=== PATIENT | male | born 1945 | race Caucasian/White ===

== ENCOUNTER → 2017-06-15 09:05 | Outpatient (POV) | payer MEDICARE, BC, SELFPAY ==
--- NOTE | 2017-06-15 10:03 | HMH.PAINSOAP ---
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 Currently he is on oxycodone 10 mg 1 tablet 5 times a day. His Nirmal and urine drug screen are appropriate. Kaspar #[id number]. He does well with his pain medication decreases his pain by 60-70%. He has not had any side effects. He is planning on going down to [place] for a couple months. In light of his trip we will give him 3 months worth of prescriptions. We will refill his oxycodone 10 mg 1 tablet 5 times a day and Ambien 10 mg 1 tablet at night. He will be back in August. We will follow up with him in August to reevaluate his symptoms at that time. We will also give him a note today to excuse him from jury duty based on his diagnosis of degenerative disc disease of lumbar spine with lumbar radiculopathy symptoms and inability to sit in a court room for an extended period of time. Objective:: Alert ?3 in no acute distress. Patient does have an antalgic gait. Motor strength of the lower extremities is 5/5. There is no gross sensory deficit. Patient does have tenderness over the lower lumbar spine. Assessment:: Degenerative disc disease of lumbar spine with lumbar radiculopathy symptoms Plan:: He is planning on going down to [place] for a couple months. In light of his trip we will give him 3 months worth of prescriptions. We will refill his oxycodone 10 mg 1 tablet 5 times a day and Ambien 10 mg 1 tablet at night. He will be back in August. We will follow up with him in August to reevaluate his symptoms at that time. We will also give him a note today to excuse him from jury duty based on his diagnosis of degenerative disc disease of lumbar spine with lumbar radiculopathy symptoms and inability to sit in a court room for an extended period of time.
[2017-06-15 10:06] VITALS: BP 141/65; PULSE 80; RESP 20; TEMP 36.9; O2SAT 98; BMI 29.3
--- NOTE | 2017-06-15 10:06 | P.CONS_ITS ---
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 Currently he is on oxycodone 10 mg 1 tablet 5 times a day. His Nirmal and urine drug screen are appropriate. Kaspar # [id number]. He does well with his pain medication decreases his pain by 60-70%. He has not had any side effects. He is planning on going down to [place] for a couple months. In light of his trip we will give him 3 months worth of prescriptions. We will refill his oxycodone 10 mg 1 tablet 5 times a day and Ambien 10 mg 1 tablet at night. He will be back in August. We will follow up with him in August to reevaluate his symptoms at that time. We will also give him a note today to excuse him from jury duty based on his diagnosis of degenerative disc disease of lumbar spine with lumbar radiculopathy symptoms and inability to sit in a court room for an extended period of time. Objective:: Alert ?3 in no acute distress. Patient does have an antalgic gait. Motor strength of the lower extremities is 5/5. There is no gross sensory deficit. Patient does have tenderness over the lower lumbar spine. Assessment:: Degenerative disc disease of lumbar spine with lumbar radiculopathy symptoms Plan:: He is planning on going down to [place] for a couple months. In light of his trip we will give him 3 months worth of prescriptions. We will refill his oxycodone 10 mg 1 tablet 5 times a day and Ambien 10 mg 1 tablet at night. He will be back in August. We will follow up with him in August to reevaluate his symptoms at that time. We will also give him a note today to excuse him from jury duty based on his diagnosis of degenerative disc disease of lumbar spine with lumbar radiculopathy symptoms and inability to sit in a court room for an extended period of time.
[2017-06-15 11:57] LABS: Amphetamine/Metha Screen,Urine Negative ng/mL (<1000); Barbiturates Screen,Urine Negative ng/mL (<200); Benzodiazepines Screen,Urine Negative ng/mL (200); Cannabinoid Screen,Urine Negative ng/mL (<50); Cocaine Screen,Urine Negative ng/g (<300); Methadone Screen,Urine Negative ng/mL (<300); Opiate Screen,Urine Positive ng/mL (<300); Phencyclidine Screen,Urine Negative ng/mL (<25)
[2017-06-23 09:16] LABS: Oxycodone (GC/MS) 6820 ng/mL (Cutoff=100)
[2017-06-23 10:55] LABS: Opiates Negative (Cutoff=100); Oxymorphone (GC/MS) 1200 ng/mL (Cutoff=100)
--- NOTE | 2017-06-24 09:21 | PC.PHONENOTE ---
called in rx for flexeril 10mg tid with 2 refills to [facility] [place]
== END ==
PROVIDERS: Visit Provider Anesthesiology
DX: M51.16 Intervertebral disc disorders with radiculopathy, lumbar region (principal)
CPT/HCPCS: 80305; 80361; 99212; G0480

== ENCOUNTER → 2017-09-07 10:06 | Outpatient (POV) | payer MEDICARE, BC, SELFPAY ==
[2017-09-07 11:04] VITALS: BP 127/71; PULSE 86; RESP 18; BMI 31.0
--- NOTE | 2017-09-07 12:23 | HMH.PAINSOAP ---
[facility] Pain Management SOAP Note Subjective:: This patient is a pleasant 71-year-old white male who we are treating for low back pain secondary due to degenerative disc disease of the lumbar spine with lumbar radiculopathy. Patient was supposed to go to [place] after his last visit however he became sick with the flu. Patient has recovered well. Patient is currently being medically managed with oxycodone 10 mg 1 p.o. 5 times a day. Patient's UDS is appropriate. Patient's DAMARIS #[id number] reviewed and appropriate. Patient is also on Ambien 10 mg at night to assist him in sleeping. Patient denies side effects to his medication however he does say that he has getting worsening urinary hesitancy. He rates his pain today a 5 out of 10. ROS General: no recent weight change, no fever, no sleep disturbances Respiratory: no cough, no shortness of air, no recurring pulmonary infections Cardiovascular/Peripheral Vascular: No chest pain, No palpitations, no edema, no shortness of breath. Gastrointestinal: no incontinence, normal bowel movements reported Genitourinary: Urinary hesitancy Musculoskeletal: Pain, left leg pain Psychiatric: normal mood/ affect Neurological: [denies weakness in extremities], [denies balance issues] Objective:: Physical Exam General: Alert and oriented x3, no acute distress, pleasant and cooperative, [on room air] Lungs: Resps E/U, Symmetrical chest expansion, Eyes: PERRL Musculoskeletal: Flexion and extension of lumbar spine somewhat guarded secondary to pain, deep tendon reflexes normal, strength in upper and lower extremities [5/5], antalgic gait noted Neurological: speech clear, car shagger equal, no gross sensory deficits Assessment:: Generative disc disease of the lumbar spine with lumbar radiculopathy Plan:: We will refill this patient's medication oxycodone 10 mg 1 tab 5 times a day. Along with Ambien 10 mg 1 tab at night. We will follow-up with him in 2 months we will give him 2 months worth of prescriptions. Patient states that he is having some new onset of neck pain. I explained to him that we would order an MRI if this continues. Dr. Oleary has reviewed this chart and agrees with this plan of care. Patient's Damaris and urine drug screen both reviewed and appropriate. Patient's DAMARIS #[id number]. Patient has been prescribed a controlled substance after being counseled on the medication, medication safety, and possible side effects. DAMARIS report has been obtained and reviewed prior to prescription and found to be appropriate. Opioid contract was reviewed and signed by the patient, and that they have agreed to all of the terms set forth by our compliance program. This note was dictated using voice recognition software and may contain errors or omissions
--- NOTE | 2017-09-07 12:27 | P.CONS_ITS ---
[facility] Pain Management SOAP Note Subjective:: This patient is a pleasant 71-year-old white male who we are treating for low back pain secondary due to degenerative disc disease of the lumbar spine with lumbar radiculopathy. Patient was supposed to go to [place] after his last visit however he became sick with the flu. Patient has recovered well. Patient is currently being medically managed with oxycodone 10 mg 1 p.o. 5 times a day. Patient's UDS is appropriate. Patient's DAMARIS #[id number] reviewed and appropriate. Patient is also on Ambien 10 mg at night to assist him in sleeping. Patient denies side effects to his medication however he does say that he has getting worsening urinary hesitancy. He rates his pain today a 5 out of 10. ROS General: no recent weight change, no fever, no sleep disturbances Respiratory: no cough, no shortness of air, no recurring pulmonary infections Cardiovascular/Peripheral Vascular: No chest pain, No palpitations, no edema, no shortness of breath. Gastrointestinal: no incontinence, normal bowel movements reported Genitourinary: Urinary hesitancy Musculoskeletal: Pain, left leg pain Psychiatric: normal mood/ affect Neurological: [denies weakness in extremities], [denies balance issues] Objective:: Physical Exam General: Alert and oriented x3, no acute distress, pleasant and cooperative, [ on room air] Lungs: Resps E/U, Symmetrical chest expansion, Eyes: PERRL Musculoskeletal: Flexion and extension of lumbar spine somewhat guarded secondary to pain, deep tendon reflexes normal, strength in upper and lower extremities [5/5], antalgic gait noted Neurological: speech clear, net mobile developer equal, no gross sensory deficits Assessment:: Generative disc disease of the lumbar spine with lumbar radiculopathy Plan:: We will refill this patient's medication oxycodone 10 mg 1 tab 5 times a day. Along with Ambien 10 mg 1 tab at night. We will follow-up with him in 2 months we will give him 2 months worth of prescriptions. Patient states that he is having some new onset of neck pain. I explained to him that we would order an MRI if this continues. Dr. Oleary has reviewed this chart and agrees with this plan of care. Patient's Damaris and urine drug screen both reviewed and appropriate. Patient's DAMARIS #[id number]. Patient has been prescribed a controlled substance after being counseled on the medication, medication safety, and possible side effects. DAMARIS report has been obtained and reviewed prior to prescription and found to be appropriate. Opioid contract was reviewed and signed by the patient, and that they have agreed to all of the terms set forth by our compliance program. This note was dictated using voice recognition software and may contain errors or omissions
[2017-09-07 13:49] LABS: Amphetamine/Metha Screen,Urine Negative ng/mL (<1000); Barbiturates Screen,Urine Negative ng/mL (<200); Benzodiazepines Screen,Urine Negative ng/mL (200); Cannabinoid Screen,Urine Negative ng/mL (<50); Cocaine Screen,Urine Negative ng/g (<300); Methadone Screen,Urine Negative ng/mL (<300); Opiate Screen,Urine Negative ng/mL (<300); Phencyclidine Screen,Urine Negative ng/mL (<25)
--- NOTE | 2017-09-08 12:53 | PC.PHONENOTE ---
09/07/17--called in RX for Flomax 0.4mg daily with no refills to pt's pharmacy
[2017-09-11 11:20] LABS: Oxycodone (GC/MS) 1084 ng/mL (Cutoff=100)
[2017-09-11 21:03] LABS: Opiates Negative (Cutoff=100)
[2017-09-11 21:04] LABS: Oxymorphone (GC/MS) 174 ng/mL (Cutoff=100)
== END ==
PROVIDERS: Visit Provider Clinical Nurse Specialist Family Health
DX: M54.16 Radiculopathy, lumbar region (principal); Z79.891 Long term (current) use of opiate analgesic
CPT/HCPCS: 80305; 80361; 80365; 99212; G0480

== ENCOUNTER → 2017-11-09 09:45 | Outpatient (POV) | payer MEDICARE, BC, SELFPAY ==
[2017-11-09 10:06] VITALS: BP 145/91; PULSE 72; RESP 18; O2SAT 98; BMI 28.8
--- NOTE | 2017-11-09 10:57 | HMH.PAINSOAP ---
[facility] Pain Management SOAP Note Subjective:: Patient is a pleasant 72-year-old white male who presents today for medication refills. Patient is currently being medically managed for pain secondary to degenerative disc disease of lumbar spine with lumbar radiculopathy. Patient's currently being managed with oxycodone 10 mg 1 p.o. 5 times a day. Patient also on Ambien 10 mg at nighttime to assist him with sleeping. Patient's DAMARIS #[id number] reviewed and appropriate. Patient's urine drug screen has been appropriate in the past. Patient denies any side effects to his medication. Patient at last visit had increased neck pain however today he states that that has resolved. Patient rates his pain a 3 out of 10. She has had some cardiac issues in the past. Patient states that he is having some cardiac workup due to recent shortness of breath at times. ROS General: no recent weight change, no fever, no sleep disturbances Respiratory: Shortness of breath at times Cardiovascular/Peripheral Vascular: No chest pain, No palpitations, no edema, no shortness of breath. Gastrointestinal: no incontinence, normal bowel movements reported Genitourinary: no incontinence Musculoskeletal: Back pain, leg pain Psychiatric: normal mood/ affect, Neurological: [denies weakness in extremities], [denies balance issues] Objective:: Physical Exam General: Alert and oriented x3, no acute distress, pleasant and cooperative, [on room air] Lungs: Resps E/U, Symmetrical chest expansion, Eyes: PERRL Musculoskeletal: Flexion and extension of lumbar spine somewhat guarded secondary to pain, deep tendon reflexes normal, strength in upper and lower extremities [5/5], slightly antalgic gait noted Neurological: speech clear, optometrist equal, no gross sensory deficits Assessment:: Degenerative disc disease of lumbar spine with lumbar radiculitis Plan:: We will refill the patient's oxycodone 10 mg 1 p.o. 5 times a day and his Ambien 10 mg at nighttime. We will give him 2 months worth of prescriptions and see him back in 2 months. Patient states he may be going to [place] I told him we would only be able to give him 2 prescriptions. If he does want a third prescription he may pick it up or have a designated person to pick it up for him. We would then see him in [address] Oleary has reviewed this chart and agrees with this plan of care. Damaris and urine drug screen both reviewed. Patient has been prescribed a controlled substance after being counseled on the medication, medication safety, and possible side effects. DAMARIS report has been obtained and reviewed prior to prescription and found to be appropriate. Opioid contract was reviewed and signed by the patient, and that they have agreed to all of the terms set forth by our compliance program. This note was dictated using voice recognition software and may contain errors or omissions
--- NOTE | 2017-11-09 11:00 | P.CONS_ITS ---
[facility] Pain Management SOAP Note Subjective:: Patient is a pleasant 72-year-old white male who presents today for medication refills. Patient is currently being medically managed for pain secondary to degenerative disc disease of lumbar spine with lumbar radiculopathy. Patient's currently being managed with oxycodone 10 mg 1 p.o. 5 times a day. Patient also on Ambien 10 mg at nighttime to assist him with sleeping. Patient's DAMARIS #[id number] reviewed and appropriate. Patient's urine drug screen has been appropriate in the past. Patient denies any side effects to his medication. Patient at last visit had increased neck pain however today he states that that has resolved. Patient rates his pain a 3 out of 10. She has had some cardiac issues in the past. Patient states that he is having some cardiac workup due to recent shortness of breath at times. ROS General: no recent weight change, no fever, no sleep disturbances Respiratory: Shortness of breath at times Cardiovascular/Peripheral Vascular: No chest pain, No palpitations, no edema, no shortness of breath. Gastrointestinal: no incontinence, normal bowel movements reported Genitourinary: no incontinence Musculoskeletal: Back pain, leg pain Psychiatric: normal mood/ affect, Neurological: [denies weakness in extremities], [denies balance issues] Objective:: Physical Exam General: Alert and oriented x3, no acute distress, pleasant and cooperative, [ on room air] Lungs: Resps E/U, Symmetrical chest expansion, Eyes: PERRL Musculoskeletal: Flexion and extension of lumbar spine somewhat guarded secondary to pain, deep tendon reflexes normal, strength in upper and lower extremities [5/5], slightly antalgic gait noted Neurological: speech clear, nursing program coordinator equal, no gross sensory deficits Assessment:: Degenerative disc disease of lumbar spine with lumbar radiculitis Plan:: We will refill the patient's oxycodone 10 mg 1 p.o. 5 times a day and his Ambien 10 mg at nighttime. We will give him 2 months worth of prescriptions and see him back in 2 months. Patient states he may be going to [place] I told him we would only be able to give him 2 prescriptions. If he does want a third prescription he may pick it up or have a designated person to pick it up for him. We would then see him in [address] Oleary has reviewed this chart and agrees with this plan of care. Damaris and urine drug screen both reviewed. Patient has been prescribed a controlled substance after being counseled on the medication, medication safety, and possible side effects. DAMARIS report has been obtained and reviewed prior to prescription and found to be appropriate. Opioid contract was reviewed and signed by the patient, and that they have agreed to all of the terms set forth by our compliance program. This note was dictated using voice recognition software and may contain errors or omissions
== END ==
PROVIDERS: Visit Provider Clinical Nurse Specialist Family Health
DX: M54.16 Radiculopathy, lumbar region (principal)
CPT/HCPCS: 99212

== ENCOUNTER → 2018-01-11 11:06 | Outpatient (POV) | payer MEDICARE, BC, SELFPAY ==
[2018-01-11 11:30] VITALS: BP 131/71; PULSE 82; RESP 18; O2SAT 98; BMI 29.6
--- NOTE | 2018-01-11 12:23 | HMH.PAINSOAP ---
[facility] Pain Management SOAP Note Subjective:: Patient is a pleasant 72-year-old white male who presents today for medication refills. Patient is currently being medically managed for pain secondary to degenerative disc disease of lumbar spine with lumbar radiculopathy. Patient is currently being managed with oxycodone 10 mg 1 p.o. 5 times a day. Patient also on Ambien 10 mg at nighttime to assist with sleeping. Patient's DAMARIS #[id number] reviewed and appropriate. Patient's drug screen has been appropriate in the past. Patient denies any side effects to his medication. Patient is currently going through some cardiac and pulmonary testing. Patient rates pain a 4 out of 10 today. ROS General: no recent weight change, no fever, no sleep disturbances Respiratory: no cough, no shortness of air, no recurring pulmonary infections Cardiovascular/Peripheral Vascular: No chest pain, No palpitations, no edema, no shortness of breath. Gastrointestinal: no incontinence, normal bowel movements reported Genitourinary: no incontinence Musculoskeletal: Back pain, leg pain Psychiatric: normal mood/ affect Neurological: [denies weakness in extremities], [denies balance issues] Objective:: Physical Exam General: Alert and oriented x3, no acute distress, pleasant and cooperative, [on room air] Lungs: Resps E/U, Symmetrical chest expansion, Eyes: PERRL Musculoskeletal: Flexion and extension of lumbar spine somewhat guarded secondary to pain, deep tendon reflexes normal, strength in upper and lower extremities [5/5], antalgic gait noted Neurological: speech clear, design assistant equal, no gross sensory deficits Assessment:: Degenerative disc disease lumbar spine with lumbar radiculopathy Plan:: We will refill the patient's oxycodone 10 mg 1 p.o. 5 times a day and his Ambien 10 mg at nighttime we will give him 2 months worth of prescriptions and see him back in [address] Oleary is reviewed this chart and agrees with this plan of care. Patient's Damaris and urine drug screen have been reviewed. Patient has been prescribed a controlled substance after being counseled on the medication, medication safety, and possible side effects. DAMARIS report has been obtained and reviewed prior to prescription and found to be appropriate. Opioid contract was reviewed and signed by the patient, and that they have agreed to all of the terms set forth by our compliance program. This note was dictated using voice recognition software and may contain errors or omissions
== END ==
PROVIDERS: Visit Provider Clinical Nurse Specialist Family Health
DX: M51.16 Intervertebral disc disorders with radiculopathy, lumbar region (principal)
CPT/HCPCS: 99202

== ENCOUNTER → 2018-03-08 11:12 | Outpatient (POV) | payer MEDICARE, BC, SELFPAY ==
[2018-03-08 11:39] VITALS: BP 131/61; PULSE 83; RESP 18; O2SAT 98; BMI 28.3
--- NOTE | 2018-03-08 13:07 | P.CONS_ITS ---
[facility] Pain Management SOAP Note Subjective:: Patient is a pleasant 72-year-old white male who presents today for medication refills. Patient is being medically managed for pain secondary to degenerative disc disease lumbar spine with lumbar radiculopathy. Patient is currently being medically managed with oxycodone 10 mg 1 p.o. 5 times a day. Patient is also on Ambien 10 mg at nighttime. Patient's DAMARIS reviewed and appropriate. Patient's drug screen has been appropriate in the past. Patient denies any side effects to his medication. Patient rates his pain a 6 out of 10. Patient's been having some intermittent neck pain however he states he does not want to follow it with an MRI at this time. ROS General: no recent weight change, no fever, no sleep disturbances Respiratory: no cough, no shortness of air, no recurring pulmonary infections Cardiovascular/Peripheral Vascular: No chest pain, No palpitations, no edema, no shortness of breath. Gastrointestinal: no incontinence, normal bowel movements reported Genitourinary: no incontinence Musculoskeletal: Neck pain, back pain, leg pain Psychiatric: normal mood/ affect Neurological: [denies weakness in extremities], [denies balance issues] Objective:: Physical Exam General: Alert and oriented x3, no acute distress, pleasant and cooperative, [on room air] Lungs: Resps E/U, Symmetrical chest expansion, Eyes: PERRL Musculoskeletal: Flexion and extension of lumbar spine somewhat guarded secondary to pain, deep tendon reflexes normal, strength in upper and lower extremities [5/5], [abnormal gait noted] Neurological: speech clear, director of personnel equal, no gross sensory deficits Assessment:: Degenerative disc disease lumbar spine with lumbar radiculopathy Plan:: We will refill the patient's oxycodone 10 mg 1 p.o. 5 times a day and Ambien 10 mg at nighttime. We will give him 2 months worth of prescriptions and follow-up back up with him in [address] Oleary is reviewed this chart and agrees with this plan of care. Patient has been instructed to call the office if he has any issues prior to his next appointment. Patient has been prescribed a controlled substance after being counseled on the medication, medication safety, and possible side effects. DAMARIS report has been obtained and reviewed prior to prescription and found to be appropriate. Opioid contract was reviewed and signed by the patient, and that they have agreed to all of the terms set forth by our compliance program. This note was dictated using voice recognition software and may contain errors or omissions
[2018-03-08 13:20] LABS: Amphetamine/Metha Screen,Urine Negative ng/mL (<1000); Barbiturates Screen,Urine Negative ng/mL (<200); Benzodiazepines Screen,Urine Negative ng/mL (<200); Cannabinoid Screen,Urine Negative ng/mL (<50); Cocaine Screen,Urine Negative ng/mL (<300); Methadone Screen,Urine Negative ng/mL (<300); Opiate Screen,Urine Negative ng/mL (<300); Phencyclidine Screen,Urine Negative ng/mL (<25)
[2018-03-11 16:39] LABS: Oxycodone (GC/MS) 784 ng/mL (Cutoff=100)
[2018-03-12 09:00] LABS: Opiates Negative (Cutoff=100)
== END ==
PROVIDERS: Visit Provider Clinical Nurse Specialist Family Health
DX: M51.16 Intervertebral disc disorders with radiculopathy, lumbar region (principal); Z79.899 Other long term (current) drug therapy
CPT/HCPCS: 80305; 80361; 80365; 99213; G0480

== ENCOUNTER → 2018-06-07 09:43 | Outpatient (POV) | payer MEDICARE, BC, SELFPAY ==
[2018-06-07 09:51] VITALS: BP 122/64; PULSE 77; RESP 18; O2SAT 98; BMI 26.2
--- NOTE | 2018-06-07 10:01 | HMH.PAINSOAP ---
[facility] Pain Management SOAP Note Subjective:: Is a pleasant 72-year-old white male who presents today for medication refills. Patient is being medically managed for pain secondary to degenerative disc disease lumbar spine with lumbar radiculopathy. He is currently being medically managed with oxycodone 10 mg 1 p.o. 5 times a day and also Ambien 10 mg at nighttime. He states the pain medication helps up to 80%. Damaris reviewed and appropriate drug screen has been appropriate in the past. Patient did fill in another pharmacy due to his trip to [place]. Patient states his baseline pain is a 3 out of 10. Patient is having some new cardiac pain which he is good to follow-up with his marine meteorologist about. ROS General: no recent weight change, no fever, no sleep disturbances Respiratory: no cough, no shortness of air, no recurring pulmonary infections Cardiovascular/Peripheral Vascular: No chest pain, No palpitations, no edema, no shortness of breath. Gastrointestinal: no incontinence, normal bowel movements reported Genitourinary: no incontinence Musculoskeletal: Neck pain, back pain, leg pain Psychiatric: normal mood/ affect Neurological: [denies weakness in extremities], [denies balance issues] Objective:: Physical Exam General: Alert and oriented x3, no acute distress, pleasant and cooperative, [on room air] Lungs: Resps E/U, Symmetrical chest expansion, Eyes: PERRL Musculoskeletal: Flexion and extension of lumbar spine somewhat guarded secondary to pain, deep tendon reflexes normal, strength in upper and lower extremities [5/5], [abnormal gait noted] Neurological: speech clear, quality control microbiology supervisor equal, no gross sensory deficits Assessment:: Degenerative disc disease lumbar spine with lumbar radiculopathy Plan:: I will follow-up with the patient in 2 months and reassess his symptoms at that time. We will refill the patient's oxycodone 10 mg 1 p.o. 5 times a day and Ambien 10 mg at nighttime. We will give him [address] Oleary has reviewed this chart and agrees with this plan of care. Patient has been prescribed a controlled substance after being counseled on the medication, medication safety, and possible side effects. DAMARIS report has been obtained and reviewed prior to prescription and found to be appropriate. Opioid contract was reviewed and signed by the patient, and that they have agreed to all of the terms set forth by our compliance program. This note was dictated using voice recognition software and may contain errors or omissions
== END ==
PROVIDERS: Visit Provider Clinical Nurse Specialist Family Health
DX: M51.16 Intervertebral disc disorders with radiculopathy, lumbar region (principal)
CPT/HCPCS: 99213

== ENCOUNTER → 2018-08-10 10:55 | Outpatient (POV) | payer MEDICARE, BC, SELFPAY ==
[2018-08-10 11:26] VITALS: BP 141/60; PULSE 78; RESP 18; O2SAT 98; BMI 27.3
[2018-08-10 14:00] LABS: Amphetamine/Metha Screen,Urine Negative ng/mL (<1000); Barbiturates Screen,Urine Negative ng/mL (<200); Benzodiazepines Screen,Urine Negative ng/mL (<200); Cannabinoid Screen,Urine Negative ng/mL (<50); Cocaine Screen,Urine Negative ng/mL (<300); Methadone Screen,Urine Negative ng/mL (<300); Opiate Screen,Urine Positive ng/mL (<300); Phencyclidine Screen,Urine Negative ng/mL (<25)
--- NOTE | 2018-08-10 16:17 | HMH.PAINSOAP ---
[facility] Pain Management SOAP Note Subjective:: Is a pleasant 72-year-old white male who presents today for medication refills. Patient is being medically managed for pain secondary to degenerative disc disease lumbar spine with lumbar radiculopathy. Patient is currently being medically managed with oxycodone 10 mg 1 p.o. 5 times a day. He is also on Ambien 10 mg at nighttime. He states his pain medication helps him up to 80%. Damaris and urine drug screens have been reviewed and appropriate. Patient rates his pain a 6 out of 10 which is slightly higher however he states that he is over all at baseline. ROS General: no recent weight change, no fever, no sleep disturbances Respiratory: no cough, no shortness of air, no recurring pulmonary infections Cardiovascular/Peripheral Vascular: No chest pain, No palpitations, no edema, no shortness of breath. Gastrointestinal: no incontinence, normal bowel movements reported Genitourinary: no incontinence Musculoskeletal: Back pain, neck pain, leg pain Psychiatric: normal mood/ affect Neurological: [denies weakness in extremities], [denies balance issues] Objective:: Physical Exam General: Alert and oriented x3, no acute distress, pleasant and cooperative, [on room air] Lungs: Resps E/U, Symmetrical chest expansion, [CTA bilateral] Eyes: PERRL Musculoskeletal: Flexion and extension of lumbar spine somewhat guarded secondary to pain, deep tendon reflexes normal, strength in upper and lower extremities [5/5], [abnormal gait noted] Neurological: speech clear, marine 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 5 times a day and Ambien 10 mg at nighttime. We will give him 2 months worth of prescriptions and follow-up with him in 2 months to reassess his symptoms at that time. He is been instructed to call the office if he has any issues prior to his next appointment Patient has been prescribed a controlled substance after being counseled on the medication, medication safety, and possible side effects. DAMARIS report has been obtained and reviewed prior to prescription and found to be appropriate. Opioid contract was reviewed and signed by the patient, and that they have agreed to all of the terms set forth by our compliance program. Dr. Oleary has reviewed this note and agrees with this plan of care. This note was dictated using voice recognition software and may contain errors or omissions
[2018-08-15 15:08] LABS: Oxycodone (GC/MS) >3000 ng/mL (Cutoff=100)
[2018-08-16 08:24] LABS: Opiates Negative (Cutoff=100); Oxymorphone (GC/MS) 252 ng/mL (Cutoff=100)
== END ==
PROVIDERS: Visit Provider Clinical Nurse Specialist Family Health
DX: M51.16 Intervertebral disc disorders with radiculopathy, lumbar region (principal); Z79.899 Other long term (current) drug therapy
CPT/HCPCS: 80305; 80361; 80365; 99213; G0480

== ENCOUNTER → 2018-10-04 10:56 | Outpatient (POV) | payer MEDICARE, BC, SELFPAY ==
[2018-10-04 11:08] VITALS: BP 146/83; PULSE 83; RESP 18; O2SAT 98; BMI 26.6
--- NOTE | 2018-10-04 11:48 | P.CONS_ITS ---
[facility] Pain Management SOAP Note Subjective:: Patient is a pleasant 72-year-old white male who presents today for medication refills he is being treated for pain secondary to degenerative disc disease lumbar spine with lumbar radiculopathy. He is currently being medically managed with oxycodone 10 mg 1 p.o. 5 times a day. He is also on Ambien 10 mg at nighttime. He states medication helps up to 80% Damaris and urine drug screens are reviewed and appropriate. He rates his pain a 6 out of 10 today. ROS General: no recent weight change, no fever, no sleep disturbances Respiratory: no cough, no shortness of air, no recurring pulmonary infections Cardiovascular/Peripheral Vascular: No chest pain, No palpitations, no edema, no shortness of breath. Gastrointestinal: no incontinence, normal bowel movements reported Genitourinary: no incontinence Musculoskeletal: Back pain, neck pain, leg pain Psychiatric: normal mood/ affect Neurological: [denies weakness in extremities], [denies balance issues] Objective:: Physical Exam General: Alert and oriented x3, no acute distress, pleasant and cooperative, [on room air] Lungs: Resps E/U, Symmetrical chest expansion, Eyes: PERRL Musculoskeletal: Flexion and extension of lumbar spine somewhat guarded secondary to pain, deep tendon reflexes normal, strength in upper and lower extremities [5/5], [abnormal gait noted] Neurological: speech clear, geospatial systems integrator equal, no gross sensory deficits Assessment:: Degenerative disc disease lumbar spine with lumbar radiculopathy Plan:: We will refill the patient's oxycodone 10 mg 1 p.o. 5 times a day and Ambien 10 mg at nighttime we will give him 2 months with the prescriptions and follow-up with him in 2 months to reassess his symptoms at that time he is been instructed to call the office if he has any issues prior to his next appointment. Patient has been prescribed a controlled substance after being counseled on the medication, medication safety, and possible side effects. DAMARIS report has been obtained and reviewed prior to prescription and found to be appropriate. Opioid contract was reviewed and signed by the patient, and that they have agreed to all of the terms set forth by our compliance program. Dr. Oleary has reviewed this note and agrees with this plan of care. This note was dictated using voice recognition software and may contain errors or omissions
== END ==
PROVIDERS: Visit Provider Clinical Nurse Specialist Family Health
DX: M51.16 Intervertebral disc disorders with radiculopathy, lumbar region (principal)
CPT/HCPCS: 99212

== ENCOUNTER → 2018-11-29 10:05 | Outpatient (POV) | payer MEDICARE, BC, SELFPAY ==
[2018-11-29 10:15] VITALS: BP 147/68; PULSE 66; RESP 18; O2SAT 98; BMI 26.6
--- NOTE | 2018-11-29 10:26 | HMH.PAINSOAP ---
[facility] Pain Management SOAP Note Subjective:: Patient is a pleasant 73-year-old white male who presents today for medication refills. He is currently dealing with a episode of gout. However his pain overall is a 4 out of 10. He is doing well with his oxycodone 10 mg 1 p.o. 5 times a day. Is also on Ambien 10 mg at nighttime and cyclobenzaprine 10 mg 1 p.o. 3 times daily. He states medication helps him up to 80%. He denies side effects urine drug screens have been appropriate. Damaris #[id number] reviewed and appropriate. ROS General: no recent weight change, no fever, no sleep disturbances Respiratory: no cough, no shortness of air, no recurring pulmonary infections Cardiovascular/Peripheral Vascular: No chest pain, No palpitations, no edema, no shortness of breath. Gastrointestinal: no incontinence, normal bowel movements reported Genitourinary: no incontinence Musculoskeletal: Back pain, neck pain, leg pain, left foot pain Psychiatric: normal mood/ affect Neurological: [denies weakness in extremities], [denies balance issues] Objective:: Physical Exam General: Alert and oriented x3, no acute distress, pleasant and cooperative, [on room air] Lungs: Resps E/U, Symmetrical chest expansion, Eyes: PERRL Musculoskeletal: Flexion and extension of lumbar spine somewhat guarded secondary to pain, deep tendon reflexes normal, strength in upper and lower extremities [5/5], [abnormal gait noted] Neurological: speech clear, patient service specialist equal, no gross sensory deficits Assessment:: Degenerative disc disease lumbar spine with lumbar radiculopathy Plan:: We will refill the patient's oxycodone 10 mg 1 p.o. 5 times a day, Ambien 10 mg at night 0.9 and is likely Benzapril 10 mg 1 p.o. 3 times daily as needed. We will give him 2 months worth of prescriptions and follow-up with him in 2 months to reassess his symptoms at that time he has been instructed to call the office if he has any issues prior to his next appointment. Patient has been prescribed a controlled substance after being counseled on the medication, medication safety, and possible side effects. DAMARIS report has been obtained and reviewed prior to prescription and found to be appropriate. Opioid contract was reviewed and signed by the patient, and that they have agreed to all of the terms set forth by our compliance program. Dr. Oleary has reviewed this note and agrees with this plan of care. This note was dictated using voice recognition software and may contain errors or omissions
[2018-11-29 14:24] LABS: Amphetamine/Metha Screen,Urine Negative ng/mL (<1000); Barbiturates Screen,Urine Negative ng/mL (<200); Benzodiazepines Screen,Urine Negative ng/mL (<200); Cannabinoid Screen,Urine Negative ng/mL (<50); Cocaine Screen,Urine Negative ng/mL (<300); Methadone Screen,Urine Negative ng/mL (<300); Opiate Screen,Urine Positive ng/mL (<300); Phencyclidine Screen,Urine Negative ng/mL (<25)
[2018-12-04 16:09] LABS: Oxycodone (GC/MS) 2397 ng/mL (Cutoff=100)
[2018-12-05 22:48] LABS: Opiates Negative (Cutoff=100); Oxymorphone (GC/MS) 175 ng/mL (Cutoff=100)
== END ==
PROVIDERS: Visit Provider Clinical Nurse Specialist Family Health
DX: M51.16 Intervertebral disc disorders with radiculopathy, lumbar region (principal); Z79.899 Other long term (current) drug therapy
CPT/HCPCS: 80305; 80361; 80365; 99212; G0480

== ENCOUNTER → 2019-01-31 12:22 | Outpatient (POV) | payer MEDICARE, SELFPAY ==
[2019-01-31 13:08] VITALS: BP 134/63; PULSE 75; RESP 18; O2SAT 98; BMI 25.7
--- NOTE | 2019-01-31 13:47 | P.CONS_ITS ---
[facility] Pain Management SOAP Note Subjective:: Patient is a pleasant 73-year-old white male who presents today for medication refills. He is currently doing well rating his pain a 6 out of 10 which is higher than his normal however he is been driving to his appointments. He is currently on oxycodone 10 mg 1 p.o. 5 times a day and Ambien 10 mg at nighttime along with cyclobenzaprine 10 mg 1 p.o. 3 times daily. Medication helps him up to 80%. Damaris #[id number] reviewed and appropriate urine drug screens have been appropriate. ROS General: no recent weight change, no fever, no sleep disturbances Respiratory: no cough, no shortness of air, no recurring pulmonary infections Cardiovascular/Peripheral Vascular: No chest pain, No palpitations, no edema, no shortness of breath. Gastrointestinal: no incontinence, normal bowel movements reported Genitourinary: no incontinence Musculoskeletal: Back pain, leg pain, left foot pain Psychiatric: normal mood/ affect Neurological: [denies weakness in extremities], [denies balance issues] Objective:: Physical Exam General: Alert and oriented x3, no acute distress, pleasant and cooperative, [on room air] Lungs: Resps E/U, Symmetrical chest expansion, Eyes: PERRL Musculoskeletal: Flexion and extension of lumbar spine somewhat guarded secondary to pain, deep tendon reflexes normal, strength in upper and lower extremities [5/5], [abnormal gait noted] Neurological: speech clear, matchbook assembler equal, no gross sensory deficits Assessment:: Degenerative disc disease lumbar spine with lumbar radiculopathy Plan:: We will refill his oxycodone 10 mg 1 p.o. 5 times a day, Ambien 10 mg 1 p.o. at nighttime and cyclobenzaprine 10 mg 1 p.o. 3 times daily we will give him 2 months worth of medication and reassess his pain after. Patient's been instructed to call the office if he has any issues prior to his next appointment Patient has been prescribed a controlled substance after being counseled on the medication, medication safety, and possible side effects. DAMARIS report has been obtained and reviewed prior to prescription and found to be appropriate. Opioid contract was reviewed and signed by the patient, and that they have agreed to all of the terms set forth by our compliance program. Dr. Oleary has reviewed this note and agrees with this plan of care. This note was dictated using voice recognition software and may contain errors or omissions Pain Management [employer] *Have you ever received a pneumonia vaccine?: Yes *Have you received a flu vaccine this season?: Yes - *Social History *Occupational Status:: other *Travel in the last 8 weeks: None
== END ==
PROVIDERS: PCP Clinical Nurse Specialist Family Health; Visit Provider Clinical Nurse Specialist Family Health
DX: M51.16 Intervertebral disc disorders with radiculopathy, lumbar region (principal)
CPT/HCPCS: 99212

== ENCOUNTER → 2019-03-28 12:23 | Outpatient (POV) | payer MEDICARE, SELFPAY ==
[2019-03-28 13:08] VITALS: BP 137/71; PULSE 72; RESP 18; O2SAT 99; BMI 26.2
--- NOTE | 2019-03-28 13:20 | HMH.PAINSOAP ---
[facility] Pain Management SOAP Note Subjective:: Patient is a pleasant 73-year-old white male who presents today for medication refills. Patient rates his pain today 5 out of 10 which is his baseline. He is currently on oxycodone 10 mg 1 p.o. 5 times a day and Ambien 10 mg at nighttime along with cyclobenzaprine 10 mg 1 p.o. 3 times daily patient states the medication helps him to 80% denies side effects to it. Damaris #[id number] reviewed and appropriate. Urine drug screens have been appropriate. ROS General: no recent weight change, no fever, no sleep disturbances Respiratory: no cough, no shortness of air, no recurring pulmonary infections Cardiovascular/Peripheral Vascular: No chest pain, No palpitations, no edema, no shortness of breath. Gastrointestinal: no new onset incontinence, normal bowel movements reported Genitourinary: no new onset incontinence Musculoskeletal: Back pain Psychiatric: normal mood/ affect, Neurological: [denies new onset weakness in extremities], [denies new onset balance issues] Objective:: Physical Exam General: Alert and oriented x3, no acute distress, pleasant and cooperative, [on room air] Lungs: Resps E/U, Symmetrical chest expansion, Eyes: PERRL Musculoskeletal: Flexion and extension of lumbar spine somewhat guarded secondary to pain, deep tendon reflexes normal, strength in upper and lower extremities [5/5], [abnormal gait noted] Neurological: speech clear, livestock auctioneer equal, no gross sensory deficits Assessment:: Degenerative disc disease lumbar spine with lumbar radiculopathy Plan:: Patient and I did briefly speak about potentially ordering a new MRI for him. We can address this at next visit. We will refill his oxycodone 10 mg 1 p.o. 5 times a day Ambien and cyclobenzaprine he is been instructed to call the office if he has any issues prior to his next appointment we will give him 2 months worth of medication follow-up with him in 2 months. Patient has been prescribed a controlled substance after being counseled on the medication, medication safety, and possible side effects. DAMARIS report has been obtained and reviewed prior to prescription and found to be appropriate. Opioid contract was reviewed and signed by the patient, and that they have agreed to all of the terms set forth by our compliance program. Dr. Oleary has reviewed this note and agrees with this plan of care. This note was dictated using voice recognition software and may contain errors or omissions [facility] History I have reviewed the patient's past medical history: Yes *Have you ever received a pneumonia vaccine?: Yes *Have you received a flu vaccine this season?: Yes - *Social History *Occupational Status:: other *Travel in the last 8 weeks: None Family Hx:: Non-contributory
--- NOTE | 2019-03-28 13:27 | P.CONS_ITS ---
[facility] Pain Management SOAP Note Subjective:: Patient is a pleasant 73-year-old white male who presents today for medication refills. Patient rates his pain today 5 out of 10 which is his baseline. He is currently on oxycodone 10 mg 1 p.o. 5 times a day and Ambien 10 mg at nighttime along with cyclobenzaprine 10 mg 1 p.o. 3 times daily patient states the medication helps him to 80% denies side effects to it. Damaris #[id number] reviewed and appropriate. Urine drug screens have been appropriate. ROS General: no recent weight change, no fever, no sleep disturbances Respiratory: no cough, no shortness of air, no recurring pulmonary infections Cardiovascular/Peripheral Vascular: No chest pain, No palpitations, no edema, no shortness of breath. Gastrointestinal: no new onset incontinence, normal bowel movements reported Genitourinary: no new onset incontinence Musculoskeletal: Back pain Psychiatric: normal mood/ affect, Neurological: [denies new onset weakness in extremities], [denies new onset balance issues] Objective:: Physical Exam General: Alert and oriented x3, no acute distress, pleasant and cooperative, [on room air] Lungs: Resps E/U, Symmetrical chest expansion, Eyes: PERRL Musculoskeletal: Flexion and extension of lumbar spine somewhat guarded secondary to pain, deep tendon reflexes normal, strength in upper and lower extremities [5/5], [abnormal gait noted] Neurological: speech clear, central communications specialist equal, no gross sensory deficits Assessment:: Degenerative disc disease lumbar spine with lumbar radiculopathy Plan:: Patient and I did briefly speak about potentially ordering a new MRI for him. We can address this at next visit. We will refill his oxycodone 10 mg 1 p.o. 5 times a day Ambien and cyclobenzaprine he is been instructed to call the office if he has any issues prior to his next appointment we will give him 2 months worth of medication follow-up with him in 2 months. Patient has been prescribed a controlled substance after being counseled on the medication, medication safety, and possible side effects. DAMARIS report has been obtained and reviewed prior to prescription and found to be appropriate. Opioid contract was reviewed and signed by the patient, and that they have agreed to all of the terms set forth by our compliance program. Dr. Oleary has reviewed this note and agrees with this plan of care. This note was dictated using voice recognition software and may contain errors or omissions [facility] History I have reviewed the patient's past medical history: Yes *Have you ever received a pneumonia vaccine?: Yes *Have you received a flu vaccine this season?: Yes - *Social History *Occupational Status:: other *Travel in the last 8 weeks: None Family Hx:: Non-contributory
[2019-03-28 16:58] LABS: Amphetamine/Metha Screen,Urine Negative ng/mL (<1000); Barbiturates Screen,Urine Negative ng/mL (<200); Benzodiazepines Screen,Urine Negative ng/mL (<200); Cannabinoid Screen,Urine Negative ng/mL (<50); Cocaine Screen,Urine Negative ng/mL (<300); Methadone Screen,Urine Negative ng/mL (<300); Opiate Screen,Urine Negative ng/mL (<300); Phencyclidine Screen,Urine Negative ng/mL (<25)
[2019-04-01 10:15] LABS: Oxycodone (GC/MS) 785 ng/mL (Cutoff=100)
[2019-04-01 17:15] LABS: Opiates Negative (Cutoff=100); Oxymorphone (GC/MS) 168 ng/mL (Cutoff=100)
== END ==
PROVIDERS: Visit Provider Clinical Nurse Specialist Family Health
DX: M51.16 Intervertebral disc disorders with radiculopathy, lumbar region (principal); Z79.899 Other long term (current) drug therapy
CPT/HCPCS: 80305; 80361; 80365; 99212; G0480

== ENCOUNTER → 2019-05-30 12:41 | Outpatient (POV) | payer MEDICARE, SELFPAY ==
--- NOTE | 2019-05-30 13:29 | HMH.PAINSOAP ---
[facility] Pain Management SOAP Note Subjective:: Patient is a pleasant 73-year-old white male who presents today for medication refills. Patient is currently on oxycodone 10 mg 1 p.o. 5 times a day and Ambien 10 mg at nighttime. He is also on cyclobenzaprine 10 mg 1 p.o. 3 times daily. He states his medication helps him up to 70%. He rates his pain a 5 out of 10 which is his baseline. Patient states he is having some worsening pains. We discussed a new MRI. Patient's Damaris #[id number] reviewed and appropriate urine drug screens have been appropriate. ROS General: no recent weight change, no fever, no sleep disturbances Respiratory: no cough, no shortness of air, no recurring pulmonary infections Cardiovascular/Peripheral Vascular: No chest pain, No palpitations, no edema, no shortness of breath. Gastrointestinal: no new onset incontinence, normal bowel movements reported Genitourinary: no new onset incontinence Musculoskeletal: Back pain, leg pain Psychiatric: normal mood/ affect Neurological: [denies new onset weakness in extremities], [denies new onset balance issues] Objective:: Physical Exam General: Alert and oriented x3, no acute distress, pleasant and cooperative, [on room air] Lungs: Resps E/U, Symmetrical chest expansion, Eyes: PERRL Musculoskeletal: Flexion and extension of lumbar spine somewhat guarded secondary to pain, deep tendon reflexes normal, strength in upper and lower extremities [5/5], [abnormal gait noted] Neurological: speech clear, candy forming machine operator equal, no gross sensory deficits Assessment:: Degenerative disc disease lumbar spine with lumbar radiculopathy Plan:: We will refill the patient's oxycodone 10 mg 1 p.o. 5 times a day and given 2 months worth medication. We will see him back in 2 to 3 months reassess his symptoms at that time he is been instructed call the office if he has any issues we will plan on an MRI in several months. Patient has been prescribed a controlled substance after being counseled on the medication, medication safety, and possible side effects. DAMARIS report has been obtained and reviewed prior to prescription and found to be appropriate. Opioid contract was reviewed and signed by the patient, and that they have agreed to all of the terms set forth by our compliance program. Dr. Oleary has reviewed this note and agrees with this plan of care. This note was dictated using voice recognition software and may contain errors or omissions [facility] History I have reviewed the patient's past medical history: Yes *Have you ever received a pneumonia vaccine?: Yes *Have you received a flu vaccine this season?: Yes - *Social History *Occupational Status:: other *Travel in the last 8 weeks: None Family Hx:: Non-contributory
[2019-05-30 13:48] VITALS: BP 147/65; PULSE 77; RESP 18; O2SAT 98; BMI 27.3
== END ==
PROVIDERS: Visit Provider Clinical Nurse Specialist Family Health
DX: M51.16 Intervertebral disc disorders with radiculopathy, lumbar region (principal)
CPT/HCPCS: 99212

== ENCOUNTER → 2019-09-05 13:11 | Outpatient (POV) | payer MEDICARE, SELFPAY ==
[2019-09-05 13:28] VITALS: BP 132/72; PULSE 80; RESP 18; TEMP 36.3; O2SAT 99; BMI 27.3
--- NOTE | 2019-09-05 13:31 | P.CONS_ITS ---
[facility] Pain Management SOAP Note Subjective:: Patient is a pleasant 63-year-old white male who presents today for medication refills. Patient is currently on oxycodone 10 mg 1 p.o. 5 times a day and Ambien 10 mg at nighttime. He has also on cyclobenzaprine 10 mg 1 p.o. 3 times daily patient's Damaris number a [id number] reviewed and appropriate urine drug screens have been appropriate. Patient states that his medication is helping him up to 80%. He rates his pain a 5 out of 10 ROS General: no recent weight change, no fever, no sleep disturbances Respiratory: no cough, no shortness of air, no recurring pulmonary infections Cardiovascular/Peripheral Vascular: No chest pain, No palpitations, no edema, no shortness of breath. Gastrointestinal: no new onset incontinence, normal bowel movements reported Genitourinary: no new onset incontinence Musculoskeletal: Back pain, leg pain Psychiatric: normal mood/ affect, Neurological: [denies new onset weakness in extremities], [denies new onset balance issues] Objective:: Physical Exam General: Alert and oriented x3, no acute distress, pleasant and cooperative, [on room air] Lungs: Resps E/U, Symmetrical chest expansion, Eyes: PERRL Musculoskeletal: Flexion and extension of lumbar spine somewhat guarded secondary to pain, deep tendon reflexes normal, strength in upper and lower extremities [5/5], antalgic gait noted Neurological: speech clear, vice president business development equal, no gross sensory deficits Assessment:: Degenerative disc disease lumbar spine with lumbar radiculopathy Plan:: We will refill the patient's oxycodone 10 mg 1 p.o. 5 times a day and give him 2 months worth of medication. We will see him back in 2 to 3 months reassess his symptoms at that time he has been instructed to call the office if he has any issues prior to his next appointment. We specifically discussed risk factors fo r Covid-19 including age, heart or lung disease, diabetes, immunosuppression and travel. We also discussed that NSAIDs may worsen Covid-19 infection symptoms and that they should not be used to treat Covid-19 symptoms. Patient was also informed that corticosteroids in any form oral or injectable will decrease immune response and may increase risk of Covid-[address] Oleary has reviewed this patient's chart and this note and agrees with plan of care. Patient has been instructed to call the office if they have any issues prior to the next appointment. Patient has been prescribed a controlled substance after being counseled on the medication, medication safety, and possible side effects. DAMARIS report has been obtained and reviewed prior to prescription and found to be appropriate. Opioid contract was reviewed and signed by the patient, and that they have agreed to all of the terms set forth by our compliance program. [facility] History I have reviewed the patient's past medical history: Yes *Have you ever received a pneumonia vaccine?: Yes *Have you received a flu vaccine this season?: Yes - *Social History *Occupational Status:: other *Travel in the last 8 weeks: None Family Hx:: Non-contributory
== END ==
PROVIDERS: Visit Provider Clinical Nurse Specialist Family Health
DX: M51.16 Intervertebral disc disorders with radiculopathy, lumbar region (principal)
CPT/HCPCS: 99212

== ENCOUNTER → 2019-11-01 10:59 | Outpatient (POV) | payer MEDICARE, SELFPAY ==
[2019-11-01 11:26] VITALS: BP 141/75; PULSE 70; RESP 18; TEMP 36.6; O2SAT 99; BMI 26.6
--- NOTE | 2019-11-01 15:04 | P.CONS_ITS ---
[facility] Pain Management SOAP Note Subjective:: Patient is a very pleasant 74-year-old white male who presents today for medication refills. He rates his pain today 6 out of 10. He is currently on oxycodone 10 mg 1 p.o. 5 times a day and Ambien 10 mg at nighttime. He is also on cyclobenzaprine 10 mg 1 p.o. 3 times daily. Patient's Damaris #[id number] reviewed and appropriate. Urine drug screens have been appropriate in the past. Patient states his medication helps him up to 80%. ROS General: no recent weight change, no fever, no sleep disturbances Respiratory: no cough, no shortness of air, no recurring pulmonary infections Cardiovascular/Peripheral Vascular: No chest pain, No palpitations, no edema, no shortness of breath. Gastrointestinal: no new onset incontinence, normal bowel movements reported Genitourinary: no new onset incontinence Musculoskeletal: Back pain, leg pain Psychiatric: normal mood/ affect, Neurological: [denies new onset weakness in extremities], [denies new onset balance issues] Objective:: Physical Exam General: Alert and oriented x3, no acute distress, pleasant and cooperative, [on room air] Lungs: Resps E/U, Symmetrical chest expansion, Eyes: PERRL Musculoskeletal: Flexion and extension of lumbar spine somewhat guarded secondary to pain, deep tendon reflexes normal, strength in upper and lower extremities [5/5], [abnormal gait noted] Neurological: speech clear, receiving associate store equal, no gross sensory deficits Assessment:: Degenerative disc disease lumbar spine with lumbar radiculopathy Plan:: We will refill the patient's oxycodone 10 mg 1 p.o. 5 times a day and give him 2 months worth of medication. We will see him back in 2 months reassess his symptoms at that time he has been instructed to call this office if he has any issues prior to his next appointment. Dr. Oleary has reviewed this note and agrees with this plan of care. This note was dictated using voice recognition software and may contain errors or omissions Patient has been prescribed a controlled substance after being counseled on the medication, medication safety, and possible side effects. DAMARIS report has been obtained and reviewed prior to prescription and found to be appropriate. Opioid contract was reviewed and signed by the patient, and that they have agreed to all of the terms set forth by our compliance program. [facility] History I have reviewed the patient's past medical history: Yes *Have you ever received a pneumonia vaccine?: Yes *Have you received a flu vaccine this season?: Yes - *Social History *Occupational Status:: other *Travel in the last 8 weeks: None Family Hx:: Non-contributory
== END ==
PROVIDERS: Visit Provider Clinical Nurse Specialist Family Health
DX: M51.16 Intervertebral disc disorders with radiculopathy, lumbar region (principal); Z76.0 Encounter for issue of repeat prescription
CPT/HCPCS: 99212

== ENCOUNTER → 2019-12-29 10:47 | Outpatient (POV) | payer MEDICARE, SELFPAY ==
[2019-12-29 11:24] VITALS: BP 148/88; PULSE 85; RESP 18; O2SAT 98; BMI 26.2
--- NOTE | 2019-12-29 11:28 | P.CONS_ITS ---
[facility] Pain Management SOAP Note Subjective:: Patient is a 74-year-old white male who presents today for medication refills. He has been treated for low back pain with lumbar radiculopathy symptoms. Is currently managed with oxycodone 2 mg 1 tablet p.o. 5 times daily and Ambien 10 mg 1 tablet p.o. at bedtime. He denies any side effects to the medications. Patient's Nirmal #[id number] has been reviewed and is appropriate. His urine drug screens have been appropriate. His morphine equivalent is 75. He rates his pain a 3 out of 10. Review of Systems General: No recent weight changes, no fever, no sleep disturbances Respiratory: No cough, no shortness of air, no recurring pulmonary infections Cardiovascular/peripheral vascular: No chest pain, no palpitations, no edema, no shortness of breath Gastrointestinal: No new onset incontinence, normal bowel movements reported Genitourinary: No new onset incontinence Musculoskeletal: Low back pain Psychiatric: Normal mood/affect Neurological: [Denies weakness in extremities], [denies balance issues] Objective:: Physical exam General: Alert and oriented x3, no acute distress, pleasant and cooperative, [on room air] Lungs: Respirations even and unlabored, symmetrical chest expansion Eyes: PERRL Musculoskeletal: Flexion and extension of lumbar spine somewhat guarded secondary to pain, deep tendon reflexes normal, strength in upper and lower extremities [5/5], [abnormal gait noted] Neurological: Speech clear, weed control inspector equal, no gross sensory deficit Assessment:: Degenerative 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 5 times daily. We will also refill Ambien 10 mg 1 tablet p.o. daily. We will give him 3 months worth medication see him back in the clinic in 3 months to reassess his symptoms. Patient has been instructed to contact clinic if he has any concerns for his next appointment. The patient and I specifically discussed risk factors for COVID19. These risks include, but are not limited to age greater than 60, heart or lung disease, diabetes, immunosuppression, and travel. We also discussed NSAIDs may worsen COVID19 infection or symptoms. Patient should not use NSAIDs to treat COVID19 signs or symptoms. Patient was also informed that any type of corticosteroid of any form (oral or injection) will decrease the patient's immune system response and may increase the likelihood of COVID19 i nfection and symptoms. Dr. Oleary has reviewed this note and agrees with this plan of care. This note was dictated using voice recognition software and make contain errors or omissions. [facility] History I have reviewed the patient's past medical history: Yes *Have you ever received a pneumonia vaccine?: Yes *Have you received a flu vaccine this season?: Yes - *Social History *Occupational Status:: other *Travel in the last 8 weeks: None Family Hx:: Non-contributory
== END ==
PROVIDERS: Visit Provider Clinical Nurse Specialist Family Health
DX: M51.16 Intervertebral disc disorders with radiculopathy, lumbar region (principal)
CPT/HCPCS: 99212

== ENCOUNTER → 2020-03-29 10:07 | Outpatient (POV) | payer MEDICARE, SELFPAY ==
[2020-03-29 10:35] VITALS: BP 133/78; PULSE 74; RESP 18; O2SAT 98; BMI 26.6
--- NOTE | 2020-03-29 17:57 | P.CONS_ITS ---
[facility] Pain Management SOAP Note Subjective:: Patient is a pleasant 74-year-old white male who presents today for medication refills. He is being treated for chronic low back pain with lumbar radiculopathy symptoms. He rates his pain a 4 out of 10 today. Patient is managed with oxycodone 10 mg 1 tablet p.o. 5 times daily and Ambien 10 mg 1 tab let p.o. at bedtime for insomnia. He denies any side effects of medications. He does say he is having worsening problems with insomnia. He has tried magnesium as well as [id number] Benadryl and melatonin with no relief. Patient is asking for a different type of medication for insomnia. Review of Systems General: No recent weight changes, no fever, no sleep disturbances Respiratory: No cough, no shortness of air, no recurring pulmonary infections Cardiovascular/peripheral vascular: No chest pain, no palpitations, no edema, no shortness of breath Gastrointestinal: No new onset incontinence, normal bowel movements reported Genitourinary: No new onset incontinence Musculoskeletal: Low back pain Psychiatric: Normal mood/affect Neurological: [Denies weakness in extremities], [denies balance issues] Objective:: Physical exam General: Alert and oriented x3, no acute distress, pleasant and cooperative, [on room air] Lungs: Respirations even and unlabored, symmetrical chest expansion Eyes: PERRL Musculoskeletal: Flexion and extension of lumbar spine somewhat guarded secondary to pain, deep tendon reflexes normal, strength in upper and lower e xtremities [5/5], [abnormal gait noted] Neurological: Speech clear, social media marketing manager equal, no gross sensory deficit Assessment:: Degenerative disc disease lumbar spine with lumbar radiculopathy symptoms Plan:: We will refill the patient's oxycodone 10 mg 1 tablet p.o. 5 times daily. We will also refill his Ambien 10 mg 1 tablet p.o. daily. I have advised the patient he can try taking CBD oil THC free. He was given educational information regarding CBD oil. He will research the oil and likely start the medication to see if it gives him relief from insomnia. Patient has been instructed to contact clinic if he has any concerns for his next appointment. We will give him 3 months worth medication and see him back in the clinic in 3 months. His Nirmal #[id number] has been reviewed and is appropriate. X-rays have been appropriate. The patient and I specifically discussed risk factors for COVID19. These risks include, but are not limited to age greater than 60, heart or lung disease, diabetes, immunosuppression, and travel. We also discussed NSAIDs may worsen COVID19 infection or symptoms. Patient should not use NSAIDs to treat COVID19 signs or symptoms. Patient was also informed that any type of corticosteroid of any form (oral or injection) will decrease the patient's immune system response and may increase the likelihood of COVID19 infection and symptoms[address] Oleary has reviewed this note and agrees with this plan of care. This note was dictated using voice recognition software and make contain errors or omissions. [facility] History I have reviewed the patient's past medical history: Yes *Have you ever received a pneumonia vaccine?: Yes *Have you received a flu vaccine this season?: Yes - *Social History *Occupational Status:: other *Travel in the last 8 weeks: None Family Hx:: Non-contributory
--- NOTE | 2020-05-08 10:30 | PC.NURSE ---
PT CALLED TO LET US KNOW THAT HIS INSURANCE NOW REQUIRES HE USE [id number] [place] FOR ALL OF HIS MEDICATIONS BEGINNING IN MAY OF 2020. I UPDATED HIS INFORMATION IN [employer].
== END ==
PROVIDERS: Visit Provider Clinical Nurse Specialist Family Health
DX: M51.16 Intervertebral disc disorders with radiculopathy, lumbar region (principal)
CPT/HCPCS: 99212

== ENCOUNTER → 2020-06-28 10:15 | Outpatient (POV) | payer MEDICARE, SELFPAY ==
[2020-06-28 11:28] VITALS: BP 152/78; PULSE 74; RESP 18; TEMP 36.8; O2SAT 99; BMI 26.6
--- NOTE | 2020-06-28 13:01 | P.CONS_ITS ---
[facility] Pain Management SOAP Note Subjective:: Patient is pleasant 74-year-old white male who presents today for medication refills. Patient currently is being treated for pain secondary to degenerative disc disease lumbar spine lumbar radiculopathy. Patient is currently on oxycodone 10 mg 1 tab p.o. 5 times a day and Ambien 10 mg 1 p.o. at bedtime for insomnia. He denies side effects to this medication. Damaris #[id number] reviewed and appropriate. His current morphine equivalent is 75. Patient has done well on these medications and is currently maintaining. He rates his pain today 7 out of 10 which is slightly higher than his baseline. ROS General: no recent weight change, no fever, no sleep disturbances Respiratory: no cough, no shortness of air, no recurring pulmonary infections Cardiovascular/Peripheral Vascular: No chest pain, No palpitations, no edema, no shortness of breath. Gastrointestinal: no new onset incontinence, normal bowel movements reported Genitourinary: no new onset incontinence Musculoskeletal: Back pain, leg pain Psychiatric: normal mood/ affect Neurological: [denies new onset weakness in extremities], [denies new onset balance issues] Objective:: Physical Exam General: Alert and oriented x3, no acute distress, pleasant and cooperative, [on room air] Lungs: Resps E/U, Symmetrical chest expansion, Eyes: PERRL Musculoskeletal: Flexion and extension of lumbar spine somewhat guarded secondary to pain, deep tendon reflexes normal, strength in upper and lower extremities [5/5], [abnormal gait noted] Neurological: speech clear, laborer stores equal, no gross sensory deficits Assessment:: Degenerative disc disease lumbar spine lumbar radiculopathy, back pain Plan:: We will continue his oxycodone 10 mg 1 tab p.o. 5 times a day and his Ambien 10 mg 1 tab p.o. at bedtime. I'll follow-up with him in 3 months reassess his symptoms at that time he has been instructed to call the office if he has any issues prior to his next appointment. Dr. Oleary has reviewed this note and agrees with this plan of care. This note was dictated using voice recognition software and may contain errors or omissions Patient has been prescribed a controlled substance after being counseled on the medication, medication safety, and possible side effects. DAMARIS report has been obtained and reviewed prior to prescription and found to be appropriate. Opioid contract was reviewed and signed by the patient, and that they have agreed to all of the terms set forth by our compliance program. [facility] History I have reviewed the patient's past medical history: Yes *Have you ever received a pneumonia vaccine?: Yes *Have you received a flu vaccine this season?: Yes - *Social History *Occupational Status:: other *Travel in the last 8 weeks: None Family Hx:: Non-contributory
== END ==
PROVIDERS: Visit Provider Clinical Nurse Specialist Family Health
DX: M51.16 Intervertebral disc disorders with radiculopathy, lumbar region (principal)
CPT/HCPCS: 99212; G0463

== ENCOUNTER → 2020-09-27 10:04 | Outpatient (POV) | payer MEDICARE, SELFPAY ==
[2020-09-27 10:05] VITALS: BP 141/68; PULSE 65; RESP 18; O2SAT 98; BMI 26.6
--- NOTE | 2020-09-27 12:53 | HMH.PAINSOAP ---
[facility] Pain Management SOAP Note Subjective:: Patient is a 74-year-old white male who presents today for medication refills. Patient currently being treated for pain secondary to degenerative disc disease lumbar spine lumbar radiculopathy, patient currently on oxycodone 10 mg 1 tab p.o. 5 times a day and Ambien 10 mg 1 p.o. at bedtime for insomnia. Patient denies any side effects from his medication. Damaris #[id number] reviewed and appropriate. Drug screens of been appropriate. He rates his pain today 6 out of 10. ROS General: no recent weight change, no fever, no sleep disturbances Respiratory: no cough, no shortness of air, no recurring pulmonary infections Cardiovascular/Peripheral Vascular: No chest pain, No palpitations, no edema, no shortness of breath. Gastrointestinal: no new onset incontinence, normal bowel movements reported Genitourinary: no new onset incontinence Musculoskeletal: Back pain, leg pain Psychiatric: normal mood/ affect Neurological: [denies new onset weakness in extremities], [denies new onset balance issues] Objective:: Physical Exam General: Alert and oriented x3, no acute distress, pleasant and cooperative, [on room air] Lungs: Resps E/U, Symmetrical chest expansion, Eyes: PERRL Musculoskeletal: Flexion and extension of lumbar spine somewhat guarded secondary to pain, deep tendon reflexes normal, strength in upper and lower extremities [5/5], [abnormal gait noted] Neurological: speech clear, pool finisher equal, no gross sensory deficits Assessment:: Degenerative disc disease lumbar spine lumbar radiculopathy, back pain Plan:: We will continue his oxycodone 10 mg 1 p.o. 5 times a day and Ambien 10 mg [address] Tejeda will prescribe this for the patient he can sweet pickle maker when due. We will see him back in 6 weeks and reassess his symptoms at that time he has been instructed to call the office if he has any issues prior to his next appointment. Patient has been prescribed a controlled substance after being counseled on the medication, medication safety, and possible side effects. DAMARIS report has been obtained and reviewed prior to prescription and found to be appropriate. Opioid contract was reviewed and signed by the patient, and that they have agreed to all of the terms set forth by our compliance program. [facility] History I have reviewed the patient's past medical history: Yes *Have you ever received a pneumonia vaccine?: Yes *Have you received a flu vaccine this season?: Yes - *Social History Smoking Status: Unknown if ever smoked Alcohol Intake: never *Occupational Status:: other *Travel in the last 8 weeks: None Family Hx:: Non-contributory
== END ==
PROVIDERS: Visit Provider Clinical Nurse Specialist Family Health
DX: M51.16 Intervertebral disc disorders with radiculopathy, lumbar region (principal)
CPT/HCPCS: 99212; G0463

== ENCOUNTER → 2020-11-08 09:50 | Outpatient (POV) | payer MEDICARE, SELFPAY ==
[2020-11-08 10:23] VITALS: BP 138/74; PULSE 89; RESP 20; O2SAT 96; BMI 26.4
--- NOTE | 2020-11-08 12:56 | HMH.PAINSOAP ---
[facility] Pain Management SOAP Note Subjective:: Patient is a 75-year-old white male who presents today for medication refills and for follow-up. He is being treated for degenerative disc disease lumbar spine with lumbar radiculopathy symptoms. He is currently on oxycodone 10 mg 1 tablet p.o. 5 times daily and Ambien 10 mg 1 tablet p.o. at bedtime for insomnia. He rates his pain a 6 out of 10 today. Patient's Nirmal [id number] has been reviewed and is appropriate. Directions have been appropriate. His morphine equivalent is 75. Patient I discussed today that he will be following up with us monthly to get his oral medications. Patient is not happy with this due to his report to have to travel too far. Patient is also complaining that he did not receive his Ambien last month. He says that it was not called in on time. Patient has been advised that I was not in the clinic at that time, however, after further discussion with Dr. Serrano, we will not be prescribing Ambien for the patient. This is medication for insomnia and will need to be provided to him by his primary care provider. Patient says that he is unsure if he will be able to come to the clinic monthly. He has been advised that due to our policy change he will need to report to the clinic monthly to receive his medications. Review of Systems General: No recent weight changes, no fever, no sleep disturbances Respiratory: No cough, no shortness of air, no recurring pulmonary infections Cardiovascular/peripheral vascular: No chest pain, no palpitations, no edema, no shortness of breath Gastrointestinal: No new onset incontinence, normal bowel movements reported Genitourinary: No new onset incontinence Musculoskeletal: low back pain Psychiatric: Normal mood/affect Neurological: [Denies weakness in extremities], [denies balance issues] Objective:: Physical exam General: Alert and oriented x3, no acute distress, pleasant and cooperative, [on room air] Lungs: Respirations even and unlabored, symmetrical chest expansion Eyes: PERRL Musculoskeletal: Flexion and extension of lumbar spine somewhat guarded secondary to pain, deep tendon reflexes normal, strength in upper and lower extremities [5/5], [abnormal gait noted] Neurological: Speech clear, manufacturing weaver equal, no gross sensory deficit Assessment:: Degenerative disc disease lumbar spine with lumbar radiculopathy symptoms Plan:: We will refill the patient's oxycodone 10 mg 1 tablet p.o. 5 times daily. We will not be refilling the Ambien. I have discussed this with the patient. He has been instructed to contact his primary care provider if he wishes to continue the medication. Have also advised him that he is at a high risk for oversedation taking Ambien with oxycodone. Patient is not happy with the change in policy that he will be seen in the clinic monthly, however, he understands this is changes that will be taken place in the clinic and will need to be seen monthly in order to get his prescriptions. He can contact the clinic in the future if he has any concerns. Risks and benefits of the medication have been explained in detail to the patient. The patient has been advised to consult with his/her primary care provider and pharmacist regarding drug-drug interaction of medications currently prescribed. [facility] History I have reviewed the patient's past medical history: Yes *Have you ever received a pneumonia vaccine?: Yes *Have you received a flu vaccine this season?: Yes - *Social History Smoking Status: Unknown if ever smoked Alcohol Intake: never *Occupational Status:: retired *Travel in the last 8 weeks: None Family Hx:: Non-contributory
== END ==
PROVIDERS: Visit Provider Clinical Nurse Specialist Family Health
DX: M51.16 Intervertebral disc disorders with radiculopathy, lumbar region (principal)
CPT/HCPCS: 99212; G0463

== ENCOUNTER → 2020-11-29 09:58 | Outpatient (POV) | payer MEDICARE, SELFPAY ==
[2020-11-29 10:21] VITALS: BP 142/80; PULSE 83; RESP 18; O2SAT 99; BMI 26.2
--- NOTE | 2020-11-29 10:32 | HMH.PAINSOAP ---
[facility] Pain Management SOAP Note Subjective:: Patient is a 75-year-old white male who presents today for medication refills and for follow-up. He is being treated for degenerative disc disease lumbar spine with lumbar radiculopathy symptoms. Patient is currently on oxycodone 10 mg 1 tablet p.o. 5 times daily. At his last visit we did have a conversation that we would not be able to continue his Ambien. He does understand this. He was given a prescription for the medication at his last visit, however, after further discussion he understands it will no longer be prescribed by our clinic and should be prescribed by his primary care provider's office. His drug screen and Damaris report are appropriate. He rates his pain a 5 out of 10 today. He reports he recently got his last vaccination for Covid. He has requested to change pharmacies due to his previous pharmacy giving him too many medications or not enough medications. Review of Systems General: No recent weight changes, no fever, no sleep disturbances Respiratory: No cough, no shortness of air, no recurring pulmonary infections Cardiovascular/peripheral vascular: No chest pain, no palpitations, no edema, no shortness of breath Gastrointestinal: No new onset incontinence, normal bowel movements reported Genitourinary: No new onset incontinence Musculoskeletal: Chronic low back pain Psychiatric: Normal mood/affect Neurological: [Denies weakness in extremities], [denies balance issues] Objective:: Physical exam General: Alert and oriented x3, no acute distress, pleasant and cooperative, [on room air] Lungs: Respirations even and unlabored, symmetrical chest expansion Eyes: PERRL Musculoskeletal: Flexion and extension of [] lumbar spine somewhat guarded secondary to pain, deep tendon reflexes normal, strength in upper and lower extremities [5/5], [abnormal gait noted] Neurological: Speech clear, managing consultant clinical professor equal, no gross sensory deficit Assessment:: Degenerative disc disease lumbar spine with lumbar radiculopathy symptoms, chronic back pain Plan:: We will refill the patient's oxycodone 10 mg 1 tablet p.o. 5 times daily. He will get a month medication be seen in the clinic in a month for reevaluation of symptoms. Risks and benefits of the medication have been explained in detail to the patient. The patient has been advised to consult with his/her primary care provider and pharmacist regarding drug-drug interaction of medications currently prescribed. Patient has been prescribed a controlled substance after being counseled on the medication, medication safety, and possible side effects. DAMARIS report has been obtained and reviewed prior to prescription and found to be appropriate. Opioid contract was reviewed and signed by the patient, and that they have agreed to all of the terms set forth by our compliance program. Patient has been instructed to contact the clinic with any concerns before the next appointment. Dr. Oleary has reviewed this note and agrees with this plan of care. This note was dictated using voice recognition software and make contain errors or omissions. [facility] History I have reviewed the patient's past medical history: Yes *Have you ever received a pneumonia vaccine?: Yes *Have you received a flu vaccine this season?: Yes - *Social History Smoking Status: Unknown if ever smoked Alcohol Intake: never *Occupational Status:: unemployed *Travel in the last 8 weeks: None Family Hx:: Non-contributory
== END ==
PROVIDERS: Visit Provider Clinical Nurse Specialist Family Health
DX: M51.16 Intervertebral disc disorders with radiculopathy, lumbar region (principal); M54.9 Dorsalgia, unspecified; G89.29 Other chronic pain
CPT/HCPCS: 99212; G0463

== ENCOUNTER → 2020-12-27 10:00 | Outpatient (POV) | payer MEDICARE, SELFPAY ==
[2020-12-27 10:13] VITALS: BP 131/62; PULSE 65; RESP 18; O2SAT 100; BMI 25.1
--- NOTE | 2020-12-27 10:31 | P.CONS_ITS ---
[facility] Pain Management SOAP Note Subjective:: Patient is a pleasant 75-year-old white male who presents today for follow-up and refills. She is currently being treated for degenerative disc disease of the lumbar spine with lumbar radiculopathy. Patient is currently managed with oxycodone 10 mg 1 tablet p.o. 5 times a day. He denies any side effects from this medication. He is rating his pain today a 6 out of 10. He denies any changes to the location or type of pain he experiences. He is also requesting refills for his Ambien today. Per the last note the patient will no longer be prescribed Ambien from our office. We informed the patient that this prescription will no longer be filled by our clinic, due to increased risk for oversedation. His Nirmal number is [id number] he has active morphine equivalent of 75. 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 We will need to see the patient back in 1 month for follow-up and medication refill. He is welcome to contact the clinic prior to his next appointment date if he has any questions or concerns. Dr. Oleary has reviewed this note and agrees with this plan of care. This note was dictated using voice recognition software and make contain errors or omissions. [facility] History *Have you ever received a pneumonia vaccine?: Yes *Have you received a flu vaccine this season?: No - *Social History Smoking Status: Unknown if ever smoked Alcohol Intake: never *Occupational Status:: unemployed *Travel in the last 8 weeks: None Family Hx:: Non-contributory
== END ==
PROVIDERS: Visit Provider Family Medicine
DX: M51.16 Intervertebral disc disorders with radiculopathy, lumbar region (principal)
CPT/HCPCS: 99212; G0463

== ENCOUNTER → 2021-01-21 09:25 | Outpatient (POV) | payer MEDICARE, SELFPAY ==
[2021-01-21 10:00] VITALS: BP 138/63; PULSE 68; RESP 18; O2SAT 98; BMI 26.6
--- NOTE | 2021-01-21 10:39 | HMH.PAINSOAP ---
[facility] Pain Management SOAP Note Subjective:: Patient is a 75-year-old white male who presents today for follow-up and for medication refills. He is being treated for degenerative disc disease lumbar spine with lumbar radiculopathy symptoms. Patient says that he is having a gout flareup at this time. He was given medication, however, did not get much relief. He is now on steroids which is also not helping with his pain. His primary care provider is managing this at this time. He reports that he has tried physical therapy for greater than 3 rounds in [place] with no significant relief. He also says he has had injections in the past with no significant relief. We did discuss that he may need to undergo interventional therapies along with his oral medication regimen. Patient is not happy about this. He was advised the long-term benefits of injective therapy. He is rating his pain a 5 out of 10 today. Patient's Damaris #[id number] has been reviewed and is appropriate. Morphine equivalent is 75. He denies any side effects of medication. He is managed with oxycodone 10 mg 1 tablet p.o. 5 times daily. Review of Systems General: No recent weight changes, no fever, no sleep disturbances Respiratory: No cough, no shortness of air, no recurring pulmonary infections Cardiovascular/peripheral vascular: No chest pain, no palpitations, no edema, no shortness of breath Gastrointestinal: No new onset incontinence, normal bowel movements reported Genitourinary: No new onset incontinence Musculoskeletal: Low back pain with radiation into lower extremity, foot pain pain Psychiatric: [Normal mood/affect] Neurological: [Denies weakness in extremities], [denies balance issues] Objective:: Physical exam General: Alert and oriented x3, no acute distress, pleasant and cooperative, [on room air] Lungs: Respirations even and unlabored, symmetrical chest expansion Eyes: PERRL Musculoskeletal: Flexion and extension of lumbar [spine] somewhat guarded secondary to pain, strength in upper and lower extremities [5/5], [antalgic gait noted] Neurological: Speech clear, [manager call equal], no gross sensory deficit Assessment:: Degenerative disc disease lumbar spine with lumbar radiculopathy symptoms Plan:: We will refill the patient's oxycodone 10 mg 1 tablet p.o. 5 times daily. Patient I did discuss injective therapy with interventional therapy such as injections or physical therapy. Patient has deferred on both. Patient says if he has to undergo injective therapy, he will find an alternate clinic. We will see him back in a month for reevaluation of symptoms. His gout is being managed by his primary care provider. Risks and benefits of the medication have been explained in detail to the patient. The patient has been advised to consult with his/her primary care provider and pharmacist regarding drug-drug interaction of medications currently prescribed. Patient has been prescribed a controlled substance after being counseled on the medication, medication safety, and possible side effects. DAMRAIS report has been obtained and reviewed prior to prescription and found to be appropriate. Opioid contract was reviewed and signed by the patient, and that they have agreed to all of the terms set forth by our compliance program. Patient has been instructed to contact the clinic with any concerns before the next appointment. Dr. Oleary has reviewed this note and agrees with this plan of care. This note was dictated using voice recognition software and make contain errors or omissions. [facility] History I have reviewed the patient's past medical history: Yes *Have you ever received a pneumonia vaccine?: Yes *Have you received a flu vaccine this season?: Yes - *Social History Smoking Status: Unknown if ever smoked Alcohol Intake: never *Occupational Status:: unemployed *Travel in the last 8 weeks: None Family Hx:: Non-contributory
== END ==
PROVIDERS: Visit Provider Clinical Nurse Specialist Family Health
DX: M51.16 Intervertebral disc disorders with radiculopathy, lumbar region (principal)
CPT/HCPCS: 99212; G0463

== ENCOUNTER → 2021-02-11 10:44 | Outpatient (POV) | payer MEDICARE, SELFPAY ==
[2021-02-11 11:08] VITALS: BP 127/68; PULSE 77; RESP 18; O2SAT 99
--- NOTE | 2021-02-11 11:27 | HMH.PAINSOAP ---
[facility] Pain Management SOAP Note Subjective:: Patient is a 75-year-old white male who presents today for follow-up for medication refills. He has been treated for degenerative disc disease lumbar spine with lumbar radiculopathy symptoms. Patient is managed with oral medications of oxycodone 10 mg 1 tablet p.o. 5 times daily. He denies any side effects to the medicine. He does rate his pain a 5 out of 10. He does get about 60% relief with the medicine. Patient says he recently twisted wrong and is now having significant pain to his bilateral low back area that is different in nature with his chronic pain. We discussed adding compounding cream to his medication regimen for his acute pain. He is in agreement. Review of Systems General: No recent weight changes, no fever, no sleep disturbances Respiratory: No cough, no shortness of air, no recurring pulmonary infections Cardiovascular/peripheral vascular: No chest pain, no palpitations, no edema, no shortness of breath Gastrointestinal: No new onset incontinence, normal bowel movements reported Genitourinary: No new onset incontinence Musculoskeletal: Low back pain with radiation into bilateral lower extremities Psychiatric: [Normal mood/affect] Neurological: [Denies weakness in extremities], [denies balance issues] Objective:: Physical exam General: Alert and oriented x3, no acute distress, pleasant and cooperative, [on room air] Lungs: Respirations even and unlabored, symmetrical chest expansion Eyes: PERRL Musculoskeletal: Flexion and extension of lumbar [spine] somewhat guarded secondary to pain, strength in upper and lower extremities [5/5], [antalgic gait noted] Neurological: Speech clear, [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 5 times daily. [facility] #[id number] has been reviewed and is appropriate. Drug screen is appropriate. Morphine equivalent is 75. The patient has been order Narcan for risk of oversedation. We will also order the patient compounding cream to apply topically to his lumbar spine. Risks and benefits of the medication have been explained in detail to the patient. The patient has been advised to consult with his/her primary care provider and pharmacist regarding drug-drug interaction of medications currently prescribed. Patient has been prescribed a controlled substance after being counseled on the medication, medication safety, and possible side effects. DAMARIS report has been obtained and reviewed prior to prescription and found to be appropriate. Opioid contract was reviewed and signed by the patient, and that they have agreed to all of the terms set forth by our compliance program. Patient has been instructed to contact the clinic with any concerns before the next appointment. Dr. Oleary has reviewed this note and agrees with this plan of care. This note was dictated using voice recognition software and make contain errors or omissions. [facility] History I have reviewed the patient's past medical history: Yes *Have you ever received a pneumonia vaccine?: Yes *Have you received a flu vaccine this season?: No - *Social History Smoking Status: Unknown if ever smoked Alcohol Intake: never *Occupational Status:: unemployed *Travel in the last 8 weeks: None Family Hx:: Non-contributory
[2021-02-11 12:48] LABS: Amphetamine/Metha Screen,Urine Negative ng/ml (<1000); Benzodiazepines Screen,Urine Negative ng/ml (<200)
[2021-02-11 12:49] LABS: Barbiturates Screen,Urine Negative ng/ml (<200)
[2021-02-11 12:50] LABS: Cannabinoid Screen,Urine Negative ng/ml (<50); Cocaine Screen,Urine Negative ng/ml (<300)
[2021-02-11 12:51] LABS: Methadone Screen,Urine Negative ng/ml (<300); Opiate Screen,Urine Negative ng/ml (<300)
[2021-02-11 12:52] LABS: Phencyclidine Screen,Urine Negative ng/ml (<25)
== END ==
PROVIDERS: Visit Provider Clinical Nurse Specialist Family Health
DX: M51.16 Intervertebral disc disorders with radiculopathy, lumbar region (principal); Z79.899 Other long term (current) drug therapy
CPT/HCPCS: 80305; 99212; G0463

== ENCOUNTER → 2021-03-11 10:53 | Outpatient (POV) | payer MEDICARE, SELFPAY ==
--- NOTE | 2021-03-11 12:05 | HMH.PAINSOAP ---
[facility] Pain Management SOAP Note Subjective:: Patient is a 75-year-old white male who presents today for medication refills. Patient does have chronic low back pain with radiation into his bilateral lower extremities. He is managed for degenerative disc disease lumbar spine with lumbar radiculopathy symptoms. He does get oxycodone 10 mg 1 tablet p.o. 5 times daily. Patient does travel more than an hour and a half, nearly 2 hours to get to the clinic for refills. He gets approximately 50 to 60% relief with his medicines. He does rate his pain a 4 out of 10 today. He denies any side effects to the medicine. Patient [facility] #[id number] has been reviewed and is appropriate. Morphine equivalent is 75. Drug screen is appropriate. Review of Systems General: No recent weight changes, no fever, no sleep disturbances Respiratory: No cough, no shortness of air, no recurring pulmonary infections Cardiovascular/peripheral vascular: No chest pain, no palpitations, no edema, no shortness of breath Gastrointestinal: No new onset incontinence, normal bowel movements reported Genitourinary: No new onset incontinence Musculoskeletal: Low back pain with radiation into bilateral lower extremities Psychiatric: [Normal mood/affect] Neurological: [Denies weakness in extremities], [denies balance issues] Objective:: Physical exam General: Alert and oriented x3, no acute distress, pleasant and cooperative Lungs: Respirations even and unlabored, symmetrical chest expansion Eyes: PERRL Musculoskeletal: Flexion and extension of lumbar [spine] somewhat guarded secondary to pain, [antalgic gait noted] Neurological: Speech clear, no gross sensory deficit Assessment:: Degenerative disc disease lumbar spine with lumbar radiculopathy symptoms Plan:: We will refill the patient's oxycodone 10 mg 1 tablet p.o. 5 times daily. Patient will get a month medication and we will plan for a telehealth visit next visit, as the patient is concerned with Covid exposure. We will follow-up with him the following month in the clinic. Risks and benefits of the medication have been explained in detail to the patient. The patient does understand the risk of dependence on the medication when given over a prolonged period. Patient has been advised of risks of oversedation with the prescribed medication. Narcan has been offered to the paitent in the event of oversedation. Patient has been advised that a family member should also be educated regarding administration of Narcan. The patient has been advised to consult with his/her primary care provider and pharmacist regarding drug-drug interaction of medications currently prescribed. Patient has been prescribed a controlled substance after being counseled on the medication, medication safety, and possible side effects. DAMARIS report has been obtained and reviewed prior to prescription and found to be appropriate. Opioid contract was reviewed and signed by the patient, and that they have agreed to all of the terms set forth by our compliance program. Patient has been instructed to contact the clinic with any concerns before the next appointment. Dr. Oleary has reviewed this note and agrees with this plan of care. This note was dictated using voice recognition software and make contain errors or omissions. [facility] History I have reviewed the patient's past medical history: Yes *Have you ever received a pneumonia vaccine?: Yes *Have you received a flu vaccine this season?: No - *Social History Smoking Status: Unknown if ever smoked Alcohol Intake: never *Occupational Status:: unemployed *Travel in the last 8 weeks: None Family Hx:: Non-contributory
== END ==
PROVIDERS: Visit Provider Clinical Nurse Specialist Family Health
DX: M51.16 Intervertebral disc disorders with radiculopathy, lumbar region (principal)
CPT/HCPCS: 99212; G0463

== ENCOUNTER → 2021-04-11 10:02 | Outpatient (POV) | payer MEDICARE, SELFPAY ==
--- NOTE | 2021-04-11 11:18 | HMH.PAINSOAP ---
[facility] Pain Management SOAP Note Subjective:: Patient is a 75-year-old white male who is following up via telehealth for medication refills. Patient does have chronic low back pain. He says the pain does radiate into lower extremities but is well managed with his oral medication. Oxycodone 10 mg 1 tablet p.o. 5 times daily. He has not had any side effects to the medicine. He does undergo physical therapy as needed for pain relief. He does continue with home stretching as well. Patient's Damaris [id number] has been reviewed and appropriate. Morphine equivalent.. Review of Systems General: No recent weight changes, no fever, no sleep disturbances Respiratory: No cough, no shortness of air, no recurring pulmonary infections Cardiovascular/peripheral vascular: No chest pain, no palpitations, no edema, no shortness of breath Gastrointestinal: No new onset incontinence, normal bowel movements reported Genitourinary: No new onset incontinence Musculoskeletal: Low back pain with radiation into bilateral lower extremities Psychiatric: [Normal mood/affect] Neurological: [Denies weakness in extremities], [denies balance issues] Objective:: Physical exam General: Alert and oriented x3, no acute distress, pleasant and cooperative Assessment:: Degenerative disc lumbar radiculopathy Plan:: We will continue patient on oxycodone 10mg 1 tablet p.o. 5 times daily. We will give him a month medication and follow-up in the clinic in 1 month . Risks and benefits of the medication have been explained in detail to the patient. The patient does understand the risk of dependence on the medication when given over a prolonged period. Patient has been advised of risks of oversedation with the prescribed medication. Narcan has been offered to the paitent in the event of oversedation. Patient has been advised that a family member should also be educated regarding administration of Narcan. The patient has been advised to consult with his/her primary care provider and pharmacist regarding drug-drug interaction of medications currently prescribed. Patient has been prescribed a controlled substance after being counseled on the medication, medication safety, and possible side effects. DAMARIS report has been obtained and reviewed prior to prescription and found to be appropriate. Opioid contract was reviewed and signed by the patient, and that they have agreed to all of the terms set forth by our compliance program. Patient has been instructed to contact the clinic with any concerns before the next appointment. Dr. Oleary has reviewed this note and agrees with this plan of care. This note was dictated using voice recognition software and make contain errors or omissions. [facility] History I have reviewed the patient's past medical history: Yes *Have you ever received a pneumonia vaccine?: Yes *Have you received a flu vaccine this season?: No - *Social History Smoking Status: Unknown if ever smoked Alcohol Intake: never *Occupational Status:: unemployed *Travel in the last 8 weeks: None Family Hx:: Non-contributory
== END ==
PROVIDERS: Visit Provider Clinical Nurse Specialist Family Health
DX: M51.16 Intervertebral disc disorders with radiculopathy, lumbar region (principal)
CPT/HCPCS: 99212; G0463

== ENCOUNTER → 2021-04-17 10:02 | Outpatient (POV) | payer MEDICARE, SELFPAY ==
[2021-04-17 11:30] VITALS: BP 137/64; PULSE 85; RESP 20; O2SAT 97; BMI 25.1
--- NOTE | 2021-04-17 15:31 | HMH.PAINSOAP ---
[facility] Pain Management SOAP Note Subjective:: Patient is a pleasant 75-year-old white male who we are treating for low back pain with lumbar radiculopathy symptoms. He did have a pill count which was off by 13 pills. He was 13 pills short. Also his urine drug screen tested negative for oxycodone. This was sent off for confirmation. I did have a long discussion with this patient about his oxycodone intake. He only takes 4-day. He does keep the fifth one as needed. Nirmal is appropriate [facility] [id number]. Objective:: Alert and oriented x3 no acute distress. Patient does have an antalgic gait. Motor strength of the lower extremities is 5/5. There is no gross sensory deficit. Assessment:: Degenerative disc disease of lumbar spine with lumbar radiculopathy symptoms Plan:: We will reduce his oxycodone to 10 mg 1 tablet 4 times a day. We will follow-up on his urine drug screen confirmation. I will see him back in 1 month. At that time we will determine depending on his urine drug screen confirmation as to his treatment plan. [facility] History *Have you ever received a pneumonia vaccine?: No *Have you received a flu vaccine this season?: Yes - *Social History Smoking Status: Unknown if ever smoked Alcohol Intake: never *Occupational Status:: other *Travel in the last 8 weeks: None Family Hx:: Non-contributory
== END ==
PROVIDERS: Visit Provider Anesthesiology
DX: M51.16 Intervertebral disc disorders with radiculopathy, lumbar region (principal)
CPT/HCPCS: 99212; G0463

== ENCOUNTER → 2021-05-09 10:51 | Outpatient (POV) | payer MEDICARE, SELFPAY ==
[2021-05-09 11:35] VITALS: BP 133/95; PULSE 82; RESP 18; O2SAT 99; BMI 25.1
--- NOTE | 2021-05-09 12:33 | HMH.PAINSOAP ---
[facility] Pain Management SOAP Note Subjective:: Patient is a 75-year-old white male who presents today for follow-up and for medication refills. At last visit he did see Dr. Oleary. The patient was short with medication at his last visit. He was also negative for oxycodone with his drug screen. Dr. Oleary did order a urine drug screen and confirmation. Unfortunately the lab did not send the urine for confirmation. Dr. Oleary did decrease the patient with the oxycodone dosing. He is getting oxycodone 10 mg 1 tablet p.o. 4 times daily. He denies any side effects to the medication. He does rate his pain a 5 out of 10. [facility] #[id number] has been and is appropriate. Drug screen is appropriate. Morphine equivalent is 60. Review of Systems General: No recent weight changes, no fever, no sleep disturbances Respiratory: No cough, no shortness of air, no recurring pulmonary infections Cardiovascular/peripheral vascular: No chest pain, no palpitations, no edema, no shortness of breath Gastrointestinal: No new onset incontinence, normal bowel movements reported Genitourinary: No new onset incontinence Musculoskeletal: Low back pain with radiation into bilateral lower extremities Psychiatric: [Normal mood/affect] Neurological: [Denies weakness in extremities], [denies balance issues] Objective:: Physical exam General: Alert and oriented x3, no acute distress, pleasant and cooperative Lungs: Respirations even and unlabored, symmetrical chest expansion Eyes: PERRL Musculoskeletal: Flexion and extension of lumbar [spine] somewhat guarded secondary to pain, [antalgic gait noted] Neurological: Speech clear, no gross sensory deficit Assessment:: Degenerative disc disease lumbar spine with lumbar radiculopathy symptoms Plan:: We will send the patient for a drug screen with confirmation today. We will continue him on the dose prescribed per Dr. Oleary until we do receive confirmation of his drug screen today. He will continue oxycodone 10 mg 1 tablet p.o. 4 times daily for 1 month. At next visit if he does not have the medication noted to the drug screen or if there is any concern for noncompliance, we will continue to wean the patient with his dosing. He does understand this. Risks and benefits of the medication have been explained in detail to the patient. The patient does understand the risk of dependence on the medication when given over a prolonged period. Patient has been advised of risks of oversedation with the prescribed medication. Narcan has been offered to the paitent in the event of oversedation. Patient has been advised that a family member should also be educated regarding administration of Narcan. The patient has been advised to consult with his/her primary care provider and pharmacist regarding drug-drug interaction of medications currently prescribed. Patient has been prescribed a controlled substance after being counseled on the medication, medication safety, and possible side effects. DAMARIS report has been obtained and reviewed prior to prescription and found to be appropriate. Opioid contract was reviewed and signed by the patient, and that they have agreed to all of the terms set forth by our compliance program. Patient has been instructed to contact the clinic with any concerns before the next appointment. Dr. Oleary has reviewed this note and agrees with this plan of care. This note was dictated using voice recognition software and make contain errors or omissions. [facility] History I have reviewed the patient's past medical history: Yes *Have you ever received a pneumonia vaccine?: No *Have you received a flu vaccine this season?: Yes - *Social History Smoking Status: Unknown if ever smoked Alcohol Intake: never *Occupational Status:: unemployed *Travel in the last 8 weeks: None Family Hx:: Non-contributory
[2021-05-09 13:02] LABS: Barbiturates Screen,Urine Negative ng/ml (<200); Benzodiazepines Screen,Urine Negative ng/ml (<200)
[2021-05-09 13:03] LABS: Amphetamine/Metha Screen,Urine Negative ng/ml (<1000); Methadone Screen,Urine Negative ng/ml (<300)
[2021-05-09 13:04] LABS: Cannabinoid Screen,Urine Negative ng/ml (<50)
[2021-05-09 13:05] LABS: Cocaine Screen,Urine Negative ng/ml (<300); Opiate Screen,Urine Negative ng/ml (<300)
[2021-05-09 13:06] LABS: Phencyclidine Screen,Urine Negative ng/ml (<25)
== END ==
PROVIDERS: Visit Provider Clinical Nurse Specialist Family Health
DX: M51.16 Intervertebral disc disorders with radiculopathy, lumbar region (principal); Z79.891 Long term (current) use of opiate analgesic
CPT/HCPCS: 80305; 99212; G0463

== ENCOUNTER → 2021-06-20 13:59 | Outpatient (POV) | payer MEDICARE, SELFPAY ==
[2021-06-20 14:15] VITALS: BP 146/61; PULSE 80; RESP 18; O2SAT 97; BMI 25.7
--- NOTE | 2021-06-20 14:31 | HMH.PAINSOAP ---
[facility] Pain Management SOAP Note Subjective:: Patient is a 75-year-old black male who presents today for follow-up and medication refills. The patient is out of medication. He has seen Dr. Oleary in the past due to an inappropriate drug screen. The last drug screen did not have enough urine to send for confirmation. We will obtain a drug screen once again today. He says he is scheduled to undergo a hernia repair on July 26 and following the hernia repair is likely going to need a shoulder repair. He has asked if he can take further medication with his current medication. He is on oxycodone 10 mg 1 tablet p.o. 4 times daily. Patient has been advised that we can write a letter to his surgeon who will need to contact our clinic before prescribing medications as to prevent any type of oversedation for the patient. Today, he rates his pain a 5 out of 10. Review of Systems General: No recent weight changes, no fever, no sleep disturbances Respiratory: No cough, no shortness of air, no recurring pulmonary infections Cardiovascular/peripheral vascular: No chest pain, no palpitations, no edema, no shortness of breath Gastrointestinal: No new onset incontinence, normal bowel movements reported Genitourinary: No new onset incontinence Musculoskeletal: Chronic low back pain, right shoulder pain Psychiatric: [Normal mood/affect] Neurological: [Denies weakness in extremities], [denies balance issues] Objective:: Physical exam General: Alert and oriented x3, no acute distress, pleasant and cooperative Lungs: Respirations even and unlabored, symmetrical chest expansion Eyes: PERRL Musculoskeletal: Flexion and extension of lumbar [spine] somewhat guarded secondary to pain, [antalgic gait noted] Neurological: Speech clear, no gross sensory deficit Assessment:: Degenerative disc disease lumbar spine with lumbar radiculopathy symptoms, right shoulder pain Plan:: We will send the patient for drug screen today and send for confirmation. We will also continue the patient's Felt 10 mg 1 tablet p.o. 4 times daily. He was given a letter to give to his surgeon in the event he requires further medication post surgery. The surgeon has been asked to contact our clinic before prescribing any further medication to prevent oversedation. Risks and benefits of the medication have been explained in detail to the patient. The patient does understand the risk of dependence on the medication when given over a prolonged period. Patient has been advised of risks of oversedation with the prescribed medication. Narcan has been offered to the paitent in the event of oversedation. Patient has been advised that a family member should also be educated regarding administration of Narcan. The patient has been advised to consult with his/her primary care provider and pharmacist regarding drug-drug interaction of medications currently prescribed. Patient has been prescribed a controlled substance after being counseled on the medication, medication safety, and possible side effects. [facility] report has been obtained and reviewed prior to prescription and found to be appropriate. Opioid contract was reviewed and signed by the patient, and that they have agreed to all of the terms set forth by our compliance program. Patient has been instructed to contact the clinic with any concerns before the next appointment. Dr. Oleary has reviewed this note and agrees with this plan of care. This note was dictated using voice recognition software and make contain errors or omissions. [facility] History I have reviewed the patient's past medical history: Yes *Have you ever received a pneumonia vaccine?: Yes *Have you received a flu vaccine this season?: Yes - *Social History Smoking Status: Unknown if ever smoked Alcohol Intake: never *Occupational Status:: unemployed *Travel in the last 8 weeks: None Family Hx:: Non-contributory
[2021-06-20 18:06] LABS: Barbiturates Screen,Urine Negative ng/ml (<200); Benzodiazepines Screen,Urine Negative ng/ml (<200)
[2021-06-20 18:07] LABS: Amphetamine/Metha Screen,Urine Negative ng/ml (<1000)
[2021-06-20 18:08] LABS: Cannabinoid Screen,Urine Negative ng/ml (<50); Cocaine Screen,Urine Negative ng/ml (<300)
[2021-06-20 18:09] LABS: Methadone Screen,Urine Negative ng/ml (<300)
[2021-06-20 18:10] LABS: Opiate Screen,Urine Negative ng/ml (<300); Phencyclidine Screen,Urine Negative ng/ml (<25)
[2021-07-09 12:38] LABS: Opiates Negative (Cutoff=100); Oxycodone (GC/MS) 1532 ng/mL (Cutoff=100)
== END ==
PROVIDERS: Visit Provider Clinical Nurse Specialist Family Health
DX: M51.16 Intervertebral disc disorders with radiculopathy, lumbar region (principal); M25.511 Pain in right shoulder; Z79.891 Long term (current) use of opiate analgesic
CPT/HCPCS: 80305; 80361; 80365; 99212; G0463; G0480

== ENCOUNTER → 2021-07-22 10:20 | Outpatient (POV) | payer MEDICARE, SELFPAY ==
--- NOTE | 2021-07-22 10:42 | HMH.PAINSOAP ---
[facility] Pain Management SOAP Note Subjective:: This patient is a very pleasant 75-year-old white male who presents today for follow-up and medication refills. Being treated for degenerative disease of lumbar spine lumbar radiculopathy. He is currently prescribed oxycodone 10 mg 4 times a day which he states is helping manage his chronic pain symptoms. He denies any adverse effects this medication. He rates his pain today as a 6 out of 10. He is requesting refills on his medication today as he states it allows him to maintain functionality and overall mobility. He is also scheduled to undergo hernia repair surgery next month and is requesting a telehealth appointment for his medication refills so that way he will have to come into clinic given his upcoming surgery. Objective:: General: Alert and oriented x3, no acute distress, pleasant and cooperative Lungs: Resps E/U, symmetric chest expansion Eyes: PERRL Musculoskeletal: limited flexion and extension of the lumbar spine secondary to pain. Deep tendon reflexes were normal in bilateral lower extremities. Motor exam was grossly intact in the bilateral lower extremities, antalgic gait noted. Neurological: Speech is clear, violin tutor equal, no gross sensory deficits Assessment:: Degenerative disc disease of lumbar spine with lumbar radiculopathy Plan:: Discussed with the patient that we will continue and refill oxycodone 10 mg 4 times a day #120 for a 1 month supply. We we will follow-up with this patient in 1 month and after verifying the details regarding his inguinal hernia repair surgery at [facility] in [facility] we can switch him over to a telehealth visit. [facility] [place] #[id number] and prior drug screens were reviewed and appropriate. [facility] History *Have you ever received a pneumonia vaccine?: Yes *Have you received a flu vaccine this season?: Yes - *Social History Smoking Status: Unknown if ever smoked Alcohol Intake: never *Occupational Status:: unemployed *Travel in the last 8 weeks: None Family Hx:: Non-contributory
[2021-07-22 10:55] VITALS: BP 148/74; PULSE 72; RESP 20; TEMP 37; O2SAT 96; BMI 25.8
== END ==
PROVIDERS: Visit Provider Anesthesiology Pain Medicine
DX: M51.16 Intervertebral disc disorders with radiculopathy, lumbar region (principal)
CPT/HCPCS: 99212; G0463

== ENCOUNTER → 2021-08-19 11:42 | Outpatient (POV) | payer MEDICARE, SELFPAY ==
[2021-08-19 12:03] VITALS: BP 128/68; PULSE 75; RESP 18; TEMP 36.8; O2SAT 100; BMI 25.4
--- NOTE | 2021-08-19 16:07 | HMH.PAINSOAP ---
[facility] Pain Management SOAP Note Subjective:: Patient is a pleasant 75-year-old male who is here for medication refill and follow-up. Patient is currently being treated for degenerative disc disease of the lumbar spine with lumbar radiculopathy symptoms, bilateral shoulder pain. Patient is being managed with oxycodone 10 mg 4 times a day. Patient denies any side effects from the medications. Patient denies any changes to the location and type of pain. Patient states that this is adequately helping manage their pain. Rates pain as 5 out of 10. [facility] number [id number] with an active morphine equivalent 60. Drug screens have been reviewed and appropriate. Patient has also been having worsening bilateral shoulder pain. Patient is being followed by Dr. Douglas in [place]. He does get intraarticular injections from him from time to time. He says that he might need shoulder replacement. Review of Systems: General: No recent weight changes, no fever, no sleep disturbances Respiratory: No cough, no shortness of air, no recurring pulmonary infections Cardiovascular/peripheral vascular: No chest pain, no palpitations, no edema, no shortness of breath Gastrointestinal: No new onset incontinence, normal bowel movements reported Genitourinary: No new onset incontinence Musculoskeletal: Low back pain, bilateral shoulder pain Psychiatric: [Normal mood/affect] Neurological: [Denies weakness in extremities], [denies balance issues] Objective:: Physical Exam: General: Alert and oriented x3, no acute distress, pleasant and cooperative, [on room air] Lungs: Respirations even and unlabored, symmetrical chest expansion Eyes: PERRL Musculoskeletal: Flexion and extension of lumbar [spine] somewhat guarded secondary to pain; limited range of motion of bilateral shoulder secondary to pain Neurological: Speech clear, no gross sensory deficit Assessment:: Degenerative disc disease of the lumbar spine with lumbar radiculopathy symptoms Bilateral shoulder pain Plan:: We will continue the patient's oxycodone 10 mg 4 times a day. We will provide the patient with 1 month of refills. We would like to see the patient back in 1 month for follow-up and reevaluation of chronic pain syndrome. Patient has been advised of risks of oversedation with the prescribed medication. Narcan has been offered to the patient in the event of oversedation. Patient has been advised that a family member should also be educated regarding administration of Narcan. Patient has been instructed to contact the clinic with any concerns before the next appointment. Dr. Oleary has reviewed this note and agrees with this plan of care. This note was dictated using voice recognition software and make contain errors or omissions. [facility] History *Have you ever received a pneumonia vaccine?: Yes *Have you received a flu vaccine this season?: Yes - *Social History Smoking Status: Unknown if ever smoked Alcohol Intake: never *Occupational Status:: retired *Travel in the last 8 weeks: None Family Hx:: Non-contributory
== END ==
PROVIDERS: Visit Provider Student in an Organized Health Care Education/Training Program
DX: M51.16 Intervertebral disc disorders with radiculopathy, lumbar region (principal); M25.511 Pain in right shoulder; M25.512 Pain in left shoulder
CPT/HCPCS: 99212; G0463

== ENCOUNTER → 2021-09-19 10:11 | Outpatient (POV) | payer MEDICARE, SELFPAY ==
[2021-09-19 10:33] VITALS: BP 138/63; PULSE 71; RESP 18; TEMP 36.7; O2SAT 98; BMI 25.8
--- NOTE | 2021-09-19 12:40 | P.CONS_ITS ---
[facility] Pain Management SOAP Note Subjective:: Patient is a pleasant 75-year-old male who is here for medication refill and follow-up. Patient is currently being treated for degenerative disc disease of lumbar spine with lumbar radiculopathy symptoms, bilateral shoulder pain. Patient is being managed with oxycodone 10 mg 4 times a day. Patient denies any side effects from the medications. Patient denies any changes to the location and type of pain. Patient states that this is adequately helping manage their pain. Rates pain as 4 out of 10. [facility] number [id number] with an active morphine equivalent 60. Drug screens have been reviewed and appropriate. Review of Systems: General: No recent weight changes, no fever, no sleep disturbances Respiratory: No cough, no shortness of air, no recurring pulmonary infections Cardiovascular/peripheral vascular: No chest pain, no palpitations, no edema, no shortness of breath Gastrointestinal: No new onset incontinence, normal bowel movements reported Genitourinary: No new onset incontinence Musculoskeletal: Back pain, shoulder pain Psychiatric: [Normal mood/affect] Neurological: [Denies weakness in extremities], [denies balance issues] Objective:: Physical Exam: General: Alert and oriented x3, no acute distress, pleasant and cooperative, [on room air] Lungs: Respirations even and unlabored, symmetrical chest expansion Eyes: PERRL Musculoskeletal: Flexion and extension of lumbar [spine] somewhat guarded secondary to pain, [antalgic gait noted] Neurological: Speech clear, no gross sensory deficit Assessment:: Degenerative disc disease of lumbar spine with lumbar radiculopathy symptoms Plan:: We will continue the patient's oxycodone 10 mg 4 times a day. We will provide the patient with 1 month worth of refill. We will follow with this patient in 1 month. Patient has been instructed to contact the clinic with any concerns before the next appointment. Dr. Oleary has reviewed this note and agrees with this plan of care. This note was dictated using voice recognition software and make contain errors or omissions. [facility] History *Have you ever received a pneumonia vaccine?: Yes *Have you received a flu vaccine this season?: Yes - *Social History Smoking Status: Unknown if ever smoked Alcohol Intake: never *Occupational Status:: retired *Travel in the last 8 weeks: None Family Hx:: Non-contributory
== END ==
PROVIDERS: Visit Provider Student in an Organized Health Care Education/Training Program
DX: M51.16 Intervertebral disc disorders with radiculopathy, lumbar region (principal); Z79.891 Long term (current) use of opiate analgesic
CPT/HCPCS: 80305; 80361; 80365; 99212; G0463; G0480

== ENCOUNTER → 2021-09-19 10:54 | Outpatient (CLI) | payer MEDICARE, SELFPAY ==
[2021-09-19 14:43] LABS: Amphetamine/Metha Screen,Urine Negative ng/ml (<1000); Barbiturates Screen,Urine Negative ng/ml (<200)
[2021-09-19 14:44] LABS: Benzodiazepines Screen,Urine Negative ng/ml (<200)
[2021-09-19 14:50] LABS: Cocaine Screen,Urine Negative ng/ml (<300)
[2021-09-19 14:51] LABS: Cannabinoid Screen,Urine Negative ng/ml (<50); Methadone Screen,Urine Negative ng/ml (<300)
[2021-09-19 14:52] LABS: Opiate Screen,Urine Negative ng/ml (<300)
[2021-09-19 14:53] LABS: Phencyclidine Screen,Urine Negative ng/ml (<25)
[2021-10-04 17:15] LABS: Opiates Negative (Cutoff=100); Oxycodone (GC/MS) 1913 ng/mL (Cutoff=100); Oxymorphone (GC/MS) 144 ng/mL (Cutoff=100)
== END ==
PROVIDERS: Visit Provider Student in an Organized Health Care Education/Training Program
DX: Z79.891 Long term (current) use of opiate analgesic (principal)
CPT/HCPCS: 80305; 80361; 80365; 99212; G0463; G0480

== ENCOUNTER → 2021-10-17 09:56 | Outpatient (POV) | payer MEDICARE, SELFPAY ==
[2021-10-17 10:04] VITALS: BP 151/88; PULSE 79; RESP 18; TEMP 36.2; O2SAT 100; BMI 23.6
--- NOTE | 2021-10-17 11:35 | P.CONS_ITS ---
[facility] Pain Management SOAP Note Subjective:: Patient is a pleasant 76-year-old male who is here for medication refill and follow-up. Patient is currently being treated for degenerative disc disease of lumbar spine with lumbar radiculopathy symptoms, bilateral shoulder pain. Patient is being managed with oxycodone 10 mg 4 times a day. Patient denies any side effects from the medications. Patient denies any changes to the location and type of pain. Patient states that this is adequately helping manage their pain. Rates pain as 4 out of 10. [facility] number [id number] with an active morphine equivalent 60. Drug screens have been reviewed and appropriate. Patient is also following up with an orthopedic surgeon and [place] daughter. He has had multiple bilateral shoulder surgeries in the past. They recommend that they do a right shoulder replacement. He is not sure if he wants to proceed with this procedure. Review of Systems: General: No recent weight changes, no fever, no sleep disturbances Respiratory: No cough, no shortness of air, no recurring pulmonary infections Cardiovascular/peripheral vascular: No chest pain, no palpitations, no edema, no shortness of breath Gastrointestinal: No new onset incontinence, normal bowel movements reported Genitourinary: No new onset incontinence Musculoskeletal: Low back pain, bilateral shoulder pain Psychiatric: [Normal mood/affect] Neurological: [Denies weakness in extremities], [denies balance issues] Objective:: Physical Exam: General: Alert and oriented x3, no acute distress, pleasant and cooperative Lungs: Respirations even and unlabored, symmetrical chest expansion Eyes: PERRL Musculoskeletal: Flexion and extension of lumbar [spine] somewhat guarded secondary to pain, [antalgic gait noted]; limited range of motion of bilateral shoulder secondary to pain Neurological: Speech clear, no gross sensory deficit Assessment:: Degenerative disc disease of lumbar spine with lumbar radiculopathy symptoms Plan:: We will continue the patient's oxycodone 10 mg 4 times a day. We will provide the patient with 1 month of refills. We would like to see the patient back in 1 month for follow-up and reevaluation of chronic pain syndrome. Patient has been advised of risks of oversedation with the prescribed medication. Narcan has been offered to the patient in the event of oversedation. Patient has been advised that a family member should also be educated regarding administration of Narcan. Patient has been instructed to contact the clinic with any concerns before the next appointment. Dr. Oleary has reviewed this note and agrees with this plan of care. This note was dictated using voice recognition software and make contain errors or omissions. [facility] History *Have you ever received a pneumonia vaccine?: Yes *Have you received a flu vaccine this season?: Yes - *Social History Smoking Status: Unknown if ever smoked Alcohol Intake: never *Occupational Status:: retired *Travel in the last 8 weeks: None Family Hx:: Non-contributory
== END ==
PROVIDERS: Visit Provider Student in an Organized Health Care Education/Training Program
DX: M51.16 Intervertebral disc disorders with radiculopathy, lumbar region (principal)
CPT/HCPCS: 99212; G0463

== ENCOUNTER → 2021-11-14 11:03 | Outpatient (POV) | payer MEDICARE, SELFPAY ==
[2021-11-14 11:15] VITALS: BP 180/69; PULSE 70; RESP 20; O2SAT 99; BMI 25.8
--- NOTE | 2021-11-14 12:54 | P.CONS_ITS ---
[facility] Pain Management SOAP Note Subjective:: Patient is a pleasant 76-year-old male who is here for medication refill and follow-up. Patient is currently being treated for degenerative disc disease of the lumbar spine with lumbar radiculopathy symptoms, bilateral shoulder pain. Patient is being managed with oxycodone 10 mg 4 times a day. Patient denies any side effects from the medications. Rates pain as 3 out of 10. [facility] number [id number] with an active morphine equivalent 60. Drug screen on 09/19/2021 has been reviewed and appropriate. Patient is also having considerable pain around his bilateral shoulders. He was recommended for a right shoulder replacement/revision. He is still unsure if he wants to proceed with this procedure. He wants to look for an orthopedic surgeon that does a lot of shoulder revisions. Most of his pain right now is from his shoulders. He has woken up multiple times because of shoulder pain. He does state that the oxycodone is helping this pain. He has not any blood thinners and no history of GI bleeding. He takes Advil from time to time. Review of Systems: General: No recent weight changes, no fever, no sleep disturbances Respiratory: No cough, no shortness of air, no recurring pulmonary infections Cardiovascular/peripheral vascular: No chest pain, no palpitations, no edema, no shortness of breath Gastrointestinal: No new onset incontinence, normal bowel movements reported Genitourinary: No new onset incontinence Musculoskeletal: Low back pain, bilateral shoulder pain Psychiatric: [Normal mood/affect] Neurological: [Denies weakness in extremities], [denies balance issues] Objective:: Physical Exam: General: Alert and oriented x3, no acute distress, pleasant and cooperative Lungs: Respirations even and unlabored, symmetrical chest expansion Eyes: PERRL Musculoskeletal: Flexion and extension of lumbar [spine] somewhat guarded secondary to pain, [antalgic gait noted]; limited range of motion bilateral shoulder secondary to pain Neurological: Speech clear, no gross sensory deficit Assessment:: Degenerative disease of lumbar spine with lumbar radiculopathy symptoms, osteoarthritis of bilateral shoulders Plan:: We will continue the patient's oxycodone 10 mg 4 times a day. I will also start the patient on meloxicam 15 mg daily. Patient is to take this medication with meals every time. We will provide the patient with 1 month of refills. We would like to see the patient back in 1 month for follow-up and reevaluation of chronic pain syndrome. Patient has been advised of risks of oversedation with the prescribed medication. Narcan has been offered to the patient in the event of overs edation. Patient has been advised that a family member should also be educated regarding administration of Narcan. Patient has been instructed to contact the clinic with any concerns before the next appointment. Dr. Oleary has reviewed this note and agrees with this plan of care. This note was dictated using voice recognition software and make contain errors or omissions. [facility] History *Have you ever received a pneumonia vaccine?: Yes *Have you received a flu vaccine this season?: Yes - *Social History Smoking Status: Unknown if ever smoked Alcohol Intake: never *Occupational Status:: other *Travel in the last 8 weeks: None Family Hx:: Non-contributory
== END ==
PROVIDERS: Visit Provider Student in an Organized Health Care Education/Training Program
DX: M51.16 Intervertebral disc disorders with radiculopathy, lumbar region (principal); M19.011 Primary osteoarthritis, right shoulder; M19.012 Primary osteoarthritis, left shoulder
CPT/HCPCS: 99212; G0463

== ENCOUNTER → 2021-12-12 12:55 | Outpatient (POV) | payer MEDICARE, SELFPAY ==
[2021-12-12 13:01] VITALS: BP 137/81; PULSE 71; RESP 20; O2SAT 98; BMI 26.6
--- NOTE | 2021-12-12 13:35 | P.CONS_ITS ---
[facility] Pain Management SOAP Note Subjective:: Patient is a pleasant 76-year-old male who is here for medication refill and follow-up. Patient is currently being treated for degenerative disc disease of lumbar spine with lumbar radiculopathy symptoms, bilateral shoulder pain. Patient is being managed with oxycodone 10 mg 4 times a day. He also takes Tylenol as needed.. Patient denies any side effects from the medications. Patient denies any changes to the location and type of pain. Patient states that this is adequately helping manage their pain. Rates pain as 4 out of 10. [facility] number [id number] with an active morphine equivalent 60. Drug screens have been reviewed and appropriate. I also started this patient on meloxicam 15 mg daily. Patient has not started taking this medication. Review of Systems: General: No recent weight changes, no fever, no sleep disturbances Respiratory: No cough, no shortness of air, no recurring pulmonary infections Cardiovascular/peripheral vascular: No chest pain, no palpitations, no edema, no shortness of breath Gastrointestinal: No new onset incontinence, normal bowel movements reported Genitourinary: No new onset incontinence Musculoskeletal: Low back pain Psychiatric: [Normal mood/affect] Neurological: [Denies weakness in extremities], [denies balance issues] Objective:: Physical Exam: General: Alert and oriented x3, no acute distress, pleasant and cooperative Lungs: Respirations even and unlabored, symmetrical chest expansion Eyes: PERRL Musculoskeletal: Flexion and extension of lumbar [spine] somewhat guarded secondary to pain, [antalgic gait noted] Neurological: Speech clear, no gross sensory deficit Assessment:: Degenerative disc disease of lumbar spine with lumbar radiculopathy symptoms, bilateral shoulder pain Plan:: We will continue the patient's oxycodone 10 mg 4 times a day. We will provide the patient with 1 month worth of refill and would like to see this patient back in 1 month. Patient has been instructed to contact the clinic with any concerns before the next appointment. Dr. Oleary has reviewed this note and agrees with this plan of care. This note was dictated using voice recognition software and make contain errors or omissions. [facility] History *Have you ever received a pneumonia vaccine?: Yes *Have you received a flu vaccine this season?: Yes - *Social History Smoking Status: Unknown if ever smoked Alcohol Intake: never *Occupational Status:: retired *Travel in the last 8 weeks: None Family Hx:: Non-contributory
== END ==
PROVIDERS: Visit Provider Student in an Organized Health Care Education/Training Program
DX: M51.16 Intervertebral disc disorders with radiculopathy, lumbar region (principal); M25.512 Pain in left shoulder; M25.511 Pain in right shoulder
CPT/HCPCS: 99212; G0463

== ENCOUNTER → 2022-01-09 12:58 | Outpatient (POV) | payer MEDICARE, SELFPAY ==
[2022-01-09 13:09] VITALS: BMI 27.3
--- NOTE | 2022-01-09 13:41 | HMH.PAINSOAP ---
[facility] Pain Management SOAP Note Subjective:: Patient is a pleasant 76-year-old male who is here for medication refill and follow-up. Patient is currently being treated for degenerative disc disease of lumbar spine with lumbar radiculopathy symptoms, bilateral shoulder pain. Patient is being managed with oxycodone 10 mg 4 times a day. He also takes Tylenol as needed. I also started this patient on meloxicam 15 mg daily. He states that he has been taking this intermittently and has had some relief. Patient denies any side effects from the medications. Patient denies any changes to the location and type of pain. Patient states that this is adequately helping manage their pain. Rates pain as 4 out of 10. [facility] number [id number] with an active morphine equivalent 60. Drug screens have been reviewed and appropriate. Review of Systems: General: No recent weight changes, no fever, no sleep disturbances Respiratory: No cough, no shortness of air, no recurring pulmonary infections Cardiovascular/peripheral vascular: No chest pain, no palpitations, no edema, no shortness of breath Gastrointestinal: No new onset incontinence, normal bowel movements reported Genitourinary: No new onset incontinence Musculoskeletal: Low back pain Psychiatric: [Normal mood/affect] Neurological: [Denies weakness in extremities], [denies balance issues] Objective:: Physical Exam: General: Alert and oriented x3, no acute distress, pleasant and cooperative Lungs: Respirations even and unlabored, symmetrical chest expansion Eyes: PERRL Musculoskeletal: Flexion and extension of lumbar [spine] somewhat guarded secondary to pain, [antalgic gait noted] Neurological: Speech clear, no gross sensory deficit Assessment:: Degenerative disc disease of the lumbar spine with lumbar radiculopathy symptoms, bilateral shoulder pain Plan:: We will continue the patient's oxycodone 10 mg 4 times a day and meloxicam 15 mg daily. We will provide the patient with 1 month of refills. We would like to see the patient back in 1 month for follow-up and reevaluation of chronic pain syndrome. Patient has been advised of risks of oversedation with the prescribed medication. Narcan has been offered to the patient in the event of oversedation. Patient has been advised that a family member should also be educated regarding administration of Narcan. Patient has been instructed to contact the clinic with any concerns before the next appointment. Dr. Oleary has reviewed this note and agrees with this plan of care. This note was dictated using voice recognition software and make contain errors or omissions. [facility] History *Have you ever received a pneumonia vaccine?: Yes *Have you received a flu vaccine this season?: Yes - *Social History Smoking Status: Unknown if ever smoked Alcohol Intake: never *Occupational Status:: retired *Travel in the last 8 weeks: None Family Hx:: Non-contributory
== END ==
PROVIDERS: Visit Provider Student in an Organized Health Care Education/Training Program
DX: M51.16 Intervertebral disc disorders with radiculopathy, lumbar region (principal); M25.511 Pain in right shoulder; M25.512 Pain in left shoulder
CPT/HCPCS: 99212; G0463

== ENCOUNTER → 2022-02-06 10:18 | Outpatient (POV) | payer MEDICARE, SELFPAY ==
--- NOTE | 2022-02-06 10:36 | EXP.PAIN.SOA ---
[facility] Pain Management SOAP Note Subjective:: Patient is a pleasant 76-year-old male who presents today for follow-up and medication refill. We are currently treating the patient for degenerative disc disease of lumbar spine with lumbar radiculopathy symptoms, bilateral shoulder pain. Today the patient rates his pain a 4 out of 10. He states the pain is primarily in his low back that radiates into his bilateral lower extremities. He describes it as an aching throbbing sensation that is worse with increased activity. He states this is a intermittent sensation. Patient denies any new trauma or injury. Patient denies any change to the location or type of pain he experiences. Patient is currently prescribed meloxicam 15 mg daily and he also takes Tylenol as needed. Patient is managed with oxycodone 10 mg 4 times a day. Patient denies any side effects from this medication. He states this medication is adequately managing his pain. His Nirmal is [id number]. It has been reviewed and appropriate. Review of Systems: General: No recent weight changes, no fever, no sleep disturbances Respiratory: No cough, no shortness of air, no recurring pulmonary infections Cardiovascular/peripheral vascular: No chest pain, no palpitations, no edema, no shortness of breath Gastrointestinal: No new onset incontinence, normal bowel movements reported Genitourinary: No new onset incontinence Musculoskeletal: Low back pain Psychiatric: [Normal mood/affect] Neurological: [Denies weakness in extremities], [denies balance issues] Objective:: Physical Exam: General: Alert and oriented x3, no acute distress, pleasant and cooperative Lungs: Respirations even and unlabored, symmetrical chest expansion Eyes: PERRL Musculoskeletal: Flexion and extension of lumbar [spine] somewhat guarded secondary to pain, [antalgic gait noted] Neurological: Speech clear, no gross sensory deficit Assessment:: Degenerative disc disease of lumbar spine with lumbar radiculopathy symptoms, bilateral shoulder pain Plan:: Patient continues to have significant improvement of his pain symptoms with the current medication regimen. I will refill the patient's oxycodone 10 mg 4 times a day and provide a 1 month supply of this medication. I will also send in a refill on his meloxicam 15 mg daily. Patient will return to clinic in 1 month for follow-up, reevaluation of symptoms and medication refill. Patient has been advised of risks of oversedation with the prescribed medication. Narcan has been offered to the patient in the event of oversedation. Patient has been advised that a family member should also be educated regarding administration of Narcan. Patient has been instructed to contact the clinic with any concerns before the next appointment. Dr. Oleary has reviewed this note and agrees with this plan of care. This note was dictated using voice recognition software and make contain errors or omissions. PFSH PFSH Social History Smoking Status: Unknown if ever smoked alcohol intake: never current occupational status: retired Travel in the last 8 weeks: None
[2022-02-06 10:46] VITALS: BP 134/62; PULSE 70; RESP 18; TEMP 36.6; O2SAT 100; BMI 25.1
== END | disposition home or self-care (01) ==
PROVIDERS: Visit Provider Nurse Practitioner Family
DX: M51.16 Intervertebral disc disorders with radiculopathy, lumbar region (principal); M25.511 Pain in right shoulder; M25.512 Pain in left shoulder; Z79.899 Other long term (current) drug therapy
CPT/HCPCS: 99212; G0463

== ENCOUNTER → 2022-03-10 11:05 | Outpatient (POV) | payer MEDICARE, SELFPAY ==
[2022-03-10 11:41] VITALS: BP 152/63; PULSE 67; RESP 18; TEMP 36.4; O2SAT 100; BMI 24.7
== END | disposition home or self-care (01) ==
PROVIDERS: Visit Provider Nurse Practitioner Family
DX: M51.16 Intervertebral disc disorders with radiculopathy, lumbar region (principal); M25.511 Pain in right shoulder; M25.512 Pain in left shoulder; Z72.0 Tobacco use
CPT/HCPCS: 99212; G0463

== ENCOUNTER → 2022-03-10 11:59 | Outpatient (CLI) | payer MEDICARE, SELFPAY ==
--- NOTE | 2022-03-10 12:42 | A.OFFVIS_ITS ---
[facility] Pain Management SOAP Note Subjective:: Patient is a pleasant 76-year-old male who presents today for medication refill and follow-up. We are currently treating the patient for degenerative disc disease of lumbar spine with lumbar radiculopathy symptoms, bilateral shoulder pain. Today he rates his pain a 5 out of 10. He states the pain is in his bilateral shoulders and low back. Patient denies any new trauma or injury. He denies any change to location or type of pain he experiences. He states this is an aching, throbbing sensation that is worse with increased activity. He is currently managed with oxycodone 10 mg 4 times a day. Patient denies any side effects with this medication. He states this medication does adequately help manage his pain. He also takes meloxicam 15 mg daily and Tylenol as needed. He is requesting refills of his oxycodone and meloxicam. His Nirmal is [id number]. It has been reviewed and appropriate. Review of Systems: General: No recent weight changes, no fever, no sleep disturbances Respiratory: No cough, no shortness of air, no recurring pulmonary infections Cardiovascular/peripheral vascular: No chest pain, no palpitations, no edema, no shortness of breath Gastrointestinal: No new onset incontinence, normal bowel movements reported Genitourinary: No new onset incontinence Musculoskeletal: Low back pain, bilateral shoulder pain Psychiatric: [Normal mood/affect] Neurological: [Denies weakness in extremities], [denies balance issues] Objective:: Physical Exam: General: Alert and oriented x3, no acute distress, pleasant and cooperative Lungs: Respirations even and unlabored, symmetrical chest expansion Eyes: PERRL Musculoskeletal: Flexion and extension of lumbar [spine] somewhat guarded secondary to pain, [antalgic gait noted] Neurological: Speech clear, no gross sensory deficit Assessment:: Degenerative disc disease of lumbar spine with lumbar radiculopathy symptoms, bilateral shoulder pain Plan:: Patient continues to have significant pain in his low back and bilateral shoulders. He is currently managed well with his oxycodone 10 mg 4 times a day and meloxicam 15 mg daily. I will provide a 1 month supply of his oxycodone and a 3-month supply of his meloxicam. Patient will return to clinic in 1 month for reevaluation of symptoms medication refill and follow-up. Patient has been advised of risks of oversedation with the prescribed medication. Narcan has been offered to the patient in the event of oversedation. Patient has been advised that a family member should also be educated regarding administration of Narcan. Patient has been instructed to contact the clinic with any concerns before the next appointment. Dr. Oleary has reviewed this note and agrees with this plan of care. This note was dictated using voice recognition software and make contain errors or omissions. PFSH PFS Social History Smoking Status: Unknown if ever smoked alcohol intake: never current occupational status: retired Travel in the last 8 weeks: None
[2022-03-10 12:57] LABS: Amphetamine/Metha Screen,Urine Negative ng/ml (<1000); Barbiturates Screen,Urine Negative ng/ml (<200)
[2022-03-10 12:58] LABS: Benzodiazepines Screen,Urine Negative ng/ml (<200); Cannabinoid Screen,Urine Negative ng/ml (<50)
[2022-03-10 12:59] LABS: Cocaine Screen,Urine Negative ng/ml (<300)
[2022-03-10 13:00] LABS: Methadone Screen,Urine Negative ng/ml (<300); Phencyclidine Screen,Urine Negative ng/ml (<25)
[2022-03-10 13:01] LABS: Opiate Screen,Urine Negative ng/ml (<300)
[2022-03-13 12:12] LABS: Opiates Negative (Cutoff=100); Oxycodone (GC/MS) 2620 ng/mL (Cutoff=100); Oxymorphone (GC/MS) 190 ng/mL (Cutoff=100)
== END ==
PROVIDERS: PCP Family Medicine; Visit Provider Nurse Practitioner Family
DX: Z79.891 Long term (current) use of opiate analgesic (principal)
CPT/HCPCS: 80305; 80361; 80365; 99212; G0463; G0480

== ENCOUNTER → 2022-04-10 11:36 | Outpatient (POV) | payer MEDICARE, SELFPAY ==
--- NOTE | 2022-04-10 11:51 | EXP.PAIN.SOA ---
[facility] Pain Management SOAP Note Subjective:: Patient is a pleasant 76-year-old male who presents today for medication refill and follow-up. We are currently treating the patient for degenerative disc disease of lumbar spine with lumbar radiculopathy symptoms, bilateral shoulder pain. Today the patient rates his pain a 5 out of 10. Patient denies any new trauma or injury. Patient denies any change in the location or type of pain he experiences. Patient continues to state his pain is in his shoulders and his back. Patient is currently managed with oxycodone 10 mg 4 times a day. Patient denies any side effects from this medication. He states this medication does adequately manage his pain symptoms. He is requesting a refill at today's visit. He is also taking meloxicam 15 mg at bedtime and Tylenol as needed. Patient would like additional refills on the meloxicam. His Nirmal is [id number]. It has been reviewed and appropriate. Review of Systems: General: No recent weight changes, no fever, no sleep disturbances Respiratory: No cough, no shortness of air, no recurring pulmonary infections Cardiovascular/peripheral vascular: No chest pain, no palpitations, no edema, no shortness of breath Gastrointestinal: No new onset incontinence, normal bowel movements reported Genitourinary: No new onset incontinence Musculoskeletal: Low back pain, shoulder pain Psychiatric: [Normal mood/affect] Neurological: [Denies weakness in extremities], [denies balance issues] Objective:: Physical Exam: General: Alert and oriented x3, no acute distress, pleasant and cooperative Lungs: Respirations even and unlabored, symmetrical chest expansion Eyes: PERRL Musculoskeletal: Flexion and extension of lumbar [spine] somewhat guarded secondary to pain, [antalgic gait noted] Neurological: Speech clear, no gross sensory deficit Assessment:: Degenerative disc disease of lumbar spine with lumbar radiculopathy symptoms, bilateral shoulder pain Plan:: Patient continues to experience significant pain however he is managed well with his current medication regimen. I will refill the patient's Percocet 10 mg 4 times a day and provide a 1 month supply of this medication. I will also fill the patient's meloxicam 15 mg and provide a 3-month supply of this medication. Patient will return to clinic in 1 month for reevaluation of symptoms, medication refill and follow-up. Patient has been advised of risks of oversedation with the prescribed medication. Narcan has been offered to the patient in the event of oversedation. Patient has been advised that a family member should also be educated regarding administration of Narcan. Patient has been instructed to contact the clinic with any concerns before the next appointment. Dr. Oleary has reviewed this note and agrees with this plan of care. This note was dictated using voice recognition software and make contain errors or omissions. PFSH PFS Social History Smoking Status: Unknown if ever smoked alcohol intake: never current occupational status: retired Travel in the last 8 weeks: None
[2022-04-10 11:57] VITALS: BP 142/70; PULSE 70; RESP 18; O2SAT 98; BMI 24.9
== END | disposition home or self-care (01) ==
PROVIDERS: PCP Family Medicine; Visit Provider Nurse Practitioner Family
DX: M51.16 Intervertebral disc disorders with radiculopathy, lumbar region (principal); M25.511 Pain in right shoulder; M25.512 Pain in left shoulder
CPT/HCPCS: 99212; G0463

== ENCOUNTER → 2022-05-08 09:41 | Outpatient (POV) | payer MEDICARE, SELFPAY ==
[2022-05-08 09:57] VITALS: BP 131/66; PULSE 72; RESP 18; O2SAT 97; BMI 24.7
--- NOTE | 2022-05-08 09:57 | A.OFFVIS_ITS ---
[facility] Pain Management SOAP Note Subjective:: Patient is a pleasant 76-year-old male who presents today for medication refill and follow-up. We are currently treating the patient for degenerative disc disease of lumbar spine with lumbar radiculopathy symptoms, bilateral shoulder pain. Today the patient rates his pain a 5 out of 10. Patient denies any new trauma or injury. Patient denies any change to location or type of pain he experiences. Patient is currently managed with oxycodone 10 mg 4 times a day and meloxicam 15 mg at bedtime. Patient denies any side effects from these medications. He states these medications do help with his pain symptoms. Patient will occasionally use Tylenol as needed. His Nirmal is [id number]. Its been reviewed and appropriate. Review of Systems: General: No recent weight changes, no fever, no sleep disturbances Respiratory: No cough, no shortness of air, no recurring pulmonary infections Cardiovascular/peripheral vascular: No chest pain, no palpitations, no edema, no shortness of breath Gastrointestinal: No new onset incontinence, normal bowel movements reported Genitourinary: No new onset incontinence Musculoskeletal: Low back pain Psychiatric: [Normal mood/affect] Neurological: [Denies weakness in extremities], [denies balance issues] Objective:: Physical Exam: General: Alert and oriented x3, no acute distress, pleasant and cooperative Lungs: Respirations even and unlabored, symmetrical chest expansion Eyes: PERRL Musculoskeletal: Flexion and extension of lumbar [spine] somewhat guarded secondary to pain, [antalgic gait noted] Neurological: Speech clear, no gross sensory deficit Assessment:: Degenerative disc disease of lumbar spine with lumbar radiculopathy symptoms, bilateral shoulder pain Plan:: Patient continues to experience significant pain in his low back and shoulders however he is doing well with his current medication regimen. I will refill his oxycodone 10 mg 4 times a day and meloxicam 15 mg at bedtime and provide a 1 month supply of these medications. Patient return to clinic in 1 month for reevaluation of symptoms, medication refill and follow-up. Patient has been advised of risks of oversedation with the prescribed medication. Narcan has been offered to the patient in the event of oversedation. Patient has been advised that a family member should also be educated regarding administration of Narcan. Patient has been instructed to contact the clinic with any concerns before the next appointment. Dr. Oleary has reviewed this note and agrees with this plan of care. This note was dictated using voice recognition software and make contain errors or omissions. [facility] Disclaimer: The information contained in this section may have been updated after the patient was seen, as this information can be updated by other users. Social History Smoking Status: Unknown if ever smoked alcohol intake: never current occupational status: retired Travel in the last 8 weeks: None
== END | disposition home or self-care (01) ==
PROVIDERS: PCP Family Medicine; Visit Provider Nurse Practitioner Family
DX: M51.16 Intervertebral disc disorders with radiculopathy, lumbar region (principal); M25.511 Pain in right shoulder; M25.512 Pain in left shoulder
CPT/HCPCS: 99212; G0463

== ENCOUNTER → 2022-06-09 11:05 | Outpatient (POV) | payer MEDICARE, SELFPAY ==
[2022-06-09 11:22] VITALS: BP 142/59; PULSE 73; RESP 18; O2SAT 98; BMI 24.7
--- NOTE | 2022-06-09 11:30 | A.OFFVIS_ITS ---
[facility] Pain Management SOAP Note Subjective:: Patient is a pleasant 76-year-old male who presents today for medication refill and follow-up. We are currently treating the patient for degenerative disc disease of lumbar spine with lumbar radiculopathy symptoms, bilateral shoulder pain. Today the patient rates his pain a 4 out of 10. Patient denies any new trauma or injury. Patient denies any change location or type of pain he experiences. Patient is currently managed with oxycodone 10 mg 4 times a day and meloxicam 15 mg at bedtime. Patient denies any side effects from these medications. He states these medications do adequately manage his pain symptoms. Patient does state he occasionally will use Tylenol as well. He is requesting refill at today's visit. His Nirmal is [id number]. Its been reviewed and appropriate. Review of Systems: General: No recent weight changes, no fever, no sleep disturbances Respiratory: No cough, no shortness of air, no recurring pulmonary infections Cardiovascular/peripheral vascular: No chest pain, no palpitations, no edema, no shortness of breath Gastrointestinal: No new onset incontinence, normal bowel movements reported Genitourinary: No new onset incontinence Musculoskeletal: Low back pain Psychiatric: [Normal mood/affect] Neurological: [Denies weakness in extremities], [denies balance issues] Objective:: Physical Exam: General: Alert and oriented x3, no acute distress, pleasant and cooperative Lungs: Respirations even and unlabored, symmetrical chest expansion Eyes: PERRL Musculoskeletal: Flexion and extension of lumbar [spine] somewhat guarded secondary to pain, [antalgic gait noted] Neurological: Speech clear, no gross sensory deficit ORT score updated with low risk Assessment:: Degenerative disc disease of lumbar spine with lumbar radiculopathy symptoms, bilateral shoulder pain Plan:: Patient continues to experience significant pain in his low back and shoulders however he is doing well with his current medication regimen. I will refill the patient's oxycodone 10 mg 4 times a day and meloxicam 15 mg at bedtime and provide a 1 month supply of these medications. Patient will return to clinic in 1 month for reevaluation of symptoms, medication refill and follow-up. Patient has been advised of risks of oversedation with the prescribed medication. Narcan has been offered to the patient in the event of o versedation. Patient has been advised that a family member should also be educated regarding administration of Narcan. Patient has been instructed to contact the clinic with any concerns before the next appointment. Dr. Oleary has reviewed this note and agrees with this plan of care. This note was dictated using voice recognition software and make contain errors or omissions. [facility] Disclaimer: The information contained in this section may have been updated after the patient was seen, as this information can be updated by other users. Social History Smoking Status: Unknown if ever smoked alcohol intake: never current occupational status: retired Travel in the last 8 weeks: None
[2022-06-09 14:37] LABS: Amphetamine/Metha Screen,Urine Negative ng/ml (<1000); Barbiturates Screen,Urine Negative ng/ml (<200)
[2022-06-09 14:38] LABS: Benzodiazepines Screen,Urine Negative ng/ml (<200); Cannabinoid Screen,Urine Negative ng/ml (<50)
[2022-06-09 14:39] LABS: Cocaine Screen,Urine Negative ng/ml (<300)
[2022-06-09 14:40] LABS: Methadone Screen,Urine Negative ng/ml (<300); Opiate Screen,Urine Negative ng/ml (<300)
[2022-06-09 14:41] LABS: Phencyclidine Screen,Urine Negative ng/ml (<25)
[2022-06-13 10:52] LABS: Opiates Negative (Cutoff=100); Oxycodone (GC/MS) 428 ng/mL (Cutoff=100)
== END | disposition home or self-care (01) ==
PROVIDERS: PCP Family Medicine; Visit Provider Nurse Practitioner Family
DX: M51.16 Intervertebral disc disorders with radiculopathy, lumbar region (principal); Z79.891 Long term (current) use of opiate analgesic; M25.511 Pain in right shoulder; M25.512 Pain in left shoulder
CPT/HCPCS: 80305; 80361; 80365; 99212; G0463; G0480

== ENCOUNTER → 2022-06-09 11:28 | Outpatient (CLI) | payer MEDICARE, SELFPAY | PROVIDERS: PCP Family Medicine; Visit Provider Nurse Practitioner Family | DX: Z79.891 Long term (current) use of opiate analgesic (principal) ==

== ENCOUNTER → 2022-07-09 09:38 | Outpatient (POV) | payer MEDICARE, SELFPAY ==
--- NOTE | 2022-07-09 10:06 | EXP.PAIN.SOA ---
[facility] Pain Management SOAP Note Subjective:: Patient is a pleasant 76-year-old male who presents today for medication refill and follow-up. We are currently treating the patient for degenerative disc disease of lumbar spine with lumbar radiculopathy symptoms, bilateral shoulder pain. Today he rates his pain a 4 out of 10. Patient denies any new trauma or injury. Patient denies any change to the location or type of pain he experiences. Patient states he did recently get his COVID vaccine and has done well with this. Patient is currently managed with oxycodone 10 mg 4 times a day and meloxicam 15 mg at bedtime. Patient denies any side effects with this medication and he states it does provide significant improvement. Patient states he does continue to take Tylenol as needed. His Nirmal is [id number]. Its been reviewed and appropriate. Review of Systems: General: No recent weight changes, no fever, no sleep disturbances Respiratory: No cough, no shortness of air, no recurring pulmonary infections Cardiovascular/peripheral vascular: No chest pain, no palpitations, no edema, no shortness of breath Gastrointestinal: No new onset incontinence, normal bowel movements reported Genitourinary: No new onset incontinence Musculoskeletal: Low back pain Psychiatric: [Normal mood/affect] Neurological: [Denies weakness in extremities], [denies balance issues] Objective:: Physical Exam: General: Alert and oriented x3, no acute distress, pleasant and cooperative Lungs: Respirations even and unlabored, symmetrical chest expansion Eyes: PERRL Musculoskeletal: Flexion and extension of lumbar [spine] somewhat guarded secondary to pain, [antalgic gait noted] Neurological: Speech clear, no gross sensory deficit Assessment:: Degenerative disc disease of lumbar spine with lumbar radiculopathy symptoms, bilateral shoulder pain Plan:: Patient continues to experience significant pain however he is doing well with his current medication regimen. I will refill his oxycodone 10 mg 4 times a day and meloxicam 15 mg at night and provide a 1 month supply of these medications. Patient will return to clinic in 1 month for reevaluation of symptoms, medication refill and follow-up. Patient has been advised of risks of oversedation with the prescribed medication. Narcan has been offered to the patient in the event of oversedation. Patient has been advised that a family member should also be educated regarding administration of Narcan. Patient has been instructed to contact the clinic with any concerns before the next appointment. Dr. Oleary has reviewed this note and agrees with this plan of care. This note was dictated using voice recognition software and make contain errors or omissions. [facility] Disclaimer: The information contained in this section may have been updated after the patient was seen, as this information can be updated by other users. Social History Smoking Status: Unknown if ever smoked alcohol intake: never current occupational status: retired Travel in the last 8 weeks: None
[2022-07-09 10:34] VITALS: BP 134/89; PULSE 71; RESP 18; O2SAT 98; BMI 24.9
== END | disposition home or self-care (01) ==
PROVIDERS: PCP Family Medicine; Visit Provider Nurse Practitioner Family
DX: M51.16 Intervertebral disc disorders with radiculopathy, lumbar region (principal); M25.511 Pain in right shoulder; M25.512 Pain in left shoulder
CPT/HCPCS: 99212; G0463

== ENCOUNTER → 2022-08-06 11:01 | Outpatient (POV) | payer MEDICARE, SELFPAY ==
--- NOTE | 2022-08-06 11:34 | EXP.PAIN.SOA ---
[facility] Pain Management SOAP Note Subjective:: Patient is a pleasant 76-year-old male who presents today for medication refill and follow-up. We are currently treating the patient for degenerative disc disease of lumbar spine with lumbar radiculopathy symptoms, bilateral shoulder pain. Today he rates his pain a 5 out of 10. Patient denies any new trauma or injury. Patient denies any change location or type of pain he experiences. He is currently managed with oxycodone 10 mg 4 times a day and meloxicam 15 mg at night. Patient denies any side effects from this medication. He will occasionally use Tylenol in addition to these medications as needed. His Nirmal is [id number]. Its been reviewed and appropriate. Review of Systems: General: No recent weight changes, no fever, no sleep disturbances Respiratory: No cough, no shortness of air, no recurring pulmonary infections Cardiovascular/peripheral vascular: No chest pain, no palpitations, no edema, no shortness of breath Gastrointestinal: No new onset incontinence, normal bowel movements reported Genitourinary: No new onset incontinence Musculoskeletal: Low back pain Psychiatric: [Normal mood/affect] Neurological: [Denies weakness in extremities], [denies balance issues] Objective:: Physical Exam: General: Alert and oriented x3, no acute distress, pleasant and cooperative Lungs: Respirations even and unlabored, symmetrical chest expansion Eyes: PERRL Musculoskeletal: Flexion and extension of lumbar [spine] somewhat guarded secondary to pain, [antalgic gait noted] Neurological: Speech clear, no gross sensory deficit Assessment:: Degenerative disc disease of lumbar spine with lumbar radiculopathy symptoms, bilateral shoulder pain Plan:: Patient is doing well with his current medication regimen. I will refill his oxycodone 10 mg 4 times a day and provide a 1 month supply of this along with meloxicam 15 mg at bedtime. Patient will return to clinic in 1 month for reevaluation of symptoms, medication refill and follow-up. Patient has been advised of risks of oversedation with the prescribed medication. Narcan has been offered to the patient in the event of oversedation. Patient has been advised that a family member should also be educated regarding administration of Narcan. Patient has been instructed to contact the clinic with any concerns before the next appointment. Dr. Oleary has reviewed this note and agrees with this plan of care. This note was dictated using voice recognition software and make contain errors or omissions. [facility] Disclaimer: The information contained in this section may have been updated after the patient was seen, as this information can be updated by other users. Social History Smoking Status: Unknown if ever smoked alcohol intake: never current occupational status: retired Travel in the last 8 weeks: None
[2022-08-06 12:39] VITALS: BP 136/65; PULSE 66; RESP 18; O2SAT 97; BMI 25.1
== END | disposition home or self-care (01) ==
PROVIDERS: PCP Family Medicine; Visit Provider Nurse Practitioner Family
DX: M51.16 Intervertebral disc disorders with radiculopathy, lumbar region (principal); M25.511 Pain in right shoulder; M25.512 Pain in left shoulder
CPT/HCPCS: 99212; G0463

== ENCOUNTER → 2022-09-08 10:49 | Outpatient (POV) | payer MEDICARE, SELFPAY ==
--- NOTE | 2022-09-08 10:55 | EXP.PAIN.SOA ---
[facility] Pain Management SOAP Note Subjective:: Patient is a pleasant 76-year-old male who presents today for medication refill and follow-up.? We are currently treating the patient for degenerative disc disease of lumbar spine with lumbar radiculopathy symptoms, bilateral shoulder pain.? Today he rates his pain a 3 out of 10.? He states he continues to have pain in his low back that is unrelated to any new trauma or injury. He is currently managed with oxycodone 10 mg 4 times a day and meloxicam 15 mg at night.? Patient denies any side effects from this medication.? His Nirmal is [id number].? Its been reviewed and appropriate. Review of Systems: General: No recent weight changes, no fever, no sleep disturbances Respiratory: No cough, no shortness of air, no recurring pulmonary infections Cardiovascular/peripheral vascular: No chest pain, no palpitations,? no edema, no shortness of breath Gastrointestinal: No new onset incontinence, normal bowel movements reported Genitourinary: No new onset incontinence Musculoskeletal: Low back pain Psychiatric: [Normal mood/affect] Neurological: [Denies weakness in extremities], [denies balance issues] Objective:: Physical Exam: General: Alert and oriented x3, no acute distress, pleasant and cooperative Lungs: Respirations even and unlabored, symmetrical chest expansion Eyes: PERRL Musculoskeletal: Flexion and extension of lumbar [spine] somewhat guarded secondary to pain, [antalgic gait noted] Neurological: Speech clear, no gross sensory deficit Assessment:: Degenerative disc disease of lumbar spine with lumbar radiculopathy symptoms, bilateral shoulder pain Plan:: I will refill his oxycodone 10 mg 4 times a day and meloxicam 15 mg at bedtime and provide a 1 month supply of this medication. Patient will return to clinic in 1 month for reevaluation of symptoms, medication refill and plan of care. Patient has been advised of risks of oversedation with the prescribed medication. Narcan has been offered to the patient in the event of oversedation. Patient has been advised that a family member should also be educated regarding administration of Narcan. Patient has been instructed to contact the clinic with any concerns before the next appointment. Dr. Oleary has reviewed this note and agrees with this plan of care. This note was dictated using voice recognition software and make contain errors or omissions. PFSH PFSH Disclaimer: The information contained in this section may have been updated after the patient was seen, as this information can be updated by other users. Social History Smoking Status: Unknown if ever smoked alcohol intake: never current occupational status: retired Travel in the last 8 weeks: None
[2022-09-08 11:31] VITALS: BP 125/53; PULSE 72; RESP 17; O2SAT 98; BMI 25.8
== END | disposition home or self-care (01) ==
PROVIDERS: PCP Family Medicine; Visit Provider Nurse Practitioner Family
DX: M51.16 Intervertebral disc disorders with radiculopathy, lumbar region (principal); M25.511 Pain in right shoulder; M25.512 Pain in left shoulder
CPT/HCPCS: 99212; G0463

== ENCOUNTER → 2022-10-06 10:49 | Outpatient (POV) | payer MEDICARE, SELFPAY ==
--- NOTE | 2022-10-06 10:55 | A.OFFVIS_ITS ---
[facility] Pain Management SOAP Note Subjective:: Patient is a pleasant 76-year-old male who presents today for medication refill and follow-up.? We are currently treating the patient for degenerative disc disease of lumbar spine with lumbar radiculopathy symptoms, bilateral shoulder pain.? Today he rates his pain a 3 out of 10.? He denies any new trauma or injury. He denies any change location to the type of pain he experiences. He is currently managed with oxycodone 10 mg 4 times a day and meloxicam 15 mg at night.? Patient denies any side effects from this medication.? His Nirmal is [id number].? Its been reviewed and appropriate. Review of Systems: General: No recent weight changes, no fever, no sleep disturbances Respiratory: No cough, no shortness of air, no recurring pulmonary infections Cardiovascular/peripheral vascular: No chest pain, no palpitations,? no edema, no shortness of breath Gastrointestinal: No new onset incontinence, normal bowel movements reported Genitourinary: No new onset incontinence Musculoskeletal: Low back pain Psychiatric: [Normal mood/affect] Neurological: [Denies weakness in extremities], [denies balance issues] Objective:: Physical Exam: General: Alert and oriented x3, no acute distress, pleasant and cooperative Lungs: Respirations even and unlabored, symmetrical chest expansion Eyes: PERRL Musculoskeletal: Flexion and extension of lumbar [spine] somewhat guarded secondary to pain, [antalgic gait noted] Neurological: Speech clear, no gross sensory deficit Assessment:: Degenerative disc disease of lumbar spine with lumbar radiculopathy symptoms, bilateral shoulder pain Plan:: Patient continues to do well with his current medication regimen. I will refill his oxycodone 10 mg 4 times a day and meloxicam 15 mg at night and provide a 1 month supply of these medications. Patient will return to clinic in 1 month for reevaluation of symptoms and plan of care. Patient has been advised of risks of oversedation with the prescribed medi cation. Narcan has been offered to the patient in the event of oversedation. Patient has been advised that a family member should also be educated regarding administration of Narcan. Patient has been instructed to contact the clinic with any concerns before the next appointment. Dr. Oleary has reviewed this note and agrees with this plan of care. This note was dictated using voice recognition software and make contain errors or omissions. [facility] Disclaimer: The information contained in this section may have been updated after the patient was seen, as this information can be updated by other users. Social History Smoking Status: Unknown if ever smoked alcohol intake: never current occupational status: retired Travel in the last 8 weeks: None
[2022-10-06 12:58] VITALS: BP 131/61; PULSE 71; RESP 18; O2SAT 97; BMI 26.2
== END | disposition home or self-care (01) ==
PROVIDERS: PCP Family Medicine; Visit Provider Nurse Practitioner Family
DX: M51.16 Intervertebral disc disorders with radiculopathy, lumbar region (principal); M25.511 Pain in right shoulder; M25.512 Pain in left shoulder
CPT/HCPCS: 99212; G0463

== ENCOUNTER → 2022-10-06 11:10 | Outpatient (CLI) | payer MEDICARE, SELFPAY ==
[2022-10-06 13:02] LABS: Benzodiazepines Screen,Urine Negative ng/ml (<200)
[2022-10-06 13:03] LABS: Amphetamine/Metha Screen,Urine Negative ng/ml (<1000); Barbiturates Screen,Urine Negative ng/ml (<200)
[2022-10-06 13:04] LABS: Cannabinoid Screen,Urine Negative ng/ml (<50)
[2022-10-06 13:05] LABS: Cocaine Screen,Urine Negative ng/ml (<300); Methadone Screen,Urine Negative ng/ml (<300)
[2022-10-06 13:06] LABS: Opiate Screen,Urine Negative ng/ml (<300); Phencyclidine Screen,Urine Negative ng/ml (<25)
[2022-10-12 11:08] LABS: Opiates Negative (Cutoff=100); Oxycodone (GC/MS) 1116 ng/mL (Cutoff=100); Oxymorphone (GC/MS) 101 ng/mL (Cutoff=100)
== END ==
PROVIDERS: Nurse Practitioner Family; PCP Family Medicine; Visit Provider Anesthesiology
DX: Z79.891 Long term (current) use of opiate analgesic (principal)
CPT/HCPCS: 80305; 80361; 80365; 99212; G0463; G0480

== ENCOUNTER → 2022-11-06 10:59 | Outpatient (POV) | payer MEDICARE, SELFPAY ==
--- NOTE | 2022-11-06 11:17 | EXP.PAIN.SOA ---
[facility] Pain Management SOAP Note Subjective:: Patient is a pleasant 77-year-old male who presents today for 1 month follow-up and medication refill. We are currently treating the patient for degenerative disc disease of lumbar spine with lumbar radiculopathy symptoms, bilateral shoulder pain. Today he rates his pain a 3 out of 10 patient denies any new trauma or injury. He does state that he has trouble sleeping on a regular basis. He states he does take Ambien however last night he still could not fall asleep and was up until the past 3 AM. Patient is currently managed with oxycodone 10 mg 4 times a day, meloxicam 15 mg at night from our office and cyclobenzaprine 10 mg from an outside provider. He does state that the meloxicam he did not really notice if it helped or it did not and at this time he is not worried about refilling this medication. Patient denies any side effects to his other medications. Patient states that he has been on the muscle relaxer for an extended period of time and has not noticed any additional improvement. His Nirmal is [id number]. Its been reviewed and appropriate. Review of Systems: General: No recent weight changes, no fever, no sleep disturbances Respiratory: No cough, no shortness of air, no recurring pulmonary infections Cardiovascular/peripheral vascular: No chest pain, no palpitations, no edema, no shortness of breath Gastrointestinal: No new onset incontinence, normal bowel movements reported Genitourinary: No new onset incontinence Musculoskeletal: Low back pain Psychiatric: [Normal mood/affect] Neurological: [Denies weakness in extremities], [denies balance issues] Objective:: Physical Exam: General: Alert and oriented x3, no acute distress, pleasant and cooperative Lungs: Respirations even and unlabored, symmetrical chest expansion Eyes: PERRL Musculoskeletal: Flexion and extension of lumbar [spine] somewhat guarded secondary to pain, [antalgic gait noted] Neurological: Speech clear, no gross sensory deficit Assessment:: Degenerative disc disease of lumbar spine with lumbar radiculopathy symptoms, bilateral shoulder pain Plan:: I will refill his oxycodone 10 mg 4 times a day and provide a 1 month supply of this medication. I will also send in a prescription of tizanidine 4 mg at bedtime and provide a 30-day supply of this. I have counseled the patient to discontinue his cyclobenzaprine while taking this medication. Patient will return to clinic in 1 month for reevaluation of symptoms and medication refill. Patient has been advised of risks of oversedation with the prescribed medication. Narcan has been offered to the patient in the event of oversedation. Patient has been advised that a family member should also be educated regarding administration of Narcan. Patient has been instructed to contact the clinic with any concerns before the next appointment. Dr. Oleary has reviewed this note and agrees with this plan of care. This note was dictated using voice recognition software and make contain errors or omissions. [facility] Disclaimer: The information contained in this section may have been updated after the patient was seen, as this information can be updated by other users. Social History Smoking Status: Unknown if ever smoked alcohol intake: never current occupational status: retired Travel in the last 8 weeks: None
[2022-11-06 11:30] VITALS: BP 122/71; PULSE 70; RESP 20; BMI 26.4
== END | disposition home or self-care (01) ==
PROVIDERS: PCP Family Medicine; Visit Provider Nurse Practitioner Family
DX: M51.16 Intervertebral disc disorders with radiculopathy, lumbar region (principal); M25.511 Pain in right shoulder; M25.512 Pain in left shoulder
CPT/HCPCS: 99212; G0463

== ENCOUNTER → 2022-12-05 10:11 | Outpatient (POV) | payer MEDICARE, SELFPAY ==
[2022-12-05 10:31] VITALS: BP 135/64; PULSE 79; RESP 18; O2SAT 100; BMI 26.4
--- NOTE | 2022-12-05 11:01 | EXP.PAIN.SOA ---
[facility] Pain Management SOAP Note Subjective:: This patient is a pleasant 77-year-old male that comes our clinic today for a 1 month follow-up and medication refill. Were currently treating the patient for degenerative disc disease lumbar spine multilevels. Lumbar radiculopathy. Chronic bilateral shoulder pain. He rates his pain today 4/10. Patient states his pain is constant, dull, aching in the lumbar spine with bilateral leg radicular symptoms. Patient currently being managed with oxycodone 10 mg 1 p.o. 4 times daily. Patient states the medication does help. He does not report any side effects from the medication. Patient also taking cyclobenzaprine 10 mg nightly from PCP. Patient states the meloxicam 15 mg 1 p.o. nightly is not helping. He will not be taking it any longer. Patient's Nirmal #[id number] has been reviewed and appropriate. Objective:: Patient is awake alert [place] x3. In no acute distress. Flexion-extension lumbar spine somewhat guarded secondary to pain. Deep tendon reflexes upper lower extremities normal. Motor strength upper and lower extremities normal. There is no gross sensory deficit. Gait is normal. Assessment:: Degenerative disc lumbar spine multilevels. Lumbar radiculopathy. Chronic bilateral shoulder pain Plan:: We will refill the patient's pain medication. Oxycodone 10 mg 1 p.o. 4 times daily. Patient will return in [address] [facility] Disclaimer: The information contained in this section may have been updated after the patient was seen, as this information can be updated by other users. Social History Smoking Status: Unknown if ever smoked alcohol intake: never substance use type: denies use current occupational status: other Travel in the last 8 weeks: None
== END | disposition home or self-care (01) ==
PROVIDERS: PCP Family Medicine; Visit Provider Nurse Anesthetist, Certified Registered
DX: M51.16 Intervertebral disc disorders with radiculopathy, lumbar region (principal); M25.511 Pain in right shoulder; M25.512 Pain in left shoulder; G89.29 Other chronic pain
CPT/HCPCS: 99212; G0463

== ENCOUNTER → 2023-01-05 11:19 | Outpatient (POV) | payer MEDICARE, SELFPAY ==
--- NOTE | 2023-01-05 11:40 | EXP.PAIN.SOA ---
[facility] Pain Management SOAP Note Subjective:: Patient is a pleasant 77-year-old male who presents today for follow-up and medication refill. We are currently treating the patient for degenerative disc disease of lumbar spine with lumbar radiculopathy symptoms, bilateral shoulder pain. Today he rates his pain a 4 out of 10. Patient denies any new trauma or injury. He states he continues to have pain in his low back with tingling and prickling sensations into his bilateral lower extremities patient was previously tried on tizanidine however he states he did not notice any additional improvement. Patient has also tried meloxicam in the past with no additional relief. He is currently managed with oxycodone 10 mg 4 times a day from our office and cyclobenzaprine 10 mg from an outside provider. Patient does state that he has had injection therapy in the past however it only provided temporary relief. Patient has also been prescribed compounding cream however it did not make any additional improvements. His Nirmal is [id number]. Its been reviewed and appropriate. Review of Systems: General: No recent weight changes, no fever, no sleep disturbances Respiratory: No cough, no shortness of air, no recurring pulmonary infections Cardiovascular/peripheral vascular: No chest pain, no palpitations, no edema, no shortness of breath Gastrointestinal: No new onset incontinence, normal bowel movements reported Genitourinary: No new onset incontinence Musculoskeletal: Low back pain, bilateral leg pain Psychiatric: [Normal mood/affect] Neurological: [Denies weakness in extremities], [denies balance issues] Objective:: Physical Exam: General: Alert and oriented x3, no acute distress, pleasant and cooperative Lungs: Respirations even and unlabored, symmetrical chest expansion Eyes: PERRL Musculoskeletal: Flexion and extension of lumbar [spine] somewhat guarded secondary to pain, [antalgic gait noted] Neurological: Speech clear, no gross sensory deficit Assessment:: Degenerative disc disease of lumbar spine with lumbar radiculopathy symptoms, bilateral shoulder pain Plan:: I will refill the patient's oxycodone 10 mg 4 times a day and provide a 1 month supply of this medication. I have counseled the patient that he may benefit from a lumbar epidural steroid injection. Risk and benefits were discussed with the patient however at this time he would like to wait. He does state that his pain is still tolerable. I have counseled the patient that if he does end up having worsening pain and would like to have this injection he can call to schedule it. Patient will return to clinic in 1 month for reevaluation of symptoms and plan of care. Patient has been instructed to contact the clinic with any concerns before the next appointment. Dr. Oleary has reviewed this note and agrees with this plan of care. This note was dictated using voice recognition software and make contain errors or omissions. [facility] Disclaimer: The information contained in this section may have been updated after the patient was seen, as this information can be updated by other users. Social History (Updated 12/05/22 @ 11:03 by Montrell Ta CRNA) Smoking Status: Unknown if ever smoked alcohol intake: never substance use type: denies use current occupational status: other Travel in the last 8 weeks: None
[2023-01-05 12:20] VITALS: BP 121/76; PULSE 74; RESP 18; O2SAT 98; BMI 26.4
== END | disposition home or self-care (01) ==
PROVIDERS: PCP Family Medicine; Visit Provider Nurse Practitioner Family
DX: M51.16 Intervertebral disc disorders with radiculopathy, lumbar region (principal); M25.511 Pain in right shoulder; M25.512 Pain in left shoulder
CPT/HCPCS: 99212; G0463

== ENCOUNTER → 2023-02-05 11:06 | Outpatient (POV) | payer MEDICARE, SELFPAY ==
--- NOTE | 2023-02-05 11:31 | A.OFFVIS_ITS ---
[facility] Pain Management SOAP Note Subjective:: Patient is a pleasant 77-year-old male who presents today for medication refill and follow-up. We are currently treating the patient for degenerative disc disease of lumbar spine with lumbar radiculopathy symptoms, bilateral shoulder pain. Today he rates his pain a 5 out of 10. Patient denies any new trauma or injury. He states he continues to have worsening low back pain that radiates into his bilateral lower extremities. At our last visit we did talk about possible lumbar epidurals however he still states he would like to wait and see if it gets better. Patient is currently managed with oxycodone 10 mg 4 times a day from our office and cyclobenzaprine 10 mg from an outside provider. He denies any side effects from this medication. He is prescribed compounding cream however he states that it has not made any additional improvements. His Nirmal is pending. Review of Systems: General: No recent weight changes, no fever, no sleep disturbances Respiratory: No cough, no shortness of air, no recurring pulmonary infections Cardiovascular/peripheral vascular: No chest pain, no palpitations, no edema, no shortness of breath Gastrointestinal: No new onset incontinence, normal bowel movements reported Genitourinary: No new onset incontinence Musculoskeletal: Low back pain, bilateral leg pain Psychiatric: [Normal mood/affect] Neurological: [Denies weakness in extremities], [denies balance issues] Objective:: Physical Exam: General: Alert and oriented x3, no acute distress, pleasant and cooperative Lungs: Respirations even and unlabored, symmetrical chest expansion Eyes: PERRL Musculoskeletal: Flexion and extension of lumbar [spine] somewhat guarded secondary to pain, [antalgic gait noted] Neurological: Speech clear, no gross sensory deficit Assessment:: Degenerative disc disease of lumbar spine with lumbar radiculopathy symptoms, bilateral shoulder pain Plan:: Patient is doing well with his current medication regimen. I will refill his oxycodone 10 mg 4 times a day and provide a 1 month supply of this medication. Patient will return to clinic in 1 month for reevaluation of symptoms and medication refill. Patient has been advised of risks of oversedation with the prescribed medication. Narcan has been offered to the patient in the event of oversedation. Patient has been advised that a family member should also be educated regarding administration of Narcan. Patient has been instructed to contact the clinic with any concerns before the next appointment. Dr. Oleary has reviewed this note and agrees with this plan of care. This note was dictated using voice recognition software and make contain errors or omissions. [facility] Disclaimer: The information contained in this section may have been updated after the patient was seen, as this information can be updated by other users. Social History (Updated 12/05/22 @ 11:03 by Montrell Ta CRNA) Smoking Status: Unknown if ever smoked alcohol intake: never substance use type: denies use current occupational status: other Travel in the last 8 weeks: None
[2023-02-05 12:29] VITALS: BP 123/67; PULSE 77; RESP 18; O2SAT 95; BMI 26.2
== END | disposition home or self-care (01) ==
PROVIDERS: PCP Family Medicine; Visit Provider Nurse Practitioner Family
DX: M51.16 Intervertebral disc disorders with radiculopathy, lumbar region (principal); M25.511 Pain in right shoulder; M25.512 Pain in left shoulder
CPT/HCPCS: 99212; G0463

== ENCOUNTER → 2023-03-06 11:07 | Outpatient (POV) | payer MEDICARE, SELFPAY ==
[2023-03-06 11:10] VITALS: BP 130/74; PULSE 72; RESP 20; BMI 24.9
--- NOTE | 2023-03-06 11:23 | EXP.PAIN.SOA ---
[facility] Pain Management SOAP Note Subjective:: Patient is a very pleasant 77-year-old male that returns our clinic today for medication refills. We currently treat the patient for chronic degenerative disc disease lumbar spine multilevels. Lumbar radiculopathy. Chronic bilateral shoulder pain. Patient has had shoulder surgery bilaterally. He continues having arthritic type pain. Patient has good strength in both arms. However, limited range of motion secondary to pain. We manage the patient with oxycodone 10 mg 1 p.o. 4 times daily. Patient states medication decreases his pain by 50 to 60%. He does not report any side effects or complications with the medicine. Patient also taking Flexeril 10 mg from his PCP. Patient's Nirmal #[id number] has been reviewed and appropriate. Patient rates his pain today 09/01. Objective:: Patient is awake alert [place] x3. In no acute distress. Flexion-extension lumbar spine somewhat guarded secondary to pain. Deep tendon reflexes upper and lower extremities normal. Motor strength upper and lower extremities normal. There is no gross sensory deficit. Gait is normal. Assessment:: Degenerative disc lumbar spine multilevels. Lumbar radiculopathy. Chronic bilateral shoulder pain. Plan:: We will send in refills for his pain medication oxycodone 10 mg 1 p.o. 4 times daily. Patient will return to see us in 1 month. [facility] Disclaimer: The information contained in this section may have been updated after the patient was seen, as this information can be updated by other users. Social History (Updated 12/05/22 @ 11:03 by Montrell Ta CRNA) Smoking Status: Unknown if ever smoked alcohol intake: never substance use type: denies use current occupational status: retired Travel in the last 8 weeks: None
== END | disposition home or self-care (01) ==
PROVIDERS: PCP Family Medicine; Visit Provider Nurse Anesthetist, Certified Registered
DX: M51.16 Intervertebral disc disorders with radiculopathy, lumbar region (principal); M25.511 Pain in right shoulder; M25.552 Pain in left hip; G89.29 Other chronic pain
CPT/HCPCS: 99212; G0463

== ENCOUNTER → 2023-03-06 11:25 | Outpatient (CLI) | payer MEDICARE, SELFPAY ==
[2023-03-06 12:43] LABS: Barbiturates Screen,Urine Negative ng/ml (<200)
[2023-03-06 12:44] LABS: Amphetamine/Metha Screen,Urine Negative ng/ml (<1000); Cannabinoid Screen,Urine Negative ng/ml (<50)
[2023-03-06 12:45] LABS: Benzodiazepines Screen,Urine Negative ng/ml (<200)
[2023-03-06 12:46] LABS: Cocaine Screen,Urine Negative ng/ml (<300); Methadone Screen,Urine Negative ng/ml (<300)
[2023-03-06 12:47] LABS: Phencyclidine Screen,Urine Negative ng/ml (<25)
[2023-03-06 12:48] LABS: Opiate Screen,Urine Negative ng/ml (<300)
[2023-03-11 15:33] LABS: Codeine Negative (Cutoff=100); Hydrocodone Positive (.); Hydromorphone Negative (Cutoff=100); Morphine Negative (Cutoff=100); Opiates Positive (.); Oxycodone (GC/MS) 1467 ng/mL (Cutoff=100); Oxymorphone (GC/MS) 136 ng/mL (Cutoff=100)
== END ==
PROVIDERS: Nurse Practitioner Family; PCP Family Medicine; Visit Provider Anesthesiology
DX: Z79.891 Long term (current) use of opiate analgesic (principal)
CPT/HCPCS: 80305; 80361; 80365; 99212; G0463; G0480

== ENCOUNTER → 2023-04-01 10:23 | Outpatient (POV) | payer MEDICARE, SELFPAY ==
--- NOTE | 2023-04-01 10:45 | A.OFFVIS_ITS ---
[facility] Pain Management SOAP Note Subjective:: Patient is a pleasant 77-year-old male who presents today for medication refill. We are currently treating the patient for degenerative disc disease of lumbar spine with lumbar radiculopathy symptoms, bilateral shoulder pain. Today he rates his pain a 4 out of 10. He denies any new trauma or injury from our last visit. He is currently managed with oxycodone 10 mg 4 times a day, and cyclobenzaprine 10 mg from an outside provider. HPatient denies any side effects to his other medications. His Nirmal has been reviewed and is appropriate Review of Systems: General: No recent weight changes, no fever, no sleep disturbances Respiratory: No cough, no shortness of air, no recurring pulmonary infections Cardiovascular/peripheral vascular: No chest pain, no palpitations, no edema, no shortness of breath Gastrointestinal: No new onset incontinence, normal bowel movements reported Genitourinary: No new onset incontinence Musculoskeletal: Low back pain Psychiatric: [Normal mood/affect] Neurological: [Denies weakness in extremities], [denies balance issues] Objective:: Physical Exam: General: Alert and oriented x3, no acute distress, pleasant and cooperative Lungs: Respirations even and unlabored, symmetrical chest expansion Eyes: PERRL Musculoskeletal: Flexion and extension of lumbar [spine] somewhat guarded secondary to pain, [antalgic gait noted] Neurological: Speech clear, no gross sensory deficit Assessment:: Degenerative disc disease of lumbar spine with lumbar radiculopathy symptoms, bilateral shoulder pain Plan:: Patient continues to do well with his current medication regimen. We will refill his oxycodone 10 mg 4 times a day and provide a 1 month supply of this medication. Patient will return to clinic in 1 month for reevaluation of symptoms and medication refill. Patient has been advised of risks of oversedation with the prescribed medication. Narcan has been offered to the patient in the event of overseda tion. Patient has been advised that a family member should also be educated regarding administration of Narcan. Patient has been instructed to contact the clinic with any concerns before the next appointment. Dr. Oleary has reviewed this note and agrees with this plan of care. This note was dictated using voice recognition software and make contain errors or omissions. [facility] Disclaimer: The information contained in this section may have been updated after the patient was seen, as this information can be updated by other users. Social History (Updated 12/05/22 @ 11:03 by Montrell Ta CRNA) Smoking Status: Unknown if ever smoked alcohol intake: never substance use type: denies use current occupational status: other Travel in the last 8 weeks: None
[2023-04-01 10:46] VITALS: BP 137/67; PULSE 77; RESP 18; O2SAT 98; BMI 24.3
== END | disposition home or self-care (01) ==
PROVIDERS: PCP Family Medicine; Visit Provider Nurse Practitioner Family
DX: M51.16 Intervertebral disc disorders with radiculopathy, lumbar region (principal); M25.511 Pain in right shoulder; M25.512 Pain in left shoulder
CPT/HCPCS: 99212; G0463

== ENCOUNTER → 2023-04-29 10:19 | Outpatient (POV) | payer MEDICARE, SELFPAY ==
[2023-04-29 10:38] VITALS: BP 155/66; PULSE 72; RESP 18; O2SAT 96; BMI 25.9
--- NOTE | 2023-04-29 10:51 | EXP.PAIN.SOA ---
[facility] Pain Management SOAP Note Subjective:: Patient is a pleasant 77-year-old male who presents today for 1 month follow-up and medication refill. We are currently treating the patient for degenerative disc disease of lumbar spine with lumbar radiculopathy symptoms, bilateral shoulder pain. Today he rates his pain a 4 out of 10. Patient states that he did fall coming to our office this morning at his home. He states that steps were slippery and he was trying to hold his coffee and the dog. Patient does not believe he had any significant issues other than just being sore. Patient is not interested in imaging. Patient is currently managed with oxycodone 10 mg 4 times a day and cyclobenzaprine 10 mg from an outside provider. Patient denies any side effects from this medication. His Nirmal has been reviewed and is appropriate. Review of Systems: General: No recent weight changes, no fever, no sleep disturbances Respiratory: No cough, no shortness of air, no recurring pulmonary infections Cardiovascular/peripheral vascular: No chest pain, no palpitations, no edema, no shortness of breath Gastrointestinal: No new onset incontinence, normal bowel movements reported Genitourinary: No new onset incontinence Musculoskeletal: Low back pain, buttocks pain Psychiatric: [Normal mood/affect] Neurological: [Denies weakness in extremities], [denies balance issues] Objective:: Physical Exam: General: Alert and oriented x3, no acute distress, pleasant and cooperative Lungs: Respirations even and unlabored, symmetrical chest expansion Eyes: PERRL Musculoskeletal: Flexion and extension of lumbar [spine] somewhat guarded secondary to pain, [antalgic gait noted] Neurological: Speech clear, no gross sensory deficit Assessment:: Degenerative disc disease of lumbar spine with lumbar radiculopathy symptoms, bilateral shoulder pain, buttocks pain Plan:: I will refill the patient's oxycodone 10 mg 4 times a day and also send in a 5-day supply of prednisone 20 mg twice daily. Patient will return to clinic in 1 month for reevaluation of symptoms and plan of care. Patient has been advised of risks of oversedation with the prescribed medication. Narcan has been offered to the patient in the event of oversedation. Patient has been advised that a family member should also be educated regarding administration of Narcan. Patient has been instructed to contact the clinic with any concerns before the next appointment. Dr. Oleary has reviewed this note and agrees with this plan of care. This note was dictated using voice recognition software and make contain errors or omissions. [facility] Disclaimer: The information contained in this section may have been updated after the patient was seen, as this information can be updated by other users. Social History (Updated 12/05/22 @ 11:03 by Montrell Ta CRNA) Smoking Status: Unknown if ever smoked alcohol intake: never substance use type: denies use current occupational status: retired Travel in the last 8 weeks: None
== END | disposition home or self-care (01) ==
PROVIDERS: PCP Family Medicine; Visit Provider Nurse Practitioner Family
DX: M51.16 Intervertebral disc disorders with radiculopathy, lumbar region (principal); M25.511 Pain in right shoulder; M25.512 Pain in left shoulder; M79.18 Myalgia, other site
CPT/HCPCS: 99212; G0463

== ENCOUNTER → 2023-05-27 11:02 | Outpatient (POV) | payer MEDICARE, SELFPAY ==
--- NOTE | 2023-05-27 11:15 | A.OFFVIS_ITS ---
[facility] Pain Management SOAP Note Subjective:: Patient is a pleasant 77-year-old male who presents today for medication refill. We are currently treating the patient for degenerative disc disease of lumbar spine with lumbar radiculopathy symptoms, bilateral shoulder pain. Today he rates his pain a 5 out of 10. He is currently managed with oxycodone 10 mg 4 times a day from our office and cyclobenzaprine 10 mg from an outside provider. Patient denies any side effects from this medication. At his last visit he had had a fall and he was prescribed prednisone. Patient states that this did help manage his increased soreness and that he is doing much better today and does not have any residual from this fall. He denies any new injuries. His Nirmal has been reviewed and is appropriate. Review of Systems: General: No recent weight changes, no fever, no sleep disturbances Respiratory: No cough, no shortness of air, no recurring pulmonary infections Cardiovascular/peripheral vascular: No chest pain, no palpitations, no edema, no shortness of breath Gastrointestinal: No new onset incontinence, normal bowel movements reported Genitourinary: No new onset incontinence Musculoskeletal: Low back pain Psychiatric: [Normal mood/affect] Neurological: [Denies weakness in extremities], [denies balance issues] Objective:: Physical Exam: General: Alert and oriented x3, no acute distress, pleasant and cooperative Lungs: Respirations even and unlabored, symmetrical chest expansion Eyes: PERRL Musculoskeletal: Flexion and extension of lumbar [spine] somewhat guarded secondary to pain, [antalgic gait noted] Neurological: Speech clear, no gross sensory deficit Assessment:: Degenerative disc disease of lumbar spine with lumbar radiculopathy symptoms, bilateral shoulder pain Plan:: I will refill the patient's oxycodone 10 mg 4 times a day and provide a 1 month supply of this medication. Patient will return to clinic in 1 month for reevaluation of symptoms and medication refill. Patient has been advised of risks of oversedation with the prescribed medication. Narcan has been offered to the patient in the event of oversedation. Patient has been advised that a family member should also be educated regarding administration of Narcan. Patient has been instructed to contact the clinic with any concerns before the next appointment. Dr. Oleary has reviewed this note and agrees with this plan of care. This note was dictated using voice recognition software and make contain errors or omissions. [facility] Disclaimer: The information contained in this section may have been updated after the patient was seen, as this information can be updated by other users. Social History (Updated 12/05/22 @ 11:03 by Montrell Ta CRNA) Smoking Status: Unknown if ever smoked alcohol intake: never substance use type: denies use current occupational status: retired Travel in the last 8 weeks: None
[2023-05-27 11:46] VITALS: BP 121/70; PULSE 78; RESP 18; O2SAT 99; BMI 25.7
== END | disposition home or self-care (01) ==
PROVIDERS: PCP Family Medicine; Visit Provider Nurse Practitioner Family
DX: M51.16 Intervertebral disc disorders with radiculopathy, lumbar region (principal); M25.511 Pain in right shoulder; M25.512 Pain in left shoulder
CPT/HCPCS: 99212; G0463

== ENCOUNTER 2023-05-27 11:56 | Outpatient (CLI) | payer MEDICARE, SELFPAY ==
[2023-05-27 19:12] LABS: Amphetamine/Metha Screen,Urine Negative ng/ml (<1000); Barbiturates Screen,Urine Negative ng/ml (<200); Benzodiazepines Screen,Urine Negative ng/ml (<200); Cannabinoid Screen,Urine Negative ng/ml (<50); Cocaine Screen,Urine Negative ng/ml (<300); Methadone Screen,Urine Negative ng/ml (<300); Opiate Screen,Urine Negative ng/ml (<300); Phencyclidine Screen,Urine Negative ng/ml (<25)
[2023-05-31 13:14] LABS: Opiates Negative (Cutoff=100); Oxycodone (GC/MS) 1559 ng/mL (Cutoff=100); Oxymorphone (GC/MS) 100 ng/mL (Cutoff=100)
== END 2023-05-27 23:59 ==
LOC: LAB 11:58
PROVIDERS: PCP Family Medicine; Visit Provider Nurse Practitioner Family
DX: Z79.891 Long term (current) use of opiate analgesic (principal)
CPT/HCPCS: 80307; 80361; 80365; 99212; G0463; G0480

== ENCOUNTER → 2023-06-26 11:04 | Outpatient (POV) | payer MEDICARE, SELFPAY ==
--- NOTE | 2023-06-26 11:30 | EXP.PAIN.SOA ---
[facility] Pain Management SOAP Note Subjective:: Patient is a very pleasant 77-year-old male that comes to clinic today for medication refills and follow-up. We currently treat the patient for chronic low back pain as well as bilateral hip and leg radicular symptoms associated with degenerative disc lumbar spine multilevels. Also, chronic bilateral shoulder pain secondary to osteoarthritis. He rates his pain today /10. Patient is being managed by us with oxycodone 10 mg 1 p.o. 4 times daily. Also patient takes Flexeril 10 mg from his PCP. Patient reports medications helped tremendously in terms of his overall pain and helps with daily activities. He does not report any side effects from the pain medication. His Nirmal has been reviewed and appropriate. Objective:: Patient is awake alert [place] x 3. In no acute distress. Flexion-extension lumbar spine somewhat guarded secondary to pain. Deep tendon reflexes upper lower extremities normal. Motor strength upper and lower extremities normal. There is no gross sensory deficit. Gait is normal. Assessment:: Degenerative disc lumbar spine multilevels. Lumbar radiculopathy. Chronic low back pain. Chronic bilateral shoulder pain. DJD bilateral shoulders. Plan:: I will refill the patient's pain medicines as noted above. He will return to see us in 1 month. [facility] Disclaimer: The information contained in this section may have been updated after the patient was seen, as this information can be updated by other users. Social History (Updated 12/05/22 @ 11:03 by Montrell Ta CRNA) Smoking Status: Unknown if ever smoked alcohol intake: never substance use type: denies use current occupational status: retired Travel in the last 8 weeks: None
[2023-06-26 11:36] VITALS: BP 142/86; PULSE 75; RESP 20; O2SAT 98; BMI 25.7
== END | disposition home or self-care (01) ==
PROVIDERS: PCP Family Medicine; Visit Provider Nurse Anesthetist, Certified Registered
DX: M51.16 Intervertebral disc disorders with radiculopathy, lumbar region (principal); M54.50 Low back pain, unspecified; G89.29 Other chronic pain; M19.011 Primary osteoarthritis, right shoulder; M19.012 Primary osteoarthritis, left shoulder; M25.511 Pain in right shoulder; M25.512 Pain in left shoulder
CPT/HCPCS: 99212; G0463

== ENCOUNTER 2023-07-27 10:20 | Outpatient (POV) | payer MEDICARE, SELFPAY ==
[2023-07-27 10:47] VITALS: BP 144/63; PULSE 73; RESP 18; BMI 25.8
--- NOTE | 2023-07-27 11:07 | A.OFFVIS_ITS ---
[facility] Pain Management SOAP Note Subjective:: Patient is a pleasant 77-year-old male who presents today for medication refill. We are currently treating the patient for degenerative disc disease of lumbar spine with lumbar radiculopathy symptoms, bilateral shoulder pain. Today he rates his pain a 5 out of 10. He denies any new trauma or injury. he is currently managed with oxycodone 10 mg 4 times a day from our office and cyclobenzaprine 10 mg from an outside provider. Patient denies any side effects from this medication. His Nirmal has been reviewed and is appropriate. Review of Systems: General: No recent weight changes, no fever, no sleep disturbances Respiratory: No cough, no shortness of air, no recurring pulmonary infections Cardiovascular/peripheral vascular: No chest pain, no palpitations, no edema, no shortness of breath Gastrointestinal: No new onset incontinence, normal bowel movements reported Genitourinary: No new onset incontinence Musculoskeletal: Low back pain Psychiatric: [Normal mood/affect] Neurological: [Denies weakness in extremities], [denies balance issues] Objective:: Physical Exam: General: Alert and oriented x3, no acute distress, pleasant and cooperative Lungs: Respirations even and unlabored, symmetrical chest expansion Eyes: PERRL Musculoskeletal: Flexion and extension of lumbar [spine] somewhat guarded secondary to pain, [antalgic gait noted] Neurological: Speech clear, no gross sensory deficit Assessment:: Degenerative disc disease of lumbar spine with lumbar radiculopathy symptoms, bilateral shoulder pain Plan:: I will refill his oxycodone 10 mg 4 times a day and provide a 1 month supply of these medications. Patient will return to clinic in 1 week for reevaluation of symptoms and plan of care. Risks and benefits of the medication have been explained in detail to the patient. The patient does understand the risk of dependence on the medication when given over a prolonged period. Patient has been advised of risks of oversedation with the prescribed medication. Narcan has been offered to the paitent in the event of oversedation. Patient has been advised that a family member should also be educated regarding administration of Narcan. The patient has been advised to consult with his/her primary care provider and pharmacist regarding drug-drug interaction of medications currently prescribed. Patient has been prescribed a controlled substance after being counseled on the medication, medication safety, and possible side effects. Opioid contract was reviewed and signed by the patient, and that they have agreed to all of the terms set forth by our compliance program. Patient has been instructed to contact the clinic with any concerns before the next appointment. Dr. Oleary has reviewed this note and agrees with this plan of care. This note was dictated using voice recognition software and make contain errors or omissions. [facility] Disclaimer: The information contained in this section may have been updated after the patient was seen, as this information can be updated by other users. Social History (Updated 12/05/22 @ 11:03 by Montrell Ta CRNA) Smoking Status: Unknown if ever smoked alcohol intake: never substance use type: denies use current occupational status: other Travel in the last 8 weeks: None
== END 2023-07-27 23:59 | disposition home or self-care (01) ==
PROVIDERS: PCP Family Medicine; Visit Provider Nurse Practitioner Family
DX: M51.16 Intervertebral disc disorders with radiculopathy, lumbar region (principal); M25.511 Pain in right shoulder; M25.512 Pain in left shoulder
CPT/HCPCS: 99212; G0463

== ENCOUNTER 2023-08-26 10:49 | Outpatient (POV) | payer MEDICARE, SELFPAY ==
--- NOTE | 2023-08-26 11:15 | A.OFFVIS_ITS ---
[facility] Pain Management SOAP Note Subjective:: Patient is a pleasant 77-year-old male who presents today for medication refill and follow-up. Today he rates his pain an 4 out of 10. Patient denies any new trauma or injury. He does state that he still doing well with his current medications. He is prescribed oxycodone 10 mg 4 times a day from our office and Flexeril from his primary care. He denies any side effects from this medication. His Nirmal has been reviewed and is appropriate. Review of Systems: General: No recent weight changes, no fever, no sleep disturbances Respiratory: No cough, no shortness of air, no recurring pulmonary infections Cardiovascular/peripheral vascular: No chest pain, no palpitations, no edema, no shortness of breath Gastrointestinal: No new onset incontinence, normal bowel movements reported Genitourinary: No new onset incontinence Musculoskeletal: Low back pain Psychiatric: [Normal mood/affect] Neurological: [Denies weakness in extremities], [denies balance issues] Objective:: Physical Exam: General: Alert and oriented x3, no acute distress, pleasant and cooperative Lungs: Respirations even and unlabored, symmetrical chest expansion Eyes: PERRL Musculoskeletal: Flexion and extension of lumbar [spine] somewhat guarded secondary to pain, [antalgic gait noted] Neurological: Speech clear, no gross sensory deficit Assessment:: Degenerative disc disease of lumbar spine with lumbar radiculopathy symptoms, bilateral shoulder pain Plan:: Patient is doing well with his current medication regimen. I will refill his oxycodone 10 mg 4 times a day and provide a 1 month supply of this medication. Patient will return to clinic in 1 month for reevaluation of symptoms and plan of care. Risks and benefits of the medication have been explained in detail to the patient. The patient does understand the risk of dependence on the medication when given over a prolonged period. Patient has been advised of risks of oversedation with the prescribed medication. Narcan has been offered to the paitent in the event of oversedation. Patient has been advised that a family member should also be educated regarding administration of Narcan. The patient has been advised to consult with his/her primary care provider and pharmacist regarding drug-drug interaction of medications currently prescribed. Patient has been prescribed a controlled substance after being counseled on the medication, medication safety, and possible side effects. Opioid contract was reviewed and signed by the patient, and that they have agreed to all of the term s set forth by our compliance program. Patient has been instructed to contact the clinic with any concerns before the next appointment. Dr. Oleary has reviewed this note and agrees with this plan of care. This note was dictated using voice recognition software and make contain errors or omissions. [facility] Disclaimer: The information contained in this section may have been updated after the patient was seen, as this information can be updated by other users. Social History (Updated 12/05/22 @ 11:03 by Montrell Ta CRNA) Smoking Status: Unknown if ever smoked alcohol intake: never substance use type: denies use current occupational status: other Travel in the last 8 weeks: None
[2023-08-26 11:49] VITALS: BP 163/56; PULSE 71; RESP 18; O2SAT 98; BMI 25.7
== END 2023-08-26 23:59 | disposition home or self-care (01) ==
PROVIDERS: PCP Family Medicine; Visit Provider Nurse Practitioner Family
DX: M51.16 Intervertebral disc disorders with radiculopathy, lumbar region (principal); M25.511 Pain in right shoulder; M25.512 Pain in left shoulder
CPT/HCPCS: 99212; G0463

== ENCOUNTER 2023-09-24 11:06 | Outpatient (POV) | payer MEDICARE, SELFPAY ==
[2023-09-24 11:15] VITALS: BP 152/70; PULSE 64; RESP 16; O2SAT 100; BMI 25.8
--- NOTE | 2023-09-24 11:33 | A.OFFVIS_ITS ---
[facility] Pain Management SOAP Note Subjective:: Patient is a pleasant 77-year-old male who presents today for medication refill and follow-up. Today he rates his pain a 3 out of 10. Patient denies any new trauma or injury. He does state that he still doing well with his current medications. He is prescribed oxycodone 10 mg 4 times a day and Flexeril from his primary care provider. He denies any side effects from these medications. His Nirmal has been reviewed and is appropriate. Review of Systems: General: No recent weight changes, no fever, no sleep disturbances Respiratory: No cough, no shortness of air, no recurring pulmonary infections Cardiovascular/peripheral vascular: No chest pain, no palpitations, no edema, no shortness of breath Gastrointestinal: No new onset incontinence, normal bowel movements reported Genitourinary: No new onset incontinence Musculoskeletal: Low back pain Psychiatric: [Normal mood/affect] Neurological: [Denies weakness in extremities], [denies balance issues] Objective:: Physical Exam: General: Alert and oriented x3, no acute distress, pleasant and cooperative Lungs: Respirations even and unlabored, symmetrical chest expansion Eyes: PERRL Musculoskeletal: Flexion and extension of lumbar [spine] somewhat guarded secondary to pain, [antalgic gait noted] Neurological: Speech clear, no gross sensory deficit Assessment:: Degenerative disc disease of lumbar spine with lumbar radiculopathy symptoms, bilateral shoulder pain, chronic pain syndrome Plan:: I will refill the patient's oxycodone and provide a 1 month supply of this medication. Patient will return to clinic in 1 month for reevaluation of symptoms and plan of care. Patient did mention that his primary care provider is retiring and he will have to find a new one. I have counseled the patient to let us know if he needs any referrals to new providers we be happy to help. Patient acknowledges understanding and agrees with plan of care. Risks and benefits of the medication have been explained in detail to the patient. The patient does understand the risk of dependence on the medication when given over a prolonged period. Patient has been advised of risks of oversedation with the prescribed medication. Narcan has been offered to the paitent in the event of oversedation. Patient has been advised that a family member should also be educated regarding administration of Narcan. The patient has been advised to consult with his/her primary care provider and pharmacist regarding drug-drug interaction of medications currently prescribed. Patient has been prescribed a controlled substance after being counseled on the medication, medication safety, and possible side effects. Opioid contract was reviewed and signed by the patient, and that they have agreed to all of the terms set forth by our compliance program. Patient has been instructed to contact the clinic with any concerns before the next appointment. Dr. Oleary has reviewed this note and agrees with this plan of care. This note was dictated using voice recognition software and make contain errors or omissions. [facility] Disclaimer: The information contained in this section may have been updated after the patient was seen, as this information can be updated by other users. Social History (Updated 12/05/22 @ 11:03 by Montrell Ta CRNA) Smoking Status: Unknown if ever smoked alcohol intake: never substance use type: denies use current occupational status: other Travel in the last 8 weeks: None
== END 2023-09-24 23:59 | disposition home or self-care (01) ==
PROVIDERS: PCP Family Medicine; Visit Provider Nurse Practitioner Family
DX: M51.16 Intervertebral disc disorders with radiculopathy, lumbar region (principal); M25.511 Pain in right shoulder; M25.512 Pain in left shoulder; G89.4 Chronic pain syndrome
CPT/HCPCS: 99212; G0463

== ENCOUNTER 2023-10-26 10:58 | Outpatient (POV) | payer MEDICARE, SELFPAY ==
[2023-10-26 11:06] VITALS: BP 145/76; PULSE 78; RESP 18; O2SAT 98; BMI 26.1
--- NOTE | 2023-10-26 11:19 | EXP.PAIN.SOA ---
[facility] Pain Management SOAP Note Subjective:: Patient is a pleasant 78-year-old male who presents today for medication refill and follow-up. Today he rates his pain a 3 out of 10. Patient denies any new trauma or injury. He does state that he is having more issues with sleeping. Patient is currently prescribed oxycodone 10 mg 4 times a day and Flexeril from his PCP. He does state that he recently did have to change his primary care and he is scheduled for the first appointment with them coming up. This provider is within [facility]. His Nirmal has been reviewed and is appropriate. Review of Systems: General: No recent weight changes, no fever, no sleep disturbances Respiratory: No cough, no shortness of air, no recurring pulmonary infections Cardiovascular/peripheral vascular: No chest pain, no palpitations, no edema, no shortness of breath Gastrointestinal: No new onset incontinence, normal bowel movements reported Genitourinary: No new onset incontinence Musculoskeletal: Low back pain Psychiatric: [Normal mood/affect] Neurological: [Denies weakness in extremities], [denies balance issues] Objective:: Physical Exam: General: Alert and oriented x3, no acute distress, pleasant and cooperative Lungs: Respirations even and unlabored, symmetrical chest expansion Eyes: PERRL Musculoskeletal: Flexion and extension of lumbar [spine] somewhat guarded secondary to pain, [antalgic gait noted] Neurological: Speech clear, no gross sensory deficit Assessment:: Degenerative disc disease of lumbar spine with lumbar radiculopathy symptoms, bilateral shoulder pain, chronic pain syndrome Plan:: I will refill the patient's oxycodone and provide a 1 month supply of this medication. I have discussed with the patient due to the fact that has been on the Flexeril for years that it might not be providing as significant relief. I have counseled the patient to discontinue this medication temporarily and I will send in a 14-day supply of baclofen 10 mg at bedtime. Patient was counseled to contact our office if this medication does end up helping more and if he would like a refill before his next visit. Patient acknowledges understanding and agrees with this plan of care. Patient will return to clinic in 1 month for reevaluation of symptoms and plan of care. Risks and benefits of the medication have been explained in detail to the patient. The patient does understand the risk of dependence on the medication when given over a prolonged period. Patient has been advised of risks of oversedation with the prescribed medication. Narcan has been offered to the paitent in the event of oversedation. Patient has been advised that a family member should also be educated regarding administration of Narcan. The patient has been advised to consult with his/her primary care provider and pharmacist regarding drug-drug interaction of medications currently prescribed. Patient has been prescribed a controlled substance after being counseled on the medication, medication safety, and possible side effects. Opioid contract was reviewed and signed by the patient, and that they have agreed to all of the terms set forth by our compliance program. Patient has been instructed to contact the clinic with any concerns before the next appointment. Dr. Oleary has reviewed this note and agrees with this plan of care. This note was dictated using voice recognition software and make contain errors or omissions. [facility] Disclaimer: The information contained in this section may have been updated after the patient was seen, as this information can be updated by other users. Social History Smoking Status: Unknown if ever smoked alcohol intake: never substance use type: denies use current occupational status: other Travel in the last 8 weeks: None
[2023-10-26 13:42] LABS: Amphetamine/Metha Screen,Urine Negative ng/ml (<1000); Barbiturates Screen,Urine Negative ng/ml (<200)
[2023-10-26 13:43] LABS: Benzodiazepines Screen,Urine Negative ng/ml (<200); Cannabinoid Screen,Urine Negative ng/ml (<50)
[2023-10-26 13:44] LABS: Cocaine Screen,Urine Negative ng/ml (<300)
[2023-10-26 13:45] LABS: Methadone Screen,Urine Negative ng/ml (<300); Opiate Screen,Urine Negative ng/ml (<300)
[2023-10-26 13:46] LABS: Phencyclidine Screen,Urine Negative ng/ml (<25)
[2023-10-30 12:04] LABS: Opiates Negative (Cutoff=100); Oxycodone (GC/MS) 1627 ng/mL (Cutoff=100); Oxymorphone (GC/MS) 191 ng/mL (Cutoff=100)
== END 2023-10-26 23:59 | disposition home or self-care (01) ==
PROVIDERS: PCP Family Medicine; Visit Provider Nurse Practitioner Family
DX: Z79.891 Long term (current) use of opiate analgesic (principal); M51.16 Intervertebral disc disorders with radiculopathy, lumbar region; M25.511 Pain in right shoulder; M25.512 Pain in left shoulder; G89.4 Chronic pain syndrome
CPT/HCPCS: 80307; 80361; 80365; 99212; G0463; G0480

== ENCOUNTER 2023-11-30 13:02 | Outpatient (POV) | payer MEDICARE, SELFPAY ==
[2023-11-30 13:17] VITALS: BP 120/57; PULSE 67; RESP 16; O2SAT 100; BMI 24.6
--- NOTE | 2023-11-30 13:29 | EXP.PAIN.SOA ---
[facility] Disclaimer: The information contained in this section may have been updated after the patient was seen, as this information can be updated by other users. Social History Smoking Status: Unknown if ever smoked alcohol intake: never substance use type: denies use current occupational status: other Travel in the last 8 weeks: None PM Subjective & Objective Subjective Subjective:: Patient is a pleasant 78-year-old male who presents today for medication refill and follow-up. Today he rates his pain a 4 out of 10. He denies any new trauma or injury. Patient does state that he did not notice any significant improvement with the addition of the baclofen at our last visit. Patient states he is still having issues with sleeping and did officially run out of his Ambien prescription. Patient states that he has gotten scheduled for a new primary care but is not got the appointment until December. Patient is currently managed with oxycodone 10 mg 4 times a day from our office and Flexeril from his PCP. His Nirmal has been reviewed and is appropriate. Review of Systems: General: No recent weight changes, no fever, no sleep disturbances Respiratory: No cough, no shortness of air, no recurring pulmonary infections Cardiovascular/peripheral vascular: No chest pain, no palpitations, no edema, no shortness of breath Gastrointestinal: No new onset incontinence, normal bowel movements reported Genitourinary: No new onset incontinence Musculoskeletal: Low back pain Psychiatric: [Normal mood/affect] Neurological: [Denies weakness in extremities], [denies balance issues] Pain at rest (0-10 scale): 4 Objective Objective:: Physical Exam: General: Alert and oriented x3, no acute distress, pleasant and cooperative Lungs: Respirations even and unlabored, symmetrical chest expansion Eyes: PERRL Musculoskeletal: Flexion and extension of lumbar [spine] somewhat guarded secondary to pain, [antalgic gait noted] Neurological: Speech clear, no gross sensory deficit Has patient had previous pain injection?: No Conservative treatment options previously tried: Prescription medications Length of treatment: Longer than 6 weeks Meds Home Medications and Allergies Home Medications Medication Instructions Recorded Confirmed Type amlodipine 2.5 mg tablet 2.5 mg PO DAILY blood pressure 12/12/20 11/30/23 History atorvastatin 40 mg tablet 40 mg PO HS Cholesterol 12/12/20 11/30/23 History dapagliflozin propanediol 5 mg 5 mg PO DAILY Diabetes 12/12/20 11/30/23 History tablet isosorbide mononitrate 30 mg 30 mg PO DAILY blood pressure 12/12/20 11/30/23 History tablet,extended release 24 hr lisinopril 10 mg tablet 10 mg PO DAILY blood pressure 12/12/20 11/30/23 History metformin 1,000 mg tablet 1,000 mg PO BID Diabetes 12/12/20 11/30/23 History metoprolol succinate 50 mg 50 mg PO DAILY blood pressure 12/12/20 11/30/23 History tablet,extended release 24 hr omeprazole 20 mg tablet,delayed 20 mg PO DAILY GERD 12/12/20 11/30/23 History release sitagliptin phosphate 50 1 each PO BID Diabetes 12/12/20 11/30/23 History mg-metformin 1,000 mg tablet ticagrelor 90 mg tablet 90 mg PO BID Blood thinner 12/12/20 11/30/23 History zolpidem 10 mg tablet 10 mg PO HS sleep aid 01/09/22 11/30/23 History meloxicam 15 mg tablet 15 mg PO DAILY Pain #30 tabs 08/06/22 11/30/23 Rx tizanidine 4 mg tablet (Zanaflex) 4 mg PO HS Pain 12/05/22 11/30/23 History prednisone 20 mg tablet 20 mg PO BID #10 tabs 04/29/23 11/30/23 Rx baclofen 10 mg tablet 10 mg PO HS #14 tabs 10/26/23 11/30/23 Rx oxycodone 10 mg tablet 10 mg PO QID Pain #120 tabs 10/26/23 11/30/23 Rx oxycodone 10 mg tablet 10 mg PO QID PRN pain #28 tabs 11/18/23 11/30/23 Rx New Prescriptions to Start Prescriptions: Allergies Allergy/AdvReac Type Severity Reaction Status Date / Time No Known Drug Allergies Allergy Verified 04/17/21 11:51 Assessment and Plan *Assessment and plan (1) Degenerative disc disease, lumbar: Status: Acute Category: Medical Code(s): M51.36 - Other intervertebral disc degeneration, lumbar region (2) Lumbar radiculopathy: Status: Acute Category: Medical Code(s): M54.16 - Radiculopathy, lumbar region (3) Bilateral shoulder pain: Status: Acute Qualifiers: Chronicity: chronic Qualified Code(s): M25.511 - Pain in right shoulder; M25.512 - Pain in left shoulder; G89.29 - Other chronic pain Category: Medical Code(s): M25.511 - Pain in right shoulder; M25.512 - Pain in left shoulder (4) Chronic pain syndrome: Status: Acute Category: Medical Code(s): G89.4 - Chronic pain syndrome Plan I will refill the patient's oxycodone and provide a 1 month supply of this medication. I have counseled the patient to reach out to his prior PCP and see if they would send in an additional month supply of his Ambien. Patient did have to change providers due to his last provider retiring. Patient is agreeable to this option. We will follow-up at future visits. Patient will return to clinic in 1 month for reevaluation of symptoms and plan of care. Risks and benefits of the medication have been explained in detail to the patient. The patient does understand the risk of dependence on the medication when given over a prolonged period. Patient has been advised of risks of oversedation with the prescribed medication. Narcan has been offered to the paitent in the event of oversedation. Patient has been advised that a family member should also be educated regarding administration of Narcan. The patient has been advised to consult with his/her primary care provider and pharmacist regarding drug-drug interaction of medications currently prescribed. Patient has been prescribed a controlled substance after being counseled on the medication, medication safety, and possible side effects. Opioid contract was reviewed and signed by the patient, and that they have agreed to all of the terms set forth by our compliance program. Patient has been instructed to contact the clinic with any concerns before the next appointment. Dr. Oleary has reviewed this note and agrees with this plan of care. This note was dictated using voice recognition software and make contain errors or omissions.
== END 2023-11-30 23:59 | disposition home or self-care (01) ==
PROVIDERS: PCP Family Medicine; Visit Provider Nurse Practitioner Family
DX: M51.36 Other intervertebral disc degeneration, lumbar region (principal); M54.16 Radiculopathy, lumbar region; M25.511 Pain in right shoulder; M25.512 Pain in left shoulder; G89.4 Chronic pain syndrome
CPT/HCPCS: 99212; G0463

== ENCOUNTER 2023-12-28 11:22 | Outpatient (POV) | payer MEDICARE, SELFPAY ==
[2023-12-28 11:27] VITALS: BP 137/56; PULSE 72; RESP 16; O2SAT 99; BMI 23.6
--- NOTE | 2023-12-28 11:31 | A.OFFVIS_ITS ---
[facility] Disclaimer: The information contained in this section may have been updated after the patient was seen, as this information can be updated by other users. Social History Smoking Status: Unknown if ever smoked alcohol intake: never substance use type: denies use current occupational status: retired Travel in the last 8 weeks: None PM Subjective & Objective Subjective Subjective:: Patient is a pleasant 78-year-old male who presents today for 1 month follow-up and medication refill. Today he rates his pain a 5 out of 10. Patient denies any new trauma or injury. He does state from her last visit he ended up having to have a heart cath with 1 stent placed. He does state that he did not really notice much difference still has a lot of fatigue however he is still not gotten his prescription taken over of his Ambien. He states he is scheduled to see his primary care tomorrow and is hoping that they will take this prescription on. Patient has been on the Ambien for years and just had to be discontinued due to his PCP changing. Patient has prescribed oxycodone 10 mg 4 times a day from our office and Flexeril from an outside provider. He denies any side effects from this medication. His Nirmal has been reviewed and is appropriate. Review of Systems: General: No recent weight changes, no fever, no sleep disturbances Respiratory: No cough, no shortness of air, no recurring pulmonary infections Cardiovascular/peripheral vascular: No chest pain, no palpitations, no edema, no shortness of breath Gastrointestinal: No new onset incontinence, normal bowel movements reported Genitourinary: No new onset incontinence Musculoskeletal: Low back pain Psychiatric: [Normal mood/affect] Neurological: [Denies weakness in extremities], [denies balance issues] Pain at rest (0-10 scale): 5 Objective Objective:: Physical Exam: General: Alert and oriented x3, no acute distress, pleasant and cooperative Lungs: Respirations even and unlabored, symmetrical chest expansion Eyes: PERRL Musculoskeletal: Flexion and extension of lumbar [spine] somewhat guarded secondary to pain, [antalgic gait noted] Neurological: Speech clear, no gross sensory deficit Has patient had previous pain injection?: No Conservative treatment options previously tried: Prescription medications Length of treatment: Longer than 6 weeks Meds Home Medications and Allergies Home Medications ?Medication ?Instructions ?Recorded ?Confirmed ?Type amlodipine 2.5 mg tablet 2.5 mg PO DAILY blood pressure 12/12/20 12/28/23 History atorvastatin 40 mg tablet 40 mg PO HS Cholesterol 12/12/20 12/28/23 History dapagliflozin propanediol 5 mg 5 mg PO DAILY Diabetes 12/12/20 12/28/23 History tablet isosorbide mononitrate 30 mg 30 mg PO DAILY blood pressure 12/12/20 12/28/23 History tablet,extended release 24 hr lisinopril 10 mg tablet 10 mg PO DAILY blood pressure 12/12/20 12/28/23 History metformin 1,000 mg tablet 1,000 mg PO BID Diabetes 12/12/20 12/28/23 History metoprolol succinate 50 mg 50 mg PO DAILY blood pressure 12/12/20 12/28/23 History tablet,extended release 24 hr omeprazole 20 mg tablet,delayed 20 mg PO DAILY GERD 12/12/20 12/28/23 History release sitagliptin phosphate 50 1 each PO BID Diabetes 12/12/20 12/28/23 History mg-metformin 1,000 mg tablet ticagrelor 90 mg tablet 90 mg PO BID Blood thinner 12/12/20 12/28/23 History zolpidem 10 mg tablet 10 mg PO HS sleep aid 01/09/22 12/28/23 History meloxicam 15 mg tablet 15 mg PO DAILY Pain #30 tabs 08/06/22 12/28/23 Rx tizanidine 4 mg tablet (Zanaflex) 4 mg PO HS Pain 12/05/22 12/28/23 History prednisone 20 mg tablet 20 mg PO BID #10 tabs 04/29/23 12/28/23 Rx baclofen 10 mg tablet 10 mg PO HS #14 tabs 10/26/23 12/28/23 Rx oxycodone 10 mg tablet 10 mg PO QID PRN pain #28 tabs 11/18/23 12/28/23 Rx oxycodone 10 mg tablet 10 mg PO QID Pain #120 tabs 11/30/23 12/28/23 Rx New Prescriptions to Start Prescriptions: Allergies Allergy/AdvReac Type Severity Reaction Status Date / Time No Known Drug Allergies Allergy Verified 04/17/21 11:51 Assessment and Plan *Assessment and plan (1) Lumbar radiculopathy: Status: Acute Category: Medical Code(s): M54.16 - Radiculopathy, lumbar region (2) Degenerative disc disease, lumbar: Status: Acute Category: Medical Code(s): M51.36 - Other intervertebral disc degeneration, lumbar region Plan I will refill the patient's oxycodone and provide 1 month supply of these medications. Patient will return to clinic in 1 month for reevaluation of symptoms and plan of care. Risks and benefits of the medication have been explained in detail to the patient. The patient does understand the risk of dependence on the medication when given over a prolonged period. Patient has been advised of risks of oversedation with the prescribed medication. Narcan has been offered to the paitent in the event of oversedation. Patient has been advised that a family member should also be educated regarding administration of Narcan. The patient has been advised to consult with his/her primary care provider and pharmacist regarding drug-drug interaction of medications currently prescribed. Patient has been prescribed a controlled substance after being counseled on the medication, medication safety, and possible side effects. Opioid contract was reviewed and signed by the patient, and that they have agreed to all of the terms set forth by our compliance program. Patient has been instructed to contact the clinic with any concerns before the next appointment. Dr. Oleary has reviewed this note and agrees with this plan of care. This note was dictated using voice recognition software and make contain errors or omissions.
== END 2023-12-28 23:59 | disposition home or self-care (01) ==
PROVIDERS: PCP Family Medicine; Visit Provider Nurse Practitioner Family
DX: M51.16 Intervertebral disc disorders with radiculopathy, lumbar region (principal); Z79.899 Other long term (current) drug therapy; Z95.5 Presence of coronary angioplasty implant and graft
CPT/HCPCS: 99212; G0463

== ENCOUNTER 2024-02-25 11:23 | Outpatient (POV) | payer MEDICARE, SELFPAY ==
--- NOTE | 2024-02-25 11:28 | EXP.PAIN.SOA ---
[facility] Disclaimer: The information contained in this section may have been updated after the patient was seen, as this information can be updated by other users. Medical History (Updated 02/03/24 @ 11:53 by Mela Rosen RN) Hypertension Social History Smoking Status: Unknown if ever smoked alcohol intake: never substance use type: denies use current occupational status: other Travel in the last 8 weeks: None PM Subjective & Objective Subjective Subjective:: Patient is a pleasant 78-year-old male who presents today for medication refill. Today he rates his pain a 5 out of 10. He denies any new trauma or injury. He does state from our last visit he never ended up calling over to Dr. Nayak's office however he is still planning on making a point to go there to see about getting the Ambien started back. He is currently managed with oxycodone 10 mg 4 times a day from our office and Flexeril from an outside provider. He denies any side effects from this medication. his Nirmal has been reviewed and is appropriate. Review of Systems: General: No recent weight changes, no fever, no sleep disturbances Respiratory: No cough, no shortness of air, no recurring pulmonary infections Cardiovascular/peripheral vascular: No chest pain, no palpitations, no edema, no shortness of breath Gastrointestinal: No new onset incontinence, normal bowel movements reported Genitourinary: No new onset incontinence Musculoskeletal: Low back pain Psychiatric: [Normal mood/affect] Neurological: [Denies weakness in extremities], [denies balance issues] Pain at rest (0-10 scale): 5 Objective Objective:: Physical Exam: General: Alert and oriented x3, no acute distress, pleasant and cooperative Lungs: Respirations even and unlabored, symmetrical chest expansion Eyes: PERRL Musculoskeletal: Flexion and extension of lumbar [spine] somewhat guarded secondary to pain, [antalgic gait noted] Neurological: Speech clear, no gross sensory deficit Has patient had previous pain injection?: No Conservative treatment options previously tried: Home exercise plan Length of treatment: Longer than 12 weeks Meds Home Medications and Allergies Home Medications ?Medication ?Instructions ?Recorded ?Confirmed ?Type amlodipine 2.5 mg tablet 2.5 mg PO DAILY blood pressure 12/12/20 12/28/23 History atorvastatin 40 mg tablet 40 mg PO HS Cholesterol 12/12/20 12/28/23 History dapagliflozin propanediol 5 mg 5 mg PO DAILY Diabetes 12/12/20 12/28/23 History tablet isosorbide mononitrate 30 mg 30 mg PO DAILY blood pressure 12/12/20 12/28/23 History tablet,extended release 24 hr lisinopril 10 mg tablet 10 mg PO DAILY blood pressure 12/12/20 12/28/23 History metformin 1,000 mg tablet 1,000 mg PO BID Diabetes 12/12/20 12/28/23 History metoprolol succinate 50 mg 50 mg PO DAILY blood pressure 12/12/20 12/28/23 History tablet,extended release 24 hr omeprazole 20 mg tablet,delayed 20 mg PO DAILY GERD 12/12/20 12/28/23 History release sitagliptin phosphate 50 1 each PO BID Diabetes 12/12/20 12/28/23 History mg-metformin 1,000 mg tablet ticagrelor 90 mg tablet 90 mg PO BID Blood thinner 12/12/20 12/28/23 History zolpidem 10 mg tablet 10 mg PO HS sleep aid 01/09/22 12/28/23 History meloxicam 15 mg tablet 15 mg PO DAILY Pain #30 tabs 08/06/22 12/28/23 Rx tizanidine 4 mg tablet (Zanaflex) 4 mg PO HS Pain 12/05/22 12/28/23 History prednisone 20 mg tablet 20 mg PO BID #10 tabs 04/29/23 12/28/23 Rx baclofen 10 mg tablet 10 mg PO HS #14 tabs 10/26/23 12/28/23 Rx oxycodone 10 mg tablet 10 mg PO QID PRN pain #28 tabs 11/18/23 12/28/23 Rx oxycodone 10 mg tablet 10 mg PO QID Pain #120 tabs 12/28/23 Rx oxycodone 10 mg tablet 10 mg PO Q6H PRN pain #120 tabs 02/03/24 Rx New Prescriptions to Start Prescriptions: Allergies Allergy/AdvReac Type Severity Reaction Status Date / Time No Known Drug Allergies Allergy Verified 04/17/21 11:51 Assessment and Plan *Assessment and plan (1) Chronic pain syndrome: Status: Acute Category: Medical Code(s): G89.4 - Chronic pain syndrome (2) Bilateral shoulder pain: Status: Acute Qualifiers: Chronicity: chronic Qualified Code(s): M25.511 - Pain in right shoulder; M25.512 - Pain in left shoulder; G89.29 - Other chronic pain Category: Medical Code(s): M25.511 - Pain in right shoulder; M25.512 - Pain in left shoulder (3) Lumbar radiculopathy: Status: Acute Category: Medical Code(s): M54.16 - Radiculopathy, lumbar region (4) Degenerative disc disease, lumbar: Status: Acute Category: Medical Code(s): M51.36 - Other intervertebral disc degeneration, lumbar region Plan We will refill the patient's oxycodone and provide a 1 month supply of this medication. Patient will return to clinic in 1 month for reevaluation of symptoms and plan of care. Risks and benefits of the medication have been explained in detail to the patient. The patient does understand the risk of dependence on the medication when given over a prolonged period. Patient has been advised of risks of oversedation with the prescribed medication. Narcan has been offered to the paitent in the event of oversedation. Patient has been advised that a family member should also be educated regarding administration of Narcan. The patient has been advised to consult with his/her primary care provider and pharmacist regarding drug-drug interaction of medications currently prescribed. Patient has been prescribed a controlled substance after being counseled on the medication, medication safety, and possible side effects. Opioid contract was reviewed and signed by the patient, and that they have agreed to all of the terms set forth by our compliance program. Patient has been instructed to contact the clinic with any concerns before the next appointment. Dr. Oleary has reviewed this note and agrees with this plan of care. This note was dictated using voice recognition software and make contain errors or omissions.
[2024-02-25 11:48] VITALS: BP 122/51; PULSE 66; RESP 16; O2SAT 100; BMI 24.6
== END 2024-02-25 23:59 | disposition home or self-care (01) ==
PROVIDERS: PCP Family Medicine; Visit Provider Nurse Practitioner Family
DX: G89.4 Chronic pain syndrome (principal); M25.511 Pain in right shoulder; M25.512 Pain in left shoulder; M51.16 Intervertebral disc disorders with radiculopathy, lumbar region; Z79.899 Other long term (current) drug therapy
CPT/HCPCS: 99212; G0463

== ENCOUNTER 2024-03-28 10:43 | Outpatient (POV) | payer MEDICARE, SELFPAY ==
[2024-03-28 11:03] VITALS: BP 139/79; PULSE 72; RESP 18; O2SAT 100; BMI 24.5
--- NOTE | 2024-03-28 11:08 | EXP.PAIN.SOA ---
[facility] Disclaimer: The information contained in this section may have been updated after the patient was seen, as this information can be updated by other users. Medical History (Updated 02/03/24 @ 11:53 by Mela Rosen RN) Hypertension Social History Smoking Status: Unknown if ever smoked alcohol intake: never substance use type: denies use current occupational status: other Travel in the last 8 weeks: None PM Subjective & Objective Subjective Subjective:: Patient is a pleasant 78-year-old male who presents today for medication refill and follow-up. Today he rates his pain a 5 out of 10. He denies any new change from our last visit. He does state that he tried to go over to Dr. Nayak's office last visit however they were closed for lunch. He does state that he is hoping to get over there today to catch them to see about making a new patient appointment. He is currently manage with oxycodone 10 mg 4 times a day from our office and Flexeril from an outside provider. His Nirmal has been reviewed and is appropriate. Review of Systems: General: No recent weight changes, no fever, no sleep disturbances Respiratory: No cough, no shortness of air, no recurring pulmonary infections Cardiovascular/peripheral vascular: No chest pain, no palpitations, no edema, no shortness of breath Gastrointestinal: No new onset incontinence, normal bowel movements reported Genitourinary: No new onset incontinence Musculoskeletal: Low back pain Psychiatric: [Normal mood/affect] Neurological: [Denies weakness in extremities], [denies balance issues] Pain at rest (0-10 scale): 5 Objective Objective:: Physical Exam: General: Alert and oriented x3, no acute distress, pleasant and cooperative Lungs: Respirations even and unlabored, symmetrical chest expansion Eyes: PERRL Musculoskeletal: Flexion and extension of lumbar [spine] somewhat guarded secondary to pain, [antalgic gait noted] Neurological: Speech clear, no gross sensory deficit Has patient had previous pain injection?: No Conservative treatment options previously tried: Home exercise plan Length of treatment: Longer than 12-week Meds Home Medications and Allergies Home Medications ?Medication ?Instructions ?Recorded ?Confirmed ?Type amlodipine 2.5 mg tablet 2.5 mg PO DAILY blood pressure 12/12/20 02/25/24 History atorvastatin 40 mg tablet 40 mg PO HS Cholesterol 12/12/20 02/25/24 History dapagliflozin propanediol 5 mg 5 mg PO DAILY Diabetes 12/12/20 02/25/24 History tablet isosorbide mononitrate 30 mg 30 mg PO DAILY blood pressure 12/12/20 02/25/24 History tablet,extended release 24 hr lisinopril 10 mg tablet 10 mg PO DAILY blood pressure 12/12/20 02/25/24 History metformin 1,000 mg tablet 1,000 mg PO BID Diabetes 12/12/20 02/25/24 History metoprolol succinate 50 mg 50 mg PO DAILY blood pressure 12/12/20 02/25/24 History tablet,extended release 24 hr omeprazole 20 mg tablet,delayed 20 mg PO DAILY GERD 12/12/20 02/25/24 History release sitagliptin phosphate 50 1 each PO BID Diabetes 12/12/20 02/25/24 History mg-metformin 1,000 mg tablet ticagrelor 90 mg tablet 90 mg PO BID Blood thinner 12/12/20 02/25/24 History zolpidem 10 mg tablet 10 mg PO HS sleep aid 01/09/22 02/25/24 History meloxicam 15 mg tablet 15 mg PO DAILY Pain #30 tabs 08/06/22 02/25/24 Rx tizanidine 4 mg tablet (Zanaflex) 4 mg PO HS Pain 12/05/22 02/25/24 History prednisone 20 mg tablet 20 mg PO BID #10 tabs 04/29/23 02/25/24 Rx baclofen 10 mg tablet 10 mg PO HS #14 tabs 10/26/23 02/25/24 Rx oxycodone 10 mg tablet 10 mg PO QID PRN pain #28 tabs 11/18/23 02/25/24 Rx oxycodone 10 mg tablet 10 mg PO QID Pain #120 tabs 12/28/23 02/25/24 Rx oxycodone 10 mg tablet 10 mg PO Q6H PRN pain #120 tabs 02/25/24 Rx New Prescriptions to Start Prescriptions: Allergies Allergy/AdvReac Type Severity Reaction Status Date / Time No Known Drug Allergies Allergy Verified 04/17/21 11:51 Assessment and Plan *Assessment and plan (1) Degenerative disc disease, lumbar: Status: Acute Category: Medical Code(s): M51.36 - Other intervertebral disc degeneration, lumbar region (2) Lumbar radiculopathy: Status: Acute Category: Medical Code(s): M54.16 - Radiculopathy, lumbar region (3) Chronic pain syndrome: Status: Acute Category: Medical Code(s): G89.4 - Chronic pain syndrome (4) Bilateral shoulder pain: Status: Acute Qualifiers: Chronicity: chronic Qualified Code(s): M25.511 - Pain in right shoulder; M25.512 - Pain in left shoulder; G89.29 - Other chronic pain Category: Medical Code(s): M25.511 - Pain in right shoulder; M25.512 - Pain in left shoulder Plan We will refill the patient's oxycodone and provide a 1 month supply of this medication. Patient will return to clinic in 1 month for reevaluation of symptoms and plan of care. Risks and benefits of the medication have been explained in detail to the patient. The patient does understand the risk of dependence on the medication when given over a prolonged period. Patient has been advised of risks of oversedation with the prescribed medication. Narcan has been offered to the paitent in the event of oversedation. Patient has been advised that a family member should also be educated regarding administration of Narcan. The patient has been advised to consult with his/her primary care provider and pharmacist regarding drug-drug interaction of medications currently prescribed. Patient has been prescribed a controlled substance after being counseled on the medication, medication safety, and possible side effects. Opioid contract was reviewed and signed by the patient, and that they have agreed to all of the terms set forth by our compliance program. Patient has been instructed to contact the clinic with any concerns before the next appointment. Dr. Oleary has reviewed this note and agrees with this plan of care. This note was dictated using voice recognition software and make contain errors or omissions.
== END 2024-03-28 23:59 | disposition home or self-care (01) ==
PROVIDERS: Visit Provider Nurse Practitioner Family
DX: G89.4 Chronic pain syndrome; M25.511 Pain in right shoulder; M25.512 Pain in left shoulder; M51.16 Intervertebral disc disorders with radiculopathy, lumbar region; Z79.899 Other long term (current) drug therapy
CPT/HCPCS: 99212; G0463

== ENCOUNTER 2024-04-25 11:12 | Outpatient (POV) | payer MEDICARE, SELFPAY ==
--- NOTE | 2024-04-25 11:56 | EXP.PAIN.SOA ---
[facility] Disclaimer: The information contained in this section may have been updated after the patient was seen, as this information can be updated by other users. 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 Today he rates his pain a 5 out of 10. Patient denies any new trauma or injury. He does state that he is still not gotten in to Dr. Nayak's office for primary care evaluation. Patient does state that he is sleeping better and last night he was worn out and did seem like he did okay without his Ambien. Patient is currently managed with oxycodone 10 mg 4 times a day from our office. He denies any side effects from this medication. His Nirmal has been reviewed and is appropriate. Review of Systems: General: No recent weight changes, no fever, no sleep disturbances Respiratory: No cough, no shortness of air, no recurring pulmonary infections Cardiovascular/peripheral vascular: No chest pain, no palpitations, no edema, no shortness of breath Gastrointestinal: No new onset incontinence, normal bowel movements reported Genitourinary: No new onset incontinence Musculoskeletal: Low back pain Psychiatric: [Normal mood/affect] Neurological: [Denies weakness in extremities], [denies balance issues] Pain at rest (0-10 scale): 5 Objective Objective:: Physical Exam: General: Alert and oriented x3, no acute distress, pleasant and cooperative Lungs: Respirations even and unlabored, symmetrical chest expansion Eyes: PERRL Musculoskeletal: Flexion and extension of lumbar [spine] somewhat guarded secondary to pain, [antalgic gait noted] Neurological: Speech clear, no gross sensory deficit Has patient had previous pain injection?: No Conservative treatment options previously tried: Prescription medications Length of treatment: Longer than 12 weeks Meds Home Medications and Allergies Home Medications ?Medication ?Instructions ?Recorded ?Confirmed ?Type amlodipine 2.5 mg tablet 2.5 mg PO DAILY blood pressure 12/12/20 03/28/24 History atorvastatin 40 mg tablet 40 mg PO HS Cholesterol 12/12/20 03/28/24 History dapagliflozin propanediol 5 mg 5 mg PO DAILY Diabetes 12/12/20 03/28/24 History tablet isosorbide mononitrate 30 mg 30 mg PO DAILY blood pressure 12/12/20 03/28/24 History tablet,extended release 24 hr lisinopril 10 mg tablet 10 mg PO DAILY blood pressure 12/12/20 03/28/24 History metformin 1,000 mg tablet 1,000 mg PO BID Diabetes 12/12/20 03/28/24 History metoprolol succinate 50 mg 50 mg PO DAILY blood pressure 12/12/20 03/28/24 History tablet,extended release 24 hr omeprazole 20 mg tablet,delayed 20 mg PO DAILY GERD 12/12/20 03/28/24 History release sitagliptin phosphate 50 1 each PO BID Diabetes 12/12/20 03/28/24 History mg-metformin 1,000 mg tablet ticagrelor 90 mg tablet 90 mg PO BID Blood thinner 12/12/20 03/28/24 History zolpidem 10 mg tablet 10 mg PO HS sleep aid 01/09/22 03/28/24 History meloxicam 15 mg tablet 15 mg PO DAILY Pain #30 tabs 08/06/22 03/28/24 Rx tizanidine 4 mg tablet (Zanaflex) 4 mg PO HS Pain 12/05/22 03/28/24 History prednisone 20 mg tablet 20 mg PO BID #10 tabs 04/29/23 03/28/24 Rx baclofen 10 mg tablet 10 mg PO HS #14 tabs 10/26/23 03/28/24 Rx oxycodone 10 mg tablet 10 mg PO QID PRN pain #120 tabs 03/28/24 Rx New Prescriptions to Start Prescriptions: Allergies Allergy/AdvReac Type Severity Reaction Status Date / Time No Known Drug Allergies Allergy Verified 04/17/21 11:51 Assessment and Plan *Assessment and plan (1) Lumbar radiculopathy: Status: Acute Category: Medical Code(s): M54.16 - Radiculopathy, lumbar region (2) Degenerative disc disease, lumbar: Status: Acute Category: Medical Code(s): M51.36 - Other intervertebral disc degeneration, lumbar region Plan We will refill the patient's oxycodone and provide a 1 month supply of this medication. Patient will return to clinic in 1 month for reevaluation of symptoms and plan of care. Risks and benefits of the medication have been explained in detail to the patient. The patient does understand the risk of dependence on the medication when given over a prolonged period. Patient has been advised of risks of oversedation with the prescribed medication. Narcan has been offered to the paitent in the event of oversedation. Patient has been advised that a family member should also be educated regarding administration of Narcan. The patient has been advised to consult with his/her primary care provider and pharmacist regarding drug-drug interaction of medications currently prescribed. Patient has been prescribed a controlled substance after being counseled on the medication, medication safety, and possible side effects. Opioid contract was reviewed and signed by the patient, and that they have agreed to all of the terms set forth by our compliance program. Patient has been instructed to contact the clinic with any concerns before the next appointment. Dr. Oleary has reviewed this note and agrees with this plan of care. This note was dictated using voice recognition software and make contain errors or omissions.
[2024-04-25 12:51] VITALS: BP 123/66; PULSE 76; RESP 16; O2SAT 97; BMI 24.2
== END 2024-04-25 23:59 | disposition home or self-care (01) ==
PROVIDERS: Visit Provider Nurse Practitioner Family
DX: M51.16 Intervertebral disc disorders with radiculopathy, lumbar region (principal)
CPT/HCPCS: 99212; G0463

== ENCOUNTER 2024-05-26 11:33 | Outpatient (POV) | payer MEDICARE, SELFPAY ==
--- NOTE | 2024-05-26 12:04 | EXP.PAIN.SOA ---
[facility] Disclaimer: The information contained in this section may have been updated after the patient was seen, as this information can be updated by other users. Medical History (Updated 02/03/24 @ 11:53 by Mela Rosen RN) Hypertension Social History Smoking Status: Unknown if ever smoked alcohol intake: never substance use type: denies use current occupational status: other Travel in the last 8 weeks: None Have you lived/traveled outside [place] in past 30 days?: No Contact w/someone who lives/traveled outside US past 30 days?: No Exposure to someone with infectious disease in past 14 days?: No Do you have a fever (greater than 100.4 F or 38 C)?: No Have you tested positive for COVID-19: No Exposed to someone with COVID-19 in past 14 days?: No Do you have a sore throat?: No Do you have a cough?: No Do you have any weakness?: No Do you have any diarrhea?: No Are you experiencing any unusual bleeding?: No Do you have any muscle aches/pain?: No Do you have any abdominal pain?: No Are you experiencing loss of taste or smell?: No PM Subjective & Objective Subjective Subjective:: Patient is a pleasant 78-year-old male who presents today for monthly medication refill. Today he rates his pain a 4 out of 10. He denies any new changes from her last appointment. He does state that he has now gotten and at a local clinic to set up as his primary care and they have restarted his medications. He states he is just doing an [id number] sleep aid and it does seem to be helping. Patient is managed with oxycodone 10 mg 4 times a day from our office. He denies any side effects from this medication. His Nirmal has been reviewed and is appropriate. Review of Systems: General: No recent weight changes, no fever, no sleep disturbances Respiratory: No cough, no shortness of air, no recurring pulmonary infections Cardiovascular/peripheral vascular: No chest pain, no palpitations, no edema, no shortness of breath Gastrointestinal: No new onset incontinence, normal bowel movements reported Genitourinary: No new onset incontinence Musculoskeletal: Low back pain Psychiatric: [Normal mood/affect] Neurological: [Denies weakness in extremities], [denies balance issues] Pain at rest (0-10 scale): 4 Objective Objective:: Physical Exam: General: Alert and oriented x3, no acute distress, pleasant and cooperative Lungs: Respirations even and unlabored, symmetrical chest expansion Eyes: PERRL Musculoskeletal: Flexion and extension of lumbar [spine] somewhat guarded secondary to pain, [antalgic gait noted] Neurological: Speech clear, no gross sensory deficit Has patient had previous pain injection?: No Conservative treatment options previously tried: Prescription medications Length of treatment: Longer than 12 weeks Meds Home Medications and Allergies Home Medications ?Medication ?Instructions ?Recorded ?Confirmed ?Type amlodipine 2.5 mg tablet 2.5 mg PO DAILY blood pressure 12/12/20 04/25/24 History atorvastatin 40 mg tablet 40 mg PO HS Cholesterol 12/12/20 04/25/24 History dapagliflozin propanediol 5 mg 5 mg PO DAILY Diabetes 12/12/20 04/25/24 History tablet isosorbide mononitrate 30 mg 30 mg PO DAILY blood pressure 12/12/20 04/25/24 History tablet,extended release 24 hr lisinopril 10 mg tablet 10 mg PO DAILY blood pressure 12/12/20 04/25/24 History metformin 1,000 mg tablet 1,000 mg PO BID Diabetes 12/12/20 04/25/24 History metoprolol succinate 50 mg 50 mg PO DAILY blood pressure 12/12/20 04/25/24 History tablet,extended release 24 hr omeprazole 20 mg tablet,delayed 20 mg PO DAILY GERD 12/12/20 04/25/24 History release sitagliptin phosphate 50 1 each PO BID Diabetes 12/12/20 04/25/24 History mg-metformin 1,000 mg tablet ticagrelor 90 mg tablet 90 mg PO BID Blood thinner 12/12/20 04/25/24 History zolpidem 10 mg tablet 10 mg PO HS sleep aid 01/09/22 04/25/24 History meloxicam 15 mg tablet 15 mg PO DAILY Pain #30 tabs 08/06/22 04/25/24 Rx tizanidine 4 mg tablet (Zanaflex) 4 mg PO HS Pain 12/05/22 04/25/24 History prednisone 20 mg tablet 20 mg PO BID #10 tabs 04/29/23 04/25/24 Rx baclofen 10 mg tablet 10 mg PO HS #14 tabs 10/26/23 04/25/24 Rx oxycodone 10 mg tablet 10 mg PO QID PRN pain #120 tabs 04/25/24 Rx New Prescriptions to Start Prescriptions: Allergies Allergy/AdvReac Type Severity Reaction Status Date / Time No Known Drug Allergies Allergy Verified 04/17/21 11:51 Assessment and Plan *Assessment and plan (1) Chronic pain syndrome: Status: Acute Category: Medical Code(s): G89.4 - Chronic pain syndrome (2) Lumbar radiculopathy: Status: Acute Category: Medical Code(s): M54.16 - Radiculopathy, lumbar region (3) Degenerative disc disease, lumbar: Status: Acute Category: Medical Code(s): M51.369 - Other intervertebral disc degeneration, lumbar region without mention of lumbar back pain or lower extremity pain Plan We will refill the patient's oxycodone and provide a 1 month supply of this medication. Patient will return to clinic in 1 month for reevaluation of symptoms and plan of care. Risks and benefits of the medication have been explained in detail to the patient. The patient does understand the risk of dependence on the medication when given over a prolonged period. Patient has been advised of risks of oversedation with the prescribed medication. Narcan has been offered to the paitent in the event of oversedation. Patient has been advised that a family member should also be educated regarding administration of Narcan. The patient has been advised to consult with his/her primary care provider and pharmacist regarding drug-drug interaction of medications currently prescribed. Patient has been prescribed a controlled substance after being counseled on the medication, medication safety, and possible side effects. Opioid contract was reviewed and signed by the patient, and that they have agreed to all of the terms set forth by our compliance program. A UDS is needed to verify patient's compliance with our office pain contract. This is ordered based off specific treatments related to chronic pain with the potential to abuse certain medications. Patient has been instructed to contact the clinic with any concerns before the next appointment. Dr. Oleary has reviewed this note and agrees with this plan of care. This note was dictated using voice recognition software and make contain errors or omissions.
[2024-05-26 13:01] VITALS: BP 112/49; PULSE 68; RESP 16; O2SAT 100; BMI 24.3
== END 2024-05-26 23:59 | disposition home or self-care (01) ==
PROVIDERS: Visit Provider Nurse Practitioner Family
DX: G89.4 Chronic pain syndrome (principal); M51.16 Intervertebral disc disorders with radiculopathy, lumbar region; Z79.899 Other long term (current) drug therapy
CPT/HCPCS: 99212; G0463

== ENCOUNTER 2024-06-27 11:12 | Outpatient (POV) | payer MEDICARE, SELFPAY ==
[2024-06-27 11:22] VITALS: BP 120/66; PULSE 77; RESP 14; O2SAT 97; BMI 24.7
--- NOTE | 2024-06-27 11:55 | EXP.PAIN.SOA ---
[facility] Disclaimer: The information contained in this section may have been updated after the patient was seen, as this information can be updated by other users. Medical History Hypertension Social History Smoking Status: Unknown if ever smoked alcohol intake: never substance use type: denies use current occupational status: other Travel in the last 8 weeks: None PM Subjective & Objective Subjective Subjective:: Patient is a pleasant 78-year-old male who presents today for medication refill and follow-up. Today he rates his pain a 4 out of 10. He denies any new changes from her last appointment. He is currently managed with oxycodone 10 mg 4 times a day. He denies any side effects. His Nirmal has been reviewed and is appropriate. Review of Systems: General: No recent weight changes, no fever, no sleep disturbances Respiratory: No cough, no shortness of air, no recurring pulmonary infections Cardiovascular/peripheral vascular: No chest pain, no palpitations, no edema, no shortness of breath Gastrointestinal: No new onset incontinence, normal bowel movements reported Genitourinary: No new onset incontinence Musculoskeletal: Chronic low back pain Psychiatric: [Normal mood/affect] Neurological: [Denies weakness in extremities], [denies balance issues] Pain at rest (0-10 scale): 4 Objective Objective:: Physical Exam: General: Alert and oriented x3, no acute distress, pleasant and cooperative Lungs: Respirations even and unlabored, symmetrical chest expansion Eyes: PERRL Musculoskeletal: Flexion and extension of lumbar [spine] somewhat guarded secondary to pain, [antalgic gait noted] Neurological: Speech clear, no gross sensory deficit Has patient had previous pain injection?: No Conservative treatment options previously tried: Prescription medications Length of treatment: Longer than 12 weeks Meds Home Medications and Allergies Home Medications ?Medication ?Instructions ?Recorded ?Confirmed ?Type amlodipine 2.5 mg tablet 2.5 mg PO DAILY blood pressure 12/12/20 06/27/24 History atorvastatin 40 mg tablet 40 mg PO HS Cholesterol 12/12/20 06/27/24 History dapagliflozin propanediol 5 mg 5 mg PO DAILY Diabetes 12/12/20 06/27/24 History tablet isosorbide mononitrate 30 mg 30 mg PO DAILY blood pressure 12/12/20 06/27/24 History tablet,extended release 24 hr lisinopril 10 mg tablet 10 mg PO DAILY blood pressure 12/12/20 06/27/24 History metformin 1,000 mg tablet 1,000 mg PO BID Diabetes 12/12/20 06/27/24 History metoprolol succinate 50 mg 50 mg PO DAILY blood pressure 12/12/20 06/27/24 History tablet,extended release 24 hr omeprazole 20 mg tablet,delayed 20 mg PO DAILY GERD 12/12/20 06/27/24 History release sitagliptin phosphate 50 1 each PO BID Diabetes 12/12/20 06/27/24 History mg-metformin 1,000 mg tablet ticagrelor 90 mg tablet 90 mg PO BID Blood thinner 12/12/20 06/27/24 History zolpidem 10 mg tablet 10 mg PO HS sleep aid 01/09/22 06/27/24 History meloxicam 15 mg tablet 15 mg PO DAILY Pain #30 tabs 08/06/22 06/27/24 Rx tizanidine 4 mg tablet (Zanaflex) 4 mg PO HS Pain 12/05/22 06/27/24 History prednisone 20 mg tablet 20 mg PO BID #10 tabs 04/29/23 06/27/24 Rx baclofen 10 mg tablet 10 mg PO HS #14 tabs 10/26/23 06/27/24 Rx oxycodone 10 mg tablet 10 mg PO QID PRN pain #120 tabs 05/26/24 06/27/24 Rx New Prescriptions to Start Prescriptions: Allergies Allergy/AdvReac Type Severity Reaction Status Date / Time No Known Drug Allergies Allergy Verified 04/17/21 11:51 Assessment and Plan *Assessment and plan (1) Degenerative disc disease, lumbar: Status: Acute Category: Medical Code(s): M51.369 - Other intervertebral disc degeneration, lumbar region without mention of lumbar back pain or lower extremity pain (2) Lumbar radiculopathy: Status: Acute Category: Medical Code(s): M54.16 - Radiculopathy, lumbar region Plan We will refill the patient's oxycodone and provide a 1 month supply of this medication. Patient will return to clinic in 1 month for reevaluation of symptoms and plan of care. Risks and benefits of the medication have been explained in detail to the patient. The patient does understand the risk of dependence on the medication when given over a prolonged period. Patient has been advised of risks of oversedation with the prescribed medication. Narcan has been offered to the paitent in the event of oversedation. Patient has been advised that a family member should also be educated regarding administration of Narcan. The patient has been advised to consult with his/her primary care provider and pharmacist regarding drug-drug interaction of medications currently prescribed. Patient has been prescribed a controlled substance after being counseled on the medication, medication safety, and possible side effects. Opioid contract was reviewed and signed by the patient, and that they have agreed to all of the terms set forth by our compliance program. A UDS is needed to verify patient's compliance with our office pain contract. This is ordered based off specific treatments related to chronic pain with the potential to abuse certain medications. Patient has been instructed to contact the clinic with any concerns before the next appointment. Dr. Oleary has reviewed this note and agrees with this plan of care. This note was dictated using voice recognition software and make contain errors or omissions.
== END 2024-06-27 23:59 | disposition home or self-care (01) ==
PROVIDERS: Visit Provider Nurse Practitioner Family
DX: M51.16 Intervertebral disc disorders with radiculopathy, lumbar region (principal)
CPT/HCPCS: 99212; G0463

== ENCOUNTER 2024-07-25 10:21 | Outpatient (POV) | payer MEDICARE, SELFPAY ==
--- NOTE | 2024-07-25 10:26 | A.OFFVIS_ITS ---
[facility] Disclaimer: The information contained in this section may have been updated after the patient was seen, as this information can be updated by other users. Medical History Hypertension Social History Smoking Status: Unknown if ever smoked alcohol intake: never substance use type: denies use current occupational status: other Travel in the last 8 weeks: None Have you lived/traveled outside [place] in past 30 days?: No Contact w/someone who lives/traveled outside [place] past 30 days?: No Exposure to someone with infectious disease in past 14 days?: No Do you have a fever (greater than 100.4 F or 38 C)?: No Have you tested positive for COVID-19: No Exposed to someone with COVID-19 in past 14 days?: No Do you have a sore throat?: No Do you have a cough?: No Do you have any weakness?: No Do you have any diarrhea?: No Are you experiencing any unusual bleeding?: No Do you have any muscle aches/pain?: No Do you have any abdominal pain?: No Are you experiencing loss of taste or smell?: No PM Subjective & Objective Subjective Subjective:: Patient is a pleasant 78-year-old male who presents today for his monthly medication refill. He rates his pain a 4 out of 10. He denies any new falls or injuries. He states overall he is still maintaining with his current medications. He is prescribed oxycodone 10 mg 4 times a day from our office. H eden denies any side effects. At our last visit he had discussed about possibly changing pharmacies however today he states that [facility] and then he just recently found out that they were closing that location. He states he will leave his pharmacy the same as it has been at this time. His Nirmal has been reviewed and is appropriate. Review of Systems: General: No recent weight changes, no fever, no sleep disturbances Respiratory: No cough, no shortness of air, no recurring pulmonary infections Cardiovascular/peripheral vascular: No chest pain, no palpitations, no edema, no shortness of breath Gastrointestinal: No new onset incontinence, normal bowel movements reported Genitourinary: No new onset incontinence Musculoskeletal: Low back pain Psychiatric: [Normal mood/affect] Neurological: [Denies weakness in extremities], [denies balance issues] Pain at rest (0-10 scale): 4 Objective Objective:: Physical Exam: General: Alert and oriented x3, no acute distress, pleasant and cooperative Lungs: Respirations even and unlabored, symmetrical chest expansion Eyes: PERRL Musculoskeletal: Flexion and extension of lumbar [spine] somewhat guarded secondary to pain, [antalgic gait noted] Neurological: Speech clear, no gross sensory deficit Has patient had previous pain injection?: No Conservative treatment options previously tried: Prescription medications Length of treatment: Longer than 12 weeks Meds Home Medications and Allergies Home Medications ?Medication ?Instructions ?Recorded ?Confirmed ?Type amlodipine 2.5 mg tablet 2.5 mg PO DAILY blood pressure 12/12/20 06/27/24 History atorvastatin 40 mg tablet 40 mg PO HS Cholesterol 12/12/20 06/27/24 History dapagliflozin propanediol 5 mg 5 mg PO DAILY Diabetes 12/12/20 06/27/24 History tablet isosorbide mononitrate 30 mg 30 mg PO DAILY blood pressure 12/12/20 06/27/24 History tablet,extended release 24 hr lisinopril 10 mg tablet 10 mg PO DAILY blood pressure 12/12/20 06/27/24 History metformin 1,000 mg tablet 1,000 mg PO BID Diabetes 12/12/20 06/27/24 History metoprolol succinate 50 mg 50 mg PO DAILY blood pressure 12/12/20 06/27/24 History tablet,extended release 24 hr omeprazole 20 mg tablet,delayed 20 mg PO DAILY GERD 12/12/20 06/27/24 History release sitagliptin phosphate 50 1 each PO BID Diabetes 12/12/20 06/27/24 History mg-metformin 1,000 mg tablet ticagrelor 90 mg tablet 90 mg PO BID Blood thinner 12/12/20 06/27/24 History zolpidem 10 mg tablet 10 mg PO HS sleep aid 01/09/22 06/27/24 History meloxicam 15 mg tablet 15 mg PO DAILY Pain #30 tabs 08/06/22 06/27/24 Rx tizanidine 4 mg tablet (Zanaflex) 4 mg PO HS Pain 12/05/22 06/27/24 History prednisone 20 mg tablet 20 mg PO BID #10 tabs 04/29/23 06/27/24 Rx baclofen 10 mg tablet 10 mg PO HS #14 tabs 10/26/23 06/27/24 Rx oxycodone 10 mg tablet 10 mg PO QID PRN pain #120 tabs 06/27/24 Rx New Prescriptions to Start Prescriptions: Allergies Allergy/AdvReac Type Severity Reaction Status Date / Time No Known Drug Allergies Allergy Verified 04/17/21 11:51 Assessment and Plan *Assessment and plan (1) Chronic pain syndrome: Status: Acute Category: Medical Code(s): G89.4 - Chronic pain syndrome (2) Lumbar radiculopathy: Status: Acute Category: Medical Code(s): M54.16 - Radiculopathy, lumbar region (3) Degenerative disc disease, lumbar: Status: Acute Category: Medical Code(s): M51.369 - Other intervertebral disc degeneration, lumbar region without mention of lumbar back pain or lower extremity pain Plan I will refill his oxycodone and provide a 1 month supply of this medication. Patient will return to clinic in 1 month. Risks and benefits of the medication have been explained in detail to the patient. The patient does understand the risk of dependence on the medication when given over a prolonged period. Patient has been advised of risks of oversedation with the prescribed medication. Narcan has been offered to the paitent in the event of oversedation. Patient has been advised that a family member should also be educated regarding administration of Narcan. The patient has been advised to consult with his/her primary care provider and pharmacist regarding drug-drug interaction of medications currently prescribed. Patient has been prescribed a controlled substance after being counseled on the medication, medication safety, and possible side effects. Opioid contract was reviewed and signed by the patient, and that they have agreed to all of the terms set forth by our compliance program. A UDS is needed to verify patient's compliance with our office pain contract. This is ordered based off specific treatments related to chronic pain with the potential to abuse certain medications. Patient has been instructed to contact the clinic with any concerns before the next appointment. Dr. Oleary has reviewed this note and agrees with this plan of care. This note was dictated using voice recognition software and make contain errors or omissions.
[2024-07-25 10:34] VITALS: BP 117/67; PULSE 68; RESP 16; O2SAT 99; BMI 25.1
== END 2024-07-25 23:59 | disposition home or self-care (01) ==
PROVIDERS: Visit Provider Nurse Practitioner Family
DX: G89.4 Chronic pain syndrome (principal); M51.16 Intervertebral disc disorders with radiculopathy, lumbar region
CPT/HCPCS: 99212; G0463

== ENCOUNTER 2024-08-25 10:48 | Outpatient (POV) | payer MEDICARE, SELFPAY ==
--- NOTE | 2024-08-25 11:28 | A.OFFVIS_ITS ---
[facility] Disclaimer: The information contained in this section may have been updated after the patient was seen, as this information can be updated by other users. Medical History Hypertension Social History Smoking Status: Unknown if ever smoked alcohol intake: never substance use type: denies use current occupational status: other Travel in the last 8 weeks: None PM Subjective & Objective Subjective Subjective:: Patient is a pleasant 78-year-old male who presents today for medication refill and 1 month follow-up. Today he rates his pain a 4 out of 10. He denies any new trauma or injury. He does state that he did not sleep good last night due to all the alerts going off on his phone. Patient denies any other changes. He is currently managed with oxycodone 10 mg 4 times a day from our office. He denies any side effects. His Nirmal has been reviewed and is appropriate. Patient did make mention that he was trying to get his pneumonia vaccine and a flu vaccine however his local [facility] close. Review of Systems: General: No recent weight changes, no fever, no sleep disturbances Respiratory: No cough, no shortness of air, no recurring pulmonary infections Cardiovascular/peripheral vascular: No chest pain, no palpitations, no edema, no shortness of breath Gastrointestinal: No new onset incontinence, normal bowel movements reported Genitourinary: No new onset incontinence Musculoskeletal: Low back pain Psychiatric: [Normal mood/affect] Neurological: [Denies weakness in extremities], [denies balance issues] Pain at rest (0-10 scale): 4 Objective Objective:: Physical Exam: General: Alert and oriented x3, no acute distress, pleasant and cooperative Lungs: Respirations even and unlabored, symmetrical chest expansion Eyes: PERRL Musculoskeletal: Flexion and extension of lumbar [spine] somewhat guarded secondary to pain, [antalgic gait noted] Neurological: Speech clear, no gross sensory deficit Has patient had previous pain injection?: No Conservative treatment options previously tried: Prescription medications Length of treatment: Longer than 12 weeks Meds Home Medications and Allergies Home Medications ?Medication ?Instructions ?Recorded ?Confirmed ?Type amlodipine 2.5 mg tablet 2.5 mg PO DAILY blood pressure 12/12/20 07/25/24 History atorvastatin 40 mg tablet 40 mg PO HS Cholesterol 12/12/20 07/25/24 History dapagliflozin propanediol 5 mg 5 mg PO DAILY Diabetes 12/12/20 07/25/24 History tablet isosorbide mononitrate 30 mg 30 mg PO DAILY blood pressure 12/12/20 07/25/24 History tablet,extended release 24 hr lisinopril 10 mg tablet 10 mg PO DAILY blood pressure 12/12/20 07/25/24 History metformin 1,000 mg tablet 1,000 mg PO BID Diabetes 12/12/20 07/25/24 History metoprolol succinate 50 mg 50 mg PO DAILY blood pressure 12/12/20 07/25/24 Hist ory tablet,extended release 24 hr omeprazole 20 mg tablet,delayed 20 mg PO DAILY GERD 12/12/20 07/25/24 History release sitagliptin phosphate 50 1 each PO BID Diabetes 12/12/20 07/25/24 History mg-metformin 1,000 mg tablet ticagrelor 90 mg tablet 90 mg PO BID Blood thinner 12/12/20 07/25/24 History zolpidem 10 mg tablet 10 mg PO HS sleep aid 01/09/22 07/25/24 History meloxicam 15 mg tablet 15 mg PO DAILY Pain #30 tabs 08/06/22 07/25/24 Rx tizanidine 4 mg tablet (Zanaflex) 4 mg PO HS Pain 12/05/22 07/25/24 History prednisone 20 mg tablet 20 mg PO BID #10 tabs 04/29/23 07/25/24 Rx baclofen 10 mg tablet 10 mg PO HS #14 tabs 10/26/23 07/25/24 Rx oxycodone 10 mg tablet 10 mg PO QID PRN pain #120 tabs 07/25/24 Rx New Prescriptions to Start Prescriptions: Allergies Allergy/AdvReac Type Severity Reaction Status Date / Time No Known Drug Allergies Allergy Verified 04/17/21 11:51 Assessment and Plan *Assessment and plan (1) Lumbar radiculopathy: Status: Acute Category: Medical Code(s): M54.16 - Radiculopathy, lumbar region (2) Degenerative disc disease, lumbar: Status: Acute Category: Medical Code(s): M51.369 - Other intervertebral disc degeneration, lumbar region without mention of lumbar back pain or lower extremity pain Plan I will refill the patient's oxycodone and provide a 1 month supply of this medication. Patient was counseled that he could always try the local [facility] here in [place], that they do accept walk-ins for injections and that they should be able to do definitely the flu vaccine. Patient agrees with this plan of care. Patient will return to clinic in 1 month. Risks and benefits of the medication have been explained in detail to the patient. The patient does understand the risk of dependence on the medication when given over a prolonged period. Patient has been advised of risks of oversedation with the prescribed medication. Narcan has been offered to the paitent in the event of oversedation. Patient has been advised that a family member should also be educated regarding administration of Narcan. The patient has been advised to consult with his/her primary care provider and pharmacist regarding drug-drug interaction of medications currently prescribed. Patient has been prescribed a controlled substance after being counseled on the medication, medication safety, and possible side effects. Opioid contract was reviewed and signed by the patient, and that they have agreed to all of the terms set forth by our compliance program. A UDS is needed to verify patient's compliance with our office pain contract. This is ordered based off specific treatments related to chronic pain with the potential to abuse certain medications. Patient has been instructed to contact the clinic with any concerns before the next appointment. Dr. Oleary has reviewed this note and agrees with this plan of care. This note was dictated using voice recognition software and make contain errors or omissions.
[2024-08-25 12:24] VITALS: BP 112/67; PULSE 70; RESP 18; O2SAT 100; BMI 25.1
== END 2024-08-25 23:59 | disposition home or self-care (01) ==
PROVIDERS: Visit Provider Nurse Practitioner Family
DX: M51.16 Intervertebral disc disorders with radiculopathy, lumbar region (principal)
CPT/HCPCS: 99212; G0463

== ENCOUNTER 2024-09-22 11:06 | Outpatient (POV) | payer MEDICARE, SELFPAY ==
--- NOTE | 2024-09-22 11:32 | EXP.PAIN.SOA ---
[facility] Disclaimer: The information contained in this section may have been updated after the patient was seen, as this information can be updated by other users. Medical History Hypertension Social History Smoking Status: Unknown if ever smoked alcohol intake: never substance use type: denies use current occupational status: other Travel in the last 8 weeks?: None PM Subjective & Objective Subjective Subjective:: Patient is a pleasant 78-year-old male who presents today for his medication refill. Today he rates his pain a 4 out of 10. He denies any new trauma or injury. He does state at our last visit he was able to go to [employer] and get his flu and pneumonia vaccine. He does state that he is stopping negative today to get another vaccine. Patient is currently managed with oxycodone 10 mg 4 times a day from our office. He denies any side effects or changes to his pharmacy. His Nirmal has been reviewed and is appropriate. Review of Systems: General: No recent weight changes, no fever, no sleep disturbances Respiratory: No cough, no shortness of air, no recurring pulmonary infections Cardiovascular/peripheral vascular: No chest pain, no palpitations, no edema, no shortness of breath Gastrointestinal: No new onset incontinence, normal bowel movements reported Genitourinary: No new onset incontinence Musculoskeletal: Low back pain Psychiatric: [Normal mood/affect] Neurological: [Denies weakness in extremities], [denies balance issues] Pain at rest (0-10 scale): 4 Objective Objective:: Physical Exam: General: Alert and oriented x3, no acute distress, pleasant and cooperative Lungs: Respirations even and unlabored, symmetrical chest expansion Eyes: PERRL Musculoskeletal: Flexion and extension of lumbar [spine] somewhat guarded secondary to pain Neurological: Speech clear, no gross sensory deficit Has patient had previous pain injection?: No Conservative treatment options previously tried: Prescription medications Length of treatment: Longer than 12 weeks Meds Home Medications and Allergies Home Medications ?Medication ?Instructions ?Recorded ?Confirmed ?Type amlodipine 2.5 mg tablet 2.5 mg PO DAILY blood pressure 12/12/20 08/25/24 History atorvastatin 40 mg tablet 40 mg PO HS Cholesterol 12/12/20 08/25/24 History dapagliflozin propanediol 5 mg 5 mg PO DAILY Diabetes 12/12/20 08/25/24 History tablet isosorbide mononitrate 30 mg 30 mg PO DAILY blood pressure 12/12/20 08/25/24 History tablet,extended release 24 hr lisinopril 10 mg tablet 10 mg PO DAILY blood pressure 12/12/20 08/25/24 History metformin 1,000 mg tablet 1,000 mg PO BID Diabetes 12/12/20 08/25/24 History metoprolol succinate 50 mg 50 mg PO DAILY blood pressure 12/12/20 08/25/24 History tablet,extended release 24 hr omeprazole 20 mg tablet,delayed 20 mg PO DAILY GERD 12/12/20 08/25/24 History release sitagliptin phosphate 50 1 each PO BID Diabetes 12/12/20 08/25/24 History mg-metformin 1,000 mg tablet ticagrelor 90 mg tablet 90 mg PO BID Blood thinner 12/12/20 08/25/24 History zolpidem 10 mg tablet 10 mg PO HS sleep aid 01/09/22 08/25/24 History meloxicam 15 mg tablet 15 mg PO DAILY Pain #30 tabs 08/06/22 08/25/24 Rx tizanidine 4 mg tablet (Zanaflex) 4 mg PO HS Pain 12/05/22 08/25/24 History prednisone 20 mg tablet 20 mg PO BID #10 tabs 04/29/23 08/25/24 Rx baclofen 10 mg tablet 10 mg PO HS #14 tabs 10/26/23 08/25/24 Rx oxycodone 10 mg tablet 10 mg PO QID PRN pain #120 tabs 08/25/24 Rx New Prescriptions to Start Prescriptions: Allergies Allergy/AdvReac Type Severity Reaction Status Date / Time No Known Drug Allergies Allergy Verified 04/17/21 11:51 Assessment and Plan *Assessment and plan (1) Lumbar radiculopathy: Status: Acute Category: Medical Code(s): M54.16 - Radiculopathy, lumbar region (2) Degenerative disc disease, lumbar: Status: Acute Category: Medical Code(s): M51.369 - Other intervertebral disc degeneration, lumbar region without mention of lumbar back pain or lower extremity pain Plan We will refill his oxycodone and provide a 1 month supply of this medication. Patient will return to clinic in 1 month for reevaluation of symptoms and plan of care. Risks and benefits of the medication have been explained in detail to the patient. The patient does understand the risk of dependence on the medication when given over a prolonged period. Patient has been advised of risks of oversedation with the prescribed medication. Narcan has been offered to the paitent in the event of oversedation. Patient has been advised that a family member should also be educated regarding administration of Narcan. The patient has been advised to consult with his/her primary care provider and pharmacist regarding drug-drug interaction of medications currently prescribed. Patient has been prescribed a controlled substance after being counseled on the medication, medication safety, and possible side effects. Opioid contract was reviewed and signed by the patient, and that they have agreed to all of the terms set forth by our compliance program. A UDS is needed to verify patient's compliance with our office pain contract. This is ordered based off specific treatments related to chronic pain with the potential to abuse certain medications. Patient has been instructed to contact the clinic with any concerns before the next appointment. Dr. Oleary has reviewed this note and agrees with this plan of care. This note was dictated using voice recognition software and make contain errors or omissions.
[2024-09-22 14:29] VITALS: BP 113/97; PULSE 67; RESP 18; O2SAT 98; BMI 26.2
== END 2024-09-22 23:59 | disposition home or self-care (01) ==
PROVIDERS: Visit Provider Nurse Practitioner Family
DX: M51.16 Intervertebral disc disorders with radiculopathy, lumbar region (principal)
CPT/HCPCS: 99212; G0463

== ENCOUNTER 2024-10-26 10:18 | Outpatient (POV) | payer MEDICARE, SELFPAY ==
--- NOTE | 2024-10-26 10:48 | EXP.PAIN.SOA ---
[facility] Disclaimer: The information contained in this section may have been updated after the patient was seen, as this information can be updated by other users. Medical History Hypertension Social History Smoking Status: Unknown if ever smoked alcohol intake: never substance use type: denies use current occupational status: other Travel in the last 8 weeks?: None PM Subjective & Objective Subjective Subjective:: Patient is a pleasant 79-year-old male who presents today for medication refill and follow-up. Today he rates his pain a 5 out of 10. He denies any new changes from our last appointment. He is currently on oxycodone 10 mg 4 times a day. He denies any side effects. He states overall he is doing well with this medication. His Nirmal has been reviewed and is appropriate. Review of Systems: General: No recent weight changes, no fever, no sleep disturbances Respiratory: No cough, no shortness of air, no recurring pulmonary infections Cardiovascular/peripheral vascular: No chest pain, no palpitations, no edema, no shortness of breath Gastrointestinal: No new onset incontinence, normal bowel movements reported Genitourinary: No new onset incontinence Musculoskeletal: Low back pain Psychiatric: [Normal mood/affect] Neurological: [Denies weakness in extremities], [denies balance issues] Pain at rest (0-10 scale): 5 Objective Objective:: Physical Exam: General: Alert and oriented x3, no acute distress, pleasant and cooperative Lungs: Respirations even and unlabored, symmetrical chest expansion Eyes: PERRL Musculoskeletal: Flexion and extension of lumbar [spine] somewhat guarded secondary to pain, [antalgic gait noted] Neurological: Speech clear, no gross sensory deficit Has patient had previous pain injection?: No Conservative treatment options previously tried: Prescription medications Length of treatment: Longer than 12 weeks Meds Home Medications and Allergies Home Medications ?Medication ?Instructions ?Recorded ?Confirmed ?Type amlodipine 2.5 mg tablet 2.5 mg PO DAILY blood pressure 12/12/20 09/22/24 History atorvastatin 40 mg tablet 40 mg PO HS Cholesterol 12/12/20 09/22/24 History dapagliflozin propanediol 5 mg 5 mg PO DAILY Diabetes 12/12/20 09/22/24 History tablet isosorbide mononitrate 30 mg 30 mg PO DAILY blood pressure 12/12/20 09/22/24 History tablet,extended release 24 hr lisinopril 10 mg tablet 10 mg PO DAILY blood pressure 12/12/20 09/22/24 History metformin 1,000 mg tablet 1,000 mg PO BID Diabetes 12/12/20 09/22/24 History metoprolol succinate 50 mg 50 mg PO DAILY blood pressure 12/12/20 09/22/24 History tablet,extended release 24 hr omeprazole 20 mg tablet,delayed 20 mg PO DAILY GERD 12/12/20 09/22/24 History release sitagliptin phosphate 50 1 each PO BID Diabetes 12/12/20 09/22/24 History mg-metformin 1,000 mg tablet ticagrelor 90 mg tablet 90 mg PO BID Blood thinner 12/12/20 09/22/24 History zolpidem 10 mg tablet 10 mg PO HS sleep aid 01/09/22 09/22/24 History meloxicam 15 mg tablet 15 mg PO DAILY Pain #30 tabs 08/06/22 09/22/24 Rx tizanidine 4 mg tablet (Zanaflex) 4 mg PO HS Pain 12/05/22 09/22/24 History prednisone 20 mg tablet 20 mg PO BID #10 tabs 04/29/23 09/22/24 Rx baclofen 10 mg tablet 10 mg PO HS #14 tabs 10/26/23 09/22/24 Rx oxycodone 10 mg tablet 10 mg PO QID PRN pain #120 tabs 09/22/24 Rx New Prescriptions to Start Prescriptions: Allergies Allergy/AdvReac Type Severity Reaction Status Date / Time No Known Drug Allergies Allergy Verified 04/17/21 11:51 Assessment and Plan *Assessment and plan (1) Lumbar radiculopathy: Status: Acute Category: Medical Code(s): M54.16 - Radiculopathy, lumbar region (2) Degenerative disc disease, lumbar: Status: Acute Category: Medical Code(s): M51.369 - Other intervertebral disc degeneration, lumbar region without mention of lumbar back pain or lower extremity pain Plan We will refill the patient's oxycodone provide a 1 month supply of this medication. Patient will return to clinic in 1 month for reevaluation of symptoms and plan of care. Risks and benefits of the medication have been explained in detail to the patient. The patient does understand the risk of dependence on the medication when given over a prolonged period. Patient has been advised of risks of oversedation with the prescribed medication. Narcan has been offered to the paitent in the event of oversedation. Patient has been advised that a family member should also be educated regarding administration of Narcan. The patient has been advised to consult with his/her primary care provider and pharmacist regarding drug-drug interaction of medications currently prescribed. Patient has been prescribed a controlled substance after being counseled on the medication, medication safety, and possible side effects. Opioid contract was reviewed and signed by the patient, and that they have agreed to all of the terms set forth by our compliance program. A UDS is needed to verify patient's compliance with our office pain contract. This is ordered based off specific treatments related to chronic pain with the potential to abuse certain medications. Patient has been instructed to contact the clinic with any concerns before the next appointment. Dr. Oleary has reviewed this note and agrees with this plan of care. This note was dictated using voice recognition software and make contain errors or omissions.
[2024-10-26 11:12] VITALS: BP 108/65; PULSE 67; RESP 18; O2SAT 97; BMI 26.2
== END 2024-10-26 23:59 | disposition home or self-care (01) ==
PROVIDERS: Visit Provider Nurse Practitioner Family
DX: M51.16 Intervertebral disc disorders with radiculopathy, lumbar region (principal); Z79.891 Long term (current) use of opiate analgesic
CPT/HCPCS: 99212; G0463

== ENCOUNTER 2024-11-28 10:45 | Outpatient (POV) | payer MEDICARE, SELFPAY ==
--- NOTE | 2024-11-28 10:59 | EXP.PAIN.SOA ---
[facility] Disclaimer: The information contained in this section may have been updated after the patient was seen, as this information can be updated by other users. Medical History Hypertension Social History Smoking Status: Unknown if ever smoked alcohol intake: never substance use type: denies use current occupational status: other Travel in the last 8 weeks?: None PM Subjective & Objective Subjective Subjective:: Patient is a pleasant 79-year-old male who presents today for medication refill and follow-up. He rates his pain a 4 out of 10. He states overall he has not had any changes from our last visit. He is still doing really well with his current pain medication of oxycodone 10 mg 4 times a day. He denies any changes to his pharmacy or any side effects. His Nirmal is currently unavailable. Review of Systems: General: No recent weight changes, no fever, no sleep disturbances Respiratory: No cough, no shortness of air, no recurring pulmonary infections Cardiovascular/peripheral vascular: No chest pain, no palpitations, no edema, no shortness of breath Gastrointestinal: No new onset incontinence, normal bowel movements reported Genitourinary: No new onset incontinence Musculoskeletal: Chronic back pain Psychiatric: [Normal mood/affect] Neurological: [Denies weakness in extremities], [denies balance issues] Pain at rest (0-10 scale): 4 Objective Objective:: Physical Exam: General: Alert and oriented x3, no acute distress, pleasant and cooperative Lungs: Respirations even and unlabored, symmetrical chest expansion Eyes: PERRL Musculoskeletal: Flexion and extension of lumbar [spine] somewhat guarded secondary to pain, [antalgic gait noted] Neurological: Speech clear, no gross sensory deficit Has patient had previous pain injection?: No Conservative treatment options previously tried: Prescription medications Length of treatment: Longer than 12 weeks Meds Home Medications and Allergies Home Medications ?Medication ?Instructions ?Recorded ?Confirmed ?Type amlodipine 2.5 mg tablet 2.5 mg PO DAILY blood pressure 12/12/20 10/26/24 History atorvastatin 40 mg tablet 40 mg PO HS Cholesterol 12/12/20 10/26/24 History dapagliflozin propanediol 5 mg 5 mg PO DAILY Diabetes 12/12/20 10/26/24 History tablet isosorbide mononitrate 30 mg 30 mg PO DAILY blood pressure 12/12/20 10/26/24 History tablet,extended release 24 hr lisinopril 10 mg tablet 10 mg PO DAILY blood pressure 12/12/20 10/26/24 History metformin 1,000 mg tablet 1,000 mg PO BID Diabetes 12/12/20 10/26/24 History metoprolol succinate 50 mg 50 mg PO DAILY blood pressure 12/12/20 10/26/24 History tablet,extended release 24 hr omeprazole 20 mg tablet,delayed 20 mg PO DAILY GERD 12/12/20 10/26/24 History release sitagliptin phosphate 50 1 each PO BID Diabetes 12/12/20 10/26/24 History mg-metformin 1,000 mg tablet ticagrelor 90 mg tablet 90 mg PO BID Blood thinner 12/12/20 10/26/24 History zolpidem 10 mg tablet 10 mg PO HS sleep aid 01/09/22 10/26/24 History meloxicam 15 mg tablet 15 mg PO DAILY Pain #30 tabs 08/06/22 10/26/24 Rx tizanidine 4 mg tablet (Zanaflex) 4 mg PO HS Pain 12/05/22 10/26/24 History prednisone 20 mg tablet 20 mg PO BID #10 tabs 04/29/23 10/26/24 Rx baclofen 10 mg tablet 10 mg PO HS #14 tabs 10/26/23 10/26/24 Rx oxycodone 10 mg tablet 10 mg PO QID PRN pain #120 tabs 10/26/24 Rx oxycodone 10 mg tablet 10 mg PO QID PRN pain #16 tabs 11/03/24 Rx New Prescriptions to Start Prescriptions: Allergies Allergy/AdvReac Type Severity Reaction Status Date / Time No Known Drug Allergies Allergy Verified 04/17/21 11:51 Assessment and Plan *Assessment and plan (1) Lumbar radiculopathy: Status: Acute Category: Medical Code(s): M54.16 - Radiculopathy, lumbar region (2) Degenerative disc disease, lumbar: Status: Acute Category: Medical Code(s): M51.369 - Other intervertebral disc degeneration, lumbar region without mention of lumbar back pain or lower extremity pain Plan I will refill his oxycodone and provide a 1 month supply of this medication. Patient will return to clinic in 1 month for reevaluation of symptoms and plan of care. Risks and benefits of the medication have been explained in detail to the patient. The patient does understand the risk of dependence on the medication when given over a prolonged period. Patient has been advised of risks of oversedation with the prescribed medication. Narcan has been offered to the paitent in the event of oversedation. Patient has been advised that a family member should also be educated regarding administration of Narcan. The patient has been advised to consult with his/her primary care provider and pharmacist regarding drug-drug interaction of medications currently prescribed. Patient has been prescribed a controlled substance after being counseled on the medication, medication safety, and possible side effects. Opioid contract was reviewed and signed by the patient, and that they have agreed to all of the terms set forth by our compliance program. A UDS is needed to verify patient's compliance with our office pain contract. This is ordered based off specific treatments related to chronic pain with the potential to abuse certain medications. Patient has been instructed to contact the clinic with any concerns before the next appointment. Dr. Oleary has reviewed this note and agrees with this plan of care. This note was dictated using voice recognition software and make contain errors or omissions.
--- OUTSIDE RECORDS SUMMARY | 2024-11-28 11:12 | XMS_ITS | Encounter Summary ---
Author Organization [facility] Address [address] [place] [address] Care Team Providers Care Price Clerk Name Role Phone Nhi AZUL MD, Stew Gonzales Unavailable Haven Kirby Bustamante MD Unavailable [phone] Nicholas Cristobal MD Unavailable Charlie Ayala PA-C Unavailable [phone] Sully Castillo LPN Unavailable Unavailable Julio Samayoa APRN Primary Care Provider [phone] Florin Vicente MD Unavailable Tiffanie Avery MD Primary Care Provider [phone] Sindi Mcfarland MA Unavailable Unavailable Mao Powell MD Unavailable [phone] Jeff Douglas MD Unavailable [phone] Tiffanie Avery MD Primary Care Provider Reason for Visit * Reason Onset Date Comments Results - Test 02/05/2017 stress Encounter Details Date Type Department Care Team (Late st Contact Info) Description 02/05/2017 Telephone [facility] [address], [address] [place] [address] Sybil Banegas Results - Test (stress) Social History Tobacco Use Types Packs/Day Years Used Date Smoking Tobacco: Former Cigarettes 1 20 1 - 03/15/1986 Smokeless Tobacco: Never Alcohol Use Standard Drinks/Week Comments No 0 (1 standard drink = 0.6 oz pur e alcohol) Sex and Gender Information Value Date Recorded Sex Assigned at Not on file Legal Sex Male 9:36 PM EST Gender Identity Not on file Sexual Orientation Not on file documented as of this encounter Miscellaneous Notes * Telephone Encounter - Taya Dumont LPN - 02/05/2017 10:05 AM EDT Pt informed of results per purnima also instructed to keep appt - voiced understanding * Telephone Encounter - Sybil Banegas - 02/05/2017 9:13 AM EDT Patient sees Dariana in [place], wants to know if we have stress results. Please advise [phone] documented in this encounter Plan of Treatment Upcoming Encounters Date Type Department Care Team (Late st Contact Info) Description 12/05/2024 9:30 AM EDT Office Visit [facility] [address] [place] [address] Marcos Santana APRN [address] [place] [address],[address] [place] [address] documented as of this encounter Visit Diagnoses Not on filedocumented in this encounter Care Teams Price Clerk Relationship Specialty Start Date End Date Julio Samayoa APRN [address] [place] [address] PCP - General Family Practice 01/20/17 01/19/18 Tiffanie Avery MD [address] [place] [address] PCP - General Family Medicine 01/20/18 10/28/23 Tiffanie Avery MD [address] [place] [address] PCP - General Family Medicine 12/22/23 Stew Hankins III, MD Gastroenterology 10/25/10 Kirby Kaur MD [address] [place] [address] Family Medicine 12/23/11 Nicholas Cristobal MD [address] [place] [address] Gastroenterology 08/08/14 Charlie Ayala, PAMindiC [address] [place] [address] Physician Roofer Helper Vinyl Coating 02/05/15 Sully Castillo LPN 02/22/15 [place] [address] [place] [address] [place] [address] Pulmonary Disease 01/19/18 Sindi Mcfarland MA 09/22/18 Mao Powell MD [address] [place] [address] Orthopedic Surgery 05/22/21 Jeff Douglas MD [address] [place] [address] Orthopedic Surgery 07/18/21 documented as of this encounter
--- OUTSIDE RECORDS SUMMARY | 2024-11-28 11:12 | XMS_ITS | Encounter Summary ---
Author Organization [facility] Address [address] [place] [address] Care Team Providers Care Non Destructive Testing Scientist Name Role Phone Nhi AZUL MD, Stew Gonzales Unavailable Haven Kirby Bustamante MD Unavailable [phone] Nicholas Cristobal MD Unavailable Charlie Ayala PA-C Unavailable Sully Castillo LPN Unavailable Unavailable Julio Samayoa APRN Primary Care Provider [phone] Julio Samayoa APRN Primary Care Provider Florin Vicente MD Unavailable Tiffanie Avery MD Primary Care Provider [phone] Sindi Mcfarland MA Unavailable Unavailable Mao Powell MD Unavailable [phone] Jeff Douglas MD Unavailable [phone] Tiffanie Avery MD Primary Care Provider [phone] Reason for Visit * Reason Onset Date Comments Other 08/25/2016 requesting medic ation for diverticulitis Encounter Details Date Type Department Care Team (Late st Contact Info) Description 08/25/2016 Telephone [facility] [address] [place] [address] Julio Samayoa APRN [address] [place] [address] Other (requesting medication for diverticulitis ) Social History Tobacco Use Types Packs/Day Years [...] encounter Miscellaneous Notes * Telephone Encounter - Gonzalez Du - 08/25/2016 11:52 AM EDT Patient advised. Patient says he is done with Yaniv Daughters * Telephone Encounter - Naima Holt - 08/25/2016 8:23 AM EDT Patient is having a flare up of his diverticulitis, patient is unsure of what medication that he has taken for it. Stated that it has been awhile since medication has been called in. Patient is unable to come in for appointment he is currently in [place]. documented in this encounter Plan of Treatment Upcoming Encounters Date Type Department Care Team (Late st Contact Info) Description 12/05/2024 9:30 AM EDT Office Visit [facility] [address], [address] [place] [address] Marcos Santana APRN [address] [place] [address],[address] [place] [address] documented as of this encounter Visit Diagnoses Not on filedocumented in this encounter Care Teams Non Destructive Testing Scientist Relationship Specialty Start Date End Date Julio Samayoa APRN [address] [place] [address] PCP - General nurse practitioner adult care 04/26/15 01/19/17 Julio Samayoa APRN [address] [facility] [place] [address] PCP - General Family Practice 01/20/17 01/19/18 Tiffanie Avery MD [address] [place] [id number] PCP - General Family Medicine 01/20/18 10/28/23 Tiffanie Avery MD [address] [place] [id number] PCP - General Family Medicine 12/22/23 Stew Hankins III, MD Gastroenterology 10/25/10 Kirby Kaur MD [address] [place] [address] Family Medicine 12/23/11 Nicholas Cristobal MD [address] [place] [address] Gastroenterology 08/08/14 Charlie Ayala, PAMindiC [address] [place] [address] Physician Program Developer 02/05/15 Sully Castillo LPN 02/22/15 Florin Vicente MD [address] [place] [address] [address] Pulmonary Disease 01/19/18 Sindi Mcfarland MA 09/22/18 Mao Powell MD [address] [place] [address] Orthopedic Surgery 05/22/21 Jeff Douglas MD [address] [place] [address] Orthopedic Surgery 07/18/21 documented as of this encounter
--- OUTSIDE RECORDS SUMMARY | 2024-11-28 11:12 | XMS_ITS | Encounter Summary ---
Author Organization [facility] Address [address] [place] [address] Care Team Providers Care Oven Press Tender Name Role Phone Nhi AZUL MD, Stew Gonzales Unavailable Haven Kirby Bustamante MD Unavailable [phone] Nicholas Cristobal MD Unavailable Charlie Ayala PA-C Unavailable Sully Castillo LPN Unavailable Unavailable Florin Vicente MD Unavailable Tiffanie Avery MD Primary Care Provider [phone] Sindi Mcfarland MA Unavailable Unavailable Mao Powell MD Unavailable Jeff Douglas MD Unavailable Tiffanie Avery MD Primary Care Provider [phone] Reason for Visit * Reason Onset Date Comments Medication - Prior Authorization 05/23/2019 Diabetic Supplies Encounter Details Date Type Department Care Team (Late st Contact Info) Description 05/23/2019 Telephone [facility] [address] [place] [place] [id number] Tiffanie Avery MD [address] [place] [address] Medication - Prior Authorization (Diabetic Supplies) Social History Tobacco Use Types Packs/Day Years [...] encounter Miscellaneous Notes * Telephone Encounter - Kera Gupta - 05/23/2019 4:41 PM EST Pharmacist called to advise they were unable to find diabetic testing supplies covered by the patient's insurance, so they are requesting a PA. They're sending a faxed request for Cover[employer]. Pleaseadvise. documented in this encounter Plan of Treatment Upcoming Encounters Date Type Department Care Team (Late st Contact Info) Description 12/05/2024 9:30 AM EDT Office Visit [facility] [address], [address] [place] [address] Marcos Santana APRN [address] [place] [address],[address] [place] [address] documented as of this encounter Visit Diagnoses Not on filedocumented in this encounter Additional Health Concerns Assessment Noted Time PHQ-9 Depression Total Score: 0 04/01/20 19 2:31 PM EST documented as of this encounter Care Teams Oven Press Tender Relationship Specialty Start Date End Date Tiffanie Avery MD [address] [place] [address] PCP - General Family Medicine 01/20/18 10/28/23 Tiffanie Avery MD [address] [place] [address] PCP - General Family Medicine 12/22/23 Stew Hankins III, MD Gastroenterology 10/25/10 Kirby Kaur MD [address] [place] [address] [address] [place] [address] Family Medicine 12/23/11 Nicholas Cristobal MD [address] [place] [address] Gastroenterology 08/08/14 Charlie Ayala, TORIC [address] [place] [address] Physician Nitrocellulose Maker 02/05/15 Sully Castillo LPN 02/22/15 [place] [address] [place] [address] [place] [address] Pulmonary Disease 01/19/18 Sindi Mcfarland MA 09/22/18 Mao Powell MD [address] [place] [address] Orthopedic Surgery 05/22/21 Jeff Douglas MD [address] [place] [address] Orthopedic Surgery 07/18/21 documented as of this encounter
--- OUTSIDE RECORDS SUMMARY | 2024-11-28 11:12 | XMS_ITS | Encounter Summary ---
Author Organization [facility] Address [address] [place] [address] Care Team Providers Care Winchman/Crane Operator Name Role Phone Nhi AZUL MD, Stew Gonzales Unavailable Haven Kirby Bustamante MD Unavailable Nicholas Cristobal MD Unavailable Charlie Ayala PA-C Unavailable [phone] Sully Castillo LPN Unavailable Unavailable Florin Viecnte MD Unavailable Tiffanie Avery MD Primary Care Provider [phone] Sindi Mcfarland MA Unavailable Unavailable Mao Powell MD Unavailable Jeff Douglas MD Unavailable Tiffanie Avery MD Primary Care Provider [phone] Reason for Visit * Reason Onset Date Comments Medications Refill 05/16/2019 Encounter Details Date Type Department Care Team (Late st Contact Info) Description 05/16/2019 Refill [facility] [address], [address] [place] [address] Joann Ayoub MD [address] [place] [address] [address] [place] [address] Medications Refill Social History Tobacco Use Types Packs/Day Years [...] on file documented as of this encounter Plan of Treatment Upcoming Encounters Date Type Department Care Team (Late st Contact Info) Description 12/05/2024 9:30 AM EDT Office Visit [facility] [address], [address] [place] [address] Marcos Santana, YANNICK [address] [place] [address] [address] [place], [place] [id number] documented as of this encounter Visit Diagnoses Diagnosis 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 Palpitations Shortness of breath Gastroesophageal reflux disease with esophagitis documented in this encounter Additional Health Concerns Assessment Noted Time PHQ-9 Depression Total Score: 0 04/01/20 19 2:31 PM EST documented as of this encounter Care Teams Winchman/Crane Operator Relationship Specialty Start Date End Date Tiffanie Avery MD [address] [place] [address] PCP - General Family Medicine 01/20/18 10/28/23 Tiffanie Avery MD [address] [place] [address] PCP - General Family Medicine 12/22/23 Stew Hankins III, MD Gastroenterology 10/25/10 Kirby Kaur MD [address] [place] [address] [address] [place] [address] Family Medicine 12/23/11 Nicholas Cristobal MD [address] [place] [address] [address] [place] [address] Gastroenterology 08/08/14 Charlie Ayala PA-C [address] [place] [address] Physician Singe Winder 02/05/15 Sully Castillo LPN 02/22/15 Florin Vicente MD [address] [facility] [address] [place] [address] Pulmonary Disease 01/19/18 Sindi Mcfarland MA 09/22/18 Mao Powell MD [address] [place] [address] [address] [place] [address] Orthopedic Surgery 05/22/21 Jeff Douglas MD [address] [place] [address] [address] [place] [address] Orthopedic Surgery 07/18/21 documented as of this encounter
--- OUTSIDE RECORDS SUMMARY | 2024-11-28 11:12 | XMS_ITS | Encounter Summary ---
Author Organization [facility] Address [address] [place] [address] Care Team Providers Care Master At Arms Name Role Phone Nhi AZUL MD, Stew Gonzales Unavailable Haven Kirby Bustamante MD Unavailable Nicholas Cristobal MD Unavailable Charlie Ayala PA-C Unavailable Sully Castillo LPN Unavailable Unavailable Florin Vicente MD Unavailable Tiffanie Avery MD Primary Care Provider [phone] Sindi Mcfarland MA Unavailable Unavailable Mao Powell MD Unavailable [phone] Jeff Douglas MD Unavailable [phone] Tiffanie Avery MD Primary Care Provider [phone] Encounter Details Date Type Department Care Team (Late st Contact Info) Description 04/11/2019 Refill [facility] [address], [address] [place] [address] Nevaeh Sibley LPN Social History Tobacco Use Types Packs/Day Years [...] 9:30 AM EDT Office Visit [facility] [address] [place] [address], [address] [place] [address] Marcos Santana APRN [address] [place] [address],[address] [place], [place] [id number] documented as of this encounter Visit Diagnoses Diagnosis Coronary artery disease involving sioux coronary artery, angina presence unspecified, unspecified whether sioux or transplanted heart Palpitations Unstable angina pectoris (HCC) Intermediate coronary syndrome documented in this encounter Additional Health Concerns Assessment Noted Time PHQ-9 Depression Total Score: 0 04/01/20 19 2:31 PM EST documented as of this encounter Care Teams Master At Arms Relationship Specialty Start Date End Date Tiffanie Avery MD [address] [place] [address] PCP - General Family Medicine 01/20/18 10/28/23 Tiffanie Avery MD [address] [place] [address] PCP - General Family Medicine 12/22/23 Stew Hankins III, MD Gastroenterology 10/25/10 Kirby Kaur MD [address] [place] [address] [address] [place] [address] Family Medicine 12/23/11 Nicholas Cristobal MD [address] [place] [address] [address] [place] [address] Gastroenterology 08/08/14 Charlie Ayala PA-C [address] [place] [address] [address] [place] [address] Physician New Car Sales Manager 02/05/15 Sully Castillo LPN 02/22/15 Florin Vicente MD [address] [facility] [address] [place] [id number] Pulmonary Disease 01/19/18 Sindi Mcfarland MA 09/22/18 Mao Powell MD [address] [place] [address] [place] [address] Orthopedic Surgery 05/22/21 Jeff Douglas MD [address] [place] [address] [address] Orthopedic Surgery 07/18/21 documented as of this encounter
--- OUTSIDE RECORDS SUMMARY | 2024-11-28 11:12 | XMS_ITS | Clinical Summary ---
Author Organization [facility] Address [address] [place] [address] Care Team Providers Care Machine Builder Name Role Phone Nhi AZUL MD, Stew Gonzales Unavailable Haven Kirby Bustamante MD Unavailable Nicholas Martinez MD Unavailable Charlie Ayala PA-C Unavailable [phone] Sully Castillo LPN Unavailable Unavailable Florin Vicente MD Unavailable Sindi Mcfarland MA Unavailable Unavailable Mao Powell MD Unavailable Jeff Douglas MD Unavailable Tiffanie Avery MD Primary Care Provider [phone] Allergies No known active allergies Medications lancets & blood glucose strips CmpkIndications:As thma (HHS/HCC),Lumbar radiculopathy,Mold Parter jennifer pain 1 Package Twice a day. 60 Package 12 01/26/20 13 Active cyanocobalamin (VITAMIN B-12) 1,000 mcg tabletIndications: Vitamin B12 deficiency Take 1 Tab by mouth Daily. 30 Tab 5 05/23/20 14 Active aspirin (ASPIRIN) [address] tabletIndications: Chest pain on exertion Take 1 Tab by mouth Daily. 30 Tab 3 01/17/20 17 Active albuterol (VENTOLIN HFA) 90 mcg/Actuation inhalerIndications :Shortness of breath Take 2 Puffs by inhalation Every 4 hours as needed (WHEEZING). 1 Each 3 12/11/19 18 Active nitroglycerin (NITROSTAT) 0.4 mg SL tabletIndications: Chest pain, unspecified type Take 1 Tab sublingually Every 5 minutes as needed for Chest pain. 15 Tab 3 06/07/19 19 Active blood-glucose meter KitIndications:DM (diabetes mellitus) ([facility]) 1 Kit Twice a day. Dispense what is on formulary 1 Kit 06/01/19 Active Lancets MiscIndications:DM (diabetes mellitus) ([facility]) 1 Device Twice a day. Dispense what is formulary 200 Each 3 06/01/19 Active oxyCODONE 10 mg TabIndications:Lum bar radiculopathy Take 10 mg by mouth Four times a day. 08/09/19 22 Active Ferrous Sulfate 325 mg (65 mg iron) tabletIndications: Iron deficiency Take 1 Tablet by mouth Once Daily. 90 Tablet 3 01/09/20 23 Active tiZANidine (ZANAFLEX) 4 mg tablet Take 4 mg by mouth As directed as needed. 11/07/19 23 Active zolpidem (AMBIEN) 10 mg tabletIndications: Insomnia, unspecified type Take 1 Tablet by mouth At bedtime as needed for Sleep. 30 Tablet 1 08/06/19 24 Active ergocalciferol (VITAMIN D2) 50,000 unit CAPSULEIndications :Vitamin D deficiency Take 1 Capsule by mouth Every week. 12 Capsule 3 08/28/19 24 Active cyclobenzaprine (FLEXERIL) 5 mg tabletIndications: Type 2 diabetes mellitus without complication, without long-term current use of insulin ([facility]),Lumbar radiculopathy,Othe r chronic pain Take 2 Tabs by mouth Three times a day as needed for Muscle spasms. 90 Tablet 2 08/28/19 24 Active ticagrelor (BRILINTA) 90 mg tabletIndications: Status post coronary artery stent placement Take 1 Tablet by mouth Twice a day. 180 Tablet 3 03/31/20 24 Active febuxostat (ULORIC) 40 mg tabletIndications: Gout, unspecified cause, unspecified chronicity, unspecified site Take 1 Tablet by mouth Once Daily. 90 Tablet 3 05/10/20 24 Active metFORMIN (GLUCOPHAGE) 1,000 mg tabletIndications: Coronary artery disease involving [place] coronary artery of [place] heart without angina pectoris,Type 2 diabetes mellitus without complication, unspecified whether dedicated 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 use (HCC) Take 1 Tablet by mouth Twice a day. 180 Tablet 3 05/10/20 24 Active lisinopriL (PRINIVIL) 10 mg tabletIndications: Coronary artery disease involving [place] coronary artery of [place] heart without angina pectoris Take 0.5 Tabs by mouth Once Daily. 90 Tablet 3 05/10/20 24 Active atorvastatin (LIPITOR) 40 mg tabletIndications: Coronary artery disease involving [place] coronary artery of [place] heart without angina pectoris Take 1 Tablet by mouth At bedtime. 90 Tablet 3 05/10/20 24 Active omeprazole (PRILOSEC) [address] capsuleIndications :Gastroesophageal reflux disease with esophagitis without hemorrhage Take 1 Capsule by mouth Once Daily. 90 Capsule 3 05/10/20 24 Active amLODIPine (NORVASC) 2.5 mg tabletIndications: Hypertension, unspecified type,Shortness of breath Take 1 Tablet by mouth Once Daily. 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 90 Tablet 3 05/10/20 24 Active isosorbide mononitrate (IMDUR) 30 mg CR tabletIndications: Stable angina pectoris,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, without long-term current use of insulin (HCC),Essential hypertension Take 1 Tablet by mouth Once Daily. 90 Tablet 09/24/19 25 Active metoprolol succinate ER (TOPROL XL) 50 mg 24 hr tabletIndications: Coronary artery disease involving [place] coronary artery of [place] heart without angina pectoris,Palpitati ons,Shortness of breath Take 1 Tablet by mouth Once Daily. 90 Tablet 11/12/19 25 Active metoprolol (TOPROL XL) 50 mgIndications:Salome nary artery disease involving [place] coronary artery of [place] heart without angina pectoris,Palpitati ons,Shortness of breath Take 1 Tablet by mouth Once Daily. 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 Hx of adenomatous colonic polyps 11/13/2020 Overview (11/13/2020): Added automatically from request for surgery [id number] Gastroesophageal reflux dise ase with esophagitis without hemorrhage 11/13/2020 Overview (11/13/2020): Added automatically from request for surgery [id number] Other emphysema 01/19/2018 Coronary artery disease involving [place] coronar y artery 03/26/2017 S/P coronary artery stent placement 03/26/2017 JEAN-BAPTISTE (dyspnea on exertion) 02/27/2017 Chest pain on exertion 01/16/2017 ED (erectile dysfunction) 02/16/2015 Absolute anemia 01/23/2015 History of smoking 05/28/2012 HTN (hypertension) 05/28/2012 Dyslipidemia 05/28/2012 S/P TURP (status post transurethral resection of prostate) 09/28/2010 DM (diabetes mellitus) 09/28/2010 Diverticulosis 09/28/2010 Chronic pain 12/25/2008 Insomnia 12/25/2008 Anxiety 12/25/2008 Resolved Problems Problem Noted Date Diagnosed Date Resolved Date Atypical chest pain 02/16/2015 02/28/20 17 Pre-syncope 05/28/2012 12/21/2012 Encounters Date Type Department Care Team Description 11/10/2024 Refill [facility] [address] [place] [address] [place] [address] Tiffanie Avery MD Coronary artery disease involving [place] coronary artery of [place] heart without angina pectoris; Palpitations; Shortness of breath 09/23/2024 Refill [facility] [address] [place] [facility] [address] Julio Samayoa APRN Stable angina pectoris; 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, without long-term current use of insulin (HCC); Essential hypertension from Last 3 Months Immunizations Immunization Administration Dates Next Due 20-VALENT Pneumococcal CONJUGATE 09/16/2022 AFLURIA .5mL QS FLU VACCINE 5yr+ SDS 04/04/2011 [id number] & [id number] FLUZONE, AFL URIA 0.25mL 6-35mos QS, .50mL 3YR+ QV MDV 04/01/2019 [id number] Fluzone 0.7ml QS Flu Vaccine 65yr+ Sds High-dose 04/02/2022,04/04/2021 Moderna SARS-COV-2 Vaccination Full Dose 021,10/04/2020 Moderna SARS-COV-2 Vaccine Booster Half Dose 0.2 5mL 04/04/2021 Pneumococcal POLYSACCHARIDE (23 POLYVALENT) 09/2021,09/24/2011 Tdap 01/30/2022,11/21/2011 Zoster Recombinant (Shingrix) 05/29/2021 pneumococcal CONJUGATE (13 VALENT) 01/20/2018 Family History Medical History Relation Name Comments Diabetes Brother Stroke Father Cancer Mother Diabetes Mother Diabetes Sister Heart Disease Sister Relation Name Status Comments Brother Father Mother Sister Social History Tobacco Use Types Packs/Day Years Used Date Smoking Tobacco: Former Cigarettes 1 20 1 - 03/15/1986 Smokeless Tobacco: Never Tobacco Cessation:Counseling Given: Not Answered Alcohol Use Standard Drinks/Week Comments No 0 (1 standard drink = 0.6 oz pur e alcohol) [facility] [employer] Answer Date Recorded In the past 12 months has [facility] Myreks, gas, oil, or water [employer] threatened to shut off services in your home? No 05/10/2024 Humiliation, Afraid, Rape, and Kick questionnair e Answer Date Recorded Within the last year, have y ou been afraid of your partner or ex-partner? No 05/10/2024 Within the last year, have y ou been humiliated or emotionally abused in other ways by your partner or ex-partner? No Within the last year, have y ou been kicked, hit, slapped, or otherwise physically hurt by your partner or ex-partner? No 05/10/2024 Within the last year, have y ou been raped or forced to have any kind of sexual activity by your partner or ex-partner? No 05/10/2024 PHQ-2 Answer Date Recorded PHQ-2 SCORE 0 05/10/2024 Hunger Vital Sign Answer Date Recorded Within the past 12 months, y ou worried that your food would run out before you got the money to buy more. Never true 05/10/20 24 Within the past 12 months, t he food you bought just didn't last and you didn't have money to get more. Never true 05/10/2024 PRAPARE - Transportation Answer Date Re corded In the past 12 months, has l ack of transportation kept you from medical appointments or from getting medications? No 04/24 In the past 12 months, has l ack of transportation kept you from meetings, work, or from getting things needed for daily living? No 05/10/2024 Housing Stability Vital Sign Answer [place] e Recorded Unable to Pay for Housing in the Last Year Not o n file 12/29/2023 Number of Places Lived in the Last Year Not on f ile 12/29/2023 In the last 12 months, was t here a time when you did not have a steady place to sleep or slept in a skilled nursing (including now)? No 12/29/2023 Housing Stability Vital Sign Answer [place] e Recorded In the last 12 months, was t here a time when you were not able to pay the mortgage or rent on time? No 05/10/2024 In the past 12 months, how m any times have you moved where you were living? 0 05/10/2024 At any time in the past 12 m [facility], were you homeless or living in a skilled nursing (including now)? No 05/10/2024 Sex and Gender Information Value Date Recorded Sex Assigned at Not on file Legal Sex Male 9:36 PM EST Gender Identity Not on file Sexual Orientation Not on file Last Filed Vital Signs Vital Sign Reading Time Taken Comments Blood Pressure 128/64 05/10/2024 12:09 PM EST Pulse 77 05/10/2024 12:09 PM EST Temperature 36.4 C (97.5 F) 05/10/2024 12:09 PM EST Respiratory Rate 18 05/10/2024 12:09 PM EST Oxygen Saturation 98% 05/10/2024 12:09 PM EST Inhaled Oxygen Concentration - - Weight 73.9 kg (163 lb) 05/10/2024 12:09 PM EST Height 175.3 cm (5' 9 ) 05/10/2024 12:09 PM EST Body Mass Index 24.07 05/10/2024 12:09 PM EST Plan of Treatment Upcoming Encounters Date Type Department Care Team (Late st Contact Info) Description 12/05/2024 9:30 AM EDT Office Visit [facility] [address], [address] [place] [address] Max Marcos, RESIDENTIAL AIDE [address] [place] [address],[address] [place] [address] Health Maintenance Due Date Last Done Comments HEP C SCREENING 1945 Shingles Vaccine (Shingrix) (2 of 2) 07/24/2021 05/29/2021 ANNUAL DIABETIC EYE EXAM 08/27/2023 023, 07/13/2017 (Previously completed), 04/26/2015 (Declined), Additional history exists ANNUAL WELLNESS EXAM 09/18/2023 09/16/2022, 04/04/2021, 04/04/2021, Additional history exists COVID-19 Vaccine ( season) 2024 04/04/2021, 11/01/2020, 10/04/2020 ANNUAL DIABETIC URINE MICROALBUMIN 02/13/2024 02/12/2023, 04/02/2022, 09/26/2020, Additional history exists HEMOGLOBIN A1C EVERY 6 MO 11/08/20242023, 12/03/2023, 10/06/2023, Additional history exists INFLUENZA VACCINE (#1) 2025 , 04/04/2021, 04/01/2019, Additional history exists DTAP/TDAP/TD VACCINE (3 - Td or Tdap) 01/31/2032 01/30/2022, 11/21/2011 FIT Discontinued 03/20/2015, 02/01/2015 COLONOSCOPY Discontinued 12/18/2020, 11/23, 09/11/2014, Additional history exists Colorectal Screening Combination Discontinued PNEUMOCOCCAL VACCINE 65+ YEARS Completed 09/16/2022, 05/29/2021, 01/20/2018, Additional history exists COLOGUARD Discontinued HEP A VACCINE Aged Out No longer elig ible based on patient's age to complete this topic HIB VACCINE Aged Out No longer eligi ble based on patient's age to complete this topic ROTOVIRUS VACCINE Aged Out No longer eligible based on patient's age to complete this topic SIGMOIDOSCOPY Discontinued Medical Devices Implanted Type Area Car Porter Device Identifier Shelf Expiration Date Model / Serial / Lot Suture Ultrafix Stitchpak [place] Rc Implanted:Qty: 1 on 05/27/2011 at [facility] [place] Right: Shoulder [facility] [id number] / / [id number] Suture Ultrafix Stitchpak [place] Rc Implanted:Qty: 1 on 05/27/2011 at [facility] [place] Right: Shoulder [facility] [id number] / / [id number] Suture Ultrafix Stitchpak [place] Rc Implanted:Qty: 1 on 05/27/2011 at [facility] [place] Right: Shoulder [facility] [id number] / / [id number] Stent Implanted:Qty: 1 on 03/25/2017 by Joann Ayoub MD at [facility] [place] [id number] / / [id number] Mesh 3d Max Rt Lg 4x6 Lap Hernia 1/Cs Implanted:Qty: 1 on 07/29/2021 by Serafin Griffin MD at [facility] [place] Right: Abdomen DAVOL 02/19/2026 [id number] / / [id number] Securestrap Absorb Fixtn Devic Bx6 Implanted:Qty: 1 on 07/29/2021 by Serafin Griffin MD at [facility] [place] Right: Abdomen ETHICON 02/21/2023 [id number] / / [id number] 2.50 X 22mm [employer] Dickinson Rx C Implanted:Qty: 1 on 12/02/2023 by Joann Ayoub MD at [facility] [place] [employer] 08/14/2026 [id number] / / [id number] Procedures Procedure Name Priority Date/Time Associated Diagnosis Comments HEMOGLOBIN A1C Routine 05/10/2024 12:33 PM EST Type 2 diabetes mellitus without complication, unspecified whether custodial insulin use MICROALBUMIN,RANDOM URINE (INCLUDES CREATININE W/RATIO) Routine 02/12/2023 2:14 PM EDT Type 2 diabetes mellitus without complication, unspecified whether dedicated 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 use [facility] COLONOSCOPY Routine 12/18/2020 1:11 PM EDT OCCULT BLOOD (FIT), STOOL Routine 03/20/2015 3:47 PM EDT Guaiac + stool from Last 3 Months or Most Recently Relevant to Health Maintenance Results * (ABNORMAL) Hemoglobin A1C (05/10/2024 12:33 PM EST) HEMOGLOBIN A1C 7.4(H) 3.0 - 6.0 % 05/10/2024 4:57 PM EST [facility] 05/10/2024 12:3 3 PM EST 05/10/2024 4:48 PM EST Narrative [facility] - 05/10/2024 4:57 PM EST NO KNOWN ALLERGIES us Julio Samayoa APRN CHEMISTRY ORDERABLES Final Res ult Performing Organization Address City/State/[facility] Co de Phone Number [facility] [address] [facility] [address] [place] [address] * (ABNORMAL) Microalbumin, Random Urine (02/12/2023 2:14 PM EDT) CREATININE URINE 87.0 mg/dL 02/13/20 10:14 PM EDT [facility] MICROALBUMIN,U,RANDO M 2.90(H) 0.00 - 1.80 mg/dL 02/12/2023 10:14 PM EDT [facility] MICROALB CREAT RATIO 33.3 ug/mg 01/24 10:14 PM EDT [facility] Comment: CATEGORY SPOT COLLECTION Normal <30 ug/mg creatinine Microalbuminuria 30-300 ug/mg creatinine Clinical albuminuria >300 ug/mg creatinine 02/12/2023 2:14 PM EDT 02/12/2023 9:50 PM EDT Narrative [facility] - 02/12/2023 10:14 PM EDT NO KNOWN ALLERGIES us Tiffanie Avery MD CHEMISTRY ORDERABLES Final Resul t [facility] [address] [address] [facility] [address] [facility] [address] * [facility] COLONOSCOPY (12/18/2020 1:11 PM EDT) 12/18/2020 1:11 PM EDT Narrative [facility] - 12/18/2020 2:07 PM EDT Patient Name: Weston Parson Procedure Date: 12/18/2020 1:11 PM Date of : 1945 Gender: Male Age: 75 Attending MD: NICHOLAS MARTINEZ MD Procedure: Colonoscopy Indications: High risk colon cancer surveillance: Personal history of sessile serrated colon polyp (10 mm or greater in size) Providers: NICHOLAS MARTINEZ MD Referring MD: Requesting Provider: Medicines: Propofol per Anesthesia Complications: No immediate complications. Procedure: Pre-Anesthesia Assessment: - Prior to the procedure, a History and Physical was performed, and patient medications and allergies were reviewed. The patient's tolerance of previous anesthesia was also reviewed. The risks and benefits of the procedure and the sedation options and risks were discussed with the patient. All questions were answered, and informed consent was obtained. Prior Anticoagulants: The patient has taken aspirin, last dose was 1 day prior to procedure. ASA Grade Assessment: III - A patient with severe systemic disease. After reviewing the risks and benefits, the patient was deemed in satisfactory condition to undergo the procedure. - Prior to the procedure, a History and Physical was performed, and patient medications and allergies were reviewed. The patient's tolerance of previous anesthesia was also reviewed. The risks and benefits of the procedure and the sedation options and risks were discussed with the patient. All questions were answered, and informed consent was obtained. Prior Anticoagulants: The patient has taken aspirin, last dose was 1 day prior to procedure. ASA Grade Assessment: III - A patient with severe systemic disease. After reviewing the risks and benefits, the patient was deemed in satisfactory condition to undergo the procedure. After I obtained informed consent, the patient was carefully attached to monitoring devices. placed in the left lateral position and the scope was passed under direct vision. Throughout the procedure, the patient's blood pressure, pulse, and oxygen saturations were monitored continuously. The Olympus [id number] ([id number]) colonoscope was introduced through the anus and advanced to the cecum, identified by appendiceal orifice and ileocecal valve. The colonoscopy was performed without difficulty. The patient tolerated the procedure well. The quality of the bowel preparation was evaluated using the BBPS (Leming Bowel Preparation Scale) with scores of: Right Colon = 2 (minor amount of residual staining, small fragments of stool and/or opaque liquid, but mucosa seen well), Transverse Colon = 2 (minor amount of residual staining, small fragments of stool and/or opaque liquid, but mucosa seen well) and Left Colon = 1 (portion of mucosa seen, but other areas not well seen due to staining, residual stool and/or opaque liquid). The total BBPS score equals 5. The quality of the bowel preparation was fair. The ileocecal valve, appendiceal orifice, and rectum were photographed. Findings: The perianal and digital rectal examinations were normal. A few small-mouthed diverticula were found in the sigmoid colon. The lumen of the transverse colon, hepatic flexure and ascending colon was mildly dilated. A tattoo was seen in the mid descending colon. A post-polypectomy scar was found at the tattoo site. There was no evidence of residual polyp tissue. A 3 to 4 mm polyp was found in the sigmoid colon. The polyp was sessile. The polyp was removed with a jumbo cold forceps. Resection and retrieval were complete. Internal hemorrhoids were found during retroflexion. The hemorrhoids were Grade I (internal hemorrhoids that do not prolapse). One small angiodysplastic lesion was found in the cecum. Impression: - Preparation of the colon was fair. - Diverticulosis in the sigmoid colon. - Dilated in the transverse colon, at the hepatic flexure and in the ascending colon. - A tattoo was seen in the mid descending colon. A post-polypectomy scar was found at the tattoo site. There was no evidence of residual polyp tissue. - One 3 to 4 mm polyp in the sigmoid colon, removed with a jumbo cold forceps. Resected and retrieved. - Internal hemorrhoids. - One colonic angiodysplastic lesion. Recommendation: - Discharge patient to home. - Resume previous diet. - Continue present medications. - Repeat colonoscopy in 5 years for surveillance. - Return to physician pastrycook's assistant in 6 weeks. - Await pathology results. Nicholas Martinez MD NICHOLAS MARTINEZ MD 12/18/2020 2:07:34 PM This report has been signed electronically. Number of Addenda: 0 Note Initiated On: 12/18/2020 1:11 PM Scope Withdrawal Time 0 hours 8 minutes 54 seconds Total Procedure Duration Time 0 hours 13 minutes 2 seconds Estimated Blood Loss: Estimated blood loss was minimal. us Nicholas Martinez MD [facility] GI Final Result [facility] [id number] [place] [address] * Occult Blood, Stool (03/20/2015 3:47 PM EDT) OCCULT BLOOD NEGATIVE NEGATIVE 03/20/2015 7:55 PM EDT [facility] Comment:Methology: qualitati ve immunochemical. Stool (Stool) 03/20/2015 3: 47 PM EDT 03/20/2015 6:43 PM EDT Narrative [facility] - 03/20/2015 7:[address]T Fax to Dr. Charlie Ayala us Charlie Ayala PA-C URINE ORDERABLES Final Resu lt [facility] [address] [place] [address] from Last 3 Months or Most Recently Relevant to Health Maintenance Insurance [employer] BLUE MEDICARE ACCESS MEDICARE ACCESS [employer]UE MEDICARE ACCESS Advance Directives * Full Code (Latest Code Status on File) Date Activated Date Inactivated Comments 12/02/2023 11:04 AM 12/03/2023 4:25 PM * Full Code Date Activated Date Inactivated Comments 07/29/2021 12:09 PM 07/29/2021 9:16 PM * Full Code Date Activated Date Inactivated Comments 12/18/2020 12:05 PM 12/18/2020 6:34 PM * Full Code Date Activated Date Inactivated Comments 06/11/2018 5:22 PM 06/12/2018 12:25 AM * Full Code Date Activated Date Inactivated Comments 03/25/2017 7:03 PM 03/26/2017 4:01 PM Care Teams Machine Builder Relationship Specialty Start Date End Date Tiffanie Avery MD [address] [place] [address] PCP - General Family Medicine 12/22/23 Stew Hankins III, MD Gastroenterology 10/25/10 Kirby Kaur MD [address] [place], [place] [id number] Family Medicine 12/23/11 Nicholas Martinez MD [address] [place], [place] [id number] Gastroenterology 08/08/14 Charlie Ayala PA-C [address] [place] [address] Physician Framing Mill Operator 02/05/15 Sully Castillo LPN 02/22/15 Florin Vicente MD [address] [facility] [address] [place] [id number] Pulmonary Disease 01/19/18 Sindi Mcfarland MA 09/22/18 Mao Powell MD [address] [place] [address] [place] [address] Orthopedic Surgery 05/22/21 Jeff Douglas MD [address] [place] [address] [address] Orthopedic Surgery 07/18/21
--- OUTSIDE RECORDS SUMMARY | 2024-11-28 11:12 | XMS_ITS | Encounter Summary ---
Author Organization [facility] Address [address] [place] [address] Care Team Providers Care Chrome Polisher Name Role Phone Nhi AZUL MD, Stew Gonzales Unavailable Haven Kirby Bustamante MD Unavailable Nicholas Cristobal MD Unavailable Charlie Ayala PA-C Unavailable Sully Castillo LPN Unavailable Unavailable Florin Vicente MD Unavailable Tiffanie Avery MD Primary Care Provider [phone] Sindi Mcfarland MA Unavailable Unavailable Mao Powell MD Unavailable Jeff Douglas MD Unavailable Tiffanie Avery MD Primary Care Provider [phone] Encounter Details Date Type Department Care Team (Late st Contact Info) Description 12/23/2021 Telephone [facility] [address] [place] [address] [place] [address] Tiffanie Avery MD [address] [place] [address] Social History Tobacco Use Types Packs/Day Years [...] encounter Miscellaneous Notes * Telephone Encounter - Debbie Urias LPN - 12/25/2021 2:10 PM EDT Please transfer patient to clinic if he calls back. * Telephone Encounter - Marli Miller - 12/25/2021 9:56 AM EDT Pt aware of message, I would suggest a nurse call and talk to the pt because he has me very confused and when I tried to clarify he just got upset that I was not understanding. He went on about how he has not been taking the Farxiga for 2 months, and the pharmacy shorted him 60 pills of his metformin and so he was unable to get more when he was due. Please contact pt back to further discuss this. * Telephone Encounter - Debbie Urias LPN - 12/24/2021 11:45 AM EDT Left message on voice mail. * Telephone Encounter - Tiffanie Avery MD - 12/24/2021 10:19 AM EDT Please advise that while it typically isn't done often, there are no medication interactions between those medications. They are different classes of medications. There are so many orals because we have been trying to avoid doing insulin due to his job. Sent in the 10mg ambien * Telephone Encounter - Zo Myers - 12/23/2021 2:00 PM EDT Pt called and stated that the the pharmacy told him that he can't take dapagliflozin (FARXIGA) 5 mg tablet 90 Tablet 3 01/17/2021 Sig - Route: Take 1 Tablet by mouth Everymorning. - Oral Sent to pharmacy as: dapagliflozin 5 mg tablet (FARXIGA) and Sitagliptin / Metformin (Janumet) together and he wants to know if he can? He has a supply of them and can't take the metformin he stated. Please call and advise patient. Also, patient is requesting that he be prescribe 10mg ambien instead of 5mg. [phone]. documented in this encounter Plan of Treatment Upcoming Encounters Date Type Department Care Team (Late st Contact Info) Description 12/05/2024 9:30 AM EDT Office Visit [facility] [address], [address] [place] [address] Marcos Santana APRN [address] [place], [place] [address] [address] [place], [place] [id number] documented as of this encounter Visit Diagnoses Diagnosis Insomnia, unspecified type documented in this encounter Additional Health Concerns Assessment Noted Time PHQ-9 Depression Total Score: 0 04/01/20 19 2:31 PM EST documented as of this encounter Care Teams Chrome Polisher Relationship Specialty Start Date End Date Tiffanie Avery MD [address] [place] [address] PCP - General Family Medicine 01/20/18 10/28/23 Tiffanie Avery MD [address] [place] [address] PCP - General Family Medicine 12/22/23 Stew Hankins III, MD Gastroenterology 10/25/10 Kirby Kaur MD [address] [place], [place] [address] Family Medicine 12/23/11 Nicholas Cristobal MD [address] [place] [address] [place] [address] Gastroenterology 08/08/14 Charlie Ayala PA-C [address] [place] [address] Physician Supervisor Building Maintenance 02/05/15 Sully Castillo LPN 02/22/15 [place] [address] [place] [address] [address] Pulmonary Disease 01/19/18 Sindi Mcfarland MA 09/22/18 Mao Powell MD [address] [place] [address] [address] Orthopedic Surgery 05/22/21 Jeff Douglas MD [address] [place] [address] [address] Orthopedic Surgery 07/18/21 documented as of this encounter
--- OUTSIDE RECORDS SUMMARY | 2024-11-28 11:12 | XMS_ITS | Encounter Summary ---
Author Organization [facility] Address [address] [place] [address] Care Team Providers Care Pie Icer Machine Name Role Phone Nhi AZUL MD, Stew Gonzales Unavailable Haven Kirby Bustamante MD Unavailable Nicholas Cristobal MD Unavailable Charlie Ayala PA-C Unavailable Sully Castillo LPN Unavailable Unavailable Florin Vicente MD Unavailable Tiffanie Avery MD Primary Care Provider [phone] Sindi Mcfarland MA Unavailable Unavailable Mao Powell MD Unavailable [phone] Jeff Douglas MD Unavailable [phone] Tiffanie Avery MD Primary Care Provider [phone] Encounter Details Date Type Department Care Team (Late st Contact Info) Description 09/25/2020 Telephone [facility] [address] [place] [address], [address] [address] Nicholas Cristobal MD [address] [place], [place] [id number] Social History Tobacco Use Types Packs/Day Years [...] on file Sexual Orientation Not on file COVID-19 Exposure Response Date Recorded In the last month, have you been in contact with someone who was confirmed or suspected to have Coronavirus / COVID-19? No / Unsure 09/26/2020 9:27 AM EDT documented as of this encounter Miscellaneous Notes * Telephone Encounter - Ladonna Stokes LPN - 09/26/2020 12:18 PM EDT LVM that appointment has been made for tomorrow and to call if he can not keep it. * Telephone Encounter - Jason Li - 09/25/2020 5:22 PM EDT Patient is having dark stool and diarrhea with weakness. He is wanting to know if he can get an appointment for a colonoscopy. Unsure if he would need an appointment first or not. Please advise, thank you. documented in this encounter Plan of Treatment Upcoming Encounters Date Type Department Care Team (Late st Contact Info) Description 12/05/2024 9:30 AM EDT Office Visit [facility] [address] [place] [address] Marcos Santana APRN [address] [place], [place] [address] [place] [id number] documented as of this encounter Visit Diagnoses Not on filedocumented in this encounter Additional Health Concerns Assessment Noted Time PHQ-9 Depression Total Score: 0 04/01/20 19 2:31 PM EST documented as of this encounter Care Teams Pie Icer Machine Relationship Specialty Start Date End Date Tiffanie Avery MD [address] [place] [address] PCP - General Family Medicine 01/20/18 10/28/23 Tiffanie Avery MD [address] [facility] [place] [address] PCP - General Family Medicine 12/22/23 Stew Hankins III, MD Gastroenterology 10/25/10 Kirby Kaur MD [address] [place] [address] [place] [address] Family Medicine 12/23/11 Nicholas Cristobal MD [address] [place] [address] [address] [place] [address] Gastroenterology 08/08/14 Charlie Ayala, TORIC [address] [place] [address] [address] [place] [address] Physician Investor 02/05/15 Sully Castillo LPN 02/22/15 [place] [address] [place] [address] [place] [address] Pulmonary Disease 01/19/18 Sindi Mcfarland MA 09/22/18 Mao Powell MD [address] [place] [address] [address] Orthopedic Surgery 05/22/21 Jeff Douglas MD [address] [place] [address] [address] Orthopedic Surgery 07/18/21 documented as of this encounter
--- OUTSIDE RECORDS SUMMARY | 2024-11-28 11:12 | XMS_ITS | Encounter Summary ---
Author Organization [facility] Address [address] [place] [address] Care Team Providers Care Computer Architect Name Role Phone Nhi AZUL MD, Stew Gonzales Unavailable Haven Kirby Bustamante MD Unavailable [phone] Nicholas Cristobal MD Unavailable Charlie Ayala PA-C Unavailable Sully Castillo LPN Unavailable Unavailable Julio Samayoa APRN Primary Care Provider [phone] Julio Samayoa APRN Primary Care Provider Florin Vicente MD Unavailable Tiffanie Avery MD Primary Care Provider [phone] Sindi Mcfarland MA Unavailable Unavailable Mao Powell MD Unavailable [phone] Jeff Douglas MD Unavailable [phone] Tiffanie Avery MD Primary Care Provider [phone] Reason for Visit * Reason Onset Date Comments Results - Lab 08/07/2016 Encounter Details Date Type Department Care Team (Late st Contact Info) Description 08/07/2016 Telephone [facility] [address] [place] [address] Julio Samayoa APRN [address] [place] [address] Results - Lab Social History Tobacco Use Types Packs/Day Years [...] encounter Miscellaneous Notes * Telephone Encounter - Liza Queen RN - 08/07/2016 11:58 AM EDT Notes Recorded by Julio Samayoa APRN on 07/31/2016 at 4:20 PM ALB - elevated, pt's MERA was increased from 10 to 20 mg daily A1C - at goal CMP - -no changes of concern. Lipid - normal * Telephone Encounter - Liza Queen RN - 08/07/2016 11:58 AM EDT ----- Message from Ileana Lemon sent at 08/07/2016 11:01 AM EDT ----- Regarding: Results- Lab Contact: Patient called in wanted to go over lab results from 07/31/16; please review and advise thank you documented in this encounter Plan of Treatment Upcoming Encounters Date Type Department Care Team (Late st Contact Info) Description 12/05/2024 9:30 AM EDT Office Visit [facility] [address], [address] [place] [address] Marcos Santana APRN [address] [place] [address] [address] [place] [address] documented as of this encounter Visit Diagnoses Not on filedocumented in this encounter Care Teams Computer Architect Relationship Specialty Start Date End Date Julio Samayoa APRN [address] [place] [address] PCP - General nurse practitioner adult care 04/26/15 01/19/17 Julio Samayoa APRN [address] [facility] [place] [address] PCP - General Family Practice 01/20/17 01/19/18 Tiffanie Avery MD [address] [place] [address] PCP - General Family Medicine 01/20/18 10/28/23 Tiffanie Avery MD [address] [place] [address] [id number] PCP - General Family Medicine 12/22/23 Stew Hankins III, MD Gastroenterology 10/25/10 Kirby Kaur MD [address] [place], [place] [address] [place] [address] Family Medicine 12/23/11 Nicholas Cristobal MD [address] [place] [address] [address] [place] [address] Gastroenterology 08/08/14 Charlie Ayala, PA-C [address] [place] [address] Physician Mechanic Welder 02/05/15 Sully Castillo LPN 02/22/15 [place] [address] [place] [address] [address] [place] [address] Pulmonary Disease 01/19/18 Sindi Mcfarland MA 09/22/18 Mao Powell MD [address] [place] [address] Orthopedic Surgery 05/22/21 Jeff Douglas MD [address] [place] [address] Orthopedic Surgery 07/18/21 documented as of this encounter
--- OUTSIDE RECORDS SUMMARY | 2024-11-28 11:12 | XMS_ITS | Encounter Summary ---
Author Organization [facility] Address [address] [place] [address] Care Team Providers Care Solid Waste Technician Name Role Phone Nhi AZUL MD, Stew Gonzales Unavailable Haven Kirby Bustamante MD Unavailable [phone] Nicholas Cristobal MD Unavailable Charlie Ayala PA-C Unavailable Sully Castillo LPN Unavailable Unavailable Julio Samayoa APRN Primary Care Provider [phone] Julio Samayoa APRN Primary Care Provider Florin Vicente MD Unavailable Tiffanie Avery MD Primary Care Provider [phone] Sindi Mcfarland MA Unavailable Unavailable Mao Powell MD Unavailable [phone] Jeff Douglas MD Unavailable [phone] Tiffanie Avery MD Primary Care Provider Reason for Visit * Reason Onset Date Comments Medication Clarification 08/08/2016 Encounter Details Date Type Department Care Team (Late st Contact Info) Description 08/08/2016 Telephone [facility] [address] [place] [address] Julio Samayoa APRN [address] [place] [address] Medication Clarification Social History Tobacco Use Types Packs/Day Years [...] encounter Miscellaneous Notes * Telephone Encounter - Luna Frederick - 08/14/2016 3:44 PM EDT Pt aware. States he has 11 refills left on the 10mg tablets so he is just going to take them.. Instructed pt. To keep a log on his bp and to fu as needed. * Telephone Encounter - Catia Watters - 08/08/2016 12:45 PM EDT Patient called in stating he has not been taking his lisinopril (PRINIVIL, ZESTRIL) 10 mg tablet regularly for the last two months. Patient states that previously he was taking .5 tablets of Lisinopril 10 mg as previous provider (Cody) told him it was ok to break the 10's in half for the last twoyear. Patient states he was only taking the half tablets one to two times a week for the last two months. Patient would like to have a prescription for Lisinopril 5 mg or Lisinopril 10 mg and he could break those in half. Patient stated he started taking Lisinopril 5 mg yesterday and wants to take that for a month and then come back in and talk to the provider. Patient stated he would like to have the new prescription by the first of the week. Please advise patient. documented in this encounter Plan of Treatment Upcoming Encounters Date Type Department Care Team (Late st Contact Info) Description 12/05/2024 9:30 AM EDT Office Visit [facility] [address], [address] [place] [address] Marcos Santana APRN [address] [place] [address] documented as of this encounter Visit Diagnoses Not on filedocumented in this encounter Care Teams Solid Waste Technician Relationship Specialty Start Date End Date Julio Samayoa APRN [address] [place] [address] PCP - General nurse practitioner adult care 04/26/15 01/19/17 Julio Samayoa APRN [address] [place] [address] PCP - General Family Practice 01/20/17 01/19/18 Tiffanie Avery MD [address] [place] [id number] PCP - General Family Medicine 01/20/18 10/28/23 Tiffanie Avery MD [address] [place] [address] PCP - General Family Medicine 12/22/23 Stew Hankins III, MD Gastroenterology 10/25/10 Kirby Kaur MD [address] [place] [address] Family Medicine 12/23/11 Nicholas Cristobal MD [address] [place] [address] Gastroenterology 08/08/14 Charlie Ayala PA-C [address] [place] [address] Physician Supervisor Adult Education 02/05/15 Sully Castillo LPN 02/22/15 Florin Vicente MD [address] [facility] [place] [address] Pulmonary Disease 01/19/18 Sindi Mcfarland MA 09/22/18 Mao Powell MD [address] [place] [address] [place] [address] Orthopedic Surgery 05/22/21 Jeff Douglas MD [address] [place] [address] [place] [address] Orthopedic Surgery 07/18/21 documented as of this encounter
--- OUTSIDE RECORDS SUMMARY | 2024-11-28 11:12 | XMS_ITS | Encounter Summary ---
Author Organization [facility] Address [address] [place] [address] Care Team Providers Care Granulator Tender Name Role Phone Nhi AZUL MD, Stwe Gonzales Unavailable Haven Kirby Bustamante MD Unavailable Nicholas Cristobal MD Unavailable Charlie Ayala PA-C Unavailable [phone] Sully Castillo LPN Unavailable Unavailable Julio Samayoa APRN Primary Care Provider [phone] Florin Vicente MD Unavailable Tiffanei Avery MD Primary Care Provider [phone] Sindi Mcfarland MA Unavailable Unavailable Mao Powell MD Unavailable [phone] Jeff Douglas MD Unavailable [phone] Tiffanie Avery MD Primary Care Provider [phone] Encounter Details Date Type Department Care Team (Late st Contact Info) Description 03/16/2017 Telephone [facility] [address], [address] [place] [address] Taya Dumont LPN Social History Tobacco Use Types Packs/Day [...] Telephone Encounter - Taya Dumont LPN - 03/16/2017 1:35 PM EDT Pt is requesting you call him and discuss ct results prior to cath documented in this encounter Plan of Treatment Upcoming Encounters Date Type Department Care Team (Late st Contact Info) Description 12/05/2024 9:30 AM EDT Office Visit [facility] [address], [address] [place] [address] Marcos Santana APRN [address] [place] [address],[address] [place], [place] [phone] documented as of this encounter Visit Diagnoses Not on filedocumented in this encounter Care Teams Granulator Tender Relationship Specialty Start Date End Date Julio Samayoa APRN [address] [place] [address] PCP - General Family Practice 01/20/17 01/19/18 Tiffanie Avery MD [address] [place] [address] PCP - General Family Medicine 01/20/18 10/28/23 Tiffanie Avery MD [address] [place] [address] PCP - General Family Medicine 12/22/23 Stew Hankins III, MD Gastroenterology 10/25/10 Kirby Kaur MD [address] [place] [address] [address] [place] [address] Family Medicine 12/23/11 Nicholas Cristobal MD [address] [place] [address] [address] [place] [address] Gastroenterology 08/08/14 Charlie Ayala PA-C [address] [place] [address] [address] [place] [address] Physician Satellite Technician 02/05/15 Sully Castillo LPN 02/22/15 Florin Vicente MD [address] [facility] [address] [address] Pulmonary Disease 01/19/18 Sindi Mcfarland MA 09/22/18 Mao Powell MD [address] [place] [address] [place] [address] Orthopedic Surgery 05/22/21 Jeff Douglas MD [address] [place] [address] [address] Orthopedic Surgery 07/18/21 documented as of this encounter
--- OUTSIDE RECORDS SUMMARY | 2024-11-28 11:12 | XMS_ITS | Encounter Summary ---
Author Organization [facility] Address [address] [place] [address] Care Team Providers Care Herbicide Sprayer Name Role Phone Nhi AZUL MD, Morris Wilson Unavailable Haven Kirby Bustamante MD Unavailable Nicholas Cristobal MD Unavailable Charlie Ayala PA-C Unavailable Sully Castillo LPN Unavailable Unavailable Florin Vicente MD Unavailable Tiffanie Avery MD Primary Care Provider [phone] Sindi Mcfarland MA Unavailable Unavailable Mao Powell MD Unavailable [phone] Jeff Douglas MD Unavailable [phone] Tiffanie Avery MD Primary Care Provider [phone] Encounter Details Date Type Department Care Team (Late st Contact Info) Description 09/26/2020 Telephone [facility] [address] [place] [address], [address] [address] Charlie Ayala PA-C [address] [place], [place] [id number] Social History Tobacco Use Types Packs/Day Years [...] encounter Miscellaneous Notes * Telephone Encounter - Yocasta Larson - 09/26/2020 12:28 PM EDT Patient called and had to reschedule his appointment with Ervin tomorrow. He said he has another appointment he has to go out of town for and wouldn't have been able to make it. We got him rescheduledfor October and added him to the wait list put he said he has been having so many issues that he wanted to see about getting in sooner. He said he is just exhausted all the time and whenever he goes to the bathroom it is just like water. He would like a call back to discuss maybe getting a sooner appointment. Thank you. documented in this encounter Plan of Treatment Upcoming Encounters Date Type Department Care Team (Late Contact Info) Description 12/05/2024 9:30 AM EDT Office Visit [facility] [address] [place] [address] Marcos Santana, ANIMATION CAMERA OPERATOR [address] [place], [place] [address] [place] [address] documented as of this encounter Visit Diagnoses Not on filedocumented in this encounter Additional Health Concerns Assessment Noted Time PHQ-9 Depression Total Score: 0 04/01/20 19 2:31 PM EST documented as of this encounter Care Teams Herbicide Sprayer Relationship Specialty Start Date End Date Tiffanie Avery MD [address] [place] [address] PCP - General Family Medicine 01/20/18 10/28/23 Tiffanie Avery MD [address] [facility] [place] [address] PCP - General Family Medicine 12/22/23 Stew Hankins III, MD Gastroenterology 10/25/10 Kirby Kaur MD [address] [place] [address] [place] [address] Family Medicine 12/23/11 Nicholas Cristobal MD [address] [place] [address] [address] [place] [address] Gastroenterology 08/08/14 Charlie Ayala, TORIC [address] [place] [address] [address] [place] [address] Physician Medical Equipment Sales 02/05/15 Sully Castillo LPN 02/22/15 Florin Vicente MD [address] [facility] [place] [address] Pulmonary Disease 01/19/18 Sindi Mcfarland MA 09/22/18 Mao Powell MD [address] [place] [address] [place] [address] Orthopedic Surgery 05/22/21 Jeff Douglas MD [address] [place] [address] [address] Orthopedic Surgery 07/18/21 documented as of this encounter
--- OUTSIDE RECORDS SUMMARY | 2024-11-28 11:12 | XMS_ITS | Encounter Summary ---
Author Organization [facility] Address [address] [place] [address] Care Team Providers Care Product Marketing Executive Name Role Phone Nhi AZUL MD, Stew Gonzales Unavailable Haven Kirby Bustamante MD Unavailable [phone] Nicholas Cristobal MD Unavailable Charlie Ayala PA-C Unavailable [phone] Sully Castillo LPN Unavailable Unavailable Julio Samayoa APRN Primary Care Provider [phone] Florin Vicente MD Unavailable Tiffanie Avery MD Primary Care Provider [phone] Sindi Mcfarland MA Unavailable Unavailable Mao Powell MD Unavailable Jeff Douglas MD Unavailable [phone] Tiffanie Avery MD Primary Care Provider [phone] Reason for Visit * Reason Onset Date Comments Complete Paperwork 03/18/2017 Encounter Details Date Type Department Care Team (Late st Contact Info) Description 03/18/2017 Telephone [facility] [address] [place] [address], [address] [place] [address] Clem Westbrook MD [address] [place] [address] [address] [place] [address] Complete Paperwork Social History Tobacco Use Types Packs/Day Years [...] encounter Miscellaneous Notes * Telephone Encounter - Sindi Boyer LPN - 03/18/2017 2:39 PM EDT Returned pts call Reviewed instructions on heart cath. Pt voiced understanding. To call back prn ifmore questions. * Telephone Encounter - Taya Dumont LPN - 03/18/2017 12:51 PM EDT Transferred to [facility] in procedure office * Telephone Encounter - Emeka Li - 03/18/2017 12:46 PM EDT PT called and would like to talk to a nurse. He has some questions about his up coming heart cath and a ct scan he had done on 03/12 documented in this encounter Plan of Treatment Upcoming Encounters Date Type Department Care Team (Late st Contact Info) Description 12/05/2024 9:30 AM EDT Office Visit [facility] [address], [address] [place] [address] Marcos Santana APRN [address] [place] [address],[address] [place] [address] documented as of this encounter Visit Diagnoses Not on filedocumented in this encounter Care Teams Product Marketing Executive Relationship Specialty Start Date End Date Julio Samayoa APRN [address] [place] [address] PCP - General Family Practice 01/20/17 01/19/18 Tiffanie Avery MD [address] [place] [address] [place] [address] PCP - General Family Medicine 01/20/18 10/28/23 Tiffanie Avery MD [address] [place] [address] PCP - General Family Medicine 12/22/23 Stew Hankins III, MD Gastroenterology 10/25/10 Kirby Kaur MD [address] [place] [address] Family Medicine 12/23/11 Nicholas Cristobal MD [address] [place] [address] Gastroenterology 08/08/14 Charlie Ayala PA-C [address] [place] [address] Physician T Rail Turner 02/05/15 Sully Castillo LPN 02/22/15 Florin Vicente MD [address] [place] [address] [place] [address] Pulmonary Disease 01/19/18 Sindi Mcfarland MA 09/22/18 Mao Powell MD [address] [place] [address] Orthopedic Surgery 05/22/21 Jeff Douglas MD [address] [place] [address] Orthopedic Surgery 07/18/21 documented as of this encounter
--- OUTSIDE RECORDS SUMMARY | 2024-11-28 11:13 | XMS_ITS | Encounter Summary ---
Author Organization [facility] Address [address] [place] [address] Care Team Providers Care Shield Cleaner Name Role Phone Abhi Ruiz MD Primary Care Provider Unavailabl e Rikki Painter DO Primary Care Provider [phone] Nhi AZUL MD, Morris Wilson Unavailable Haven vailable Louei Purdy MD Primary Care Provider [phone] Kirby Kaur MD Unavailable [phone] Maricruz Burris APRN Primary Care Provide r Nicholas Cristobal MD Unavailable Doctor, No Primary Care Provider UnavailCharlie Greenberg PA-C Unavailable [phone] Sully Castillo LPN Unavailable Unavailable Julio Samayoa APRN Primary Care Provider [phone] Julio Samayoa APRN Primary Care Provider [phone] Florin Vicente MD Unavailable Tiffanie Avery MD Primary Care Provider [phone] Sindi Mcfarland MA Unavailable Unavailable Mao Powell MD Unavailable [phone] Jeff Douglas MD Unavailable [phone] Tiffanie Avery MD Primary Care Provider [phone] Encounter Details Date Type Department Care Team (Late st Contact Info) Description 10/04/2004 Historical Encounter Global Abhi Ruiz MD Social History Tobacco Use Types Packs/Day Years Used Date Smoking Tobacco: Never Assessed Sex and Gender Information Value Date Recorded Sex Assigned at Not on file Legal Sex Male 9:36 PM EST Gender Identity Not on file Sexual Orientation Not on file documented as of this encounter Plan of Treatment Upcoming Encounters Date Type Department Care Team (Late st Contact Info) Description 12/05/2024 9:30 AM EDT Office Visit [facility] [address], [address] [place] [address] Marcos Santana APRN [address] [place] [address],[address] [place], [place] [id number] documented as of this encounter Visit Diagnoses Not on filedocumented in this encounter Care Teams Shield Cleaner Relationship Specialty Start Date End Date Abhi Ruiz MD PCP - General 12/29/07 10/04/09 Rikki Painter DO [address] [place] [address] PCP - General Family Medicine 10/05/09 06/12/11 Louie Purdy MD [address] [place] [address] PCP - General Family Medicine 06/13/11 07/05/14 Maricruz Burris APRN [address] [place] [address] PCP - General Nurse Practitioner 07/06/14 11/29/14 Otilia Abreu [place] PCP - General Family Medicine 11/30/14 04/25/15 Julio Samayoa APRN [address] [place] [address] PCP - General nurse practitioner adult care 04/26/15 01/19/17 Julio Samayoa APRN [address] [place], [place] [address] PCP - General Family Practice 01/20/17 01/19/18 Tiffanie Avery MD [address] [place] [address] PCP - General Family Medicine 01/20/18 10/28/23 Tiffanie Avery MD [address] [place] [address] PCP - General Family Medicine 12/22/23 Stew Hankins III, MD Gastroenterology 10/25/10 Kirby Kaur MD [address] [place] [address] Family Medicine 12/23/11 Nicholas Cristobal MD [address] [place] [address] Gastroenterology 08/08/14 Charlie Ayala, PAMindiC [address] [place] [address] Physician Frozen Meat Cutter 02/05/15 Sully Castillo LPN 02/22/15 Florin Vicente MD [address] [place] [address] [place] [address] Pulmonary Disease 01/19/18 Sindi Mcfarland MA 09/22/18 Mao Powell MD [address] [place] [address] Orthopedic Surgery 05/22/21 Jeff Douglas MD [address] [place] [address] [place] [address] Orthopedic Surgery 07/18/21 documented as of this encounter
--- OUTSIDE RECORDS SUMMARY | 2024-11-28 11:13 | XMS_ITS | Encounter Summary ---
Author Organization [facility] Address [address] [place] [address] Care Team Providers Care Assistant Women'S Rowing Coach Name Role Phone Nhi AZUL MD, Stew Gonzales Unavailable Haven Kirby Bustamante MD Unavailable Nicholas Cristobal MD Unavailable Charlie Ayala PA-C Unavailable Sully Castillo LPN Unavailable Unavailable Florin Vicente MD Unavailable Tiffanie Avery MD Primary Care Provider [phone] Sindi Mcfarland MA Unavailable Unavailable Mao Powell MD Unavailable Jeff Douglas MD Unavailable Tiffanie Avery MD Primary Care Provider [phone] Reason for Visit * Reason Onset Date Comments Results - Lab 01/25/2020 Encounter Details Date Type Department Care Team (Late st Contact Info) Description 01/25/2020 Telephone [facility] [place] [address] [place] [address] Yaneli Sibley, RN Results - Lab Social History Tobacco Use [...] have Coronavirus / COVID-19? No / Unsure 01/24/2020 11:10 AM EDT documented as of this encounter Miscellaneous Notes * Telephone Encounter - Yaneli Sibley RN - 01/25/2020 2:48 PM EDT Weston Parson Gerard, phoned in requesting test result(s). Lab result(s) shared with patient.Recommendations and education provided related to test result(s), he voiced understanding. No additional questions or concerns at this time. Zena Leblanc 01/25/2020 ??1:46 PM Left message Tiffanie Avery MD 01/24/2020 ??6:26 PM Iron is low. Will send in iron sup. Please turn in occult blood before starting because iron can make it be positive. Unable to attach to result notes. documented in this encounter Plan of Treatment Upcoming Encounters Date Type Department Care Team (Late st Contact Info) Description 12/05/2024 9:30 AM EDT Office Visit [facility] [address] [place] [address] Marcos Santana APRN [address] [place] [address],[address] [place] [address] documented as of this encounter Visit Diagnoses Not on filedocumented in this encounter Additional Health Concerns Assessment Noted Time PHQ-9 Depression Total Score: 0 04/01/20 19 2:31 PM EST documented as of this encounter Care Teams Assistant Women'S Rowing Coach Relationship Specialty Start Date End Date Tiffanie Avery MD [address] [place] [address] PCP - General Family Medicine 01/20/18 10/28/23 Tiffanie Avery MD [address] [place] [address] [place] [address] PCP - General Family Medicine 12/22/23 Stew Hankins III, MD Gastroenterology 10/25/10 Kirby Kaur MD [address] [place] [address] Family Medicine 12/23/11 Nicholas Cristobal MD [address] [place] [address] Gastroenterology 08/08/14 Charlie Ayala, TORIC [address] [place] [address] Physician Caddy/Caddie Supervisor 02/05/15 Sully Castillo LPN 02/22/15 [place] [address] [place] [address] [address] Pulmonary Disease 01/19/18 Sindi Mcfarland MA 09/22/18 Mao Powell MD [address] [place] [address] Orthopedic Surgery 05/22/21 Jeff Douglas MD [address] [place] [address] [address] Orthopedic Surgery 07/18/21 documented as of this encounter
--- OUTSIDE RECORDS SUMMARY | 2024-11-28 11:13 | XMS_ITS | Encounter Summary ---
Author Organization [facility] Address [address] [place] [address] Care Team Providers Care Carpentry Instructor Name Role Phone Nhi AZUL MD, Stew Gonzales Unavailable Haven Kirby Bustamante MD Unavailable Nicholas Cristobal MD Unavailable Charlie Ayala PA-C Unavailable Sully Castillo LPN Unavailable Unavailable Florin Vicente MD Unavailable Tiffanie Avery MD Primary Care Provider [phone] Sindi Mcfarland MA Unavailable Unavailable Mao Powell MD Unavailable Jeff Douglas MD Unavailable Tiffanie Avery MD Primary Care Provider [phone] Encounter Details Date Type Department Care Team (Late st Contact Info) Description 07/14/2019 Refill [facility] [address], [address] [place] [address] Taya Rivera, YANNICK [address] [place] [address] [address] [place] [id number] Social History Tobacco Use Types Packs/Day Years [...] encounter Miscellaneous Notes * Telephone Encounter - Kirby Julien - 07/14/2019 11:45 AM EST Pt is in [place] and ran out of his medication. Pt wants the brilinta sent to [facility] in [place], [place] if needed Please advise. documented in this encounter Plan of Treatment Upcoming Encounters Date Type Department Care Team (Late st Contact Info) Description 12/05/2024 9:30 AM EDT Office Visit [facility] [address], [address] [place] [address] Marcos Santana APRN [address] [place], [place] [address] [place] [address] documented as of this encounter Visit Diagnoses Diagnosis Status post coronary artery stent placement Postsurgical percutaneous transluminal coronary angioplasty status documented in this encounter Additional Health Concerns Assessment Noted Time PHQ-9 Depression Total Score: 0 04/01/20 19 2:31 PM EST documented as of this encounter Care Teams Carpentry Instructor Relationship Specialty Start Date End Date Tiffanie Avery MD [address] [place] [address] PCP - General Family Medicine 01/20/18 10/28/23 Tiffanie Avery MD [address] [place] [address] PCP - General Family Medicine 12/22/23 Stew Hankins III, MD Gastroenterology 10/25/10 Kriby Kaur MD [address] [place] [address] [address] [place] [address] Family Medicine 12/23/11 Nicholas Cristobal MD [address] [place] [address] [address] [place] [address] Gastroenterology 08/08/14 Charlie Ayala PA-C [address] [place] [address] [place] [address] Physician Customer Advocacy Manager 02/05/15 Sully Castillo LPN 02/22/15 Florin Vicente MD [address] [facility] [address] [place] [id number] Pulmonary Disease 01/19/18 Sindi Mcfarland MA 09/22/18 Mao Powell MD [address] [place] [address] [place] [address] Orthopedic Surgery 05/22/21 Jeff Douglas MD [address] [place] [address] [address] Orthopedic Surgery 07/18/21 documented as of this encounter
--- OUTSIDE RECORDS SUMMARY | 2024-11-28 11:13 | XMS_ITS | Encounter Summary ---
Author Organization [facility] Address [address] [place] [address] Care Team Providers Care Button Sewing Machine Operator Name Role Phone Nhi AZUL MD, Morris Wilson Unavailable Haven Louie Pace MD Primary Care Provider [phone] Kirby Kaur MD Unavailable [phone] Maricruz Burris APRN Primary Care Provide r Nicholas Cristobal MD Unavailable Doctor, No Primary Care Provider UnavailCharlie Greenberg PA-C Unavailable [phone] Sully Castillo LPN Unavailable Unavailable Julio Samayoa APRN Primary Care Provider [phone] Julio Samayoa APRN Primary Care Provider [phone] Florin Vicente MD Unavailable Tiffanie Avery MD Primary Care Provider [phone] Sindi Mcfarland MA Unavailable Unavailable Mao Powell MD Unavailable [phone] Jeff Douglas MD Unavailable [phone] Tiffanie Avery MD Primary Care Provider [phone] Encounter Details Date Type Department Care Team (Late st Contact Info) Description 03/25/2014 Orders Only [facility] [address] [place] [address] Louie Purdy MD [address] [place] [address] 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); DM (diabetes mellitus); Lumbar radiculopathy; Chronic pain; MDD (major depressive disorder); Insomnia; CAD (coronary artery disease); LC (generalized anxiety disorder); Stressful life event affecting family Social History Tobacco Use Types Packs/Day Years Used Date Smoking Tobacco: Former Cigarettes 1 20 1 - 03/15/1989 Alcohol Use Standard Drinks/Week Comments No 0 (1 standard drink = 0.6 oz pur e alcohol) Sex and Gender Information Value Date Recorded Sex Assigned at Not on file Legal Sex Male 9:36 PM EST Gender Identity Not on file Sexual Orientation Not on file documented as of this encounter Plan of Treatment Upcoming Encounters Date Type Department Care Team ([facility] st Contact Info) Description 12/05/2024 9:30 AM EDT Office Visit [facility] [address] [place] [address] Marcos Santana APRN [address] [place] [address] [address] [place] [address] documented as of this encounter Visit Diagnoses Diagnosis 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 Spinal stenosis, lumbar region, without neurogenic claudication DM (diabetes mellitus) ([facility]) Type II or unspecified type diabetes mellitus without mention of complication, not stated as uncontrolled Lumbar radiculopathy Thoracic or lumbosacral neuritis or radiculitis, unspecified Chronic pain Other chronic pain MDD (major depressive disorder) Major depressive disorder, single episode, unspecified Insomnia Insomnia, unspecified CAD (coronary artery disease) Coronary atherosclerosis of unspecified type of vessel, [place] or graft LC (generalized anxiety disorder) Generalized anxiety disorder Stressful life event affecting family Other family disruption documented in this encounter Care Teams Button Sewing Machine Operator Relationship Specialty Start Date End Date Louie Purdy MD [address] [place] [address] PCP - General Family Medicine 06/13/11 07/05/14 Maricruz Burris, LIVING ADVISOR [address] [place] [address] PCP - General Nurse Practitioner 07/06/14 11/29/14 Otilia Abreu [place] PCP - General Family Medicine 11/30/14 04/25/15 Julio Samayoa APRN [address] [place] [address] PCP - General nurse practitioner adult care 04/26/15 01/19/17 Julio Samayoa APRN [address] [place] [address] PCP - General Family Practice 01/20/17 01/19/18 Tiffanie Avery MD [address] [place] [address] PCP - General Family Medicine 01/20/18 10/28/23 Tiffanie Avery MD [address] [place] [address] PCP - General Family Medicine 12/22/23 Stew Hankins III, MD Gastroenterology 10/25/10 Kirby Kaur MD [address] [place] [address] [address] [place] [address] Family Medicine 12/23/11 Nicholas Cristobal MD [address] [place] [address] Gastroenterology 08/08/14 Charlie Ayala PA-C [address] [place] [address] Physician Woodworking Belt Sander 02/05/15 Sully Castillo LPN 02/22/15 Florin Vicente MD [address] [facility] [place] [address] Pulmonary Disease 01/19/18 Sindi Mcfarland MA 09/22/18 Mao Powell MD [address] [place] [address] [place] [address] Orthopedic Surgery 05/22/21 Jeff Douglas MD [address] [place] [address] [place] [address] Orthopedic Surgery 07/18/21 documented as of this encounter
--- OUTSIDE RECORDS SUMMARY | 2024-11-28 11:13 | XMS_ITS | Encounter Summary ---
Author Organization [facility] Address [address] [place] [address] Care Team Providers Care Specialist Managers Name Role Phone Abhi Ruiz MD Primary Care Provider Unavailabl e Rikki Painter DO Primary Care Provider [phone] Nhi AZUL MD, Morris Wilson Unavailable Haven vailable Louie Purdy MD Primary Care Provider [phone] Kirby Kaur MD Unavailable [phone] Maricruz Burris APRN Primary Care Provide r Nicholas Cristobal MD Unavailable Doctor, No Primary Care Provider UnavailCharlie Gerenberg PA-C Unavailable [phone] Sully Castillo LPN Unavailable Unavailable Julio Samayoa APRN Primary Care Provider [phone] Julio Samayoa APRN Primary Care Provider [phone] Florin Vicente MD Unavailable Tiffanie Avery MD Primary Care Provider [phone] Sindi Mcfarland MA Unavailable Unavailable Mao Powell MD Unavailable [phone] Jeff Douglas MD Unavailable [phone] Tiffanie Avery MD Primary Care Provider Encounter Details Date Type Department Care Team (Late st Contact Info) Description 01/11/2005 Historical Encounter Global Abhi Ruiz MD Social [...] 9:30 AM EDT Office Visit [facility] [address], [address] [place] [address] Marcos Santana APRN [address] [place] [address],[address] [place], [place] [address] documented as of this encounter Visit Diagnoses Not on filedocumented in this encounter Care Teams Specialist Managers Relationship Specialty Start Date End Date Abhi Ruiz MD PCP - General 12/29/07 10/04/09 Rikki Painter DO [address] [place] [address] PCP - General Family Medicine 10/05/09 06/12/11 Louie Purdy MD [address] [place] [address] PCP - General Family Medicine 06/13/11 07/05/14 Maricruz Burris APRN [address] [place] [address] PCP - General Nurse Practitioner 07/06/14 11/29/14 Otilia Abreu [place] PCP - General Family Medicine 11/30/14 04/25/15 Julio Samayoa APRN [address] [place] [address] PCP - General nurse practitioner adult care 04/26/15 01/19/17 Julio Samayoa APRN [address] [place], [place] [address] PCP - General Family Practice 01/20/17 01/19/18 Tiffanie Avery MD [address] [place] [address] PCP - General Family Medicine 01/20/18 10/28/23 Tiffanie Avery MD [address] [place] [address] PCP - General Family Medicine 12/22/23 Stew Hankins III, MD Gastroenterology 10/25/10 Kirby Kaur MD [address] [place] [address] Family Medicine 12/23/11 Nicholas Cristobal MD [address] [place] [address] Gastroenterology 08/08/14 Charlie Ayala, PAMindiC [address] [place] [address] Physician Public Relations Specialist 02/05/15 Sully Castillo LPN 02/22/15 Florin Vicente MD [address] [place] [address] [place] [address] Pulmonary Disease 01/19/18 Sindi Mcfarland MA 09/22/18 Mao Powell MD [address] [place] [address] Orthopedic Surgery 05/22/21 Jeff Douglas MD [address] [place] [address] [place] [address] Orthopedic Surgery 07/18/21 documented as of this encounter
--- OUTSIDE RECORDS SUMMARY | 2024-11-28 11:13 | XMS_ITS | Encounter Summary ---
Author Organization [facility] Address [address] [place] [address] Care Team Providers Care Licensed Acupuncturist Name Role Phone Abhi Ruiz MD Primary Care Provider Unavailabl e Rikki Painter DO Primary Care Provider [phone] Nhi AZUL MD, Morris Wilson Unavailable Haven vailable Louie Purdy MD Primary Care Provider [phone] Kirby Kaur MD Unavailable [phone] Maricruz Burris APRN Primary Care Provide r Nicholas Cristobal MD Unavailable Doctor, No Primary Care Provider UnavailCharlie Greenberg PA-C Unavailable [phone] Sully Castillo LPN Unavailable Unavailable Julio Samayoa APRN Primary Care Provider [phone] Julio Samayoa APRN Primary Care Provider [phone] Florin Vicente MD Unavailable Tiffanie Avery MD Primary Care Provider [phone] Sindi Mcfarland MA Unavailable Unavailable Mao Powell MD Unavailable [phone] Jeff Douglas MD Unavailable [phone] Tiffanie Avery MD Primary Care Provider [phone] Encounter Details Date Type Department Care Team (Late st Contact Info) Description 03/14/2005 Historical Encounter Global Abhi Ruiz MD Social [...] 9:30 AM EDT Office Visit [facility] [address], [address] [place] [address] Marcos Santana APRN [address] [place] [address],[address] [place], [place] [address] documented as of this encounter Visit Diagnoses Not on filedocumented in this encounter Care Teams Licensed Acupuncturist Relationship Specialty Start Date End Date Abhi Ruiz MD PCP - General 12/29/07 10/04/09 Rikki Painter DO [address] [place] [address] PCP - General Family Medicine 10/05/09 06/12/11 Louie Purdy MD [address] [place] [address] PCP - General Family Medicine 06/13/11 07/05/14 Maricruz Burris APRN [address] [place] [address] PCP - General Nurse Practitioner 07/06/14 11/29/14 Otilia Abreu [place] PCP - General Family Medicine 11/30/14 04/25/15 Julio Samayoa APRN [address] [place] [address] PCP - General nurse practitioner adult care 04/26/15 01/19/17 Julio Samayoa APRN [address] [place], [place] [address] PCP - General Family Practice 01/20/17 01/19/18 Tiffanie Avery MD [address] [place] [address] PCP - General Family Medicine 01/20/18 10/28/23 Tiffanie Avery MD [address] [place] [address] PCP - General Family Medicine 12/22/23 Stew Hankins III, MD Gastroenterology 10/25/10 Kirby Kaur MD [address] [place] [address] Family Medicine 12/23/11 Nicholas Cristobal MD [address] [place] [address] Gastroenterology 08/08/14 Charlie Ayala, PAMindiC [address] [place] [address] Physician Supply Analyst 02/05/15 Sully Castillo LPN 02/22/15 Florin Vicente MD [address] [place] [address] [place] [address] Pulmonary Disease 01/19/18 Sindi Mcfarland MA 09/22/18 Mao Powell MD [address] [place] [address] Orthopedic Surgery 05/22/21 Jeff Douglas MD [address] [place] [address] [place] [address] Orthopedic Surgery 07/18/21 documented as of this encounter
--- OUTSIDE RECORDS SUMMARY | 2024-11-28 11:13 | XMS_ITS | Encounter Summary ---
Author Organization [facility] Address [address] [place] [address] Care Team Providers Care Senior Analytical Chemist Name Role Phone Nhi AZUL MD, Stew Gonzales Unavailable Haven Kirby Bustamante MD Unavailable Nicholas Cristobal MD Unavailable Charlie Ayala PA-C Unavailable [phone] Sully Castillo LPN Unavailable Unavailable Florin Vicente MD Unavailable Tiffanie Avery MD Primary Care Provider [phone] Sindi Mcfarland MA Unavailable Unavailable Mao Powell MD Unavailable Jeff Douglas MD Unavailable Tiffanie Avery MD Primary Care Provider [phone] Reason for Visit * Reason Onset Date Comments Medications Refill 05/07/2020 Encounter Details Date Type Department Care Team (Late st Contact Info) Description 05/07/2020 Refill [facility] [address] [place] [address] [place] [id number] Tiffanie Avery MD [address] [place] [address] Social History Tobacco Use Types Packs/Day Years [...] Upcoming Encounters Date Type Department Care Team ([facility] Contact Info) Description 12/05/2024 9:30 AM EDT Office Visit [facility] [facility] [address] [place] [address] [address] [place] [id number] Marcos Santana APRN [address] [place], [place] [address] [place], [place] [id number] documented as of this encounter Visit Diagnoses Not on filedocumented in this encounter Additional Health Concerns Assessment Noted Time PHQ-9 Depression Total Score: 0 04/01/20 19 2:31 PM EST documented as of this encounter Care Teams Senior Analytical Chemist Relationship Specialty Start Date End Date Tiffanie Avery MD [address] [place] [address] PCP - General Family Medicine 01/20/18 10/28/23 Tiffanie Avery MD [address] [place] [address] PCP - General Family Medicine 12/22/23 Stew Hankins III, MD Gastroenterology 10/25/10 Kirby Kaur MD [address] [place] [address] [address] [place] [address] Family Medicine 12/23/11 Nicholas Cristobal MD [address] [place] [address] 430 [place] [address] Gastroenterology 08/08/14 Charlie Ayala, TORIC [address] [place] [address] [address] [place] [address] Physician Tank Car Mechanic 02/05/15 Sully Castillo LPN 02/22/15 [place] [address] [place] [address] [address] [place] [id number] Pulmonary Disease 01/19/18 Sindi Mcfarland MA 09/22/18 Mao Powell MD [address] [place] [address] [place] [address] Orthopedic Surgery 05/22/21 Jeff Douglas MD [address] [place] [address] [address] Orthopedic Surgery 07/18/21 documented as of this encounter
--- OUTSIDE RECORDS SUMMARY | 2024-11-28 11:13 | XMS_ITS | Encounter Summary ---
Author Organization [facility] Address [address] [place] [address] Care Team Providers Care Supervisor Dried Yeast Name Role Phone Abhi Ruiz MD Primary Care Provider Unavailabl e Rikki Painter DO Primary Care Provider [phone] Nhi AZUL MD, Morris Wilson Unavailable Haven vailable Louie Purdy MD Primary Care Provider [phone] Kirby Kaur MD Unavailable [phone] Maricruz Burris APRN Primary Care Provide r Nicholas Cristobal MD Unavailable Doctor, No Primary Care Provider UnavailCharlie Greenberg PA-C Unavailable [phone] Sully Castillo LPN Unavailable Unavailable Julio Samayoa APRN Primary Care Provider [phone] Julio Samayoa APRN Primary Care Provider [phone] Florin Vicente MD Unavailable Tiffanie Avery MD Primary Care Provider [phone] Sindi Mcfarland MA Unavailable Unavailable Mao Powell MD Unavailable [phone] Jeff Douglas MD Unavailable [phone] Tiffanie Avery MD Primary Care Provider [phone] Encounter Details Date Type Department Care Team (Late st Contact Info) Description 08/11/2003 Historical Encounter Global Blu Ruiz Social History Tobacco Use Types Packs/Day Years Used Date Smoking Tobacco: Never Assessed Sex and Gender Information Value Date Recorded Sex Assigned at Not on file Legal Sex Male 9:36 PM EST Gender Identity Not on file Sexual Orientation Not on file documented as of this encounter Plan of Treatment Upcoming Encounters Date Type Department Care Team ([facility] st Contact Info) Description 12/05/2024 9:30 AM EDT Office Visit [facility] [address], [address] [place] [address] Marcos Santana APRN [address] [place] [address],[address] [place], [place] [id number] documented as of this encounter Visit Diagnoses Not on filedocumented in this encounter Care Teams Supervisor Dried Yeast Relationship Specialty Start Date End Date Abhi Ruiz MD PCP - General 12/29/07 10/04/09 Rikki Painter DO [address] [place] [address] PCP - General Family Medicine 10/05/09 06/12/11 Louie Purdy MD [address] [place] [address] PCP - General Family Medicine 06/13/11 07/05/[address] [place] [address] PCP - General Nurse Practitioner 07/06/14 11/29/14 Otilia Abreu [place] PCP - General Family Medicine 11/30/14 04/25/15 Julio Samayoa APRN [address] [place] [address] PCP - General nurse practitioner adult care 04/26/15 01/19/17 Julio Samayoa, YANNICK [address] [place] [address] PCP - General Family Practice 01/20/17 01/19/18 Tiffanie Avery MD [address] [place] [address] PCP - General Family Medicine 01/20/18 10/28/23 Tiffanie Avery MD [address] [place] [address] PCP - General Family Medicine 12/22/23 Stew Hankins III, MD Gastroenterology 10/25/10 Kirby Kaur MD [address] [place] [address] Family Medicine 12/23/11 Nicholas Cristobal MD [address] [place] [address] Gastroenterology 08/08/14 Charlie Ayala, PA-C [address] [place] [address] Physician Irrigation Equipment Installer 02/05/15 Sully Castillo LPN 02/22/15 Florin Vicente MD [address] [place] [address] [place] [address] Pulmonary Disease 01/19/18 Sindi Mcfarland MA 09/22/18 Mao Powell MD [address] [place] [address] Orthopedic Surgery 05/22/21 Jeff Douglas MD [address] [place], [place] [address] Orthopedic Surgery 07/18/21 documented as of this encounter
--- OUTSIDE RECORDS SUMMARY | 2024-11-28 11:13 | XMS_ITS | Encounter Summary ---
Author Organization [facility] Address [address] [place] [address] Care Team Providers Care Rubber Molder Name Role Phone Nhi AZUL MD, Morris Wilson Unavailable Haven Louie Pace MD Primary Care Provider [phone] Kirby Kaur MD Unavailable [phone] Maricruz Burris APRN Primary Care Provide r Nicholas Cristobal MD Unavailable Doctor, No Primary Care Provider UnavailCharlie Greenberg PA-C Unavailable [phone] Sully Castillo LPN Unavailable Unavailable Julio Samayoa APRN Primary Care Provider [phone] Julio Samayoa APRN Primary Care Provider [phone] Florin Vicente MD Unavailable Tiffanie Avery MD Primary Care Provider [phone] Sindi Mcfarland MA Unavailable Unavailable Mao Powell MD Unavailable [phone] Jeff Douglas MD Unavailable [phone] Tiffanie Avery MD Primary Care Provider [phone] Reason for Visit * Reason Onset Date Comments Medications Refill 10/20/2013 Encounter Details Date Type Department Care Team (Late st Contact Info) Description 10/20/2013 Telephone [facility] [address] [place] [address] Louie Purdy MD [address] [place] [address] Medications Refill Social History Tobacco Use Types [...] Miscellaneous Notes * Telephone Encounter - Taya Dean - 10/20/2013 10:11 AM EDT FAX # * Telephone Encounter - Gabbie Bedoya - 10/20/2013 9:33 AM EDT Needs test strips for ONE-TOUCH ULTRA II meter. [employer] MAIL ORDER Phone # FAX# documented in this encounter Plan of Treatment Upcoming Encounters Date Type Department Care Team (Late st Contact Info) Description 12/05/2024 9:30 AM EDT Office Visit [facility] [address] [place] [address] Marcos Santana APRN [address] [place] [address],[address] [place], [place] [id number] documented as of this encounter Visit Diagnoses Not on filedocumented in this encounter Care Teams Rubber Molder Relationship Specialty Start Date End Date Louie Purdy MD [address] [place] [address] PCP - General Family Medicine 06/13/11 07/05/14 Maricruz Burris, ADVERTISING PHOTOGRAPHER [address] [place] [address] PCP - General Nurse Practitioner 07/06/14 11/29/14 [facility] PCP - General Family Medicine 11/30/14 04/25/15 Julio Samayoa APRN [address] [place] [address] PCP - General nurse practitioner adult care 04/26/15 01/19/17 Julio Samayoa APRN [address] [place] [address] PCP - General Family Practice 01/20/17 01/19/18 Tiffanie Avery MD [address] [place] [id number] PCP - General Family Medicine 01/20/18 10/28/23 Tiffanie Avery MD [address] [place] [address] PCP - General Family Medicine 12/22/23 Stew Hankins III, MD Gastroenterology 10/25/10 Kirby Kaur MD [address] [place] [address] [address] [place] [address] Family Medicine 12/23/11 Nicholas Cristobal MD [address] [place] [address] Gastroenterology 08/08/14 Charlie Ayala PA-C [address] [place] [address] [address] Crier 02/05/15 Sully Castillo LPN 02/22/15 Florin Vicente MD [address] [facility] [place] [address] Pulmonary Disease 01/19/18 Sindi Mcfarland MA 09/22/18 Mao Powell MD [address] [place] [address] [place] [address] Orthopedic Surgery 05/22/21 Jeff Douglas MD [address] [place] [address] [place] [address] Orthopedic Surgery 07/18/21 documented as of this encounter
--- OUTSIDE RECORDS SUMMARY | 2024-11-28 11:13 | XMS_ITS | Encounter Summary ---
Author Organization [facility] Address [address] [place] [address] Care Team Providers Care Plasma Processor Name Role Phone Abhi Ruiz MD Primary Care Provider Unavailabl e Rikki Painter DO Primary Care Provider [phone] Nhi AZUL MD, Morris Wilson Unavailable Haven vailable Louie Purdy MD Primary Care Provider [phone] Kirby Kaur MD Unavailable [phone] Maricruz Burris APRN Primary Care Provide r Nicholas Cristobal MD Unavailable Doctor, No Primary Care Provider UnavailCharlie Greenberg PA-C Unavailable [phone] Sully Castillo LPN Unavailable Unavailable Julio Samayoa APRN Primary Care Provider [phone] Julio Samayoa APRN Primary Care Provider [phone] Florin Vicente MD Unavailable Tiffanie Avery MD Primary Care Provider [phone] Sindi Mcfarland MA Unavailable Unavailable Mao Powell MD Unavailable [phone] Jeff Douglas MD Unavailable [phone] Tiffanie Avery MD Primary Care Provider Encounter Details Date Type Department Care Team (Late st Contact Info) Description 11/15/2004 Historical Encounter Global Abhi Ruiz MD Social [...] AM EDT Office Visit [facility] [address], [address] [place] [address] Marcos Santana APRN [address] [place] [address],[address] [place], [place] [phone] documented as of this encounter Visit Diagnoses Not on filedocumented in this encounter Care Teams Plasma Processor Relationship Specialty Start Date End Date Abhi Ruiz MD PCP - General 12/29/07 10/04/09 Rikki Painter DO [address] [place] [address] PCP - General Family Medicine 10/05/09 06/12/11 Louie Purdy MD [address] [place] [address] PCP - General Family Medicine 06/13/11 07/05/14 Maricruz Burris APRN [address] [place] [address] PCP - General Nurse Practitioner 07/06/14 11/29/14 Otilia Abreu [place], [place] PCP - General Family Medicine 11/30/14 04/25/15 Julio Samayoa APRN [address] [place] [address] PCP - General nurse practitioner adult care 04/26/15 01/19/17 Julio Samayoa APRN [address] [place], [place] [address] PCP - General Family Practice 01/20/17 01/19/18 Tiffanie Avery MD [address] [place] [address] PCP - General Family Medicine 01/20/18 10/28/23 Tiffanie Avery MD [address] [place] [address] PCP - General Family Medicine 12/22/23 Stew Hankins III, MD Gastroenterology 10/25/10 Kirby Kaur MD [address] [place] [address] Family Medicine 12/23/11 Nicholas Cristobal MD [address] [place] [address] Gastroenterology 08/08/14 Charlie Ayala, PAMindiC [address] [place] [address] Physician Video Network Engineer 02/05/15 Sully Castillo LPN 02/22/15 Florin Vicente MD [address] [place] [address] [place] [address] Pulmonary Disease 01/19/18 Sindi Mcfarland MA 09/22/18 Mao Powell MD [address] [place] [address] Orthopedic Surgery 05/22/21 Jeff Douglas MD [address] [place] [address] [place] [address] Orthopedic Surgery 07/18/21 documented as of this encounter
--- OUTSIDE RECORDS SUMMARY | 2024-11-28 11:13 | XMS_ITS | Encounter Summary ---
Author Organization [facility] Address [address] [place] [address] Care Team Providers Care Lead Tank Mechanic Name Role Phone Nhi AZUL MD, Stew Gonzales Unavailable Haven Kirby Bustamante MD Unavailable [phone] Nicholas Cristobal MD Unavailable Charlie Ayala PA-C Unavailable [phone] Sully Castillo LPN Unavailable Unavailable Florin Vicente MD Unavailable Tiffanie Avery MD Primary Care Provider [phone] Sindi Mcfarland MA Unavailable Unavailable Mao Powell MD Unavailable [phone] Jeff Douglas MD Unavailable [phone] Tiffanie Avery MD Primary Care Provider [phone] Encounter Details Date Type Department Care Team (Late st Contact Info) Description 05/22/2021 Telephone [facility] Orthopedics [address] [place] [address], [address] [address] Mao Powell MD [address] [place] [address] [place] [address] Social History Tobacco Use Types Packs/Day Years [...] encounter Miscellaneous Notes * Telephone Encounter - Jade Osorio - 05/22/2021 4:04 PM EST notified * Telephone Encounter - Mao Powell MD - 05/22/2021 1:54 PM EST We will have to see him to exam him and get xrays before the insurance will approve a MRI * Telephone Encounter - Jade Osorio - 05/22/2021 11:49 AM EST Patient called asking for you to order an MRI for his right shoulder. States he pulled something and it feels like it did before the last time you did surgery on it. Appt for eval on 06/13/21 documented in this encounter Plan of Treatment Upcoming Encounters Date Type Department Care Team (Late st Contact Info) Description 12/05/2024 9:30 AM EDT Office Visit [facility] C[facility] [address] [place] [address] Marcos Santana, YANNICK [address] [place] [address],[address] [place] [address] documented as of this encounter Visit Diagnoses Not on filedocumented in this encounter Additional Health Concerns Assessment Noted Time PHQ-9 Depression Total Score: 0 04/01/20 19 2:31 PM EST documented as of this encounter Care Teams Lead Tank Mechanic Relationship Specialty Start Date End Date Tiffanie Avery MD [address] [place] [address] PCP - General Family Medicine 01/20/18 10/28/23 Tiffanie Avery MD [address] [facility] [place] [address] PCP - General Family Medicine 12/22/23 Stew Hankins III, MD Gastroenterology 10/25/10 Kirby Kaur MD [address] [place] [address] [place] [address] Family Medicine 12/23/11 Nicholas Cristobal MD [address] [place] [address] [address] [place] [address] Gastroenterology 08/08/14 Charlie Ayala, ALKA [address] [place] [address] [address] [place] [address] Physician Drafting Layout Man 02/05/15 Sully Castillo LPN 02/22/15 Florin Vicente MD [address] [facility] [address] [address] Pulmonary Disease 01/19/18 Sindi Mcfarland MA 09/22/18 Mao Powell MD [address] [place] [address] [place] [address] Orthopedic Surgery 05/22/21 Jeff Douglas MD [address] [place] [address] [address] Orthopedic Surgery 07/18/21 documented as of this encounter
--- OUTSIDE RECORDS SUMMARY | 2024-11-28 11:13 | XMS_ITS | Encounter Summary ---
Author Organization [facility] Address [address] [place] [address] Care Team Providers Care Gasket Winder Name Role Phone Nhi AZUL MD, Stew Gonzales Unavailable Haven Kirby Bustamante MD Unavailable Nicholas Cristobal MD Unavailable Charlie Ayala PA-C Unavailable Sully Castillo LPN Unavailable Unavailable Florin Vicente MD Unavailable Tiffanie Avery MD Primary Care Provider [phone] Sindi Mcfarland MA Unavailable Unavailable Mao Powell MD Unavailable Jeff Douglas MD Unavailable [phone] Tiffanie Avery MD Primary Care Provider [phone] Encounter Details Date Type Department Care Team (Late st Contact Info) Description 06/04/2018 Telephone [facility] [address], [address] [place] [address] Joann Ayoub MD [address] [place] [address] [address] [place] [id number] Social History Tobacco Use Types Packs/Day Years [...] encounter Miscellaneous Notes * Telephone Encounter - Rubi Weinstein - 06/04/2018 11:07 AM EST Pt called with chest pain. Advised pt to go to er. Appt made for next week. documented in this encounter Plan of Treatment Upcoming Encounters Date Type Department Care Team (Late st Contact Info) Description 12/05/2024 9:30 AM EDT Office Visit [facility] [address], [address] [place] [address] Marcos Santana APRN [address] [place], [place] [address] [place], [place] [phone] documented as of this encounter Visit Diagnoses Not on filedocumented in this encounter Additional Health Concerns Assessment Noted Time PHQ-9 Depression Total Score: 0 12/25/19 18 10:45 AM EDT documented as of this encounter Care Teams Gasket Winder Relationship Specialty Start Date End Date Tiffanie Avery MD [address] [place] [address] PCP - General Family Medicine 01/20/18 10/28/23 Tiffanie Avery MD [address] [place] [address] PCP - General Family Medicine 12/22/23 Stew Hankins III, MD Gastroenterology 10/25/10 Kirby Kaur MD [address] [place] [address] [address] [place] [id number] Family Medicine 12/23/11 Nicholas Cristobal MD [address] [place] [address] [address] [place] [address] Gastroenterology 08/08/14 Charlie Ayala PA-C [address] [place] [address] [address] [place] [address] Physician Alterations Manager 02/05/15 Sully Castillo LPN 02/22/15 Florin Vicenet MD [address] [place] [address] [place] [address] Pulmonary Disease 01/19/18 Sindi Mcfarland MA 09/22/18 Mao Powell MD [address] [place] [address] [place] [address] Orthopedic Surgery 05/22/21 Jeff Douglas MD [address] [place] [address] [place] [address] Orthopedic Surgery 07/18/21 documented as of this encounter
--- OUTSIDE RECORDS SUMMARY | 2024-11-28 11:13 | XMS_ITS | Encounter Summary ---
Author Organization [facility] Address [address] [place] [address] Care Team Providers Care Cash Posting Specialist Name Role Phone Nhi AZUL MD, Stew Gonzales Unavailable Haven Kirby Bustamante MD Unavailable [phone] Nicholas Cristobal MD Unavailable Charlie Ayala PA-C Unavailable [phone] Sully Castillo LPN Unavailable Unavailable Florin Vicente MD Unavailable Tiffanie Aevry MD Primary Care Provider [phone] Sindi Mcfarland MA Unavailable Unavailable Mao Powell MD Unavailable [phone] Jeff Douglas MD Unavailable [phone] Tiffanie Avery MD Primary Care Provider [phone] Reason for Visit * Reason Onset Date Comments Other 08/21/2022 Encounter Details Date Type Department Care Team (Late st Contact Info) Description 08/21/2022 Telephone [facility] [address] [place] [address] [place] [address] Tiffanie Avery MD [address] [place] [address] Other Social History Tobacco Use Types Packs/Day Years [...] encounter Miscellaneous Notes * Telephone Encounter - Tiffanie Avery MD - 08/21/2022 12:50 PM EDT Take antibiotics and come in sooner if no imrpovmenet * Telephone Encounter - Deneen Galvez - 08/21/2022 10:09 AM EDT PLEASE SCHEDULE PATIENT AN APPOINTMENT - IF PATIENT IS PERSISTENT THEN FILL IN QUESTIONS BELOW AND ROUTE APPROPRIATELY SYMPTOMS diverticculitis START OF SYMPTOMS na WHAT MEDICATIONS HAS THE PATIENT TRIED RX antibiotics HAVE SYMPTOMS: not improved DID YOU OFFER AN APPOINTMENT? No, he is already scheduled. PATIENT APPOINTMENT documented in this encounter Plan of Treatment Upcoming Encounters Date Type Department Care Team (Late st Contact Info) Description 12/05/2024 9:30 AM EDT Office Visit [facility] C[facility] [address], [address] [place] [address] Marcos Santana APRN [address] [place], [place] [address] [place] [address] documented as of this encounter Visit Diagnoses Not on filedocumented in this encounter Additional Health Concerns Assessment Noted Time PHQ-9 Depression Total Score: 0 04/01/20 19 2:31 PM EST documented as of this encounter Care Teams Cash Posting Specialist Relationship Specialty Start Date End Date Tiffanie Avery MD [address] [place] [address] PCP - General Family Medicine 01/20/18 10/28/23 Tiffanie Avery MD [address] [place] [address] PCP - General Family Medicine 12/22/23 Stew Hankins III, MD Gastroenterology 10/25/10 Kirby Kaur MD [address] [place] [address] Family Medicine 12/23/11 Nicholas Cristobal MD [address] [place] [address] Gastroenterology 08/08/14 Charlie Ayala, TORIC [address] [place] [address] Physician Trash Collector Supervisor 02/05/15 Sully Castillo, PLANT ATTENDANT 02/22/15 Florin Vicente MD [address] [place] [address] [place] [address] Pulmonary Disease 01/19/18 Sindi Mcfarland MA 09/22/18 Mao Powell MD [address] [place] [address] Orthopedic Surgery 05/22/21 Jeff Douglas MD [address] [place] [address] Orthopedic Surgery 07/18/21 documented as of this encounter
--- OUTSIDE RECORDS SUMMARY | 2024-11-28 11:13 | XMS_ITS | Encounter Summary ---
Author Organization [facility] Address [address] [place] [address] Care Team Providers Care Paint Stripper Name Role Phone Nhi AZUL MD, Stew Gonzales Unavailable Haven Kirby Bustamante MD Unavailable Nicholas Cristobal MD Unavailable Charlie Ayala PA-C Unavailable [phone] Sully Castillo LPN Unavailable Unavailable Florin Vicente MD Unavailable Tiffanie Aveyr MD Primary Care Provider [phone] Sindi Mcfarland MA Unavailable Unavailable Mao Powell MD Unavailable Jeff Dogulas MD Unavailable Tiffanie Avery MD Primary Care Provider [phone] Reason for Visit * Reason Onset Date Comments Medications Refill 01/08/2023 Encounter Details Date Type Department Care Team (Late st Contact Info) Description 01/08/2023 Refill [facility] [address] [place] [address] [place] [id number] Jennifer Lala LPN 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 Type 2 diabetes mellitus without complication, unspecified whether exterminator helper insulin use (HCC) Iron deficiency Other disorders of iron metabolism Insomnia, unspecified type documented in this encounter Additional Health Concerns Assessment Noted Time PHQ-9 Depression Total Score: 0 04/01/20 19 2:31 PM EST documented as of this encounter Care Teams Paint Stripper Relationship Specialty Start Date End Date Tiffanie Avery MD [address] [place] [address] PCP - General Family Medicine 01/20/18 10/28/23 Tiffanie Avery MD [address] [place] [address] PCP - General Family Medicine 12/22/23 Stew Hankins III, MD Gastroenterology 10/25/10 Kirby Kaur MD [address] [place] [address] [address] [place] [address] Family Medicine 12/23/11 Nicholas Cristobal MD [address] [place] [address] Gastroenterology 08/08/14 Charlie Ayala, TORIC [address] [place] [address] Physician Display Trimmer 02/05/15 Sully Castillo LPN 02/22/15 [place] [address] [place] [address] [place] [address] Pulmonary Disease 01/19/18 Sindi Mcfarland MA 09/22/18 Mao Powell MD [address] [place] [address] Orthopedic Surgery 05/22/21 Jeff Douglas MD [address] [place] [address] Orthopedic Surgery 07/18/21 documented as of this encounter
--- OUTSIDE RECORDS SUMMARY | 2024-11-28 11:13 | XMS_ITS | Encounter Summary ---
Author Organization [facility] Address [address] [place] [address] Care Team Providers Care Marine Chronometer Assembler Name Role Phone Abhi Ruiz MD Primary Care Provider Unavailabl e Rikki Painter DO Primary Care Provider [phone] Nhi AZUL MD, [place] Wilson Unavailable Haven vailable Louie Purdy MD Primary Care Provider [phone] Kirby Kaur MD Unavailable [phone] Maricruz Burris APRN Primary Care Provide r Nicholas Cristobal MD Unavailable Doctor, No Primary Care Provider UnavailCharlie Greenberg PA-C Unavailable [phone] Sully Castillo LPN Unavailable Unavailable Julio Samayoa APRN Primary Care Provider [phone] Julio Samayoa APRN Primary Care Provider [phone] Florin Vicente MD Unavailable Tiffanie Avery MD Primary Care Provider [phone] Sindi Mcfarland MA Unavailable Unavailable Mao Powell MD Unavailable [phone] Jeff Douglas MD Unavailable [phone] Tiffanie Avery MD Primary Care Provider [phone] Encounter Details Date Type Department Care Team (Late st Contact Info) Description 04/11/2005 Historical Encounter Global Abhi Ruiz MD Social [...] AM EDT Office Visit [facility] [address], [address] [place] [address] Marcos Santana APRN [address] [place] [address],[address] [place], [place] [id number] documented as of this encounter Visit Diagnoses Not on filedocumented in this encounter Care Teams Marine Chronometer Assembler Relationship Specialty Start Date End Date Abhi Ruiz MD PCP - General 12/29/07 10/04/09 Rikki Painter DO [address] [place] [address] PCP - General Family Medicine 10/05/09 06/12/11 Louie Purdy MD [address] [place] [address] PCP - General Family Medicine 06/13/11 07/05/14 Maricruz Burris APRN [address] [place] [address] PCP - General Nurse Practitioner 07/06/14 11/29/14 Otilia Abreu [place] PCP - General Family Medicine 11/30/14 04/25/15 Julio Samayoa APRN [address] [place] [address] PCP - General nurse practitioner adult care 04/26/15 01/19/17 Julio Samayoa APRN [address] [place], [place] [address] PCP - General Family Practice 01/20/17 01/19/18 Tiffanie Avery MD [address] [place] [address] PCP - General Family Medicine 01/20/18 10/28/23 Tiffanie Avery MD [address] [place] [address] PCP - General Family Medicine 12/22/23 Stew Hankins III, MD Gastroenterology 10/25/10 Kirby Kaur MD [address] [place] [address] Family Medicine 12/23/11 Nicholas Cristobal MD [address] [place] [address] Gastroenterology 08/08/14 Charlie Ayala, PAMindiC [address] [place] [address] Physician Federal District Clerk 02/05/15 Sully Castillo LPN 02/22/15 Florin Vicente MD [address] [place] [address] [place] [address] Pulmonary Disease 01/19/18 Sindi Mcfarland MA 09/22/18 Mao Powell MD [address] [place] [address] Orthopedic Surgery 05/22/21 Jeff Douglas MD [address] [place] [address] [place] [address] Orthopedic Surgery 07/18/21 documented as of this encounter
--- OUTSIDE RECORDS SUMMARY | 2024-11-28 11:13 | XMS_ITS | Encounter Summary ---
Author Organization [facility] Address [address] [place] [address] Care Team Providers Care Sas Programmer Analyst Name Role Phone Nhi AZUL MD, Stew Gonzales Unavailable Haven Kirby Bustamante MD Unavailable Nicholas Cristobal MD Unavailable Charlie Ayala PA-C Unavailable [phone] Sully Castillo LPN Unavailable Unavailable Florin Vicente MD Unavailable Tiffanie Avery MD Primary Care Provider [phone] Sindi Mcfarland MA Unavailable Unavailable Mao Powell MD Unavailable [phone] Jeff Douglas MD Unavailable Tiffanie Avery MD Primary Care Provider Reason for Visit * Reason Onset Date Comments Medications Refill 01/07/2023 Encounter Details Date Type Department Care Team (Late st Contact Info) Description 01/07/2023 Refill [facility] [address] [place] [address] [place] [phone] Tiffanie Avery MD [address] [place] [address] Hypertension, unspecified type; Shortness of breath; 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 Refill due: yes ?? Primary Care Provider is: khang ?? Pharmacy verified: yes ?? Refill requested for 90 days ?? Last appointment 09/16/22. Next appointment n/a. Appointment offered to patient if last office visit > 6 months to 1 year. no ??? Patient is currently out of medication: yes ??? 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 Type 2 diabetes mellitus without complication, unspecified whether long winder tender insulin use (HCC) Iron deficiency Other disorders of iron metabolism Insomnia, unspecified type documented in this encounter Additional Health Concerns Assessment Noted Time PHQ-9 Depression Total Score: 0 04/01/20 19 2:31 PM EST documented as of this encounter Care Teams Sas Programmer Analyst Relationship Specialty Start Date End Date Tiffanie Avery MD [address] [place] [address] PCP - General Family Medicine 01/20/18 10/28/23 Tiffanie Avery MD [address] [facility] [place] [address] PCP - General Family Medicine 12/22/23 Stew Hankins III, MD Gastroenterology 10/25/10 Kirby Kaur MD [address] [place] [address] [place] [address] Family Medicine 12/23/11 Nicholas Cristobal MD [address] [place] [address] Gastroenterology 08/08/14 Charlie Ayala, PA-C [address] [place] [address] Physician American History Teacher 02/05/15 Sully Castillo LPN 02/22/15 [place] [address] [place] [address] [place] [address] Pulmonary Disease 01/19/18 Sindi Mcfarland MA 09/22/18 Mao Powell MD [address] [place] [address] [place] [address] Orthopedic Surgery 05/22/21 Jeff Douglas MD [address] [place] [address] [place] [address] Orthopedic Surgery 07/18/21 documented as of this encounter
--- OUTSIDE RECORDS SUMMARY | 2024-11-28 11:13 | XMS_ITS | Encounter Summary ---
Author Organization [facility] Address [address] [place] [address] Care Team Providers Care Brass Sorter Name Role Phone Abhi Ruiz MD Primary Care Provider Unavailabl e Rikki Painter DO Primary Care Provider [phone] Nhi AZUL MD, [place] Unavailable Haven vailable Louie Purdy MD Primary Care Provider [phone] Kirby Kaur MD Unavailable [phone] Maricruz Burris APRN Primary Care Provide r Nicholas Cristobal MD Unavailable Doctor, No Primary Care Provider UnavailCharlie Greenberg PA-C Unavailable [phone] Sully Castillo LPN Unavailable Unavailable Julio Samayoa APRN Primary Care Provider [phone] Julio Samayoa APRN Primary Care Provider [phone] Florin Vicente MD Unavailable Tiffanie Avery MD Primary Care Provider [phone] Sindi Mcfarland MA Unavailable Unavailable Mao Powell MD Unavailable [phone] Jeff Douglas MD Unavailable [phone] Tiffanie Avery MD Primary Care Provider [phone] Encounter Details Date Type Department Care Team (Late st Contact Info) Description 11/26/2005 Historical Encounter Global Abhi Ruiz MD Social [...] 9:30 AM EDT Office Visit [facility] [address], [address] [place] [address] Marcos Santana APRN [address] [place] [address],[address] [place], [place] [id number] documented as of this encounter Visit Diagnoses Not on filedocumented in this encounter Care Teams Brass Sorter Relationship Specialty Start Date End Date Abhi Ruiz MD PCP - General 12/29/07 10/04/09 Rikki Painter DO [address] [place] [address] PCP - General Family Medicine 10/05/09 06/12/11 Louie Purdy MD [address] [place] [address] PCP - General Family Medicine 06/13/11 07/05/14 Maricruz Burris APRN [address] [place] [address] PCP - General Nurse Practitioner 07/06/14 11/29/14 Otilia Abreu [place], [place] PCP - General Family Medicine 11/30/14 04/25/15 Julio Samayoa APRN [address] [place] [address] PCP - General nurse practitioner adult care 04/26/15 01/19/17 Julio Samayoa APRN [address] [place], [place] [address] PCP - General Family Practice 01/20/17 01/19/18 Tiffanie Avery MD [address] [place] [address] PCP - General Family Medicine 01/20/18 10/28/23 Tiffanie Avery MD [address] [place] [address] PCP - General Family Medicine 12/22/23 Stew Hankins III, MD Gastroenterology 10/25/10 Kirby Kaur MD [address] [place] [address] Family Medicine 12/23/11 Nicholas Cristobal MD [address] [place] [address] Gastroenterology 08/08/14 Charlie Ayala, PAMindiC [address] [place] [address] Physician Medical Insurance Biller 02/05/15 Sully Castillo LPN 02/22/15 Florin Vicente MD [address] [place] [address] [place] [address] Pulmonary Disease 01/19/18 Sindi Mcfarland MA 09/22/18 Mao Powell MD [address] [place] [address] Orthopedic Surgery 05/22/21 Jeff Douglas MD [address] [place] [address] [place] [address] Orthopedic Surgery 07/18/21 documented as of this encounter
--- OUTSIDE RECORDS SUMMARY | 2024-11-28 11:13 | XMS_ITS | Encounter Summary ---
Author Organization [facility] Address [address] [place] [address] Care Team Providers Care Gas Line Installer Supervisor Name Role Phone Abhi Ruiz MD Primary Care Provider Unavailabl e Rikki Painter DO Primary Care Provider [phone] Nhi AZUL MD, [place] Unavailable Haven vailable Louie Purdy MD Primary Care Provider [phone] Kirby Kaur MD Unavailable [phone] Maricruz Burris APRN Primary Care Provide r [place] Cristobal MD Unavailable Doctor, No Primary Care Provider UnavailCharlie Greenberg PA-C Unavailable [phone] Sully Castillo LPN Unavailable Unavailable Julio Samayoa APRN Primary Care Provider [phone] Julio Samayoa APRN Primary Care Provider [phone] Florin Vicente MD Unavailable Tiffanie Avery MD Primary Care Provider [phone] Sindi Mcfarland MA Unavailable Unavailable Mao Powell MD Unavailable [phone] Jeff Douglas MD Unavailable [phone] Tiffanie Avery MD Primary Care Provider [phone] Encounter Details Date Type Department Care Team (Late st Contact Info) Description 02/06/2005 Historical Encounter Global Abhi Ruiz MD Social [...] 9:30 AM EDT Office Visit [facility] [address], [address] [place] [address] Marcos Santana APRN [address] [place] [address],[address] [place], [place] [id number] documented as of this encounter Visit Diagnoses Not on filedocumented in this encounter Care Teams Gas Line Installer Supervisor Relationship Specialty Start Date End Date Abhi Ruiz MD PCP - General 12/29/07 10/04/09 Rikki Painter DO [address] [place] [address] PCP - General Family Medicine 10/05/09 06/12/11 Louie Purdy MD [address] [place] [address] PCP - General Family Medicine 06/13/11 07/05/14 Maricruz Burris APRN [address] [place] [address] PCP - General Nurse Practitioner 07/06/14 11/29/14 Otilia Abreu [place], [place] PCP - General Family Medicine 11/30/14 04/25/15 Julio Samayoa APRN [address] [place] [address] PCP - General nurse practitioner adult care 04/26/15 01/19/17 Julio Samayoa APRN [address] [place], [place] [address] PCP - General Family Practice 01/20/17 01/19/18 Tiffanie Avery MD [address] [place] [address] PCP - General Family Medicine 01/20/18 10/28/23 Tiffanie Avery MD [address] [place] [address] PCP - General Family Medicine 12/22/23 Stew Hankins III, MD Gastroenterology 10/25/10 Kirby Kaur MD [address] [place] [address] Family Medicine 12/23/11 Nicholas Cristobal MD [address] [place] [address] Gastroenterology 08/08/14 Charlie Ayala, PAMindiC [address] [place] [address] Physician Assembler Gold Frame 02/05/15 Sully Castillo LPN 02/22/15 Florin Vicente MD [address] [place] [address] [place] [address] Pulmonary Disease 01/19/18 Sindi Mcfarland MA 09/22/18 Mao Powell MD [address] [place] [address] Orthopedic Surgery 05/22/21 Jeff Douglas MD [address] [place] [address] [place] [address] Orthopedic Surgery 07/18/21 documented as of this encounter
--- OUTSIDE RECORDS SUMMARY | 2024-11-28 11:13 | XMS_ITS | Encounter Summary ---
Author Organization [facility] Address [address] [place] [address] Care Team Providers Care Record Changer Assembler Name Role Phone Nhi AZUL MD, [place] Unavailable Haven Louie Pace MD Primary Care Provider Kirby Kaur MD Unavailable [phone] Maricruz Burris APRN Primary Care Provide r [place] Cristobal MD Unavailable Doctor, No Primary Care Provider UnavailCharlie Greenberg PA-C Unavailable Sully Castillo LPN Unavailable Unavailable Julio Samayoa APRN Primary Care Provider [phone] Julio Samayoa APRN Primary Care Provider Florin Vicente MD Unavailable Tiffanie Avery MD Primary Care Provider [phone] Sindi Mcfarland MA Unavailable Unavailable Mao Powell MD Unavailable [phone] Jeff Douglas MD Unavailable [phone] Tiffanie Avery MD Primary Care Provider [phone] Encounter Details Date Type Department Care Team (Late st Contact Info) Description 11/07/2013 Telephone [facility] [address] [place] [address] Remedios Yousif, RN Social History Tobacco Use Types Packs/Day Years [...] 9:30 AM EDT Office Visit [facility] [address], [address] [place] [address] Marcos Santana APRN [address] [place] [address],[address] [place], [place] [id number] documented as of this encounter Visit Diagnoses Not on filedocumented in this encounter Care Teams Record Changer Assembler Relationship Specialty Start Date End Date Louie Purdy MD [address] [place] [address] PCP - General Family Medicine 06/13/11 07/05/14 Maricruz Burris APRN [address] [place] [address] PCP - General Nurse Practitioner 07/06/14 11/29/14 Doctor [place], [place] PCP - General Family Medicine 11/30/14 04/25/15 Julio Samayoa APRN [address] [place] [address] PCP - General nurse practitioner adult care 04/26/15 01/19/17 Julio Samayoa APRN [address] [place] [address] PCP - General Family Practice 01/20/17 01/19/18 Tiffanie Avery MD [address] [place] [address] PCP - General Family Medicine 01/20/18 10/28/23 Tiffanie Avery MD [address] [facility] [place] [address] PCP - General Family Medicine 12/22/23 Stew Hankins III, MD Gastroenterology 10/25/10 Kirby Kaur MD [address] [place] [address] [address] Family Medicine 12/23/11 Nicholas Cristobal MD [address] [place] [address] [address] [place] [address] Gastroenterology 08/08/14 Charlie Ayala PA-C [address] [place] [address] [address] [place] [address] Physician Care Team Assistant 02/05/15 Sully Castillo LPN 02/22/15 [place] [address] [place] [address] [address] Pulmonary Disease 01/19/18 Sindi Mcfarland MA 09/22/18 Mao Powell MD [address] [place] [address] [address] Orthopedic Surgery 05/22/21 Jeff Douglas MD [address] [place] [address] [address] Orthopedic Surgery 07/18/21 documented as of this encounter
--- OUTSIDE RECORDS SUMMARY | 2024-11-28 11:13 | XMS_ITS | Encounter Summary ---
Author Organization [facility] Address [address] [place] [address] Care Team Providers Care Mill Tender Warm Up Name Role Phone Abhi Ruiz MD Primary Care Provider Unavailabl e Rikki Painter DO Primary Care Provider [phone] Nhi AZUL MD, [place] Unavailable Haven vailable Louie uPrdy MD Primary Care Provider [phone] Kirby Kaur MD Unavailable [phone] Maricruz Burris APRN Primary Care Provide r [place] Cristobal MD Unavailable Doctor, No Primary Care Provider UnavailCharlie Greenberg PA-C Unavailable [phone] Sully Castillo LPN Unavailable Unavailable Julio Samayoa APRN Primary Care Provider [phone] Julio Samayoa APRN Primary Care Provider [phone] Florin Vicente MD Unavailable Tiffanie Avery MD Primary Care Provider [phone] Sindi Mcfarland MA Unavailable Unavailable Mao Powell MD Unavailable [phone] Jeff Douglas MD Unavailable [phone] Tiffanie Avery MD Primary Care Provider [phone] Encounter Details Date Type Department Care Team (Late st Contact Info) Description 09/15/2003 Historical Encounter Global Blu Ruiz Social History Tobacco Use Types Packs/Day Years Used Date Smoking Tobacco: Never Assessed Sex and Gender Information Value Date Recorded Sex Assigned at Not on file Legal Sex Male 9:36 PM EST Gender Identity Not on file Sexual Orientation Not on file documented as of this encounter Plan of Treatment Upcoming Encounters Date Type Department Care Team ([facility] st Contact Info) Description 12/05/2024 9:30 AM EDT Office Visit [facility] [address], [address] [place] [address] Marcos Santana APRN [address] [place] [address],[address] [place], [place] [id number] documented as of this encounter Visit Diagnoses Not on filedocumented in this encounter Care Teams Mill Tender Warm Up Relationship Specialty Start Date End Date Abhi Ruiz MD PCP - General 12/29/07 10/04/09 Rikki Painter DO [address] [place] [address] PCP - General Family Medicine 10/05/09 06/12/11 Louie Purdy MD [address] [place] [address] PCP - General Family Medicine 06/13/11 07/05/14 Maricruz Burris RELAY RECORD CLERK [address] [place] [address] PCP - General Nurse Practitioner 07/06/14 11/29/14 Otilia Abreu [place], [place] PCP - General Family Medicine 11/30/14 04/25/15 Julio Samayoa APRN [address] [place] [address] PCP - General nurse practitioner adult care 04/26/15 01/19/17 Julio Samayoa, YANNICK [address] [place] [address] PCP - General Family Practice 01/20/17 01/19/18 Tiffanie Avery MD [address] [place] [address] PCP - General Family Medicine 01/20/18 10/28/23 Tiffanie Avery MD [address] [place] [address] PCP - General Family Medicine 12/22/23 Stew Hankins III, MD Gastroenterology 10/25/10 Kirby Kaur MD [address] [place] [address] Family Medicine 12/23/11 Nicholas Cristobal MD [address] [place] [address] Gastroenterology 08/08/14 Charlie Ayala, PA-C [address] [place] [address] Physician Gum Mixer 02/05/15 Sully Castillo LPN 02/22/15 Florin Vicente MD [address] [place] [address] [place] [address] Pulmonary Disease 01/19/18 Sindi Mcfarland MA 09/22/18 Mao Powell MD [address] [place] [address] Orthopedic Surgery 05/22/21 Jeff Douglas MD [address] [place], [place] [address] Orthopedic Surgery 07/18/21 documented as of this encounter
--- OUTSIDE RECORDS SUMMARY | 2024-11-28 11:13 | XMS_ITS | Encounter Summary ---
Author Organization [facility] Address [address] [place] [address] Care Team Providers Care Editor Index Name Role Phone Abhi Ruiz MD Primary Care Provider Unavailabl e Rikki Painter DO Primary Care Provider [phone] Nhi AZUL MD, Morris Wilson Unavailable Haven vailable Louie Purdy MD Primary Care Provider [phone] Kirby Kaur MD Unavailable [phone] Maricruz Burris APRN Primary Care Provide r Nicholas Cristobal MD Unavailable Doctor, No Primary Care Provider UnavailCharlie Greenberg PA-C Unavailable [phone] Sully Castillo LPN Unavailable Unavailable Julio Samayoa APRN Primary Care Provider [phone] Julio Samayoa APRN Primary Care Provider [phone] Florin Vicente MD Unavailable Tiffanie Avery MD Primary Care Provider [phone] Sindi Mcfarland MA Unavailable Unavailable Moa Powell MD Unavailable [phone] Jeff Douglas MD Unavailable [phone] Tiffanie Avery MD Primary Care Provider Encounter Details Date Type Department Care Team (Late st Contact Info) Description 11/20/2004 Historical Encounter Global Abhi Ruiz MD Social [...] 9:30 AM EDT Office Visit [facility] [address], [address] [place] [address] Marcos Santana APRN [address] [place] [address],[address] [place], [place] [id number] documented as of this encounter Visit Diagnoses Not on filedocumented in this encounter Care Teams Editor Index Relationship Specialty Start Date End Date Abhi Ruiz MD PCP - General 12/29/07 10/04/09 Rikki Painter DO [address] [place] [address] PCP - General Family Medicine 10/05/09 06/12/11 Louie Purdy MD [address] [place] [address] PCP - General Family Medicine 06/13/11 07/05/14 Maricruz Burris APRN [address] [place] [address] PCP - General Nurse Practitioner 07/06/14 11/29/14 Otilia Abreu [place] PCP - General Family Medicine 11/30/14 04/25/15 Julio Samayoa APRN [address] [place] [address] PCP - General nurse practitioner adult care 04/26/15 01/19/17 Julio Samayoa APRN [address] [place], [place] [address] PCP - General Family Practice 01/20/17 01/19/18 Tiffanie Avery MD [address] [place] [address] PCP - General Family Medicine 01/20/18 10/28/23 Tiffanie Avery MD [address] [place] [address] PCP - General Family Medicine 12/22/23 Stew Hankins III, MD Gastroenterology 10/25/10 Kirby Kaur MD [address] [place] [address] Family Medicine 12/23/11 Nicholas Cristobal MD [address] [place] [address] Gastroenterology 08/08/14 Charlie Ayala, PAMindiC [address] [place] [address] Physician Icebox Worker 02/05/15 Sully Castillo LPN 02/22/15 Florin Vicente MD [address] [place] [address] [place] [address] Pulmonary Disease 01/19/18 Sindi Mcfarland MA 09/22/18 Mao Powell MD [address] [place] [address] Orthopedic Surgery 05/22/21 Jeff Douglas MD [address] [place] [address] [place] [address] Orthopedic Surgery 07/18/21 documented as of this encounter
--- OUTSIDE RECORDS SUMMARY | 2024-11-28 11:13 | XMS_ITS | Encounter Summary ---
Author Organization [facility] Address [address] [place] [address] Care Team Providers Care Delphi Programmer Name Role Phone Abhi Ruiz MD Primary Care Provider Unavailabl e Rikki Painter DO Primary Care Provider [phone] Nhi AZUL MD, Morris Wilson Unavailable Haven vailable Louie Purdy MD Primary Care Provider [phone] Kirby Kaur MD Unavailable [phone] Maricruz Burris APRN Primary Care Provide r Nicholas Cristobal MD Unavailable Doctor, No Primary Care Provider UnavailCharlie Greenberg PA-C Unavailable [phone] Sully Castillo LPN Unavailable Unavailable Julio Samayoa APRN Primary Care Provider [phone] Julio Samayoa APRN Primary Care Provider [phone] Florin Vicente MD Unavailable Tiffanie Avery MD Primary Care Provider [phone] Sindi Mcfarland MA Unavailable Unavailable Mao Powell MD Unavailable [phone] Jeff Douglas MD Unavailable [phone] Tiffanie Avery MD Primary Care Provider Encounter Details Date Type Department Care Team (Late st Contact Info) Description 12/06/2003 Historical Encounter Global Abhi Ruiz MD Social [...] 9:30 AM EDT Office Visit [facility] [address], [address] [place] [address] Marcos Santana APRN [address] [place] [address],[address] [place], [place] [id number] documented as of this encounter Visit Diagnoses Not on filedocumented in this encounter Care Teams Delphi Programmer Relationship Specialty Start Date End Date Abhi Ruiz MD PCP - General 12/29/07 10/04/09 Rikki Painter DO [address] [place] [address] PCP - General Family Medicine 10/05/09 06/12/11 Louie Purdy MD [address] [place] [address] PCP - General Family Medicine 06/13/11 07/05/14 Maricruz Burris APRN [address] [place] [address] PCP - General Nurse Practitioner 07/06/14 11/29/14 Otilia Abreu [place] PCP - General Family Medicine 11/30/14 04/25/15 Julio Samayoa APRN [address] [place] [address] PCP - General nurse practitioner adult care 04/26/15 01/19/17 Julio Samayoa APRN [address] [place], [place] [address] PCP - General Family Practice 01/20/17 01/19/18 Tiffanie Avery MD [address] [place] [address] PCP - General Family Medicine 01/20/18 10/28/23 Tiffanie Avery MD [address] [place] [address] PCP - General Family Medicine 12/22/23 Stew Hankins III, MD Gastroenterology 10/25/10 Kirby Kaur MD [address] [place] [address] Family Medicine 12/23/11 Nicholas Cristobal MD [address] [place] [address] Gastroenterology 08/08/14 Charlie Ayala, PAMindiC [address] [place] [address] Physician Bisque Brusher 02/05/15 Sully Castillo LPN 02/22/15 Florin Vicente MD [address] [place] [address] [place] [address] Pulmonary Disease 01/19/18 Sindi Mcfarland MA 09/22/18 Mao Powell MD [address] [place] [address] Orthopedic Surgery 05/22/21 Jeff Douglas MD [address] [place] [address] [place] [address] Orthopedic Surgery 07/18/21 documented as of this encounter
--- OUTSIDE RECORDS SUMMARY | 2024-11-28 11:13 | XMS_ITS | Encounter Summary ---
Author Organization [facility] Address [address] [place] [address] Care Team Providers Care Television Newscast Director Name Role Phone Nhi AZUL MD, Stew Gonzales Unavailable Haven Kirby Bustamante MD Unavailable [phone] Nicholas Cristobal MD Unavailable Charlie Ayala PA-C Unavailable [phone] Sully Castillo LPN Unavailable Unavailable Julio Samayoa APRN Primary Care Provider [phone] Julio Samayoa APRN Primary Care Provider Florin Vicente MD Unavailable Tiffanie Avery MD Primary Care Provider [phone] Sindi Mcfarland MA Unavailable Unavailable Mao Powell MD Unavailable Jeff Douglas MD Unavailable [phone] Tiffanie Avery MD Primary Care Provider [phone] Encounter Details Date Type Department Care Team (Late st Contact Info) Description 07/31/2016 Orders Only [facility] [address] [place] [address] Julio Samayoa APRN [address] [place] [address] Hypertension goal BP (blood pressure) < 130/80 Social History Tobacco Use Types Packs/Day Years [...] Upcoming Encounters Date Type Department Care Team ([facility] st Contact Info) Description 12/05/2024 9:30 AM EDT Office Visit [facility] [address], [address] [place] [address] Marcos Santana APRN [address] [place] [address],[address] [place] [address] documented as of this encounter Visit Diagnoses Diagnosis Hypertension goal BP (blood pressure) < 130/80 Unspecified essential hypertension documented in this encounter Care Teams Television Newscast Director Relationship Specialty Start Date End Date Julio Samayoa APRN [address] [place] [address] PCP - General nurse practitioner adult care 04/26/15 01/19/17 Julio Samayoa APRN [address] [place] [address] PCP - General Family Practice 01/20/17 01/19/18 Tiffanie Avery MD [address] [place] [address] PCP - General Family Medicine 01/20/18 10/28/23 Tiffanie Avery MD [address] [place] [address] PCP - General Family Medicine 12/22/23 Stew Hankins III, MD Gastroenterology 10/25/10 Kirby Kaur MD [address] [place] [address] [address] Family Medicine 12/23/11 Nicholas Cristobal MD [address] [place] [address] Gastroenterology 08/08/14 Charlie Ayala PA-C [address] [place] [address] Physician Carton Wrapper 02/05/15 Sully Castillo LPN 02/22/15 [place] [address] [place] [address] [address] Pulmonary Disease 01/19/18 Sindi Mcfarland MA 09/22/18 Mao Powell MD [address] [place] [address] [address] Orthopedic Surgery 05/22/21 Jeff Douglas MD [address] [place] [address] Orthopedic Surgery 07/18/21 documented as of this encounter
--- OUTSIDE RECORDS SUMMARY | 2024-11-28 11:13 | XMS_ITS | Encounter Summary ---
Author Organization [facility] Address [address] [place] [address] Care Team Providers Care Hospital Chief Financial Officer Name Role Phone Nhi AZUL MD, Stew Gonzales Unavailable Haven Kirby Bustamante MD Unavailable Nicholas Cristobal MD Unavailable Charlie Ayala PA-C Unavailable [phone] Sully Castillo LPN Unavailable Unavailable Julio Samayoa APRN Primary Care Provider [phone] Florin Vicente MD Unavailable Tiffanie Avery MD Primary Care Provider [phone] Sindi Mcfarland MA Unavailable Unavailable Mao Powell MD Unavailable [phone] Jeff Douglas MD Unavailable [phone] Tiffanie Avery MD Primary Care Provider [phone] Reason for Visit * Reason Onset Date Comments Results - Test 03/13/2017 ct Encounter Details Date Type Department Care Team ([facility] st Contact Info) Description 03/13/2017 Telephone [facility] [address] [place] [address], [address] [place] [address] Clem Westbrook MD [address] [place] [address] [address] [place] [address] Results - Test (ct ) Social History Tobacco Use Types Packs/Day [...] encounter Miscellaneous Notes * Telephone Encounter - JsRubi - 03/13/2017 9:[address] results are not back. Pt would like results. documented in this encounter Plan of Treatment Upcoming Encounters Date Type Department Care Team ([facility] st Contact Info) Description 12/05/2024 9:30 AM EDT Office Visit [facility] [address] [place] [address] Marcos Santana APRN [address] [place], [place] [address] [place] [address] documented as of this encounter Visit Diagnoses Not on filedocumented in this encounter Care Teams Hospital Chief Financial Officer Relationship Specialty Start Date End Date Julio Samayoa APRN [address] [place] [address] PCP - General Family Practice 01/20/17 01/19/18 Tiffanie Avery MD [address] [place] [address] PCP - General Family Medicine 01/20/18 10/28/23 Tiffanie Avery MD [address] [place] [address] PCP - General Family Medicine 12/22/23 Stew Hankins III, MD Gastroenterology 10/25/10 Kirby Kaur MD [address] [place], [place] [address] Family Medicine 12/23/11 Nicholas Cristobal MD [address] [place] [address] Gastroenterology 08/08/14 Charlie Ayala, PA-C [address] [place] [address] Physician Computer Programming Manager 02/05/15 Sully Castillo LPN 02/22/15 Florin Vicente MD [address] [place] [address] [place] [address] Pulmonary Disease 01/19/18 Sindi Mcfarland MA 09/22/18 Mao Powell MD [address] [place] [address] Orthopedic Surgery 05/22/21 Jeff Douglas MD [address] [place] [address] Orthopedic Surgery 07/18/21 documented as of this encounter
--- OUTSIDE RECORDS SUMMARY | 2024-11-28 11:13 | XMS_ITS | Encounter Summary ---
Author Organization [facility] Address [address] [place] [address] Care Team Providers Care Hydraulic Tester Name Role Phone Nhi AZUL MD, Morris Wilson Unavailable Haven Kirby Bustamante MD Unavailable [phone] Nicholas Cristobal MD Unavailable Charlie Ayala PA-C Unavailable Sully Castillo LPN Unavailable Unavailable Julio Samayoa APRN Primary Care Provider [phone] Julio Samayoa APRN Primary Care Provider [phone] Florin Vicente MD Unavailable Tiffanie Avery MD Primary Care Provider Sindi Mcfarland MA Unavailable Unavailable Mao Powell MD Unavailable [phone] Jeff Douglas MD Unavailable [phone] Tiffanie Avery MD Primary Care Provider [phone] Reason for Visit * Reason Onset Date Comments Other 07/19/2015 Blood Sugar Diag nostic (ONETOUCH ULTRA TEST) Strp Encounter Details Date Type Department Care Team (Late st Contact Info) Description 07/19/2015 Telephone [facility] [address] [place] [address] Julio Samayoa APRN [address] [place] [address] Other (Blood Sugar Diagnostic (ONETOUCH ULTRA TEST) Strp) Social History Tobacco Use Types Packs/Day Years [...] Miscellaneous Notes * Telephone Encounter - Debbie Olsen LPN - 07/21/2015 11:47 AM EST Prescription for strips sent to [facility]. * Telephone Encounter - Yoko Payne - 07/19/2015 9:17 AM EST Blood Sugar Diagnostic (ONETOUCH ULTRA TEST) Strp (none) TWICE A DAY [facility] asked patient to call and have strips sent to [facility]. It will take too long for the patient to receive them. Patient has been out for 3 weeks. documented in this encounter Plan of Treatment Upcoming Encounters Date Type Department Care Team (Late st Contact Info) Description 12/05/2024 9:30 AM EDT Office Visit [facility] [address], [address] [place] [address] Marcos Santana APRN [address] [place], [place] [address] [address] [place] [address] documented as of this encounter Visit Diagnoses Not on filedocumented in this encounter Care Teams Hydraulic Tester Relationship Specialty Start Date End Date Julio Samayoa APRN [address] [place] [address] PCP - General nurse practitioner adult care 04/26/15 01/19/17 Julio Samayoa APRN [address] [place] [address] PCP - General Family Practice 01/20/17 01/19/18 Tiffanie Avery MD [address] [place] [address] PCP - General Family Medicine 01/20/18 10/28/23 Tiffanie Avery MD [address] [place] [address] PCP - General Family Medicine 12/22/23 Stew Hankins III, MD Gastroenterology 10/25/10 Kirby Kaur MD [address] [place] [address] [address] [place] [address] Family Medicine 12/23/11 Nicholas Cristobal MD [address] [place] [address] [address] [place] [address] Gastroenterology 08/08/14 Charlie Ayala, TORIC [address] [place] [address] [address] [place] [address] Physician Kitchen Lead 02/05/15 Sully Castillo LPN 02/22/15 Florin Vicente MD [address] [facility] [address] [place] [address] Pulmonary Disease 01/19/18 Sindi Mcfarland MA 09/22/18 Mao Powell MD [address] [place] [address] [address] [place] [address] Orthopedic Surgery 05/22/21 Jeff Douglas MD [address] [place] [address] Orthopedic Surgery 07/18/21 documented as of this encounter
--- OUTSIDE RECORDS SUMMARY | 2024-11-28 11:13 | XMS_ITS | Encounter Summary ---
Author Organization [facility] Address [address] [place] [address] Care Team Providers Care Webmethods Consultant Name Role Phone Abhi Ruiz MD Primary Care Provider Unavailabl e Rikki Painter DO Primary Care Provider [phone] Nhi AZUL MD, Morris Wilson Unavailable Haven vailable Louie Purdy MD Primary Care Provider [phone] Kirby Kaur MD Unavailable [phone] Maricruz Burris APRN Primary Care Provide r Nicholas Cristobal MD Unavailable Doctor, No Primary Care Provider UnavailCharlie Greenberg PA-C Unavailable [phone] Sully Castillo LPN Unavailable Unavailable Julio Samayoa APRN Primary Care Provider [phone] Julio Samayoa APRN Primary Care Provider [phone] Florin Vicente MD Unavailable Tiffanie Avery MD Primary Care Provider [phone] Sindi Mcfarland MA Unavailable Unavailable Mao Powell MD Unavailable [phone] Jeff Douglas MD Unavailable [phone] Tiffanie Avery MD Primary Care Provider [phone] Encounter Details Date Type Department Care Team (Late st Contact Info) Description 2005 Historical Encounter Global Abhi Ruiz MD Social [...] 9:30 AM EDT Office Visit [facility] [address], [address] [place] [address] Marcos Santana APRN [address] [place] [address],[address] [place], [place] [id number] documented as of this encounter Visit Diagnoses Not on filedocumented in this encounter Care Teams Webmethods Consultant Relationship Specialty Start Date End Date Abhi Ruiz MD PCP - General 12/29/07 10/04/09 Rikki Painter DO [address] [place] [address] PCP - General Family Medicine 10/05/09 06/12/11 Louie Purdy MD [address] [place] [address] PCP - General Family Medicine 06/13/11 07/05/14 Maricruz Burris APRN [address] [place] [address] PCP - General Nurse Practitioner 07/06/14 11/29/14 Otilia Abreu [place] PCP - General Family Medicine 11/30/14 04/25/15 Julio Samayoa APRN [address] [place] [address] PCP - General nurse practitioner adult care 04/26/15 01/19/17 Julio Samayoa APRN [address] [place], [place] [address] PCP - General Family Practice 01/20/17 01/19/18 Tiffanie Avery MD [address] [place] [address] PCP - General Family Medicine 01/20/18 10/28/23 Tiffanie Avery MD [address] [place] [address] PCP - General Family Medicine 12/22/23 Stew Hankins III, MD Gastroenterology 10/25/10 Kirby Kaur MD [address] [place] [address] Family Medicine 12/23/11 Nicholas Cristobal MD [address] [place] [address] Gastroenterology 08/08/14 Charlie Ayala, PAMindiC [address] [place] [address] Physician Gasoline Tester 02/05/15 Sully Castillo LPN 02/22/15 Florin Vicente MD [address] [place] [address] [place] [address] Pulmonary Disease 01/19/18 Sindi Mcfarland MA 09/22/18 Mao Powell MD [address] [place] [address] Orthopedic Surgery 05/22/21 Jeff Douglas MD [address] [place] [address] [place] [address] Orthopedic Surgery 07/18/21 documented as of this encounter
--- OUTSIDE RECORDS SUMMARY | 2024-11-28 11:13 | XMS_ITS | Encounter Summary ---
Author Organization [facility] Address [address] [place] [address] Care Team Providers Care Supervisor Chassis Assembly Name Role Phone Abhi Ruiz MD Primary Care Provider Unavailabl e Rikki Painter DO Primary Care Provider [phone] Nhi AZUL MD, Morris Wilson Unavailable Haven vailable Louie Purdy MD Primary Care Provider [phone] Kirby Kaur MD Unavailable [phone] Maricruz Burris APRN Primary Care Provide r Nicholas Cristobal MD Unavailable Doctor, No Primary Care Provider UnavailCharlie Greenberg PA-C Unavailable [phone] Sully Castillo LPN Unavailable Unavailable Julio Samayoa APRN Primary Care Provider [phone] Julio Samayoa APRN Primary Care Provider [phone] Florin Vicente MD Unavailable Tiffanie Avery MD Primary Care Provider [phone] Sindi Mcfarland MA Unavailable Unavailable Mao Powell MD Unavailable [phone] Jeff Douglas MD Unavailable [phone] Tiffanie Avery MD Primary Care Provider [phone] Encounter Details Date Type Department Care Team (Late st Contact Info) Description 02/24/2004 Historical Encounter Global Abhi Ruiz MD Social [...] 9:30 AM EDT Office Visit [facility] [address], [address] [place] [address] Marcos Santana APRN [address] [place] [address],[address] [place], [place] [id number] documented as of this encounter Visit Diagnoses Not on filedocumented in this encounter Care Teams Supervisor Chassis Assembly Relationship Specialty Start Date End Date Abhi Ruiz MD PCP - General 12/29/07 10/04/09 Rikki Painter DO [address] [place] [address] PCP - General Family Medicine 10/05/09 06/12/11 Louie Purdy MD [address] [place] [address] PCP - General Family Medicine 06/13/11 07/05/14 Maricruz Burris APRN [address] [place] [address] PCP - General Nurse Practitioner 07/06/14 11/29/14 Otilia Abreu [place] PCP - General Family Medicine 11/30/14 04/25/15 Julio Samayoa APRN [address] [place] [address] PCP - General nurse practitioner adult care 04/26/15 01/19/17 Julio Samayoa APRN [address] [place], [place] [address] PCP - General Family Practice 01/20/17 01/19/18 Tiffanie Avery MD [address] [place] [address] PCP - General Family Medicine 01/20/18 10/28/23 Tiffanie Avery MD [address] [place] [address] PCP - General Family Medicine 12/22/23 Stew Hankins III, MD Gastroenterology 10/25/10 Kirby Kaur MD [address] [place] [address] Family Medicine 12/23/11 Nicholas Cristobal MD [address] [place] [address] Gastroenterology 08/08/14 Charlie Ayala, PAMindiC [address] [place] [address] Physician Dairy Laboratory Technician 02/05/15 Sully Castillo LPN 02/22/15 Florin Vicente MD [address] [place] [address] [place] [address] Pulmonary Disease 01/19/18 Sindi Mcfarland MA 09/22/18 Mao Powell MD [address] [place] [address] Orthopedic Surgery 05/22/21 Jeff Douglas MD [address] [place] [address] [place] [address] Orthopedic Surgery 07/18/21 documented as of this encounter
--- OUTSIDE RECORDS SUMMARY | 2024-11-28 11:13 | XMS_ITS | Encounter Summary ---
Author Organization [facility] Address [address] [place] [address] Care Team Providers Care Refuge Manager Name Role Phone Abhi Ruiz MD Primary Care Provider Unavailabl e Rikki Painter DO Primary Care Provider [phone] Nhi AZUL MD, Morris Wilson Unavailable Haven vailable Louie Purdy MD Primary Care Provider [phone] Kirby Kaur MD Unavailable [phone] Maricruz Burris APRN Primary Care Provide r Nicholas Cristobal MD Unavailable Doctor, No Primary Care Provider UnavailCharlie Greenberg PA-C Unavailable [phone] Sully Castillo LPN Unavailable Unavailable Julio Samayoa APRN Primary Care Provider [phone] Julio Samayoa APRN Primary Care Provider [phone] Florin Vicente MD Unavailable Tiffanie Avery MD Primary Care Provider [phone] Sindi Mcfarland MA Unavailable Unavailable Mao Powlel MD Unavailable [phone] Jeff Douglas MD Unavailable [phone] Tiffanie Avery MD Primary Care Provider Encounter [...] 9:30 AM EDT Office Visit [facility] [address], [address] [place] [address] Marcos Santana APRN [address] [place] [address],[address] [place], [place] [id number] documented as of this encounter Visit Diagnoses Not on filedocumented in this encounter Care Teams Refuge Manager Relationship Specialty Start Date End Date Abhi Ruiz MD PCP - General 12/29/07 10/04/09 Rikki Painter DO [address] [place] [address] PCP - General Family Medicine 10/05/09 06/12/11 Louie Purdy MD [address] [place] [address] PCP - General Family Medicine 06/13/11 07/05/14 Maricruz Burris APRN [address] [place] [address] PCP - General Nurse Practitioner 07/06/14 11/29/14 Otilia Abreu [place] PCP - General Family Medicine 11/30/14 04/25/15 Julio Samayoa APRN [address] [place] [address] PCP - General nurse practitioner adult care 04/26/15 01/19/17 Julio Samayoa APRN [address] [place], [place] [address] PCP - General Family Practice 01/20/17 01/19/18 Tiffanie Avery MD [address] [place] [address] PCP - General Family Medicine 01/20/18 10/28/23 Tiffanie Avery MD [address] [place] [address] PCP - General Family Medicine 12/22/23 Stew Hankins III, MD Gastroenterology 10/25/10 Kirby Kaur MD [address] [place] [address] Family Medicine 12/23/11 Nicholas Cristobal MD [address] [place] [address] Gastroenterology 08/08/14 Charlie Ayala, PAMindiC [address] [place] [address] Physician Senior Operations Analyst 02/05/15 Sully Castillo LPN 02/22/15 Florin Vicente MD [address] [place] [address] [place] [address] Pulmonary Disease 01/19/18 Sindi Mcfarland MA 09/22/18 Mao Powell MD [address] [place] [address] Orthopedic Surgery 05/22/21 Jeff Douglas MD [address] [place] [address] [place] [address] Orthopedic Surgery 07/18/21 documented as of this encounter
--- OUTSIDE RECORDS SUMMARY | 2024-11-28 11:13 | XMS_ITS | Encounter Summary ---
Author Organization [facility] Address [address] [place] [address] Care Team Providers Care Sheet Fed Printer Name Role Phone Nhi AZUL MD, Morris Wilson Unavailable Haven Luoie Pace MD Primary Care Provider [phone] Kirby Kaur MD Unavailable [phone] Maricruz Burris APRN Primary Care Provide r Nicholas Cristobal MD Unavailable Doctor, No Primary Care Provider UnavailCharlie Greenberg PA-C Unavailable [phone] Sully Castillo LPN Unavailable Unavailable Julio Samayoa APRN Primary Care Provider [phone] Julio Samayoa APRN Primary Care Provider [phone] Florin Vicente MD Unavailable Tiffanie Avery MD Primary Care Provider [phone] Sindi Mcfarland MA Unavailable Unavailable Mao Powell MD Unavailable [phone] Jeff Douglas MD Unavailable [phone] Tiffanie Avery MD Primary Care Provider [phone] Reason for Visit * Reason Onset Date Comments Medications Refill 11/21/2011 Encounter Details Date Type Department Care Team (Late st Contact Info) Description 11/21/[address] [facility] [address] [place] [address] Louie Purdy MD [address] [place] [address] Insomnia (Primary Dx) Social History Tobacco Use Types Packs/Day Years [...] 9:30 AM EDT Office Visit [facility] [address], [address] [place] [address] Marcos Santana APRN [address] [place] [address],[address] [place], [place] [id number] documented as of this encounter Visit Diagnoses Diagnosis Insomnia- Primary Insomnia, unspecified documented in this encounter Care Teams Sheet Fed Printer Relationship Specialty Start Date End Date Louie Purdy MD [address] [place] [address] PCP - General Family Medicine 06/13/11 07/05/14 Maricruz Burris APRN [address] [place] [address] PCP - General Nurse Practitioner 07/06/14 11/29/14 Otilia Aberu [place] PCP - General Family Medicine 11/30/14 04/25/15 Julio Samayoa APRN [address] [place] [place] [address] PCP - General nurse practitioner adult care 04/26/15 01/19/17 Julio Samayoa APRN [address] [facility] PCP - General Family Practice 01/20/17 01/19/18 Tiffanie Avery MD [address] [place] [address] PCP - General Family Medicine 01/20/18 10/28/23 Tiffanie Avery MD [address] [place] [address] PCP - General Family Medicine 12/22/23 Stew Hankins III, MD Gastroenterology 10/25/10 Kirby Kaur MD [address] [place] [address] Family Medicine 12/23/11 Nicholas Cristobal MD [address] [place] [address] Gastroenterology 08/08/14 Charlie Ayala, PAMindiC [address] [place] [address] Physician Informatics Physician 02/05/15 Sully Castillo LPN 02/22/15 Florin Vicente MD [address] [place] [address] [address] Pulmonary Disease 01/19/18 Sindi Mcfarland MA 09/22/18 Mao Powell MD [address] [place] [address] Orthopedic Surgery 05/22/21 Jeff Douglas MD [address] [place] [address] [address] [place] [address] Orthopedic Surgery 07/18/21 documented as of this encounter
--- OUTSIDE RECORDS SUMMARY | 2024-11-28 11:13 | XMS_ITS | Encounter Summary ---
Author Organization [facility] Address [address] [place] [address] Care Team Providers Care Foundation Drill Operator Helper Name Role Phone Nhi AZUL MD, Stew Gonzales Unavailable Haven Kirby Bustamante MD Unavailable Nicholas Cristobal MD Unavailable Charlie Ayala PA-C Unavailable [phone] Sully Castillo LPN Unavailable Unavailable Florin Vicente MD Unavailable Tiffanie Avery MD Primary Care Provider [phone] Sindi Mcfarland MA Unavailable Unavailable Mao Powell MD Unavailable [phone] Jeff Douglas MD Unavailable Tiffanie Avery MD Primary Care Provider [phone] Encounter Details Date Type Department Care Team (Late st Contact Info) Description 06/01/2020 Orders Only [facility] [address] [place] [address] Rikki Antonio MD [address] [place], [place] [address] Social History Tobacco Use Types Packs/Day Years [...] 9:30 AM EDT Office Visit [facility] [address] [place] [address] Marcos Santana APRN [address] [place] [address] 230 [place], [place] [id number] documented as of this encounter Visit Diagnoses Not on filedocumented in this encounter Additional Health Concerns Assessment Noted Time PHQ-9 Depression Total Score: 0 04/01/20 19 2:31 PM EST documented as of this encounter Care Teams Foundation Drill Operator Helper Relationship Specialty Start Date End Date Tiffanie Avery MD [address] [place] [address] PCP - General Family Medicine 01/20/18 10/28/23 Tiffanie Avery MD [address] [place] [address] PCP - General Family Medicine 12/22/23 Stew Hankins III, MD Gastroenterology 10/25/10 Kirby Kaur MD [address] [place] [address] [address] [place] [address] Family Medicine 12/23/11 Nicholas Cristobal MD [address] [place] [address] Gastroenterology 08/08/14 Charlie Ayala PA-C [address] [place] [address] Physician Marketing Operations Consultant 02/05/15 Sully Castillo LPN 02/22/15 Florin Vicente MD [address] [facility] [address] [place] [id number] Pulmonary Disease 01/19/18 Sindi Mcfarland MA 09/22/18 Mao Powell MD [address] [place] [address] [place] [address] Orthopedic Surgery 05/22/21 Jeff Douglas MD [address] [place] [address] [address] Orthopedic Surgery 07/18/21 documented as of this encounter
--- OUTSIDE RECORDS SUMMARY | 2024-11-28 11:13 | XMS_ITS | Encounter Summary ---
Author Organization [facility] Address [address] [place] [address] Care Team Providers Care Appointment Manager Name Role Phone Abhi Ruiz MD Primary Care Provider Unavailabl e Rikki Painter DO Primary Care Provider [phone] Nhi AZUL MD, Morris Wilson Unavailable Haven vailable Louie Purdy MD Primary Care Provider [phone] Kirby Kaur MD Unavailable [phone] Maricruz Burris APRN Primary Care Provide r Nicholas Cristobal MD Unavailable Doctor, No Primary Care Provider UnavailCharlie Greenberg PA-C Unavailable [phone] Sully Castillo LPN Unavailable Unavailable Julio Samayoa APRN Primary Care Provider [phone] Julio Samayoa APRN Primary Care Provider [phone] Florin Vicente MD Unavailable Tiffanie Avery MD Primary Care Provider [phone] Sindi Mcfarland MA Unavailable Unavailable Mao Powell MD Unavailable [phone] Jeff Douglas MD Unavailable [phone] Tiffanie Avery MD Primary Care Provider [phone] Encounter Details Date Type Department Care Team (Late st Contact Info) Description 03/22/2004 Historical Encounter Global Abhi Ruiz MD Social [...] AM EDT Office Visit [facility] [address], [address] [place] [address] Marcos Santana APRN [address] [place] [address],[address] [place], [place] [id number] documented as of this encounter Visit Diagnoses Not on filedocumented in this encounter Care Teams Appointment Manager Relationship Specialty Start Date End Date Abhi Ruiz MD PCP - General 12/29/07 10/04/09 Rikki Painter DO [address] [place] [address] PCP - General Family Medicine 10/05/09 06/12/11 Louie Purdy MD [address] [place] [address] PCP - General Family Medicine 06/13/11 07/05/14 Maricruz Burris APRN [address] [place] [address] PCP - General Nurse Practitioner 07/06/14 11/29/14 Otilia Abreu [place] PCP - General Family Medicine 11/30/14 04/25/15 Julio Samayoa APRN [address] [place] [address] PCP - General nurse practitioner adult care 04/26/15 01/19/17 Julio Samayoa APRN [address] [place], [place] [address] PCP - General Family Practice 01/20/17 01/19/18 Tiffanie Avery MD [address] [place] [address] PCP - General Family Medicine 01/20/18 10/28/23 Tiffanie Avery MD [address] [place] [address] PCP - General Family Medicine 12/22/23 Stew Hankins III, MD Gastroenterology 10/25/10 Kirby Kaur MD [address] [place] [address] Family Medicine 12/23/11 Nicholas Cristobal MD [address] [place] [address] Gastroenterology 08/08/14 Charlie Ayala, PAMindiC [address] [place] [address] Physician Crane Crew Supervisor 02/05/15 Sully Castillo LPN 02/22/15 Florin Vicente MD [address] [place] [address] [place] [address] Pulmonary Disease 01/19/18 Sindi Mcfarland MA 09/22/18 Mao Powell MD [address] [place] [address] Orthopedic Surgery 05/22/21 Jeff Douglas MD [address] [place] [address] [place] [address] Orthopedic Surgery 07/18/21 documented as of this encounter
--- OUTSIDE RECORDS SUMMARY | 2024-11-28 11:13 | XMS_ITS | Encounter Summary ---
Author Organization [facility] Address [address] [place] [address] Care Team Providers Care Premix Concrete Batcher Name Role Phone Abhi Ruiz MD Primary Care Provider Unavailabl e Rikki Painter DO Primary Care Provider [phone] Nhi AZUL MD, Morris Wilson Unavailable Haven vailable Louie Purdy MD Primary Care Provider [phone] Kirby Kaur MD Unavailable [phone] Maricruz Burris APRN Primary Care Provide r Nicholas Cristobal MD Unavailable Doctor, No Primary Care Provider UnavailCharlie Greneberg PA-C Unavailable [phone] Sully Castillo LPN Unavailable Unavailable Julio Samayoa APRN Primary Care Provider [phone] Julio Samayoa APRN Primary Care Provider [phone] Florin Vicente MD Unavailable Tiffanie Avery MD Primary Care Provider [phone] Sindi Mcfarland MA Unavailable Unavailable Mao Powell MD Unavailable [phone] Jeff Douglas MD Unavailable [phone] Tiffanie Avery MD Primary Care Provider Encounter Details Date Type Department Care Team (Late st Contact Info) Description 09/02/2004 Historical Encounter Global Abhi Ruiz MD Social [...] 9:30 AM EDT Office Visit [facility] [address], [address] [place] [address] Marcos Santana APRN [address] [place] [address],[address] [place], [place] [id number] documented as of this encounter Visit Diagnoses Not on filedocumented in this encounter Care Teams Premix Concrete Batcher Relationship Specialty Start Date End Date Abhi Ruiz MD PCP - General 12/29/07 10/04/09 Rikki Painter DO [address] [place] [address] PCP - General Family Medicine 10/05/09 06/12/11 Louie Purdy MD [address] [place] [address] PCP - General Family Medicine 06/13/11 07/05/14 Maricruz Burris APRN [address] [place] [address] PCP - General Nurse Practitioner 07/06/14 11/29/14 Otilia Abreu [place], [place] PCP - General Family Medicine 11/30/14 04/25/15 Julio Samayoa APRN [address] [place] [address] PCP - General nurse practitioner adult care 04/26/15 01/19/17 Julio Samayoa APRN [address] [place], [place] [address] PCP - General Family Practice 01/20/17 01/19/18 Tiffanie Avery MD [address] [place] [address] PCP - General Family Medicine 01/20/18 10/28/23 Tiffanie Avery MD [address] [place] [address] PCP - General Family Medicine 12/22/23 Stew Hankins III, MD Gastroenterology 10/25/10 Kibry Kaur MD [address] [place] [address] Family Medicine 12/23/11 Nicholas Cristobal MD [address] [place] [address] Gastroenterology 08/08/14 Charlie Ayala, PAMindiC [address] [place] [address] Physician Psychiatric Aides Teacher 02/05/15 Sully Castillo LPN 02/22/15 Florin Vicente MD [address] [place] [address] [place] [address] Pulmonary Disease 01/19/18 Sindi Mcfarland MA 09/22/18 Mao Powell MD [address] [place] [address] Orthopedic Surgery 05/22/21 Jeff Douglas MD [address] [place] [address] [place] [address] Orthopedic Surgery 07/18/21 documented as of this encounter
--- OUTSIDE RECORDS SUMMARY | 2024-11-28 11:13 | XMS_ITS | Encounter Summary ---
Author Organization [facility] Address [address] [place] [address] Care Team Providers Care Clinical Counselor Name Role Phone Abhi Ruiz MD Primary Care Provider Unavailabl e Rikki Painter DO Primary Care Provider [phone] Nhi AZUL MD, Morris Wilson Unavailable Haven vailable Louie Purdy MD Primary Care Provider [phone] Kirby Kaur MD Unavailable [phone] Maricruz Burris APRN Primary Care Provide r Nicholas Cristobal MD Unavailable Doctor, No Primary Care Provider UnavailCharlie Greenberg PA-C Unavailable [phone] Sully Castillo LPN Unavailable Unavailable Julio Samayoa APRN Primary Care Provider [phone] Julio Samayoa APRN Primary Care Provider [phone] Florin Vicente MD Unavailable Tiffanie Avery MD Primary Care Provider [phone] Sindi Mcfarland MA Unavailable Unavailable Mao Powell MD Unavailable [phone] Jeff Douglas MD Unavailable [phone] Tiffanie Avery MD Primary Care Provider [phone] Encounter Details Date Type Department Care Team (Late st Contact Info) Description 01/17/2004 Historical Encounter Global Abhi Ruiz MD Social [...] 9:30 AM EDT Office Visit [facility] [address], [address] [place] [address] Marcos Santana APRN [address] [place] [address],[address] [place], [place] [address] documented as of this encounter Visit Diagnoses Not on filedocumented in this encounter Care Teams Clinical Counselor Relationship Specialty Start Date End Date Abhi Ruiz MD PCP - General 12/29/07 10/04/09 Rikki Painter DO [address] [place] [address] PCP - General Family Medicine 10/05/09 06/12/11 Louie Purdy MD [address] [place] [address] PCP - General Family Medicine 06/13/11 07/05/14 Maricruz Burris APRN [address] [place] [address] PCP - General Nurse Practitioner 07/06/14 11/29/14 Otilia Abreu [place], [place] PCP - General Family Medicine 11/30/14 04/25/15 Julio Samayoa APRN [address] [place] [address] PCP - General nurse practitioner adult care 04/26/15 01/19/17 Julio Samayoa APRN [address] [place], [place] [address] PCP - General Family Practice 01/20/17 01/19/18 Tiffanie Avery MD [address] [place] [address] PCP - General Family Medicine 01/20/18 10/28/23 Tiffanie Avery MD [address] [place] [address] PCP - General Family Medicine 12/22/23 Stew Hankins III, MD Gastroenterology 10/25/10 Kirby Kaur MD [address] [place] [address] Family Medicine 12/23/11 Nicholas Cristobal MD [address] [place] [address] Gastroenterology 08/08/14 Charlie Ayala, PAMindiC [address] [place] [address] Physician Pricing Specialist 02/05/15 Sully Castillo LPN 02/22/15 Florin Vicente MD [address] [place] [address] [place] [address] Pulmonary Disease 01/19/18 Sindi Mcfarland MA 09/22/18 Mao Powell MD [address] [place] [address] Orthopedic Surgery 05/22/21 Jeff Douglas MD [address] [place] [address] [place] [address] Orthopedic Surgery 07/18/21 documented as of this encounter
--- OUTSIDE RECORDS SUMMARY | 2024-11-28 11:13 | XMS_ITS | Encounter Summary ---
Author Organization [facility] Address [address] [place] [address] Care Team Providers Care Taper And Floater Name Role Phone Nhi AZUL MD, Stew Gonzales Unavailable Haven Kirby Bustamante MD Unavailable [phone] Nicholas Cristobal MD Unavailable Charlie Ayala PA-C Unavailable Sully Castillo LPN Unavailable Unavailable Julio Samayoa APRN Primary Care Provider [phone] Florin Vicente MD Unavailable Tiffanie Avery MD Primary Care Provider [phone] Sindi Mcfarland MA Unavailable Unavailable Mao Powell MD Unavailable Jeff Douglas MD Unavailable [phone] Tiffanie Avery MD Primary Care Provider [phone] Encounter Details Date Type Department Care Team (Late st Contact Info) Description 12/10/2017 Telephone [facility] [address] [facility], [address] [place] [address] Lino Kimbrough, SPACE SYSTEMS OPERATIONS MANAGER Social History Tobacco Use Types Packs/Day Years [...] encounter Miscellaneous Notes * Telephone Encounter - Lino Kimbrough, MARIA DE JESUS - 12/10/2017 2:44 PM EDT Pt instructed on use of MDI inhaler and spacer. Pt verbalized and demonstrated understanding documented in this encounter Plan of Treatment Upcoming Encounters Date Type Department Care Team (Late st Contact Info) Description 12/05/2024 9:30 AM EDT Office Visit [facility] [address], [address] [place] [address] Marcos Santana APRN [address] [place] [address],[address] [place], [place] [address] documented as of this encounter Visit Diagnoses Not on filedocumented in this encounter Care Teams Taper And Floater Relationship Specialty Start Date End Date Julio Samayoa APRN [address] [place] [address] PCP - General Family Practice 01/20/17 01/19/18 Tiffanie Avery MD [address] [place] [address] PCP - General Family Medicine 01/20/18 10/28/23 Tiffanie Avery MD [address] [place] [address] PCP - General Family Medicine 12/22/23 Stew Hankins III, MD Gastroenterology 10/25/10 Kirby Kaur MD [address] [place], [place] [address] [place] [address] Family Medicine 12/23/11 Nicholas Cristobal MD [address] [place] [address] [place] [address] Gastroenterology 08/08/14 Charlie Ayala PA-C [address] [place] [address] Physician Molder Automobile Carpets 02/05/15 Sully Castillo LPN 02/22/15 Florin Vicente MD [address] [facility] [address] [address] Pulmonary Disease 01/19/18 Sindi Mcfarland MA 09/22/18 Mao Powell MD [address] [place] [address] [place] [address] Orthopedic Surgery 05/22/21 Jeff Douglas MD [address] [place] [address] [address] Orthopedic Surgery 07/18/21 documented as of this encounter
--- OUTSIDE RECORDS SUMMARY | 2024-11-28 11:13 | XMS_ITS | Encounter Summary ---
Author Organization [facility] Address [address] [place] [address] Care Team Providers Care Pantry Goods Maker Name Role Phone Nhi AZUL MD, Morris Wilson Unavailable Haven Louie Pace MD Primary Care Provider Kirby Kaur MD Unavailable [phone] Maricruz Burris APRN Primary Care Provide r Nicholas Cristobal MD Unavailable Doctor, No Primary Care Provider UnavailCharlie Greenberg PA-C Unavailable [phone] Sully Castillo LPN Unavailable Unavailable Julio Samayoa APRN Primary Care Provider [phone] Julio Samayoa APRN Primary Care Provider Florin Vicente MD Unavailable Tiffanie Avery MD Primary Care Provider [phone] Sindi Mcfarland MA Unavailable Unavailable Mao Powell MD Unavailable [phone] Jeff Douglas MD Unavailable [phone] Tiffanie Avery MD Primary Care Provider [phone] Reason for Visit * Reason Onset Date Comments Medications Refill 03/25/2014 Encounter Details Date Type Department Care Team (Late st Contact Info) Description 03/25/2014 Refill [facility] [address] [place] [address] Mora Costa LPN 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); Lumbar radiculopathy; Chronic pain Social History Tobacco Use Types Packs/Day Years [...] AM EDT Office Visit [facility] [address], [address] [place] [address] Marcos Santana APRN [address] [place] [address],[address] [place] [address] documented as of this encounter Visit Diagnoses Diagnosis 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 Spinal stenosis, lumbar region, without neurogenic claudication Lumbar radiculopathy Thoracic or lumbosacral neuritis or radiculitis, unspecified Chronic pain Other chronic pain documented in this encounter Care Teams Pantry Goods Maker Relationship Specialty Start Date End Date Louie Purdy MD [address] [place] [address] PCP - General Family Medicine 06/13/11 07/05/14 Maricruz Burris, HARDWARE TECHNICIAN [address] [place] [address] PCP - General Nurse Practitioner 07/06/14 11/29/14 Otilia Abreu [place] PCP - General Family Medicine 11/30/14 04/25/15 Julio Samayoa APRN [address] [place] [address] PCP - General nurse practitioner adult care 04/26/15 01/19/17 Julio Samayoa APRN [address] [place] [address] PCP - General Family Practice 01/20/17 01/19/18 Tiffanie Avery MD [address] [place] [address] PCP - General Family Medicine 01/20/18 10/28/23 Tiffanie Avery MD [address] [place] [address] PCP - General Family Medicine 12/22/23 Stew Hankins III, MD Gastroenterology 10/25/10 Kirby Kaur MD [address] [place] [address] [place] [address] Family Medicine 12/23/11 Nicholas Cristobal MD [address] [place] [address] [address] [place] [address] Gastroenterology 08/08/14 Charlie Ayala, PA-C [address] [place] [address] [address] [place] [address] Physician Home Theater Installer 02/05/15 Sully Castillo LPN 02/22/15 [place] [address] [place] [address] [address] Pulmonary Disease 01/19/18 Sindi Mcfarland MA 09/22/18 Mao Powell MD [address] [place] [address] [address] Orthopedic Surgery 05/22/21 Jeff Douglas MD [address] [place] [address] Orthopedic Surgery 07/18/21 documented as of this encounter
--- OUTSIDE RECORDS SUMMARY | 2024-11-28 11:13 | XMS_ITS | Encounter Summary ---
Author Organization [facility] Address [address] [place] [address] Care Team Providers Care Air Quality Chemist Name Role Phone Abhi Ruiz MD Primary Care Provider Unavailabl e Rikki Painter DO Primary Care Provider [phone] Nhi AZUL MD, Morris Wilson Unavailable Haven vailable Louie Purdy MD Primary Care Provider [phone] Kirby Kaur MD Unavailable [phone] Maricruz Burris APRN Primary Care Provide r Nicholas Cristobal MD Unavailable Doctor, No Primary Care Provider UnavailCharlie Greenberg PA-C Unavailable [phone] Sully Castillo LPN Unavailable Unavailable Julio Samayoa APRN Primary Care Provider [phone] Julio Samayoa APRN Primary Care Provider [phone] Florin Vicente MD Unavailable Tiffanie Avery MD Primary Care Provider [phone] Sindi Mcfarland MA Unavailable Unavailable Mao Powell MD Unavailable [phone] Jeff Douglas MD Unavailable [phone] Tiffanie Avery MD Primary Care Provider Encounter Details Date Type Department Care Team (Late st Contact Info) Description 11/03/2003 Historical Encounter Global Abhi Ruiz MD Social [...] 9:30 AM EDT Office Visit [facility] [address], [address] [place] [address] Marcos Santana APRN [address] [place] [address],[address] [place], [place] [id number] documented as of this encounter Visit Diagnoses Not on filedocumented in this encounter Care Teams Air Quality Chemist Relationship Specialty Start Date End Date Abhi Ruiz MD PCP - General 12/29/07 10/04/09 Rikki Painter DO [address] [place] [address] PCP - General Family Medicine 10/05/09 06/12/11 Louie Purdy MD [address] [place] [address] PCP - General Family Medicine 06/13/11 07/05/14 Maricruz Burris APRN [address] [place] [address] PCP - General Nurse Practitioner 07/06/14 11/29/14 Otilia Abreu [place] PCP - General Family Medicine 11/30/14 04/25/15 Julio Samayoa APRN [address] [place] [address] PCP - General nurse practitioner adult care 04/26/15 01/19/17 Julio Samayoa APRN [address] [place], [place] [id number] PCP - General Family Practice 01/20/17 01/19/18 Tiffanie Avery MD [address] [place] [address] PCP - General Family Medicine 01/20/18 10/28/23 Tiffanie Avery MD [address] [place] [address] PCP - General Family Medicine 12/22/23 Stew Hankins III, MD Gastroenterology 10/25/10 Kirby Kaur MD [address] [place] [address] Family Medicine 12/23/11 Nicholas Cristobal MD [address] [place] [address] Gastroenterology 08/08/14 Charlie Ayala, PAMindiC [address] [place] [address] Physician General Expeditor 02/05/15 Sully Castillo LPN 02/22/15 Florin Vicente MD [address] [place] [address] [place] [address] Pulmonary Disease 01/19/18 Sindi Mcfarland MA 09/22/18 Mao Powell MD [address] [place] [address] Orthopedic Surgery 05/22/21 Jeff Douglas MD [address] [place] [address] [place] [address] Orthopedic Surgery 07/18/21 documented as of this encounter
--- OUTSIDE RECORDS SUMMARY | 2024-11-28 11:13 | XMS_ITS | Encounter Summary ---
Author Organization [facility] Address [address] [place] [address] Care Team Providers Care Manager Medicare Marketing Name Role Phone Abhi Ruiz MD Primary Care Provider Unavailabl e Rikki Painter DO Primary Care Provider [phone] Nhi AZUL MD, Morris Wilson Unavailable Haven vailable Louie Purdy MD Primary Care Provider [phone] Kibry Kaur MD Unavailable [phone] Maricruz Burris APRN Primary Care Provide r Nicholas Cristobal MD Unavailable Doctor, No Primary Care Provider UnavailCharlie Greenberg PA-C Unavailable [phone] Sully Castillo LPN Unavailable Unavailable Julio Samayoa APRN Primary Care Provider [phone] Juilo Samayoa APRN Primary Care Provider [phone] Florin Vicente MD Unavailable Tiffanie Avery MD Primary Care Provider [phone] Sindi Mcfarland MA Unavailable Unavailable Mao Powell MD Unavailable [phone] Jeff Douglas MD Unavailable [phone] Tiffanie Avery MD Primary Care Provider Encounter Details Date Type Department Care Team (Late st Contact Info) Description 12/25/2004 Historical Encounter Global Abhi Ruiz MD Social [...] 9:30 AM EDT Office Visit [facility] [address], [address] [place] [address] Marcos Santana APRN [address] [place] [address],[address] [place], [place] [address] documented as of this encounter Visit Diagnoses Not on filedocumented in this encounter Care Teams Manager Medicare Marketing Relationship Specialty Start Date End Date Abhi Ruiz MD PCP - General 12/29/07 10/04/09 Rikki Painter DO [address] [place] [address] PCP - General Family Medicine 10/05/09 06/12/11 Louie Purdy MD [address] [place] [address] PCP - General Family Medicine 06/13/11 07/05/14 Maricruz Burris APRN [address] [place] [address] PCP - General Nurse Practitioner 07/06/14 11/29/14 Otilia Abreu [place], [place] PCP - General Family Medicine 11/30/14 04/25/15 Julio Samayoa APRN [address] [place] [address] PCP - General nurse practitioner adult care 04/26/15 01/19/17 Julio Samayoa APRN [address] [place], [place] [id number] PCP - General Family Practice 01/20/17 01/19/18 Tiffanie Avery MD [address] [place] [address] PCP - General Family Medicine 01/20/18 10/28/23 Tiffanie Avery MD [address] [place] [address] PCP - General Family Medicine 12/22/23 Stew Hankins III, MD Gastroenterology 10/25/10 Kirby Kaur MD [address] [place] [address] Family Medicine 12/23/11 Nicholas Cristobal MD [address] [place] [address] Gastroenterology 08/08/14 Charlie Ayala, PAMindiC [address] [place] [address] Physician Dry Roaster 02/05/15 Sully Castillo LPN 02/22/15 Florin Vicente MD [address] [place] [address] [place] [address] Pulmonary Disease 01/19/18 Sindi Mcfarland MA 09/22/18 Mao Powell MD [address] [place] [address] Orthopedic Surgery 05/22/21 Jeff Douglas MD [address] [place] [address] [place] [address] Orthopedic Surgery 07/18/21 documented as of this encounter
--- OUTSIDE RECORDS SUMMARY | 2024-11-28 11:13 | XMS_ITS | Encounter Summary ---
Author Organization [facility] Address [address] [place] [address] Care Team Providers Care Director Of Radiology Name Role Phone Abhi Ruiz MD Primary Care Provider Unavailabl e Rikki Painter DO Primary Care Provider [phone] Nhi AZUL MD, Morris Wilson Unavailable Haven vailable Louie Puryd MD Primary Care Provider [phone] Kirby Kaur MD Unavailable [phone] Maricruz Burris APRN Primary Care Provide r Nicholas Cristobal MD Unavailable Doctor, No Primary Care Provider UnavailCharlie Greenberg PA-C Unavailable [phone] Sully Castillo LPN Unavailable Unavailable Julio Samayoa APRN Primary Care Provider [phone] Julio Samayoa APRN Primary Care Provider [phone] Florin Vicente MD Unavailable Tiffanie Avery MD Primary Care Provider [phone] Sindi Mcfarland MA Unavailable Unavailable Mao Powell MD Unavailable [phone] Jeff Douglas MD Unavailable [phone] Tiffanie Avery MD Primary Care Provider Encounter Details Date Type Department Care Team (Late st Contact Info) Description 07/31/2005 Historical Encounter Global Abhi Ruiz MD Social [...] 9:30 AM EDT Office Visit [facility] [address], [address] [place] [address] Marcos Santana APRN [address] [place] [address],[address] [place], [place] [address] documented as of this encounter Visit Diagnoses Not on filedocumented in this encounter Care Teams Director Of Radiology Relationship Specialty Start Date End Date Abhi Ruiz MD PCP - General 12/29/07 10/04/09 Rikki Painter DO [address] [place] [address] PCP - General Family Medicine 10/05/09 06/12/11 Louie Purdy MD [address] [place] [address] PCP - General Family Medicine 06/13/11 07/05/14 Maricruz Burris APRN [address] [place] [address] PCP - General Nurse Practitioner 07/06/14 11/29/14 Otilia Abreu [place] PCP - General Family Medicine 11/30/14 04/25/15 Julio Samayoa APRN [address] [place] [address] PCP - General nurse practitioner adult care 04/26/15 01/19/17 Julio Samayoa APRN [address] [place], [place] [address] PCP - General Family Practice 01/20/17 01/19/18 Tiffanie Avery MD [address] [place] [address] PCP - General Family Medicine 01/20/18 10/28/23 Tiffanie Avery MD [address] [place] [address] PCP - General Family Medicine 12/22/23 Stew Hankins III, MD Gastroenterology 10/25/10 Kirby Kaur MD [address] [place] [address] Family Medicine 12/23/11 iNcholas Cristobal MD [address] [place] [address] Gastroenterology 08/08/14 Charlie Ayala, PAMindiC [address] [place] [address] Physician Representative Government Relations 02/05/15 Sully Castillo LPN 02/22/15 Florin Vicente MD [address] [place] [address] [place] [address] Pulmonary Disease 01/19/18 Sindi Mcfarland MA 09/22/18 Mao Poewll MD [address] [place] [address] Orthopedic Surgery 05/22/21 Jeff Douglas MD [address] [place] [address] [place] [address] Orthopedic Surgery 07/18/21 documented as of this encounter
--- OUTSIDE RECORDS SUMMARY | 2024-11-28 11:13 | XMS_ITS | Encounter Summary ---
Author Organization [facility] Address [address] [place] [address] Care Team Providers Care Service Center Manager Name Role Phone Nhi AZUL MD, Stew Gonzales Unavailable Haven Kirby Bustamante MD Unavailable Nicholas Cristobal MD Unavailable Charlie Ayala PA-C Unavailable [phone] Sully Castillo LPN Unavailable Unavailable Florin Vicente MD Unavailable Tiffanie Avery MD Primary Care Provider [phone] Sindi Mcfarland MA Unavailable Unavailable Mao Powell MD Unavailable Jeff Douglas MD Unavailable Tiffanie Avery MD Primary Care Provider [phone] Encounter Details Date Type Department Care Team (Late st Contact Info) Description 07/12/2021 Orders Only Lab [address] [facility] [place] [address] Jessie Ogden, HERPETOLOGIST [address] [place], [place] [phone] Pre-operative laboratory examination (Primary Dx) Social History Tobacco Use Types [...] Description 12/05/2024 9:30 AM EDT Office Visit [facility] [address], [address] [place] [address] Marcos Santana, HERPETOLOGIST [address] [place] [address],[address] [place] [address] documented as of this encounter Results * SARS-CoV-2, QL, PCR (Routine/Outpatient) (07/26/2021 2:06 PM EST) SARS-CoV-2 RNA Undetected 07/26/2021 6:46 PM EST [facility] Comment: Testing was performed using the [employer] Direct. Fact sheets for this Emergency Use Authorization (EUA) assay can be found at the following links: For Healthcare Providers: https://www.fda.gov/media/987703/download For Patients: https://www.fda.gov/media/791726/download Test Performed by: [facility],[address] [place] [address], Cardiovascular Or Nurse: Ashley Gonzalez D.O.; CLIA#: [id number] Throat (Throat) 07/26/2021 2 :06 PM EST 07/26/2021 4:17 PM EST Narrative [facility] - 07/26/2021 6:46 PM EST Symptomatic?->No Indications (select all that apply)->Pre-op/ planned procedure Was specimen collected by a [facility] produce production team member?->Yes NO KNOWN ALLERGIES us Jessie Ogden HERPETOLOGIST MICROBIOLOGY - GENERAL ORDER ANTHONY Final Result [facility] [address] [facility] [address] [place] [address] documented in this encounter Visit Diagnoses Diagnosis Pre-operative laboratory examination- Primary Pre-procedural laboratory examination documented in this encounter Additional Health Concerns Assessment Noted Time PHQ-9 Depression Total Score: 0 04/01/20 19 2:31 PM EST documented as of this encounter Care Teams Service Center Manager Relationship Specialty Start Date End Date Tiffanie Avery MD [address] [place] [address] PCP - General Family Medicine 01/20/18 10/28/23 Tiffanie Avery MD [address] [place] [address] PCP - General Family Medicine 12/22/23 Stew Hankins III, MD Gastroenterology 10/25/10 Kirby Kaur MD [address] [place] [address] [address] [place] [address] Family Medicine 12/23/11 Nicholas Cristobal MD [address] [place] [address] [address] [place] [address] Gastroenterology 08/08/14 Charlie Ayala PA-C [address] [place] [address] [address] [place] [address] Physician Laminated Plastics Assembler And Gluer 02/05/15 Sully Castillo LPN 02/22/15 [place] [address] [place] [address] [address] [place] [address] Pulmonary Disease 01/19/18 Sindi Mcfarland MA 09/22/18 Mao Powell MD [address] [place] [address] [address] [place] [address] Orthopedic Surgery 05/22/21 Jeff Douglas MD [address] [place] [address] Orthopedic Surgery 07/18/21 documented as of this encounter
--- OUTSIDE RECORDS SUMMARY | 2024-11-28 11:14 | XMS_ITS | Encounter Summary ---
Author Organization [facility] Address [address] [place] [address] Care Team Providers Care Harmonic Analyst Name Role Phone Rikki Painter DO Primary Care Provider [phone] Nhi AZUL MD, Morris Wilson Unavailable Haven Louie Pace MD Primary Care Provider [phone] Kirby Kaur MD Unavailable [phone] Maricruz Burris APRN Primary Care Provide r Nicholas Cristobal MD Unavailable Doctor, No Primary Care Provider UnavailCharlie Greenberg PA-C Unavailable [phone] Sully Castillo LPN Unavailable Unavailable Julio Samayoa APRN Primary Care Provider [phone] Julio Samayoa APRN Primary Care Provider [phone] Florin Vicente MD Unavailable Tiffanie Avery MD Primary Care Provider [phone] Sindi Mcfarland MA Unavailable Unavailable Mao Powell MD Unavailable [phone] Jeff Douglas MD Unavailable [phone] Tiffanie Avery MD Primary Care Provider [phone] Encounter Details Date Type Department Care Team (Late st Contact Info) Description 09/30/2010 Telephone [facility] [address] [place] [address] Neelam Capone, RN Social History Tobacco Use Types Packs/Day [...] encounter Miscellaneous Notes * Telephone Encounter - Rikki Painter DO - 09/30/2010 10:22 AM EDT Metformin Rx sent to pharmacy. * Telephone Encounter - Neelam Capone LPN - 09/30/2010 10:08 AM EDT Pt states that he wants his medicine for his diabetes called to [facility]. He states that you said after the labs were resulted that you would send his medicine in for this. documented in this encounter Plan of Treatment Upcoming Encounters Date Type Department Care Team (Late st Contact Info) Description 12/05/2024 9:30 AM EDT Office Visit [facility] [address] [address] Marcos Santana, PACS ADMINISTRATOR [address] [place] [address],[address] [place] [address] documented as of this encounter Visit Diagnoses Diagnosis DM (diabetes mellitus) (HCC)- Primary Type II or unspecified type diabetes mellitus without mention of complication, not stated as uncontrolled documented in this encounter Care Teams Harmonic Analyst Relationship Specialty Start Date End Date Rikki Painter DO [address] [place] [address] PCP - General Family Medicine 10/05/09 06/12/11 Louie Purdy MD [address] [place] [address] PCP - General Family Medicine 06/13/11 07/05/14 Maricruz Burris APRN [address] [place] [address] PCP - General Nurse Practitioner 07/06/14 11/29/14 Otilia Abreu [place], [place] PCP - General Family Medicine 11/30/14 04/25/15 Julio Samayoa APRN [address] [place] [address] PCP - General nurse practitioner adult care 04/26/15 01/19/17 Julio Samayoa APRN [address] [place] [address] PCP - General Family Practice 01/20/17 01/19/18 Tiffanie Avery MD [address] [place] [id number] PCP - General Family Medicine 01/20/18 10/28/23 Tiffanie Avery MD [address] [place] [address] PCP - General Family Medicine 12/22/23 Stew Hankins III, MD Gastroenterology 10/25/10 Kirby Kaur MD [address] [place] [address] Family Medicine 12/23/11 Nicholas Cristobal MD [address] [place] [address] Gastroenterology 08/08/14 Charlie Ayala PA-C [address] [place] [address] [address] [place] [address] Physician Slitter And Rewinder Machine Operator 02/05/15 Sully Castillo LPN 02/22/15 Florin Vicente MD [address] [facility] [place] [address] Pulmonary Disease 01/19/18 Sindi Mcfarland MA 09/22/18 Mao Powell MD [address] [place] [address] [place] [address] Orthopedic Surgery 05/22/21 Jeff Douglas MD [address] [place] [address] [place] [address] Orthopedic Surgery 07/18/21 documented as of this encounter
--- OUTSIDE RECORDS SUMMARY | 2024-11-28 11:14 | XMS_ITS | Encounter Summary ---
Author Organization [facility] Address [address] [place] [address] Care Team Providers Care Fire Lieutenant Name Role Phone Nhi AZUL MD, Stew Gonzales Unavailable Haven Kirby Bustamante MD Unavailable Nicholas Cristobal MD Unavailable Charlie Ayala PA-C Unavailable Sully Castillo LPN Unavailable Unavailable Julio Samayoa APRN Primary Care Provider [phone] Florin Vicente MD Unavailable Tiffanie Avery MD Primary Care Provider [phone] Sindi Mcfarland MA Unavailable Unavailable Mao Powell MD Unavailable Jeff Douglas MD Unavailable Tiffanie Avery MD Primary Care Provider [phone] Reason for Referral * Radiology Services (Routine) - Closed Specialty Diagnoses / Procedures Referred By Contac t Referred To Contact Radiology Diagnoses Coronary artery disease involving [place] coronary artery of [place] heart with unstable angina pectoris (HCC) Coronary artery disease involving [place] heart, angina presence unspecified, unspecified vessel or lesion type Procedures CT Angiogram Coronary Joann Ayoub MD [address] [place] [address] Phone: tel: fax: MAIN [facility] [address] [facility] [place] [address] Phone: tel: Referral ID Status Reason Start Date Expiration Date Visits Re quested Visits Authorized [id number] Closed 03/31/2017 03/31/2018 1 1 Encounter Details Date Type Department Care Team ([facility] Contact Info) Description 03/31/2017 Orders Only [facility] [address] [place] [address] [place] [id number] Joann Ayoub MD [address] [place] [address] [place] [address] [id number] Coronary artery disease involving [place] coronary artery of [place] heart with unstable angina pectoris (Primary Dx); Coronary artery disease involving [place] heart, angina presence unspecified, unspecified vessel or lesion type Social History Tobacco Use Types Packs/Day [...] 9:30 AM EDT Office Visit [facility] [address] [place] [phone] Marcos Santana APRN [address] [place] [address] [address] [place] [address] documented as of this encounter Results * CT Angiogram Coronary (04/02/2017 10:48 AM EST) Anatomical Region Laterality Modality Chest Computed Tomogra phy 04/02/2017 Narrative 04/02/2017 2:23 PM EST [facility] [address] [place] [address] Radiology PATIENT NAME: Weston Parson Sr. MR#: [id number] PROCEDURE DATE: 04/02/2017 ROOM#: ORDERING PHYS: Joann Ayoub MD STUDY: Coronary CT Angiography with Calcium Scoring IMPRESSION: 1. Patent proximal LAD stent. There is mild stenosis of the mid left circumflex artery as a result of mixed plaque. 2. No significant non coronary cardiac findings in particular normal cardiac chambers, non-coronary vessels in the field of view and unremarkable pericardium. 3. Please refer to Radiologist report for extracardiac findings. CLINICAL INDICATION: Symptoms: Coronary artery disease status post recent percutaneous coronary intervention to the LAD, evaluate for stent patency. CLINICAL DATA Height: 5 feet 9 inches Weight: 205 pounds Risk factors: Known coronary disease status post PCI LAD TECHNIQUE: PROCEDURE DATA Image acquisition: A Silvia 256 iCT scanner was used for data acquisition. An ECG synchronized Cardiac CT was performed from cardiac base to apex using retrospective gating. A total of 90 mL Isovue 370mgI/mL contrast media was administered at 5ml/sec followed by a saline flush using a biphasic injection protocol. A tube voltage of 120kVp was used. The patient received the following medications prior to the Cardiac CT: 50mg Metoprolol and no 0.4mg sublingual nitroglycerin. The heart rate at the time of acquisition was 60 BPM. Image reconstruction: Transaxial images were reconstructed and data was reviewed interactively on an advanced workstation capable of 2 and 3 dimensional displays in all conventional reconstruction formats including multiplanar reformations, maximum intensity projections, curved multiplanar reformations, and volume rendered reconstructions. Selected routine images displaying relevant coronary anatomy and pathology were saved and sent to PACS. Complications: None Technical quality: Overall image quality is Good. Coronary artery opacification is adequate and the images are free of significant artifact. TOTAL DLP (Dose-Length Product): 1800 mGy-cm. (25 mSv) Please note: The reported value represents the total of one or more individual components during the CT acquisition on this date and at this time, and as such, the same value may appear in more than one CT report depending on the interpreting/reporting physicians. COMPARISON: Coronary CT angiogram dated 03/12/2017 (prior to PCI of LAD) FINDINGS: -CORONARY CT ANGIOGRAPHY- CORONARY ARTERIES Normal coronary origins and proximal course. The coronary arterial system is left dominant. Note: Stenosis is reported as maximum percentage diameter stenosis. Stenosis grading is reported using the following CAD-RADS quantitative scheme: CAD-RADS 0: No stenosis CAD-RADS 1: 1-24% - Minimal stenosis CAD-RADS 2: 25-49% - Mild stenosis CAD-RADS 3: 50-69% - Moderate stenosis CAD-RADS 4: (A) 70-99% or (B) LM >50% or 3-vessel obstructive (>/= 70%) disease - Severe Stenosis CAD-RADS 5: 100% - Total occlusion CAD-RADS N: Non-diagnositic study Left main: The left main is a large vessel that bifurcates into the LAD and circumflex. There is no significant disease of the left main. LAD and Diagonals: The LAD is a large vessel that supplies 2 significant diagonal branches prior to termination as a recurrent apical branch. The proximal portion of the LAD as the patent stent. LCx and Obtuse Marginals: The left circumflex is a moderate-sized vessel, dominant for the posterior circulation is of 1 significant obtuse marginal branch. There is mild stenosis of the mid left circumflex artery as a result of mixed calcified plaque. RCA: The RCA is a moderate-sized vessel, no significant coronary disease noted in the RCA. NON CORONARY CARDIAC FINDINGS Normal cardiac chamber size. No pericardial thickening or calcification. Normal interatrial and interventricular septum, atrioventricular valves, ventriculo-arterial valves, pulmonary veins and imaged central veins. Thoracic aorta and imaged thoracic aortic branches in the field of view are unremarkable. CRITICAL RESULT: No. COMMUNICATION: Per this report. THIS IS AN ELECTRONICALLY VERIFIED REPORT 04/02/2017 2:23 PM: MD Wilfred Hurtado MD as TD: 04/02/2017 JOB #: [id number] Radiology Page 1 of 1 COPY Procedure Note Wilfred Cantu MD - 04/02/2017 [place] [address] Radiology PATIENT NAME: Weston Parson . MR#: [id number] PROCEDURE DATE: 04/02/2017 ROOM#: ORDERING PHYS: Joann Ayoub MD STUDY: Coronary CT Angiography with Calcium Scoring IMPRESSION: 1. Patent proximal LAD stent. There is mild stenosis of the mid left circumflex artery as a result of mixed plaque. 2. No significant non coronary cardiac findings in particular normalcardiac chambers, non-coronary vessels in the field of view and unremarkable pericardium. 3. Please refer to Radiologist report for extracardiac findings. CLINICAL INDICATION: Symptoms: Coronary artery disease status post recent percutaneous coronaryintervention to the LAD, evaluate for stent patency. CLINICAL DATA Height: 5 feet 9 inches Weight: 205 pounds Risk factors: Known coronary disease status post PCI LAD TECHNIQUE: PROCEDURE DATA Image acquisition: A Silvia 256 iCT scanner was used for data acquisition. An ECGsynchronized Cardiac CT was performed from cardiac base to apex using retrospective gating. A total of 90 mL Isovue 370mgI/mL contrast media was administeredat 5ml/sec followed by a saline flush using a biphasic injection protocol.A tube voltage of 120kVp was used. The patient received the following medications prior to the Cardiac CT:50mg Metoprolol and no 0.4mg sublingual nitroglycerin. The heart rate at the time of acquisition was 60 BPM. Image reconstruction: Transaxial images were reconstructed and data was reviewed interactivelyon an advanced workstation capable of 2 and 3 dimensional displays in all conventional reconstruction formats including multiplanar reformations, maximum intensity projections, curved multiplanar reformations, andvolume rendered reconstructions. Selected routine images displaying relevant coronary anatomy and pathology were saved and sent to PACS. Complications: None Technical quality: Overall image quality is Good. Coronary artery opacification is adequate and the images are free of significant artifact. TOTAL DLP (Dose-Length Product): 1800 mGy-cm. (25 mSv) Please note: The reported value represents the total of one or more individual components during the CT acquisition on this date and at this time, and as such,the same value may appear in more than one CT report depending on the interpreting/reporting physicians. COMPARISON: Coronary CT angiogram dated 03/12/2017 (prior to PCI of LAD) FINDINGS: -CORONARY CT ANGIOGRAPHY- CORONARY ARTERIES Normal coronary origins and proximal course. The coronary arterial systemis left dominant. Note: Stenosis is reported as maximum percentage diameter stenosis.Stenosis grading is reported using the following CAD-RADS quantitative scheme: CAD-RADS 0: No stenosis CAD-RADS 1: 1-24% - Minimal stenosis CAD-RADS 2: 25-49% - Mild stenosis CAD-RADS 3: 50-69% - Moderate stenosis CAD-RADS 4: (A) 70-99% or (B) LM >50% or 3-vessel obstructive (>/= 70%) disease - Severe Stenosis CAD-RADS 5: 100% - Total occlusion CAD-RADS N: Non-diagnositic study Left main: The left main is a large vessel that bifurcates into the LADand circumflex. There is no significant disease of the left main. LAD and Diagonals: The LAD is a large vessel that supplies 2 significant diagonal branches prior to termination as a recurrent apical branch.The proximal portion of the LAD as the patent stent. LCx and Obtuse Marginals: The left circumflex is a moderate-sizedvessel, dominant for the posterior circulation is of 1 significant obtusemarginal branch. There is mild stenosis of the mid left circumflex artery as aresult of mixed calcified plaque. RCA: The RCA is a moderate-sized vessel, no significant coronary disease noted in the RCA. NON CORONARY CARDIAC FINDINGS Normal cardiac chamber size. No pericardial thickening or calcification. Normal interatrial and interventricular septum, atrioventricular valves, ventriculo-arterial valves, pulmonary veins and imaged central veins. Thoracic aorta and imaged thoracic aortic branches in the field of vieware unremarkable. CRITICAL RESULT: No. COMMUNICATION: Per this report. THIS IS AN ELECTRONICALLY VERIFIED REPORT 04/02/2017 2:23 PM: MD Wilfred Hurtado MD as TD: 04/02/2017 JOB #: [id number] Radiology Page 1 of 1COPY Joann Ayoub MD IMG CT ORDERABLES Final Resu lt documented in this encounter Visit Diagnoses Diagnosis Coronary artery disease involving [place] coronary artery of [place] heart with unstable angina pectoris (HCC)- Primary Coronary artery disease involving [place] heart, angina presence unspecified, unspecified vessel or lesion type Coronary artery disease involving [place] coronary artery of [place] heart with unstable angina pectoris (HCC) Coronary artery disease involving [place] heart, angina presence unspecified, unspecified vessel or lesion type Atypical chest pain Other chest pain documented in this encounter Care Teams Fire Lieutenant Relationship Specialty Start Date End Date Julio Samayoa APRN [address] [place] [address] PCP - General Family Practice 01/20/17 01/19/18 Tiffanie Avery MD [address] [place] [address] PCP - General Family Medicine 01/20/18 10/28/23 Tiffanie Avery MD [address] [place] [address] PCP - General Family Medicine 12/22/23 Stew Hankins III, MD Gastroenterology 10/25/10 Kirby Kaur MD [address] [place] [address] [address] [place] [address] Family Medicine 12/23/11 Nicholas Cristobal MD [address] [place] [address] [address] [place] [address] Gastroenterology 08/08/14 Charlie Ayala, PAMindiC [address] [place] [address] [address] [place] [address] Physician Dyeing Machine Tender 02/05/15 Sully Castillo LPN 02/22/15 [place] [address] [place] [address] [address] [place] [address] Pulmonary Disease 01/19/18 Sindi Mcfarland MA 09/22/18 Mao Powell MD [address] [place] [address] [address] [place] [address] Orthopedic Surgery 05/22/21 Jeff Douglas MD [address] [place] [address] Orthopedic Surgery 07/18/21 documented as of this encounter
--- OUTSIDE RECORDS SUMMARY | 2024-11-28 11:14 | XMS_ITS | Encounter Summary ---
Author Organization [facility] Address [address] [place] [address] Care Team Providers Care Long Term Care Administrator Name Role Phone Abhi Ruiz MD Primary Care Provider Unavailabl e Rikki Painter DO Primary Care Provider [phone] Nhi AZUL MD, Morris Wilson Unavailable Haven vailable Louie Purdy MD Primary Care Provider [phone] Kirby Kaur MD Unavailable [phone] Maricruz Burris APRN Primary Care Provide r Nicholas Cristobal MD Unavailable Doctor, No Primary Care Provider UnavailCharlie Greenberg PA-C Unavailable [phone] Sully Castillo LPN Unavailable Unavailable Julio Samayoa APRN Primary Care Provider [phone] Julio Samayoa APRN Primary Care Provider [phone] lForin Vicente MD Unavailable Tiffanie Avery MD Primary Care Provider [phone] Sindi Mcfarland MA Unavailable Unavailable Mao Powell MD Unavailable [phone] Jeff Douglas MD Unavailable [phone] Tiffanie Avery MD Primary Care Provider Encounter Details Date Type Department Care Team (Late st Contact Info) Description 02/17/2003 Historical Encounter Global Sima Medley APRN [address] [facility] [address] [place] [address] [place] [address] Social History Tobacco Use Types Packs/Day Years [...] 9:30 AM EDT Office Visit [facility] [address], [address] [place] [address] Marcos Santana APRN [address] [place] [address],[address] [place] [address] documented as of this encounter Visit Diagnoses Not on filedocumented in this encounter Care Teams Long Term Care Administrator Relationship Specialty Start Date End Date Abhi Ruiz MD PCP - General 12/29/07 10/04/09 Rikki Painter DO [address] [place] [address] PCP - General Family Medicine 10/05/09 06/12/11 Louie Purdy MD [address] [place] [address] PCP - General Family Medicine 06/13/11 07/05/14 Maricruz Burris, STAGE BUILDER [address] [place], [place] [id number] PCP - General Nurse Practitioner 07/06/14 11/29/14 Otilia Abreu [place] PCP - General Family Medicine 11/30/14 04/25/15 Julio Samayoa APRN [address] [place] [address] PCP - General nurse practitioner adult care 04/26/15 01/19/17 Julio Samayoa APRN [address] [facility] [place] [address] PCP - General Family Practice 01/20/17 01/19/18 Tiffanie Avery MD [address] [place] [address] PCP - General Family Medicine 01/20/18 10/28/23 Tiffanie Avery MD [address] [place] [address] [id number] PCP - General Family Medicine 12/22/23 Stew Hankins III, MD Gastroenterology 10/25/10 Kirby Kaur MD [address] [place] [address] Family Medicine 12/23/11 Nicholas Cristobal MD [address] [place] [address] Gastroenterology 08/08/14 Charlie Ayala, PAMindiC [address] [place] [address] Physician Cured Meats Supervisor 02/05/15 Sully Castillo LPN 02/22/15 [place] [address] [place] [address] [address] Pulmonary Disease 01/19/18 Sindi Mcfarland MA 09/22/18 Mao Powell MD [address] [place] [address] [id number] Orthopedic Surgery 05/22/21 Jeff Douglas MD [address] [place] [address] Orthopedic Surgery 07/18/21 documented as of this encounter
--- OUTSIDE RECORDS SUMMARY | 2024-11-28 11:14 | XMS_ITS | Encounter Summary ---
Author Organization [facility] Address [address] [place] [address] Care Team Providers Care Sane Nurse Name Role Phone Nhi AZUL MD, Stew Gonzales Unavailable Haven Kirby Bustamante MD Unavailable [phone] Nicholas Cristobal MD Unavailable Charlie Ayala PA-C Unavailable [phone] Sully Castillo LPN Unavailable Unavailable Florin Vicente MD Unavailable Tiffanie Avery MD Primary Care Provider [phone] Sindi Mcfarland MA Unavailable Unavailable Mao Powell MD Unavailable [phone] Jeff Douglas MD Unavailable Tiffanie Avery MD Primary Care Provider [phone] Reason for Visit * Reason Onset Date Comments Other 06/21/2018 Encounter Details Date Type Department Care Team (Late st Contact Info) Description 06/21/2018 Telephone [address] [place] [place] [address] Tiffanie Avery MD [address] [place] [address] Other Social History Tobacco Use Types Packs/Day [...] encounter Miscellaneous Notes * Telephone Encounter - Wilton Gleasonana Valle - 06/21/2018 4:21 PM EST Pharmacist called stating patient was checking on prescription. Lab results stated Vit D would be called into pharmacy but no rx has been received. Please advise documented in this encounter Plan of Treatment Upcoming Encounters Date Type Department Care Team (Late st Contact Info) Description 12/05/2024 9:30 AM EDT Office Visit [facility] [address], [address] [place] [address] Marcos Santana APRN [address] [place] [address],[address] [place] [address] documented as of this encounter Visit Diagnoses Diagnosis Vitamin D deficiency- Primary Unspecified vitamin D deficiency documented in this encounter Additional Health Concerns Assessment Noted Time PHQ-9 Depression Total Score: 0 12/25/19 18 10:45 AM EDT documented as of this encounter Care Teams Sane Nurse Relationship Specialty Start Date End Date Tiffanie Avery MD [address] [place] [address] PCP - General Family Medicine 01/20/18 10/28/23 Tiffanie Avery MD [address] [place] [address] PCP - General Family Medicine 12/22/23 Stew Hankins III, MD Gastroenterology 10/25/10 Kirby Kaur MD [address] [place] [address] [address] [place] [address] Family Medicine 12/23/11 Nicholas Cristobal MD [address] [place] [address] [address] [place] [address] Gastroenterology 08/08/14 Charlie Ayala PA-C [address] [place] [address] [address] [place] [address] Physician Block Operator 02/05/15 Sully Castillo LPN 02/22/15 Florin Vicente MD [address] [facility] [address] [address] Pulmonary Disease 01/19/18 Sindi Mcfarland MA 09/22/18 Mao Powell MD [address] [place] [address] [place] [address] Orthopedic Surgery 05/22/21 Jeff Douglas MD [address] [place] [address] [place] [address] [address] Orthopedic Surgery 07/18/21 documented as of this encounter
--- OUTSIDE RECORDS SUMMARY | 2024-11-28 11:14 | XMS_ITS | Encounter Summary ---
Author Organization [facility] Address [address] [place] [address] Care Team Providers Care Weblogic Administrator Name Role Phone Abhi Ruiz MD Primary Care Provider Unavailabl e Rikki Painter DO Primary Care Provider [phone] Nhi AZUL MD, Morris Wilson Unavailable Haven vailable Louie Purdy MD Primary Care Provider [phone] Kirby Kaur MD Unavailable [phone] Maricruz Burris APRN Primary Care Provide r Nicholas Cristobal MD Unavailable Doctor, No Primary Care Provider UnavailCharlie Greenberg PA-C Unavailable [phone] Sully Castillo LPN Unavailable Unavailable Julio Samayoa APRN Primary Care Provider [phone] Julio Samayoa APRN Primary Care Provider [phone] Florin Vicente MD Unavailable Tiffanie Avery MD Primary Care Provider [phone] Sindi Mcfarland MA Unavailable Unavailable Mao Powell MD Unavailable [phone] Jeff Douglas MD Unavailable [phone] Tiffanie Avery MD Primary Care Provider Encounter Details Date Type Department Care Team (Late st Contact Info) Description 04/13/2003 Historical Encounter Global Julio Gutierres MD [address] [place] [address] Social History Tobacco Use Types Packs/Day Years [...] AM EDT Office Visit [facility] [address], [address] [place] [address] Marcos Santana APRN [address] [place] [address],[address] [place] [address] documented as of this encounter Visit Diagnoses Not on filedocumented in this encounter Care Teams Weblogic Administrator Relationship Specialty Start Date End Date Abhi Ruiz MD PCP - General 12/29/07 10/04/09 Rikki Painter DO [address] [place] [address] PCP - General Family Medicine 10/05/09 06/12/11 Louie Purdy MD [address] [place] [address] PCP - General Family Medicine 06/13/11 07/05/14 Maricruz Burris, SPACE PLANNER [address] [place] [address] PCP - General Nurse Practitioner 07/06/14 11/29/14 Otilia Abreu [place] PCP - General Family Medicine 11/30/14 04/25/15 Julio Samayoa APRN [address] [place] [address] PCP - General nurse practitioner adult care 04/26/15 01/19/17 Julio Samayoa APRN [address] [place] [address] PCP - General Family Practice 01/20/17 01/19/18 Tiffanie Avery MD [address] [place] [address] PCP - General Family Medicine 01/20/18 10/28/23 Tiffanie Avery MD [address] [place] [address] PCP - General Family Medicine 12/22/23 Stew Hankins III, MD Gastroenterology 10/25/10 Kirby Kaur MD [address] [place] [address] [place] [address] Family Medicine 12/23/11 Nicholas Cristobal MD [address] [place] [address] [address] [place] [address] Gastroenterology 08/08/14 Charlie Ayala, PA-C [address] [place] [address] [address] [place] [address] Physician Supervisor Sewer Maintenance 02/05/15 Sully Castillo LPN 02/22/15 [place] [address] [place] [address] [address] Pulmonary Disease 01/19/18 Sindi Mcfarland MA 09/22/18 Mao Powell MD [address] [place] [address] [address] Orthopedic Surgery 05/22/21 Jeff Douglas MD [address] [place] [address] Orthopedic Surgery 07/18/21 documented as of this encounter
--- OUTSIDE RECORDS SUMMARY | 2024-11-28 11:14 | XMS_ITS | Encounter Summary ---
Author Organization [facility] Address [address] [place] [address] Care Team Providers Care Psychopaedic Nurse Name Role Phone Abhi Ruiz MD Primary Care Provider Unavailabl e Rikki Paitner DO Primary Care Provider [phone] Nhi ZAUL MD, Morris Wilson Unavailable Haven vailable Louie Purdy MD Primary Care Provider [phone] Kirby Kaur MD Unavailable [phone] Maricruz Burris APRN Primary Care Provide r Nicholas Cristobal MD Unavailable Doctor, No Primary Care Provider UnavailCharlie Greenberg PA-C Unavailable [phone] Sully Castillo LPN Unavailable Unavailable Julio Samayoa APRN Primary Care Provider [phone] Julio Samayoa APRN Primary Care Provider [phone] Florin Vicente MD Unavailable Tiffanie Avery MD Primary Care Provider [phone] Sindi Mcfarland MA Unavailable Unavailable Mao Powell MD Unavailable [phone] Jeff Douglas MD Unavailable [phone] Tiffanie Avery MD Primary Care Provider Encounter Details Date Type Department Care Team (Late st Contact Info) Description 04/27/2007 Historical Encounter Global Abhi Ruiz MD Social [...] 9:30 AM EDT Office Visit [facility] [address], [address] [place] [address] Marcos Santana APRN [address] [place] [address],[address] [place], [place] [id number] documented as of this encounter Visit Diagnoses Not on filedocumented in this encounter Care Teams Psychopaedic Nurse Relationship Specialty Start Date End Date Abhi Ruiz MD PCP - General 12/29/07 10/04/09 Rikki Painter DO [address] [place] [address] PCP - General Family Medicine 10/05/09 06/12/11 Louie Purdy MD [address] [place] [address] PCP - General Family Medicine 06/13/11 07/05/14 Maricruz Burris APRN [address] [place] [address] PCP - General Nurse Practitioner 07/06/14 11/29/14 Otilia Abreu [place] PCP - General Family Medicine 11/30/14 04/25/15 Julio Samayoa APRN [address] [place] [address] PCP - General nurse practitioner adult care 04/26/15 01/19/17 Julio Samayoa APRN [address] [place], [place] [address] PCP - General Family Practice 01/20/17 01/19/18 Tiffanie Aveyr MD [address] [place] [address] PCP - General Family Medicine 01/20/18 10/28/23 Tiffanie Avery MD [address] [place] [address] PCP - General Family Medicine 12/22/23 Stew Hankins III, MD Gastroenterology 10/25/10 Kirby Kaur MD [address] [place] [address] Family Medicine 12/23/11 Nicholas Cristobal MD [address] [place] [address] Gastroenterology 08/08/14 Charlie Ayala, PAMindiC [address] [place] [address] Physician Asset Protection Professional 02/05/15 Sully Castillo LPN 02/22/15 Florin Vicente MD [address] [place] [address] [place] [address] Pulmonary Disease 01/19/18 Sindi Mcfarland MA 09/22/18 Mao Powell MD [address] [place] [address] Orthopedic Surgery 05/22/21 Jeff Douglas MD [address] [place] [address] [place] [address] Orthopedic Surgery 07/18/21 documented as of this encounter
--- OUTSIDE RECORDS SUMMARY | 2024-11-28 11:14 | XMS_ITS | Encounter Summary ---
Author Organization [facility] Address [address] [place] [address] Care Team Providers Care Tobacco Stripper Name Role Phone Abhi Ruiz MD Primary Care Provider Unavailabl e Rikki Painter DO Primary Care Provider [phone] Nhi AZUL MD, Morris Wilson Unavailable Haven vailable Louie Purdy MD Primary Care Provider [phone] Kirby Kaur MD Unavailable [phone] Maricruz Burris APRN Primary Care Provide r Nicholas Cristobal MD Unavailable Doctor, No Primary Care Provider UnavailCharlie Greenberg PA-C Unavailable [phone] Sully Castillo LPN Unavailable Unavailable Julio Samayoa APRN Primary Care Provider [phone] Julio Samayoa APRN Primary Care Provider [phone] Florin Vicente MD Unavailable Tiffanie Avery MD Primary Care Provider [phone] Sindi Mcfarland MA Unavailable Unavailable Mao Powell MD Unavailable [phone] Jeff Douglas MD Unavailable [phone] Tiffanie Avery MD Primary Care Provider Encounter Details Date Type Department Care Team (Late st Contact Info) Description 06/02/2003 Historical Encounter Global Blu Ruiz Social History Tobacco Use Types Packs/Day Years Used Date Smoking Tobacco: Never Assessed Sex and Gender Information Value Date Recorded Sex Assigned at Not on file Legal Sex Male 9:36 PM EST Gender Identity Not on file Sexual Orientation Not on file documented as of this encounter Plan of Treatment Upcoming Encounters Date Type Department Care Team ([facility] st Contact Info) Description 12/05/2024 9:30 AM EDT Office Visit [facility] [address], [address] [place] [address] Marcos Santana APRN [address] [place] [address],[address] [place], [place] [id number] documented as of this encounter Visit Diagnoses Not on filedocumented in this encounter Care Teams Tobacco Stripper Relationship Specialty Start Date End Date Abhi Ruiz MD PCP - General 12/29/07 10/04/09 Rikki Painter DO [address] [place] [address] PCP - General Family Medicine 10/05/09 06/12/11 Louie Purdy MD [address] [place] [address] PCP - General Family Medicine 06/13/11 07/05/14 Maricruz Burris DRY STARCH SUPERVISOR [address] [place] [address] PCP - General Nurse Practitioner 07/06/14 11/29/14 Otilia Abreu [place] PCP - General Family Medicine 11/30/14 04/25/15 Julio Samayoa APRN [address] [place] [address] PCP - General nurse practitioner adult care 04/26/15 01/19/17 Julio Samayoa, YANNICK [address] [place] [address] PCP - General Family Practice 01/20/17 01/19/18 Tiffanie Avery MD [address] [place] [address] PCP - General Family Medicine 01/20/18 10/28/23 Tiffanie Avery MD [address] [place] [address] PCP - General Family Medicine 12/22/23 Stew Hankins III, MD Gastroenterology 10/25/10 Kirby Kaur MD [address] [place] [address] Family Medicine 12/23/11 Nicholas Cristobal MD [address] [place] [address] Gastroenterology 08/08/14 Charlie Ayala, PA-C [address] [place] [address] Physician Industrial Truck Operator 02/05/15 Sully Castillo LPN 02/22/15 Florin Vicente MD [address] [place] [address] [place] [address] Pulmonary Disease 01/19/18 Sindi Mcfarland MA 09/22/18 Mao Powell MD [address] [place] [address] Orthopedic Surgery 05/22/21 Jeff Douglas MD [address] [place], [place] [address] Orthopedic Surgery 07/18/21 documented as of this encounter
--- OUTSIDE RECORDS SUMMARY | 2024-11-28 11:14 | XMS_ITS | Encounter Summary ---
Author Organization [facility] Address [address] [place] [address] Care Team Providers Care Numerical Control Drill Press Operator Name Role Phone Nhi AZUL MD, Morris Wilson Unavailable Haven Kirby Bustamante MD Unavailable Nicholas Cristobal MD Unavailable Doctor, No Primary Care Provider UnavailCharlie Greenberg PA-C Unavailable Sully Castillo LPN Unavailable Unavailable Julio Samayoa APRN Primary Care Provider [phone] Julio Samayoa APRN Primary Care Provider Florin Vicente MD Unavailable Tiffanie Avery MD Primary Care Provider [phone] Sindi Mcfarland MA Unavailable Unavailable Mao Powell MD Unavailable [phone] Jeff Douglas MD Unavailable [phone] Tiffanie Avery MD Primary Care Provider [phone] Encounter Details Date Type Department Care Team (Late st Contact Info) Description 03/16/2015 Orders Only [facility] [address] [place] [address] Fatemeh Le LPN Social History Tobacco Use Types Packs/Day [...] 9:30 AM EDT Office Visit [facility] [address] [place] [address] [address] , [address] [place] [address] Marcos Santana APRN [address] [place] [address],[address] [place], [place] [address] documented as of this encounter Visit Diagnoses Not on filedocumented in this encounter Care Teams Numerical Control Drill Press Operator Relationship Specialty Start Date End Date [facility] PCP - General Family Medicine 11/30/14 04/25/15 Julio Samayoa APRN [address] [place] [address] PCP - General nurse practitioner adult care 04/26/15 01/19/17 Julio Samayoa APRN [address] [place] [address] PCP - General Family Practice 01/20/17 01/19/18 Tiffanie Avery MD [address] [place] [address] PCP - General Family Medicine 01/20/18 10/28/23 Tiffanie Avery MD [address] [place] [address] PCP - General Family Medicine 12/22/23 Stew Hankins III, MD Gastroenterology 10/25/10 Kirby Kaur MD [address] [place] [address] [address] [place] [address] Family Medicine 12/23/11 Nicholas Cristobal MD [address] [place] [address] Gastroenterology 08/08/14 Charlie Ayala PA-C [address] [place] [address] Physician Word Processor Operator 02/05/15 Sully Castillo LPN 02/22/15 [place] [address] [place] [address] [place] [address] Pulmonary Disease 01/19/18 Sindi Mcfarland MA 09/22/18 Mao Powell MD [address] [place] [address] Orthopedic Surgery 05/22/21 Jeff Douglas MD [address] [place] [address] Orthopedic Surgery 07/18/21 documented as of this encounter
--- OUTSIDE RECORDS SUMMARY | 2024-11-28 11:14 | XMS_ITS | Encounter Summary ---
Author Organization [facility] Address [address] [place] [address] Care Team Providers Care Radio Station Audio Engineer Name Role Phone Nhi AZUL MD, Morris Wilson Unavailable Haven Kirby Bustamante MD Unavailable Nicholas Cristobal MD Unavailable Doctor, No Primary Care Provider UnavailCharlie Greenberg PA-C Unavailable Sully Castillo LPN Unavailable Unavailable Julio Samayoa APRN Primary Care Provider [phone] Julio Samayoa APRN Primary Care Provider Florin Vicente MD Unavailable Tiffanie Avery MD Primary Care Provider [phone] Sindi Mcfarland MA Unavailable Unavailable Mao Powell MD Unavailable [phone] Jeff Douglas MD Unavailable [phone] Tiffanie Avery MD Primary Care Provider [phone] Reason for Visit * Reason Onset Date Comments Results - Test 02/22/2015 Encounter Details Date Type Department Care Team (Late st Contact Info) Description 02/22/2015 Telephone [facility] [address] [place] [address] [address] [place] [address] Sully Castillo LPN Results - Test Social History Tobacco Use Types Packs/Day Years [...] encounter Miscellaneous Notes * Telephone Encounter - Sully Castillo LPN - 02/22/2015 1:06 PM EDT Left voice message regarding h-pylori . documented in this encounter Plan of Treatment Upcoming Encounters Date Type Department Care Team ([facility] Contact Info) Description 12/05/2024 9:30 AM EDT Office Visit [facility] [address], [address] [place] [address] Marcos Santana APRN [address] [place], [place] [address] [place], [place] [address] documented as of this encounter Visit Diagnoses Not on filedocumented in this encounter Care Teams Radio Station Audio Engineer Relationship Specialty Start Date End Date Doctor, SHADI Loomis PCP - General Family Medicine 11/30/14 04/25/15 Julio Samayoa APRN [address] [place] [address] PCP - General nurse practitioner adult care 04/26/15 01/19/17 Julio Samayoa APRN [address] [place] [address] PCP - General Family Practice 01/20/17 01/19/18 Tiffanie Avery MD [address] [place] [address] [place] [address] PCP - General Family Medicine 01/20/18 10/28/23 Tiffanie Avery MD [address] [place] [address] [place] [address] PCP - General Family Medicine 12/22/23 Stew Hankins III, MD Gastroenterology 10/25/10 Kirby Kaur MD [address] [place] [address] [address] Family Medicine 12/23/11 Nicholas Cristobal MD [address] [place] [address] [address] [place] [address] Gastroenterology 08/08/14 Charlie Ayala, TORIC [address] [place] [address] [address] [place] [address] Physician Soundscriber Mechanic 02/05/15 Sully Castillo LPN 02/22/15 [place] [address] [place] [address] [address] Pulmonary Disease 01/19/18 Sindi Mcfarland MA 09/22/18 Mao Powell MD [address] [place] [address] [place] [address] Orthopedic Surgery 05/22/21 Jeff Douglas MD [address] [place] [address] [address] Orthopedic Surgery 07/18/21 documented as of this encounter
--- OUTSIDE RECORDS SUMMARY | 2024-11-28 11:14 | XMS_ITS | Encounter Summary ---
Author Organization [facility] Address [address] [place] [address] Care Team Providers Care Tongue Carrier Name Role Phone Abhi Ruiz MD Primary Care Provider Unavailabl e Rikki Painter DO Primary Care Provider [phone] Nhi AZUL MD, Morris Wilson Unavailable Ahven vailable Louie Purdy MD Primary Care Provider [phone] Kirby Kaur MD Unavailable [phone] Maricruz Burris APRN Primary Care Provide r Nicholas Cristobal MD Unavailable Doctor, No Primary Care Provider UnavailCharlie Greenberg PA-C Unavailable [phone] Sully Castillo LPN Unavailable Unavailable Julio Samayoa APRN Primary Care Provider [phone] Julio Samayoa APRN Primary Care Provider [phone] Florin Vicente MD Unavailable Tiffanie Avery MD Primary Care Provider [phone] Sindi Mcfarland MA Unavailable Unavailable Mao Powell MD Unavailable [phone] Jeff Douglas MD Unavailable [phone] Tiffanei Avery MD Primary Care Provider [phone] Encounter Details Date Type Department Care Team (Late st Contact Info) Description 04/21/2007 Historical Encounter Global Abhi Ruiz MD Social [...] 9:30 AM EDT Office Visit [facility] [address], [address] [place] [address] Marcos Santana APRN [address] [place] [address],[address] [place], [place] [address] documented as of this encounter Visit Diagnoses Not on filedocumented in this encounter Care Teams Tongue Carrier Relationship Specialty Start Date End Date Abhi Ruiz MD PCP - General 12/29/07 10/04/09 Rikki Painter DO [address] [place] [address] PCP - General Family Medicine 10/05/09 06/12/11 Louie Purdy MD [address] [place] [address] PCP - General Family Medicine 06/13/11 07/05/14 Maricruz Burris APRN [address] [place] [address] PCP - General Nurse Practitioner 07/06/14 11/29/14 Otilia Abreu [place] PCP - General Family Medicine 11/30/14 04/25/15 Julio Samayoa APRN [address] [place] [address] PCP - General nurse practitioner adult care 04/26/15 01/19/17 Julio Samayoa APRN [address] [place], [place] [address] PCP - General Family Practice 01/20/17 01/19/18 Tiffanie Avery MD [address] [place] [address] PCP - General Family Medicine 01/20/18 10/28/23 Tiffanie Avery MD [address] [place] [address] PCP - General Family Medicine 12/22/23 Stew Hankins III, MD Gastroenterology 10/25/10 Kirby Kaur MD [address] [place] [address] Family Medicine 12/23/11 Nicholas Cristobal MD [address] [place] [address] Gastroenterology 08/08/14 Charlie Ayala, PAMindiC [address] [place] [address] Physician Relief Manager 02/05/15 Sully Castillo LPN 02/22/15 Florin Vicente MD [address] [place] [address] [place] [address] Pulmonary Disease 01/19/18 Sindi Mcfarland MA 09/22/18 Mao Powell MD [address] [place] [address] Orthopedic Surgery 05/22/21 Jeff Douglas MD [address] [place] [address] [place] [address] Orthopedic Surgery 07/18/21 documented as of this encounter
--- OUTSIDE RECORDS SUMMARY | 2024-11-28 11:14 | XMS_ITS | Encounter Summary ---
Author Organization [facility] Address [address] [place] [address] Care Team Providers Care Firer Diesel Locomotive Name Role Phone Nhi AZUL MD, Morris Wilson Unavailable Haven Kirby Bustamante MD Unavailable [phone] Nicholas Cristobal MD Unavailable Doctor, No Primary Care Provider UnavailCharlie Greenberg PA-C Unavailable Sully Castillo LPN Unavailable Unavailable Julio Samayoa APRN Primary Care Provider Julio Samayoa APRN Primary Care Provider Florin Vicente MD Unavailable Tiffanie Avery MD Primary Care Provider Sindi Mcfarland MA Unavailable Unavailable Mao Powell MD Unavailable [phone] Jeff Douglas MD Unavailable [phone] Tiffanie Avery MD Primary Care Provider [phone] Encounter Details Date Type Department Care Team (Late st Contact Info) Description 02/27/2015 Telephone [facility] [address] [place] [address] [address] [place] [address] Charlie Ayala PA-C [address] [place], [place] [address] Social History Tobacco Use Types Packs/Day Years [...] Telephone Encounter - Sully Castillo LPN - 02/28/2015 3:45 PM EDT Spoke with patient concerning h-pylori.Patient does not want to finish pylori.Instructed patient tofinish full course of amox and biaxin. He verbalized understanding. * Telephone Encounter - Sully Castillo LPN - 02/27/2015 3:20 PM EDT Left voice message. * Telephone Encounter - An Fisher - 02/27/2015 10:36 AM EDT Please call concerning antibiotics. documented in this encounter Plan of Treatment Upcoming Encounters Date Type Department Care Team (Late st Contact Info) Description 12/05/2024 9:30 AM EDT Office Visit [facility] [address], [address] [place] [address] Marcos Santana APRN [address] [place] [address],[address] [place] [address] documented as of this encounter Visit Diagnoses Not on filedocumented in this encounter Care Teams Firer Diesel Locomotive Relationship Specialty Start Date End Date Doctor, SHADI Loomis PCP - General Family Medicine 11/30/14 04/25/15 Julio Samayoa APRN [address] [place], [place] [address] PCP - General nurse practitioner adult care 04/26/15 01/19/17 Julio Samayoa APRN [address] [place], [place] [address] PCP - General Family Practice 01/20/17 01/19/18 Tiffanie Avery MD [address] [place] [address] PCP - General Family Medicine 01/20/18 10/28/23 Tiffanie Avery MD [address] [place] [address] PCP - General Family Medicine 12/22/23 Stew Hankins III, MD Gastroenterology 10/25/10 Kirby Kaur MD [address] [place] [address] [address] [place] [address] Family Medicine 12/23/11 Nicholas Cristobal MD 613 [address] [address] [place] [address] Gastroenterology 08/08/14 Charlie Ayala PA-C 613 [address] [address] [place] [address] Physician Middle School Teacher 02/05/15 Sully Castillo LPN 02/22/15 [place] [address] [place] [address] [address] [place] [address] Pulmonary Disease 01/19/18 Sindi Mcfarland MA 09/22/18 Mao Powell MD [address] [place] [address] Orthopedic Surgery 05/22/21 Jeff Douglas MD [address] [place] [address] Orthopedic Surgery 07/18/21 documented as of this encounter
--- OUTSIDE RECORDS SUMMARY | 2024-11-28 11:14 | XMS_ITS | Encounter Summary ---
Author Organization [facility] Address [address] [place] [address] Care Team Providers Care Manager Sql Name Role Phone Nhi AZUL MD, Morris Wilson Unavailable Haven Kirby Bustamante MD Unavailable [phone] Nicholas Cristobal MD Unavailable Doctor, No Primary Care Provider UnavailCharlie Greenberg PA-C Unavailable [phone] Sully Castillo LPN Unavailable Unavailable Julio Samayoa APRN Primary Care Provider [phone] Julio Samayoa APRN Primary Care Provider Florin Vicente MD Unavailable Tiffanie Avery MD Primary Care Provider [phone] Sindi Mcfarland MA Unavailable Unavailable Mao Powell MD Unavailable [phone] Jeff Douglas MD Unavailable [phone] Tiffanie Avery MD Primary Care Provider [phone] Reason for Visit * Reason Onset Date Comments Medication Clarification 03/15/2015 NEXT O/ V 03/19/15 Encounter Details Date Type Department Care Team (Late st Contact Info) Description 03/15/2015 Telephone [facility] [address] [place] [address] [address] [place] [address] Nicholas Cristobal MD [address] [place], [place] [id number] Medication Clarification (NEXT O/V 03/19/15) Social History Tobacco Use Types Packs/Day Years [...] Telephone Encounter - Sully Castillo LPN - 03/15/2015 1:28 PM EDT Spoke with patient he verbalized understanding. * Telephone Encounter - Sirisha Urias - 03/15/2015 8:52 AM EDT Patient is calling about a pill cam test does he need to still have this done? He is also wanting to know about a stool sample when he gets his labs done for this office visit. Can you please advise.Thank you. documented in this encounter Plan of Treatment Upcoming Encounters Date Type Department Care Team (Late st Contact Info) Description 12/05/2024 9:30 AM EDT Office Visit [facility] [address], [address] [place] [address] Marcos Santana APRN [address] [place], [place] [address] [address] [place] [address] documented as of this encounter Visit Diagnoses Diagnosis Diarrhea- Primary documented in this encounter Care Teams Manager Sql Relationship Specialty Start Date End Date DoctorOtilia [place] PCP - General Family Medicine 11/30/14 04/25/15 Julio Samayoa APRN [address] [place] [address] PCP - General nurse practitioner adult care 04/26/15 01/19/17 Julio Samayoa APRN [address] [place] [id number] PCP - General Family Practice 01/20/17 01/19/18 Tiffanie Avery MD [address] [place] [address] PCP - General Family Medicine 01/20/18 10/28/23 Tiffanie Avery MD [address] [place] [address] PCP - General Family Medicine 12/22/23 Stew Hankins III, MD Gastroenterology 10/25/10 Kirby Kaur MD [address] [place] [address] Family Medicine 12/23/11 Nicholas Cristobal MD [address] [place] [address] Gastroenterology 08/08/14 Charlie Ayala, PA-C [address] [place] [address] Physician Solvent Plant Operator 02/05/15 Sully Castillo LPN 02/22/15 Florin Vicente MD [address] [place] [address] [place] [address] Pulmonary Disease 01/19/18 Sindi Mcfarland MA 09/22/18 Mao Powell MD [address] [place] [address] Orthopedic Surgery 05/22/21 Jeff Douglas MD [address] [place] [address] [address] Orthopedic Surgery 07/18/21 documented as of this encounter
--- OUTSIDE RECORDS SUMMARY | 2024-11-28 11:14 | XMS_ITS | Encounter Summary ---
Author Organization [facility] Address [address] [place] [address] Care Team Providers Care Windows Server Engineer Name Role Phone Abhi Ruiz MD Primary Care Provider Unavailabl e Rikki Painter DO Primary Care Provider [phone] Nhi AZUL MD, Morris Wilson Unavailable Haven vailable Louie Purdy MD Primary Care Provider [phone] Kirby Kaur MD Unavailable [phone] Maricruz Burris APRN Primary Care Provide r Nicholas Cristobal MD Unavailable Doctor, No Primary Care Provider UnavailCharlie Greenberg PA-C Unavailable [phone] Sully Castillo LPN Unavailable Unavailable Julio Samayoa APRN Primary Care Provider [phone] Julio Samayoa APRN Primary Care Provider [phone] lForin Vicente MD Unavailable Tiffanie Avery MD Primary Care Provider [phone] Sindi Mcfarland MA Unavailable Unavailable Mao Powell MD Unavailable [phone] Jeff Douglas MD Unavailable [phone] Tiffanie Avery MD Primary Care Provider Encounter Details Date Type Department Care Team (Late st Contact Info) Description 02/15/2003 Historical Encounter Global Blu Ruiz Social History Tobacco Use Types Packs/Day Years Used Date Smoking Tobacco: Never Assessed Sex and Gender Information Value Date Recorded Sex Assigned at Not on file Legal Sex Male 9:36 PM EST Gender Identity Not on file Sexual Orientation Not on file documented as of this encounter Plan of Treatment Upcoming Encounters Date Type Department Care Team ([facility] st Contact Info) Description 12/05/2024 9:30 AM EDT Office Visit [facility] [address], [address] [place] [address] Marcos Santana APRN [address] [place] [address],[address] [place], [place] [id number] documented as of this encounter Visit Diagnoses Not on filedocumented in this encounter Care Teams Windows Server Engineer Relationship Specialty Start Date End Date Abhi Ruiz MD PCP - General 12/29/07 10/04/09 Rikki Painter DO [address] [place] [address] PCP - General Family Medicine 10/05/09 06/12/11 Louie Purdy MD [address] [place] [address] PCP - General Family Medicine 06/13/11 07/05/14 Maricruz Burris STRIPPING AND BOOKING MACHINE OPERATOR [address] [place] [address] PCP - General Nurse Practitioner 07/06/14 11/29/14 Otilia Abreu [place] PCP - General Family Medicine 11/30/14 04/25/15 Julio Samayoa APRN [address] [place] [address] PCP - General nurse practitioner adult care 04/26/15 01/19/17 Julio Samayoa, YANNICK [address] [place] [address] PCP - General Family Practice 01/20/17 01/19/18 Tiffanie Avery MD [address] [place] [address] PCP - General Family Medicine 01/20/18 10/28/23 Tiffanie Avery MD [address] [place] [address] PCP - General Family Medicine 12/22/23 Stew Hankins III, MD Gastroenterology 10/25/10 Kirby Kaur MD [address] [place] [address] Family Medicine 12/23/11 Nicholas Cristobal MD [address] [place] [address] Gastroenterology 08/08/14 Charlie Ayala, PA-C [address] [place] [address] Physician O And M Supervisor 02/05/15 Sully Castillo LPN 02/22/15 Florin Vicente MD [address] [place] [address] [place] [address] Pulmonary Disease 01/19/18 Sindi Mcfarland MA 09/22/18 Mao Powell MD [address] [place] [address] Orthopedic Surgery 05/22/21 Jeff Douglas MD [address] [place], [place] [address] Orthopedic Surgery 07/18/21 documented as of this encounter
--- OUTSIDE RECORDS SUMMARY | 2024-11-28 11:14 | XMS_ITS | Encounter Summary ---
Author Organization [facility] Address [address] [place] [address] Care Team Providers Care Machine Heddle Cleaner Name Role Phone Abhi Ruiz MD Primary Care Provider Unavailabl e Rikki Painter DO Primary Care Provider [phone] Nhi AZUL MD, Morris Wilson Unavailable Haven vailable Louie Purdy MD Primary Care Provider [phone] Kirby Kaur MD Unavailable [phone] Maricruz Burris APRN Primary Care Provide r Nicholas Cristobal MD Unavailable Doctor, No Primary Care Provider UnavailCharlie Greenberg PA-C Unavailable [phone] Sully Castillo LPN Unavailable Unavailable Julio Samayoa APRN Primary Care Provider [phone] Julio Samayoa APRN Primary Care Provider [phone] Florin Vicente MD Unavailable Tiffanie Avery MD Primary Care Provider [phone] Sindi Mcfarland MA Unavailable Unavailable Mao Powell MD Unavailable [phone] Jeff Douglas MD Unavailable [phone] Tiffanie Avery MD Primary Care Provider Encounter Details Date Type Department Care Team (Late st Contact Info) Description 03/21/2003 Historical Encounter Global Blu Ruiz Social History Tobacco Use Types Packs/Day Years Used Date Smoking Tobacco: Never Assessed Sex and Gender Information Value Date Recorded Sex Assigned at Not on file Legal Sex Male 9:36 PM EST Gender Identity Not on file Sexual Orientation Not on file documented as of this encounter Plan of Treatment Upcoming Encounters Date Type Department Care Team ([facility] st Contact Info) Description 12/05/2024 9:30 AM EDT Office Visit [facility] [address], [address] [place] [address] Marcos Santana APRN [address] [place] [address],[address] [place], [place] [id number] documented as of this encounter Visit Diagnoses Not on filedocumented in this encounter Care Teams Machine Heddle Cleaner Relationship Specialty Start Date End Date Abhi Ruiz MD PCP - General 12/29/07 10/04/09 Rikki Painter DO [address] [place] [address] PCP - General Family Medicine 10/05/09 06/12/11 Louie Purdy MD [address] [place] [address] PCP - General Family Medicine 06/13/11 07/05/14 Maricruz Burris TRANSPORT CONDUCTOR [address] [place] [address] PCP - General Nurse Practitioner 07/06/14 11/29/14 Otilia Arbeu [place] PCP - General Family Medicine 11/30/14 04/25/15 Julio Samayoa APRN [address] [place] [address] PCP - General nurse practitioner adult care 04/26/15 01/19/17 Julio Samayoa, YANNICK [address] [place] [address] PCP - General Family Practice 01/20/17 01/19/18 Tiffanie Avery MD [address] [place] [address] PCP - General Family Medicine 01/20/18 10/28/23 Tiffanie Avery MD [address] [place] [address] PCP - General Family Medicine 12/22/23 Stew Hankins III, MD Gastroenterology 10/25/10 Kirby Kaur MD [address] [place] [address] Family Medicine 12/23/11 Nicholas Cristobal MD [address] [place] [address] Gastroenterology 08/08/14 Charlie Ayala, PA-C [address] [place] [address] Physician Secondary Connector Armature 02/05/15 Sully Castillo LPN 02/22/15 Florin Vicente MD [address] [place] [address] [place] [address] Pulmonary Disease 01/19/18 Sindi Mcfarland MA 09/22/18 Mao Powell MD [address] [place] [address] Orthopedic Surgery 05/22/21 Jeff Douglas MD [address] [place], [place] [address] Orthopedic Surgery 07/18/21 documented as of this encounter
--- OUTSIDE RECORDS SUMMARY | 2024-11-28 11:14 | XMS_ITS | Encounter Summary ---
Author Organization [facility] Address [address] [place] [address] Care Team Providers Care Psych Nurse Name Role Phone Abhi Ruiz MD Primary Care Provider Unavailabl e Rikki Painter DO Primary Care Provider [phone] Nhi AZUL MD, Morris Wilson Unavailable Haven vailable Louie Purdy MD Primary Care Provider [phone] Kirby Kaur MD Unavailable [phone] Maricruz Burris APRN Primary Care Provide r Nicholas Cristobal MD Unavailable Doctor, No Primary Care Provider UnavailCharlie Greenberg PA-C Unavailable [phone] Sully Castillo LPN Unavailable Unavailable Julio Samayoa APRN Primary Care Provider [phone] Julio Samayoa APRN Primary Care Provider [phone] Florin Vicente MD Unavailable Tiffanie Avery MD Primary Care Provider [phone] Sindi Mcfarland MA Unavailable Unavailable Mao Powell MD Unavailable [phone] Jeff Douglas MD Unavailable [phone] Tiffanie Avery MD Primary Care Provider [phone] Encounter Details Date Type Department Care Team (Late st Contact Info) Description 06/24/2003 Historical Encounter Global Blu Ruiz Social History Tobacco Use Types Packs/Day Years Used Date Smoking Tobacco: Never Assessed Sex and Gender Information Value Date Recorded Sex Assigned at Not on file Legal Sex Male 9:36 PM EST Gender Identity Not on file Sexual Orientation Not on file documented as of this encounter Plan of Treatment Upcoming Encounters Date Type Department Care Team ([facility] st Contact Info) Description 12/05/2024 9:30 AM EDT Office Visit [facility] [address], [address] [place] [address] Marcos Santana APRN [address] [place] [address],[address] [place], [place] [address] documented as of this encounter Visit Diagnoses Not on filedocumented in this encounter Care Teams Psych Nurse Relationship Specialty Start Date End Date Abih Ruiz MD PCP - General 12/29/07 10/04/09 Rikki Painter DO [address] [place] [address] PCP - General Family Medicine 10/05/09 06/12/11 Louie Purdy MD [address] [place] [address] PCP - General Family Medicine 06/13/11 07/05/14 Maricruz Burris SERVICE DELIVERY CONSULTANT [address] [place] [address] PCP - General Nurse Practitioner 07/06/14 11/29/14 Otilia Abreu [place] PCP - General Family Medicine 11/30/14 04/25/15 Julio Samayoa APRN [address] [place] [address] PCP - General nurse practitioner adult care 04/26/15 01/19/17 Julio Samayoa, YANNICK [address] [place] [address] PCP - General Family Practice 01/20/17 01/19/18 Tiffanie Avery MD [address] [place] [address] PCP - General Family Medicine 01/20/18 10/28/23 Tiffanie Avery MD [address] [place] [address] PCP - General Family Medicine 12/22/23 Stew Hankins III, MD Gastroenterology 10/25/10 Kirby Kaur MD [address] [place] [address] Family Medicine 12/23/11 Nicholas Cristobal MD [address] [place] [address] Gastroenterology 08/08/14 Charlie Ayala, PA-C [address] [place] [address] Physician Highwall Drill Operator 02/05/15 Sully Castillo LPN 02/22/15 lForin Vicente MD [address] [place] [address] [place] [address] Pulmonary Disease 01/19/18 Sindi Mcfarland MA 09/22/18 Mao Powell MD [address] [place] [address] Orthopedic Surgery 05/22/21 Jeff Douglas MD [address] [place], [place] [address] Orthopedic Surgery 07/18/21 documented as of this encounter
--- OUTSIDE RECORDS SUMMARY | 2024-11-28 11:14 | XMS_ITS | Encounter Summary ---
Author Organization [facility] Address [address] [place] [address] Care Team Providers Care Radiologic Technology Teacher Name Role Phone Rikki Painter DO Primary Care Provider [phone] Nhi AZUL MD, Morris Wilson Unavailable Haven Louie Pace MD Primary Care Provider [phone] Kirby Kaur MD Unavailable [phone] Maricruz Burris APRN Primary Care Provide r Nicholas Cristobal MD Unavailable Doctor, No Primary Care Provider UnavailCharlie Greenberg PA-C Unavailable [phone] Sully Castillo LPN Unavailable Unavailable Julio Samayoa APRN Primary Care Provider [phone] Julio Samayoa APRN Primary Care Provider [phone] Florin Vicente MD Unavailable Tiffanie Avery MD Primary Care Provider [phone] Sindi Mcfarland MA Unavailable Unavailable Mao Powell MD Unavailable [phone] Jeff Douglas MD Unavailable [phone] Tiffanie Avery MD Primary Care Provider [phone] Reason for Visit * Reason Onset Date Comments Results - Lab 12/24/2009 Encounter Details Date Type Department Care Team (Late st Contact Info) Description 12/24/2009 Telephone [facility] [address] [place] [id number] Rikki Painter DO [address] [place] [address] Results - Lab Social History [...] encounter Miscellaneous Notes * Telephone Encounter - Lilia Reddy LPN - 01/03/2010 10:53 AM EDT Pt notified. * Telephone Encounter - Sybil Cesar - 01/02/2010 1:42 PM EDT Please call patient with lab results as soon as possible at [phone],Thank you documented in this encounter Plan of Treatment Upcoming Encounters Date Type Department Care Team (Late st Contact Info) Description 12/05/2024 9:30 AM EDT Office Visit [facility] [address] [place] [address] Marcos Santana APRN [address] [place] [address],[address] [place] [address] documented as of this encounter Visit Diagnoses Not on filedocumented in this encounter Care Teams Radiologic Technology Teacher Relationship Specialty Start Date End Date Rikki Painter DO [address] [place] [address] PCP - General Family Medicine 10/05/09 06/12/11 Louie Purdy MD [address] [place] [address] PCP - General Family Medicine 06/13/11 07/05/14 Maricruz Burris APRN [address] [place] [address] PCP - General Nurse Practitioner 07/06/14 11/29/14 [facility] PCP - General Family Medicine 11/30/14 04/25/15 Julio Samayoa APRN [address] [place] [address] PCP - General nurse practitioner adult care 04/26/15 01/19/17 Julio Samayoa APRN [address] [place] [address] PCP - General Family Practice 01/20/17 01/19/18 Tiffanie Avery MD [address] [place] [address] PCP - General Family Medicine 01/20/18 10/28/23 Tiffanie Avery MD [address] [place] [address] PCP - General Family Medicine 12/22/23 Stew Hankins III, MD Gastroenterology 10/25/10 Kirby Kaur MD [address] [place] [address] Family Medicine 12/23/11 Nicholas Cristobal MD [address] [place] [address] Gastroenterology 08/08/14 Charlie Ayala PA-C [address] [place] [address] [address] [place] [address] Physician Cab Station Attendant 02/05/15 Sully Castillo LPN 02/22/15 Florin Vicente MD [address] [facility] [place] [address] Pulmonary Disease 01/19/18 Sindi Mcfarland MA 09/22/18 Mao Powell MD [address] [place] [address] [place] [address] Orthopedic Surgery 05/22/21 Jeff Douglas MD [address] [place] [address] [place] [address] Orthopedic Surgery 07/18/21 documented as of this encounter
--- OUTSIDE RECORDS SUMMARY | 2024-11-28 11:14 | XMS_ITS | Encounter Summary ---
Author Organization [facility] Address [address] [place] [address] Care Team Providers Care Physical Fitness Teacher Name Role Phone Abhi Ruiz MD Primary Care Provider Unavailabl e Rikki Painter DO Primary Care Provider [phone] Nhi AZUL MD, Morris Wilson Unavailable Haven vailable Louie Purdy MD Primary Care Provider [phone] Kirby Kaur MD Unavailable [phone] Maricruz Burris APRN Primary Care Provide r Nicholas Cristobal MD Unavailable Doctor, No Primary Care Provider UnavailCharlie Greenberg PA-C Unavailable [phone] Sully Castillo LPN Unavailable Unavailable Julio Samayoa APRN Primary Care Provider [phone] Julio Samayoa APRN Primary Care Provider [phone] Florin Vicente MD Unavailable Tiffanie Avery MD Primary Care Provider [phone] Sindi Mcfarland MA Unavailable Unavailable Mao Powell MD Unavailable [phone] Jeff Douglas MD Unavailable [phone] Tiffanie Avery MD Primary Care Provider Encounter Details Date Type Department Care Team (Late st Contact Info) Description 03/09/2003 Historical Encounter Global Julio Gutierres MD [address] [place] [address] Social History Tobacco Use Types Packs/Day Years [...] 9:30 AM EDT Office Visit [facility] [address], [address] [place] [address] Marcos Santana APRN [address] [place] [address],[address] [place] [address] documented as of this encounter Visit Diagnoses Not on filedocumented in this encounter Care Teams Physical Fitness Teacher Relationship Specialty Start Date End Date Abhi Ruiz MD PCP - General 12/29/07 10/04/09 Rikki Painter DO [address] [place] [address] PCP - General Family Medicine 10/05/09 06/12/11 Louie Purdy MD [address] [place] [address] PCP - General Family Medicine 06/13/11 07/05/14 Maricruz Burris, AMMONIUM HYDROXIDE OPERATOR [address] [place] [address] PCP - General Nurse Practitioner 07/06/14 11/29/14 Otilia Abreu [place] PCP - General Family Medicine 11/30/14 04/25/15 Julio Samayoa APRN [address] [place] [address] PCP - General nurse practitioner adult care 04/26/15 01/19/17 Julio Samayoa APRN [address] [place] [address] PCP - General Family Practice 01/20/17 01/19/18 Tiffanie Avery MD [address] [place] [address] PCP - General Family Medicine 01/20/18 10/28/23 Tiffanie Avery MD [address] [place] [address] PCP - General Family Medicine 12/22/23 Stew Hankins III, MD Gastroenterology 10/25/10 Kirby Kaur MD [address] [place] [address] [place] [address] Family Medicine 12/23/11 Nicholas Cristobal MD [address] [place] [address] [address] [place] [address] Gastroenterology 08/08/14 Charlie Ayala, PA-C [address] [place] [address] [address] [place] [address] Physician Maintenance And Repair Worker 02/05/15 Sully Castillo LPN 02/22/15 [place] [address] [place] [address] [address] Pulmonary Disease 01/19/18 Sindi Mcfarland MA 09/22/18 Mao Powell MD [address] [place] [address] [address] Orthopedic Surgery 05/22/21 Jeff Douglas MD [address] [place] [address] Orthopedic Surgery 07/18/21 documented as of this encounter
--- OUTSIDE RECORDS SUMMARY | 2024-11-28 11:14 | XMS_ITS | Encounter Summary ---
Author Organization [facility] Address [address] [place] [address] Care Team Providers Care Corner Block Cutter Name Role Phone Nhi AZUL MD, Stew Gonzales Unavailable Haven Kirby Bustamante MD Unavailable Nicholas Cristobal MD Unavailable Charlie Ayala PA-C Unavailable Sully Castillo LPN Unavailable Unavailable Florin Vicente MD Unavailable Tiffanie Avery MD Primary Care Provider [phone] Sindi Mcfarland MA Unavailable Unavailable Mao Powell MD Unavailable Jeff Douglas MD Unavailable Tiffanie Avery MD Primary Care Provider [phone] Reason for Visit * Reason Onset Date Comments Other 07/19/2021 new medication Encounter Details Date Type Department Care Team (Late st Contact Info) Description 07/19/2021 Telephone [facility] [address] [place] [address] [place] [address] Tiffanie Avery MD [address] [place] [address] Other (new medication) Social History Tobacco Use Types Packs/Day Years [...] have Coronavirus / COVID-19? No / Unsure 07/22/2021 2:42 PM EST documented as of this encounter Miscellaneous Notes * Telephone Encounter - Tiffanie Avery MD - 07/22/2021 3:08 PM EST Needs apt to discuss * Telephone Encounter - Yvon De Jesus - 07/19/2021 10:33 AM EST Patient called in wanting to have Ambien 10 mg at bedtime prescribed by Dr. Avery Please Advise documented in this encounter Plan of Treatment Upcoming Encounters Date Type Department Care Team (Late st Contact Info) Description 12/05/2024 9:30 AM EDT Office Visit [facility] [address], [address] [place] [address] Marcos Santana APRN [address] [place], [place] [address] [place] [address] documented as of this encounter Visit Diagnoses Not on filedocumented in this encounter Additional Health Concerns Assessment Noted Time PHQ-9 Depression Total Score: 0 04/01/20 19 2:31 PM EST documented as of this encounter Care Teams Corner Block Cutter Relationship Specialty Start Date End Date Tiffanie Avery MD [address] [place] [address] PCP - General Family Medicine 01/20/18 10/28/23 Tiffanie Avery MD [address] [place] [address] PCP - General Family Medicine 12/22/23 Stew Hankins III, MD Gastroenterology 10/25/10 Kirby Kaur MD [address] [place] [address] Family Medicine 12/23/11 Nicholas Cristobal MD [address] [place] [address] Gastroenterology 08/08/14 Charlie Ayala, PA-C [address] [place] [address] Physician Auto Claim Representative 02/05/15 Sully Castillo LPN 02/22/15 Florin Vicente MD [address] [place] [address] [place] [address] Pulmonary Disease 01/19/18 Sindi Mcfarland MA 09/22/18 Mao Powell MD [address] [place] [address] Orthopedic Surgery 05/22/21 Jeff Douglas MD [address] [place] [address] Orthopedic Surgery 07/18/21 documented as of this encounter
--- OUTSIDE RECORDS SUMMARY | 2024-11-28 11:14 | XMS_ITS | Encounter Summary ---
Author Organization [facility] Address [address] [place] [address] Care Team Providers Care Spice Mixer Name Role Phone Abhi Ruiz MD Primary Care Provider Unavailabl e Rikki Painter DO Primary Care Provider [phone] Nhi AZUL MD, Morris Wilson Unavailable Haven vailable Louie Purdy MD Primary Care Provider [phone] Kirby Kaur MD Unavailable [phone] Maricruz Burris APRN Primary Care Provide r Nicholas Cristobal MD Unavailable Doctor, No Primary Care Provider UnavailCharlie Greenberg PA-C Unavailable [phone] Sully Castillo LPN Unavailable Unavailable Julio Samayoa APRN Primary Care Provider [phone] Julio Samayoa APRN Primary Care Provider [phone] Florin Vicente MD Unavailable Tiffanie Avery MD Primary Care Provider [phone] Sindi Mcfarland MA Unavailable Unavailable Mao Powell MD Unavailable [phone] Jeff Douglas MD Unavailable [phone] Tiffanie Avery MD Primary Care Provider [phone] Encounter Details Date Type Department Care Team (Late st Contact Info) Description 04/22/2007 Historical Encounter Global Abhi Ruiz MD Social [...] AM EDT Office Visit [facility] [address], [address] [place] [address] Marcos Santana APRN [address] [place] [address],[address] [place], [place] [address] documented as of this encounter Visit Diagnoses Not on filedocumented in this encounter Care Teams Spice Mixer Relationship Specialty Start Date End Date Abhi Ruiz MD PCP - General 12/29/07 10/04/09 Rikki Painter DO [address] [place] [address] PCP - General Family Medicine 10/05/09 06/12/11 Louie Purdy MD [address] [place] [address] PCP - General Family Medicine 06/13/11 07/05/14 Maricruz Burris APRN [address] [place] [address] PCP - General Nurse Practitioner 07/06/14 11/29/14 Otilia Abreu [place], [place] PCP - General Family Medicine 11/30/14 04/25/15 Julio Samayoa APRN [address] [place] [address] PCP - General nurse practitioner adult care 04/26/15 01/19/17 Julio Samayoa APRN [address] [place], [place] [address] PCP - General Family Practice 01/20/17 01/19/18 Tiffanie Avery MD [address] [place] [address] PCP - General Family Medicine 01/20/18 10/28/23 Tiffanie Avery MD [address] [place] [address] PCP - General Family Medicine 12/22/23 Stew Hankins III, MD Gastroenterology 10/25/10 Kirby Kaur MD [address] [place] [address] Family Medicine 12/23/11 Nicholas Cristobal MD [address] [place] [address] Gastroenterology 08/08/14 Charlie Ayala, PAMindiC [address] [place] [address] Physician Ophthalmic Surgical Assistant 02/05/15 Sully Castillo LPN 02/22/15 Florin Vicente MD [address] [place] [address] [place] [address] Pulmonary Disease 01/19/18 Sindi Mcfarland MA 09/22/18 Mao Powell MD [address] [place] [address] Orthopedic Surgery 05/22/21 Jeff Douglas MD [address] [place] [address] [place] [address] Orthopedic Surgery 07/18/21 documented as of this encounter
--- OUTSIDE RECORDS SUMMARY | 2024-11-28 11:14 | XMS_ITS | Encounter Summary ---
Author Organization [facility] Address [address] [place] [address] Care Team Providers Care Client Technologies Specialist Name Role Phone Nhi AZUL MD, Morris Wilson Unavailable Haven Kirby Bustamante MD Unavailable Nicholas Cristobal MD Unavailable Doctor, No Primary Care Provider UnavailCharlie Greenberg PA-C Unavailable Sully Castillo LPN Unavailable Unavailable Julio Samayoa APRN Primary Care Provider Julio Samayoa APRN Primary Care Provider Florin Vicente MD Unavailable Tiffanie Avery MD Primary Care Provider Sindi Mcfarland MA Unavailable Unavailable Mao Powell MD Unavailable [phone] Jeff Douglas MD Unavailable Tiffanie Avery MD Primary Care Provider Encounter Details Date Type Department Care Team (Late st Contact Info) Description 02/21/2015 Telephone [facility] [address] [place] [address] [address] [place] [address] Nicholas Cristobal MD [address] [place] [address] Social History Tobacco Use Types Packs/Day Years [...] Telephone Encounter - Sully Castillo LPN - 02/23/2015 12:34 PM EDT Left voice message. * Telephone Encounter - Nicholas Cristobal MD - 02/22/2015 4:47 PM EDT Pt had quite a bit of erosions during EGD this could be the reason. Pt to take Pylera as prescribed. If bleeding continues or is a large amount, report to ED. * Telephone Encounter - An Fisher - 02/21/2015 10:09 AM EDT Patient is having dark stool and red blood. Please advise. documented in this encounter Plan of Treatment Upcoming Encounters Date Type Department Care Team (Late st Contact Info) Description 12/05/2024 9:30 AM EDT Office Visit [facility] [address], [address] [place] [address] Marcos Santana APRN [address] [place] [address],[address] [place] [address] documented as of this encounter Visit Diagnoses Not on filedocumented in this encounter Care Teams Client Technologies Specialist Relationship Specialty Start Date End Date Doctor, SHADI Loomis PCP - General Family Medicine 11/30/14 04/25/15 Julio Samayoa APRN [address] [place], [place] [id number] PCP - General nurse practitioner adult care 04/26/15 01/19/17 Julio Samayoa APRN [address] [place], [place] [address] PCP - General Family Practice 01/20/17 01/19/18 Tiffanie Avery MD [address] [place] [address] PCP - General Family Medicine 01/20/18 10/28/23 Tiffanie Avery MD [address] [place] [address] PCP - General Family Medicine 12/22/23 Stew Hankins III, MD Gastroenterology 10/25/10 Kirby Kaur MD [address] [place] [address] [address] [place] [address] Family Medicine 12/23/11 Nicholas Cristobal MD [address] [place] [address] Gastroenterology 08/08/14 Charlie Ayala, PA-C [address] [place] [address] Physician Corporate Communications Manager 02/05/15 Sully Castillo LPN 02/22/15 Florin Vicente MD [address] [facility] [address] [place] [address] Pulmonary Disease 01/19/18 Sindi Mcfarland MA 09/22/18 Mao Powell MD [address] [place] [address] Orthopedic Surgery 05/22/21 Jeff Douglas MD [address] [place] [address] Orthopedic Surgery 07/18/21 documented as of this encounter
--- OUTSIDE RECORDS SUMMARY | 2024-11-28 11:14 | XMS_ITS | Encounter Summary ---
Author Organization [facility] Address [address] [place] [address] Care Team Providers Care Gas Appliance Installer Name Role Phone Abhi Ruiz MD Primary Care Provider Unavailabl e Rikki Painter DO Primary Care Provider [phone] Nhi AZUL MD, Morris Wilson Unavailable Haven vailable Louie Purdy MD Primary Care Provider [phone] Kirby Kaur MD Unavailable [phone] Maricruz Burris APRN Primary Care Provide r Nicholas Cristobal MD Unavailable Doctor, No Primary Care Provider UnavailCharlie Greenberg PA-C Unavailable [phone] Sully Castillo LPN Unavailable Unavailable Julio Samayoa APRN Primary Care Provider [phone] Julio Samayoa APRN Primary Care Provider [phone] Florin Vicente MD Unavailable Tiffanie Avery MD Primary Care Provider [phone] Sindi Mcfarland MA Unavailable Unavailable Mao Powell MD Unavailable [phone] Jeff Douglas MD Unavailable [phone] Tiffanie Avery MD Primary Care Provider Encounter Details Date Type Department Care Team (Late st Contact Info) Description 03/14/2006 Historical Encounter Global Abhi Ruiz MD Social [...] AM EDT Office Visit [facility] [address], [address] [place] [address] Marcos Santana APRN [address] [place] [address],[address] [place], [place] [id number] documented as of this encounter Visit Diagnoses Not on filedocumented in this encounter Care Teams Gas Appliance Installer Relationship Specialty Start Date End Date Abhi Ruiz MD PCP - General 12/29/07 10/04/09 Rikki Painter DO [address] [place] [address] PCP - General Family Medicine 10/05/09 06/12/11 Louie Purdy MD [address] [place] [address] PCP - General Family Medicine 06/13/11 07/05/14 Maricruz Burris APRN [address] [place] [address] PCP - General Nurse Practitioner 07/06/14 11/29/14 Otilia Abreu [place] PCP - General Family Medicine 11/30/14 04/25/15 Julio Samayoa APRN [address] [place] [address] PCP - General nurse practitioner adult care 04/26/15 01/19/17 Julio Samayoa APRN [address] [place], [place] [address] PCP - General Family Practice 01/20/17 01/19/18 Tiffanie Avery MD [address] [place] [address] PCP - General Family Medicine 01/20/18 10/28/23 Tiffanie Avery MD [address] [place] [address] PCP - General Family Medicine 12/22/23 Stew Hankins III, MD Gastroenterology 10/25/10 Kirby Kaur MD [address] [place] [address] Family Medicine 12/23/11 Nicholas Cristobal MD [address] [place] [address] Gastroenterology 08/08/14 Charlie Ayala, PAMindiC [address] [place] [address] Physician Rn Urgent Care 02/05/15 Sully Castillo LPN 02/22/15 Florin Vicente MD [address] [place] [address] [place] [address] Pulmonary Disease 01/19/18 Sindi Mcfarland MA 09/22/18 Mao Powell MD [address] [place] [address] Orthopedic Surgery 05/22/21 Jeff Douglas MD [address] [place] [address] [place] [address] Orthopedic Surgery 07/18/21 documented as of this encounter
--- OUTSIDE RECORDS SUMMARY | 2024-11-28 11:14 | XMS_ITS | Encounter Summary ---
Author Organization [facility] Address [address] [place] [address] Care Team Providers Care Hockey Scout Name Role Phone Nhi AZUL MD, Morris Wilson Unavailable Haven lisailaLouie Cui MD Primary Care Provider [phone] Kirby Kaur MD Unavailable [phone] Maricruz Burris APRN Primary Care Provide r Nicholas Cristobal MD Unavailable Doctor, No Primary Care Provider UnavailCharlie Greenberg PA-C Unavailable [phone] Sully Castillo LPN Unavailable Unavailable Julio Samayoa APRN Primary Care Provider [phone] Julio Samayoa APRN Primary Care Provider [phone] Florin Vicente MD Unavailable Tiffanie Avery MD Primary Care Provider [phone] Sindi Mcfarland MA Unavailable Unavailable Mao Powell MD Unavailable [phone] Jeff Douglas MD Unavailable [phone] Tiffanie Avery MD Primary Care Provider [phone] Encounter Details Date Type Department Care Team (Latest Contact Info) Description 04/07/2014 Transcribe Orders [facility] [address] [facility] [address] [place] [address] Louie Purdy MD [address] [place] [address] Diabetes mellitus (Primary Dx); Weight loss; Abdominal discomfort; Abdominal pain, other specified site; Chronic nausea; Decreased appetite Social History Tobacco Use Types Packs/Day Years [...] AM EDT Office Visit [facility] [address], [address] [place] [address] Marcos Santana, YANNICK [address] [place] [address],[address] [place] [address] documented as of this encounter Procedures Procedure Name Priority Date/Time Associated Diagnosis Comments POCT BUN AND CREATININE Routine 04/07/2014 11:05 AM EST Diabetes mellitus Weight loss Abdominal discomfort Abdominal pain, other specified site Chronic nausea Decreased appetite documented in this encounter Results * POCT BUN and Creatinine (04/07/2014 11:05 AM EST) BUN 13 8 - 26 mg/dL CREATININE 1.0 0.6 - 1.3 mg/dL Blood 04/07/2014 11:0 5 AM EST Louie Purdy MD POINT OF CARE TEST ORDERABLE S Final Result documented in this encounter Visit Diagnoses Diagnosis Diabetes mellitus (HCC)- Primary Type II or unspecified type diabetes mellitus without mention of complication, not stated as uncontrolled Weight loss Loss of weight Abdominal discomfort Abdominal pain, unspecified site Abdominal pain, other specified site Chronic nausea Nausea alone Decreased appetite Anorexia documented in this encounter Care Teams Hockey Scout Relationship Specialty Start Date End Date Louie Purdy MD [address] [place] [address] PCP - General Family Medicine 06/13/11 07/05/14 Maricruz Burris APRN [address] [place] [address] PCP - General Nurse Practitioner 07/06/14 11/29/14 Otilia [place]bre[place] PCP - General Family Medicine 11/30/14 04/25/15 Julio Samayoa APRN [address] [place] [address] PCP - General nurse practitioner adult care 04/26/15 01/19/17 Julio Samayoa APRN [address] [place] [address] PCP - General Family Practice 01/20/17 01/19/18 Tiffanie Avery MD [address] [place] [id number] PCP - General Family Medicine 01/20/18 10/28/23 Tiffanie Avery MD [address] [place] [address] PCP - General Family Medicine 12/22/23 Stew Hankins III, MD Gastroenterology 10/25/10 Kirby Kaur MD [address] [place] [address] Family Medicine 12/23/11 Nicholas Cristobal MD [address] [place] [address] Gastroenterology 08/08/14 Charlie Ayala PA-C [address] [place] [address] [address] [place] [address] Physician Financial Legal Assistant 02/05/15 Sully Castillo LPN 02/22/15 Florin Vicente MD [address] [facility] [place] [address] Pulmonary Disease 01/19/18 Sindi Mcfarland MA 09/22/18 Mao Powell MD [address] [place] [address] [place] [address] Orthopedic Surgery 05/22/21 Jeff Douglas MD [address] [place] [address] [place] [address] Orthopedic Surgery 07/18/21 documented as of this encounter
--- OUTSIDE RECORDS SUMMARY | 2024-11-28 11:14 | XMS_ITS | Encounter Summary ---
Author Organization [facility] Address [address] [place] [id number] Care Team Providers Care Casing Soaker Name Role Phone Nhi AZUL MD, Morris Wilson Unavailable Haven Kirby Bustamante MD Unavailable [phone] Nicholas Cristobal MD Unavailable Doctor, No Primary Care Provider UnavailCharlie Greenberg PA-C Unavailable Sully Castillo LPN Unavailable Unavailable Julio Samayoa APRN Primary Care Provider [phone] Julio Samayoa APRN Primary Care Provider [phone] Florin Vicente MD Unavailable Tiffanie Avery MD Primary Care Provider [phone] Sindi Mcfarland MA Unavailable Unavailable Mao Powell MD Unavailable [phone] Jeff Douglas MD Unavailable [phone] Tiffanie Avery MD Primary Care Provider [phone] Reason for Visit * Reason Onset Date Comments Results - Lab 03/23/2015 Encounter Details Date Type Department Care Team (Late st Contact Info) Description 03/23/2015 Telephone [facility] [address] [place] [address] Elva Hsieh, RN Results - Lab Social History Tobacco [...] Telephone Encounter - Sully Castillo LPN - 03/26/2015 3:20 PM EST Spoke with patient she verbalized undertsanding . Ferrous sulfate 325mg called to [facility]. * Telephone Encounter - Ervin Ayala - 03/26/2015 9:39 AM EST 325 mg iron supplement is fine. He has cholesterol checked in December and it was good. * Nurse Triage - Elva Hsieh RN - 03/23/2015 3:56 PM EDT Patient is not currently taking an iron supplement other that his multivitamin. Wanted to know if he needed to take specific dose of OTC iron tabs? And also wanted to know if you would order labs to have his cholesterol checked? Please advise. Thanks. documented in this encounter Plan of Treatment Upcoming Encounters Date Type Department Care Team (Late st Contact Info) Description 12/05/2024 9:30 AM EDT Office Visit [facility] [address], [address] [place] [address] Marcos Santana APRN [address] [place] [address],[address] [place] [address] documented as of this encounter Visit Diagnoses Not on filedocumented in this encounter Care Teams Casing Soaker Relationship Specialty Start Date End Date Doctor, SHADI Loomis PCP - General Family Medicine 11/30/14 04/25/15 Julio Samayoa APRN [address] [place] [address] PCP - General nurse practitioner adult care 04/26/15 01/19/17 Julio Samayoa APRN [address] [place] [address] PCP - General Family Practice 01/20/17 01/19/18 Tiffanie Avery MD [address] [place] [address] PCP - General Family Medicine 01/20/18 10/28/23 Tiffanie Avery MD [address] [place] [address] PCP - General Family Medicine 12/22/23 Stew Hankins III, MD Gastroenterology 10/25/10 Kirby Kaur MD [address] [place] [address] [address] [place] [address] Family Medicine 12/23/11 Nicholas Cristobal MD [address] [place] [address] Gastroenterology 08/08/14 Charlie Ayala PA-C [address] [place] [address] Physician Adoption Social Worker 02/05/15 Sully Castillo LPN 02/22/15 Florin Vicente MD [address] [facility] [address] [place] [address] Pulmonary Disease 01/19/18 Sindi Mcfarland MA 09/22/18 Mao Powell MD [address] [place] [address] Orthopedic Surgery 05/22/21 Jeff Douglas MD [address] [place] [address] Orthopedic Surgery 07/18/21 documented as of this encounter
--- OUTSIDE RECORDS SUMMARY | 2024-11-28 11:14 | XMS_ITS | Encounter Summary ---
Author Organization [facility] Address [address] [place] [address] Care Team Providers Care Plate Keeper Name Role Phone Nhi AZUL MD, Stew Gonzales Unavailable Haven Kirby Bustamante MD Unavailable Nicholas Cristobal MD Unavailable Charlie Ayala PA-C Unavailable Sully Castillo LPN Unavailable Unavailable Florin Vicente MD Unavailable Tiffanie Avery MD Primary Care Provider [phone] Sindi Mcfarland MA Unavailable Unavailable Mao Powell MD Unavailable [phone] Jeff Douglas MD Unavailable Tiffanie Avery MD Primary Care Provider [phone] Encounter Details Date Type Department Care Team (Late st Contact Info) Description 01/31/2021 Telephone [facility] [address] [place] [address] [place] [address] Tiffanie Avery MD [address] [place] [address] Social History Tobacco Use Types Packs/Day [...] have Coronavirus / COVID-19? No / Unsure 01/01/2021 8:26 AM EDT documented as of this encounter Plan of Treatment Upcoming Encounters Date Type Department Care Team (Late st Contact Info) Description 12/05/2024 9:30 AM EDT Office Visit [facility] [address], [address] [place] [address] Marcos Santana, YANNICK [address] [place] [address] [place], [place] [address] documented as of this encounter Visit Diagnoses Not on filedocumented in this encounter Additional Health Concerns Assessment Noted Time PHQ-9 Depression Total Score: 0 04/01/20 19 2:31 PM EST documented as of this encounter Care Teams Plate Keeper Relationship Specialty Start Date End Date Tiffanie Avery MD [address] [place] [address] PCP - General Family Medicine 01/20/18 10/28/23 Tiffanie Avery MD [address] [place] [address] PCP - General Family Medicine 12/22/23 Stew Hankins III, MD Gastroenterology 10/25/10 Kirby Kaur MD [address] [place] [address] [address] [place] [address] Family Medicine 12/23/11 Nicholas Cristobal MD [address] [place] [address] [address] [place] [address] Gastroenterology 08/08/14 Charlie Ayala PA-C [address] [place] [address] [address] [place] [address] Physician Granite Polisher 02/05/15 Sully Castillo LPN 02/22/15 Florin Vicente MD [address] [facility] [address] [place] [address] Pulmonary Disease 01/19/18 Sindi Mcfarland MA 09/22/18 Mao Powell MD [address] [place] [address] [place] [address] Orthopedic Surgery 05/22/21 Jeff Douglas MD [address] [place] [address] [address] Orthopedic Surgery 07/18/21 documented as of this encounter
--- OUTSIDE RECORDS SUMMARY | 2024-11-28 11:14 | XMS_ITS | Encounter Summary ---
Author Organization [facility] Address [address] [place] [address] Care Team Providers Care Digital Strategist Name Role Phone Abhi Ruiz MD Primary Care Provider Unavailabl e Rikki Painter DO Primary Care Provider [phone] Nhi AZUL MD, Morris Wilson Unavailable Haven vailable Louie Purdy MD Primary Care Provider [phone] Kirby Kaur MD Unavailable [phone] Maricruz Burris APRN Primary Care Provide r Nicholas Cristobal MD Unavailable Doctor, No Primary Care Provider UnavailCharlie Greenberg PA-C Unavailable [phone] Sully Castillo LPN Unavailable Unavailable Julio Samayoa APRN Primary Care Provider [phone] Julio Samayoa APRN Primary Care Provider [phone] Florin Vicente MD Unavailable Tiffanie Avery MD Primary Care Provider [phone] Sindi Mcfarland MA Unavailable Unavailable Mao Powell MD Unavailable [phone] Jeff Douglas MD Unavailable [phone] Tiffanie Avery MD Primary Care Provider [phone] Encounter Details Date Type Department Care Team (Late st Contact Info) Description 10/23/2007 Historical Encounter Global Abhi Ruiz MD Social [...] AM EDT Office Visit [facility] [address], [address] [place] [address] Marcos Santana APRN [address] [place] [address],[address] [place], [place] [address] documented as of this encounter Visit Diagnoses Not on filedocumented in this encounter Care Teams Digital Strategist Relationship Specialty Start Date End Date Abhi Ruiz MD PCP - General 12/29/07 10/04/09 Rikki Painter DO [address] [place] [address] PCP - General Family Medicine 10/05/09 06/12/11 Louie Purdy MD [address] [place] [address] PCP - General Family Medicine 06/13/11 07/05/14 Maricruz Burris APRN [address] [place] [address] PCP - General Nurse Practitioner 07/06/14 11/29/14 Otilia Abreu [place] PCP - General Family Medicine 11/30/14 04/25/15 Julio Samayoa APRN [address] [place] [address] PCP - General nurse practitioner adult care 04/26/15 01/19/17 Julio Samayoa APRN [address] [place], [place] [address] PCP - General Family Practice 01/20/17 01/19/18 Tiffanie Avery MD [address] [place] [address] PCP - General Family Medicine 01/20/18 10/28/23 Tiffanie Avery MD [address] [place] [address] PCP - General Family Medicine 12/22/23 Stew Hankins III, MD Gastroenterology 10/25/10 Kirby Kaur MD [address] [place] [address] Family Medicine 12/23/11 Nicholas Cristobal MD [address] [place] [address] Gastroenterology 08/08/14 Charlie Ayala, PAMindiC [address] [place] [address] Physician Dice Manager 02/05/15 Sully Castillo LPN 02/22/15 Florin Vicente MD [address] [place] [address] [place] [address] Pulmonary Disease 01/19/18 Sindi Mcfarland MA 09/22/18 Mao Powell MD [address] [place] [address] Orthopedic Surgery 05/22/21 Jeff Douglas MD [address] [place] [address] [place] [address] Orthopedic Surgery 07/18/21 documented as of this encounter
--- OUTSIDE RECORDS SUMMARY | 2024-11-28 11:14 | XMS_ITS | Encounter Summary ---
Author Organization [facility] Address [address] [place] [address] Care Team Providers Care Classifications Officer Cc/Cm Name Role Phone Nhi AZUL MD, Morris Wilson Unavailable Haven Kirby Bustamante MD Unavailable Nicholas Cristobal MD Unavailable Doctor, No Primary Care Provider UnavailCharlie Greenberg PA-C Unavailable Sully Castillo LPN Unavailable Unavailable Julio Samayoa APRN Primary Care Provider [phone] Julio Samayoa APRN Primary Care Provider Florin Vicente MD Unavailable Tiffanie Avery MD Primary Care Provider [phone] Sindi Mcfarland MA Unavailable Unavailable Mao Powell MD Unavailable Jeff Douglas MD Unavailable [phone] Tiffanie Avery MD Primary Care Provider [phone] Encounter Details Date Type Department Care Team (Late st Contact Info) Description 03/16/2015 Orders Only [facility] [address] [place] [address] Debbie Urias LPN Occult blood positive stool (Primary Dx) Social History Tobacco Use Types [...] 9:30 AM EDT Office Visit [facility] [address] [place] [address], [address] [place] [address] Marcos Santana APRN [address] [place] [address],[address] [place], [place] [address] documented as of this encounter Visit Diagnoses Diagnosis Occult blood positive stool- Primary Nonspecific abnormal finding in stool contents documented in this encounter Care Teams Classifications Officer Cc/Cm Relationship Specialty Start Date End Date Doctor, Otilia [place] PCP - General Family Medicine 11/30/14 04/25/15 Julio Samayoa APRN [address] [place] [address] PCP - General nurse practitioner adult care 04/26/15 01/19/17 Julio Samayoa APRN [address] [place] [address] PCP - General Family Practice 01/20/17 01/19/18 Tiffanie Avery MD [address] [place] [address] PCP - General Family Medicine 01/20/18 10/28/23 Tiffanie Avery MD [address] [place] [address] PCP - General Family Medicine 12/22/23 Stew Hankins III, MD Gastroenterology 10/25/10 Kirby Kaur MD [address] [place] [address] [address] Family Medicine 12/23/11 Nicholas Cristobal MD [address] [place] [address] Gastroenterology 08/08/14 Charlie Ayala, TORIC [address] [place] [address] Physician Ultrasound Applications Specialist 02/05/15 Sully Castillo LPN 02/22/15 [place] [address] [place] [address] [address] Pulmonary Disease 01/19/18 Sindi Mcfarland MA 09/22/18 Mao Powell MD [address] [place] [address] [address] Orthopedic Surgery 05/22/21 Jeff Douglas MD [address] [place] [address] Orthopedic Surgery 07/18/21 documented as of this encounter
--- OUTSIDE RECORDS SUMMARY | 2024-11-28 11:14 | XMS_ITS | Encounter Summary ---
Author Organization [facility] Address [address] [place] [address] Care Team Providers Care Model Engine Mechanic Name Role Phone Abhi Ruiz MD Primary Care Provider Unavailabl e Rikki Painter DO Primary Care Provider [phone] Nhi AZUL MD, Morris Wilson Unavailable Haven vailable Louie Purdy MD Primary Care Provider [phone] Kirby Kaur MD Unavailable [phone] Maricruz Burris APRN Primary Care Provide r Nicholas Cristobal MD Unavailable Doctor, No Primary Care Provider UnavailCharlie Greenberg PA-C Unavailable [phone] Sully Castillo LPN Unavailable Unavailable Julio Samayoa APRN Primary Care Provider [phone] Julio Samayoa APRN Primary Care Provider [phone] Florin Vicente MD Unavailable Tiffanie Avery MD Primary Care Provider [phone] Sindi Mcfarland MA Unavailable Unavailable Mao Powell MD Unavailable [phone] Jeff Douglas MD Unavailable [phone] Tiffanie Avery MD Primary Care Provider Encounter Details Date Type Department Care Team (Late st Contact Info) Description 09/04/2006 Historical Encounter Global Abhi Ruiz MD Social [...] 9:30 AM EDT Office Visit [facility] [address], [address] [place] [address] Marcos Santana APRN [address] [place] [address],[address] [place], [place] [id number] documented as of this encounter Visit Diagnoses Not on filedocumented in this encounter Care Teams Model Engine Mechanic Relationship Specialty Start Date End Date Abhi Ruiz MD PCP - General 12/29/07 10/04/09 Rikki Painter DO [address] [place] [address] PCP - General Family Medicine 10/05/09 06/12/11 Louie Purdy MD [address] [place] [address] PCP - General Family Medicine 06/13/11 07/05/14 Maricruz Burris APRN [address] [place] [address] PCP - General Nurse Practitioner 07/06/14 11/29/14 Otilia Abreu [place] PCP - General Family Medicine 11/30/14 04/25/15 Julio Samayoa APRN [address] [place] [address] PCP - General nurse practitioner adult care 04/26/15 01/19/17 Julio Samayoa APRN [address] [place], [place] [id number] PCP - General Family Practice 01/20/17 01/19/18 Tiffanie Avery MD [address] [place] [address] PCP - General Family Medicine 01/20/18 10/28/23 Tiffanie Avery MD [address] [place] [address] PCP - General Family Medicine 12/22/23 Stew Hankins III, MD Gastroenterology 10/25/10 Kirby Kaur MD [address] [place] [address] Family Medicine 12/23/11 Nicholas Cristobal MD [address] [place] [address] Gastroenterology 08/08/14 Charlie Ayala, PAMindiC [address] [place] [address] Physician Medical Associate 02/05/15 Sully Castillo LPN 02/22/15 Florin Vicente MD [address] [place] [address] [place] [address] Pulmonary Disease 01/19/18 Sindi Mcfarland MA 09/22/18 Mao Powell MD [address] [place] [address] Orthopedic Surgery 05/22/21 Jeff Douglas MD [address] [place] [address] [place] [address] Orthopedic Surgery 07/18/21 documented as of this encounter
--- OUTSIDE RECORDS SUMMARY | 2024-11-28 11:14 | XMS_ITS | Encounter Summary ---
Author Organization [facility] Address [address] [place] [address] Care Team Providers Care Nuclear Medicine Technologist Name Role Phone Nhi AZUL MD, Stew Gonzales Unavailable Haven Kirby Bustamante MD Unavailable Nicholas Cristobal MD Unavailable Charlie Ayala PA-C Unavailable Sully Castillo LPN Unavailable Unavailable Florin Vicente MD Unavailable Tiffanie Avery MD Primary Care Provider [phone] Sindi Mcfarland MA Unavailable Unavailable Mao Powell MD Unavailable [phone] Jeff Douglas MD Unavailable [phone] Tiffanie Avery MD Primary Care Provider [phone] Encounter Details Date Type Department Care Team (Late st Contact Info) Description 01/21/2021 Telephone [facility] [address] [place] [address] [place] [address] Tiffanie Avery MD [address] [place] [address] Social History Tobacco Use Types Packs/Day Years [...] Telephone Encounter - Debbie Urias LPN - 01/22/2021 11:04 AM EDT Can he have a script for crutches. * Telephone Encounter - Debbie Urias LPN - 01/22/2021 11:04 AM EDT Left message on voice mail. * Telephone Encounter - Tiffanie Avery MD - 01/21/2021 5:08 PM EDT Sent in uloric * Telephone Encounter - Sirisha Urias - 01/21/2021 3:28 PM EDT Patient is calling in again about his gout left foot was just on the ball around his toes, but now up into his ankle. This has been called in for him 2x's. predniSONE (DELTASONE) 20 mg tablet. He is asking for something that he can be on something all the time. He is asking for crutches due to not being able to weight on his foot. Please advise the patient. Thank you documented in this encounter Plan of Treatment Upcoming Encounters Date Type Department Care Team (Late st Contact Info) Description 12/05/2024 9:30 AM EDT Office Visit [facility] [address], [address] [place] [address] Marcos Santana APRN [address] [place] [address],[address] [place] [address] documented as of this encounter Visit Diagnoses Diagnosis Gout, unspecified cause, unspecified chronicity, unspecified site- Primary documented in this encounter Additional Health Concerns Assessment Noted Time PHQ-9 Depression Total Score: 0 04/01/20 19 2:31 PM EST documented as of this encounter Care Teams Nuclear Medicine Technologist Relationship Specialty Start Date End Date Tiffanie Avery MD [address] [place] [address] PCP - General Family Medicine 01/20/18 10/28/23 Tiffanie Avery MD [address] [place] [address] PCP - General Family Medicine 12/22/23 Stew Hankins III, MD Gastroenterology 10/25/10 Kirby Kaur MD [address] [place] [address] [address] [place] [id number] Family Medicine 12/23/11 Nicholas Cristobal MD [address] [place] [address] [address] [place] [address] Gastroenterology 08/08/14 Charlie Ayala PA-C [address] [place] [address] [address] [place] [address] Physician Real Estate Appraiser Supervisor 02/05/15 Sully Castillo LPN 02/22/15 Florin Vicente MD [address] [facility] [address] [place] [address] Pulmonary Disease 01/19/18 Sindi Mcfarland MA 09/22/18 Mao Powell MD [address] [place] [address] Orthopedic Surgery 05/22/21 Jeff Douglas MD [address] [place] [address] Orthopedic Surgery 07/18/21 documented as of this encounter
--- OUTSIDE RECORDS SUMMARY | 2024-11-28 11:14 | XMS_ITS | Encounter Summary ---
Author Organization [facility] Address [address] [place] [address] Care Team Providers Care Personal Care Home Administrator Name Role Phone Abhi Ruiz MD Primary Care Provider Unavailabl e Rikki Painter DO Primary Care Provider [phone] Nhi AZUL MD, Morris Wilson Unavailable Haven vailable Louie Purdy MD Primary Care Provider [phone] Kirby Kaur MD Unavailable [phone] Maricruz Burris APRN Primary Care Provide r Nicholas Cristobal MD Unavailable Doctor, No Primary Care Provider UnavailCharlie Greenberg PA-C Unavailable [phone] Sully Castillo LPN Unavailable Unavailable Julio Samayoa APRN Primary Care Provider [phone] Julio Samayoa APRN Primary Care Provider [phone] Florin Vicente MD Unavailable Tiffanie Avery MD Primary Care Provider [phone] Sindi Mcfarland MA Unavailable Unavailable Mao Powell MD Unavailable [phone] Jeff Douglas MD Unavailable [phone] Tiffanie Avery MD Primary Care Provider Encounter Details Date Type Department Care Team (Late st Contact Info) Description 01/07/2006 Historical Encounter Global Abhi Ruiz MD Social [...] 9:30 AM EDT Office Visit [facility] [address], [address] [place] [address] Marcos Santana APRN [address] [place] [address],[address] [place], [place] [address] documented as of this encounter Visit Diagnoses Not on filedocumented in this encounter Care Teams Personal Care Home Administrator Relationship Specialty Start Date End Date Abhi Ruiz MD PCP - General 12/29/07 10/04/09 Rikki Painter DO [address] [place] [address] PCP - General Family Medicine 10/05/09 06/12/11 Louie Purdy MD [address] [place] [address] PCP - General Family Medicine 06/13/11 07/05/14 Maricruz Burris APRN [address] [place] [address] PCP - General Nurse Practitioner 07/06/14 11/29/14 Otilia Abreu [place] PCP - General Family Medicine 11/30/14 04/25/15 Julio Samayoa APRN [address] [place] [address] PCP - General nurse practitioner adult care 04/26/15 01/19/17 Julio Samayoa APRN [address] [place], [place] [address] PCP - General Family Practice 01/20/17 01/19/18 Tiffanie Avery MD [address] [place] [address] PCP - General Family Medicine 01/20/18 10/28/23 Tiffanie Avery MD [address] [place] [address] PCP - General Family Medicine 12/22/23 Stew Hankins III, MD Gastroenterology 10/25/10 Kirby Kaur MD [address] [place] [address] Family Medicine 12/23/11 Nicholas Cristobal MD [address] [place] [address] Gastroenterology 08/08/14 Charlie Ayala, PAMindiC [address] [place] [address] Physician Epic Cadence Analyst 02/05/15 Sully Castillo LPN 02/22/15 Florin Vicente MD [address] [place] [address] [place] [address] Pulmonary Disease 01/19/18 Sindi Mcfarland MA 09/22/18 Mao Powell MD [address] [place] [address] Orthopedic Surgery 05/22/21 Jeff Douglas MD [address] [place] [address] [place] [address] Orthopedic Surgery 07/18/21 documented as of this encounter
--- OUTSIDE RECORDS SUMMARY | 2024-11-28 11:14 | XMS_ITS | Encounter Summary ---
Author Organization [facility] Address [address] [place] [address] Care Team Providers Care Form Block Maker Name Role Phone Nhi AZUL MD, Stew Gonzales Unavailable Haven Kirby Bustamante MD Unavailable [phone] Nicholas Cristobal MD Unavailable Charlie Ayala PA-C Unavailable Sully Castillo LPN Unavailable Unavailable Florin Vicente MD Unavailable Tiffanie Avery MD Primary Care Provider [phone] Sindi Mcfarland MA Unavailable Unavailable Mao Powell MD Unavailable [phone] Jeff Douglas MD Unavailable [phone] Tiffanie Avery MD Primary Care Provider [phone] Encounter Details Date Type Department Care Team (Late st Contact Info) Description 11/15/2020 Telephone [facility] [address], [address] [place] [address] Chago Ventura Social History Tobacco Use Types Packs/Day Years [...] have Coronavirus / COVID-19? No / Unsure 11/13/2020 2:46 PM EDT documented as of this encounter Miscellaneous Notes * Telephone Encounter - Zena Batista APRN - 11/15/2020 1:33 PM EDT Has not been seen in 2 yrs, needs appt * Telephone Encounter - Chago Ventura - 11/15/2020 1:25 PM EDT Gastro asks to hold brilanta 5 days prior to colonoscopy documented in this encounter Plan of Treatment Upcoming Encounters Date Type Department Care Team ([facility] Contact Info) Description 12/05/2024 9:30 AM EDT Office Visit [facility] [address], [address] [place] [address] Marcos Santana APRN [address] [place], [place] [address] [place] [address] documented as of this encounter Visit Diagnoses Not on filedocumented in this encounter Additional Health Concerns Assessment Noted Time PHQ-9 Depression Total Score: 0 04/01/20 19 2:31 PM EST documented as of this encounter Care Teams Form Block Maker Relationship Specialty Start Date End Date Tiffanie Avery MD [address] [place] [address] PCP - General Family Medicine 01/20/18 10/28/23 Tiffanie Avery MD [address] [place] [address] PCP - General Family Medicine 12/22/23 Stew Hankins III, MD Gastroenterology 10/25/10 Kirby Kaur MD [address] [place] [address] [place] [address] Family Medicine 12/23/11 Nicholas Cristobal MD [address] [place] [address] [address] [place] [address] Gastroenterology 08/08/14 Charlie Ayala, ALKA [address] [place] [address] [address] [place] [address] Physician Machining Engineer 02/05/15 Sully Castillo LPN 02/22/15 [place] [address] [place] [address] [place] [address] Pulmonary Disease 01/19/18 Sindi Mcfarland MA 09/22/18 Mao Powell MD [address] [place] [address] [place] [address] Orthopedic Surgery 05/22/21 Jeff Douglas MD [address] [place] [address] [address] Orthopedic Surgery 07/18/21 documented as of this encounter
--- OUTSIDE RECORDS SUMMARY | 2024-11-28 11:14 | XMS_ITS | Encounter Summary ---
Author Organization [facility] Address [address] [place] [address] Care Team Providers Care Planer Hand Name Role Phone Abhi Ruiz MD Primary Care Provider Unavailabl e Rikki Painter DO Primary Care Provider [phone] Nhi AZUL MD, Morris Wilson Unavailable Haven vailable Louie Purdy MD Primary Care Provider [phone] Kirby Kaur MD Unavailable [phone] Maricruz Burris APRN Primary Care Provide r Nicholas Cristobal MD Unavailable Doctor, No Primary Care Provider UnavailCharlie Greenberg PA-C Unavailable [phone] Sully Castillo LPN Unavailable Unavailable Julio Saamyoa APRN Primary Care Provider [phone] Julio Samayoa APRN Primary Care Provider [phone] Florin Vicente MD Unavailable Tiffanie Avery MD Primary Care Provider [phone] Sindi Mcfarland MA Unavailable Unavailable Mao Powell MD Unavailable [phone] Jeff Douglas MD Unavailable [phone] Tiffanie Avery MD Primary Care Provider [phone] Encounter Details Date Type Department Care Team (Late st Contact Info) Description 04/26/2003 Historical Encounter Global Blu Ruiz Social History Tobacco Use Types Packs/Day Years Used Date Smoking Tobacco: Never Assessed Sex and Gender Information Value Date Recorded Sex Assigned at Not on file Legal Sex Male 9:36 PM EST Gender Identity Not on file Sexual Orientation Not on file documented as of this encounter Plan of Treatment Upcoming Encounters Date Type Department Care Team ([facility] st Contact Info) Description 12/05/2024 9:30 AM EDT Office Visit [facility] [address], [address] [place] [address] Marcos Santana APRN [address] [place] [address],[address] [place], [place] [address] documented as of this encounter Visit Diagnoses Not on filedocumented in this encounter Care Teams Planer Hand Relationship Specialty Start Date End Date Abhi Ruiz MD PCP - General 12/29/07 10/04/09 Rikki Painter DO [address] [place] [address] PCP - General Family Medicine 10/05/09 06/12/11 Louie Purdy MD [address] [place] [address] PCP - General Family Medicine 06/13/11 07/05/14 Maricruz Burris ROTARY ENGINE ASSEMBLER [address] [place] [address] PCP - General Nurse Practitioner 07/06/14 11/29/14 Otilia Abreu [place], [place] PCP - General Family Medicine 11/30/14 04/25/15 Julio Samayoa APRN [address] [place] [address] PCP - General nurse practitioner adult care 04/26/15 01/19/17 Julio Samayoa, YANNICK [address] [place] [address] PCP - General Family Practice 01/20/17 01/19/18 Tiffanie Avery MD [address] [place] [address] PCP - General Family Medicine 01/20/18 10/28/23 Tiffanie Avery MD [address] [place] [address] PCP - General Family Medicine 12/22/23 Stew Hankins III, MD Gastroenterology 10/25/10 Kirby Kaur MD [address] [place] [address] Family Medicine 12/23/11 Nicholas Cristobal MD [address] [place] [address] Gastroenterology 08/08/14 Charlie Ayala, PA-C [address] [place] [address] Physician Hotel Manager 02/05/15 Sully Castillo LPN 02/22/15 Florin Vicente MD [address] [place] [address] [place] [address] Pulmonary Disease 01/19/18 Sindi Mcfarland MA 09/22/18 Mao Powell MD [address] [place] [address] Orthopedic Surgery 05/22/21 Jeff Douglas MD [address] [place], [place] [address] Orthopedic Surgery 07/18/21 documented as of this encounter
--- OUTSIDE RECORDS SUMMARY | 2024-11-28 11:14 | XMS_ITS | Encounter Summary ---
Author Organization [facility] Address [address] [place] [address] Care Team Providers Care Cutting Machine Operator Helper Name Role Phone Nhi AZUL MD, Stew Gonzales Unavailable Haven Kirby Bustamante MD Unavailable [phone] Nicholas Cristobal MD Unavailable Charlie Ayala PA-C Unavailable [phone] Sully Castillo LPN Unavailable Unavailable Julio Samayoa APRN Primary Care Provider [phone] Florin Vicente MD Unavailable Tiffanie Avery MD Primary Care Provider [phone] Sindi Mcfarland MA Unavailable Unavailable Mao Powell MD Unavailable [phone] Jeff Douglas MD Unavailable Tiffanie Avery MD Primary Care Provider [phone] Reason for Visit * Reason Onset Date Comments Schedule Procedure 03/30/2017 Encounter Details Date Type Department Care Team (Late st Contact Info) Description 03/30/2017 Telephone [facility] [address], [address] [place] [address] Joann Ayoub MD [address] [place] [address] [address] [place] [address] Schedule Procedure Social History Tobacco Use Types Packs/Day Years [...] encounter Miscellaneous Notes * Telephone Encounter - An García - 03/31/2017 10:29 AM EST Left msg for patient to call me back. Per Dr Ayoub he is going to order a cta instead of stress. This will be done in [place]. Please advise patient if he calls back. * Telephone Encounter - Taya Dumont LPN - 03/30/2017 3:05 PM EST Maximus discuss with kraig * Telephone Encounter - Nicki Gonzales - 03/30/2017 3:00 PM EST The only date available for the stress is April 13 to be done in [place] or April 13 in [place]. Please call them back and left them know which location. documented in this encounter Plan of Treatment Upcoming Encounters Date Type Department Care Team (Late st Contact Info) Description 12/05/2024 9:30 AM EDT Office Visit [facility] [address], [address] [place] [address] Marcos Santana APRN [address] [place] [address],[address] [place] [address] documented as of this encounter Visit Diagnoses Not on filedocumented in this encounter Care Teams Cutting Machine Operator Helper Relationship Specialty Start Date End Date Julio Samayoa APRN [address] [place] [address] PCP - General Family Practice 01/20/17 01/19/18 Tiffanie Avery MD [address] [place] [address] PCP - General Family Medicine 01/20/18 10/28/23 Tiffanie Avery MD [address] [place] [address] PCP - General Family Medicine 12/22/23 Stew Hankins III, MD Gastroenterology 10/25/10 Kirby aKur MD [address] [place] [address] Family Medicine 12/23/11 Nicholas Cristobal MD [address] [place] [address] Gastroenterology 08/08/14 Charlie Ayala, PA-C [address] [place] [address] Physician Knit Goods Press Hand 02/05/15 Sully Castillo LPN 02/22/15 Florin Vicente MD [address] [place] [address] [place] [address] Pulmonary Disease 01/19/18 Sindi Mcfarland MA 09/22/18 Mao Powell MD [address] [place] [address] Orthopedic Surgery 05/22/21 Jeff Douglas MD [address] [place] [address] Orthopedic Surgery 07/18/21 documented as of this encounter
--- OUTSIDE RECORDS SUMMARY | 2024-11-28 11:14 | XMS_ITS | Encounter Summary ---
Author Organization [facility] Address [address] [place] [address] Care Team Providers Care Home Paraprofessional Name Role Phone Nhi AZUL MD, Stew Gonzales Unavailable Haven Kirby Bustamante MD Unavailable Nicholas Cristobal MD Unavailable Charlie Ayala PA-C Unavailable Sully Castillo LPN Unavailable Unavailable Julio Samayoa APRN Primary Care Provider [phone] Florin Vicente MD Unavailable Tiffanie Avery MD Primary Care Provider Sindi Mcfarland MA Unavailable Unavailable Mao Powell MD Unavailable Jeff Douglas MD Unavailable Tiffanie Avery MD Primary Care Provider [phone] Encounter Details Date Type Department Care Team (Late st Contact Info) Description 04/03/2017 Telephone [facility] [address], [address] [place] [address] Joann Ayoub MD [address] [place] [address] [address] [place] [address] Social History Tobacco Use Types Packs/Day Years [...] * Telephone Encounter - Rubi Weinstein - 04/03/2017 9:09 AM EST Pt called needing results to CT scan. Please advise documented in this encounter Plan of Treatment Upcoming Encounters Date Type Department Care Team (Late st Contact Info) Description 12/05/2024 9:30 AM EDT Office Visit [facility] [address], [address] [place] [address] Marcos Santana APRN [address] [place] [address],[address] [place] [address] documented as of this encounter Visit Diagnoses Not on filedocumented in this encounter Care Teams Home Paraprofessional Relationship Specialty Start Date End Date Julio Samayoa APRN [address] [place] [address] PCP - General Family Practice 01/20/17 01/19/18 Tiffanie Avery MD [address] [place] [address] PCP - General Family Medicine 01/20/18 10/28/23 Tiffanie Avery MD [address] [place] [address] PCP - General Family Medicine 12/22/23 Stew Hankins III, MD Gastroenterology 10/25/10 Kirby Kaur MD [address] [place] [address] [address] [place], [place] [address] Family Medicine 12/23/11 Nicholas Cristobal MD [address] [place] [address] [place] [address] Gastroenterology 08/08/14 Charlie Ayala, ALKA [address] [place] [address] Physician Design Consultant 02/05/15 Sully Castillo LPN 02/22/15 [place] [address] [place] [address] [place] [address] Pulmonary Disease 01/19/18 Sindi Mcfarland MA 09/22/18 Mao Powell MD [address] [place] [address] [place] [address] Orthopedic Surgery 05/22/21 Jeff Douglas MD [address] [place] [address] Orthopedic Surgery 07/18/21 documented as of this encounter
--- OUTSIDE RECORDS SUMMARY | 2024-11-28 11:14 | XMS_ITS | Encounter Summary ---
Author Organization [facility] Address [address] [place] [address] Care Team Providers Care Retail Support Associate Name Role Phone Abhi Ruiz MD Primary Care Provider Unavailabl e Rikki Painter DO Primary Care Provider [phone] Nhi AZUL MD, Morris Wilson Unavailable Haven vailable Louie Purdy MD Primary Care Provider [phone] Kirby Kaur MD Unavailable [phone] Maricruz Burris APRN Primary Care Provide r Nicholas Cristobal MD Unavailable Doctor, No Primary Care Provider UnavailCharlie Greenberg PA-C Unavailable [phone] Sully Castillo LPN Unavailable Unavailable Julio Samayoa APRN Primary Care Provider [phone] Julio Samayoa APRN Primary Care Provider [phone] Florin Vicente MD Unavailable Tiffanie Avery MD Primary Care Provider [phone] Sindi Mcfarland MA Unavailable Unavailable Mao Powell MD Unavailable [phone] Jeff Douglas MD Unavailable [phone] Tiffanie Avery MD Primary Care Provider Encounter Details Date Type Department Care Team (Late st Contact Info) Description 01/21/2003 Historical Encounter Global Blu Ruiz Social History Tobacco Use Types Packs/Day Years Used Date Smoking Tobacco: Never Assessed Sex and Gender Information Value Date Recorded Sex Assigned at Not on file Legal Sex Male 9:36 PM EST Gender Identity Not on file Sexual Orientation Not on file documented as of this encounter Plan of Treatment Upcoming Encounters Date Type Department Care Team ([facility] st Contact Info) Description 12/05/2024 9:30 AM EDT Office Visit [facility] [address], [address] [place] [address] Marcos Santana APRN [address] [place] [address],[address] [place], [place] [id number] documented as of this encounter Visit Diagnoses Not on filedocumented in this encounter Care Teams Retail Support Associate Relationship Specialty Start Date End Date Abhi Ruiz MD PCP - General 12/29/07 10/04/09 Rikki Painter DO [address] [place] [address] PCP - General Family Medicine 10/05/09 06/12/11 Louie Purdy MD [address] [place] [address] PCP - General Family Medicine 06/13/11 07/05/14 Maricruz Burris PULP TESTER [address] [place] [address] PCP - General Nurse Practitioner 07/06/14 11/29/14 Otilia Abreu [place] PCP - General Family Medicine 11/30/14 04/25/15 Julio Samayoa APRN [address] [place] [address] PCP - General nurse practitioner adult care 04/26/15 01/19/17 Julio Samayoa, YANNICK [address] [place] [address] PCP - General Family Practice 01/20/17 01/19/18 Tiffanie Avery MD [address] [place] [address] PCP - General Family Medicine 01/20/18 10/28/23 Tiffanie Avery MD [address] [place] [address] PCP - General Family Medicine 12/22/23 Stew Hankins III, MD Gastroenterology 10/25/10 Kirby Kaur MD [address] [place] [address] Family Medicine 12/23/11 Nicholas Cristobal MD [address] [place] [address] Gastroenterology 08/08/14 Charlie Ayala, PA-C [address] [place] [address] Physician Post Hole Digger 02/05/15 Sully Castillo LPN 02/22/15 Florin Vicente MD [address] [place] [address] [place] [address] Pulmonary Disease 01/19/18 Sindi Mcfarland MA 09/22/18 Mao Powell MD [address] [place] [address] Orthopedic Surgery 05/22/21 Jeff Douglas MD [address] [place], [place] [address] Orthopedic Surgery 07/18/21 documented as of this encounter
--- OUTSIDE RECORDS SUMMARY | 2024-11-28 11:14 | XMS_ITS | Encounter Summary ---
Author Organization [facility] Address [address] [place] [address] Care Team Providers Care Proposal Review Analyst Name Role Phone Nhi AZUL MD, Morris Wilson Unavailable Haven Kirby Bustamante MD Unavailable [phone] Maricruz Burris APRN Primary Care Provide r Nicholas Cristobal MD Unavailable Doctor, No Primary Care Provider UnavailCharlie Greenberg PA-C Unavailable Sully Castillo LPN Unavailable Unavailable Julio Samayoa APRN Primary Care Provider Julio Samayoa APRN Primary Care Provider Florin Vicente MD Unavailable Tiffanie Avery MD Primary Care Provider [phone] Sindi Mcfarland MA Unavailable Unavailable Mao Powell MD Unavailable [phone] Jeff Douglas MD Unavailable Tiffanie Avery MD Primary Care Provider [phone] Reason for Visit * Reason Onset Date Comments Phone Advice For Symptoms 08/08/2014 please call Lambert from [facility] primary care to schedule pt for colon screening [phone] Encounter Details Date Type Department Care Team (Late st Contact Info) Description 08/08/2014 Telephone [facility] [address] [place] [address] [address] [place] [address] Nicholas Cristobal MD [address] [place] [address] [address] [place] [address] Phone Advice For Symptoms (please call Lambert from [facility] primary care to schedule pt for colon screening [phone]) Social History Tobacco Use Types Packs/Day Years [...] encounter Miscellaneous Notes * Telephone Encounter - Kelsey Solis - 08/15/2014 12:29 PM EDT Patient is scheduled for colonoscopy on 09/11/14. Patient notified. documented in this encounter Plan of Treatment Upcoming Encounters Date Type Department Care Team (Late st Contact Info) Description 12/05/2024 9:30 AM EDT Office Visit [facility] [address], [address] [place] [address] Marcos Santana APRN [address] [place] [address] [address] [place], [place] [address] documented as of this encounter Visit Diagnoses Not on filedocumented in this encounter Care Teams Proposal Review Analyst Relationship Specialty Start Date End Date Maricruz Burris FISH SALTER [address] [place] [address] PCP - General Nurse Practitioner 07/06/14 11/29/14 Otilia Abreu [place] PCP - General Family Medicine 11/30/14 04/25/15 Julio Samayoa APRN [address] [place] [address] PCP - General nurse practitioner adult care 04/26/15 01/19/17 Julio Samayoa APRN [address] [place], [place] [address] PCP - General Family Practice 01/20/17 01/19/18 Tiffanie Avery MD [address] [place] [address] PCP - General Family Medicine 01/20/18 10/28/23 Tiffanie Avery MD [address] [place] [id number] PCP - General Family Medicine 12/22/23 Stew Hankins III, MD Gastroenterology 10/25/10 Kirby Kaur MD [address] [place], [place] [address] [place] [address] Family Medicine 12/23/11 Nicholas Cristobal MD [address] [place] [address] [address] [place] [address] Gastroenterology 08/08/14 Charlie Ayala, PAMindiC [address] [place] [address] [address] [place] [address] Physician Elevator Troubleshooter 02/05/15 Sully Castillo LPN 02/22/15 Florin Vicente MD [address] [place] [address] [address] [place] [address] Pulmonary Disease 01/19/18 Sindi Mcfarland MA 09/22/18 Mao Powell MD [address] [place] [address] Orthopedic Surgery 05/22/21 Jeff Douglas MD [address] [place] [address] Orthopedic Surgery 07/18/21 documented as of this encounter
--- OUTSIDE RECORDS SUMMARY | 2024-11-28 11:15 | XMS_ITS | Encounter Summary ---
Author Organization [facility] Address [address] [id number] Care Team Providers Care Cloud Engagement Partner Name Role Phone Nhi AZUL MD, Morris Wilson Unavailable Haven Kirby Bustamante MD Unavailable [phone] Nicholas Cristobal MD Unavailable Doctor, No Primary Care Provider UnavailCharlie Greenberg PA-C Unavailable [phone] Sully Castillo LPN Unavailable Unavailable Julio Samayoa APRN Primary Care Provider [phone] Julio Samayoa APRN Primary Care Provider Florin Vicente MD Unavailable Tiffanie Avery MD Primary Care Provider Sindi Mcfarland MA Unavailable Unavailable Mao Powell MD Unavailable [phone] Jeff Douglas MD Unavailable [phone] Tiffanie Avery MD Primary Care Provider [phone] Reason for Referral * Consultation (Urgent) - Canceled Specialty Diagnoses / Procedures Referred By Esperanza de Referred To Contact Gastroenterology Diagnoses Anemia, unspecified anemia type Blood in stool Hanny Hartley APRN [address] [place] [address] Phone: tel: fax: Referral ID Status Reason Start Date Expiration Date V isits Requested Visits Authorized [id number] Canceled 02/02/2015 1 1 Encounter Details Date Type Department Care Team (Late st Contact Info) Description 02/02/2015 Orders Only [facility] [address] [place] [address] Hanny Hartley APRN [address] [place] [address] Anemia, unspecified anemia type (Primary Dx); Blood in stool Social History Tobacco Use Types Packs/Day Years Used Date Smoking Tobacco: Former Cigarettes 1 20 1 - 03/15/1989 Smokeless Tobacco: Never Alcohol Use Standard Drinks/Week [...] AM EDT Office Visit [facility] [address] [place] [address] Marcos Santana APRN [address] [place], [place] [address] [place], [place] [id number] Scheduled Referrals Name Type Priority Associated Diagnoses Order Schedule Ambulatory referral to Gastroenterology Outpatient Referral Routine Anemia, unspecified anemia type Blood in stool Ordered: 02/02/2015 documented as of this encounter Visit Diagnoses Diagnosis Anemia, unspecified anemia type- Primary Blood in stool documented in this encounter Care Teams Cloud Engagement Partner Relationship Specialty Start Date End Date Otilia Abreu [place] PCP - General Family Medicine 11/30/14 04/25/15 Julio Samayoa APRN [address] [place] [address] PCP - General nurse practitioner adult care 04/26/15 01/19/17 Julio Samayoa APRN [address] [place] [address] PCP - General Family Practice 01/20/17 01/19/18 Tiffanie Avery MD [address] [place] [address] PCP - General Family Medicine 01/20/18 10/28/23 Tiffanie Avery MD [address] [place] [address] PCP - General Family Medicine 12/22/23 Stew Hankins III, MD Gastroenterology 10/25/10 Kirby Kaur MD [address] [place] [address] [address] [place] [address] Family Medicine 12/23/11 Nicholas Cristobal MD [address] [place] [address] [address] [place] [address] Gastroenterology 08/08/14 Charlie Ayala, TORIC [address] [place] [address] [address] [place] [address] Physician Machinery Erector 02/05/15 Sully Castillo LPN 02/22/15 [place] [address] [place] [address] [address] [place] [address] Pulmonary Disease 01/19/18 Sindi Mcfarland MA 09/22/18 Mao Powell MD [address] [place] [address] [address] [place] [address] Orthopedic Surgery 05/22/21 Jeff Douglas MD [address] [place] [address] Orthopedic Surgery 07/18/21 documented as of this encounter
--- OUTSIDE RECORDS SUMMARY | 2024-11-28 11:15 | XMS_ITS | Encounter Summary ---
Author Organization [facility] Address [address] [place] [address] Care Team Providers Care Jewelry Casting Model Maker Apprentice Name Role Phone Abhi Ruiz MD Primary Care Provider Unavailabl e Rikki Painter DO Primary Care Provider [phone] Nhi AZUL MD, Morris Wilson Unavailable Haven vailable Louie Purdy MD Primary Care Provider [phone] Kirby Kaur MD Unavailable [phone] Maricruz Burris APRN Primary Care Provide r Nicholas Cristobal MD Unavailable Doctor, No Primary Care Provider UnavailCharlie Greenberg PA-C Unavailable [phone] Sully Castillo LPN Unavailable Unavailable Julio Samayoa APRN Primary Care Provider [phone] Julio Samayoa APRN Primary Care Provider [phone] Florin Vicente MD Unavailable Tiffanie Avery MD Primary Care Provider [phone] Sindi Mcfarland MA Unavailable Unavailable Mao Powell MD Unavailable [phone] Jeff Douglas MD Unavailable [phone] Tiffanie Avery MD Primary Care Provider Encounter Details Date Type Department Care Team (Late st Contact Info) Description 02/23/2000 Historical Encounter Global lBu Ruiz Social History Tobacco Use Types Packs/Day Years Used Date Smoking Tobacco: Never Assessed Sex and Gender Information Value Date Recorded Sex Assigned at Not on file Legal Sex Male 9:36 PM EST Gender Identity Not on file Sexual Orientation Not on file documented as of this encounter Plan of Treatment Upcoming Encounters Date Type Department Care Team ([facility] st Contact Info) Description 12/05/2024 9:30 AM EDT Office Visit [facility] [address], [address] [place] [address] Marcos Santana APRN [address] [place] [address],[address] [place], [place] [address] documented as of this encounter Visit Diagnoses Not on filedocumented in this encounter Care Teams Jewelry Casting Model Maker Apprentice Relationship Specialty Start Date End Date Abhi Ruiz MD PCP - General 12/29/07 10/04/09 Rikki Painter DO [address] [place] [address] PCP - General Family Medicine 10/05/09 06/12/11 Louie Purdy MD [address] [place] [address] PCP - General Family Medicine 06/13/11 07/05/14 Maricruz Burris HACKSAW INSPECTOR [address] [place] [address] PCP - General Nurse Practitioner 07/06/14 11/29/14 Otilia Abreu [place] PCP - General Family Medicine 11/30/14 04/25/15 Julio Samayoa APRN [address] [place] [address] PCP - General nurse practitioner adult care 04/26/15 01/19/17 Julio Samayoa, YANNICK [address] [place] [address] PCP - General Family Practice 01/20/17 01/19/18 Tiffanie Avery MD [address] [place] [address] PCP - General Family Medicine 01/20/18 10/28/23 Tiffanie Avery MD [address] [place] [address] PCP - General Family Medicine 12/22/23 Stew Hankins III, MD Gastroenterology 10/25/10 Kirby Kaur MD [address] [place] [address] Family Medicine 12/23/11 Nicholas Cristobal MD [address] [place] [address] Gastroenterology 08/08/14 Charlie Ayala, PA-C [address] [place] [address] Physician Ruching Machine Operator 02/05/15 Sully Castillo LPN 02/22/15 Florin Vicente MD [address] [place] [address] [place] [address] Pulmonary Disease 01/19/18 Sindi Mcfarland MA 09/22/18 Mao Powell MD [address] [place] [address] Orthopedic Surgery 05/22/21 Jeff Douglas MD [address] [place], [place] [address] Orthopedic Surgery 07/18/21 documented as of this encounter
--- OUTSIDE RECORDS SUMMARY | 2024-11-28 11:15 | XMS_ITS | Encounter Summary ---
Author Organization [facility] Address [address] [place] [address] Care Team Providers Care Material Control Analyst Name Role Phone Nhi AZUL MD, Morris Wilson Unavailable Haven Louie Pace MD Primary Care Provider [phone] Kirby Kaur MD Unavailable [phone] Maricruz Burris APRN Primary Care Provide r Nicholas Cristobal MD Unavailable Doctor, No Primary Care Provider UnavailCharlie Greenberg PA-C Unavailable [phone] Sully Castillo LPN Unavailable Unavailable Julio Samayoa APRN Primary Care Provider [phone] Julio Samayoa APRN Primary Care Provider [phone] Florin Vicente MD Unavailable Tiffanie Avery MD Primary Care Provider [phone] Sindi Mcfarland MA Unavailable Unavailable Mao Powell MD Unavailable [phone] Jeff Douglas MD Unavailable [phone] Tiffanie Avery MD Primary Care Provider [phone] Reason for Visit * Reason Onset Date Comments Medications Refill 09/02/2011 Encounter Details Date Type Department Care Team (Late st Contact Info) Description 09/02/[address] [facility] [address] [place] [address] Louie Purdy MD [address] [place] [address] DM (diabetes mellitus) Social History Tobacco Use Types Packs/Day Years [...] encounter Miscellaneous Notes * Telephone Encounter - Lupe Molina - 09/02/2011 11:29 AM EDT Needs documented in this encounter Plan of Treatment Upcoming Encounters Date Type Department Care Team (Late st Contact Info) Description 12/05/2024 9:30 AM EDT Office Visit [facility] [address] [place] [address] Marcos Santana APRN [address] [place] [address] [place] [address] documented as of this encounter Visit Diagnoses Diagnosis DM (diabetes mellitus) ([facility]) Type II or unspecified type diabetes mellitus without mention of complication, not stated as uncontrolled documented in this encounter Care Teams Material Control Analyst Relationship Specialty Start Date End Date Louie Purdy MD [address] [place] [address] PCP - General Family Medicine 06/13/11 07/05/14 Maricruz Burris APRN [address] [place] [address] PCP - General Nurse Practitioner 07/06/14 11/29/14 [facility] [place] [facility] - General Family Medicine 11/30/14 04/25/15 Julio Samayoa APRN [address] [place] [address] PCP - General nurse practitioner adult care 04/26/15 01/19/17 SamayoaJulio arreola APRN [address] [place] [address] PCP - General Family Practice 01/20/17 01/19/18 Tiffanie Avery MD [address] [place] [address] PCP - General Family Medicine 01/20/18 10/28/23 Tiffanie Avery MD [address] [place] [address] PCP - General Family Medicine 12/22/23 Stew Hankins III, MD Gastroenterology 10/25/10 Kirby Kaur MD [address] [address] [place] [address] Family Medicine 12/23/11 Nicholas Cristobal MD [address] [place] [address] Gastroenterology 08/08/14 Charlie Ayala, ALKA [address] [place] [address] Physician School Bus Technician 02/05/15 Sully Castillo LPN 02/22/15 Florin Vicente MD [address] [facility] [address] [place] [address] Pulmonary Disease 01/19/18 Sindi Mcfarland MA 09/22/18 Mao Powell MD [address] [place] [address] [address] Orthopedic Surgery 05/22/21 Jeff Douglas MD [address] [place] [address] [address] [address] Orthopedic Surgery 07/18/21 documented as of this encounter
--- OUTSIDE RECORDS SUMMARY | 2024-11-28 11:15 | XMS_ITS | Encounter Summary ---
Author Organization [facility] Address [address] [place] [address] Care Team Providers Care Tonal Regulator Name Role Phone Nhi AZUL MD, Morris Wilson Unavailable Haven Kirby Bustamante MD Unavailable Nicholas Cristobal MD Unavailable Doctor, No Primary Care Provider UnavailCharlie Greenberg PA-C Unavailable Sully Castillo LPN Unavailable Unavailable Julio Samayoa APRN Primary Care Provider [phone] Julio Samayoa APRN Primary Care Provider Florin Vicente MD Unavailable Tiffanie Avery MD Primary Care Provider [phone] Sindi Mcfarland MA Unavailable Unavailable Mao Powell MD Unavailable Jeff Douglas MD Unavailable Tiffanie Avery MD Primary Care Provider [phone] Reason for Visit * Reason Onset Date Comments Medication Not Covered by Insurance 04/17/2015 Encounter Details Date Type Department Care Team (Late st Contact Info) Description 04/17/2015 Telephone [facility] [address] [place] [address] Doctor, No [place], [place] Medication Not Covered by Insurance Social History Tobacco Use Types Packs/Day Years [...] encounter Miscellaneous Notes * Telephone Encounter - Gi Viera - 04/17/2015 11:05 AM EST Patient called stating the Viagra did not help, he also said that insurance does not want to pay for the Viagra. He said the insurance will pay for Cialis and wants to know if you will send him a prescription to [facility]. documented in this encounter Plan of Treatment Upcoming Encounters Date Type Department Care Team (Late st Contact Info) Description 12/05/2024 9:30 AM EDT Office Visit [facility] [address], [address] [place] [address] Marcos Santana APRN [address] [place] [address],[address] [place] [address] documented as of this encounter Visit Diagnoses Not on filedocumented in this encounter Care Teams Tonal Regulator Relationship Specialty Start Date End Date Doctor, [facility] [place] PCP - General Family Medicine 11/30/14 04/25/15 Julio Samayoa APRN [address] [place] [address] PCP - General nurse practitioner adult care 04/26/15 01/19/17 Julio Samayoa APRN [address] [place] [address] PCP - General Family Practice 01/20/17 01/19/18 Tiffanie Avery MD [address] [place] [address] PCP - General Family Medicine 01/20/18 10/28/23 Tiffanie Avery MD [address] [facility] [place] [address] PCP - General Family Medicine 12/22/23 Stew Hankins III, MD Gastroenterology 10/25/10 Kirby Kaur MD [address] [place] [address] Family Medicine 12/23/11 Nicholas Cristobal MD [address] [place] [address] Gastroenterology 08/08/14 Charlie Ayala PA-C [address] [place] [address] Physician Bunch Breaker Machine Operator 02/05/15 Sully Castillo LPN 02/22/15 [place] [address] [place] [address] [address] Pulmonary Disease 01/19/18 Sindi Mcfarland MA 09/22/18 Mao Powell MD [address] [place] [address] Orthopedic Surgery 05/22/21 Jeff Douglas MD [address] [place] [address] Orthopedic Surgery 07/18/21 documented as of this encounter
--- OUTSIDE RECORDS SUMMARY | 2024-11-28 11:15 | XMS_ITS | Encounter Summary ---
Author Organization [facility] Address [address] [place] [address] Care Team Providers Care Chicken And Fish Butcher Name Role Phone Nhi AZUL MD, Stew Gonzales Unavailable Haven Kirby Bustamante MD Unavailable Nicholas Cristobal MD Unavailable Charlie Ayala PA-C Unavailable Sully Castillo LPN Unavailable Unavailable Florin Vicente MD Unavailable Sindi Mcfarland MA Unavailable Unavailable Mao Powell MD Unavailable [phone] Jeff Douglas MD Unavailable [phone] Tiffanie Avery MD Primary Care Provider [phone] Reason for Visit * Reason Onset Date Comments Other 12/03/2023 Med Request Encounter Details Date Type Department Care Team (Late st Contact Info) Description 12/03/2023 Telephone [facility] [address] [place] [address] [place] [address] Nila Gregory MD [address] [facility] [place] [address] Other (Med Request) Social History Tobacco Use Types Packs/Day Years Used Date Smoking Tobacco: Former Cigarettes 1 20 1 - 03/15/1986 Smokeless Tobacco: Never Alcohol Use Standard Drinks/Week Comments No 0 (1 standard drink = 0.6 oz pur e alcohol) PHQ-2 Answer Date Recorded PHQ-2 SCORE 0 11/13/2023 Sex and Gender Information Value Date Recorded Sex Assigned at Not on file Legal Sex Male 9:36 PM EST Gender Identity Not on file Sexual Orientation Not on file documented as of this encounter Miscellaneous Notes * Telephone Encounter - An Lewis LPN - 12/08/2023 2:40 PM EDT Pt notified * Telephone Encounter - Yoselin Gonzalez - 12/03/2023 1:43 PM EDT Patient called stating he has been taking zolpidem (AMBIEN) 10 mg tablet for a long time, and he can't go without it. He has an appointment to establish with Nila on 12/28 but he is out of this medication. He was request to get enough filled until he sees her. He stated OTC meds are not helping Please advise. documented in this encounter Plan of Treatment Upcoming Encounters Date Type Department Care Team (Late st Contact Info) Description 12/05/2024 9:30 AM EDT Office Visit [facility] [address] [place] [address] Marcos Santana APRN [address] [place], [place] [address] [place] [address] documented as of this encounter Visit Diagnoses Not on filedocumented in this encounter Additional Health Concerns Assessment Noted Time PHQ-9 Depression Total Score: 0 04/01/20 19 2:31 PM EST documented as of this encounter Care Teams Chicken And Fish Butcher Relationship Specialty Start Date End Date Tiffanie Avery MD [address] [place] [address] PCP - General Family Medicine 12/22/23 Stew Hankins III, MD Gastroenterology 10/25/10 Kirby Kaur MD [address] [place] [address] [place] [address] Family Medicine 12/23/11 Nicholas Cristobal MD [address] [place] [address] [address] [place] [address] Gastroenterology 08/08/14 Charlie Ayala, TORIC [address] [place] [address] [address] [place] [address] Physician Guardian Family Member 02/05/15 Sully Castillo LPN 02/22/15 [place] [address] [place] [address] [place] [address] Pulmonary Disease 01/19/18 Sindi Mcfarland MA 09/22/18 Mao Powell MD [address] [place] [address] [address] Orthopedic Surgery 05/22/21 Jeff Douglas MD [address] [place] [address] [address] Orthopedic Surgery 07/18/21 documented as of this encounter
--- OUTSIDE RECORDS SUMMARY | 2024-11-28 11:15 | XMS_ITS | Encounter Summary ---
Author Organization [facility] Address [address] [place] [address] Care Team Providers Care Electric Train Driver Name Role Phone Nhi AZUL MD, Morris [...] Care Team (Late st Contact Info) Description 04/09/2015 Telephone [facility] [address] [place] [address] [address] [place] [address] Charlie Ayala PA-C [address] [place], [place] [id number] Social History Tobacco Use Types Packs/Day Years [...] Telephone Encounter - Sully Castillo LPN - 04/17/2015 10:28 AM EST Spoke with patient he verbalized understanding. * Telephone Encounter - Sully Castillo LPN - 04/17/2015 9:11 AM EST Left voice message. * Telephone Encounter - Ervin Ayala - 04/10/2015 8:09 AM EST Patient attempted to be called by nurse, but message left. * Telephone Encounter - An [place] - 04/09/2015 4:58 PM EST Please call with lab results. documented in this encounter Plan of Treatment Upcoming Encounters Date Type Department Care Team (Late st Contact Info) Description 12/05/2024 9:30 AM EDT Office Visit [facility] [address], [address] [place] [address] Marcos Santana APRN [address] [place] [address],[address] [place] [address] documented as of this encounter Visit Diagnoses Not on filedocumented in this encounter Care Teams Electric Train Driver Relationship Specialty Start Date End Date DoctorOtilia [place] PCP - General Family Medicine 11/30/14 04/25/15 Julio Samayoa APRN [address] [place], [place] [id number] PCP - General nurse practitioner adult care 04/26/15 01/19/17 Julio Samayoa APRN [address] [place] [address] PCP - General Family Practice 01/20/17 01/19/18 Tiffanie Avery MD [address] [place] [id number] PCP - General Family Medicine 01/20/18 10/28/23 Tiffanie Avery MD [address] [place] [id number] PCP - General Family Medicine 12/22/23 Stew Hankins III, MD Gastroenterology 10/25/10 Kirby Kaur MD [address] [place] [address] [address] [place] [address] Family Medicine 12/23/11 Nicholas Cristobal MD [address] [address] [place], [place] [address] Gastroenterology 08/08/14 Charlie Ayala, TORIC [address] [place], [place] [address] Physician Futures Trader 02/05/15 Sully Castillo LPN 02/22/15 [place] [address] [place] [address] [address] [place], [place] [address] Pulmonary Disease 01/19/18 Sindi Mcfarland MA 09/22/18 Mao Powell MD [address] [place] [address] Orthopedic Surgery 05/22/21 Jeff Douglas MD [address] [place] [address] Orthopedic Surgery 07/18/21 documented as of this encounter
--- OUTSIDE RECORDS SUMMARY | 2024-11-28 11:15 | XMS_ITS | Encounter Summary ---
Author Organization [facility] Address [address] [place] [address] Care Team Providers Care Envelope Maker Name Role Phone Abhi Ruiz MD Primary Care Provider Unavailabl e Rikki Painter DO Primary Care Provider [phone] Nhi AZUL MD, [place] Unavailable Haevn vailable Louie Purdy MD Primary Care Provider [phone] Kirby Kaur MD Unavailable [phone] Maricruz Burris APRN Primary Care Provide r Nicholas Cristobal MD Unavailable Doctor, No Primary Care Provider UnavailCharlie Greenberg PA-C Unavailable [phone] Sully Castillo LPN Unavailable Unavailable Julio Samayoa APRN Primary Care Provider [phone] Julio Samayoa APRN Primary Care Provider [phone] Florin Vicente MD Unavailable Tiffanie Avery MD Primary Care Provider [phone] Sindi Mcfarland MA Unavailable Unavailable Mao [place] MD Unavailable [phone] Jeff Douglas MD Unavailable [phone] Tiffanie Avery MD Primary Care Provider [phone] Encounter Details Date Type Department Care Team (Late st Contact Info) Description 10/15/2000 Historical Encounter Global Abhi Ruiz MD Social [...] 9:30 AM EDT Office Visit [facility] [address], [address] [place] [address] Marcos Santana APRN [address] [place] [address],[address] [place], [place] [id number] documented as of this encounter Visit Diagnoses Not on filedocumented in this encounter Care Teams Envelope Maker Relationship Specialty Start Date End Date Abhi Ruiz MD PCP - General 12/29/07 10/04/09 Rikki Painter DO [address] [place] [address] PCP - General Family Medicine 10/05/09 06/12/11 Louie Purdy MD [address] [place] [address] PCP - General Family Medicine 06/13/11 07/05/14 Maricruz Burris APRN [address] [place] [address] PCP - General Nurse Practitioner 07/06/14 11/29/14 Otilia Abreu [place] PCP - General Family Medicine 11/30/14 04/25/15 Julio Samayoa APRN [address] [place] [address] PCP - General nurse practitioner adult care 04/26/15 01/19/17 Julio Samayoa APRN [address] [place], [place] [id number] PCP - General Family Practice 01/20/17 01/19/18 Tiffanie Avery MD [address] [place] [address] PCP - General Family Medicine 01/20/18 10/28/23 Tiffanie Avery MD [address] [place] [address] PCP - General Family Medicine 12/22/23 Stew Hankins III, MD Gastroenterology 10/25/10 Kirby Kaur MD [address] [place] [address] Family Medicine 12/23/11 Nicholas Cristobal MD [address] [place] [address] Gastroenterology 08/08/14 Charlie Ayala, PAMindiC [address] [place] [address] Physician Ortho Assistant 02/05/15 Sully Castillo LPN 02/22/15 Florin Vicente MD [address] [place] [address] [place] [address] Pulmonary Disease 01/19/18 Sindi Mcfarland MA 09/22/18 Mao [place] MD [address] [place] [address] Orthopedic Surgery 05/22/21 Jeff [place] MD [address] [place] [address] [place] [address] Orthopedic Surgery 07/18/21 documented as of this encounter
--- OUTSIDE RECORDS SUMMARY | 2024-11-28 11:15 | XMS_ITS | Encounter Summary ---
Author Organization [facility] Address [address] [place] [address] Care Team Providers Care Sanitarian Aide Name Role Phone Nhi AZUL MD, [place] Unavailable Haven Kirby Bustamante MD Unavailable [phone] Nicholas Cristobal MD Unavailable Doctor, No Primary Care Provider UnavailCharlie Greenberg PA-C Unavailable Sully Castillo LPN Unavailable Unavailable Julio Samayoa APRN Primary Care Provider [phone] Julio Samayoa APRN Primary Care Provider [phone] Florin Vicente MD Unavailable Tiffanie Avery MD Primary Care Provider [phone] Sindi Mcfarland MA Unavailable Unavailable Mao [place] MD Unavailable [phone] Jeff [place] MD Unavailable [phone] Tiffanie Avery MD Primary Care Provider [phone] Reason for Visit * Reason Onset Date Comments Phone Advice For Symptoms 04/03/2015 pt nee ds labs to check anemia Encounter Details Date Type Department Care Team (Late st Contact Info) Description 04/03/2015 Telephone [facility] [address] [place] [address] [address] [place] [address] Charlie Ayala PA-C [address] [place], [place] [phone] Phone Advice For Symptoms (pt needs labs to check anemia ) Social History Tobacco Use Types Packs/Day [...] encounter Miscellaneous Notes * Telephone Encounter - Ervin Ayala - 04/03/2015 1:19 PM EST Order placed. documented in this encounter Plan of Treatment Upcoming Encounters Date Type Department Care Team ([facility] st Contact Info) Description 12/05/2024 9:30 AM EDT Office Visit [facility] [address], [address] [place] [address] Marcos Santana, SHOE TREER [address] [place], [place] [address] [place] [address] documented as of this encounter Results * (ABNORMAL) CBC (04/05/2015 12:03 PM EST) WBC 7.1 3.4 - 11.3 10*3/uL 04/05/2015 4:22 PM EST [facility] RBC 3.90(L) 4.32 - 5.64 10*6/uL 04/05/2015 4:22 PM EST [facility] HGB 12.6(L) 13.0 - 16.7 g/dL 04/05/2015 4:22 PM EST [facility] HCT 38.6 38.5 - 49.3 % 04/05/2015 4:22 PM EST [facility] MCV 98.9(H) 82.3 - 94.1 fL 04/05/2015 4:22 PM EST [facility] MCH 32.4(H) 27.0 - 31.1 pg 04/05/2015 4:22 PM EST [facility] MCHC 32.8 32.6 - 34.9 g/dL 04/05/2015 4:22 PM EST [facility] RDW 13.4 11.5 - 14.5 % 04/05/2015 4:22 PM EST [facility] MPV 8.5 6.9 - 9.9 fL 04/05/2015 4:22 PM EST [facility] Platelet Cnt 233 146 - 374 10*3/uL 04/05/2015 4:22 PM EST [facility] Neutrophils 60.4 48.8 - 75.9 % 04/05/2015 4:22 PM EST [facility] Lymphocytes 30.3 16.3 - 43.9 % 04/05/2015 4:22 PM EST [facility] Monocytes 6.1 2.1 - 13.3 % 04/05/2015 4:22 PM EST [facility] Eosinophils 2.9 0.3 - 5.0 % 04/05/2015 4:22 PM EST [facility] Basophils 0.3 0.0 - 1.1 % 04/05/2015 4:22 PM EST [facility] Neutrophils Abs 4.3 1.6 - 8.5 10*3/uL 04/05/2015 4:22 PM EST [facility] Lymphocytes Abs 2.2 0.6 - 4.9 10*3/uL 04/05/2015 4:22 PM EST [facility] Monocytes Abs 0.4 0.0 - 1.4 10*3/uL 04/05/2015 4:22 PM EST [facility] Eosinophils Abs 0.2 0.0 - 0.5 10*3/uL 04/05/2015 4:22 PM EST [facility] Basophils Abs 0.0 0.0 - 0.1 10*3/uL 04/05/2015 4:22 PM EST [facility] 04/05/2015 12:0 3 PM EST 04/05/2015 4:13 PM EST us Charlie Ayala PA-C HEMATOLOGY ORDERABLES Final Result [facility] [address] [place] [address] documented in this encounter Visit Diagnoses Diagnosis Iron deficiency- Primary Other disorders of iron metabolism documented in this encounter Care Teams Sanitarian Aide Relationship Specialty Start Date End Date Otilia Abreu [place] PCP - General Family Medicine 11/30/14 04/25/15 Julio Samayoa APRN [address] [place] [address] PCP - General nurse practitioner adult care 04/26/15 01/19/17 Julio Samayoa APRN [address] [place] [address] PCP - General Family Practice 01/20/17 01/19/18 Tiffanie A[place] MD [address] [place] [id number] PCP - General Family Medicine 01/20/18 10/28/23 Tiffanie Avery MD [address] [place] [id number] PCP - General Family Medicine 12/22/23 Stew Hankins III, MD Gastroenterology 10/25/10 Kirby Kaur MD [address] [place], [place] [address] [place] [address] Family Medicine 12/23/11 Nicholas Cristobal MD [address] [place] [address] Gastroenterology 08/08/14 Charlie Ayala PA-C [address] [address] [place], [place] [id number] Physician Supervisor Grading 02/05/15 Sully Castillo LPN 02/22/15 [place] [address] [place] [address] [address] [place], [place] [id number] Pulmonary Disease 01/19/18 Sindi Mcfarland MA 09/22/18 Mao [place] MD [address] [place] [address] Orthopedic Surgery 05/22/21 Jeff [place] MD [address] [place] [address] Orthopedic Surgery 07/18/21 documented as of this encounter
--- OUTSIDE RECORDS SUMMARY | 2024-11-28 11:15 | XMS_ITS | Encounter Summary ---
Author Organization [facility] Address [address] [place] [address] Care Team Providers Care Inspector Optical Instrument Name Role Phone Abhi Ruiz MD Primary Care Provider Unavailabl e Rikki Painter DO Primary Care Provider [phone] Nhi AZUL MD, [place] Unavailable Haven vailable Louie Purdy MD Primary Care Provider [phone] Kirby Kaur MD Unavailable [phone] Maricruz Burris APRN Primary Care Provide r Nicholas Cristobal MD Unavailable Doctor, No Primary Care Provider UnavailCharlie Greenberg PA-C Unavailable [phone] Sully Castillo LPN Unavailable Unavailable Julio Samayoa APRN Primary Care Provider [phone] Julio Samayoa APRN Primary Care Provider [phone] Florin Vicente MD Unavailable Tiffanie Avery MD Primary Care Provider [phone] Sindi Mcfarland MA Unavailable Unavailable Mao [place] MD Unavailable [phone] Jeff Douglas MD Unavailable [phone] Tiffanie Avery MD Primary Care Provider Encounter Details Date Type Department Care Team (Late st Contact Info) Description 12/03/2006 Historical Encounter Global Abhi Ruiz MD Social [...] AM EDT Office Visit [facility] [address], [address] [place] [address] Marcos Santana APRN [address] [place] [address],[address] [place], [place] [phone] documented as of this encounter Visit Diagnoses Not on filedocumented in this encounter Care Teams Inspector Optical Instrument Relationship Specialty Start Date End Date Abhi Ruiz MD PCP - General 12/29/07 10/04/09 Rikki Painter DO [address] [place] [address] PCP - General Family Medicine 10/05/09 06/12/11 Louie Purdy MD [address] [place] [address] PCP - General Family Medicine 06/13/11 07/05/14 Maricruz Burris APRN [address] [place] [address] PCP - General Nurse Practitioner 07/06/14 11/29/14 Otilia Abreu [place] PCP - General Family Medicine 11/30/14 04/25/15 Julio Samayoa APRN [address] [place] [address] PCP - General nurse practitioner adult care 04/26/15 01/19/17 Julio Samayoa APRN [address] [place], [place] [id number] PCP - General Family Practice 01/20/17 01/19/18 Tiffanie Avery MD [address] [place] [address] PCP - General Family Medicine 01/20/18 10/28/23 Tiffanie Avery MD [address] [place] [address] PCP - General Family Medicine 12/22/23 Stew Hankins III, MD Gastroenterology 10/25/10 Kirby Kaur MD [address] [place] [address] Family Medicine 12/23/11 Nicholas Cristobal MD [address] [place] [address] Gastroenterology 08/08/14 Charlie Ayala, PAMindiC [address] [place] [address] Physician Horse Riding Coach Or Instructor 02/05/15 Sully Castillo LPN 02/22/15 Florin Vicente MD [address] [place] [address] [place] [address] Pulmonary Disease 01/19/18 Sindi Mcfarland MA 09/22/18 Mao [place] MD [address] [place] [address] Orthopedic Surgery 05/22/21 Jeff [place] MD [address] [place] [address] [place] [address] Orthopedic Surgery 07/18/21 documented as of this encounter
--- OUTSIDE RECORDS SUMMARY | 2024-11-28 11:15 | XMS_ITS | Encounter Summary ---
Author Organization [facility] Address [address] [place] [address] Care Team Providers Care Digital Traffic Coordinator Name Role Phone Abhi Ruiz MD Primary Care Provider Unavailabl e Rikki Painter DO Primary Care Provider [phone] Nhi AZUL MD, [place] Unavailable Haven vailable Louie Purdy MD Primary Care Provider [phone] Kirby Kaur MD Unavailable [phone] Maricruz Burris APRN Primary Care Provide r Nicholas Cristobal MD Unavailable Doctor, No Primary Care Provider UnavailCharlie Greenberg PA-C Unavailable [phone] Sully Castillo LPN Unavailable Unavailable Julio Samayoa APRN Primary Care Provider [phone] Julio Samayoa APRN Primary Care Provider [phone] Florin Vicente MD Unavailable Tiffanie Avery MD Primary Care Provider [phone] Sindi Mcfarland MA Unavailable Unavailable Mao Powell MD Unavailable [phone] Jeff Douglas MD Unavailable [phone] Tiffanie Avery MD Primary Care Provider [phone] Encounter Details Date Type Department Care Team (Late st Contact Info) Description 03/04/2007 Historical Encounter Global Abhi Ruiz MD Social [...] AM EDT Office Visit [facility] [address], [address] [place] [address] Marcos Santana APRN [address] [place] [address],[address] [place], [place] [id number] documented as of this encounter Visit Diagnoses Not on filedocumented in this encounter Care Teams Digital Traffic Coordinator Relationship Specialty Start Date End Date Abhi Ruiz MD PCP - General 12/29/07 10/04/09 Rikki Paniter DO [address] [place] [address] PCP - General Family Medicine 10/05/09 06/12/11 Louie Purdy MD [address] [place] [address] PCP - General Family Medicine 06/13/11 07/05/14 Maricruz Burris APRN [address] [place] [address] PCP - General Nurse Practitioner 07/06/14 11/29/14 Otilia Abreu [place] PCP - General Family Medicine 11/30/14 04/25/15 Julio Samayoa APRN [address] [place] [address] PCP - General nurse practitioner adult care 04/26/15 01/19/17 Julio Samayoa APRN [address] [place], [place] [id number] PCP - General Family Practice 01/20/17 01/19/18 Tiffanie Avery MD [address] [place] [address] PCP - General Family Medicine 01/20/18 10/28/23 Tiffanie Avery MD [address] [place] [address] PCP - General Family Medicine 12/22/23 Stew Hankins III, MD Gastroenterology 10/25/10 Kirby Kaur MD [address] [place] [address] Family Medicine 12/23/11 Nicholas Cristobal MD [address] [place] [address] Gastroenterology 08/08/14 Charlie Ayala, PAMindiC [address] [place] [address] Physician Dental Aide 02/05/15 Sully Castillo LPN 02/22/15 Florin Vicente MD [address] [place] [address] [place] [address] Pulmonary Disease 01/19/18 Sindi Mcfarland MA 09/22/18 Mao [place] MD [address] [place] [address] Orthopedic Surgery 05/22/21 Jeff [place] MD [address] [place] [address] [place] [address] Orthopedic Surgery 07/18/21 documented as of this encounter
--- OUTSIDE RECORDS SUMMARY | 2024-11-28 11:15 | XMS_ITS | Encounter Summary ---
Author Organization [facility] Address [address] [place] [address] Care Team Providers Care Medical Technical Writer Name Role Phone Nhi AZUL MD, Morris Wilson Unavailable Haven Kirby Bustamante MD Unavailable [phone] Nicholas Cristobal MD Unavailable Charlie Ayala PA-C Unavailable [phone] Sully Castillo LPN Unavailable Unavailable Florin Vicente MD Unavailable Sindi Mcfarland MA Unavailable Unavailable Mao Powell MD Unavailable Jeff Douglas MD Unavailable [phone] Tiffanie Avery MD Primary Care Provider [phone] Encounter Details Date Type Department Care Team (Late st Contact Info) Description 05/10/2024 Orders Only [facility] [address] [place] [address] Julio Samayoa APRN [address] [place] [address] 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 No 12/29/2023 Housing Stability Vital Sign Answer Milan e Recorded In the last 12 months, was t here a time when you were not able to pay the mortgage or rent on time? No 05/10/2024 In the past 12 months, how m any times have you moved where you were living? 0 05/10/2024 At any time in the past 12 [facility], were you homeless or living in a senior care (including now)? 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 Type 2 diabetes mellitus without complication, unspecified whether termite treater insulin use (HCC) documented in this encounter Additional Health Concerns Assessment Noted Time PHQ-9 Depression Total Score: 0 04/01/20 19 2:31 PM EST documented as of this encounter Care Teams Medical Technical Writer Relationship Specialty Start Date End Date Tiffanie Avery MD [address] [place] [address] PCP - General Family Medicine 12/22/23 Stew Hankins III, MD Gastroenterology 10/25/10 Kirby Kaur MD [address] [place] [address] [address] [place] [address] Family Medicine 12/23/11 Nicholas Cristobal MD [address] [place] [address] Gastroenterology 08/08/14 Charlie Ayala, PAMindiC [address] [place] [address] Physician Electroless Plater 02/05/15 Sully Castillo LPN 02/22/15 Florin Vicente MD [address] [place] [address] Pulmonary Disease 01/19/18 Sindi Mcfarland MA 09/22/18 Mao Powell MD [address] [place] [address] [address] Orthopedic Surgery 05/22/21 Jeff Douglas MD [address] [place] [address] [address] Orthopedic Surgery 07/18/21 documented as of this encounter
--- OUTSIDE RECORDS SUMMARY | 2024-11-28 11:15 | XMS_ITS | Encounter Summary ---
Author Organization [facility] Address [address] [place] [address] Care Team Providers Care Securities Adviser Name Role Phone Abhi Ruiz MD Primary Care Provider Unavailabl e Rikki Painter DO Primary Care Provider [phone] Nhi AZUL MD, Morris Wilson Unavailable Haven vailable Louie Purdy MD Primary Care Provider [phone] Kirby Kaur MD Unavailable [phone] Maricruz Burris APRN Primary Care Provide r Nicholas Cristobal MD Unavailable Doctor, No Primary Care Provider UnavailCharlie Greenberg PA-C Unavailable [phone] Sully Castillo LPN Unavailable Unavailable Julio Samayoa APRN Primary Care Provider [phone] Julio Samayoa APRN Primary Care Provider [phone] Florin Vicente MD Unavailable Tiffanie Avery MD Primary Care Provider [phone] Sindi Mcfarland MA Unavailable Unavailable Mao Powell MD Unavailable [phone] Jeff Douglas MD Unavailable [phone] Tiffanie Avery MD Primary Care Provider Encounter Details Date Type Department Care Team (Late st Contact Info) Description 04/04/2008 Historical Encounter Global Abhi Ruzi MD Social History Tobacco Use Types Packs/Day [...] 9:30 AM EDT Office Visit [facility] [address], [address] [place] [address] Marcos Santana APRN [address] [place] [address],[address] [place], [place] [id number] documented as of this encounter Visit Diagnoses Not on filedocumented in this encounter Care Teams Securities Adviser Relationship Specialty Start Date End Date Abhi Ruiz MD PCP - General 12/29/07 10/04/09 Rikki Painter DO [address] [place] [address] PCP - General Family Medicine 10/05/09 06/12/11 Louie Purdy MD [address] [place] [address] PCP - General Family Medicine 06/13/11 07/05/14 Maricruz Burris APRN [address] [place] [address] PCP - General Nurse Practitioner 07/06/14 11/29/14 Otilia Abreu [place] PCP - General Family Medicine 11/30/14 04/25/15 Julio Samayoa APRN [address] [place] [address] PCP - General nurse practitioner adult care 04/26/15 01/19/17 Julio Samayoa APRN [address] [place], [place] [address] PCP - General Family Practice 01/20/17 01/19/18 Tiffanie Avery MD [address] [place] [address] PCP - General Family Medicine 01/20/18 10/28/23 Tiffanie Avery MD [address] [place] [address] PCP - General Family Medicine 12/22/23 Stew Hankins III, MD Gastroenterology 10/25/10 Kirby Kaur MD [address] [place] [address] Family Medicine 12/23/11 Nicholas Cristobal MD [address] [place] [address] Gastroenterology 08/08/14 Charlie Ayala, PAMindiC [address] [place] [address] Physician Partition Making Machine Operator 02/05/15 Sully Castillo LPN 02/22/15 Florin Vicente MD [address] [place] [address] [place] [address] Pulmonary Disease 01/19/18 Sindi Mcfarland MA 09/22/18 Mao Powell MD [address] [place] [address] Orthopedic Surgery 05/22/21 Jeff Douglas MD [address] [place] [address] [place] [address] Orthopedic Surgery 07/18/21 documented as of this encounter
--- OUTSIDE RECORDS SUMMARY | 2024-11-28 11:15 | XMS_ITS | Encounter Summary ---
Author Organization [facility] Address [address] [place] [address] Care Team Providers Care Podiatric Aide Name Role Phone Abhi Ruiz MD Primary Care Provider Unavailabl e Rikki Painter DO Primary Care Provider [phone] Nhi AZUL MD, Morris Wilson Unavailable Haven vailable Louie Purdy MD Primary Care Provider [phone] Kirby Kaur MD Unavailable [phone] Maricruz Burris APRN Primary Care Provide r Nicholas Cristobal MD Unavailable Doctor, No Primary Care Provider UnavailCharlie Greenberg PA-C Unavailable [phone] Sully Castillo LPN Unavailable Unavailable Julio Samayoa APRN Primary Care Provider [phone] Julio Samayoa APRN Primary Care Provider [phone] Florin Vicente MD Unavailable Tiffanie Avery MD Primary Care Provider [phone] Sindi Mcfarland MA Unavailable Unavailable Mao Powell MD Unavailable [phone] Jeff Douglas MD Unavailable [phone] Tiffanie Avery MD Primary Care Provider Encounter Details Date Type Department Care Team (Late st Contact Info) Description 02/08/2001 Historical Encounter Global Blu Ruiz Social History Tobacco Use Types Packs/Day Years Used Date Smoking Tobacco: Never Assessed Sex and Gender Information Value Date Recorded Sex Assigned at Not on file Legal Sex Male 9:36 PM EST Gender Identity Not on file Sexual Orientation Not on file documented as of this encounter Plan of Treatment Upcoming Encounters Date Type Department Care Team ([facility] st Contact Info) Description 12/05/2024 9:30 AM EDT Office Visit [facility] [address], [address] [place] [address] Marcos Santana APRN [address] [place] [address],[address] [place], [place] [id number] documented as of this encounter Visit Diagnoses Not on filedocumented in this encounter Care Teams Podiatric Aide Relationship Specialty Start Date End Date Abhi Ruiz MD PCP - General 12/29/07 10/04/09 Rikki Painter DO [address] [place] [address] PCP - General Family Medicine 10/05/09 06/12/11 Louie Purdy MD [address] [place] [address] PCP - General Family Medicine 06/13/11 07/05/14 Maricruz Burris BRINE TANK SEPARATOR OPERATOR [address] [place] [address] PCP - General Nurse Practitioner 07/06/14 11/29/14 Otilia Abreu [place] PCP - General Family Medicine 11/30/14 04/25/15 Julio Samayoa APRN [address] [place] [address] PCP - General nurse practitioner adult care 04/26/15 01/19/17 Julio Samayoa, YANNICK [address] [place] [address] PCP - General Family Practice 01/20/17 01/19/18 Tiffanie Avery MD [address] [place] [address] PCP - General Family Medicine 01/20/18 10/28/23 Tiffanie Avery MD [address] [place] [address] PCP - General Family Medicine 12/22/23 Stew Hankins III, MD Gastroenterology 10/25/10 Kirby Kaur MD [address] [place] [address] Family Medicine 12/23/11 Nicholas Cristobal MD [address] [place] [address] Gastroenterology 08/08/14 Charlie Ayala, PA-C [address] [place] [address] Physician X Ray Inspector 02/05/15 Sully Castillo LPN 02/22/15 Florin Vicente MD [address] [place] [address] [place] [address] Pulmonary Disease 01/19/18 Sindi Mcfarland MA 09/22/18 Mao Powell MD [address] [place] [address] Orthopedic Surgery 05/22/21 Jeff Douglas MD [address] [place], [place] [address] Orthopedic Surgery 07/18/21 documented as of this encounter
--- OUTSIDE RECORDS SUMMARY | 2024-11-28 11:15 | XMS_ITS | Encounter Summary ---
Author Organization [facility] Address [address] [place] [address] Care Team Providers Care Organic Extractions Technician Name Role Phone Abhi Ruiz MD Primary Care Provider Unavailabl e Rikki Painter DO Primary Care Provider [phone] Nhi AZUL MD, Morris Wilson Unavailable Haven vailable Louie Purdy MD Primary Care Provider [phone] Kirby Kaur MD Unavailable [phone] Maricruz Burris APRN Primary Care Provide r Nicholas Cristobal MD Unavailable Doctor, No Primary Care Provider UnavailCharlie Greenberg PA-C Unavailable [phone] Sully Castillo LPN Unavailable Unavailable Julio Samayoa APRN Primary Care Provider [phone] Julio Samayoa APRN Primary Care Provider [phone] Florin Vicente MD Unavailable Tiffanie Avery MD Primary Care Provider [phone] Sindi Mcfarland MA Unavailable Unavailable Mao Powell MD Unavailable [phone] Jeff Douglas MD Unavailable [phone] Tiffanie Avery MD Primary Care Provider Encounter Details Date Type Department Care Team (Late st Contact Info) Description 12/13/2002 Historical Encounter Global Blu Ruiz Social History Tobacco Use Types Packs/Day Years Used Date Smoking Tobacco: Never Assessed Sex and Gender Information Value Date Recorded Sex Assigned at Not on file Legal Sex Male 9:36 PM EST Gender Identity Not on file Sexual Orientation Not on file documented as of this encounter Plan of Treatment Upcoming Encounters Date Type Department Care Team ([facility] st Contact Info) Description 12/05/2024 9:30 AM EDT Office Visit [facility] [address], [address] [place] [address] Marcos Santana APRN [address] [place] [address],[address] [place], [place] [address] documented as of this encounter Visit Diagnoses Not on filedocumented in this encounter Care Teams Organic Extractions Technician Relationship Specialty Start Date End Date Abhi Ruiz MD PCP - General 12/29/07 10/04/09 Rikki Painter DO [address] [place] [address] PCP - General Family Medicine 10/05/09 06/12/11 Louie Purdy MD [address] [place] [address] PCP - General Family Medicine 06/13/11 07/05/14 Maricruz Burris STOCK DRIVER [address] [place] [address] PCP - General Nurse Practitioner 07/06/14 11/29/14 Otilia Abreu [place] PCP - General Family Medicine 11/30/14 04/25/15 Julio Samayoa APRN [address] [place] [address] PCP - General nurse practitioner adult care 04/26/15 01/19/17 Julio Samayoa, YANNICK [address] [place] [address] PCP - General Family Practice 01/20/17 01/19/18 Tiffanie Avery MD [address] [place] [address] PCP - General Family Medicine 01/20/18 10/28/23 Tiffanie Avery MD [address] [place] [address] PCP - General Family Medicine 12/22/23 Stew Hankins III, MD Gastroenterology 10/25/10 Kirby Kaur MD [address] [place] [address] Family Medicine 12/23/11 Nicholas Cristobal MD [address] [place] [address] Gastroenterology 08/08/14 Charlie Ayala, PA-C [address] [place] [address] Physician Surg Rn 02/05/15 Sully Castlilo LPN 02/22/15 Florin Vicente MD [address] [place] [address] [place] [address] Pulmonary Disease 01/19/18 Sindi Mcfarland MA 09/22/18 Mao Powell MD [address] [place] [address] Orthopedic Surgery 05/22/21 Jeff Douglas MD [address] [place], [place] [address] Orthopedic Surgery 07/18/21 documented as of this encounter
--- OUTSIDE RECORDS SUMMARY | 2024-11-28 11:15 | XMS_ITS | Encounter Summary ---
Author Organization [facility] Address [address] [place] [address] Care Team Providers Care Home Office Claim Specialist Name Role Phone Abhi Ruiz MD Primary Care Provider Unavailabl e Rikki Painter DO Primary Care Provider [phone] Nhi AZUL MD, Morris Wilson Unavailable Haven vailable Louie Purdy MD Primary Care Provider [phone] Kirby Kaur MD Unavailable [phone] Maricruz Burris APRN Primary Care Provide r Nicholas Cristobal MD Unavailable Doctor, No Primary Care Provider UnavailCharlie Greenberg PA-C Unavailable [phone] Sully Castillo LPN Unavailable Unavailable Julio Samayoa APRN Primary Care Provider [phone] Julio Samayoa APRN Primary Care Provider [phone] Florin Vicente MD Unavailable Tiffanie Avery MD Primary Care Provider [phone] Sindi Mcfarland MA Unavailable Unavailable Mao Powell MD Unavailable [phone] Jeff Douglas MD Unavailable [phone] Tiffanie Avery MD Primary Care Provider [phone] Encounter Details Date Type Department Care Team (Late st Contact Info) Description 10/23/2000 Historical Encounter Global Blu Ruiz Social History Tobacco Use Types Packs/Day Years Used Date Smoking Tobacco: Never Assessed Sex and Gender Information Value Date Recorded Sex Assigned at Not on file Legal Sex Male 9:36 PM EST Gender Identity Not on file Sexual Orientation Not on file documented as of this encounter Plan of Treatment Upcoming Encounters Date Type Department Care Team ([facility] st Contact Info) Description 12/05/2024 9:30 AM EDT Office Visit [facility] [address], [address] [place] [address] Marcos Santana APRN [address] [place] [address],[address] [place], [place] [address] documented as of this encounter Visit Diagnoses Not on filedocumented in this encounter Care Teams Home Office Claim Specialist Relationship Specialty Start Date End Date Abhi Ruiz MD PCP - General 12/29/07 10/04/09 Rikki Painter DO [address] [place] [address] PCP - General Family Medicine 10/05/09 06/12/11 Louie Purdy MD [address] [place] [address] PCP - General Family Medicine 06/13/11 07/05/14 Maricruz Burris BIOLOGY DEPARTMENT CHAIR [address] [place] [address] PCP - General Nurse Practitioner 07/06/14 11/29/14 Otilia Abreu [place] PCP - General Family Medicine 11/30/14 04/25/15 Julio Samayoa APRN [address] [place] [address] PCP - General nurse practitioner adult care 04/26/15 01/19/17 Julio Samayoa, YANNICK [address] [place] [address] PCP - General Family Practice 01/20/17 01/19/18 Tiffanie Avery MD [address] [place] [address] PCP - General Family Medicine 01/20/18 10/28/23 Tiffanie Avery MD [address] [place] [address] PCP - General Family Medicine 12/22/23 Stew Hankins III, MD Gastroenterology 10/25/10 Kirby Kaur MD [address] [place] [address] Family Medicine 12/23/11 Nicholas Cristobal MD [address] [place] [address] Gastroenterology 08/08/14 Charlie Ayala, PA-C [address] [place] [address] Physician Pasting Machine Offbearer 02/05/15 Sully Castillo LPN 02/22/15 Florin Vicente MD [address] [place] [address] [place] [address] Pulmonary Disease 01/19/18 Sindi Mcfarland MA 09/22/18 Mao Powell MD [address] [place] [address] Orthopedic Surgery 05/22/21 Jeff Douglas MD [address] [place], [place] [address] Orthopedic Surgery 07/18/21 documented as of this encounter
--- OUTSIDE RECORDS SUMMARY | 2024-11-28 11:15 | XMS_ITS | Encounter Summary ---
Author Organization [facility] Address [address] [place] [address] Care Team Providers Care Timekeeping Supervisor Name Role Phone Nhi AZUL MD, Stew Gonzales Unavailable Haven Kirby Bustamante MD Unavailable Nicholas Cristobal MD Unavailable Charlie Ayala PA-C Unavailable [phone] Sully Castillo LPN Unavailable Unavailable Florin Vicente MD Unavailable Sindi Mcfarland MA Unavailable Unavailable Mao Powell MD Unavailable Jeff Douglas MD Unavailable Tiffanie Avery MD Primary Care Provider [phone] Encounter Details Date Type Department Care Team (Late st Contact Info) Description 01/15/2024 Orders Only [facility] [address], [address] [place] [address] Marcos Santana, MOLD ENGRAVER [address] [place] [address],[address] [place], [place] [id number] Status post coronary artery stent placement Social History Tobacco Use Types Packs/Day Years Used Date Smoking Tobacco: Former Cigarettes 1 20 1 - 03/15/1986 Smokeless Tobacco: Never Alcohol Use Standard Drinks/Week Comments No 0 (1 standard drink = 0.6 oz pur e alcohol) [facility] Utilities Answer Date Recorded In the past 12 months has th e electric, gas, oil, or water company threatened to shut off services in your home? No 12/29/2023 Humiliation, Afraid, Rape, and Kick questionnair e Answer Date Recorded Within the last year, have y ou been afraid of your partner or ex-partner? No 12/29/2023 Emotionally Abused Not on file 12/29/2023 Physically Abused Not on file 12/29/2023 Sexually Abused Not on file 12/29/2023 PHQ-2 Answer Date Recorded PHQ-2 SCORE 0 01/16/2024 Hunger Vital Sign Answer Date Recorded Worried About Running Out of Food in the Last Ye ar Not on file 12/29/2023 Within the past 12 months, t he food you bought just didn't last and you didn't have money to get more. Never true 12/29/2023 PRAPARE - Transportation Answer Date Re corded In the past 12 months, has l ack of transportation kept you from medical appointments or from getting medications? No 12/29/2023 Lack of Transportation (Non-Medical) Not on file 12/29/2023 Housing Stability Vital Sign Answer Milan e Recorded Unable to Pay for Housing in the Last Year Not o n file 12/29/2023 Number of Places Lived in the Last Year Not on f ile 12/29/2023 In the last 12 months, was t here a time when you did not have a steady place to sleep or slept in a residential (including now)? No 12/29/2023 Sex and Gender Information Value Date Recorded Sex Assigned at Not on file Legal Sex Male 9:36 PM EST Gender Identity Not on file Sexual Orientation Not on file documented as of this encounter Plan of Treatment Upcoming Encounters Date Type Department Care Team (Late st Contact Info) Description 12/05/2024 9:30 AM EDT Office Visit [facility] [address] [place], [address] [place] [address] Marcos Santana APRN [address] [place] [address],[address] [place] [address] documented as of this encounter Visit Diagnoses Diagnosis Status post coronary artery stent placement Postsurgical percutaneous transluminal coronary angioplasty status documented in this encounter Additional Health Concerns Assessment Noted Time PHQ-9 Depression Total Score: 0 04/01/20 19 2:31 PM EST documented as of this encounter Care Teams Timekeeping Supervisor Relationship Specialty Start Date End Date Tiffanie Avery MD [address] [facility] [place] [address] PCP - General Family Medicine 12/22/23 Stew Hankins III, MD Gastroenterology 10/25/10 Kirby Kaur MD [address] [place] [address] [address] Family Medicine 12/23/11 Nicholas Cristobal MD [address] [place] [address] [address] [place] [address] Gastroenterology 08/08/14 Charlie Ayala, TORIC [address] [place] [address] [address] [place] [address] Physician Solution Consultant 02/05/15 Sully Castillo LPN 02/22/15 Florin Vicente MD [address] [facility] [address] [address] Pulmonary Disease 01/19/18 Sindi Mcfarland MA 09/22/18 Mao Powell MD [address] [place] [address] [address] Orthopedic Surgery 05/22/21 Jeff Douglas MD [address] [place] [address] [address] Orthopedic Surgery 07/18/21 documented as of this encounter
--- OUTSIDE RECORDS SUMMARY | 2024-11-28 11:15 | XMS_ITS | Encounter Summary ---
Author Organization [facility] Address [address] [place] [address] Care Team Providers Care Home Housekeeper Name Role Phone Nhi AZUL MD, Morris Wilson Unavailable Haven Kirby Busatmante MD Unavailable [phone] Nicholas Cristobal MD Unavailable Charlie Ayala PA-C Unavailable [phone] Sully Castillo LPN Unavailable Unavailable Florin Vicente MD Unavailable Sindi Mcfarland MA Unavailable Unavailable Mao Powell MD Unavailable Jeff Douglas MD Unavailable Tiffanie Avery MD Primary Care Provider Reason for Visit * Reason Onset Date Comments Medications Refill 11/10/2024 Encounter Details Date Type Department Care Team (Late st Contact Info) Description 11/10/2024 Refill [facility] [address] [place] [address] [place] [address] Tiffanie Avery MD [address] [place] [address] Coronary artery disease involving [place] coronary artery of [place] heart without angina pectoris; Palpitations; Shortness of breath Social History Tobacco Use Types Packs/Day Years Used Date Smoking Tobacco: Former Cigarettes 1 20 1 - 03/15/1986 Smokeless Tobacco: Never Alcohol Use Standard Drinks/Week Comments No 0 (1 standard drink = 0.6 oz pur e alcohol) [facility] Utilities Answer Date Recorded In the [...] place to sleep or slept in a nursing home (including now)? No 12/29/2023 Housing Stability Vital Sign Answer [place] e Recorded In the last 12 months, was t here a time when you were not able to pay the mortgage or rent on time? No 05/10/2024 In the past 12 months, how m any times have you moved where you were living? 0 05/10/2024 At any time in the past 12 m [facility], were you homeless or living in a nursing home (including now)? No 05/10/2024 Sex and Gender Information Value Date Recorded Sex Assigned at Not on file Legal Sex Male 9:36 PM EST Gender Identity Not on file Sexual Orientation Not on file documented as of this encounter Miscellaneous Notes * Telephone Encounter - Davey Gleason - 11/10/2024 4:51 PM EDT Refill due: yes Primary Care Provider is: [facility] verified: yes Refill requested for 90 days Last appointment 05/10/24. Next appointment none. Patient is currently out of medication: no Special circumstances communicated by the patient: none Refill read back and confirmed with patient: yes documented in this encounter Plan of Treatment Upcoming Encounters Date Type Department Care Team (Late st Contact Info) Description 12/05/2024 9:30 AM EDT Office Visit [facility] [address] [place] [address] Marcos Santana APRN [address] [place] [address],[address] [place], [place] [id number] documented as of this encounter Visit Diagnoses Diagnosis Coronary artery disease involving [place] coronary artery of [place] heart without angina pectoris Palpitations Shortness of breath documented in this encounter Additional Health Concerns Assessment Noted Time PHQ-9 Depression Total Score: 0 04/01/20 19 2:31 PM EST documented as of this encounter Care Teams Home Housekeeper Relationship Specialty Start Date End Date Tiffanie Avery MD [facility] [place] [address] PCP - General Family Medicine 12/22/23 Stew Hankins III, MD Gastroenterology 10/25/10 Kirby Kaur MD [address] [place] [address] [place] [address] Family Medicine 12/23/11 Nicholas Cristobal MD [address] [place] [address] [place] [address] Gastroenterology 08/08/14 Charlie Ayala, TORIC [address] [place] [address] [place] [address] Physician Director Of Social Work 02/05/15 Sully Castillo LPN 02/22/15 Florin Vicente MD [address] [place] [address] [place] [address] Pulmonary Disease 01/19/18 Sindi Mcfarland MA 09/22/18 Mao Powell MD [address] [place] [address] [place] [address] Orthopedic Surgery 05/22/21 Jeff Douglas MD [address] [place] [address] [address] Orthopedic Surgery 07/18/21 documented as of this encounter
--- OUTSIDE RECORDS SUMMARY | 2024-11-28 11:15 | XMS_ITS | Encounter Summary ---
Author Organization [facility] Address [address] [place] [address] Care Team Providers Care Pigment Processor Name Role Phone Abhi Ruiz MD Primary Care Provider Unavailabl e Rikki Painter DO Primary Care Provider [phone] Nhi AZUL MD, Morris Wilson Unavailable Haven vailable Louie Purdy MD Primary Care Provider [phone] Kirby Kaur MD Unavailable [phone] Maricruz Burris APRN Primary Care Provide r Nicholas Cristobal MD Unavailable Doctor, No Primary Care Provider UnavailCharlie Greenberg PA-C Unavailable [phone] Sully Castillo LPN Unavailable Unavailable Julio Samayoa APRN Primary Care Provider [phone] Julio Samayoa APRN Primary Care Provider [phone] Florin Vicente MD Unavailable Tiffanie Avery MD Primary Care Provider [phone] Sindi Mcfarland MA Unavailable Unavailable Mao Powell MD Unavailable [phone] Jeff Douglas MD Unavailable [phone] Tiffanie Avery MD Primary Care Provider [phone] Encounter Details Date Type Department Care Team (Late st Contact Info) Description 03/18/1993 Historical Encounter Global Abhi Mejia Social History Tobacco Use Types Packs/Day Years Used Date Smoking Tobacco: Never Assessed Sex and Gender Information Value Date Recorded Sex Assigned at Not on file Legal Sex Male 9:36 PM EST Gender Identity Not on file Sexual Orientation Not on file documented as of this encounter Plan of Treatment Upcoming Encounters Date Type Department Care Team ([facility] st Contact Info) Description 12/05/2024 9:30 AM EDT Office Visit [facility] [address], [address] [place] [address] Marcos Santana APRN [address] [place] [address],[address] [place], [place] [id number] documented as of this encounter Visit Diagnoses Not on filedocumented in this encounter Care Teams Pigment Processor Relationship Specialty Start Date End Date Abhi Ruiz MD PCP - General 12/29/07 10/04/09 Rikki Painter DO [address] [place] [address] PCP - General Family Medicine 10/05/09 06/12/11 Louie Purdy MD [address] [place] [address] PCP - General Family Medicine 06/13/11 07/05/14 Maricruz Burris SHELL MOLDING ROLLER BLAST OPERATOR [address] [place] [address] PCP - General Nurse Practitioner 07/06/14 11/29/14 Otilia Abreu [place] PCP - General Family Medicine 11/30/14 04/25/15 Julio Samayoa APRN [address] [place] [address] PCP - General nurse practitioner adult care 04/26/15 01/19/17 Julio Samayoa, YANNICK [address] [place] [address] PCP - General Family Practice 01/20/17 01/19/18 Tiffanie Avery MD [address] [place] [address] PCP - General Family Medicine 01/20/18 10/28/23 Tiffanie Avery MD [address] [place] [address] PCP - General Family Medicine 12/22/23 Stew Hankins III, MD Gastroenterology 10/25/10 Kirby Kaur MD [address] [place] [address] Family Medicine 12/23/11 Nicholas Cristobal MD [address] [place] [address] Gastroenterology 08/08/14 Charlie Ayala, PA-C [address] [place] [address] Physician Bass Mechanism Maker 02/05/15 Sully Castillo LPN 02/22/15 Florin Vicente MD [address] [place] [address] [place] [address] Pulmonary Disease 01/19/18 Sindi Mcfarland MA 09/22/18 Mao Powell MD [address] [place] [address] Orthopedic Surgery 05/22/21 Jeff Douglas MD [address] [place], [place] [address] Orthopedic Surgery 07/18/21 documented as of this encounter
--- OUTSIDE RECORDS SUMMARY | 2024-11-28 11:15 | XMS_ITS | Encounter Summary ---
Author Organization [facility] Address [address] [place] [address] Care Team Providers Care Carbon Electrodes Supervisor Name Role Phone Abhi Ruiz MD Primary Care Provider Unavailabl e Rikki Painter DO Primary Care Provider [phone] Nhi AZUL MD, Morris Wilson Unavailable Haven vailable Louie Purdy MD Primary Care Provider [phone] Kirby Kaur MD Unavailable [phone] Maricruz Burris APRN Primary Care Provide r Nicholas Cristobal MD Unavailable Doctor, No Primary Care Provider UnavailCharlie Greenberg PA-C Unavailable [phone] Sully Castillo LPN Unavailable Unavailable Julio Samayoa APRN Primary Care Provider [phone] Julio Samayoa APRN Primary Care Provider [phone] Florin Vicente MD Unavailable Tiffanie Avery MD Primary Care Provider [phone] Sindi Mcfarland MA Unavailable Unavailable Mao Powell MD Unavailable [phone] Jeff Douglas MD Unavailable [phone] Tiffanie Avery MD Primary Care Provider [phone] Encounter Details Date Type Department Care Team (Late st Contact Info) Description 03/25/2000 Historical Encounter Global Blu Ruiz Social History Tobacco Use Types Packs/Day Years Used Date Smoking Tobacco: Never Assessed Sex and Gender Information Value Date Recorded Sex Assigned at Not on file Legal Sex Male 9:36 PM EST Gender Identity Not on file Sexual Orientation Not on file documented as of this encounter Plan of Treatment Upcoming Encounters Date Type Department Care Team ([facility] st Contact Info) Description 12/05/2024 9:30 AM EDT Office Visit [facility] [address], [address] [place] [address] Marcos Santana APRN [address] [place] [address],[address] [place], [place] [address] documented as of this encounter Visit Diagnoses Not on filedocumented in this encounter Care Teams Carbon Electrodes Supervisor Relationship Specialty Start Date End Date Abhi Ruiz MD PCP - General 12/29/07 10/04/09 Rikki Painter DO [address] [place] [address] PCP - General Family Medicine 10/05/09 06/12/11 Louie Purdy MD [address] [place] [address] PCP - General Family Medicine 06/13/11 07/05/14 Maricruz Burris BOOTH CLEANER [address] [place] [address] PCP - General Nurse Practitioner 07/06/14 11/29/14 Otilia Abreu [place] PCP - General Family Medicine 11/30/14 04/25/15 Julio Samayoa APRN [address] [place] [address] PCP - General nurse practitioner adult care 04/26/15 01/19/17 Julio Samayoa, YANNICK [address] [place] [address] PCP - General Family Practice 01/20/17 01/19/18 Tiffanie Avery MD [address] [place] [address] PCP - General Family Medicine 01/20/18 10/28/23 Tiffanie Avery MD [address] [place] [address] PCP - General Family Medicine 12/22/23 Stew Hankins III, MD Gastroenterology 10/25/10 Kirby Kaur MD [address] [place] [address] Family Medicine 12/23/11 Nicholas Cristobal MD [address] [place] [address] Gastroenterology 08/08/14 Charlie Ayala, PA-C [address] [place] [address] Physician Regulatory Compliance Officer 02/05/15 Sully Castillo LPN 02/22/15 Florin Vicente MD [address] [place] [address] [place] [address] Pulmonary Disease 01/19/18 Sindi Mcfarland MA 09/22/18 Mao Powell MD [address] [place] [address] Orthopedic Surgery 05/22/21 Jeff Douglas MD [address] [place], [place] [address] Orthopedic Surgery 07/18/21 documented as of this encounter
--- OUTSIDE RECORDS SUMMARY | 2024-11-28 11:15 | XMS_ITS | Encounter Summary ---
Author Organization [facility] Address [address] [place] [address] Care Team Providers Care Med Dir Name Role Phone Abhi Ruiz MD Primary Care Provider Unavailabl e Rikki Painter DO Primary Care Provider [phone] Nhi AZUL MD, Morris Wilson Unavailable Haven vailable Louie Purdy MD Primary Care Provider [phone] Kirby Kaur MD Unavailable [phone] Maricruz Burris APRN Primary Care Provide r Nicholas Cristobal MD Unavailable Doctor, No Primary Care Provider UnavailCharlie Greenberg PA-C Unavailable [phone] Sully Castillo LPN Unavailable Unavailable Julio Samayoa APRN Primary Care Provider [phone] Julio Samayoa APRN Primary Care Provider [phone] Florin Vicente MD Unavailable Tiffanie Avery MD Primary Care Provider [phone] Sindi Mcfarland MA Unavailable Unavailable Mao Powell MD Unavailable [phone] Jeff Douglas MD Unavailable [phone] Tiffanie Avery MD Primary Care Provider Encounter Details Date Type Department Care Team (Late st Contact Info) Description 08/24/2001 Historical Encounter Global Blu Ruiz Social History Tobacco Use Types Packs/Day Years Used Date Smoking Tobacco: Never Assessed Sex and Gender Information Value Date Recorded Sex Assigned at Not on file Legal Sex Male 9:36 PM EST Gender Identity Not on file Sexual Orientation Not on file documented as of this encounter Plan of Treatment Upcoming Encounters Date Type Department Care Team ([facility] st Contact Info) Description 12/05/2024 9:30 AM EDT Office Visit [facility] [address], [address] [place] [address] Marcos Santana APRN [address] [place] [address],[address] [place], [place] [id number] documented as of this encounter Visit Diagnoses Not on filedocumented in this encounter Care Teams Med Dir Relationship Specialty Start Date End Date Abhi Ruiz MD PCP - General 12/29/07 10/04/09 Rikki Painter DO [address] [place] [address] PCP - General Family Medicine 10/05/09 06/12/11 Louie Purdy MD [address] [place] [address] PCP - General Family Medicine 06/13/11 07/05/14 Maricruz Burris RISK ADVISOR [address] [place] [address] PCP - General Nurse Practitioner 07/06/14 11/29/14 Otilia Abreu [place] PCP - General Family Medicine 11/30/14 04/25/15 Julio Samayoa APRN [address] [place] [address] PCP - General nurse practitioner adult care 04/26/15 01/19/17 Julio Samayoa, YANNICK [address] [place] [address] PCP - General Family Practice 01/20/17 01/19/18 Tiffanie Avery MD [address] [place] [address] PCP - General Family Medicine 01/20/18 10/28/23 Tiffanie Avery MD [address] [place] [address] PCP - General Family Medicine 12/22/23 Stew Hankins III, MD Gastroenterology 10/25/10 Kirby Kaur MD [address] [place] [address] Family Medicine 12/23/11 Nicholas Cristobal MD [address] [place] [address] Gastroenterology 08/08/14 Charlie Ayala, PA-C [address] [place] [address] Physician Gasoline Engine Assembler 02/05/15 Sully Castillo LPN 02/22/15 Florin Vicente MD [address] [place] [address] [place] [address] Pulmonary Disease 01/19/18 Sindi Mcfarland MA 09/22/18 Mao Powell MD [address] [place] [address] Orthopedic Surgery 05/22/21 Jeff Douglas MD [address] [place], [place] [address] Orthopedic Surgery 07/18/21 documented as of this encounter
--- OUTSIDE RECORDS SUMMARY | 2024-11-28 11:15 | XMS_ITS | Encounter Summary ---
Author Organization [facility] Address [address] [place] [address] Care Team Providers Care Clinical Documentation Spec Name Role Phone Abhi Ruiz MD Primary Care Provider Unavailabl e Rikki Painter DO Primary Care Provider [phone] Nhi AZUL MD, Morris Wilson Unavailable Haven vailable Louie Purdy MD Primary Care Provider [phone] Kirby Kaur MD Unavailable [phone] Maricruz Burris APRN Primary Care Provide r Nicholas Cristobal MD Unavailable Doctor, No Primary Care Provider UnavailCharlie Greenberg PA-C Unavailable [phone] Sully Castillo LPN Unavailable Unavailable Julio Samayoa APRN Primary Care Provider [phone] Julio Samayoa APRN Primary Care Provider [phone] Florin Vicente MD Unavailable Tiffanie Avery MD Primary Care Provider [phone] Sindi Mcfarland MA Unavailable Unavailable Mao Powell MD Unavailable [phone] Jeff Douglas MD Unavailable [phone] Tiffanie Avery MD Primary Care Provider Encounter Details Date Type Department Care Team (Late st Contact Info) Description 04/04/2008 Historical Encounter Global Abhi Ruiz MD Social [...] 9:30 AM EDT Office Visit [facility] [address], [address] [place] [address] Marcos Santana APRN [address] [place] [address],[address] [place], [place] [id number] documented as of this encounter Visit Diagnoses Not on filedocumented in this encounter Care Teams Clinical Documentation Spec Relationship Specialty Start Date End Date Abhi Ruiz MD PCP - General 12/29/07 10/04/09 Rikki Painter DO [address] [place] [address] PCP - General Family Medicine 10/05/09 06/12/11 Louie Purdy MD [address] [place] [address] PCP - General Family Medicine 06/13/11 07/05/14 Maricruz Burris APRN [address] [place] [address] PCP - General Nurse Practitioner 07/06/14 11/29/14 Otilia Abreu [place] PCP - General Family Medicine 11/30/14 04/25/15 Julio Samayoa APRN [address] [place] [address] PCP - General nurse practitioner adult care 04/26/15 01/19/17 Julio Samayoa APRN [address] [place], [place] [address] PCP - General Family Practice 01/20/17 01/19/18 Tiffanie Avery MD [address] [place] [address] PCP - General Family Medicine 01/20/18 10/28/23 Tiffanie Avery MD [address] [place] [address] PCP - General Family Medicine 12/22/23 Stew Hankins III, MD Gastroenterology 10/25/10 Kirby Kaur MD [address] [place] [address] Family Medicine 12/23/11 Nicholas Cristobal MD [address] [place] [address] Gastroenterology 08/08/14 Charlie Ayala, PAMindiC [address] [place] [address] Physician Endo Tech 02/05/15 Sully Castillo LPN 02/22/15 Florin Vicente MD [address] [place] [address] [place] [address] Pulmonary Disease 01/19/18 Sindi Mcfarland MA 09/22/18 Mao Powell MD [address] [place] [address] Orthopedic Surgery 05/22/21 Jeff Douglas MD [address] [place] [address] [place] [address] Orthopedic Surgery 07/18/21 documented as of this encounter
--- OUTSIDE RECORDS SUMMARY | 2024-11-28 11:15 | XMS_ITS | Encounter Summary ---
Author Organization [facility] Address [address] [place] [address] Care Team Providers Care Bill Checker Name Role Phone Nhi AZUL MD, Morris Wilson Unavailable Haven Kirby Bustamante MD Unavailable [phone] Nicholas Cristobal MD Unavailable Doctor, No Primary Care Provider UnavailCharlie Greenberg PA-C Unavailable Sully Castillo LPN Unavailable Unavailable Julio Samayoa APRN Primary Care Provider [phone] Julio Samayoa APRN Primary Care Provider [phone] Florin Vicente MD Unavailable Tiffanie Avery MD Primary Care Provider [phone] Sindi Mcfarland MA Unavailable Unavailable Mao Powell MD Unavailable Jeff Douglas MD Unavailable Tiffanie Avery MD Primary Care Provider [phone] Encounter Details Date Type Department Care Team (Late st Contact Info) Description 04/17/2015 Orders Only [facility] [address] [place] [address] [address] [place] [address] Clem Westbrook MD [address] [place] [address] Erectile dysfunction, unspecified erectile dysfunction type (Primary Dx) Social History Tobacco Use Types [...] AM EDT Office Visit [facility] [address], [address] [place] [address] Marcos Santana APRN [address] [place] [address],[address] [place] [address] documented as of this encounter Visit Diagnoses Diagnosis Erectile dysfunction, unspecified erectile dysfunction type- Primary documented in this encounter Care Teams Bill Checker Relationship Specialty Start Date End Date Doctor, [place] PCP - General Family Medicine 11/30/14 04/25/15 Julio Samayoa APRN [address] [place] [address] PCP - General nurse practitioner adult care 04/26/15 01/19/17 Julio Samayoa APRN [address] [place] [address] PCP - General Family Practice 01/20/17 01/19/18 Tiffanie Avery MD [address] [place] [address] PCP - General Family Medicine 01/20/18 10/28/23 Tiffanie Avery MD [address] [place] [address] PCP - General Family Medicine 12/22/23 Stew Hankins III, MD Gastroenterology 10/25/10 Kirby Kaur MD [address] [place] [address] [place] [address] Family Medicine 12/23/11 Nicholas Cristobal MD [address] [place] [address] Gastroenterology 08/08/14 Charlie Ayala PA-C [address] [place] [address] Physician Roll Tender 02/05/15 Sully Castillo LPN 02/22/15 [place] [address] [place] [address] [place] [address] Pulmonary Disease 01/19/18 Sindi Mcfarland MA 09/22/18 Mao Powell MD [address] [place] [address] [place] [address] Orthopedic Surgery 05/22/21 Jeff Douglas MD [address] [place] [address] [place] [address] Orthopedic Surgery 07/18/21 documented as of this encounter
--- OUTSIDE RECORDS SUMMARY | 2024-11-28 11:15 | XMS_ITS | Encounter Summary ---
Author Organization [facility] Address [address] [place] [address] Care Team Providers Care Night Baker Name Role Phone Nhi AZUL MD, Stew Gonzales Unavailable Haven Kirby Bustamante MD Unavailable Nicholas Cristobal MD Unavailable Charlie Ayala PA-C Unavailable Sully Castillo LPN Unavailable Unavailable Florin Vicente MD Unavailable Tiffanie Avery MD Primary Care Provider [phone] Sindi Mcfarland MA Unavailable Unavailable Mao Powell MD Unavailable [phone] Jeff Douglas MD Unavailable [phone] Tiffanie Avery MD Primary Care Provider [phone] Encounter Details Date Type Department Care Team (Late st Contact Info) Description 06/15/2018 Telephone [facility] [address] [place] [address] Julio Samayoa APRN [address] [place] [address] Social History Tobacco Use Types Packs/Day Years [...] encounter Miscellaneous Notes * Telephone Encounter - Natalie Estrada - 06/15/2018 9:17 AM EST The patient would like to talk to Beau Samayoa about his arm and hand after having his heart cath done on Thursday. Please call at [phone]. Thank you. documented in this encounter Plan of Treatment Upcoming Encounters Date Type Department Care Team (Late st Contact Info) Description 12/05/2024 9:30 AM EDT Office Visit [facility] [address], [address] [place] [address] Marcos Santana APRN [address] [place] [address] [place], [place] [address] documented as of this encounter Visit Diagnoses Not on filedocumented in this encounter Additional Health Concerns Assessment Noted Time PHQ-9 Depression Total Score: 0 12/25/19 18 10:45 AM EDT documented as of this encounter Care Teams Night Baker Relationship Specialty Start Date End Date Tiffanie Avery MD [address] [place] [address] PCP - General Family Medicine 01/20/18 10/28/23 Tiffanie Avery MD [address] [place] [address] PCP - General Family Medicine 12/22/23 Stew Hankins III, MD Gastroenterology 10/25/10 Kirby Kaur MD [address] [place] [address] Family Medicine 12/23/11 Nicholas Cristobal MD [address] [place] [address] [place] [address] Gastroenterology 08/08/14 Charlie Ayala PA-C [address] [place] [address] Physician Supervisor Type Bar And Segment 02/05/15 Sully Castillo LPN 02/22/15 [place] [address] [place] [address] [address] Pulmonary Disease 01/19/18 Sindi Mcfarland MA 09/22/18 Mao Powell MD [address] [place] [address] [place] [address] Orthopedic Surgery 05/22/21 Jeff Douglas MD [address] [place] [address] [address] Orthopedic Surgery 07/18/21 documented as of this encounter
--- OUTSIDE RECORDS SUMMARY | 2024-11-28 11:15 | XMS_ITS | Encounter Summary ---
Author Organization [facility] Address [address] [place] [address] Care Team Providers Care Blueprint Tracer Name Role Phone Nhi AZUL MD, Stew Gonzales Unavailable Haven Kirby Bustamante MD Unavailable Nicholas Cristobal MD Unavailable Charlie Ayala PA-C Unavailable Sully Castillo LPN Unavailable Unavailable Florin Vicente MD Unavailable Tiffanie Avery MD Primary Care Provider [phone] Sindi Mcfarland MA Unavailable Unavailable Mao Powell MD Unavailable [phone] Jeff Douglas MD Unavailable [phone] Tiffanie Avery MD Primary Care Provider [phone] Reason for Visit * Reason Onset Date Comments Other 08/12/2021 med request Encounter Details Date Type Department Care Team (Late st Contact Info) Description 08/12/2021 Telephone [facility] [address] [place] [address] [place] [address] Tiffanie Avery MD [address] [place] [address] Other (med request) Social History Tobacco Use Types Packs/Day Years [...] Exposure Response Date Recorded In the last 10 days, have yo u been in contact with someone who was confirmed or suspected to have Coronavirus/COVID-19? 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 He says from last . Please advise. Thank you. documented in this encounter Plan of Treatment Upcoming Encounters Date Type Department Care Team (Late st Contact Info) Description 12/05/2024 9:30 AM EDT Office Visit [facility] [address], [address] [place] [address] Marcos Santana, YANNICK [address] [place], [place] [address] [place] [address] documented as of this encounter Visit Diagnoses Not on filedocumented in this encounter Additional Health Concerns Assessment Noted Time PHQ-9 Depression Total Score: 0 04/01/20 19 2:31 PM EST documented as of this encounter Care Teams Blueprint Tracer Relationship Specialty Start Date End Date Tiffanie Avery MD [address] [place] [address] PCP - General Family Medicine 01/20/18 10/28/23 Tiffanie Avery MD [address] [place] [address] PCP - General Family Medicine 12/22/23 Stew Hankins III, MD Gastroenterology 10/25/10 Kirby Kaur MD [address] [place] [address] [address] Family Medicine 12/23/11 Nicholas Cristobal MD [address] [place] [address] [place] [address] Gastroenterology 08/08/14 Charlie Ayala PA-C [address] [place] [id number] Physician Paint Tinter 02/05/15 Sully Castillo LPN 02/22/15 [place] [address] [place] [address] [address] Pulmonary Disease 01/19/18 Sindi Mcfarland MA 09/22/18 Mao Powell MD [address] [place] [address] [address] Orthopedic Surgery 05/22/21 Jeff Douglas MD [address] [place] [address] [address] Orthopedic Surgery 07/18/21 documented as of this encounter
--- OUTSIDE RECORDS SUMMARY | 2024-11-28 11:15 | XMS_ITS | Encounter Summary ---
Author Organization [facility] Address [address] [place] [address] Care Team Providers Care Racing Car Driver Name Role Phone Nhi AZUL MD, Stew Gonzales Unavailable Haven Kirby Bustamante MD Unavailable Nicholas Cristobal MD Unavailable Charlie Ayala PA-C Unavailable Sully Castillo LPN Unavailable Unavailable Florin Vicente MD Unavailable Sindi Mcfarland MA Unavailable Unavailable aMo Powell MD Unavailable Jfef Douglas MD Unavailable Tiffanie Avery MD Primary Care Provider [phone] Reason for Visit * Reason Onset Date Comments Other 12/10/2023 Encounter Details Date Type Department Care Team (Late st Contact Info) Description 12/10/2023 Telephone [facility] [address], [address] [place] [address] Joann Ayoub MD [address] [place] [address] [address] [place] [address] Other Social History Tobacco Use Types Packs/Day [...] encounter Miscellaneous Notes * Telephone Encounter - Chari Francisco - 12/10/2023 9:40 AM EDT Sandee LAZCANO is calling with authorization update on PCI request. Sandee hart reviewed request and cannot approve it. Needs to do a peer to peer at [phone] ref [id number]. documented in this encounter Plan of Treatment Upcoming Encounters Date Type Department Care Team (Late st Contact Info) Description 12/05/2024 9:30 AM EDT Office Visit [facility] [address], [address] [place] [address] Marcos Santana APRN [address] [place] [address],[address] [place], [place] [id number] documented as of this encounter Visit Diagnoses Not on filedocumented in this encounter Additional Health Concerns Assessment Noted Time PHQ-9 Depression Total Score: 0 04/01/20 19 2:31 PM EST documented as of this encounter Care Teams Racing Car Driver Relationship Specialty Start Date End Date Tiffanie Avery MD [address] [place] [address] PCP - General Family Medicine 12/22/23 Stew Hankins III, MD Gastroenterology 10/25/10 Kirby Kaur MD [address] [address] [address] [place] [address] Family Medicine 12/23/11 Nicholas Cristobal MD [address] [address] [address] [place] [address] Gastroenterology 08/08/14 Charlie Ayala PA-C [address] [place] [address] [address] [place] [address] Physician Spectrograph Operator 02/05/15 Sully Castillo LPN 02/22/15 Florin Vicente MD [address] [place] [address] [place] [address] Pulmonary Disease 01/19/18 Sindi Mcfarland MA 09/22/18 Mao Powell MD [address] [place] [address] [place] [address] Orthopedic Surgery 05/22/21 Jeff Douglas MD [address] [place] [address] [place] [address] Orthopedic Surgery 07/18/21 documented as of this encounter
--- OUTSIDE RECORDS SUMMARY | 2024-11-28 11:15 | XMS_ITS | Encounter Summary ---
Author Organization [facility] Address [address] [place] [address] Care Team Providers Care Seo Engineer Name Role Phone Rikki Painter DO Primary Care Provider [phone] Nhi AZUL MD, Morris Wilson Unavailable Haven Louie Pace MD Primary Care Provider [phone] Kirby Kaur MD Unavailable [phone] Maricruz Burris APRN Primary Care Provide r Nicholas Cristobal MD Unavailable Doctor, No Primary Care Provider UnavailCharlie Greenberg PA-C Unavailable [phone] Sully Castillo LPN Unavailable Unavailable Julio Samayoa APRN Primary Care Provider [phone] Julio Samayoa APRN Primary Care Provider [phone] Florin Vicente MD Unavailable Tiffanie Avery MD Primary Care Provider [phone] Sindi Mcfarland MA Unavailable Unavailable Mao Powell MD Unavailable [phone] Jeff Douglas MD Unavailable [phone] Tiffanie Avery MD Primary Care Provider [phone] Reason for Visit * Reason Onset Date Comments Medications Refill 04/04/2011 Encounter Details Date Type Department Care Team (Late st Contact Info) Description 04/04/2011 Refill [facility] [address] [place] [address] Rikki Painter DO [address] [place] [address] DM (diabetes mellitus) (Primary Dx) Social History Tobacco Use Types [...] AM EDT Office Visit [facility] [address] [place] [phone] Marcos Santana APRN [address] [place], [place] [address] [place] [address] documented as of this encounter Visit Diagnoses Diagnosis DM (diabetes mellitus) (HCC)- Primary Type II or unspecified type diabetes mellitus without mention of complication, not stated as uncontrolled documented in this encounter Care Teams Seo Engineer Relationship Specialty Start Date End Date Rikki Painter DO [address] [facility] [place] [address] PCP - General Family Medicine 10/05/09 06/12/11 Louie Purdy MD [address] [place], [place] [address] PCP - General Family Medicine 06/13/11 07/05/14 Maricruz Burris, ELEMENTARY SPECIAL EDUCATION TEACHER [address] [place] [address] PCP - General Nurse Practitioner 07/06/14 11/29/14 Otilia Abreu [place] PCP - General Family Medicine 11/30/14 04/25/15 Julio Samayoa APRN [address] [place] [address] PCP - General nurse practitioner adult care 04/26/15 01/19/17 Julio Samayoa APRN [address] [place] [address] PCP - General Family Practice 01/20/17 01/19/18 Tiffanie Avery MD [address] [place] [id number] PCP - General Family Medicine 01/20/18 10/28/23 Tiffanie Avery MD [address] [place] [id number] PCP - General Family Medicine 12/22/23 Stew Hankins III, MD Gastroenterology 10/25/10 Kirby Kaur MD [address] [place] [address] [address] [place] [address] Family Medicine 12/23/11 Nicholas Cristobal MD [address] [place] [address] Gastroenterology 08/08/14 Charlie Ayala, TORIC [address] [place], [place] [address] Physician Welder Oxyhydrogen 02/05/15 Sully Castillo LPN 02/22/15 Florin Vicente MD [address] [facility] [address] [place], [place] [address] Pulmonary Disease 01/19/18 Sindi Mcfarland MA 09/22/18 Mao Powell MD [address] [place] [address] Orthopedic Surgery 05/22/21 Jeff Douglas MD [address] [place] [address] Orthopedic Surgery 07/18/21 documented as of this encounter
--- OUTSIDE RECORDS SUMMARY | 2024-11-28 11:15 | XMS_ITS | Encounter Summary ---
Author Organization [facility] Address [address] [place] [address] Care Team Providers Care Sand Slinger Operator Name Role Phone Abhi Ruiz MD Primary Care Provider Unavailabl e Rikki Painter DO Primary Care Provider [phone] Nhi AZUL MD, Morris Wilson Unavailable Haven vailable Louie Purdy MD Primary Care Provider [phone] Kirby Kaur MD Unavailable [phone] Maricruz Burris APRN Primary Care Provide r Nicholas Cristobal MD Unavailable Doctor, No Primary Care Provider UnavailCharlie Greenberg PA-C Unavailable [phone] Sully Castillo LPN Unavailable Unavailable Julio Samayoa APRN Primary Care Provider [phone] Julio Samayoa APRN Primary Care Provider [phone] Florin Vicente MD Unavailable Tiffanie Avery MD Primary Care Provider [phone] Sindi Mcfarland MA Unavailable Unavailable Mao Powell MD Unavailable [phone] Jeff Douglas MD Unavailable [phone] Tiffanie Avery MD Primary Care Provider Encounter Details Date Type Department Care Team (Late st Contact Info) Description 02/11/2000 Historical Encounter Global Blu Ruiz Social History [...] 9:30 AM EDT Office Visit [facility] [address], [address] [place] [address] Marcos Santana APRN [address] [place] [address],[address] [place], [place] [id number] documented as of this encounter Visit Diagnoses Not on filedocumented in this encounter Care Teams Sand Slinger Operator Relationship Specialty Start Date End Date Abhi Ruiz MD PCP - General 12/29/07 10/04/09 Rikki Painter DO [address] [place] [address] PCP - General Family Medicine 10/05/09 06/12/11 Louie Purdy MD [address] [place] [address] PCP - General Family Medicine 06/13/11 07/05/14 Maricruz Burris FREIGHT HANDLER [address] [place] [address] PCP - General Nurse Practitioner 07/06/14 11/29/14 Otilia Abreu [place] PCP - General Family Medicine 11/30/14 04/25/15 Julio Samayoa APRN [address] [place] [address] PCP - General nurse practitioner adult care 04/26/15 01/19/17 Julio Samayoa, YANNICK [address] [place] [address] PCP - General Family Practice 01/20/17 01/19/18 Tiffanie Avery MD [address] [place] [address] PCP - General Family Medicine 01/20/18 10/28/23 Tiffanie Avery MD [address] [place] [address] PCP - General Family Medicine 12/22/23 Stew Hankins III, MD Gastroenterology 10/25/10 Kirby Kaur MD [address] [place] [address] Family Medicine 12/23/11 Nicholas Cristobal MD [address] [place] [address] Gastroenterology 08/08/14 Charlie Ayala, PA-C [address] [place] [address] Physician Shredded Filler Cigar Maker Machine 02/05/15 Sully Castillo LPN 02/22/15 Florin Vicente MD [address] [place] [address] [place] [address] Pulmonary Disease 01/19/18 Sindi Mcfarland MA 09/22/18 Mao Powell MD [address] [place] [address] Orthopedic Surgery 05/22/21 Jeff Douglas MD [address] [place], [place] [address] Orthopedic Surgery 07/18/21 documented as of this encounter
--- OUTSIDE RECORDS SUMMARY | 2024-11-28 11:15 | XMS_ITS | Encounter Summary ---
Author Organization [facility] Address [address] [place] [address] Care Team Providers Care Menhaden Vessel Pilot Name Role Phone Nhi AZUL MD, Morris Wilson Unavailable Haven Louie Pace MD Primary Care Provider [phone] Kirby Kaur MD Unavailable [phone] Maricruz Burris APRN Primary Care Provide r Nicholas Cristobal MD Unavailable Doctor, No Primary Care Provider UnavailCharlie Greenberg PA-C Unavailable [phone] Sully Castillo LPN Unavailable Unavailable Julio Samayoa APRN Primary Care Provider [phone] Julio Samayoa APRN Primary Care Provider [phone] Florin Vicente MD Unavailable Tiffanie Avery MD Primary Care Provider [phone] Sindi Mcfarland MA Unavailable Unavailable Mao Powell MD Unavailable [phone] Jeff Douglas MD Unavailable [phone] Tiffanie Avery MD Primary Care Provider [phone] Reason for Visit * Reason Onset Date Comments Medications Refill 10/17/2011 Encounter Details Date Type Department Care Team (Late st Contact Info) Description 10/17/2011 Refill [facility] [address] [place] [address] Louie Purdy MD [address] [place] [address] Chronic pain (Primary Dx) Social History Tobacco Use Types [...] * Telephone Encounter - Taya Dean - 10/17/2011 5:07 PM EDT 10/16 5:00pm PT. NOTIFIED TO COME IN FOR PILL COUNT documented in this encounter Plan of Treatment Upcoming Encounters Date Type Department Care Team (Late st Contact Info) Description 12/05/2024 9:30 AM EDT Office Visit [facility] [address] [place] [address] Marcos Santana APRN [address] [place], [place] [address] [place] [address] documented as of this encounter Visit Diagnoses Diagnosis Chronic pain- Primary Other chronic pain documented in this encounter Care Teams Menhaden Vessel Pilot Relationship Specialty Start Date End Date Louie Purdy MD [address] [place] [address] PCP - General Family Medicine 06/13/11 07/05/14 Maricruz Burris APRN [address] [place] [address] PCP - General Nurse Practitioner 07/06/14 11/29/14 Otilia Abreu [place], [place] PCP - General Family Medicine 11/30/14 04/25/15 Julio Samayoa APRN [address] [place] [address] PCP - General nurse practitioner adult care 04/26/15 01/19/17 Julio Samayoa APRN [address] [place] [address] PCP - General Family Practice 01/20/17 01/19/18 Tiffnaie Avery MD [address] [place] [address] PCP - General Family Medicine 01/20/18 10/28/23 Tiffanie Avery MD [address] [place] [id number] PCP - General Family Medicine 12/22/23 Stew Hankins III, MD Gastroenterology 10/25/10 Kirby Kaur MD [address] [address] [place] [address] Family Medicine 12/23/11 Nicholas Cristobal MD [address] [place] [address] Gastroenterology 08/08/14 Charlie Ayala PA-C [address] [place] [address] Physician Buffer Machine 02/05/15 Sully Castillo LPN 02/22/15 Florin Vicente MD [address] [facility] [address] [place] [address] Pulmonary Disease 01/19/18 Sindi Mcfarland MA 09/22/18 Mao Pwoell MD [address] [place] [address] [address] Orthopedic Surgery 05/22/21 Jeff Douglas MD [address] [place] [address] Orthopedic Surgery 07/18/21 documented as of this encounter
--- OUTSIDE RECORDS SUMMARY | 2024-11-28 11:15 | XMS_ITS | Encounter Summary ---
Author Organization [facility] Address [address] [place] [address] Care Team Providers Care Community Planner Name Role Phone Nhi AZUL MD, Stew Gonzales Unavailable Haven Kirby Bustamante MD Unavailable [phone] Nicholas Cristobal MD Unavailable Charlie Ayala PA-C Unavailable [phone] Sully Castillo LPN Unavailable Unavailable Florin Vicente MD Unavailable Sindi Mcfarland MA Unavailable Unavailable Mao Powell MD Unavailable Jeff Douglas MD Unavailable Tiffanie Avery MD Primary Care Provider [phone] Reason for Visit * Reason Onset Date Comments Medications Refill 06/22/2024 Encounter Details Date Type Department Care Team (Late st Contact Info) Description 06/22/2024 Refill [facility] [address] [place] [address] Julio Samayoa APRN [address] [place] [address] Stable angina pectoris; 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 No 12/29/2023 Housing Stability Vital Sign Answer [place] e Recorded In the last 12 months, was t here a time when you were not able to pay the mortgage or rent on time? No 05/10/2024 In the past 12 months, how m any times have you moved where you were living? 0 05/10/2024 At any time in the past 12 m [facility], were you homeless or living in a detention (including now)? No 05/10/2024 Sex and Gender Information Value Date Recorded Sex Assigned at Not on file Legal Sex Male 9:36 PM EST Gender Identity Not on file Sexual Orientation Not on file documented as of this encounter Miscellaneous Notes * Telephone Encounter - Taya Dean - 06/22/2024 4:31 PM EST OUT OF MEDICINE documented in this encounter Plan of Treatment Upcoming Encounters Date Type Department Care Team (Late st Contact Info) Description 12/05/2024 9:30 AM EDT Office Visit [facility] [address], [address] [place] [address] Marcos Santana APRN [address] [place] [address],[address] [place] [address] documented as of this encounter Visit Diagnoses Diagnosis Stable angina pectoris 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, without long-term current use of insulin (HCC) Essential hypertension Unspecified essential hypertension documented in this encounter Additional Health Concerns Assessment Noted Time PHQ-9 Depression Total Score: 0 04/01/20 19 2:31 PM EST documented as of this encounter Care Teams Community Planner Relationship Specialty Start Date End Date Tiffanie Avery MD [address] [place] [address] PCP - General Family Medicine 12/22/23 Stew Hankins III, MD Gastroenterology 10/25/10 Kirby Kaur MD [address] [place] [address] [address] [place] [address] Family Medicine 12/23/11 Nicholas Cristobal MD [address] [place] [address] [address] [place] [address] Gastroenterology 08/08/14 Charlie Ayala PA-C [address] [place] [address] [place] [address] Physician Demonstrator Sales 02/05/15 Sully Castillo LPN 02/22/15 Florin Vicente MD [address] [facility] [place] [address] Pulmonary Disease 01/19/18 Sindi Mcfarland MA 09/22/18 Mao Powell MD [address] [place] [address] [place] [address] Orthopedic Surgery 05/22/21 Jeff Douglas MD [address] [place] [address] [address] Orthopedic Surgery 07/18/21 documented as of this encounter
--- OUTSIDE RECORDS SUMMARY | 2024-11-28 11:15 | XMS_ITS | Encounter Summary ---
Author Organization [facility] Address [address] [place] [address] Care Team Providers Care Commercial Lending Relationship Manager Name Role Phone Abhi Ruiz MD Primary Care Provider Unavailabl e Rikki Painter DO Primary Care Provider [phone] Nhi AZUL MD, Morris Wilson Unavailable Haven vailable Louie Purdy MD Primary Care Provider [phone] Kirby Kaur MD Unavailable [phone] Maricruz Burris APRN Primary Care Provide r Nicholas Cristobal MD Unavailable Doctor, No Primary Care Provider UnavailCharlie Greenberg PA-C Unavailable [phone] Sully Castillo LPN Unavailable Unavailable Julio Samayoa APRN Primary Care Provider [phone] Julio Samayoa APRN Primary Care Provider [phone] Florin Vicente MD Unavailable Tiffanie Avery MD Primary Care Provider [phone] Sindi Mcfarland MA Unavailable Unavailable Mao Powell MD Unavailable [phone] Jeff Douglas MD Unavailable [phone] Tiffanie Avery MD Primary Care Provider [phone] Encounter Details Date Type Department Care Team (Late st Contact Info) Description 09/05/2006 Historical Encounter Global Abhi Ruiz MD Social [...] AM EDT Office Visit [facility] [address], [address] [place] [address] Marcos Santana APRN [address] [place] [address],[address] [place], [place] [id number] documented as of this encounter Visit Diagnoses Not on filedocumented in this encounter Care Teams Commercial Lending Relationship Manager Relationship Specialty Start Date End Date Abhi Ruiz MD PCP - General 12/29/07 10/04/09 Rikki Painter DO [address] [place] [address] PCP - General Family Medicine 10/05/09 06/12/11 Louie Purdy MD [address] [place] [address] PCP - General Family Medicine 06/13/11 07/05/14 Maricruz Burris APRN [address] [place] [address] PCP - General Nurse Practitioner 07/06/14 11/29/14 Otilia Abreu [place] PCP - General Family Medicine 11/30/14 04/25/15 Julio Samayoa APRN [address] [place] [address] PCP - General nurse practitioner adult care 04/26/15 01/19/17 Julio Samayoa APRN [address] [place], [place] [address] PCP - General Family Practice 01/20/17 01/19/18 Tiffanie Avery MD [address] [place] [address] PCP - General Family Medicine 01/20/18 10/28/23 Tiffanie Avery MD [address] [place] [address] PCP - General Family Medicine 12/22/23 Stew Hankins III, MD Gastroenterology 10/25/10 Kirby Kaur MD [address] [place] [address] Family Medicine 12/23/11 Nicholas Cristobal MD [address] [place] [address] Gastroenterology 08/08/14 Charlie Ayala, PAMindiC [address] [place] [address] Physician Patient Care Nursing Assistant 02/05/15 Sully Castillo LPN 02/22/15 Florin Vicente MD [address] [place] [address] [place] [address] Pulmonary Disease 01/19/18 Sindi Mcfarland MA 09/22/18 Mao Powell MD [address] [place] [address] Orthopedic Surgery 05/22/21 Jeff Douglas MD [address] [place] [address] [place] [address] Orthopedic Surgery 07/18/21 documented as of this encounter
--- OUTSIDE RECORDS SUMMARY | 2024-11-28 11:15 | XMS_ITS | Encounter Summary ---
Author Organization [facility] Address [address] [place] [address] Care Team Providers Care Insurance Sales Agent Name Role Phone Abhi Ruiz MD Primary Care Provider Unavailabl e Rikki Painter DO Primary Care Provider [phone] Nhi AZUL MD, Morris Wilson Unavailable Haven vailable Louie Purdy MD Primary Care Provider [phone] Kirby Kaur MD Unavailable [phone] Maricruz Burris APRN Primary Care Provide r Nicholas Cristobal MD Unavailable Doctor, No Primary Care Provider UnavailCharlie Greenberg PA-C Unavailable [phone] Sully Castillo LPN Unavailable Unavailable Julio Samayoa APRN Primary Care Provider [phone] Julio Samayoa APRN Primary Care Provider [phone] Florin Vicente MD Unavailable Tiffanie Avery MD Primary Care Provider [phone] Sindi Mcfarland MA Unavailable Unavailable Mao Powell MD Unavailable [phone] Jeff Douglas MD Unavailable [phone] Tiffanie Avery MD Primary Care Provider [phone] Encounter Details Date Type Department Care Team (Late st Contact Info) Description 03/01/2008 Historical Encounter Global Abhi Ruiz MD Social [...] AM EDT Office Visit [facility] [address], [address] [place] [address] Marcos Santana APRN [address] [place] [address],[address] [place], [place] [id number] documented as of this encounter Visit Diagnoses Not on filedocumented in this encounter Care Teams Insurance Sales Agent Relationship Specialty Start Date End Date Abhi Ruzi MD PCP - General 12/29/07 10/04/09 Rikki Painter DO [address] [place] [address] PCP - General Family Medicine 10/05/09 06/12/11 Louie Purdy MD [address] [place] [address] PCP - General Family Medicine 06/13/11 07/05/14 Maricruz Burris APRN [address] [place] [address] PCP - General Nurse Practitioner 07/06/14 11/29/14 Otilia Abreu [place] PCP - General Family Medicine 11/30/14 04/25/15 Julio Samayoa APRN [address] [place] [address] PCP - General nurse practitioner adult care 04/26/15 01/19/17 Julio Samayoa APRN [address] [place], [place] [address] PCP - General Family Practice 01/20/17 01/19/18 Tiffanie Avery MD [address] [place] [address] PCP - General Family Medicine 01/20/18 10/28/23 Tiffanie Avery MD [address] [place] [address] PCP - General Family Medicine 12/22/23 Stew Hankins III, MD Gastroenterology 10/25/10 Kirby Kaur MD [address] [place] [address] Family Medicine 12/23/11 Nicholas Cristobal MD [address] [place] [address] Gastroenterology 08/08/14 Charlie Ayala, PAMindiC [address] [place] [address] Physician Net Application Support Specialist 02/05/15 Sully Castillo LPN 02/22/15 Florin Vicente MD [address] [place] [address] [place] [address] Pulmonary Disease 01/19/18 Sindi Mcfarland MA 09/22/18 Mao Powell MD [address] [place] [address] Orthopedic Surgery 05/22/21 Jeff Douglas MD [address] [place] [address] [place] [address] Orthopedic Surgery 07/18/21 documented as of this encounter
--- OUTSIDE RECORDS SUMMARY | 2024-11-28 11:15 | XMS_ITS | Encounter Summary ---
Author Organization [facility] Address [address] [place] [address] Care Team Providers Care Bait Man Name Role Phone Nhi AZUL MD, Morris Wilson Unavailable Haven Kirby Bustamante MD Unavailable [phone] Nicholas Cristobal MD Unavailable Charlie Ayala PA-C Unavailable Sully Castillo LPN Unavailable Unavailable Julio Samayoa APRN Primary Care Provider [phone] Julio Samayoa APRN Primary Care Provider Florin Vicente MD Unavailable Tiffanie Avery MD Primary Care Provider [phone] Sindi Mcfarland MA Unavailable Unavailable Mao Powell MD Unavailable [phone] Jeff Douglas MD Unavailable [phone] Tiffanie Avery MD Primary Care Provider [phone] Encounter Details Date Type Department Care Team (Late st Contact Info) Description 05/15/2015 Telephone [facility] [address] [place] [address] [address] [place] [address] Charlie Ayala PA-C [address] [place] [address] Social History Tobacco Use Types Packs/Day Years [...] Miscellaneous Notes * Telephone Encounter - An Fisher - 05/15/2015 8:59 AM EST Patient is going to do his lab work tomorrow, wants to know if you could add a cholesterol lab in there as well. documented in this encounter Plan of Treatment Upcoming Encounters Date Type Department Care Team ([facility] st Contact Info) Description 12/05/2024 9:30 AM EDT [facility] [address], [address] [place] [address] Marcos Santana, YANNICK [address] [place] [address],[address] [place] [address] documented as of this encounter Results * Lipid Panel (05/22/2015 8:50 AM EST) CHOLESTEROL 184 10 - 200 mg/dL 05/22/2015 12:53 PM EST [facility] TRIGLYCERIDE 87 46 - 236 mg/dL 05/22/2015 12:53 PM EST [facility] HDL 56.0 27.0 - 67.0 mg/dL 05/22/2015 12:53 PM EST [facility] VLDL 17.4 mg/dL 05/22/2015 12:53 PM EST [facility] LDL 110.6 mg/dL 05/22/2015 12:53 PM EST [facility] Comment: CAP STANDARDIZED LDL-CHOLESTEROL VALUES <130-DESIRABLE 130-159 BORDERLINE/HIGH RISK >160-HIGH RISK RISK 1, MALE 3.29 05/22/2015 12:53 PM EST [facility] Comment: TOTAL CHOL/HDL 1/2 AVERAGE 3.43 AVERAGE 4.97 2 X AVERAGE 9.55 3 X AVERAGE 23.39 RISK 2, MALE 1.98 05/22/2015 12:53 PM EST [facility] Comment: LDL/HDL 1/2 AVERAGE 1.00 AVERAGE 3.55 2 X AVERAGE 6.25 3 X AVERAGE 7.99 RISK 1, FEMALE 3.29 05/22/2015 12:53 PM EST [facility] Comment: TOTAL CHOL/HDL 1/2 AVERAGE 3.27 AVERAGE 4.44 2 X AVERAGE 7.05 3 X AVERAGE 11.04 RISK 2, FEMALE 1.98 05/22/2015 12:53 PM EST [facility] Comment: LDL/HDL 1/2 AVERAGE 1.47 AVERAGE 3.22 2 X AVERAGE 5.03 3 X AVERAGE 6.14 05/22/2015 8:50 AM EST 05/22/2015 12:27 PM EST Charlie Ayala PA-C CHEMISTRY ORDERABLES Final Result Performing Organization Address City/State/[facility] Co de Phone Number [facility] [address] [place] [address] documented in this encounter Visit Diagnoses Diagnosis HLD (hyperlipidemia)- Primary Other and unspecified hyperlipidemia documented in this encounter Care Teams Bait Man Relationship Specialty Start Date End Date Julio Samayoa APRN [address] [place] [address] PCP - General nurse practitioner adult care 04/26/15 01/19/17 Julio Samayoa APRN [address] [place] [address] PCP - General Family Practice 01/20/17 01/19/18 Tiffanie Avery MD [address] [place] [address] PCP - General Family Medicine 01/20/18 10/28/23 Tiffanie Avery MD [address] [place] [address] PCP - General Family Medicine 12/22/23 Stew Hankins III, MD Gastroenterology 10/25/10 Kirby Kaur MD [address] [place] [address] [place] [address] Family Medicine 12/23/11 Nicholas Cristobal MD [address] [place] [address] [place] [address] Gastroenterology 08/08/14 Charlie Ayala PA-C [address] [place] [address] Physician Shank Skinner 02/05/15 Sully Castillo LPN 02/22/15 [place] [address] [place] [address] [place] [address] Pulmonary Disease 01/19/18 Sindi Mcfarland, MA 09/22/18 Mao Powell MD [address] [place] [address] [place] [address] Orthopedic Surgery 05/22/21 Jeff Douglas MD [address] [place] [address] [place] [address] Orthopedic Surgery 07/18/21 documented as of this encounter
--- OUTSIDE RECORDS SUMMARY | 2024-11-28 11:15 | XMS_ITS | Encounter Summary ---
Author Organization [facility] Address [address] [place] [address] Care Team Providers Care Student Specialist Name Role Phone Rikki Painter DO Primary Care Provider [phone] Nhi AZUL MD, Morris Wilson Unavailable Haven Louie Pace MD Primary Care Provider [phone] Kirby Kaur MD Unavailable [phone] Maricruz Burris APRN Primary Care Provide r Nicholas Cristobal MD Unavailable Doctor, No Primary Care Provider UnavailCharlie Greenberg PA-C Unavailable [phone] Sully Castillo LPN Unavailable Unavailable Julio Samayoa APRN Primary Care Provider [phone] Julio Samayoa APRN Primary Care Provider [phone] Florin Vicente MD Unavailable Tiffanie Avery MD Primary Care Provider Sindi Mcfarland MA Unavailable Unavailable Mao Powell MD Unavailable [phone] Jeff Douglas MD Unavailable [phone] Tiffanie Avery MD Primary Care Provider [phone] Encounter Details Date Type Department Care Team (Late st Contact Info) Description 01/29/2011 Orders Only [facility] [address] [place] [address] Rikki Painter DO [address] [place] [address] [place] [address] Anxiety (Primary Dx) Social History Tobacco Use Types [...] AM EDT Office Visit [facility] [address], [address] [place] [address] Marcos Santana APRN [address] [place] [address],[address] [place] [address] documented as of this encounter Visit Diagnoses Diagnosis Anxiety- Primary Anxiety state, unspecified documented in this encounter Care Teams Student Specialist Relationship Specialty Start Date End Date Rikki Painter DO [address] [place] [address] PCP - General Family Medicine 10/05/09 06/12/11 Louie Purdy MD [address] [place] [address] PCP - General Family Medicine 06/13/11 07/05/14 Maricruz Burris ADOLESCENT PSYCHIATRIST [address] [place] [address] PCP - General Nurse Practitioner 07/06/14 11/29/14 Otilia Abreu MA PCP - General Family Medicine 11/30/14 04/25/15 Julio Samayoa APRN [address] [place] [address] PCP - General nurse practitioner adult care 04/26/15 01/19/17 Julio Samayoa APRN [address] [place] [id number] PCP - General Family Practice 01/20/17 01/19/18 Tiffanie Avery MD [address] [place] [address] PCP - General Family Medicine 01/20/18 10/28/23 Tiffanie Avery MD [address] [place] [address] PCP - General Family Medicine 12/22/23 Stew Hankins III, MD Gastroenterology 10/25/10 Kirby Kaur MD [address] [place] [address] Family Medicine 12/23/11 Nicholas Cristobal MD [address] [place] [address] Gastroenterology 08/08/14 Charlie Ayala, PA-C [address] [place] [address] Physician Community Health Nurse Staff 02/05/15 Sully Castillo LPN 02/22/15 Florin Vicente MD [address] [place] [address] [address] Pulmonary Disease 01/19/18 Sindi Mcfarland MA 09/22/18 Mao Powell MD [address] [place] [address] Orthopedic Surgery 05/22/21 Jeff Douglas MD [address] [place] [address] Orthopedic Surgery 07/18/21 documented as of this encounter
--- OUTSIDE RECORDS SUMMARY | 2024-11-28 11:15 | XMS_ITS | Encounter Summary ---
Author Organization [facility] Address [address] [place] [address] Care Team Providers Care Braze Operator Name Role Phone Abhi Ruiz MD Primary Care Provider Unavailabl e Rikki Painter DO Primary Care Provider [phone] Nhi AZUL MD, Morris Wilson Unavailable Haven vailable Louie Purdy MD Primary Care Provider [phone] Kirby Kaur MD Unavailable [phone] Maricruz Burris APRN Primary Care Provide r Nicholas Cristobal MD Unavailable Doctor, No Primary Care Provider UnavailCharlie Greenberg PA-C Unavailable [phone] Sully Castillo LPN Unavailable Unavailable Julio Samayoa APRN Primary Care Provider [phone] Julio Samayoa APRN Primary Care Provider [phone] Florin Vicente MD Unavailable Tiffanie Avery MD Primary Care Provider [phone] Sindi Mcfarland MA Unavailable Unavailable Mao Powell MD Unavailable [phone] Jeff Douglas MD Unavailable [phone] Tiffanie Avery MD Primary Care Provider [phone] Encounter Details Date Type Department Care Team (Late st Contact Info) Description 08/11/1991 Historical Encounter [place], [place] Social History Tobacco Use Types Packs/Day Years [...] AM EDT Office Visit [facility] [address], [address] [place] [address] Marcos Santana APRN [address] [place] [address],[address] [place], [place] [address] documented as of this encounter Visit Diagnoses Not on filedocumented in this encounter Care Teams Braze Operator Relationship Specialty Start Date End Date Abhi Ruiz MD PCP - General 12/29/07 10/04/09 Rikki Painter DO [address] [place] [address] PCP - General Family Medicine 10/05/09 06/12/11 Louie Purdy MD [address] [place] [address] PCP - General Family Medicine 06/13/11 07/05/14 Maricruz Burris APRN [address] [place] [address] PCP - General Nurse Practitioner 07/06/14 11/29/14 Otilia Abreu [place], [place] PCP - General Family Medicine 11/30/14 04/25/15 Julio Samayoa APRN [address] [place] [address] PCP - General nurse practitioner adult care 04/26/15 01/19/17 Julio Samayoa APRN [address] [place] [address] PCP - General Family Practice 01/20/17 01/19/18 Tiffanie Avery MD [address] [place] [address] PCP - General Family Medicine 01/20/18 10/28/23 Tiffanie Avery MD [address] [place] [address] PCP - General Family Medicine 12/22/23 Stew Hankins III, MD Gastroenterology 10/25/10 Kirby Kaur MD [address] [place] [address] Family Medicine 12/23/11 Nicholas Cristobal MD [address] [place] [address] Gastroenterology 08/08/14 Charlie Ayala, PAMindiC [address] [place] [address] Physician Judicial Administrative Assistant 02/05/15 Sully Castillo LPN 02/22/15 Florin Vicente MD [address] [place] [address] [address] Pulmonary Disease 01/19/18 Sindi Mcfarland MA 09/22/18 Mao Powell MD [address] [place] [address] Orthopedic Surgery 05/22/21 Jeff Douglas MD [address] [place] [address] [place] [address] Orthopedic Surgery 07/18/21 documented as of this encounter
--- OUTSIDE RECORDS SUMMARY | 2024-11-28 11:15 | XMS_ITS | Encounter Summary ---
Author Organization [facility] Address [address] [place] [address] Care Team Providers Care Varsity Baseball Coach Name Role Phone Nhi AZUL MD, Stew Gonzales Unavailable Haven Kirby Bustamante MD Unavailable [phone] Nicholas Cristobal MD Unavailable Charlie Ayala PA-C Unavailable [phone] Sully Castillo LPN Unavailable Unavailable Florin Vicente MD Unavailable Sindi Mcfarland MA Unavailable Unavailable Mao Powell MD Unavailable [phone] Jeff Duoglas MD Unavailable [phone] Tiffanie Avery MD Primary Care Provider [phone] Encounter Details Date Type Department Care Team (Late st Contact Info) Description 11/17/2023 Telephone [facility] [address], [address] [place] [address] Joann Ayoub MD [address] [place] [address] [address] [place] [address] Social History Tobacco Use Types [...] encounter Miscellaneous Notes * Telephone Encounter - Josee Singletary LPN - 11/17/2023 1:30 PM EDT Spoke with pt and informed that lab orders were placed. * Telephone Encounter - Theresa Sims - 11/17/2023 11:51 AM EDT Pt calling said he has lab work that's needs to be done , but there are no orders in pt has heart cath on 12/01. Can we place the order for them and left them know. documented in this encounter Plan of Treatment Upcoming Encounters Date Type Department Care Team (Late st Contact Info) Description 12/05/2024 9:30 AM EDT Office Visit [facility] [address] [place] [address] Marcos Santana APRN [address] [place] [address],[address] [place] [address] documented as of this encounter Visit Diagnoses Not on filedocumented in this encounter Additional Health Concerns Assessment Noted Time PHQ-9 Depression Total Score: 0 04/01/20 19 2:31 PM EST documented as of this encounter Care Teams Varsity Baseball Coach Relationship Specialty Start Date End Date Tiffanie Avery MD [address] [place] [address] PCP - General Family Medicine 12/22/23 Stew Hankins III, MD Gastroenterology 10/25/10 Kirby Kaur MD [address] [place] [address] [address] [place] [address] Family Medicine 12/23/11 Nicholas Cristobal MD [address] [place] [address] [place] [address] Gastroenterology 08/08/14 Charlie Ayala, ALKA [address] [place] [address] [place] [address] Physician Oceanographic Meteorologist 02/05/15 Sully Castillo LPN 02/22/15 [place] [address] [place] [address] [place] [address] Pulmonary Disease 01/19/18 Sindi Mcfarland MA 09/22/18 Mao Powell MD [address] [place] [address] [place] [address] Orthopedic Surgery 05/22/21 Jeff Douglas MD [address] [place] [address] Orthopedic Surgery 07/18/21 documented as of this encounter
--- OUTSIDE RECORDS SUMMARY | 2024-11-28 11:15 | XMS_ITS | Encounter Summary ---
Author Organization [facility] Address [address] [place] [address] Care Team Providers Care Yacht Rigger Name Role Phone Nhi AZUL MD, Stew Gonzales Unavailable Haven Kirby Bustamante MD Unavailable [phone] Nicholas Cristobal MD Unavailable Charlie Ayala PA-C Unavailable [phone] Sully Castillo LPN Unavailable Unavailable Florin Vicente MD Unavailable Tiffanie Avery MD Primary Care Provider [phone] Sindi Mcfarland MA Unavailable Unavailable Mao Powell MD Unavailable Jeff Douglas MD Unavailable Tiffanie Avery MD Primary Care Provider Reason for Visit * Reason Onset Date Comments Medications Refill 10/21/2018 Encounter Details Date Type Department Care Team (Late st Contact Info) Description 10/21/2018 Refill [facility] [address], [address] [place] [address] Joann Ayoub MD [address] [place] [address] [address] [place] [address] Medications Refill Social History Tobacco [...] encounter Miscellaneous Notes * Telephone Encounter - Nicki Gonzales - 10/21/2018 10:50 AM EDT The patient says [facility] never received the prescription of his Norvasc that was sent on 10/11. Please resend. documented in this encounter Plan of Treatment Upcoming Encounters Date Type Department Care Team (Late st Contact Info) Description 12/05/2024 9:30 AM EDT Office Visit [facility] [address], [address] [place] [address] Marcos Santana APRN [address] [place], [place] [address] [place] [address] documented as of this encounter Visit Diagnoses Diagnosis Coronary artery disease involving [place] coronary artery, angina presence unspecified, unspecified whether [place] or transplanted heart Hypertension, unspecified type Shortness of breath documented in this encounter Additional Health Concerns Assessment Noted Time PHQ-9 Depression Total Score: 0 12/25/19 18 10:45 AM EDT documented as of this encounter Care Teams Yacht Rigger Relationship Specialty Start Date End Date Tiffanie Avery MD [address] [place] [address] PCP - General Family Medicine 01/20/18 10/28/23 Tiffanie Avery MD [address] [place] [address] PCP - General Family Medicine 12/22/23 Stew Hankins III, MD Gastroenterology 10/25/10 Kirby Kaur MD [address] [place] [address] [address] [place] [address] Family Medicine 12/23/11 Nicholas Cristobal MD [address] [place] [address] Gastroenterology 08/08/14 Charlie Ayala PA-C [address] [place] [address] Physician Plating Technician 02/05/15 Sully Castillo LPN 02/22/15 [place] [address] [place] [address] [place] [address] Pulmonary Disease 01/19/18 Sindi Mcfarland MA 09/22/18 Mao Powell MD [address] [place] [address] Orthopedic Surgery 05/22/21 Jeff Douglas MD [address] [place] [address] Orthopedic Surgery 07/18/21 documented as of this encounter
--- OUTSIDE RECORDS SUMMARY | 2024-11-28 11:15 | XMS_ITS | Encounter Summary ---
Author Organization [facility] Address [address] [place] [address] Care Team Providers Care International Editorial Producer Name Role Phone Nhi AZUL MD, Stew Gonzales Unavailable Haven Kirby Bustamante MD Unavailable Nicholas Cristobal MD Unavailable Charlie Ayala PA-C Unavailable Sully Castillo LPN Unavailable Unavailable Florin Vicente MD Unavailable Tiffanie Avery MD Primary Care Provider [phone] Sindi Mcfarland MA Unavailable Unavailable Mao Powell MD Unavailable [phone] Jeff Douglas MD Unavailable [phone] Tiffanie Avery MD Primary Care Provider [phone] Encounter Details Date Type Department Care Team (Late st Contact Info) Description 09/22/2018 Orders Only [facility] [address] [place] [address] [address] [place] [address] Sindi Mcfarland MA JEAN-BAPTISTE (dyspnea on exertion) Social History Tobacco Use Types Packs/Day Years [...] AM EDT Office Visit [facility] [address], [address] [place] [address] Marcos Santana APRN [address] [place] [address],[address] [place], [place] [address] documented as of this encounter Visit Diagnoses Diagnosis JEAN-BAPTISTE (dyspnea on exertion) Other dyspnea and respiratory abnormality documented in this encounter Additional Health Concerns Assessment Noted Time PHQ-9 Depression Total Score: 0 12/25/19 18 10:45 AM EDT documented as of this encounter Care Teams International Editorial Producer Relationship Specialty Start Date End Date Tiffanie Avery MD [address] [place] [address] PCP - General Family Medicine 01/20/18 10/28/23 Tiffanie Avery MD [address] [place] [address] PCP - General Family Medicine 12/22/23 Stew Hankins III, MD Gastroenterology 10/25/10 Kirby Kaur MD [address] [place] [address] Family Medicine 12/23/11 Nicholas Cristobal MD [address] [place] [address] [place] [address] Gastroenterology 08/08/14 Charlie Ayala PA-C [address] [place] [address] Physician Bisque Finisher 02/05/15 Sully Castillo LPN 02/22/15 Florin Vicente MD [address] [facility] [address] [address] Pulmonary Disease 01/19/18 Sindi Mcfarland MA 09/22/18 Mao Powell MD [address] [place] [address] [place] [address] Orthopedic Surgery 05/22/21 Jeff Douglas MD [address] [place] [address] [address] Orthopedic Surgery 07/18/21 documented as of this encounter
--- OUTSIDE RECORDS SUMMARY | 2024-11-28 11:15 | XMS_ITS | Encounter Summary ---
Author Organization [facility] Address [address] [place] [address] Care Team Providers Care Sales Assistants And Salespersons Name Role Phone Abhi Ruiz MD Primary Care Provider Unavailabl e Rikki Painter DO Primary Care Provider [phone] Nhi AZUL MD, Morris Wilson Unavailable Haven vailable Louie Purdy MD Primary Care Provider [phone] Kirby Kaur MD Unavailable [phone] Maricruz Burris APRN Primary Care Provide r Nicholas Cristobal MD Unavailable Doctor, No Primary Care Provider UnavailCharlie Greenberg PA-C Unavailable [phone] Sully Castillo LPN Unavailable Unavailable Julio Samayoa APRN Primary Care Provider [phone] Julio Samayoa APRN Primary Care Provider [phone] Florin Vicente MD Unavailable Tiffanie Avery MD Primary Care Provider [phone] Sindi Mcfarland MA Unavailable Unavailable Mao Powell MD Unavailable [phone] Jeff Douglas MD Unavailable [phone] Tiffanie Avery MD Primary Care Provider Encounter Details Date Type Department Care Team (Late st Contact Info) Description 03/22/2001 Historical Encounter Global Blu Ruiz Social History Tobacco Use Types Packs/Day Years Used Date Smoking Tobacco: Never Assessed Sex and Gender Information Value Date Recorded Sex Assigned at Not on file Legal Sex Male 9:36 PM EST Gender Identity Not on file Sexual Orientation Not on file documented as of this encounter Plan of Treatment Upcoming Encounters Date Type Department Care Team ([facility] st Contact Info) Description 12/05/2024 9:30 AM EDT Office Visit [facility] [address], [address] [place] [address] Marcos Santana APRN [address] [place] [address],[address] [place], [place] [id number] documented as of this encounter Visit Diagnoses Not on filedocumented in this encounter Care Teams Sales Assistants And Salespersons Relationship Specialty Start Date End Date Abhi Ruiz MD PCP - General 12/29/07 10/04/09 Rikki Painter DO [address] [place] [address] PCP - General Family Medicine 10/05/09 06/12/11 Louie Purdy MD [address] [place] [address] PCP - General Family Medicine 06/13/11 07/05/14 Maricruz Burris ASSURANCE ASSISTANT [address] [place] [address] PCP - General Nurse Practitioner 07/06/14 11/29/14 Otilia Abreu [place] PCP - General Family Medicine 11/30/14 04/25/15 Julio Samayoa APRN [address] [place] [address] PCP - General nurse practitioner adult care 04/26/15 01/19/17 Julio Samayoa, YANNICK [address] [place] [address] PCP - General Family Practice 01/20/17 01/19/18 Tiffanie Avery MD [address] [place] [address] PCP - General Family Medicine 01/20/18 10/28/23 Tiffanie Avery MD [address] [place] [address] PCP - General Family Medicine 12/22/23 Stew Hankins III, MD Gastroenterology 10/25/10 Kirby Kaur MD [address] [place] [address] Family Medicine 12/23/11 Nichloas Cristobal MD [address] [place] [address] Gastroenterology 08/08/14 Charlie Ayala, PA-C [address] [place] [address] Physician Soil Biology Teacher 02/05/15 Sully Castillo LPN 02/22/15 Florin Vicente MD [address] [place] [address] [place] [address] Pulmonary Disease 01/19/18 Sindi Mcfarland MA 09/22/18 Mao Powell MD [address] [place] [address] Orthopedic Surgery 05/22/21 Jeff Douglas MD [address] [place], [place] [address] Orthopedic Surgery 07/18/21 documented as of this encounter
--- OUTSIDE RECORDS SUMMARY | 2024-11-28 11:15 | XMS_ITS | Encounter Summary ---
Author Organization [facility] Address [address] [place] [address] Care Team Providers Care Law Office Receptionist Name Role Phone Nhi AZUL MD, Stew Gonzales Unavailable Haven Kirby Bustamante MD Unavailable [phone] Nicholas Cristobal MD Unavailable Charlie Ayala PA-C Unavailable [phone] Sully Castillo LPN Unavailable Unavailable Julio Samayoa APRN Primary Care Provider [phone] Julio Samayoa APRN Primary Care Provider Florin Vicente MD Unavailable Tiffanie Avery MD Primary Care Provider Sindi Mcfarland MA Unavailable Unavailable Mao Powell MD Unavailable [phone] Jeff Douglas MD Unavailable [phone] Tiffanie Avery MD Primary Care Provider [phone] Reason for Visit * Reason Onset Date Comments Other 07/04/2015 Medicare annual physical Encounter Details Date Type Department Care Team (Late st Contact Info) Description 07/04/2015 Telephone [facility] [address] [place] [address] Julio Samayoa APRN [address] [place] [address] Other (Medicare annual physical) Social History Tobacco Use Types Packs/Day Years [...] * Telephone Encounter - Taya Dean - 07/04/2015 7:03 PM EST Left msg for patient to call to schedule annual Medicare physical on 07/06/15 with Beau Samayoa. documented in this encounter Plan of Treatment Upcoming Encounters Date Type Department Care Team (Late st Contact Info) Description 12/05/2024 9:30 AM EDT Office Visit [facility] [address], [address] [place] [address] Marcos Santana APRN [address] [place] [address],[address] [place] [address] documented as of this encounter Visit Diagnoses Not on filedocumented in this encounter Care Teams Law Office Receptionist Relationship Specialty Start Date End Date Julio Samayoa APRN [address] [place] [address] PCP - General nurse practitioner adult care 04/26/15 01/19/17 Julio Samayoa APRN [address] [place] [address] PCP - General Family Practice 01/20/17 01/19/18 Tiffanie Avery MD [address] [place] [address] PCP - General Family Medicine 01/20/18 10/28/23 Tiffanie Avery MD [address] [place] [address] PCP - General Family Medicine 12/22/23 Stew Hankins III, MD Gastroenterology 10/25/10 Kirby Kaur MD [address] [place] [address] [place] [address] Family Medicine 12/23/11 Nicholas Cristobal MD [address] [place] [address] [address] [place] [address] Gastroenterology 08/08/14 Charlie Aylaa, ALKA [address] [place] [address] [address] [place] [address] Physician Alto Singer 02/05/15 Sully Castillo LPN 02/22/15 Florin Vicente MD [address] [facility] [address] [address] Pulmonary Disease 01/19/18 Sindi Mcfarland MA 09/22/18 Mao Powell MD [address] [place] [address] [place] [address] Orthopedic Surgery 05/22/21 Jeff Douglas MD [address] [place] [address] [address] Orthopedic Surgery 07/18/21 documented as of this encounter
--- OUTSIDE RECORDS SUMMARY | 2024-11-28 11:16 | XMS_ITS | Encounter Summary ---
Author Organization [facility] Address [address] [place] [address] Care Team Providers Care Superintendent Pipelines Name Role Phone Abhi Ruiz MD Primary Care Provider Unavailabl e Rikki Painter DO Primary Care Provider [phone] Nhi AZUL MD, Morris Wilson Unavailable Haven vailable Louie Purdy MD Primary Care Provider [phone] Kirby Kaur MD Unavailable [phone] Maricruz Burris APRN Primary Care Provide r Nicholas Cristobal MD Unavailable Doctor, No Primary Care Provider UnavailCharlie Greenberg PA-C Unavailable [phone] Sully Castillo LPN Unavailable Unavailable Julio Samayoa APRN Primary Care Provider [phone] Julio Samayoa APRN Primary Care Provider [phone] Florin Vicente MD Unavailable Tiffanie Avery MD Primary Care Provider [phone] Sindi Mcfarland MA Unavailable Unavailable Mao Powell MD Unavailable [phone] Jeff Douglas MD Unavailable [phone] Tiffanie Avery MD Primary Care Provider Encounter Details Date Type Department Care Team (Late st Contact Info) Description 11/08/2002 Historical Encounter Global Blu Ruiz Social History Tobacco Use Types Packs/Day Years Used Date Smoking Tobacco: Never Assessed Sex and Gender Information Value Date Recorded Sex Assigned at Not on file Legal Sex Male 9:36 PM EST Gender Identity Not on file Sexual Orientation Not on file documented as of this encounter Plan of Treatment Upcoming Encounters Date Type Department Care Team ([facility] st Contact Info) Description 12/05/2024 9:30 AM EDT Office Visit [facility] [address], [address] [place] [address] Marcos Santana APRN [address] [place] [address],[address] [place], [place] [id number] documented as of this encounter Visit Diagnoses Not on filedocumented in this encounter Care Teams Superintendent Pipelines Relationship Specialty Start Date End Date Abhi Ruiz MD PCP - General 12/29/07 10/04/09 Rikki Painter DO [address] [place] [address] PCP - General Family Medicine 10/05/09 06/12/11 Louie Purdy MD [address] [place] [address] PCP - General Family Medicine 06/13/11 07/05/14 Maricruz Burris SENIOR DOT NET DEVELOPER [address] [place] [address] PCP - General Nurse Practitioner 07/06/14 11/29/14 Otilia Abreu [place] PCP - General Family Medicine 11/30/14 04/25/15 Julio Samayoa APRN [address] [place] [address] PCP - General nurse practitioner adult care 04/26/15 01/19/17 Julio Samayoa, YANNICK [address] [place] [address] PCP - General Family Practice 01/20/17 01/19/18 Tiffanie Avery MD [address] [place] [address] PCP - General Family Medicine 01/20/18 10/28/23 Tiffanie Avery MD [address] [place] [address] PCP - General Family Medicine 12/22/23 Stew Hankins III, MD Gastroenterology 10/25/10 Kirby Kaur MD [address] [place] [address] Family Medicine 12/23/11 Nicholas Cristobal MD [address] [place] [address] Gastroenterology 08/08/14 Charlie Ayala, PA-C [address] [place] [address] Physician Lay Out Drafter 02/05/15 Sully Castillo LPN 02/22/15 Florin Vicente MD [address] [place] [address] [place] [address] Pulmonary Disease 01/19/18 Sindi Mcfarland MA 09/22/18 Mao Powell MD [address] [place] [address] Orthopedic Surgery 05/22/21 Jeff Douglas MD [address] [place], [place] [address] Orthopedic Surgery 07/18/21 documented as of this encounter
--- OUTSIDE RECORDS SUMMARY | 2024-11-28 11:16 | XMS_ITS | Encounter Summary ---
Author Organization [facility] Address [address] [place] [address] Care Team Providers Care Private Detective Name Role Phone Abhi Ruiz MD Primary Care Provider Unavailabl e Rikki Painter DO Primary Care Provider [phone] Nhi AZUL MD, Morris Wilson Unavailable Haven vailable Louie Purdy MD Primary Care Provider [phone] Kirby Kaur MD Unavailable [phone] Maricruz Burris APRN Primary Care Provide r Nicholas Cristobal MD Unavailable Doctor, No Primary Care Provider UnavailCharlie Greenberg PA-C Unavailable [phone] Sully Castillo LPN Unavailable Unavailable Julio Samayoa APRN Primary Care Provider [phone] Julio Samayoa APRN Primary Care Provider [phone] Florin Vicente MD Unavailable Tiffanie Avery MD Primary Care Provider [phone] Sindi Mcfarland MA Unavailable Unavailable Mao Powell MD Unavailable [phone] Jeff Douglas MD Unavailable [phone] Tiffanie Avery MD Primary Care Provider Encounter Details Date Type Department Care Team (Late st Contact Info) Description 08/23/2002 Historical Encounter Global Blu Ruiz Social History [...] AM EDT Office Visit [facility] [address], [address] [place] [address] Marcos Santana APRN [address] [place] [address],[address] [place], [place] [address] documented as of this encounter Visit Diagnoses Not on filedocumented in this encounter Care Teams Private Detective Relationship Specialty Start Date End Date Ahbi Ruiz MD PCP - General 12/29/07 10/04/09 Rikki Painter DO [address] [place] [address] PCP - General Family Medicine 10/05/09 06/12/11 Louie Purdy MD [address] [place] [address] PCP - General Family Medicine 06/13/11 07/05/14 Maricruz Burris NETWORK SPECIALIST [address] [place] [address] PCP - General Nurse Practitioner 07/06/14 11/29/14 Otilia Abreu [place], [place] PCP - General Family Medicine 11/30/14 04/25/15 Julio Samaoya APRN [address] [place] [address] PCP - General nurse practitioner adult care 04/26/15 01/19/17 Julio Samayoa, YANNICK [address] [place] [address] PCP - General Family Practice 01/20/17 01/19/18 Tiffanie Avery MD [address] [place] [address] PCP - General Family Medicine 01/20/18 10/28/23 Tiffanie Avery MD [address] [place] [address] PCP - General Family Medicine 12/22/23 Stew Hankins III, MD Gastroenterology 10/25/10 Kirby Kaur MD [address] [place] [address] Family Medicine 12/23/11 Nicholas Cristobal MD [address] [place] [address] Gastroenterology 08/08/14 Charlie Ayala, PA-C [address] [place] [address] Physician Manager Sound 02/05/15 Sluly Castillo LPN 02/22/15 Florin Vicente MD [address] [place] [address] [place] [address] Pulmonary Disease 01/19/18 Sindi Mcfarland MA 09/22/18 Mao Powell MD [address] [place] [address] Orthopedic Surgery 05/22/21 Jeff Douglas MD [address] [place], [place] [address] Orthopedic Surgery 07/18/21 documented as of this encounter
--- OUTSIDE RECORDS SUMMARY | 2024-11-28 11:16 | XMS_ITS | Encounter Summary ---
Author Organization [facility] Address [address] [place] [address] Care Team Providers Care Volunteer Manager Name Role Phone Abhi Ruiz MD Primary Care Provider Unavailabl e Rikki Painter DO Primary Care Provider [phone] Nhi AZUL MD, Morris Wilson Unavailable Haven vailable Louie Purdy MD Primary Care Provider [phone] Kirby Kaur MD Unavailable [phone] Maricruz Burris APRN Primary Care Provide r Nicholas Cristobal MD Unavailable Doctor, No Primary Care Provider UnavailCharlie Greenberg PA-C Unavailable [phone] Sully Castillo LPN Unavailable Unavailable Julio Samayoa APRN Primary Care Provider [phone] Julio Samayoa APRN Primary Care Provider [phone] Florin Vicente MD Unavailable Tiffanie Avery MD Primary Care Provider [phone] Sindi Mcfarland MA Unavailable Unavailable Mao Powell MD Unavailable [phone] Jeff Douglas MD Unavailable [phone] Tiffanie Avery MD Primary Care Provider [phone] Encounter Details Date Type Department Care Team (Late st Contact Info) Description 11/09/2002 Historical Encounter Global Blu Ruiz Social History Tobacco Use Types Packs/Day Years Used Date Smoking Tobacco: Never Assessed Sex and Gender Information Value Date Recorded Sex Assigned at Not on file Legal Sex Male 9:36 PM EST Gender Identity Not on file Sexual Orientation Not on file documented as of this encounter Plan of Treatment Upcoming Encounters Date Type Department Care Team ([facility] st Contact Info) Description 12/05/2024 9:30 AM EDT Office Visit [facility] [address], [address] [place] [address] Marcos Santana APRN [address] [place] [address],[address] [place], [place] [id number] documented as of this encounter Visit Diagnoses Not on filedocumented in this encounter Care Teams Volunteer Manager Relationship Specialty Start Date End Date Abhi Ruiz MD PCP - General 12/29/07 10/04/09 Rikki Painter DO [address] [place] [address] PCP - General Family Medicine 10/05/09 06/12/11 Louie Purdy MD [address] [place] [address] PCP - General Family Medicine 06/13/11 07/05/14 Maricruz Burris DOUGHNUT FRYER [address] [place] [address] PCP - General Nurse Practitioner 07/06/14 11/29/14 Otilia Abreu [place] PCP - General Family Medicine 11/30/14 04/25/15 Julio Samayoa APRN [address] [place] [address] PCP - General nurse practitioner adult care 04/26/15 01/19/17 Julio Samayoa, YANNICK [address] [place] [address] PCP - General Family Practice 01/20/17 01/19/18 Tiffanie Avery MD [address] [place] [address] PCP - General Family Medicine 01/20/18 10/28/23 Tiffanie Avery MD [address] [place] [address] PCP - General Family Medicine 12/22/23 Stew Hankins III, MD Gastroenterology 10/25/10 Kirby Kaur MD [address] [place] [address] Family Medicine 12/23/11 Nicholas Cristobal MD [address] [place] [address] Gastroenterology 08/08/14 Charlie Ayala, PA-C [address] [place] [address] Physician Rate And Cost Analyst 02/05/15 Sully Castillo LPN 02/22/15 Florin Vicente MD [address] [place] [address] [place] [address] Pulmonary Disease 01/19/18 Sindi Mcfarland MA 09/22/18 Mao Powell MD [address] [place] [address] Orthopedic Surgery 05/22/21 Jeff Douglas MD [address] [place], [place] [address] Orthopedic Surgery 07/18/21 documented as of this encounter
--- OUTSIDE RECORDS SUMMARY | 2024-11-28 11:16 | XMS_ITS | Encounter Summary ---
Author Organization [facility] Address [address] [place] [address] Care Team Providers Care Telecommunications Equipment Installer Name Role Phone Abhi Ruiz MD Primary Care Provider Unavailabl e Rikki Painter DO Primary Care Provider [phone] Nhi AZUL MD, Morris Wilson Unavailable Haven vailable Louie Purdy MD Primary Care Provider [phone] Kirby Kaur MD Unavailable [phone] Maricruz Burris APRN Primary Care Provide r Nicholas Cristobal MD Unavailable Doctor, No Primary Care Provider UnavailCharlie Greenberg PA-C Unavailable [phone] Sully Castillo LPN Unavailable Unavailable Julio Samayoa APRN Primary Care Provider [phone] Julio Samayoa APRN Primary Care Provider [phone] Florin Vicente MD Unavailable Tiffanie Avery MD Primary Care Provider [phone] Sindi Mcfarland MA Unavailable Unavailable Mao Powell MD Unavailable [phone] Jeff Douglas MD Unavailable [phone] Tiffanie Avery MD Primary Care Provider Encounter Details Date Type Department Care Team (Late st Contact Info) Description 08/30/2002 Historical Encounter Global Rikki Collier [address] [place], [place] [id number] Social History Tobacco Use Types Packs/Day Years [...] 9:30 AM EDT Office Visit [facility] [address], [address] [place] [address] Marcos Santana APRN [address] [place] [address],[address] [place] [address] documented as of this encounter Visit Diagnoses Not on filedocumented in this encounter Care Teams Telecommunications Equipment Installer Relationship Specialty Start Date End Date Abhi Ruiz MD PCP - General 12/29/07 10/04/09 Rikki Painter DO [address] [place] [address] PCP - General Family Medicine 10/05/09 06/12/11 Louie Purdy MD [address] [place] [address] PCP - General Family Medicine 06/13/11 07/05/14 Maricruz Burris APRN [address] [place] [address] PCP - General Nurse Practitioner 07/06/14 11/29/14 Otilia Abreu [place] PCP - General Family Medicine 11/30/14 04/25/15 Julio Samayoa APRN [address] [place] [address] PCP - General nurse practitioner adult care 04/26/15 01/19/17 Julio Samayoa APRN [address] [place] [address] PCP - General Family Practice 01/20/17 01/19/18 Tiffanie Avery MD [address] [place] [address] PCP - General Family Medicine 01/20/18 10/28/23 Tiffanie Avery MD [address] [place] [address] PCP - General Family Medicine 12/22/23 Stew Haknins III, MD Gastroenterology 10/25/10 Kirby Kaur MD [address] [place] [address] [address] [place] [address] Family Medicine 12/23/11 Nicholas Cristobal MD [address] [place] [address] [address] [place] [address] Gastroenterology 08/08/14 Charlie Ayala, PAMindiC [address] [place] [address] [address] [place] [address] Physician Associate Principal 02/05/15 Sully Castillo LPN 02/22/15 Florin Vicente MD [address] [facility] [address] [address] Pulmonary Disease 01/19/18 Sindi Mcfarland MA 09/22/18 Mao Powell MD [address] [place] [address] [address] Orthopedic Surgery 05/22/21 Jeff Douglas MD [address] [address] [place] [address] Orthopedic Surgery 07/18/21 documented as of this encounter
--- OUTSIDE RECORDS SUMMARY | 2024-11-28 11:16 | XMS_ITS | Encounter Summary ---
Author Organization [facility] Address [address] [place] [address] Care Team Providers Care Internal Medicine Physician Name Role Phone Abhi Ruiz MD Primary Care Provider Unavailabl e Rikki Painter DO Primary Care Provider [phone] Nhi AZUL MD, Morris Wilson Unavailable Haven vailable Louie Purdy MD Primary Care Provider [phone] Kirby Kaur MD Unavailable [phone] Maricruz Burris APRN Primary Care Provide r Nicholas Cristobal MD Unavailable Doctor, No Primary Care Provider UnavailCharlie Greenberg PA-C Unavailable [phone] Sully Castillo LPN Unavailable Unavailable Julio Samayoa APRN Primary Care Provider [phone] Julio Samayoa APRN Primary Care Provider [phone] Florin Vicente MD Unavailable Tiffanie Avery MD Primary Care Provider [phone] Sindi Mcfarland MA Unavailable Unavailable Mao Powell MD Unavailable [phone] Jeff Douglas MD Unavailable [phone] Tiffanie Avery MD Primary Care Provider [phone] Encounter Details Date Type Department Care Team (Late st Contact Info) Description 12/28/2001 Historical Encounter Global Blu Ruiz Social History Tobacco Use Types Packs/Day Years Used Date Smoking Tobacco: Never Assessed Sex and Gender Information Value Date Recorded Sex Assigned at Not on file Legal Sex Male 9:36 PM EST Gender Identity Not on file Sexual Orientation Not on file documented as of this encounter Plan of Treatment Upcoming Encounters Date Type Department Care Team ([facility] st Contact Info) Description 12/05/2024 9:30 AM EDT Office Visit [facility] [address], [address] [place] [address] Marcos Santana APRN [address] [place] [address],[address] [place], [place] [id number] documented as of this encounter Visit Diagnoses Not on filedocumented in this encounter Care Teams Internal Medicine Physician Relationship Specialty Start Date End Date Abhi Ruiz MD PCP - General 12/29/07 10/04/09 Rikki Painter DO [address] [place] [address] PCP - General Family Medicine 10/05/09 06/12/11 Louie Purdy MD [address] [place] [address] PCP - General Family Medicine 06/13/11 07/05/14 Maricruz Burris GEOTHERMAL HVAC TECHNICIAN [address] [place] [address] PCP - General Nurse Practitioner 07/06/14 11/29/14 Otilia Abreu [place], [place] PCP - General Family Medicine 11/30/14 04/25/15 Julio Samayoa APRN [address] [place] [address] PCP - General nurse practitioner adult care 04/26/15 01/19/17 Julio Samayoa, YANNICK [address] [place] [address] PCP - General Family Practice 01/20/17 01/19/18 Tiffanie Avery MD [address] [place] [address] PCP - General Family Medicine 01/20/18 10/28/23 Tiffanie Avery MD [address] [place] [address] PCP - General Family Medicine 12/22/23 Stew Hankins III, MD Gastroenterology 10/25/10 Kirby Kaur MD [address] [place] [address] Family Medicine 12/23/11 Nicholas Cristobal MD [address] [place] [address] Gastroenterology 08/08/14 Charlie Ayala, PA-C [address] [place] [address] Physician Career Advisor 02/05/15 Sully Castillo LPN 02/22/15 Florin Vicente MD [address] [place] [address] [place] [address] Pulmonary Disease 01/19/18 Sindi Mcfarland MA 09/22/18 Mao Powell MD [address] [place] [address] Orthopedic Surgery 05/22/21 Jeff Douglas MD [address] [place], [place] [address] Orthopedic Surgery 07/18/21 documented as of this encounter
--- OUTSIDE RECORDS SUMMARY | 2024-11-28 11:16 | XMS_ITS | Encounter Summary ---
Author Organization [facility] Address [address] [place] [address] Care Team Providers Care Microfiche Camera Operator Name Role Phone Abhi Ruiz MD Primary Care Provider Unavailabl e Rikki Painter DO Primary Care Provider [phone] Nhi AZUL MD, Morris Wilson Unavailable Haven vailable Louie Purdy MD Primary Care Provider [phone] Kirby Kaur MD Unavailable [phone] Maricruz Burris APRN Primary Care Provide r Nihcolas Cristobal MD Unavailable Doctor, No Primary Care Provider UnavailCharlie Greenberg PA-C Unavailable [phone] Sully Castillo LPN Unavailable Unavailable Julio Samayoa APRN Primary Care Provider [phone] Julio Samayoa APRN Primary Care Provider [phone] Florin Vicente MD Unavailable Tiffanie Avery MD Primary Care Provider [phone] Sindi Mcfarland MA Unavailable Unavailable Mao Powell MD Unavailable [phone] Jeff Douglas MD Unavailable [phone] Tiffanie Avery MD Primary Care Provider [phone] Encounter Details Date Type Department Care Team (Late st Contact Info) Description 02/14/2002 Historical Encounter Global Blu Ruiz Social History Tobacco Use Types Packs/Day Years Used Date Smoking Tobacco: Never Assessed Sex and Gender Information Value Date Recorded Sex Assigned at Not on file Legal Sex Male 9:36 PM EST Gender Identity Not on file Sexual Orientation Not on file documented as of this encounter Plan of Treatment Upcoming Encounters Date Type Department Care Team ([facility] st Contact Info) Description 12/05/2024 9:30 AM EDT Office Visit [facility] [address], [address] [place] [address] Marcos Santana APRN [address] [place] [address],[address] [place], [place] [id number] documented as of this encounter Visit Diagnoses Not on filedocumented in this encounter Care Teams Microfiche Camera Operator Relationship Specialty Start Date End Date Abhi Ruiz MD PCP - General 12/29/07 10/04/09 Rikki Painter DO [address] [place] [address] PCP - General Family Medicine 10/05/09 06/12/11 Louie Purdy MD [address] [place] [address] PCP - General Family Medicine 06/13/11 07/05/14 Maricruz Burris ROBOTYPE OPERATOR [address] [place] [address] PCP - General Nurse Practitioner 07/06/14 11/29/14 Otilia Abreu [place], [place] PCP - General Family Medicine 11/30/14 04/25/15 Julio Samayoa APRN [address] [place] [address] PCP - General nurse practitioner adult care 04/26/15 01/19/17 Julio Samayoa, YANNICK [address] [place] [address] PCP - General Family Practice 01/20/17 01/19/18 Tiffanie Avery MD [address] [place] [address] PCP - General Family Medicine 01/20/18 10/28/23 Tiffanie Avery MD [address] [place] [address] PCP - General Family Medicine 12/22/23 Stew Hankins III, MD Gastroenterology 10/25/10 Kirby Kaur MD [address] [place] [address] Family Medicine 12/23/11 Nicholas Cristobal MD [address] [place] [address] Gastroenterology 08/08/14 Charlie Ayala, PA-C [address] [place] [address] Physician Router Operator 02/05/15 Sully Castillo LPN 02/22/15 Florin Vicente MD [address] [place] [address] [place] [address] Pulmonary Disease 01/19/18 Sindi Mcfarland MA 09/22/18 Mao Powell MD [address] [place] [address] Orthopedic Surgery 05/22/21 Jeff Douglas MD [address] [place], [place] [address] Orthopedic Surgery 07/18/21 documented as of this encounter
--- OUTSIDE RECORDS SUMMARY | 2024-11-28 11:16 | XMS_ITS | Encounter Summary ---
Author Organization [facility] Address [address] [place] [address] Care Team Providers Care Food Service Hotel Runner Name Role Phone Abhi Ruiz MD Primary Care Provider Unavailabl e Rikki Painter DO Primary Care Provider [phone] Nhi AZUL MD, Morris Wilson Unavailable Haven vailable Louie Purdy MD Primary Care Provider [phone] Kirby Kaur MD Unavailable [phone] Maricruz Burris APRN Primary Care Provide r Nicholas Cristobal MD Unavailable Doctor, No Primary Care Provider UnavailCharlie Greenberg PA-C Unavailable [phone] Sully Castillo LPN Unavailable Unavailable Julio Samayoa APRN Primary Care Provider [phone] Julio Samayoa APRN Primary Care Provider [phone] Florin Vicente MD Unavailable Tiffanie Avery MD Primary Care Provider [phone] Sindi Mcfarland MA Unavailable Unavailable Mao Powell MD Unavailable [phone] Jeff Douglas MD Unavailable [phone] Tiffanie Avery MD Primary Care Provider [phone] Encounter Details Date Type Department Care Team (Late st Contact Info) Description 09/28/2002 Historical Encounter Global Blu Ruiz Social History Tobacco Use Types Packs/Day Years Used Date Smoking Tobacco: Never Assessed Sex and Gender Information Value Date Recorded Sex Assigned at Not on file Legal Sex Male 9:36 PM EST Gender Identity Not on file Sexual Orientation Not on file documented as of this encounter Plan of Treatment Upcoming Encounters Date Type Department Care Team ([facility] st Contact Info) Description 12/05/2024 9:30 AM EDT Office Visit [facility] [address], [address] [place] [address] Marcos Santana APRN [address] [place] [address],[address] [place], [place] [id number] documented as of this encounter Visit Diagnoses Not on filedocumented in this encounter Care Teams Food Service Hotel Runner Relationship Specialty Start Date End Date Abhi Ruiz MD PCP - General 12/29/07 10/04/09 Rikki Painter DO [address] [place] [address] PCP - General Family Medicine 10/05/09 06/12/11 Louie Purdy MD [address] [place] [address] PCP - General Family Medicine 06/13/11 07/05/14 Maricruz Burris LEATHER CRAFTER [address] [place] [address] PCP - General Nurse Practitioner 07/06/14 11/29/14 Otilia Abreu [place], [place] PCP - General Family Medicine 11/30/14 04/25/15 Julio Samayoa APRN [address] [place] [address] PCP - General nurse practitioner adult care 04/26/15 01/19/17 Julio Samayoa, YANNICK [address] [place] [address] PCP - General Family Practice 01/20/17 01/19/18 Tiffanie Avery MD [address] [place] [address] PCP - General Family Medicine 01/20/18 10/28/23 Tiffanie Avery MD [address] [place] [address] PCP - General Family Medicine 12/22/23 Stew Hankins III, MD Gastroenterology 10/25/10 Kirby Kaur MD [address] [place] [address] Family Medicine 12/23/11 Nicholas Cristobal MD [address] [place] [address] Gastroenterology 08/08/14 Charlie Ayala, PA-C [address] [place] [address] Physician Integrity Consultant 02/05/15 Sully Castillo LPN 02/22/15 Florin Vicente MD [address] [place] [address] [place] [address] Pulmonary Disease 01/19/18 Sindi Mcfarland MA 09/22/18 Mao Powell MD [address] [place] [address] Orthopedic Surgery 05/22/21 Jeff Douglas MD [address] [place], [place] [address] Orthopedic Surgery 07/18/21 documented as of this encounter
--- OUTSIDE RECORDS SUMMARY | 2024-11-28 11:16 | XMS_ITS | Encounter Summary ---
Author Organization [facility] Address [address] [place] [address] Care Team Providers Care Well Drill Operator Name Role Phone Abhi Ruiz MD Primary Care Provider Unavailabl e Rikki Painter DO Primary Care Provider [phone] Nhi AZUL MD, Morris Wilson Unavailable Haven vailable Louie Purdy MD Primary Care Provider [phone] Kirby Kaur MD Unavailable [phone] Maricruz Burris APRN Primary Care Provide r Nicholas Cristobal MD Unavailable Doctor, No Primary Care Provider UnavailCharlie Greenberg PA-C Unavailable [phone] Sully Castillo LPN Unavailable Unavailable Julio Samayoa APRN Primary Care Provider [phone] Julio Samayoa APRN Primary Care Provider [phone] Florin Vicente MD Unavailable Tiffanie Avery MD Primary Care Provider [phone] Sindi Mcfarland MA Unavailable Unavailable Mao Powell MD Unavailable [phone] Jeff Douglas MD Unavailable [phone] Tiffanie Avery MD Primary Care Provider Encounter Details Date Type Department Care Team (Late st Contact Info) Description 04/25/2002 Historical Encounter Global Blu Ruiz Social History Tobacco Use Types Packs/Day Years Used Date Smoking Tobacco: Never Assessed Sex and Gender Information Value Date Recorded Sex Assigned at Not on file Legal Sex Male 9:36 PM EST Gender Identity Not on file Sexual Orientation Not on file documented as of this encounter Plan of Treatment Upcoming Encounters Date Type Department Care Team ([facility] st Contact Info) Description 12/05/2024 9:30 AM EDT Office Visit [facility] [address], [address] [place] [address] Marcos Santana APRN [address] [place] [address],[address] [place], [place] [id number] documented as of this encounter Visit Diagnoses Not on filedocumented in this encounter Care Teams Well Drill Operator Relationship Specialty Start Date End Date Abhi Ruiz MD PCP - General 12/29/07 10/04/09 Rikki Painter DO [address] [place] [address] PCP - General Family Medicine 10/05/09 06/12/11 Louie Purdy MD [address] [place] [address] PCP - General Family Medicine 06/13/11 07/05/14 Maricruz Burris SECRETARY BOOK KEEPER [address] [place] [address] PCP - General Nurse Practitioner 07/06/14 11/29/14 Otilia Abreu [place] PCP - General Family Medicine 11/30/14 04/25/15 Julio Samayoa APRN [address] [place] [address] PCP - General nurse practitioner adult care 04/26/15 01/19/17 Julio Samayoa, YANNICK [address] [place] [address] PCP - General Family Practice 01/20/17 01/19/18 Tiffanie Avery MD [address] [place] [address] PCP - General Family Medicine 01/20/18 10/28/23 Tiffanie Avery MD [address] [place] [address] PCP - General Family Medicine 12/22/23 Stew Hankins III, MD Gastroenterology 10/25/10 Kirby Kaur MD [address] [place] [address] Family Medicine 12/23/11 Nicholas Cristobal MD [address] [place] [address] Gastroenterology 08/08/14 Charlie Ayala, PA-C [address] [place] [address] Physician Auto Polisher 02/05/15 Sully Castillo LPN 02/22/15 Florin Vicente MD [address] [place] [address] [place] [address] Pulmonary Disease 01/19/18 Sindi Mcfarland MA 09/22/18 Mao Powell MD [address] [place] [address] Orthopedic Surgery 05/22/21 Jeff Douglas MD [address] [place], [place] [address] Orthopedic Surgery 07/18/21 documented as of this encounter
--- OUTSIDE RECORDS SUMMARY | 2024-11-28 11:16 | XMS_ITS | Encounter Summary ---
Author Organization [facility] Address [address] [place] [address] Care Team Providers Care Admitting Officer Name Role Phone Abhi Ruiz MD Primary Care Provider Unavailabl e Rikki Painter DO Primary Care Provider [phone] Nhi AZUL MD, Morris Wilson Unavailable Haven vailable Louie Purdy MD Primary Care Provider [phone] Kirby Kaur MD Unavailable [phone] Maricruz Burris APRN Primary Care Provide r Nicholas Cristobal MD Unavailable Doctor, No Primary Care Provider UnavailCharlie Greenberg PA-C Unavailable [phone] Sully Castillo LPN Unavailable Unavailable Julio Samayoa APRN Primary Care Provider [phone] Julio Samayoa APRN Primary Care Provider [phone] Florin Vicente MD Unavailable Tiffanie Avery MD Primary Care Provider [phone] Sindi Mcfarland MA Unavailable Unavailable Mao Powell MD Unavailable [phone] Jeff Douglas MD Unavailable [phone] Tiffanie Avery MD Primary Care Provider [phone] Encounter Details Date Type Department Care Team (Late st Contact Info) Description 10/29/2001 Historical Encounter [place], [place] Social History Tobacco Use Types Packs/Day [...] 9:30 AM EDT Office Visit [facility] [address], [address] [place] [address] Marcos Santana APRN [address] [place] [address],[address] [place], [place] [id number] documented as of this encounter Visit Diagnoses Not on filedocumented in this encounter Care Teams Admitting Officer Relationship Specialty Start Date End Date Abhi Ruiz MD PCP - General 12/29/07 10/04/09 Rikki Painter DO [address] [place] [address] PCP - General Family Medicine 10/05/09 06/12/11 Louie Purdy MD [address] [place] [address] PCP - General Family Medicine 06/13/11 07/05/14 Maricruz Burris APRN [address] [place] [address] PCP - General Nurse Practitioner 07/06/14 11/29/14 Otilia Abreu [place] PCP - General Family Medicine 11/30/14 04/25/15 Julio Samayoa APRN [address] [place] [address] PCP - General nurse practitioner adult care 04/26/15 01/19/17 Julio Samayoa APRN [address] [place] [address] PCP - General Family Practice 01/20/17 01/19/18 Tiffanie Avery MD [address] [place] [address] PCP - General Family Medicine 01/20/18 10/28/23 Tiffanie Avery MD [address] [place] [address] PCP - General Family Medicine 12/22/23 Stew Hankins III, MD Gastroenterology 10/25/10 Kirby Kaur MD [address] [place] [address] Family Medicine 12/23/11 Nicholas Cristobal MD [address] [place] [address] Gastroenterology 08/08/14 Charlie Ayala, PAMindiC [address] [place] [address] Physician Motor Equipment Sergeant 02/05/15 Sully Castillo LPN 02/22/15 Florin Vicente MD [address] [place] [address] [address] Pulmonary Disease 01/19/18 Sindi Mcfarland MA 09/22/18 Mao Powell MD [address] [place] [address] Orthopedic Surgery 05/22/21 Jeff Douglas MD [address] [place] [address] [place] [address] Orthopedic Surgery 07/18/21 documented as of this encounter
[2024-11-28 13:00] VITALS: BP 125/83; PULSE 59; RESP 14; O2SAT 98; BMI 25.8
== END 2024-11-28 23:59 | disposition home or self-care (01) ==
PROVIDERS: Visit Provider Nurse Practitioner Family
DX: M51.16 Intervertebral disc disorders with radiculopathy, lumbar region (principal); Z79.891 Long term (current) use of opiate analgesic
CPT/HCPCS: 99212; G0463

== ENCOUNTER 2024-12-28 10:32 | Outpatient (POV) | payer MEDICARE, SELFPAY ==
--- OUTSIDE RECORDS SUMMARY | 2024-04-09 17:30 | XMS_ITS ---
Author Organization [facility] Address [address] [address] Care Team Providers Care Keycase Assembler Name Role Phone RAHEL ASAF Primary Care Provider [phone] GERALDO Alicea Unavailable Unavailable Migration, Provider Unavailable Unavailable REAS[facility] FOR VISIT [facility] Encounter Medications Medication SIG (Take, Route, Frequency, Duration) Notes Start Date End Date Status Aspirin 81 MG 1 tab(s) orally once a day Active Omeprazole 20 MG 1 cap(s) orally once a day; Duration: 90 days Active Brilinta *Please review and pick correct strength-formulat ion from [employer] options. If intended option is not shown, discontinue and re-order from Quick Search* Active Isosorbide Mononitrate ER 30 MG 1 tab(s) orally once a day (in the morning) Active Lisinopril 10 MG 1/2 tab orally once a day Active Vitamin D3 1.25 MG (01589 UT) 1 cap(s) orally once a week; Duration: 30 day(s) 06/20/2019 Active Metoprolol Succinate ER 50 MG 1 tab(s) orally once a day; Duration: 90 days Active Atorvastatin Calcium 40 MG 1 tab(s) orally once a day; Duration: 90 days Active oxyCODONE HCl ER 10 MG 1 tab(s) orally every 12 hours; Duration: 30 day(s) Active Cyclobenzaprine HCl 10 MG 1 tab(s) orally 3 times a day Active Nitroglycerin 0.4 MG/HR 1 PATCH transdermally once a day Active Janumet 50-1000 MG 1 tab(s) orally 2 times a day Active amLODIPine Besylate 2.5 MG 1 tab(s) orally once a day Active Zolpidem Tartrate 10 MG 1 tab(s) orally once a day (at bedtime) Active Encounters Encounter Location Date Provider Diagnosis [facility] [address] [place] [address] 04/09/2024 Provider Migration Vitamin D deficiency, unspecified E55.9 Assessments Encounter Date Diagnosis (ICD Code) Assessment Notes Treatment Notes Treatment Clinical Notes Section Notes 04/09/2024 Vitamin D deficiency, unspecified (ICD-10 - E55.9) Plan Of Treatment Medication Medication Name Sig Start Date Stop Date Notes Vitamin D3 1.25 MG (33701 UT) 1 cap(s) o rally once a week; Duration: 30 day(s) 06/20/2019 Progress Notes * HUNTER SINHADOB:1945 (79 yo M)Acc No.[id number]:04/09/2024 Patient: HUNTER AUSTIN Provider: Zaki Burkett :1945 A ge:78 Y S ex:Male Date:04/09/2024 Address:[address] [place], [place] [id number] Pcp:ASAF MCGINNIS Subjective: * Chief Complaints: * [facility] . [facility] * Medical History: * Medications: T aking oxyCODONE HCl ER 10 MG Tablet ER 12 Hour Abuse-Deterrent 1 tab(s) orally every 12 hours , Taking Cyclobenzaprine HCl 10 MG Tablet 1 tab(s) orally 3 times a day , Taking Metoprolol Succinate ER 50 MG Tablet Extended Release 24 Hour 1 tab(s) orally once a day , Taking Atorvastatin Calcium 40 MG Tablet 1 tab(s) orally once a day , Taking Omeprazole 20 MG Capsule Delayed Release 1 cap(s) orally once a day , Taking Brilinta , Notes to Pharmacist: *Please review and pick correct strength- formulation [facility]. If intended option is not shown, discontinue and re-order from Quick Search*, Taking Aspirin 81 MG Tablet Delayed Release 1 tab(s) orally once a day , Taking Isosorbide Mononitrate ER 30 MG Tablet Extended Release 24 Hour 1 tab(s) orally once a day (in the morning) , Taking Lisinopril 10 MG Tablet 1/2 tab orally once a day , Taking amLODIPine Besylate 2.5 MG Tablet 1 tab(s) orally once a day , Taking Zolpidem Tartrate 10 MG Tablet 1 tab(s) orally once a day (at bedtime) , Taking Nitroglycerin 0.4 MG/HR Patch 24 Hour 1 PATCH transdermally once a day , Taking Janumet 50-1000 MG Tablet 1 tab(s) orally 2 times a day Objective: * Vitals: Assessment: * Assessment: 1. V itamin D deficiency, unspecified - E55.9 Plan: * Treatment: * Images: * Electronic signature of Giana castaneda Migration on 12/28/2024 at 10:37 AM EDT Sign off status: Pending * Provider: Zaki taylor Migration Date: 1 06/09/2023 Generated for Oscar chavez/Anthony/Deepthi on: 0 12/28/2024 10:37 AM EDT
--- OUTSIDE RECORDS SUMMARY | 2024-12-05 09:30 | XMS_ITS | Encounter Summary ---
Author Organization [facility] Address [address] [place] [address] Care Team Providers Care Leader Writer Name Role Phone Nhi AZUL MD, Morris Wilson Unavailable Haven lisailaKirby Woods MD Unavailable Nicholas Cristobal MD Unavailable Charlie Ayala PA-C Unavailable [phone] Sully Castillo LPN Unavailable Unavailable Florin Vicente MD Unavailable Sindi Mcfarland MA Unavailable Unavailable Mao Powell MD Unavailable Jeff Douglas MD Unavailable [phone] Tiffanie Avery MD Primary Care Provider [phone] Reason for Visit * Reason Comments Cardiac Evaluation Encounter Details Date Type Department Care Team (Late st Contact Info) Description 12/05/2024 9:30 AM EDT Office Visit [facility] [address], [address] [place] [address] Marcos Santana, YANNICK [address] [place], [place] [address] [place] [address] Coronary artery disease involving hughes coronary artery of hughes heart without angina pectoris (Primary Dx); Status post coronary artery stent placement; Essential hypertension; Mixed hyperlipidemia; Type 2 diabetes mellitus without complication, without long-term current use of insulin (HCC) Social History Tobacco Use Types Packs/Day Years Used Date Smoking Tobacco: Former Cigarettes 1 20 1 - 03/15/1986 Smokeless Tobacco: Never Tobacco Cessation:Counseling Given: Not Answered Alcohol Use Standard Drinks/Week Comments No 0 (1 standard drink = 0.6 oz pur e alcohol) [facility] Utilities Answer Date Recorded In the past 12 months has th e [employer], gas, oil, or water company threatened to [...] PHQ-2 Answer Date Recorded PHQ-2 SCORE 0 12/05/2024 Hunger Vital Sign Answer Date Recorded Within [...] place to sleep or slept in a correction (including now)? No 12/29/2023 Housing Stability Vital Sign Answer Milan e Recorded In the last 12 months, was t here a time when you were not able to pay the mortgage or rent on time? No 05/10/2024 In the past 12 months, how m any times have you moved where you were living? 0 05/10/2024 At any time in the past 12 m [facility], were you homeless or living in a correction (including now)? No 05/10/2024 Sex and Gender Information Value Date Recorded Sex Assigned at Not on file Legal Sex Male 9:36 PM EST Gender Identity Not on file Sexual Orientation Not on file documented as of this encounter Last Filed Vital Signs Vital Sign Reading Time Taken Comments Blood Pressure 134/60 12/05/2024 9:31 AM EDT Pulse 61 12/05/2024 9:31 AM EDT Temperature - - Respiratory Rate 18 12/05/2024 9:31 AM EDT Oxygen Saturation 98% 12/05/2024 9:31 AM EDT Inhaled Oxygen Concentration - - Weight 77.1 kg (170 lb) 12/05/2024 9:31 AM EDT Height 175.3 cm (5' 9 ) 12/05/2024 9:31 AM EDT Body Mass Index 25.1 12/05/2024 9:31 AM EDT documented in this encounter Progress Notes * Marcos Santana APRN - 12/05/2024 9:30 AM EDT Subjective Subjective: Patient ID: Weston Parson Sr. is an 79 y.o. male. Chief Complaint: Chief Complaint Patient presents with Cardiac Evaluation Cardiac evaluation for CAD management. CAD history of coronary artery stenting. HTN / HLD / DM medically managed. 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 Skin cancer skin cancer on nose Stented coronary artery Past Surgical History: Procedure Laterality Date ACT N/A 03/25/2017 ACT performed by Joann Ayoub MD at [facility] SHEET METAL OPERATOR ACT N/A 12/02/2023 ACT performed by Joann Ayoub MD at [facility] SHEET METAL OPERATOR BIOPSY DRUG-ELUTING STENT PLACEMENT N/A 03/25/2017 Drug-eluting stent placement performed by Joann Ayoub MD at [facility] SHEET METAL OPERATOR DRUG-ELUTING STENT PLACEMENT N/A 12/02/2023 Drug-eluting stent placement performed by Joann Ayoub MD at [facility] SHEET METAL OPERATOR FRACTIONAL FLOW RESERVE N/A 06/11/2018 Fractional flow reserve performed by Joann Ayoub MD at [facility] SHEET METAL OPERATOR FRACTIONAL FLOW RESERVE N/A 03/25/2017 Fractional flow reserve performed by Joann Ayoub MD at [facility] SHEET METAL OPERATOR FRACTIONAL FLOW RESERVE N/A 12/02/2023 Fractional flow reserve performed by Joann Ayoub MD at [facility] SHEET METAL OPERATOR HX ACROMINOPLASTY Right 05/27/2011 SHOULDER, ACROMIOPLASTY/ROTATOR CUFF REPAIR (OPEN) performed by Jeff Douglas MD at [facility] MAIN OR HX CAPSULE ENDOSCOPY N/A 03/28/2015 CAPSULE ENDOSCOPY (PILL CAM) performed by Nicholas Cristobal MD at [facility] ENDO HX CARDIAC CATHETERIZATION HX COLONOSCOPY HX COLONOSCOPY N/A 09/11/2014 COLONOSCOPY /C POLYPECTOMY VIA SNARE(HOT) performed by Nicholas Cristobal MD at [facility] ENDO HX COLONOSCOPY N/A 09/11/2014 COLONOSCOPY /C SCLEROTHERAPY performed by Nicholas Cristobal MD at [facility] ENDO HX COLONOSCOPY N/A 09/11/2014 COLONOSCOPY /C LESION TATOOING performed by Nicholas Cristobal MD at [facility] ENDO HX COLONOSCOPY N/A 09/11/2014 COLONOSCOPY /C POLYPECTOMY VIA FORCEP performed by Nicholas Cristobal MD at [facility] ENDO HX COLONOSCOPY 12/18/2020 COLONOSCOPY /C POLYPECTOMY VIA FORCEP performed by Nicholas Cristobal MD at [facility] ENDO HX EGJ N/A 02/12/2015 EGD /C BIOPSY performed by Nicholas Cristobal MD at [facility] ENDO HX EGJ N/A 12/18/2020 EGD /C BIOPSY performed by Nicholas Cristobal MD at [facility] ENDO HX EXAM UNDER ANESTHESIA surgery on prostate (turp) HX HERNIA REPAIR Right 07/29/2021 HERNIA, LAPAROSCOPIC, INGUINAL RIGHT /C MESH performed by Serafin Griffin MD at [facility] MAIN OR HX INTERSCALENE NERVE BLOCK Right 05/27/2011 INTERSCALENE NERVE BLOCK performed by Sima Fiore MD at [facility] MAIN OR HX ROTATOR CUFF REPAIR 02/2010 left rotator cuff HX SKIN CANCER REMOVAL 01/2016 from his nose IVUS N/A 12/02/2023 IVUS performed by Joann Ayoub MD at [facility] SHEET METAL OPERATOR LEFT HEART CATH N/A 06/11/2018 Left heart cath performed by Joann Ayoub MD at [facility] SHEET METAL OPERATOR LEFT HEART CATH N/A 03/25/2017 Left heart cath performed by Joann Ayoub MD at [facility] SHEET METAL OPERATOR LEFT HEART CATH N/A 12/02/2023 Left heart cath performed by Joann Ayoub MD at [facility] SHEET METAL OPERATOR Family History Problem Relation Name Age of Onset Diabetes Mother Cancer Mother Stroke Father Heart Disease Sister Diabetes Sister Diabetes Brother Social History Socioeconomic History Marital status: Spouse name: Not on file Number of children: Not on file Years of education: Not on file Highest education level: Not on file Occupational History Not on file Tobacco Use Smoking status: Former Current packs/day: 0.00 Average packs/day: 1 pack/day for 20.0 years (20.0 ttl pk-yrs) Types: Cigarettes Start date: 03/15/1966 Quit date: 03/15/1986 Years since quittin.7 Smokeless tobacco: Never Vaping Use Vaping status: Never Used Substance and Sexual Activity Alcohol use: No Drug use: No Sexual activity: Not Currently Other Topics Concern Not on file Social History Narrative Not on file Social Drivers of Health Financial Resource Strain: Not on file Food Insecurity: No Food Insecurity (05/10/2024) Hunger Vital Sign Worried About Running Out of Food in the Last Year: Never true Ran Out of Food in the Last Year: Never true Transportation Needs: No Transportation Needs (05/10/2024) PRAPARE - Transportation Lack of Transportation (Medical): No Lack of Transportation (Non-Medical): No Physical Activity: Not on file Stress: Not on file Social Connections: Not on file Intimate Partner Violence: Not At Risk (05/10/2024) Humiliation, Afraid, Rape, and Kick questionnaire Fear of Current or Ex-Partner: No Emotionally Abused: No Physically Abused: No Sexually Abused: No Housing Stability: Low Risk (05/10/2024) Housing Stability Vital Sign Unable to Pay for Housing in the Last Year: No Number of Times Moved in the Last Year: 0 Homeless in the Last Year: No Current Outpatient Medications Medication Sig Dispense Refill metoprolol succinate ER (TOPROL XL) 50 mg 24 hr tablet Take 1 Tablet by mouth Once Daily. 90 Tablet0 isosorbide mononitrate (IMDUR) 30 mg CR tablet Take 1 Tablet by mouth Once Daily. 90 Tablet 0 febuxostat (ULORIC) 40 mg tablet Take 1 Tablet by mouth Once Daily. 90 Tablet 3 metFORMIN (GLUCOPHAGE) 1,000 mg tablet Take 1 Tablet by mouth Twice a day. 180 Tablet 3 lisinopriL (PRINIVIL) 10 mg tablet Take 0.5 Tabs by mouth Once Daily. 90 Tablet 3 atorvastatin (LIPITOR) 40 mg tablet Take 1 Tablet by mouth At bedtime. 90 Tablet 3 omeprazole (PRILOSEC) [address] capsule Take 1 Capsule by mouth Once Daily. 90 Capsule 3 amLODIPine (NORVASC) 2.5 mg tablet Take 1 Tablet by mouth Once Daily. 90 Tablet 3 dapagliflozin propanediol (FARXIGA) 10 mg tablet Take 1 Tablet by mouth Every morning. 90 Tablet 3 ticagrelor (BRILINTA) 90 mg tablet Take 1 Tablet by mouth Twice a day. 180 Tablet 3 ergocalciferol (VITAMIN D2) 50,000 unit CAPSULE Take 1 Capsule by mouth Every week. 12 Capsule 3 cyclobenzaprine (FLEXERIL) 5 mg tablet Take 2 Tabs by mouth Three times a day as needed for Muscle spasms. 90 Tablet 2 zolpidem (AMBIEN) 10 mg tablet Take 1 Tablet by mouth At bedtime as needed for Sleep. 30 Tablet 1 Ferrous Sulfate 325 mg (65 mg iron) tablet Take 1 Tablet by mouth Once Daily. 90 Tablet 3 oxyCODONE 10 mg Tab Take 10 mg by mouth Four times a day. blood-glucose meter Kit 1 Kit Twice a day. Dispense what is on formulary 1 Kit 0 Lancets Misc 1 Device Twice a day. Dispense what is formulary 200 Each 3 nitroglycerin (NITROSTAT) 0.4 mg SL tablet Take 1 Tab sublingually Every 5 minutes as needed for Chest pain. 15 Tab 3 aspirin (ASPIRIN) [address] tablet Take 1 Tab by mouth Daily. 30 Tab 3 lancets & blood glucose strips Cmpk 1 Package Twice a day. 60 Package 12 No current facility-administered medications for this visit. No Known Allergies Review of Systems Constitutional: Negative for activity change and appetite change. HENT: Negative for congestion. Respiratory: Negative for chest tightness and shortness of breath. Cardiovascular: Negative for chest pain, palpitations and leg swelling. Gastrointestinal: Negative for abdominal pain, constipation, diarrhea, nausea and vomiting. Musculoskeletal: Negative for arthralgias and myalgias. Skin: Negative. Neurological: Negative for dizziness, syncope, weakness, light-headedness and numbness. Psychiatric/Behavioral: Negative. Objective Objective: BP 134/60 Pulse 61 Resp 18 Ht 5' 9 (175.3 cm) Wt 77.1 kg (170 lb) SpO2 98% BMI 25.10 kg/m?? Physical Exam Vitals and nursing note reviewed. Constitutional: Appearance: He is well-developed. HENT: Head: Normocephalic and atraumatic. Neck: Vascular: No JVD. Cardiovascular: Rate and Rhythm: Normal rate and regular rhythm. Heart sounds: Normal heart sounds. No murmur heard. No friction rub. No gallop. Pulmonary: Effort: Pulmonary effort is normal. No respiratory distress. Breath sounds: Normal breath sounds. Abdominal: General: There is no distension. Palpations: Abdomen is soft. Musculoskeletal: Cervical back: Neck supple. Skin: General: Skin is warm and dry. Neurological: Mental Status: He is alert and oriented to person, place, and time. Assessment/Plan: 1. Coronary artery disease involving hughes coronary artery of hughes heart without angina pectoris 2. Status post coronary artery stent placement 3. Essential hypertension 4. Mixed hyperlipidemia 5. Type 2 diabetes mellitus without complication, without long-term current use of insulin (HCC) CAD - stable Continue 81 mg ASA daily Brilinta 90 mg BID HTN - BP stable Continue Lipitor 40 mg nightly HLD / DM - check cholesterol CK and LFT's prior to FU appt 6 month RTC documented in this encounter Plan of Treatment Upcoming Encounters Date Type Department Care Team (Late st Contact Info) Description 06/12/2025 9:30 AM EST Office Visit [facility] [place] [address] [place] [address] Medical [address]ish [address], [address] [place] [address] Max MarcosYANNICK [address] [place] [address],[address] [place] [address] Scheduled Orders Name Type Priority Associated Diagnoses Orde r Schedule CK Lab Routine Coronary artery disease involving hughes coronary artery of hughes heart without angina pectoris Status post coronary artery stent placement Mixed hyperlipidemia Expected: 06/07/2025 (Approximate), Expires: 12/05/2025 Lipid Panel Lab Routine Coronary artery disease involving hughes coronary artery of hughes heart without angina pectoris Status post coronary artery stent placement Mixed hyperlipidemia Expected: 06/07/2025 (Approximate), Expires: 12/05/2025 Hepatic Function Panel Lab Routine Coronary artery disease involving hughes coronary artery of hughes heart without angina pectoris Status post coronary artery stent placement Mixed hyperlipidemia Expected: 06/07/2025 (Approximate), Expires: 12/05/2025 documented as of this encounter Visit Diagnoses Diagnosis Coronary artery disease involving hughes coronary artery of hughes heart without angina pectoris- Primary Status post coronary artery stent placement Postsurgical percutaneous transluminal coronary angioplasty status Essential hypertension Unspecified essential hypertension Mixed hyperlipidemia Type 2 diabetes mellitus without complication, without long-term current use of insulin (HCC) documented in this encounter Additional Health Concerns Assessment Noted Time PHQ-9 Depression Total Score: 0 04/01/20 19 2:31 PM EST documented as of this encounter Care Teams Leader Writer Relationship Specialty Start Date End Date Tiffanie Avery MD [address] [place] [address] PCP - General Family Medicine 12/22/23 Stew Hankins III, MD Gastroenterology 10/25/10 Kirby Kaur MD [address] [place] [address] [address] [place] [address] Family Medicine 12/23/11 Nicholas Cristobal MD [address] [place] [address] [address] [place] [address] Gastroenterology 08/08/14 Charlie Ayala PA-C [address] [place] [address] [place] [address] Physician Ammonia Distiller 02/05/15 Sully Castillo LPN 02/22/15 Florin Vicente MD [address] [facility] [place] [address] Pulmonary Disease 01/19/18 Sindi Mcfarland MA 09/22/18 Mao Powell MD [address] [place] [address] [place] [address] Orthopedic Surgery 05/22/21 Jeff Douglas MD [address] [place] [address] [address] Orthopedic Surgery 07/18/21 documented as of this encounter
--- OUTSIDE RECORDS SUMMARY | 2024-12-28 10:37 | XMS_ITS | Patient Health Record ---
[facility] Address [address] [place] [address] Care Team Providers Care Inside Plant Supervisor Name Role Phone ASAF MCGINNIS Primary Care Provider GERALDO Alicea Unavailable Unavailable Migration, Provider Unavailable Unavailable Reason For Referral No Information Medications Medication SIG (Take, Route, Frequency, Duration) Notes Start Date End Date Status Vitamin D3 1.25 MG (61694 UT) 1 cap(s) orally once a week; Duration: 30 day(s) 06/20/2019 Active Metoprolol Succinate ER 50 MG 1 tab(s) orally once a day; Duration: 90 days Active Atorvastatin Calcium 40 MG 1 tab(s) orally once a day; Duration: 90 days Active oxyCODONE HCl ER 10 MG 1 tab(s) orally every 12 hours; Duration: 30 day(s) Active Nitroglycerin 0.4 MG/HR 1 PATCH transdermally once a day Active Cyclobenzaprine HCl 10 MG 1 tab(s) orally 3 times a day Active Janumet 50-1000 MG 1 tab(s) orally 2 times a day Active Aspirin 81 MG 1 tab(s) orally once a day Active Omeprazole 20 MG 1 cap(s) orally once a day; Duration: 90 days Active Brilinta *Please review and pick correct strength-formulat ion from Agent Partner options. If intended option is not shown, discontinue and re-order from Quick Search* Active amLODIPine Besylate 2.5 MG 1 tab(s) orally once a day Active Zolpidem Tartrate 10 MG 1 tab(s) orally once a day (at bedtime) Active Isosorbide Mononitrate ER 30 MG 1 tab(s) orally once a day (in the morning) Active Lisinopril 10 MG 1/2 tab orally once a day Active Social History Tobacco Use: Social History Observation Description Date Details (start date - stop date) Former Smoker NA - NA Smoking: Question Answer Notes Are you a: former smoker How long has it been since you last smoked? > 10 years Problems Problem Type SNOMED Code ICD Code Onset Dates Problem Status W/U Status Risk Notes Problem Insomnia (769213006) Insomnia, unspecified (G47.00) Active confirmed Problem Gastro-esophageal reflux disease without esophagitis (470370464) Gastro-esophage al reflux disease without esophagitis (K21.9) Active confirmed Problem Hyperlipidemia (29133931) Hyperlipidemia, unspecified (E78.5) Active confirmed Problem Presence of coronary angioplasty implant and graft (Z95.5) Active confirmed Encounters Encounter Location Date Provider Diagnosis [facility] [address] [place] [address] 04/09/2024 Provider Migration Vitamin D deficiency, unspecified E55.9 Assessments Encounter Date Diagnosis (ICD Code) Assessment Notes Treatment Notes Treatment Clinical Notes Section Notes 04/09/2024 Vitamin D deficiency, unspecified (ICD-10 - E55.9) Plan Of Treatment Pending Test Test Name Order Date TSH (Thyroid Stimulating Hormone) 2019 Chem- comprehensive (CMP) 06/07/2019 Microalb/Creat Ratio, Randm Ur 0 Hemoglobin A1c 06/07/2019 LIPID PANEL 06/07/2019 Vitamin D, 1,25 + 25-Hydroxy 06/07/2019 CBC 06/07/2019 Insurance Providers Payer Name Payer Address Payer Phone Subscriber Number Group Number Insured Name Patient Relationship to Insured Coverage Start Date Coverage End Date BCBS MEDICARE ADVANTAGE/ PLUS [address] [place] [address] [id number] HUNTER WHITT Self - patient is the insured 0 Medical (General) History Medical History History ICD Code HEART STENTS HYPERTENSION DIABETIC HYPERLIPIDEMIA INSOMINA Surgical History Surgery Date(Month/Year) ROTATOR CUFF BOTH SHOULDERS 01/2011
--- OUTSIDE RECORDS SUMMARY | 2024-12-28 10:37 | XMS_ITS | Encounter Summary ---
Author Organization [facility] Address [address] [place] [address] Care Team Providers Care Velvet Weaver Name Role Phone Nhi AZUL MD, Morris Wilson Unavailable Haven lisailaKirby Woods MD Unavailable Nicholas Cristobal MD Unavailable Charlie Ayala PA-C Unavailable Sully Castillo LPN Unavailable Unavailable Florin Vicente MD Unavailable Tiffanie Avery MD Primary Care Provider [phone] Sindi Mcfarland MA Unavailable Unavailable Mao Powell MD Unavailable [phone] Jeff Douglas MD Unavailable [phone] Tiffanie Avery MD Primary Care Provider [phone] Encounter Details Date Type Department Care Team (Late st Contact Info) Description 07/14/2019 Refill [facility] [address], [address] [place] [address] Taya Rivera, YANNICK [address] [place] [address] [address] [place] [address] Social History Tobacco Use Types [...] 07/14/2019 11:45 AM EST Pt is in [place] and ran out of his medication. Pt wants the brilinta sent to [facility] in [place], [place] if needed Please advise. documented in this encounter Plan of Treatment Upcoming Encounters Date Type Department Care Team (Late st Contact Info) Description 06/12/2025 9:30 AM EST Office Visit [facility] [address], [address] [place] [id number] Marcos Santana APRN [address] [place] [address],[address] [place], [place] [id number] documented as of this encounter Visit Diagnoses Diagnosis Status post coronary artery stent placement Postsurgical percutaneous transluminal coronary angioplasty status documented in this encounter Additional Health Concerns Assessment Noted Time PHQ-9 Depression Total Score: 0 04/01/20 19 2:31 PM EST documented as of this encounter Care Teams Velvet Weaver Relationship Specialty Start Date End Date Tiffanie Avery MD [address] [place] [address] PCP - General Family Medicine 01/20/18 10/28/23 Tiffanie Avery MD [address] [place] [address] PCP - General Family Medicine 12/22/23 Stew Hankins III, MD Gastroenterology 10/25/10 Kirby Kaur MD [address] [place] [address] [address] [place] [address] Family Medicine 12/23/11 Nicholas Cristobal MD [address] [place] [address] [place] [address] Gastroenterology 08/08/14 Charlie Ayala, ALKA [address] [place] [address] [place] [address] Physician Nitrocellulose Maker 02/05/15 Sully Castillo LPN 02/22/15 [place] [address] [place] [address] [place] [address] Pulmonary Disease 01/19/18 Sindi Mcfarland MA 09/22/18 Mao Powell MD [address] [place] [address] [place] [address] Orthopedic Surgery 05/22/21 Jeff Douglas MD [address] [place] [address] Orthopedic Surgery 07/18/21 documented as of this encounter
--- OUTSIDE RECORDS SUMMARY | 2024-12-28 10:37 | XMS_ITS | Encounter Summary ---
Author Organization [facility] Address [address] [place] [address] Care Team Providers Care Coremaker Experimental Name Role Phone Nhi AZUL MD, Morris Wilson Unavailable Haven vailable Kirby Kaur MD Unavailable [phone] Nicholas Cristobal MD Unavailable Charlie Ayala PA-C Unavailable [phone] Sully Castillo LPN Unavailable Unavailable Julio Samayoa APRN Primary Care Provider [phone] Julio Samayoa APRN Primary Care Provider Florin Vicente MD Unavailable Tiffanie Avery MD Primary Care Provider [phone] Sindi Mcfarland MA Unavailable Unavailable Mao Powell MD Unavailable [phone] Jeff Douglas MD Unavailable [phone] Tiffanie Avery MD Primary Care Provider [phone] Encounter Details Date Type Department Care Team (Late st Contact Info) Description 07/31/2016 Orders Only [facility] [address] [place] [address] Julio Samyaoa APRN [address] [place] [address] Hypertension goal BP (blood pressure) [...] Upcoming Encounters Date Type Department Care Team ([facility] Contact Info) Description 06/12/2025 9:30 AM EST Office Visit [facility] [address], [address] [place] [address] Marcos Santana APRN [address] [place] [address],[address] [place] [address] documented as of this encounter Visit Diagnoses Diagnosis Hypertension goal BP (blood pressure) < 130/80 Unspecified essential hypertension documented in this encounter Care Teams Coremaker Experimental Relationship Specialty Start Date End Date Julio Samayoa APRN [address] [place] [address] PCP - General nurse practitioner adult care 04/26/15 01/19/17 Julio Samayoa APRN [address] [place] [address] PCP - General Family Practice 01/20/17 01/19/18 Tiffanie Avery MD [address] [place] [address] PCP - General Family Medicine 01/20/18 10/28/23 Tiffanie Avery MD [address] [place] [address] PCP - General Family Medicine 12/22/23 Stew Hankins III, MD Gastroenterology 10/25/10 Kirby Kaur MD [address] [place] [address] [place] [address] Family Medicine 12/23/11 Nicholas Cristobal MD [address] [place] [address] [address] [place] [address] Gastroenterology 08/08/14 Charlie Ayala, TORIC [address] [place] [address] [address] [place] [address] Physician Cork Molder 02/05/15 Sully Castillo LPN 02/22/15 [place] [address] [place] [address] [place] [address] Pulmonary Disease 01/19/18 Sindi Mcfarland MA 09/22/18 Mao Powell MD [address] [place] [address] [place] [address] Orthopedic Surgery 05/22/21 Jeff Douglas MD [address] [place] [address] [address] Orthopedic Surgery 07/18/21 documented as of this encounter
--- OUTSIDE RECORDS SUMMARY | 2024-12-28 10:37 | XMS_ITS | Encounter Summary ---
Author Organization [facility] Address [address] [place] [address] Care Team Providers Care Senior Geotechnical Engineer Name Role Phone Nhi AZUL MD, Morris Wilson Unavailable Haven lisailaKirby Woods MD Unavailable [phone] Nicholas Cristobal MD Unavailable Charlie Ayala PA-C Unavailable Sully Castillo LPN Unavailable Unavailable Florin Vicente MD Unavailable Tiffanie Avery MD Primary Care Provider [phone] Sindi Mcfarland MA Unavailable Unavailable Mao Powell MD Unavailable [phone] Jeff Douglas MD Unavailable [phone] Tiffanie Avery MD Primary Care Provider [phone] Encounter Details Date Type Department Care Team (Late st Contact Info) Description 09/26/2020 Telephone [facility] [address] [place] [address] Charlie Ayala PA-C [address] [place] [address] Social History Tobacco Use Types Packs/Day [...] 9:30 AM EST Office Visit [facility] [address], [address] [place] [address] Marcos Santana, YANNICK [address] [place], [place] [address] [place] [address] documented as of this encounter Visit Diagnoses Not on filedocumented in this encounter Additional Health Concerns Assessment Noted Time PHQ-9 Depression Total Score: 0 04/01/20 19 2:31 PM EST documented as of this encounter Care Teams Senior Geotechnical Engineer Relationship Specialty Start Date End Date Tiffanie Avery MD [address] [place] [address] PCP - General Family Medicine 01/20/18 10/28/23 Tiffanie Avery MD [address] [facility] [place] [address] PCP - General Family Medicine 12/22/23 Stew Hankins III, MD Gastroenterology 10/25/10 Kirby Kaur MD [address] [place] [address] Family Medicine 12/23/11 Nicholas Cristobal MD [address] [place] [address] Gastroenterology 08/08/14 Charlie Ayala, TORIC [address] [place] [address] Physician Picture Enlarger 02/05/15 Sully Castillo LPN 02/22/15 [place] [address] [place] [address] [place] [address] Pulmonary Disease 01/19/18 Sindi Mcfarland MA 09/22/18 Mao Powell MD [address] [place] [address] Orthopedic Surgery 05/22/21 Jeff Douglas MD [address] [place] [address] Orthopedic Surgery 07/18/21 documented as of this encounter
--- OUTSIDE RECORDS SUMMARY | 2024-12-28 10:37 | XMS_ITS | Encounter Summary ---
Author Organization [facility] Address [address] [place] [address] Care Team Providers Care Master Cook Name Role Phone Nhi AZUL MD, Morris Wilson Unavailable Haven lisailable Kirby Kaur MD Unavailable [phone] Nicholas Cristobal MD Unavailable Charlie Ayala PA-C Unavailable [phone] Sully Castillo LPN Unavailable Unavailable Julio Samayoa APRN Primary Care Provider [phone] Julio Samayoa APRN Primary Care Provider [phone] Florin Vicente MD Unavailable Tiffanie Avery MD Primary Care Provider [phone] Sindi Mcfarland MA Unavailable Unavailable Mao Powell MD Unavailable [phone] Jeff Douglas MD Unavailable [phone] Tiffanie Avery MD Primary Care Provider [phone] Reason for Visit * Reason Onset Date Comments Other 07/19/2015 Blood Sugar Diag nostic (ONETOUCH ULTRA TEST) Strp Encounter Details Date Type Department Care Team (Late st Contact Info) Description 07/19/2015 Telephone [facility] [address] [place] [address] Julio Samayoa APRN [address] [place] [address] Other (Blood Sugar Diagnostic (ONETOUCH [...] AM EST Prescription for strips sent to [facility]. * Telephone Encounter - Yoko Payne - 07/19/2015 9:17 AM EST Blood Sugar Diagnostic (ONETOUCH ULTRA TEST) Strp (none) TWICE A DAY [facility] mail order pharmacy asked patient to call and have strips sent to [facility]. It will take too long for the patient to receive them. Patient has been out for 3 weeks. documented in this encounter Plan of Treatment Upcoming Encounters Date Type Department Care Team (Late st Contact Info) Description 06/12/2025 9:30 AM EST Office Visit [facility] [address], [address] [place] [address] Marcos Santana APRN [address] [place] [address],[address] [place] [address] documented as of this encounter Visit Diagnoses Not on filedocumented in this encounter Care Teams Master Cook Relationship Specialty Start Date End Date Julio Samayoa APRN [address] [place] [address] PCP - General nurse practitioner adult care 04/26/15 01/19/17 Julio Samayoa APRN [address] [place] [id number] PCP - General Family Practice 01/20/17 01/19/18 Tiffanie Avery MD [address] [place], [place] [address] PCP - General Family Medicine 01/20/18 10/28/23 Tiffanie Avery MD [address] [place] [address] PCP - General Family Medicine 12/22/23 Stew Hankins III, MD Gastroenterology 10/25/10 Kirby Kaur MD [address] [place] [address] Family Medicine 12/23/11 Nicholas Cristobal MD [address] [place] [address] Gastroenterology 08/08/14 Charlie Ayala, PA-C [address] [place] [address] Physician Residential Real Estate Sales Manager 02/05/15 Sully Castillo LPN 02/22/15 Florin Vicente MD [address] [place] [address] [place] [address] Pulmonary Disease 01/19/18 Sindi Mcfarland MA 09/22/18 Mao Powell MD [address] [place] [address] Orthopedic Surgery 05/22/21 Jeff Douglas MD [address] [place] [address] Orthopedic Surgery 07/18/21 documented as of this encounter
--- OUTSIDE RECORDS SUMMARY | 2024-12-28 10:37 | XMS_ITS | Encounter Summary ---
Author Organization [facility] Address [address] [place] [address] Care Team Providers Care Therapy Site Coordinator Name Role Phone Abhi Ruiz MD Primary Care Provider Unavailabl Rikki Stone DO Primary Care Provider [phone] Nhi AZUL MD, Morris Wilson Unavailable Haven Louie Pace MD Primary Care Provider Kirby Kaur MD Unavailable [phone] Maricruz Burris APRN Primary Care Provide r Nicholas Cristobal MD Unavailable Doctor, No Primary Care Provider UnavailCharlie Greenberg PA-C Unavailable Sully Castillo LPN Unavailable Unavailable Julio Samayoa APRN Primary Care Provider [phone] Julio Samayoa APRN Primary Care Provider [phone] Florin Vicente MD Unavailable Tiffanie Avery MD Primary Care Provider [phone] Sindi Mcfarland MA Unavailable Unavailable Mao Powell MD Unavailable [phone] Jeff Douglas MD Unavailable [phone] Tiffanie Avery MD Primary Care Provider [phone] Encounter Details Date Type Department Care Team [...] Upcoming Encounters Date Type Department Care Team ([facility] st Contact Info) Description 06/12/2025 9:30 AM EST Office Visit [facility] [address], [address] [place] [address] Marcos Santana APRN [address] [place] [address],[address] [place] [address] documented as of this encounter Visit Diagnoses Not on filedocumented in this encounter Care Teams Therapy Site Coordinator Relationship Specialty Start Date End Date Abhi Ruiz MD PCP - General 12/29/07 10/04/09 Rikki Painter DO [address] [place] [address] PCP - General Family Medicine 10/05/09 06/12/11 Louie Purdy MD [address] [place] [address] PCP - General Family Medicine 06/13/11 07/05/14 Maricruz Burris APRN [address] [place] [address] PCP - General Nurse Practitioner 07/06/14 11/29/14 Otilia Abreu [place] PCP - General Family Medicine 11/30/14 04/25/15 Julio Samayoa APRN [address] [place] [address] PCP - General nurse practitioner adult care 04/26/15 01/19/17 Julio Samayoa APRN [address] [place] [facility] [place] [place] [address] PCP - General Family Practice 01/20/17 01/19/18 Tiffanie Avery MD [address] [place] [address] [place] [address] PCP - General Family Medicine 01/20/18 10/28/23 Tiffanie Avery MD [address] [place] [address] PCP - General Family Medicine 12/22/23 Stew Hankins III, MD Gastroenterology 10/25/10 Kirby Kaur MD [address] [place] [address] Family Medicine 12/23/11 Nicholas Cristobal MD [address] [place] [address] [address] [place] [address] Gastroenterology 08/08/14 Charlie Ayala, PA-C [address] [place] [address] [address] [place] [address] Physician Agent Licensing Clerk 02/05/15 Sully Castillo LPN 02/22/15 [place] [address] [place] [address] [address] Pulmonary Disease 01/19/18 Sindi Mcfarland MA 09/22/18 Mao Powell MD [address] [place] [address] [address] Orthopedic Surgery 05/22/21 Jeff Douglas MD [address] [address] [place] [address] Orthopedic Surgery 07/18/21 documented as of this encounter
--- OUTSIDE RECORDS SUMMARY | 2024-12-28 10:37 | XMS_ITS | Encounter Summary ---
Author Organization [facility] Address [address] [place] [address] Care Team Providers Care Bucket Chucker Name Role Phone Nhi AZUL MD, Morris Wilson Unavailable Haven vailable Kirby Kaur MD Unavailable [phone] Nicholas Cristobal MD Unavailable Charlie Ayala PA-C Unavailable [phone] Sully Castillo LPN Unavailable Unavailable Julio Samayoa APRN Primary Care Provider [phone] Florin Vicente MD Unavailable Tiffanie Avery MD Primary Care Provider [phone] Sindi Mcfarland MA Unavailable Unavailable Mao Powell MD Unavailable [phone] Jeff Douglas MD Unavailable [phone] Tiffanie Avery MD Primary Care Provider [phone] Encounter Details Date Type Department Care Team (Late st Contact Info) Description 12/10/2017 Telephone [facility] [address] [facility], [address] [place] [address] Lino Kimbrough, WARPMAN Social History Tobacco Use Types Packs/Day Years [...] Miscellaneous Notes * Telephone Encounter - Lino Kimbrough RRT - 12/10/2017 2:44 PM EDT Pt instructed on use of MDI inhaler and spacer. Pt verbalized and demonstrated understanding documented in this encounter Plan of Treatment Upcoming Encounters Date Type Department Care Team (Late st Contact Info) Description 06/12/2025 9:30 AM EST Office Visit [facility] [address], [address] [place] [address] Marcos Santana APRN [address] [place] [address],[address] [place] [address] documented as of this encounter Visit Diagnoses Not on filedocumented in this encounter Care Teams Bucket Chucker Relationship Specialty Start Date End Date Julio Samayoa APRN [address] [place] [address] PCP - General Family Practice 01/20/17 01/19/18 Tiffanie Avery MD [address] [place] [address] PCP - General Family Medicine 01/20/18 10/28/23 Tiffanie Avery MD [address] [place] [address] PCP - General Family Medicine 12/22/23 Stew Hankins III, MD Gastroenterology 10/25/10 Kirby Kaur MD [address] [place] [address] [address] [place] [address] Family Medicine 12/23/11 Nicholas Cristobal MD [address] [place] [address] [address] [place] [address] Gastroenterology 08/08/14 Charlie Ayala PA-C [address] [place] [address] [place] [address] Physician Enterprise Systems Manager 02/05/15 Sully Castillo LPN 02/22/15 Florin Vicente MD [address] [facility] [address] [place] [id number] Pulmonary Disease 01/19/18 Sindi Mcfarland MA 09/22/18 Mao Powell MD [address] [place] [address] [place] [address] Orthopedic Surgery 05/22/21 Jeff Douglas MD [address] [place] [address] [address] Orthopedic Surgery 07/18/21 documented as of this encounter
--- OUTSIDE RECORDS SUMMARY | 2024-12-28 10:37 | XMS_ITS | Encounter Summary ---
Author Organization [facility] Address [address] [place] [address] Care Team Providers Care Landing Gear Mechanic Name Role Phone Nhi AZUL MD, Morris Wilson Unavailable Haven vailable Kirby Kaur MD Unavailable [phone] Nicholas Cristobal MD Unavailable Charlie Ayala PA-C Unavailable [phone] Sully Castillo LPN Unavailable Unavailable Julio Samayoa APRN Primary Care Provider [phone] Florin Vicente MD Unavailable Tiffanie Avery MD Primary Care Provider [phone] Sindi Mcfarland MA Unavailable Unavailable Mao Powell MD Unavailable [phone] Jeff Douglas MD Unavailable [phone] Tiffanie Avery MD Primary Care Provider [phone] Encounter Details Date Type Department Care Team (Late st Contact Info) Description 03/16/2017 Telephone [facility] [address], [address] [place] [address] Taya Dumont LPN Social History [...] 9:30 AM EST Office Visit [facility] [address], [address] [place] [address] Marcos Satnana APRN [address] [place] [address],[address] [place] [address] documented as of this encounter Visit Diagnoses Not on filedocumented in this encounter Care Teams Landing Gear Mechanic Relationship Specialty Start Date End Date Julio Samayoa APRN [address] [place] [address] PCP - General Family Practice 01/20/17 01/19/18 Tiffanie Avery MD [address] [place] [address] PCP - General Family Medicine 01/20/18 10/28/23 Tiffanie Avery MD [address] [place] [address] PCP - General Family Medicine 12/22/23 Stew Hankins III, MD Gastroenterology 10/25/10 Kirby Kaur MD [address] [place] [address] [address] [place], [place] [address] Family Medicine 12/23/11 Nicholas Cristobal MD [address] [place] [place] [address] [place] [address] Gastroenterology 08/08/14 Charlie Ayala PA-C [address] [place] [address] Physician Power System Operator 02/05/15 Sully Castillo LPN 02/22/15 Florin Vicente MD [address] [facility] [place] [address] Pulmonary Disease 01/19/18 Sindi Mcfarland MA 09/22/18 Mao Powell MD [address] [place] [address] [place] [address] Orthopedic Surgery 05/22/21 Jeff Douglas MD [address] [place] [address] [address] Orthopedic Surgery 07/18/21 documented as of this encounter
--- OUTSIDE RECORDS SUMMARY | 2024-12-28 10:37 | XMS_ITS | Encounter Summary ---
Author Organization [facility] Address [address] [place] [address] Care Team Providers Care Manufacturing Engineering Technician Name Role Phone Nhi AZUL MD, Morris Wilson Unavailable Haven lisailable Kirby Kaur MD Unavailable [phone] Nicholas Cristobal MD Unavailable Charlie Ayala PA-C Unavailable Sully Castillo LPN Unavailable Unavailable Julio Samayoa APRN Primary Care Provider [phone] Florin Vicente MD Unavailable Tiffanie Avery MD Primary Care Provider [phone] Sindi Mcfarland MA Unavailable Unavailable Mao Powell MD Unavailable [phone] Jeff Douglas MD Unavailable [phone] Tiffanie Avery MD Primary Care Provider [phone] Reason for Visit * Reason Onset Date Comments Complete Paperwork 03/18/2017 Encounter Details Date Type Department Care Team (Late st Contact Info) Description 03/18/2017 Telephone [facility] [address], [address] [place] [address] Clem Westbrook MD [address] [place] [address] [address] [place] [address] Complete Paperwork Social History Tobacco [...] - 03/18/2017 12:51 PM EDT Transferred to [facility] in procedure office * Telephone [...] 9:30 AM EST Office Visit [facility] [address], [address] [place] [address] Marcos Santana APRN [address] [place], [place] [address] [place] [address] documented as of this encounter Visit Diagnoses Not on filedocumented in this encounter Care Teams Manufacturing Engineering Technician Relationship Specialty Start Date End Date Julio Samayoa APRN [address] [place] [address] PCP - General Family Practice 01/20/17 01/19/18 Tiffanie Avery MD [address] [place] [address] PCP - General Family Medicine 01/20/18 10/28/23 Tiffanie Avery MD [address] [place] [address] PCP - General Family Medicine 12/22/23 Stew Hankins III, MD Gastroenterology 10/25/10 Kirby Kaur MD [address] [place] [address] Family Medicine 12/23/11 Nicholas Cristobal MD [address] [place] [address] Gastroenterology 08/08/14 Charlie Ayala, PAMindiC [address] [place] [address] Physician Social Service Technician 02/05/15 Sully Castillo LPN 02/22/15 Florin Vicente MD [address] [place] [address] [place] [address] Pulmonary Disease 01/19/18 Sindi Mcfarland MA 09/22/18 Mao Powell MD [address] [place] [address] Orthopedic Surgery 05/22/21 Jeff Douglas MD [address] [place] [address], [place] [address] Orthopedic Surgery 07/18/21 documented as of this encounter
--- OUTSIDE RECORDS SUMMARY | 2024-12-28 10:37 | XMS_ITS | Clinical Summary ---
Author Organization [facility] Address [address] [place] [address] Care Team Providers Care Emc Storage Architect Name Role Phone Nhi AZUL MD, Morris Wilson Unavailable Haven Kirby Bustamante MD Unavailable [phone] Nicholas Martinez MD Unavailable Charlie Ayala PA-C Unavailable Sully Castillo LPN Unavailable Unavailable Florin Vicente MD Unavailable Sindi Mcfarland MA Unavailable Unavailable Mao Powell MD Unavailable Jeff Douglas MD Unavailable Tiffanie Avery MD Primary Care Provider [phone] Allergies No known active allergies Medications lancets & blood glucose strips CmpkIndications:As thma ([facility]/HCC),Lumbar radiculopathy,Weed Eradicator jennifer pain 1 Package Twice a day. 60 Package 12 013 Active aspirin (ASPIRIN) [address] tabletIndications: Chest pain on exertion Take 1 Tab by mouth Daily. 30 Tab 3 017 Active blood-glucose meter KitIndications:DM (diabetes mellitus) ([facility]) 1 Kit Twice a day. Dispense what is on formulary 1 Kit 020 Active Lancets MiscIndications:DM (diabetes mellitus) ([facility]) 1 Device Twice a day. Dispense what is formulary 200 Each 3 020 Active oxyCODONE 10 mg TabIndications:Lum bar radiculopathy Take 10 mg by mouth Four times a day. 022 Active Ferrous Sulfate 325 mg (65 mg iron) tabletIndications: Iron deficiency Take 1 Tablet by mouth Once Daily. 90 Tablet 3 023 Active zolpidem (AMBIEN) 10 mg tabletIndications: Insomnia, unspecified type Take 1 Tablet by mouth At bedtime as needed for Sleep. 30 Tablet 1 024 Active ergocalciferol (VITAMIN D2) 50,000 unit CAPSULEIndications :Vitamin D deficiency Take 1 Capsule by mouth Every week. 12 Capsule 3 024 Active cyclobenzaprine (FLEXERIL) 5 mg tabletIndications: Type 2 diabetes mellitus without complication, without long-term current use of insulin (HCC),Lumbar radiculopathy,Othe r chronic pain Take 2 Tabs by mouth Three times a day as needed for Muscle spasms. 90 Tablet 2 024 Active ticagrelor (BRILINTA) 90 mg tabletIndications: Status post coronary artery stent placement Take 1 Tablet by mouth Twice a day. 180 Tablet 3 024 Active febuxostat (ULORIC) 40 mg tabletIndications: Gout, unspecified cause, unspecified chronicity, unspecified site Take 1 Tablet by mouth Once Daily. 90 Tablet 3 024 Active metFORMIN (GLUCOPHAGE) 1,000 mg tabletIndications: Coronary artery disease involving [place] coronary artery of [place] heart without angina pectoris,Type 2 diabetes mellitus without complication, unspecified whether superintendent marine oil terminal insulin use (HCC) Take 1 Tablet by mouth Twice a day. 180 Tablet 3 024 Active lisinopriL (PRINIVIL) 10 mg tabletIndications: Coronary artery disease involving [place] coronary artery of [place] heart without angina pectoris Take 0.5 Tabs by mouth Once Daily. 90 Tablet 3 024 Active atorvastatin (LIPITOR) 40 mg tabletIndications: Coronary artery disease involving [place] coronary artery of [place] heart without angina pectoris Take 1 Tablet by mouth At bedtime. 90 Tablet 3 024 Active omeprazole (PRILOSEC) [address] capsuleIndications :Gastroesophageal reflux disease with esophagitis without hemorrhage Take 1 Capsule by mouth Once Daily. 90 Capsule 3 024 Active amLODIPine (NORVASC) 2.5 mg tabletIndications: Hypertension, unspecified type,Shortness of breath Take 1 Tablet by mouth Once Daily. 90 Tablet 3 024 Active dapagliflozin propanediol (FARXIGA) 10 mg tabletIndications: Coronary artery disease involving [place] coronary artery of [place] heart without angina pectoris,Type 2 diabetes mellitus without complication, unspecified whether superintendent marine oil terminal insulin use (HCC) Take 1 Tablet by mouth Every morning. 90 Tablet 3 024 Active isosorbide mononitrate (IMDUR) 30 mg CR tabletIndications: Stable angina pectoris,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, without long-term current use of insulin (HCC),Essential hypertension Take 1 Tablet by mouth Once Daily. 90 Tablet 025 Active metoprolol succinate ER (TOPROL XL) 50 mg 24 hr tabletIndications: Coronary artery disease involving [place] coronary artery of [place] heart without angina pectoris,Palpitati ons,Shortness of breath Take 1 Tablet by mouth Once Daily. 90 Tablet 025 Active nitroglycerin (NITROSTAT) 0.4 mg SL tablet Take 1 Tablet sublingually Every 5 minutes as needed for Chest pain. 15 Tablet 3 025 Active cyanocobalamin (VITAMIN B-12) 1,000 mcg tabletIndications: Vitamin B12 deficiency Take 1 Tab by mouth Daily. 30 Tab 5 014 2024 Discontinued albuterol (VENTOLIN HFA) 90 mcg/Actuation inhalerIndications :Shortness of breath Take 2 Puffs by inhalation Every 4 hours as needed (WHEEZING). 1 Each 3 018 2024 Discontinued nitroglycerin (NITROSTAT) 0.4 mg SL tabletIndications: Chest pain, unspecified type Take 1 Tab sublingually Every 5 minutes as needed for Chest pain. 15 Tab 3 019 2024 Discontinued(R eorder) tiZANidine (ZANAFLEX) 4 mg tablet Take 4 mg by mouth As directed as needed. 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 Hx of adenomatous colonic polyps 11/13/2020 Overview (11/13/2020): Added automatically from request for surgery [id number] Gastroesophageal reflux dise ase with esophagitis without hemorrhage 11/13/2020 Overview (11/13/2020): Added automatically from request for surgery [id number] Other emphysema 01/19/2018 Coronary artery disease involving [place] coronar y artery 03/26/2017 S/P coronary artery [...] Encounters Date Type Department Care Team Description 12/05/2024 9:30 AM EDT Office Visit [facility] [address], [address] [place] [address] Marcos Santana APRN Coronary artery disease involving [place] coronary artery of [place] heart without angina pectoris (Primary Dx); Status post coronary artery stent placement; Essential hypertension; Mixed hyperlipidemia; Type 2 diabetes mellitus without complication, without long-term current use of insulin ([facility]) 12/05/2024 Travel 11/10/2024 Refill [facility] [address] [place] [address] [address] [place], [place] [address] Tiffanie Avery MD Coronary artery disease involving [place] coronary artery of [place] heart without angina pectoris; Palpitations; Shortness of breath from Last 3 Months Immunizations Immunization Administration Dates Next Due 20-VALENT Pneumococcal CONJUGATE 09/16/2022 AFLURIA .5mL QS FLU VACCINE 5yr+ SDS 04/04/2011 [id number] & [id number] FLUZONE, AFL URIA 0.25mL 6-35mos QS, .50mL 3YR+ QV MDV 04/01/2019 [id number] Fluzone 0.7ml QS Flu Vaccine 65yr+ Sds [...] e alcohol) [facility] Utilities Answer Date Recorded In the past 12 months has e MaPS, Convr[employer], oil, or water [employer] threatened to shut off services in your [...] time in the past 12 m [facility], were you homeless or living in [...] Pulse 61 12/05/2024 9:31 AM EDT Temperature 36.4 C (97.5 F) 05/10/2024 12:09 PM EST Respiratory Rate 18 12/05/2024 9:31 AM EDT Oxygen Saturation 98% 12/05/2024 9:31 AM EDT Inhaled Oxygen Concentration - - Weight 77.1 kg (170 lb) 12/05/2024 9:31 AM EDT Height 175.3 cm (5' 9 ) 12/05/2024 9:31 AM EDT Body Mass Index 25.1 12/05/2024 9:31 AM EDT Plan of Treatment Upcoming Encounters Date Type Department Care Team (Late st Contact Info) Description 06/12/2025 9:30 AM EST Office Visit [facility] [address], [address] [place] [address] Marcos Santana, VENEER GRADER [address] [place] [address],[address] [place] [address] Health Maintenance Due Date Last [...] SIGMOIDOSCOPY Discontinued Medical Devices Implanted Type Area Cutting And Creasing Press Operator Device Identifier Shelf Expiration Date Model / Serial / Lot Suture Ultrafix Stitchpak [place] Rc Implanted:Qty: 1 on 05/27/2011 at [facility] Right: Shoulder [facility] [id number] / / [id number] Suture Ultrafix Stitchpak [place] Rc Implanted:Qty: 1 on 05/27/2011 at [facility] Right: Shoulder [facility] [id number] / / [id number] Suture Ultrafix Stitchpak [place] Rc Implanted:Qty: 1 on 05/27/2011 at [facility] Right: Shoulder [facility] [id number] / / [id number] Stent Implanted:Qty: 1 on 03/25/2017 by Joann Ayoub MD at [facility] [id number] / / [id number] Mesh 3d Max Rt Lg 4x6 Lap Hernia 1/Cs Implanted:Qty: 1 on 07/29/2021 by Serafin Griffin MD at [facility] Right: Abdomen DAVOL 02/19/2026 [id number] / / [id number] Securestrap Absorb Fixtn Devic Bx6 Implanted:Qty: 1 on 07/29/2021 by Serafin Griffin MD at [facility] Right: Abdomen ETHICON 02/21/2023 [id number] / / [id number] 2.50 X 22mm [place] Rx C Implanted:Qty: 1 on 12/02/2023 by Joann Ayoub MD at [facility] [employer] 08/14/2026 [id number] / / [id number] Procedures Procedure Name Priority Date/Time Associated Diagnosis Comments HEMOGLOBIN A1C Routine 05/10/2024 12:33 PM EST Type 2 diabetes mellitus without complication, unspecified whether superintendent marine oil terminal insulin use MICROALBUMIN,RANDOM URINE (INCLUDES CREATININE W/RATIO) Routine 02/12/2023 2:14 PM EDT Type 2 diabetes mellitus without complication, unspecified whether superintendent marine oil terminal insulin use PROVATION COLONOSCOPY Routine 12/18/2020 1:11 PM EDT OCCULT BLOOD (FIT), STOOL Routine 03/20/2015 3:47 PM EDT Guaiac + stool from Last 3 Months or Most Recently Relevant to Health Maintenance Results * (ABNORMAL) Hemoglobin A1C (05/10/2024 12:33 PM EST) HEMOGLOBIN A1C 7.4(H) 3.0 - 6.0 % 05/10/2024 4:57 PM EST [facility] 05/10/2024 12:3 3 PM EST 05/10/2024 4:48 PM EST Narrative [facility] - 05/10/2024 4:57 PM EST NO KNOWN ALLERGIES us Julio Samayoa VENEER GRADER CHEMISTRY ORDERABLES Final Res ult Performing Organization Address City/State/[facility] Co de Phone Number [facility] [address] [place] [address] [facility] [address] [place] [address] * (ABNORMAL) Microalbumin, Random Urine (02/12/2023 2:14 PM EDT) CREATININE URINE 87.0 mg/dL 02/13/20 10:14 PM EDT [facility] MICROALBUMIN,U,RANDO M 2.90(H) 0.00 - 1.80 mg/dL 02/12/2023 10:14 PM EDT [facility] MICROALB CREAT RATIO 33.3 ug/mg 01/24 10:14 PM EDT [facility] Comment: CATEGORY SPOT COLLECTION Normal <30 ug/mg creatinine Microalbuminuria 30-300 ug/mg creatinine Clinical albuminuria >300 ug/mg creatinine 02/12/2023 2:14 PM EDT 02/12/2023 9:50 PM EDT Narrative [facility] - 02/12/2023 10:14 PM EDT NO KNOWN ALLERGIES Tiffanie Avery MD CHEMISTRY ORDERABLES Final Resul t [facility] [address] [place] [address] [facility] [address] [place] [address] * PROVATION COLONOSCOPY (12/18/2020 1:11 PM EDT) [...] oxygen saturations were monitored continuously. The Olympus [id number] ([id number]) colonoscope was introduced through the anus and advanced to the cecum, identified by appendiceal orifice and ileocecal valve. The colonoscopy was performed without difficulty. The patient tolerated the procedure well. The quality of the bowel preparation was evaluated using the BBPS ([place] Bowel Preparation Scale) with scores of: Right [...] years for surveillance. - Return to physician assistant superintendent for curriculum in 6 weeks. - Await pathology results. [...] PROVATION GI Final Result PROVATION [id number] [employer] [place] [address] * Occult Blood, Stool (03/20/2015 3:47 PM EDT) OCCULT BLOOD NEGATIVE NEGATIVE 03/20/2015 7:55 PM EDT [facility] Comment:Methology: qualitati ve immunochemical. Stool (Stool) 03/20/2015 3:4 7 PM EDT 03/20/2015 6:43 PM EDT Narrative [facility] - 03/20/2015 7:[address] PM EDT Fax to Dr. Charlie Ayala us Charlie Ayala PA-Lobito URINE ORDERABLES Final Resu lt Performing Organization Address City/State/[facility] Co de Phone Number [facility] [address] [place] [address] from Last 3 Months or Most Recently Relevant to Health Maintenance Insurance ANTHEM BLUE MEDICARE ACCESS ANTHEM BLUE MEDICARE ACCESS ANTHEM BLUE MEDICARE ACCESS Advance [...] 7:03 PM 03/26/2017 4:01 PM Care Teams Emc Storage Architect Relationship Specialty Start Date End Date Tiffanie Avery MD [address] [place] [address] PCP - General Family Medicine 12/22/23 Stew Hankins III, MD Gastroenterology 10/25/10 Kirby Kaur MD [address] [place] [address] Family Medicine 12/23/11 Nicholas Martinez MD [address] [employer] [place] [address] Gastroenterology 08/08/14 Charlie Ayala PA-C [address] [place] [address] [address] [place] [address] Physician Printing Machinist 02/05/15 Sully Castillo LPN 02/22/15 Florin Vicente MD [address] [facility] [place] [address] Pulmonary Disease 01/19/18 Sindi Mcfarland MA 09/22/18 Mao Powell MD [address] [place] [address] [place] [address] Orthopedic Surgery 05/22/21 Jeff Douglas MD [address] [place] [address] [place] [address] Orthopedic Surgery 07/18/21
--- OUTSIDE RECORDS SUMMARY | 2024-12-28 10:37 | XMS_ITS | Encounter Summary ---
Author Organization [facility] Address [address] [place] [address] Care Team Providers Care Manufacturing Supervisor Name Role Phone Nhi AZUL MD, Morris Wilson Unavailable Haven lisailable Kirby Kaur MD Unavailable [phone] Nicholas Cristobal MD Unavailable Charlie Ayala PA-C Unavailable Sully Castillo LPN Unavailable Unavailable Florin Vicente MD Unavailable Tiffanie Avery MD Primary Care Provider [phone] Sindi Mcfarland MA Unavailable Unavailable Mao Powell MD Unavailable [phone] Jeff Douglas MD Unavailable [phone] Tiffanie Avery MD Primary Care Provider [phone] Encounter Details Date Type Department Care Team (Late st Contact Info) Description 12/23/2021 Telephone [facility] [address] [place] [address] [place] [address] Tiffanie Avery MD [address] [place] [address] Social History Tobacco Use Types Packs/Day Years [...] be prescribe 10mg ambien instead of 5mg. [phone]. documented in this encounter Plan of Treatment Upcoming Encounters Date Type Department Care Team (Late st Contact Info) Description 06/12/2025 9:30 AM EST Office Visit [facility] [address] [place] [address] Marcos Santana APRN [address] [place] [address],[address] [place] [id number] documented as of this encounter Visit Diagnoses Diagnosis Insomnia, unspecified type documented in this encounter Additional Health Concerns Assessment Noted Time PHQ-9 Depression Total Score: 0 04/01/20 19 2:31 PM EST documented as of this encounter Care Teams Manufacturing Supervisor Relationship Specialty Start Date End Date Tiffanie Avery MD [address] [place] [address] PCP - General Family Medicine 01/20/18 10/28/23 Tiffanie Avery MD [address] [place] [address] PCP - General Family Medicine 12/22/23 Stew Hankins III, MD Gastroenterology 10/25/10 Kirby Kaur MD [address] [place] [address] [address] [place] [address] Family Medicine 12/23/11 Nicholas Cristobal MD [address] [place] [address] [address] [place] [address] Gastroenterology 08/08/14 Charlie Ayala, ALKA [address] [place] [address] [address] [place] [address] Physician Tongsman 02/05/15 Sully Castillo LPN 02/22/15 Florin Vicente MD [address] [place] [address] Pulmonary Disease 01/19/18 Sindi Mcfarland MA 09/22/18 Mao Powell MD [address] [place] [address] [place] [address] Orthopedic Surgery 05/22/21 Jeff Douglas MD [address] [place] [address] [address] Orthopedic Surgery 07/18/21 documented as of this encounter
--- OUTSIDE RECORDS SUMMARY | 2024-12-28 10:37 | XMS_ITS | Encounter Summary ---
Author Organization [facility] Address [address] [place] [address] Care Team Providers Care Wheelage Clerk Name Role Phone Nhi AZUL MD, Morris Wilson Unavailable Haven lisailable Kirby Kaur MD Unavailable [phone] Nicholas Cristobal MD Unavailable Charlie Ayala PA-C Unavailable [phone] Sully Castillo LPN Unavailable Unavailable Florin Vicente MD Unavailable Tiffanie Avery MD Primary Care Provider [phone] Sindi Mcfarland MA Unavailable Unavailable Mao Powell MD Unavailable [phone] Jeff Douglas MD Unavailable [phone] Tiffanie Avery MD Primary Care Provider [phone] Reason for Visit * Reason Onset Date Comments Results - Lab 01/25/2020 Encounter Details Date Type Department Care Team (Late st Contact Info) Description 01/25/2020 Telephone [facility] [place] [address] [place] [address] Yaneli Sibley, CHAD Results - Lab Social History Tobacco Use [...] - 01/25/2020 2:48 PM EDT Weston Parson ., phoned in requesting test result(s). Lab result(s) [...] Description 06/12/2025 9:30 AM EST Office Visit [facility] [address] [place] [address] Marcos Santana APRN [address] [place] [address],[address] [place] [address] documented as of this encounter Visit Diagnoses Not on filedocumented in this encounter Additional Health Concerns Assessment Noted Time PHQ-9 Depression Total Score: 0 04/01/20 19 2:31 PM EST documented as of this encounter Care Teams Wheelage Clerk Relationship Specialty Start Date End Date Tiffanie Avery MD [address] [place] [address] PCP - General Family Medicine 01/20/18 10/28/23 Tiffanie Avery MD [address] [facility] [place] [address] PCP - General Family Medicine 12/22/23 Stew Hankins III, MD Gastroenterology 10/25/10 Kirby Kaur MD [address] [place] [address] [place] [address] Family Medicine 12/23/11 Nicholas Cristobal MD [address] [place] [address] [address] [place] [address] Gastroenterology 08/08/14 Charlie Ayala, TORIC [address] [place] [address] [address] [place] [address] Physician Mental Hygiene Consultant 02/05/15 Sully Castillo LPN 02/22/15 Florin Vicente MD [address] [facility] [address] [address] Pulmonary Disease 01/19/18 Sindi Mcfarland MA 09/22/18 Mao Powell MD [address] [place] [address] [address] Orthopedic Surgery 05/22/21 Jeff Douglas MD [address] [place] [address] [address] Orthopedic Surgery 07/18/21 documented as of this encounter
--- OUTSIDE RECORDS SUMMARY | 2024-12-28 10:37 | XMS_ITS | Encounter Summary ---
Author Organization [facility] Address [address] [place] [address] Care Team Providers Care Underwater Hunter Name Role Phone Nhi AZUL MD, Morris Wilson Unavailable Haven lisailaKirby Woods MD Unavailable [phone] Nicholas Cristobal MD Unavailable Charlie Ayala PA-C Unavailable [phone] Sully Castillo LPN Unavailable Unavailable Florin Vicente MD Unavailable Tiffanie Avery MD Primary Care Provider [phone] Sindi Mcfarland MA Unavailable Unavailable Mao Powell MD Unavailable [phone] Jeff Douglas MD Unavailable [phone] Tiffanie Avery MD Primary Care Provider [phone] Encounter Details Date Type Department Care Team (Late st Contact Info) Description 09/25/2020 Telephone [facility] [address] [place] [address] Nicholas Cristobal MD [address] [place] [address] Social History Tobacco Use Types Packs/Day [...] Description 06/12/2025 9:30 AM EST Office Visit [facility] [address], [address] [place] [address] Marcos Santana APRN [address] [place], [place] [address] [place], [place] [phone] documented as of this encounter Visit Diagnoses Not on filedocumented in this encounter Additional Health Concerns Assessment Noted Time PHQ-9 Depression Total Score: 0 04/01/20 19 2:31 PM EST documented as of this encounter Care Teams Underwater Hunter Relationship Specialty Start Date End Date Tiffanie Avery MD [address] [place] [address] PCP - General Family Medicine 01/20/18 10/28/23 Tiffanie Avery MD [address] [facility] [place] [address] PCP - General Family Medicine 12/22/23 Stew Hankins III, MD Gastroenterology 10/25/10 Kirby Kaur MD [address] [place] [address] Family Medicine 12/23/11 Nicholas Cristobal MD [address] [place] [address] Gastroenterology 08/08/14 Charlie Ayala, TORIC [address] [place] [address] Physician Cigar Tobacco Processing Supervisor 02/05/15 Sully Castillo, PRINCESS 02/22/15 Florin Vicente MD [address] [facility] [place] [address] Pulmonary Disease 01/19/18 Sindi Mcfarland MA 09/22/18 Mao Powell MD [address] [place] [address] Orthopedic Surgery 05/22/21 Jeff Douglas MD [address] [place] [address] Orthopedic Surgery 07/18/21 documented as of this encounter
--- OUTSIDE RECORDS SUMMARY | 2024-12-28 10:37 | XMS_ITS | Encounter Summary ---
Author Organization [facility] Address [address] [place] [address] Care Team Providers Care Boring Mill Operator Name Role Phone Nhi AZUL MD, Morris Wilson Unavailable Haven lisailable Kirby Kaur MD Unavailable [phone] Nicholas Cristobal MD Unavailable Charlie Ayala PA-C Unavailable Sully Castilol LPN Unavailable Unavailable Julio Samayoa APRN Primary Care Provider [phone] Florin Vicente MD Unavailable Tiffanie Avery MD Primary Care Provider [phone] Sindi Mcfarland MA Unavailable Unavailable Mao Powell MD Unavailable [phone] Jeff Douglas MD Unavailable [phone] Tiffanie Avery MD Primary Care Provider [phone] Reason for Visit * Reason Onset Date Comments Results - Test 03/13/2017 ct Encounter Details Date Type Department Care Team (Late st Contact Info) Description 03/13/2017 Telephone [facility] [address], [address] [place] [address] Clem Westbrook MD [address] [place] [address] [address] [place] [address] Results - Test (ct ) [...] * Telephone Encounter - Rubi Weinstein - 03/13/2017 9:[address] results are not back. Pt would like results. documented in this encounter Plan of Treatment Upcoming Encounters Date Type Department Care Team ([facility] Contact Info) Description 06/12/2025 9:30 AM EST Office Visit [facility] [address] [place] [address] Marcos Santana APRN [address] [place] [address] [place], [place] [id number] documented as of this encounter Visit Diagnoses Not on filedocumented in this encounter Care Teams Boring Mill Operator Relationship Specialty Start Date End Date Julio Samayoa APRN [address] [place] [address] PCP - General Family Practice 01/20/17 01/19/18 Tiffanie Avery MD [address] [place] [address] PCP - General Family Medicine 01/20/18 10/28/23 Tiffanie Avery MD [address] [place] [address] PCP - General Family Medicine 12/22/23 Stew Hankins III, MD Gastroenterology 10/25/10 Kirby Kaur MD [address] [place] [address] [address] Family Medicine 12/23/11 Nicholas Cristobal MD [address] [place] [address] [place] [address] Gastroenterology 08/08/14 Charlie Ayala PA-C [address] [place] [id number] Physician Customer Service Sales Associate 02/05/15 Sully Castillo LPN 02/22/15 [place] [address] [place] [address] [address] Pulmonary Disease 01/19/18 Sindi Mcfarland MA 09/22/18 Mao Powell MD [address] [place] [address] [address] Orthopedic Surgery 05/22/21 Jeff Douglas MD [address] [place] [address] [address] Orthopedic Surgery 07/18/21 documented as of this encounter
--- OUTSIDE RECORDS SUMMARY | 2024-12-28 10:37 | XMS_ITS | Encounter Summary ---
Author Organization [facility] Address [address] [place] [address] Care Team Providers Care Cat Driver Name Role Phone Nhi AZUL MD, Morris Wilson Unavailable Haven lisailaKirby Woods MD Unavailable Nicholas Cristobal MD Unavailable Charlie Ayala PA-C Unavailable [phone] Sully Castillo LPN Unavailable Unavailable Florin Vicente MD Unavailable Sindi Mcfarland MA Unavailable Unavailable Mao Powell MD Unavailable [phone] Jeff Douglas MD Unavailable [phone] Tiffanie Avery MD Primary Care Provider [phone] Encounter Details Date Type Department Care Team (Latest Contact Info) Description 12/05/2024 Travel Social History Tobacco Use Types Packs/Day Years Used Date Smoking Tobacco: Former Cigarettes 1 20 1 - 03/15/1986 Smokeless Tobacco: Never Alcohol Use Standard Drinks/Week Comments No 0 (1 standard drink = 0.6 oz pur e alcohol) [facility] Utilities Answer Date Recorded In the past 12 months has e electric, gas, oil, or water company [...] place to sleep or slept in a care home (including now)? No 12/29/2023 Housing Stability [...] any time in the past 12 m [facility] [place] [facility], were you homeless or living in a care home (including now)? No 05/10/2024 Sex and Gender Information Value Date Recorded Sex Assigned at Not on file Legal Sex Male 9:36 PM EST Gender Identity Not on file Sexual Orientation Not on file documented as of this encounter Plan of Treatment Upcoming Encounters Date Type Department Care Team (Late st Contact Info) Description 06/12/2025 9:30 AM EST Office Visit [facility] [address], [address] [place] [address] Marcos Santana APRN [address] [place] [address],[address] [place], [place] [id number] documented as of this encounter Visit Diagnoses Not on filedocumented in this encounter Additional Health Concerns Assessment Noted Time PHQ-9 Depression Total Score: 0 04/01/20 19 2:31 PM EST documented as of this encounter Care Teams Cat Driver Relationship Specialty Start Date End Date Tiffanie Avery MD [address] [place] [address] PCP - General Family Medicine 12/22/23 Stew Hankins III, MD Gastroenterology 10/25/10 Kirby Kaur MD [address] [place] [address] [address] [place] [address] Family Medicine 12/23/11 Nicholas Cristobal MD [address] [place] [address] [address] [place] [address] Gastroenterology 08/08/14 Charlie Ayala PA-C [address] [place] [address] [address] [place] [address] Physician Personal Lines Sales Rep 02/05/15 Sully Castillo LPN 02/22/15 [place] [address] [place] [address] [address] [place] [address] Pulmonary Disease 01/19/18 Sindi Mcfarland MA 09/22/18 Mao Powell MD [address] [place] [address] Orthopedic Surgery 05/22/21 Jeff Douglas MD [address] [place] [address] Orthopedic Surgery 07/18/21 documented as of this encounter
--- OUTSIDE RECORDS SUMMARY | 2024-12-28 10:37 | XMS_ITS | Encounter Summary ---
Author Organization [facility] Address [address] [place] [address] Care Team Providers Care Systems Management Consultant Name Role Phone Nhi AZUL MD, Morris Wilson Unavailable Haven karenble Louie Purdy MD Primary Care Provider [phone] Kirby Kaur MD Unavailable [phone] Maricruz Burris APRN Primary Care Provide r Nicholas Cristobal MD Unavailable Doctor, No Primary Care Provider UnavailCharlie Greenberg PA-C Unavailable [phone] Sully Castillo LPN Unavailable Unavailable Julio Samayoa APRN Primary Care Provider [phone] Julio Samayoa APRN Primary Care Provider [phone] Florin Vicente MD Unavailable Tiffanie Avery MD Primary Care Provider [phone] Sindi Mcfarland MA Unavailable Unavailable Mao Powell MD Unavailable [phone] Jeff Douglas MD Unavailable [phone] Tiffanie Avery MD Primary Care Provider [phone] Reason for Visit * Reason Onset Date Comments Medications Refill 11/21/2011 Encounter Details Date Type Department Care Team (Late st Contact Info) Description 11/21/2011 Refill [facility] [address] [place] [id number] Louie Purdy MD [address] [place] [address] Insomnia (Primary Dx) Social History Tobacco Use [...] 9:30 AM EST Office Visit [facility] [address] [place] [address] Marcos Santana APRN [address] [place] [address],[address] [place] [address] documented as of this encounter Visit Diagnoses Diagnosis Insomnia- Primary Insomnia, unspecified documented in this encounter Care Teams Systems Management Consultant Relationship Specialty Start Date End Date Louie Purdy MD [address] [place] [address] PCP - General Family Medicine 06/13/11 07/05/14 Maricruz Burris APRN [address] [place] [address] PCP - General Nurse Practitioner 07/06/14 11/29/14 Otilia Abreu [place] PCP - General Family Medicine 11/30/14 04/25/15 Julio Samayoa APRN [address] [place] [address] PCP - General nurse practitioner adult care 04/26/15 01/19/17 Julio Samayoa APRN [address] [place] [address] PCP - General Family Practice 01/20/17 01/19/18 Tiffanie Avery MD [address] [place] [address] PCP - General Family Medicine 01/20/18 10/28/23 Tiffanie Avery MD [address] [place] [address] PCP - General Family Medicine 12/22/23 Stew Hankins III, MD Gastroenterology 10/25/10 Kirby Kaur MD [address] [place] [address] [address] [place] [address] Family Medicine 12/23/11 Nicholas Cristobal MD [address] [place] [address] [address] [place] [address] Gastroenterology 08/08/14 Charlie Ayala, PAMindiC [address] [place] [address] [address] [place] [address] Physician Dimmer Board Operator 02/05/15 Sully Castillo LPN 02/22/15 [place] [address] [place] [address] [address] Pulmonary Disease 01/19/18 Sindi Mcfarland MA 09/22/18 Mao Powell MD [address] [place] [address] [address] Orthopedic Surgery 05/22/21 Jeff Douglas MD 613 [address] [address] [place] [address] Orthopedic Surgery 07/18/21 documented as of this encounter
--- OUTSIDE RECORDS SUMMARY | 2024-12-28 10:37 | XMS_ITS | Encounter Summary ---
Author Organization [facility] Address [address] [place] [address] Care Team Providers Care Management And Budget Analyst Name Role Phone Nhi AZUL MD, Morris Wilson Unavailable Haven Kirby Bustamante MD Unavailable [phone] Nicholas Cristobal MD Unavailable Charlie Ayala PA-C Unavailable [phone] Sully Castillo LPN Unavailable Unavailable Florin Vicente MD Unavailable Tiffanie Avery MD Primary Care Provider [phone] Sindi Mcfarland MA Unavailable Unavailable Mao Powell MD Unavailable [phone] Jeff Douglas MD Unavailable [phone] Tiffanie Avery MD Primary Care Provider [phone] Encounter Details Date Type Department Care Team (Late st Contact Info) Description 05/22/2021 Telephone [facility] [address] [place] [address], [address] [address] Mao Powell MD [address] [place] [address] [place] [address] Social History Tobacco Use Types Packs/Day Years [...] PM EST notified * Telephone Encounter - Moa Powell MD - 05/22/2021 1:54 PM EST [...] Description 06/12/2025 9:30 AM EST Office Visit [facility] C[facility] [address], [address] [place] [address] Marcos Santana, ACCOUNT ENGINEER [address] [place] [address],[address] [place] [address] documented as of this encounter Visit Diagnoses Not on filedocumented in this encounter Additional Health Concerns Assessment Noted Time PHQ-9 Depression Total Score: 0 04/01/20 19 2:31 PM EST documented as of this encounter Care Teams Management And Budget Analyst Relationship Specialty Start Date End Date Tiffanie Avery MD [address] [place] [address] PCP - General Family Medicine 01/20/18 10/28/23 Tiffanie Avery MD [address] [facility] [address] PCP - General Family Medicine 12/22/23 Stew Hankins III, MD Gastroenterology 10/25/10 Kirby Kaur MD [address] [place] [address] Family Medicine 12/23/11 Nicholas Cristobal MD [address] [place] [address] Gastroenterology 08/08/14 Charlie Ayala PA-C [address] [place] [address] Physician Senior Power Plant Operator 02/05/15 Sully Castillo LPN 02/22/15 [place] [address] [place] [address] [place] [address] Pulmonary Disease 01/19/18 Sindi Mcfarland MA 09/22/18 Mao Powell MD [address] [place] [address] Orthopedic Surgery 05/22/21 Jeff Douglas MD [address] [place] [address] Orthopedic Surgery 07/18/21 documented as of this encounter
--- OUTSIDE RECORDS SUMMARY | 2024-12-28 10:37 | XMS_ITS | Encounter Summary ---
Author Organization [facility] Address [address] [place] [address] Care Team Providers Care Food Technician Name Role Phone Nhi AZUL MD, Morris Wilson Unavailable Havne lisailaKirby Woods MD Unavailable [phone] Nicholas Cristobal MD Unavailable Charlie Ayala PA-C Unavailable [phone] Sully Castillo LPN Unavailable Unavailable Florin Vicente MD Unavailable Tiffanie Avery MD Primary Care Provider [phone] Sindi Mcfarland MA Unavailable Unavailable Mao Powell MD Unavailable [phone] Jeff Douglas MD Unavailable [phone] Tiffanie Avery MD Primary Care Provider [phone] Reason for Visit * Reason Onset Date Comments Other 08/21/2022 Encounter Details Date Type Department Care Team (Late st Contact Info) Description 08/21/2022 Telephone [facility] [address] [place] [address] [place] [address] Tiffanie Avery MD [address] [place] [address] Other Social History Tobacco Use Types Packs/Day [...] 9:30 AM EST Office Visit [facility] [address] [place] [address] Marcos Santana APRN [address] [place] [address],[address] [place] [address] documented as of this encounter Visit Diagnoses Not on filedocumented in this encounter Additional Health Concerns Assessment Noted Time PHQ-9 Depression Total Score: 0 04/01/20 19 2:31 PM EST documented as of this encounter Care Teams Food Technician Relationship Specialty Start Date End Date Tiffanie Avery MD [address] [place] [address] PCP - General Family Medicine 01/20/18 10/28/23 Tiffanie Avery MD [address] [place] [address] PCP - General Family Medicine 12/22/23 Stew Hankins III, MD Gastroenterology 10/25/10 Kirby Kaur MD [address] [place] [address] Family Medicine 12/23/11 Nicholas Cristobal MD [address] [place] [address] Gastroenterology 08/08/14 Charlie Ayala, TORIC [address] [place] [address] Physician Movie Critic 02/05/15 Sully Castillo LPN 02/22/15 [place] [address] [place] [address] [address] Pulmonary Disease 01/19/18 Sindi Mcfarland MA 09/22/18 Mao Powell MD [address] [place] [address] Orthopedic Surgery 05/22/21 Jeff Douglas MD [address] [place] [address] Orthopedic Surgery 07/18/21 documented as of this encounter
--- OUTSIDE RECORDS SUMMARY | 2024-12-28 10:37 | XMS_ITS | Encounter Summary ---
Author Organization [facility] Address [address] [place] [address] Care Team Providers Care Automated Logistics Specialist Name Role Phone Nhi AZUL MD, Morris Wilson Unavailable Haven vailable Kirby Kaur MD Unavailable [phone] Nicholas Cristobal MD Unavailable Charlie Ayala PA-C Unavailable [phone] Sully Castillo LPN Unavailable Unavailable Julio Samayoa APRN Primary Care Provider [phone] Julio Samayoa APRN Primary Care Provider Florin Vicente MD Unavailable Tiffanie Avery MD Primary Care Provider [phone] Sindi Mcfarland MA Unavailable Unavailable Mao Powell MD Unavailable [phone] Jeff Douglas MD Unavailable [phone] Tiffanie Avery MD Primary Care Provider [phone] Reason for Visit * Reason Onset Date Comments Other 08/25/2016 requesting medic ation for diverticulitis Encounter Details Date Type Department Care Team (Late st Contact Info) Description 08/25/2016 Telephone [facility] [address] [place] [address] Julio Samayoa APRN [address] [place] [address] Other (requesting medication for diverticulitis [...] in for appointment he is currently in [place]. documented in this encounter Plan of Treatment Upcoming Encounters Date Type Department Care Team (Late st Contact Info) Description 06/12/2025 9:30 AM EST Office Visit [facility] [address], [address] [place] [address] Marcos Santana APRN [address] [place] [address],[address] [place] [address] documented as of this encounter Visit Diagnoses Not on filedocumented in this encounter Care Teams Automated Logistics Specialist Relationship Specialty Start Date End Date Julio Samayoa APRN [address] [place] [address] PCP - General nurse practitioner adult care 04/26/15 01/19/17 Julio Samayoa APRN [address] [place], [place] [address] PCP - General Family Practice 01/20/17 01/19/18 Tiffanie Avery MD [address] [place] [address] PCP - General Family Medicine 01/20/18 10/28/23 Tiffanie Avery MD [address] [place] [address] PCP - General Family Medicine 12/22/23 Stew Hankins III, MD Gastroenterology 10/25/10 Kirby Kaur MD [address] [place] [address] Family Medicine 12/23/11 Nicholas Cristobal MD [address] [place] [address] Gastroenterology 08/08/14 Charlie Ayala, PA-C [address] [place] [address] Physician Volunteer Services Coordinator 02/05/15 Sully Castillo LPN 02/22/15 Florin Vicente MD [address] [place] [address] [place] [address] Pulmonary Disease 01/19/18 Sindi Mcfarland MA 09/22/18 Mao Powell MD [address] [place] [address] Orthopedic Surgery 05/22/21 Jeff Douglas MD [address] [place] [address] Orthopedic Surgery 07/18/21 documented as of this encounter
--- OUTSIDE RECORDS SUMMARY | 2024-12-28 10:37 | XMS_ITS | Encounter Summary ---
Author Organization [facility] Address [address] [place] [address] Care Team Providers Care Golf Cart Mechanic Name Role Phone Nhi AZUL MD, Morris Wilson Unavailable Haven lisailable Kirby Kaur MD Unavailable [phone] Nicholas Cristobal MD Unavailable Charlie Ayala PA-C Unavailable [phone] Sully Castillo LPN Unavailable Unavailable Julio Samayoa APRN Primary Care Provider [phone] Julio Samayoa APRN Primary Care Provider Florin Vicente MD Unavailable Tiffanie Avery MD Primary Care Provider [phone] Sindi Mcfarland MA Unavailable Unavailable Mao Powell MD Unavailable [phone] Jeff Douglas MD Unavailable [phone] Tiffanie Avery MD Primary Care Provider [phone] Reason for Visit * Reason Onset Date Comments Results - Lab 08/07/2016 Encounter Details Date Type Department Care Team (Late st Contact Info) Description 08/07/2016 Telephone [facility] [address] [place] [address] Julio Samayoa APRN [address] [place] [address] Results - Lab Social History [...] Upcoming Encounters Date Type Department Care Team ([facility] Contact Info) Description 06/12/2025 9:30 AM EST Office Visit [facility] [address], [address] [place] [address] Marcos Santana APRN [address] [place] [address],[facility] [address] [place] [address] documented as of this encounter Visit Diagnoses Not on filedocumented in this encounter Care Teams Golf Cart Mechanic Relationship Specialty Start Date End Date Julio Samayoa APRN [address] [place], [place] [id number] PCP - General nurse practitioner adult care 04/26/15 01/19/17 Julio Samayoa APRN [address] [place], [place] [address] PCP - General Family Practice 01/20/17 01/19/18 Tiffanie Avery MD [address] [place] [address] PCP - General Family Medicine 01/20/18 10/28/23 Tiffanie Avery MD [address] [place] [address] PCP - General Family Medicine 12/22/23 Stew Hankins III, MD Gastroenterology 10/25/10 Kirby Kaur MD [address] [place] [address] [address] [place] [address] Family Medicine 12/23/11 Nicholas Cristobal MD [address] [place] [address] Gastroenterology 08/08/14 Charlie Ayala, PA-C [address] [place] [address] Physician Weave Defect Charting Clerk 02/05/15 Sully Castillo LPN 02/22/15 Florin Vicente MD [address] [facility] [address] [place] [address] Pulmonary Disease 01/19/18 Sindi Mcfarland MA 09/22/18 Mao Powell MD [address] [place] [address] Orthopedic Surgery 05/22/21 Jeff Douglas MD [address] [place] [address] Orthopedic Surgery 07/18/21 documented as of this encounter
--- OUTSIDE RECORDS SUMMARY | 2024-12-28 10:37 | XMS_ITS | Encounter Summary ---
Author Organization [facility] Address [address] [place] [address] Care Team Providers Care County Treasurer Name Role Phone Nhi AZUL MD, Morris Wilson Unavailable Haven lisailable Kirby Kaur MD Unavailable [phone] Nicholas Cristobal MD Unavailable Charlie Ayala PA-C Unavailable [phone] Sully Castillo LPN Unavailable Unavailable Florin Vicente MD Unavailable Tiffanie Avery MD Primary Care Provider [phone] Sindi Mcfarland MA Unavailable Unavailable Mao Powell MD Unavailable [phone] Jeff Douglas MD Unavailable [phone] Tiffanie Avery MD Primary Care Provider [phone] Reason for Visit * Reason Onset Date Comments Medication - Prior Authorization 05/23/2019 Diabetic Supplies Encounter Details Date Type Department Care Team (Late st Contact Info) Description 05/23/2019 Telephone [facility] [address], [place] [address] Tiffanie Avery MD [address] [place] [address] Medication - Prior Authorization (Diabetic Supplies) Social [...] Description 06/12/2025 9:30 AM EST Office Visit [facility] [address], [address] [place] [address] Marcos Santana APRN [address] [place] [address],[address] [place] [address] documented as of this encounter Visit Diagnoses Not on filedocumented in this encounter Additional Health Concerns Assessment Noted Time PHQ-9 Depression Total Score: 0 04/01/20 19 2:31 PM EST documented as of this encounter Care Teams County Treasurer Relationship Specialty Start Date End Date Tiffanie Avery MD [address] [place] [address] PCP - General Family Medicine 01/20/18 10/28/23 Tiffanie Avery MD [address] [place] [address] PCP - General Family Medicine 12/22/23 Stew Hankins III, MD Gastroenterology 10/25/10 Kirby Kaur MD [address] [place] [address] [place] [address] Family Medicine 12/23/11 Nicholas Cristobal MD [address] [place] [address] Gastroenterology 08/08/14 Charlie Ayala, GIRISH-C [address] [place] [address] Physician Electrolytic Etcher 02/05/15 Sully Castillo LPN 02/22/15 Florin Vicente MD [address] [place] [address] [place] [address] Pulmonary Disease 01/19/18 Sindi Mcfarland MA 09/22/18 Mao Powell MD [address] [place] [address] [address] Orthopedic Surgery 05/22/21 Jeff Douglas MD [address] [place] [address] Orthopedic Surgery 07/18/21 documented as of this encounter
--- OUTSIDE RECORDS SUMMARY | 2024-12-28 10:37 | XMS_ITS | Encounter Summary ---
Author Organization [facility] Address [address] [place] [address] Care Team Providers Care Project Specialist Name Role Phone Abhi Ruiz MD Primary Care Provider Unavailabl Rikki Stone DO Primary Care Provider [phone] Nhi AZUL MD, Morris Wilson Unavailable Haven Louie Pace MD Primary Care Provider Kirby Kaur MD Unavailable [phone] Maricruz Burris APRN Primary Care Provide r Nicholas Cristobal MD Unavailable Doctor, No Primary Care Provider UnavailCharlie Greenberg PA-C Unavailable Sully Castillo LPN Unavailable Unavailable Julio Samayoa APRN Primary Care Provider [phone] Julio Samayoa APRN Primary Care Provider [phone] Florin Vicente MD Unavailable Tiffanie Avery MD Primary Care Provider [phone] Sindi Mcfarland MA Unavailable Unavailable Mao Powell MD Unavailable [phone] Jeff Douglas MD Unavailable [phone] Tiffanie Avery MD Primary Care Provider Encounter [...] Upcoming Encounters Date Type Department Care Team ([facility] st Contact Info) Description 06/12/2025 9:30 AM EST Office Visit [facility] [address], [address] [place] [address] Marcos Santana APRN [address] [place] [address],[address] [place], [place] [id number] documented as of this encounter Visit Diagnoses Not on filedocumented in this encounter Care Teams Project Specialist Relationship Specialty Start Date End Date Abhi Ruiz MD PCP - General 12/29/07 10/04/09 Rikki Painter DO [address] [place] [address] PCP - General Family Medicine 10/05/09 06/12/11 Louie Purdy MD [address] [place] [address] PCP - General Family Medicine 06/13/11 07/05/14 Maricruz Burris, HOROLOGIST [address] [place] [address] PCP - General Nurse Practitioner 07/06/14 11/29/14 Otilia Abreu [place] PCP - General Family Medicine 11/30/14 04/25/15 Julio Samayoa APRN [address] [place] [address] PCP - General nurse practitioner adult care 04/26/15 01/19/17 Julio Samayoa APRN [address] [place] [address] PCP - General Family Practice 01/20/17 01/19/18 Tiffanie Avery MD [address] [place] [address] [place] [address] PCP - General Family Medicine 01/20/18 10/28/23 Tiffanie Avery MD [address] [place] [address] [place] [address] PCP - General Family Medicine 12/22/23 Stew Hankins III, MD Gastroenterology 10/25/10 Kirby Kaur MD [address] [place] [address] [address] Family Medicine 12/23/11 Nicholas Cristobal MD [address] [place] [address] [address] [place] [address] Gastroenterology 08/08/14 Charlie Ayala, PA-C [address] [place] [address] [address] [place] [address] Physician Social Services Technician 02/05/15 Sully Castillo LPN 02/22/15 [place] [address] [place] [address] [address] Pulmonary Disease 01/19/18 Sindi Mcfarland MA 09/22/18 Mao Powell MD [address] [place] [address] [address] Orthopedic Surgery 05/22/21 Jeff Douglas MD 613 [address] [address] [place] [address] Orthopedic Surgery 07/18/21 documented as of this encounter
--- OUTSIDE RECORDS SUMMARY | 2024-12-28 10:37 | XMS_ITS | Encounter Summary ---
Author Organization [facility] Address [address] [place] [address] Care Team Providers Care Sheep Farm Worker Name Role Phone Nhi AZUL MD, Morris Wilson Unavailable Haven lisailable Kirby Kaur MD Unavailable Nicholas Cristobal MD Unavailable Charlie Ayala PA-C Unavailable [phone] Sully Castillo LPN Unavailable Unavailable Florin Vicente MD Unavailable Tiffanie Avery MD Primary Care Provider [phone] Sindi Mcfarland MA Unavailable Unavailable Mao Powell MD Unavailable [phone] Jeff Douglas MD Unavailable [phone] Tiffanie Avery MD Primary Care Provider [phone] Encounter Details Date Type Department Care Team (Late st Contact Info) Description 04/11/2019 Refill [facility] [address], [address] [place] [address] Nevaeh Sibley LPN Social History [...] 9:30 AM EST Office Visit [facility] [place] [address] [place] [address] [address] [place] [id number] Marcos Santana, YANNICK [address] [place] [address] [address] [place], [place] [id number] documented as of this encounter Visit Diagnoses Diagnosis Coronary artery disease involving [place] coronary artery, angina presence unspecified, unspecified whether [place] or transplanted heart Palpitations Unstable angina pectoris (HCC) Intermediate coronary syndrome documented in this encounter Additional Health Concerns Assessment Noted Time PHQ-9 Depression Total Score: 0 04/01/20 19 2:31 PM EST documented as of this encounter Care Teams Sheep Farm Worker Relationship Specialty Start Date End Date Tiffanie Avery MD [address] [place] [address] PCP - General Family Medicine 01/20/18 10/28/23 Tiffanie Avery MD [address] [place] [address] PCP - General Family Medicine 12/22/23 Stew Hankins III, MD Gastroenterology 10/25/10 Kirby Kaur MD [address] [place] [address] [address] [place] [address] Family Medicine 12/23/11 Nicholas Cristobal MD [address] [place] [address] Gastroenterology 08/08/14 Charlie Ayala, TORIC [address] [place] [address] Physician Superintendent Renting Managing 02/05/15 Sully Castillo LPN 02/22/15 Florin Vicente MD [address] [facility] [address] [place] [phone] Pulmonary Disease 01/19/18 Sindi Mcfarland MA 09/22/18 Mao Powell MD [address] [place] [address] [place] [address] Orthopedic Surgery 05/22/21 Jeff Douglas MD [address] [place] [address] [address] Orthopedic Surgery 07/18/21 documented as of this encounter
--- OUTSIDE RECORDS SUMMARY | 2024-12-28 10:37 | XMS_ITS | Encounter Summary ---
Author Organization [facility] Address [address] [place] [address] Care Team Providers Care Summer Intern Name Role Phone Nhi AZUL MD, Morris Wilson Unavailable Haven lisailable Louie Purdy MD Primary Care Provider [phone] Kirby Kaur MD Unavailable [phone] Maricruz Burris APRN Primary Care Provide r Nicholas Cristobal MD Unavailable Doctor, No Primary Care Provider UnavailCharlie Greenberg PA-C Unavailable Sully Castillo LPN Unavailable Unavailable Julio Samayoa APRN Primary Care Provider [phone] Julio Samayoa APRN Primary Care Provider [phone] Florin Vicente MD Unavailable Tiffanie Avery MD Primary Care Provider [phone] Sindi Mcfarland MA Unavailable Unavailable Mao Powell MD Unavailable [phone] Jeff Douglas MD Unavailable [phone] Tiffanie Avery MD Primary Care Provider [phone] Reason for Visit * Reason Onset Date Comments Medications Refill 10/20/2013 Encounter Details Date Type Department Care Team (Late st Contact Info) Description 10/20/2013 Telephone [facility] [address] [place] [id number] Louie Purdy MD [address] [place] [address] Medications Refill Social History Tobacco Use Types [...] test strips for ONE-TOUCH ULTRA II meter. [employer] MAIL ORDER Phone # FAX# documented in this encounter Plan of Treatment Upcoming Encounters Date Type Department Care Team (Late st Contact Info) Description 06/12/2025 9:30 AM EST Office Visit [facility] [address], [address] [place] [address] Marcos Santana APRN [address] [place] [address],[address] [place] [address] documented as of this encounter Visit Diagnoses Not on filedocumented in this encounter Care Teams Summer Intern Relationship Specialty Start Date End Date Louie Purdy MD [address] [place] [address] PCP - General Family Medicine 06/13/11 07/05/14 Maricruz Burris HOBBING MACHINE OPERATOR [address] [place] [address] PCP - General Nurse Practitioner 07/06/14 11/29/14 Otilia Abreu [place], [place] PCP - General Family Medicine 11/30/14 04/25/15 Julio Samayoa APRN [address] [place] [address] PCP - General nurse practitioner adult care 04/26/15 01/19/17 Julio Samayoa APRN [address] [place] [address] PCP - General Family Practice 01/20/17 01/19/18 Tiffanie Avery MD [address] [place] [address] PCP - General Family Medicine 01/20/18 10/28/23 Tiffanie Avery MD [address] [place] [address] PCP - General Family Medicine 12/22/23 Stew Hankins III, MD Gastroenterology 10/25/10 Kirby Kaur MD [address] [place] [address] Family Medicine 12/23/11 Nicholas Cristobal MD [address] [place] [id number] Gastroenterology 08/08/14 Charlie Ayala, TORIC [address] [place] [address] [id number] Physician Dolly Operator 02/05/15 Sully Castillo LPN 02/22/15 Florin Vicente MD [address] [facility] [address] Pulmonary Disease 01/19/18 Sindi Mcfarland MA 09/22/18 Mao Powell MD [address] [place] [address] [place] [address] Orthopedic Surgery 05/22/21 Jeff Douglas MD [address] [place] [address] [address] Orthopedic Surgery 07/18/21 documented as of this encounter
--- OUTSIDE RECORDS SUMMARY | 2024-12-28 10:37 | XMS_ITS | Encounter Summary ---
Author Organization [facility] Address [address] [place] [address] Care Team Providers Care Lactation Specialist Name Role Phone Nhi AZUL MD, Morris Wilson Unavailable Haven lisailable Kirby Kaur MD Unavailable Nicholas Cristobal MD Unavailable Charlie Ayala PA-C Unavailable Sully Castillo LPN Unavailable Unavailable Florin Vicente MD Unavailable Tiffanie Avery MD Primary Care Provider [phone] Sindi Mcfarland MA Unavailable Unavailable Mao Powell MD Unavailable [phone] Jeff Douglas MD Unavailable [phone] Tiffanie Avery MD Primary Care Provider [phone] Reason for Visit * Reason Onset Date Comments Medications Refill 05/07/2020 Encounter Details Date Type Department Care Team (Late st Contact Info) Description 05/07/2020 Refill [facility] [address] [place] [address] [place] [address] Tiffanie Avery MD [address] [place] [address] Social History Tobacco Use Types Packs/Day [...] Upcoming Encounters Date Type Department Care Team ([facility] Contact Info) Description 06/12/2025 9:30 AM EST Office Visit [facility] [address] [place] [address] Marcos Santana, YANNICK [address] [place] [address] [address] [place], [place] [phone] documented as of this encounter Visit Diagnoses Not on filedocumented in this encounter Additional Health Concerns Assessment Noted Time PHQ-9 Depression Total Score: 0 04/01/20 19 2:31 PM EST documented as of this encounter Care Teams Lactation Specialist Relationship Specialty Start Date End Date Tiffanie Avery MD [address] [place] [address] PCP - General Family Medicine 01/20/18 10/28/23 Tiffanie Avery MD [address] [place] [address] PCP - General Family Medicine 12/22/23 Stew Hankins III, MD Gastroenterology 10/25/10 Kirby Kaur MD [address] [place], [place] [address] [place] [address] Family Medicine 12/23/11 Nicholas Cristobal MD [address] [place] [address] Gastroenterology 08/08/14 Charlie Ayala, PAMindiC [address] [place] [phone] Physician Invoice Coder 02/05/15 Sully Castillo LPN 02/22/15 Florin Vicente MD [address] [facility] [address] [place] [address] Pulmonary Disease 01/19/18 Sindi Mcfarland MA 09/22/18 Mao Powell MD [address] [place] [address] [address] Orthopedic Surgery 05/22/21 Jeff Douglas MD [address] [place] [address] [address] Orthopedic Surgery 07/18/21 documented as of this encounter
--- OUTSIDE RECORDS SUMMARY | 2024-12-28 10:37 | XMS_ITS | Encounter Summary ---
Author Organization [facility] Address [address] [place] [address] Care Team Providers Care Tube Mill Operator Name Role Phone Nhi AZUL MD, Morris Wilson Unavailable Haven vailable Kirby Kaur MD Unavailable Nicholas Cristobal MD Unavailable Charlie Ayala PA-C Unavailable [phone] Sully Castillo LPN Unavailable Unavailable Florin Vicente MD Unavailable Tiffanie Avery MD Primary Care Provider [phone] Sindi Mcfarland MA Unavailable Unavailable Mao Powell MD Unavailable Jeff Douglas MD Unavailable [phone] Tiffanie Avery MD Primary Care Provider Reason for Visit * Reason Onset Date Comments Medications Refill 05/16/2019 Encounter Details Date Type Department Care Team (Late st Contact Info) Description 05/16/2019 Refill [facility] [address], [address] [place] [address] Joann Ayoub MD [address] [place] [address] [address] [place] [address] Medications Refill Social History Tobacco [...] 9:30 AM EST Office Visit [facility] [address], [address] [place] [address] Marcos Santana, PARACHUTE MARKER [address] [place], [place] [address] [place] [address] documented as of this encounter Visit Diagnoses Diagnosis Coronary artery disease involving [place] coronary artery of [place] heart without angina pectoris Palpitations Shortness of breath Gastroesophageal reflux disease with esophagitis documented in this encounter Additional Health Concerns Assessment Noted Time PHQ-9 Depression Total Score: 0 04/01/20 19 2:31 PM EST documented as of this encounter Care Teams Tube Mill Operator Relationship Specialty Start Date End Date Tiffanie Avery MD [address] [place] [address] PCP - General Family Medicine 01/20/18 10/28/23 Tiffanie Avery MD [address] [place] [address] PCP - General Family Medicine 12/22/23 Stew Hankins III, MD Gastroenterology 10/25/10 Kirby Kaur MD [address] [place] [address] [address] [place] [address] Family Medicine 12/23/11 Nicholas Cristobal MD [address] [place] [address] [address] [place] [address] Gastroenterology 08/08/14 Charlie Ayala PA-C [address] [place] [address] [address] [place] [address] Physician Flat Breakdown Processor 02/05/15 Sully Castillo LPN 02/22/15 Florin Vicente MD [address] [facility] [place] [address] Pulmonary Disease 01/19/18 Sindi Mcfarland MA 09/22/18 Mao Powell MD [address] [place] [address] [place] [address] Orthopedic Surgery 05/22/21 Jeff Douglas MD [address] [place] [address] [place] [address] Orthopedic Surgery 07/18/21 documented as of this encounter
--- OUTSIDE RECORDS SUMMARY | 2024-12-28 10:37 | XMS_ITS | Encounter Summary ---
Author Organization [facility] Address [address] [place] [address] Care Team Providers Care Professional Soccer Player Name Role Phone Nhi AZUL MD, Morris Wilson Unavailable Haven lisailable Kirby Kaur MD Unavailable Nicholas Cristobal MD Unavailable Charlie Ayala PA-C Unavailable Sully Castillo LPN Unavailable Unavailable Florin Vicente MD Unavailable Tiffanie Avery MD Primary Care Provider [phone] Sindi Mcfarland MA Unavailable Unavailable Mao Powell MD Unavailable [phone] Jeff Douglas MD Unavailable [phone] Tiffanie Avery MD Primary Care Provider [phone] Reason for Visit * Reason Onset Date Comments Medications Refill 01/08/2023 Encounter Details Date Type Department Care Team (Late st Contact Info) Description 01/08/2023 Refill [facility] [address] [place] [address] [place] [address] Jennifer Lala LPN Coronary artery disease involving [place] coronary artery of [place] heart without angina pectoris; Type 2 diabetes mellitus without complication, unspecified whether ferry terminal supervisor insulin use; Iron deficiency; Insomnia, unspecified type [...] Description 06/12/2025 9:30 AM EST Office Visit [facility] [address], [address] [place] [address] Marcos Santana APRN [address] [place] [address],[address] [place] [id number] documented as of this encounter Visit Diagnoses Diagnosis Coronary artery disease involving [place] coronary artery of [place] heart without angina pectoris Type 2 diabetes mellitus without complication, unspecified whether ferry terminal supervisor insulin use (HCC) Iron deficiency Other disorders of iron metabolism Insomnia, unspecified type documented in this encounter Additional Health Concerns Assessment Noted Time PHQ-9 Depression Total Score: 0 04/01/20 19 2:31 PM EST documented as of this encounter Care Teams Professional Soccer Player Relationship Specialty Start Date End Date Tiffanie Avery MD [address] [place] [address] PCP - General Family Medicine 01/20/18 10/28/23 Tiffanie Avery MD [address] [place] [address] PCP - General Family Medicine 12/22/23 Stew Hankins III, MD Gastroenterology 10/25/10 Kirby Kaur MD [address] [place] [address] Family Medicine 12/23/11 Nicholas Cristobal MD [address] [place] [address] [place] [address] Gastroenterology 08/08/14 Charlie Ayala, GIRISH-C [address] [place] [address] Physician Conductor Yard 02/05/15 Sully Castillo LPN 02/22/15 Florin Vicente MD [address] [place] [address] [address] Pulmonary Disease 01/19/18 Sindi Mcfarland MA 09/22/18 Mao Powell MD [address] [place] [address] [address] Orthopedic Surgery 05/22/21 Jeff Douglas MD [address] [place] [address] Orthopedic Surgery 07/18/21 documented as of this encounter
--- OUTSIDE RECORDS SUMMARY | 2024-12-28 10:37 | XMS_ITS | Encounter Summary ---
Author Organization [facility] Address [address] [place] [address] Care Team Providers Care Steam Clothes Press Operator Name Role Phone Nhi AZUL MD, Morris Wilson Unavailable Haven lisailable Kirby Kaur MD Unavailable Nicholas Cristobal MD Unavailable Charlie Ayala PA-C Unavailable Sully Castillo LPN Unavailable Unavailable Florin Vicente MD Unavailable Tiffanie Avery MD Primary Care Provider [phone] Sindi Mcfarland MA Unavailable Unavailable Mao Powell MD Unavailable Jeff Douglas MD Unavailable Tiffanie Avery MD Primary Care Provider [phone] Encounter Details Date Type Department Care Team (Late st Contact Info) Description 06/01/2020 Orders Only [facility] [address] [place] [address] Rikki Antonio MD [address] [place] [address] Social History Tobacco Use Types [...] 9:30 AM EST Office Visit [facility] [place] [address] [place] [address] [address] [place] [id number] Marcos Santana APRN [address] [place] [address] [place], [place] [phone] documented as of this encounter Visit Diagnoses Not on filedocumented in this encounter Additional Health Concerns Assessment Noted Time PHQ-9 Depression Total Score: 0 04/01/20 19 2:31 PM EST documented as of this encounter Care Teams Steam Clothes Press Operator Relationship Specialty Start Date End Date Tiffanie Avery MD [address] [place] [address] PCP - General Family Medicine 01/20/18 10/28/23 Tiffanie Avery MD [address] [place] [address] PCP - General Family Medicine 12/22/23 Stew Hankins III, MD Gastroenterology 10/25/10 Kirby Kaur MD [address] [place] [address] [address] [place] [address] Family Medicine 12/23/11 Nicholas Cristobal MD [address] [place] [id number] Gastroenterology 08/08/14 Charlie Ayala, TORIC [address] [place] [phone] Physician Airway Traffic Controller 02/05/15 Sully Castillo LPN 02/22/15 [place] [address] [place] [address] [place] [address] Pulmonary Disease 01/19/18 Sindi Mcfarland MA 09/22/18 Mao Powell MD [address] [place] [address] [place] [address] Orthopedic Surgery 05/22/21 Jeff Douglas MD [address] [place] [address] [address] Orthopedic Surgery 07/18/21 documented as of this encounter
--- OUTSIDE RECORDS SUMMARY | 2024-12-28 10:37 | XMS_ITS | Encounter Summary ---
Author Organization [facility] Address [address] [place] [address] Care Team Providers Care Correction Officer [place] [facility] Name Role Phone Nhi AZUL MD, Morris Wilson Unavailable Haven lisailable Kirby Kaur MD Unavailable [phone] Nicholas Cristobal MD Unavailable Charlie Ayala PA-C Unavailable Sully Castillo LPN Unavailable Unavailable Florin Vicente MD Unavailable Tiffanie Avery MD Primary Care Provider [phone] Sindi Mcfarland MA Unavailable Unavailable Mao Powell MD Unavailable [phone] Jeff Douglas MD Unavailable [phone] Tiffanie Avery MD Primary Care Provider [phone] Reason for Visit * Reason Onset Date Comments Medications Refill 01/07/2023 Encounter Details Date Type Department Care Team (Late st Contact Info) Description 01/07/2023 Refill [facility] [address] [place] [address] [place] [address] Tiffanie Avery MD [facility] [place] [place] [address] Hypertension, unspecified type; Shortness of breath; Coronary artery disease involving [place] coronary artery of [place] heart without angina pectoris; Type 2 diabetes mellitus without complication, unspecified whether local company 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 use; Iron deficiency; Insomnia, unspecified type [...] Description 06/12/2025 9:30 AM EST Office Visit [facility] [address] [place] [address] Marcos Santana APRN [address] [place], [place] [address] [place] [address] [phone] documented as of this encounter Visit Diagnoses Diagnosis Hypertension, unspecified type Shortness of breath Coronary artery disease involving [place] coronary artery of [place] heart without angina pectoris Type 2 diabetes mellitus without complication, unspecified whether halfway insulin use (HCC) Iron deficiency Other disorders of iron metabolism Insomnia, unspecified type documented in this encounter Additional Health Concerns Assessment Noted Time PHQ-9 Depression Total Score: 0 04/01/20 19 2:31 PM EST documented as of this encounter Care Teams Correction Officer [place] [facility] Relationship Specialty Start Date End Date Tiffanie Avery MD [address] [place] [address] PCP - General Family Medicine 01/20/18 10/28/23 Tiffanie Avery MD [address] [place] [address] PCP - General Family Medicine 12/22/23 Stew Hankins III, MD Gastroenterology 10/25/10 Kirby Kaur MD [address] [place] [address] [address] Family Medicine 12/23/11 Nicholas Cristobal MD [address] [place] [address] [address] [place] [address] Gastroenterology 08/08/14 Charlie Ayala PA-C [address] [place] [address] [place] [address] Physician Machine Farmworker 02/05/15 Sully Castillo LPN 02/22/15 [place] [address] [place] [address] [address] Pulmonary Disease 01/19/18 Sindi Mcfarland MA 09/22/18 Mao Powell MD [address] [place] [address] [address] Orthopedic Surgery 05/22/21 Jeff Douglas MD [address] [place] [address] [address] Orthopedic Surgery 07/18/21 documented as of this encounter
--- OUTSIDE RECORDS SUMMARY | 2024-12-28 10:37 | XMS_ITS | Encounter Summary ---
Author Organization [facility] Address [address] [place] [address] Care Team Providers Care Press Maintainer Name Role Phone Nhi AZUL MD, Morris Wilson Unavailable Haven lisailable Kirby Kaur MD Unavailable [phone] Nicholas Cristobal MD Unavailable Charlie Ayala PA-C Unavailable [phone] Sully Castillo LPN Unavailable Unavailable Julio Samayoa APRN Primary Care Provider [phone] Julio Samayoa APRN Primary Care Provider [phone] Florin Vicente MD Unavailable Tiffanie Avery MD Primary Care Provider [phone] Sindi Mcfarland MA Unavailable Unavailable Mao Powell MD Unavailable [phone] Jeff Douglas MD Unavailable [phone] Tiffanie Avery MD Primary Care Provider [phone] Reason for Visit * Reason Onset Date Comments Medication Clarification 08/08/2016 Encounter Details Date Type Department Care Team (Late st Contact Info) Description 08/08/2016 Telephone [facility] [address] [place] [address] Julio Samayoa APRN [address] [place] [address] Medication Clarification Social History Tobacco [...] Description 06/12/2025 9:30 AM EST Office Visit [facility] [address], [address] [place] [address] Marcos Santana APRN [address] [place] [address],[address] [place], [place] [id number] documented as of this encounter Visit Diagnoses Not on filedocumented in this encounter Care Teams Press Maintainer Relationship Specialty Start Date End Date Julio Samayoa APRN [address] [place] [address] PCP - General nurse practitioner adult care 04/26/15 01/19/17 Julio Samayoa APRN [address] [place], [place] [address] PCP - General Family Practice 01/20/17 01/19/18 Tiffanie Avery MD [address] [place] [address] [id number] PCP - General Family Medicine 01/20/18 10/28/23 Tiffanie Avery MD [address] [place] [address] [id number] PCP - General Family Medicine 12/22/23 Stew Hankins III, MD Gastroenterology 10/25/10 Kirby Kaur MD [address] [place] [address] [address] [place] [address] Family Medicine 12/23/11 Nicholas Cristobal MD 613 [address] [address] [place], [place] [address] Gastroenterology 08/08/14 Charlie Ayala, TORIC [address] [place] [address] [id number] Physician Tire Assembler 02/05/15 Sully Castillo LPN 02/22/15 Florin Vicente MD [address] [facility] [place] [address] Pulmonary Disease 01/19/18 Sindi Mcfarland MA 09/22/18 Mao Powell MD [address] [place] [address] [place] [address] Orthopedic Surgery 05/22/21 Jeff Douglas MD [address] [place] [address] [address] Orthopedic Surgery 07/18/21 documented as of this encounter
--- OUTSIDE RECORDS SUMMARY | 2024-12-28 10:37 | XMS_ITS | Encounter Summary ---
Author Organization [facility] Address [address] [place] [address] Care Team Providers Care Barrow Worker Helper Name Role Phone Nhi AZUL MD, Morris Wilson Unavailable Haven lisailable Kirby Kaur MD Unavailable [phone] Nicholas Cristobal MD Unavailable Charlie Ayala PA-C Unavailable [phone] Sully Castillo LPN Unavailable Unavailable Julio Samayoa APRN Primary Care Provider [phone] Florin Vicente MD Unavailable Tiffanie Avery MD Primary Care Provider [phone] Sindi Mcfarland MA Unavailable Unavailable Mao Powell MD Unavailable [phone] Jeff Douglas MD Unavailable [phone] Tiffanie Avery MD Primary Care Provider [phone] Reason for Visit * Reason Onset Date Comments Results - Test 02/05/2017 stress Encounter Details Date Type Department Care Team (Late st Contact Info) Description 02/05/2017 Telephone [facility] [address], [address] [place] [address] Sybil Banegas Results - Test [...] 9:13 AM EDT Patient sees Dariana in [place], wants to know if we have stress results. Please advise [phone] documented in this encounter Plan of Treatment Upcoming Encounters Date Type Department Care Team (Late st Contact Info) Description 06/12/2025 9:30 AM EST Office Visit [facility] [address] [place] [address] Marcos Santana APRN [address] [place] [address],[address] [place], [place] [address] documented as of this encounter Visit Diagnoses Not on filedocumented in this encounter Care Teams Barrow Worker Helper Relationship Specialty Start Date End Date Julio Samayoa APRN [address] [place] [address] PCP - General Family Practice 01/20/17 01/19/18 Tiffanie Avery MD [address] [place] [address] PCP - General Family Medicine 01/20/18 10/28/23 Tiffanie Avery MD [address] [place] [address] PCP - General Family Medicine 12/22/23 Stew Hankins III, MD Gastroenterology 10/25/10 Kirby Kaur MD [address] [place] [address] [address] Family Medicine 12/23/11 Nicholas Cristobal MD [address] [place] [address] [address] [place] [address] Gastroenterology 08/08/14 Charlie Ayala, PAMindiC [address] [place] [address] [address] [place] [address] Physician Medical Sales Consultant 02/05/15 Sully Castillo LPN 02/22/15 [place] [address] [place] [address] [address] Pulmonary Disease 01/19/18 Sindi Mcfarland MA 09/22/18 Mao Powell MD [address] [place] [address] [place] [address] Orthopedic Surgery 05/22/21 Jeff Douglas MD [address] [place] [address] [address] Orthopedic Surgery 07/18/21 documented as of this encounter
--- OUTSIDE RECORDS SUMMARY | 2024-12-28 10:38 | XMS_ITS | Encounter Summary ---
Author Organization [facility] Address [address] [place] [address] Care Team Providers Care College And Career Counselor Name Role Phone Nhi AZUL MD, Morris Wilson Unavailable Haven vailable Kirby Kaur MD Unavailable [phone] Nicholas Cristobal MD Unavailable Charlie Ayala PA-C Unavailable Sully Castillo LPN Unavailable Unavailable Julio Samayoa APRN Primary Care Provider [phone] Florin Vicente MD Unavailable Tiffanie Avery MD Primary Care Provider [phone] Sindi Mcfarland MA Unavailable Unavailable Mao Powell MD Unavailable [phone] Jeff Douglas MD Unavailable [phone] Tiffanie Avery MD Primary Care Provider [phone] Reason for Visit * Reason Onset Date Comments Schedule Procedure 03/30/2017 Encounter Details Date Type Department Care Team (Late st Contact Info) Description 03/30/2017 Telephone [facility] [address], [address] [place] [address] Joann Ayoub MD [address] [place] [address] [address] [place] [address] Schedule Procedure Social History Tobacco [...] García - 03/31/2017 10:29 AM EST Left ms for patient to call me back. Per Dr Ayoub he is going to order a cta instead of stress. This will be done in [place]. Please advise patient if he calls back. * Telephone Encounter - Taya Dumont LPN - 03/30/2017 3:05 PM EST [place] discuss with kraig * Telephone Encounter - Nicki Gonzales - 03/30/2017 3:00 PM EST The only date available for the stress is April 13 to be done in [place] or April 13 in [place]. Please call them back and left them know which location. documented in this encounter Plan of Treatment Upcoming Encounters Date Type Department Care Team (Late st Contact Info) Description 06/12/2025 9:30 AM EST Office Visit [facility] [address], [address] [place] [address] Marcos Santana APRN [address] [place] [address],[address] [place] [address] documented as of this encounter Visit Diagnoses Not on filedocumented in this encounter Care Teams College And Career Counselor Relationship Specialty Start Date End Date Julio Samayoa APRN [address] [place] [address] PCP - General Family Practice 01/20/17 01/19/18 Tiffanie Avery MD [address] [place] [address] [place] [address] PCP - General Family Medicine 01/20/18 10/28/23 Tiffanie Avery MD [address] [place] [address] PCP - General Family Medicine 12/22/23 Stew Hankins III, MD Gastroenterology 10/25/10 Kirby Kaur MD [address] [place], [place] [address] Family Medicine 12/23/11 Nicholas Cristobal MD [address] [place] [address] Gastroenterology 08/08/14 Charlie Ayala PA-C [address] [place] [address] Physician Comber Setter 02/05/15 Sully Castillo LPN 02/22/15 Florin Vicente MD [address] [place] [address] [address] Pulmonary Disease 01/19/18 Sindi Mcfarland MA 09/22/18 Mao Powell MD [address] [place] [address] [address] Orthopedic Surgery 05/22/21 Jeff Douglas MD 613 23[facility] [address] [place] [address] Orthopedic Surgery 07/18/21 documented as of this encounter
--- OUTSIDE RECORDS SUMMARY | 2024-12-28 10:38 | XMS_ITS | Encounter Summary ---
Author Organization [facility] Address [address] [place] [address] Care Team Providers Care Morgue Keeper Name Role Phone Abhi Ruiz MD Primary Care Provider Unavailabl Rikki Stone DO Primary Care Provider [phone] Nhi AZUL MD, Morris Wilson Unavailable Haven Louie Pace MD Primary Care Provider [phone] Kirby Kaur MD Unavailable [phone] Maricruz Burris APRN Primary Care Provide r Nicholas Cristobal MD Unavailable Doctor, No Primary Care Provider UnavailCharlie Greenberg PA-C Unavailable Sully Castillo LPN Unavailable Unavailable Julio Samayoa APRN Primary Care Provider [phone] Julio Samayoa APRN Primary Care Provider [phone] Florin Vicente MD Unavailable Tiffanie Avery MD Primary Care Provider Sindi Mcfarland MA Unavailable Unavailable Mao Powell MD Unavailable [phone] Jeff Douglas MD Unavailable [phone] Tiffanie Avery MD Primary Care Provider [phone] Encounter Details Date Type Department Care Team [...] Upcoming Encounters Date Type Department Care Team ([facility] st Contact Info) Description 06/12/2025 9:30 AM EST Office Visit [facility] [address], [address] [place] [address] Marcos Santana APRN [address] [place] [address],[address] [place] [address] documented as of this encounter Visit Diagnoses Not on filedocumented in this encounter Care Teams Morgue Keeper Relationship Specialty Start Date End Date Abhi Ruiz MD PCP - General 12/29/07 10/04/09 Rikki Painter DO [address] [place] [address] PCP - General Family Medicine 10/05/09 06/12/11 Louie Purdy MD [address] [place] [address] PCP - General Family Medicine 06/13/11 07/05/14 Maricruz Burris APRN [address] [place] [address] PCP - General Nurse Practitioner 07/06/14 11/29/14 Otilia Abreu [place] PCP - General Family Medicine 11/30/14 04/25/15 Julio Samayoa APRN [address] [place] [address] PCP - General nurse practitioner adult care 04/26/15 01/19/17 Julio Samayoa APRN [address] [facility] [place] [address] PCP - General Family Practice 01/20/17 01/19/18 Tiffanie Avery MD [address] [place] [address] [place] [address] PCP - General Family Medicine 01/20/18 10/28/23 Tiffanie Avery MD [address] [place] [address] PCP - General Family Medicine 12/22/23 Stew Hankins III, MD Gastroenterology 10/25/10 Kirby Kaur MD [address] [place] [address] Family Medicine 12/23/11 Nicholas Cristobal MD [address] [place] [address] [address] [place] [address] Gastroenterology 08/08/14 Charlie Ayala, PA-C [address] [place] [address] [address] [place] [address] Physician Emu Farm Worker 02/05/15 Sully Castillo LPN 02/22/15 [place] [address] [place] [address] [address] Pulmonary Disease 01/19/18 Sindi Mcfarland MA 09/22/18 Mao Powell MD [address] [place] [address] [address] Orthopedic Surgery 05/22/21 Jeff Douglas MD 613 23[facility] [address] [place] [id number] Orthopedic Surgery 07/18/21 documented as of this encounter
--- OUTSIDE RECORDS SUMMARY | 2024-12-28 10:38 | XMS_ITS | Encounter Summary ---
Author Organization [facility] Address [address] [place] [address] Care Team Providers Care Jewel Hole Cornerer Name Role Phone Abhi Ruiz MD Primary Care Provider Unavailabl Rikki Stone DO Primary Care Provider [phone] Nhi AZUL MD, Morris Wilson Unavailable Haven Louie Pace MD Primary Care Provider Kirby Kaur MD Unavailable [phone] Maricruz Burris APRN Primary Care Provide r Nicholas Cristobal MD Unavailable Doctor, No Primary Care Provider UnavailCharlie Greenberg PA-C Unavailable Sully Castillo LPN Unavailable Unavailable Julio Samayoa APRN Primary Care Provider [phone] Julio Samayoa APRN Primary Care Provider [phone] Florin Vicente MD Unavailable Tiffanie Avery MD Primary Care Provider [phone] Sindi Mcfarland MA Unavailable Unavailable Mao Powell MD Unavailable [phone] Jeff Douglas MD Unavailable [phone] Tiffanie Avery MD Primary Care Provider Encounter [...] Upcoming Encounters Date Type Department Care Team ([facility] st Contact Info) Description 06/12/2025 9:30 AM EST Office Visit [facility] [address], [address] [place] [address] Marcos Santana APRN [address] [place] [address],[address] [place], [place] [address] documented as of this encounter Visit Diagnoses Not on filedocumented in this encounter Care Teams Jewel Hole Cornerer Relationship Specialty Start Date End Date Abhi Ruiz MD PCP - General 12/29/07 10/04/09 Rikki Painter DO [address] [place] [address] PCP - General Family Medicine 10/05/09 06/12/11 Louie Purdy MD [address] [place] [address] PCP - General Family Medicine 06/13/11 07/05/14 Maricruz Burris, MAIL DELIVERER [address] [place] [address] PCP - General Nurse Practitioner 07/06/14 11/29/14 Otilia Abreu [place] PCP - General Family Medicine 11/30/14 04/25/15 Julio Samayoa APRN [address] [place] [address] PCP - General nurse practitioner adult care 04/26/15 01/19/17 Julio Samayoa APRN [address] [place] [address] PCP - General Family Practice 01/20/17 01/19/18 Tiffanie Avery MD [address] [place] [address] [place] [address] PCP - General Family Medicine 01/20/18 10/28/23 Tiffanie Avery MD [address] [place] [address] [place] [address] PCP - General Family Medicine 12/22/23 Stew Hankins III, MD Gastroenterology 10/25/10 Kirby Kaur MD [address] [place] [address] [address] Family Medicine 12/23/11 Nicholas Cristobal MD [address] [place] [address] [address] [place] [address] Gastroenterology 08/08/14 Charlie Ayala, PA-C [address] [place] [address] [address] [place] [address] Physician Skull Grinder 02/05/15 Sully Castillo LPN 02/22/15 [place] [address] [place] [address] [address] Pulmonary Disease 01/19/18 Sindi Mcfarland MA 09/22/18 Mao Powell MD [address] [place] [address] [address] Orthopedic Surgery 05/22/21 Jeff Douglas MD 613 [address] [address] [place] [address] Orthopedic Surgery 07/18/21 documented as of this encounter
--- OUTSIDE RECORDS SUMMARY | 2024-12-28 10:38 | XMS_ITS | Encounter Summary ---
Author Organization [facility] Address [address] [place] [address] Care Team Providers Care Chemistry Lecturer Name Role Phone Abhi Ruiz MD Primary Care Provider Unavailabl Rikki Stone DO Primary Care Provider [phone] Nhi AZUL MD, Morris Wilson Unavailable Haven Louie Pace MD Primary Care Provider [phone] Kirby Kaur MD Unavailable [phone] Maricruz Burris APRN Primary Care Provide r Nicholas Cristobal MD Unavailable Doctor, No Primary Care Provider UnavailCharlie Greenberg PA-C Unavailable [phone] Sully Castillo LPN Unavailable Unavailable Julio Samayoa APRN Primary Care Provider [phone] Julio Samayoa APRN Primary Care Provider [phone] Florin Vicente MD Unavailable Tiffanie Avery MD Primary Care Provider Sindi Mcfarland MA Unavailable Unavailable Mao Powell MD Unavailable [phone] Jeff Douglas MD Unavailable [phone] Tiffanie Avery MD Primary Care Provider [phone] Encounter Details Date Type Department Care Team [...] Upcoming Encounters Date Type Department Care Team ([facility] st Contact Info) Description 06/12/2025 9:30 AM EST Office Visit [facility] [address], [address] [place] [address] Marcos Santana APRN [address] [place] [address],[address] [place], [place] [address] documented as of this encounter Visit Diagnoses Not on filedocumented in this encounter Care Teams Chemistry Lecturer Relationship Specialty Start Date End Date Abhi Ruiz MD PCP - General 12/29/07 10/04/09 Rikki Painter DO [address] [place] [address] PCP - General Family Medicine 10/05/09 06/12/11 Louie Purdy MD [address] [place] [address] PCP - General Family Medicine 06/13/11 07/05/14 Maricruz Burris, PACK ROOM OPERATOR [address] [place] [address] PCP - General Nurse Practitioner 07/06/14 11/29/14 Otilia Abreu [place] PCP - General Family Medicine 11/30/14 04/25/15 Julio Samayoa APRN [address] [place] [address] PCP - General nurse practitioner adult care 04/26/15 01/19/17 Julio Samayoa APRN [address] [place] [address] PCP - General Family Practice 01/20/17 01/19/18 Tiffanie Avery MD [address] [place] [address] [place] [address] PCP - General Family Medicine 01/20/18 10/28/23 Tiffanie Avery MD [address] [place] [address] [place] [address] PCP - General Family Medicine 12/22/23 Stew Hankins III, MD Gastroenterology 10/25/10 Kirby Kaur MD [address] [place] [address] [address] Family Medicine 12/23/11 Nicholas Cristobal MD [address] [place] [address] [address] [place] [address] Gastroenterology 08/08/14 Charlie Ayala, PA-C [address] [place] [address] [address] [place] [address] Physician Golf Teacher 02/05/15 Sully Castillo LPN 02/22/15 [place] [address] [place] [address] [address] Pulmonary Disease 01/19/18 Sindi Mcfarland MA 09/22/18 Mao Powell MD [address] [place] [address] [address] Orthopedic Surgery 05/22/21 Jeff Douglas MD 613 23[facility] [address] [place] [address] Orthopedic Surgery 07/18/21 documented as of this encounter
--- OUTSIDE RECORDS SUMMARY | 2024-12-28 10:38 | XMS_ITS | Encounter Summary ---
Author Organization [facility] Address [address] [place] [address] Care Team Providers Care Agribusiness Professor Name Role Phone Abhi Ruiz MD Primary Care Provider Unavailabl Rikki Stnoe DO Primary Care Provider [phone] Nhi AZUL MD, Morris Wilson Unavailable Haven Louie Pace MD Primary Care Provider Kirby Kaur MD Unavailable [phone] Maricruz Burris APRN Primary Care Provide r Nicholas Cristobal MD Unavailable Doctor, No Primary Care Provider UnavailCharlie Greenberg PA-C Unavailable Sully Castillo LPN Unavailable Unavailable Julio Samayoa APRN Primary Care Provider [phone] Julio Samayoa APRN Primary Care Provider [phone] Florin Vicente MD Unavailable Tiffanie Avery MD Primary Care Provider Sindi Mcfarland MA Unavailable Unavailable Mao Powell MD Unavailable [phone] Jeff Douglas MD Unavailable [phone] Tiffanie Avery MD Primary Care Provider Encounter [...] ([facility] st Contact Info) Description 06/12/2025 9:30 AM EST Office Visit [facility] [address], [address] [place] [address] Marcos Santana APRN [address] [place] [address],[address] [place] [address] documented as of this encounter Visit Diagnoses Not on filedocumented in this encounter Care Teams Agribusiness Professor Relationship Specialty Start Date End Date Abhi Ruiz MD PCP - General 12/29/07 10/04/09 Rikki Painter DO [address] [place] [address] PCP - General Family Medicine 10/05/09 06/12/11 Louie Purdy MD [address] [place] [address] PCP - General Family Medicine 06/13/11 07/05/14 Maricruz Burris APRN [address] [place] [address] PCP - General Nurse Practitioner 07/06/14 11/29/14 Otilia Abreu [place] PCP - General Family Medicine 11/30/14 04/25/15 Julio Samayoa APRN [address] [place] [address] PCP - General nurse practitioner adult care 04/26/15 01/19/17 Julio Samayoa APRN [address] [place] [facility] [place] [address] PCP - General Family Practice 01/20/17 01/19/18 Tiffanie Avery MD [address] [place] [address] [place] [address] PCP - General Family Medicine 01/20/18 10/28/23 Tiffanie Avery MD [address] [place] [address] PCP - General Family Medicine 12/22/23 Stew Hankins III, MD Gastroenterology 10/25/10 Kirby Kaur MD [address] [place] [address] Family Medicine 12/23/11 Nicholas Cristobal MD [address] [place] [address] [address] [place] [address] Gastroenterology 08/08/14 Charlie Ayala, PA-C [address] [place] [address] 430 [place] [address] Physician Brake Drum Molder 02/05/15 Sully Castillo LPN 02/22/15 [place] [address] [place] [address] [address] Pulmonary Disease 01/19/18 Sindi Mcfarland MA 09/22/18 Mao Powell MD [address] [place] [address] [address] Orthopedic Surgery 05/22/21 Jeff Douglas MD 613 23[facility] [address] [place] [address] Orthopedic Surgery 07/18/21 documented as of this encounter
--- OUTSIDE RECORDS SUMMARY | 2024-12-28 10:38 | XMS_ITS | Encounter Summary ---
Author Organization [facility] Address [address] [place] [address] Care Team Providers Care Flight Superintendent Name Role Phone Abhi Ruiz MD Primary Care Provider Unavailabl Rikki Stone DO Primary Care Provider [phone] Nhi AZUL MD, Morris Wilson Unavailable Haven Louie Pace MD Primary Care Provider Kirby Kaur MD Unavailable [phone] Maricruz Burris APRN Primary Care Provide r Nicholas Cristobal MD Unavailable Doctor, No Primary Care Provider UnavailCharlie Greenberg PA-C Unavailable Sully Castillo LPN Unavailable Unavailable Julio Samayoa APRN Primary Care Provider [phone] Julio Samayoa APRN Primary Care Provider [phone] Florin Vicente MD Unavailable Tiffanie Avery MD Primary Care Provider Sindi Mcfarland MA Unavailable Unavailable Mao Powell MD Unavailable [phone] Jeff Douglas MD Unavailable [phone] Tiffanie Avery MD Primary Care Provider [phone] Encounter Details Date Type Department Care Team [...] Upcoming Encounters Date Type Department Care Team ([facility] st Contact Info) Description 06/12/2025 9:30 AM EST Office Visit [facility] [address], [address] [place] [address] Marcos Santana APRN [address] [place] [address],[address] [place], [place] [id number] documented as of this encounter Visit Diagnoses Not on filedocumented in this encounter Care Teams Flight Superintendent Relationship Specialty Start Date End Date Abhi Ruiz MD PCP - General 12/29/07 10/04/09 Rikki Painter DO [address] [place] [address] PCP - General Family Medicine 10/05/09 06/12/11 Louie Purdy MD [address] [place] [address] PCP - General Family Medicine 06/13/11 07/05/14 Maricruz Burris, BUSINESS BANKING RELATIONSHIP MANAGER [address] [place] [address] PCP - General Nurse Practitioner 07/06/14 11/29/14 Otilia Abreu [place] PCP - General Family Medicine 11/30/14 04/25/15 Julio Samayoa APRN [address] [place] [address] PCP - General nurse practitioner adult care 04/26/15 01/19/17 Julio Samayoa APRN [address] [place] [address] PCP - General Family Practice 01/20/17 01/19/18 Tiffanie Avery MD [address] [place] [address] [place] [address] PCP - General Family Medicine 01/20/18 10/28/23 Tiffanie Avery MD [address] [place] [address] [place] [address] PCP - General Family Medicine 12/22/23 Stew Hankins III, MD Gastroenterology 10/25/10 Kirby Kaur MD [address] [place] [address] [address] Family Medicine 12/23/11 Nicholas Cristobal MD [address] [place] [address] [address] [place] [address] Gastroenterology 08/08/14 Charlie Ayala, PA-C [address] [place] [address] [address] [place] [address] Physician Logistics Officer 02/05/15 Sully Castillo LPN 02/22/15 [place] [address] [place] [address] [address] Pulmonary Disease 01/19/18 Sindi Mcfarland MA 09/22/18 Mao Powell MD [address] [place] [address] [address] Orthopedic Surgery 05/22/21 Jeff Douglas MD 613 23[facility] [address] [place] [address] Orthopedic Surgery 07/18/21 documented as of this encounter
--- OUTSIDE RECORDS SUMMARY | 2024-12-28 10:38 | XMS_ITS | Encounter Summary ---
Author Organization [facility] Address [address] [place] [address] Care Team Providers Care Belt Sewer Name Role Phone Abhi Ruiz MD Primary Care Provider Unavailabl Rikki Stone DO Primary Care Provider [phone] Nhi AZUL MD, Morris Wilson Unavailable Haven Louie Pace MD Primary Care Provider Kirby Kaur MD Unavailable [phone] Maricruz Burris APRN Primary Care Provide r Nicholas Cristobal MD Unavailable Doctor, No Primary Care Provider UnavailCharlie Greenberg PA-C Unavailable Sully Castillo LPN Unavailable Unavailable Julio Samayoa APRN Primary Care Provider [phone] Julio Samayoa APRN Primary Care Provider [phone] Florin Vicente MD Unavailable Tiffanie Avery MD Primary Care Provider Sindi Mcfarland MA Unavailable Unavailable Mao Powell MD Unavailable [phone] Jeff Douglas MD Unavailable [phone] Tiffanie Avery MD Primary Care Provider Encounter [...] Upcoming Encounters Date Type Department Care Team ([facility] st Contact Info) Description 06/12/2025 9:30 AM EST Office Visit [facility] [address], [address] [place] [address] Marcos Santana APRN [address] [place] [address],[address] [place], [place] [id number] documented as of this encounter Visit Diagnoses Not on filedocumented in this encounter Care Teams Belt Sewer Relationship Specialty Start Date End Date Abhi Ruiz MD PCP - General 12/29/07 10/04/09 Rikki Painter DO [address] [place] [address] PCP - General Family Medicine 10/05/09 06/12/11 Louie Purdy MD [address] [place] [address] PCP - General Family Medicine 06/13/11 07/05/14 Maricruz Burris, INFORMATION CLERK [address] [place] [address] PCP - General Nurse Practitioner 07/06/14 11/29/14 Otilia Abreu [place] PCP - General Family Medicine 11/30/14 04/25/15 Julio Samayoa APRN [address] [place] [address] PCP - General nurse practitioner adult care 04/26/15 01/19/17 Julio Samayoa APRN [address] [place] [address] PCP - General Family Practice 01/20/17 01/19/18 Tiffanie Avery MD [address] [place] [address] [place] [address] PCP - General Family Medicine 01/20/18 10/28/23 Tiffanie Avery MD [address] [place] [address] [place] [address] PCP - General Family Medicine 12/22/23 Stew Hankins III, MD Gastroenterology 10/25/10 Kirby Kaur MD [address] [place] [address] [address] Family Medicine 12/23/11 Nicholas Cristobal MD [address] [place] [address] [address] [place] [address] Gastroenterology 08/08/14 Charlie Ayala, PA-C [address] [place] [address] [address] [place] [address] Physician Paper Feeder 02/05/15 Sully Castillo LPN 02/22/15 [place] [address] [place] [address] [address] Pulmonary Disease 01/19/18 Sindi Mcfarland MA 09/22/18 Mao Powell MD [address] [place] [address] [address] Orthopedic Surgery 05/22/21 Jeff [place] MD 613 [address] [address] [place] [address] Orthopedic Surgery 07/18/21 documented as of this encounter
--- OUTSIDE RECORDS SUMMARY | 2024-12-28 10:38 | XMS_ITS | Encounter Summary ---
Author Organization [facility] Address [address] [place] [address] Care Team Providers Care Grinder Set Up Operator Centerless Name Role Phone Nhi AZUL MD, Morris Wilson Unavailable Haven vailable Kirby Kaur MD Unavailable [phone] Nicholas Cristobal MD Unavailable Charlie Ayala PA-C Unavailable Sully Castillo LPN Unavailable Unavailable Julio Samayoa APRN Primary Care Provider [phone] Florin Vicente MD Unavailable Tiffanie Avery MD Primary Care Provider [phone] Sindi Mcfarland MA Unavailable Unavailable Mao Powell MD Unavailable [phone] Jeff Douglas MD Unavailable [phone] Tiffanie Avery MD Primary Care Provider [phone] Reason for Referral * Radiology Services (Routine) - Closed Specialty Diagnoses / Procedures Referred By Contac t Referred To Contact Radiology Diagnoses Coronary artery disease involving [place] coronary artery of [place] heart with unstable angina pectoris (HCC) Coronary artery disease involving [place] heart, angina presence unspecified, unspecified vessel or lesion type Procedures CT Angiogram Coronary Joann Ayoub MD [address] [place] [address] Phone: tel: fax: MAIN CT [address] [place] [address] Phone: tel: Referral ID Status Reason Start Date Expiration Date Visits Re quested Visits Authorized [id number] Closed 03/31/2017 03/31/2018 1 1 Encounter Details Date Type Department Care Team ([facility] Contact Info) Description 03/31/2017 Orders Only [facility] [place] [address] [place] [address], [address] [place] [id number] Joann Ayoub MD [address] [place] [address] [address] [place] [address] Coronary artery disease involving [place] coronary artery of [place] heart with unstable angina pectoris (Primary Dx); Coronary artery disease involving [place] heart, angina presence unspecified, unspecified vessel or [...] Department Care Team (Late Contact Info) Description 06/12/2025 9:30 AM EST Office Visit [facility] [place] [address] [place] [address], [place] [phone] Marcos Santana APRN [address] [place] [address],[address] [place] [address] documented as of this encounter Results * CT Angiogram Coronary (04/02/2017 10:48 AM EST) Anatomical Region Laterality Modality Chest Computed Tomogra phy 04/02/2017 Narrative 04/02/2017 2:23 PM EST [facility] [address] [place] [address] Radiology PATIENT NAME: Weston Parson Sr. MR#: [id number] PROCEDURE DATE: 04/02/2017 ROOM#: ORDERING PHYS: Joann [...] Hurtado MD as TD: 04/02/2017 JOB #: [id number] Radiology Page 1 of 1 COPY Procedure Note Wilfred Cantu MD - 04/02/2017 [place] [address] Radiology PATIENT NAME: Weston ParsonSr. MR#: [id number] PROCEDURE DATE: 04/02/2017 ROOM#: ORDERING PHYS: Joann [...] Hurtado MD as TD: 04/02/2017 JOB #: [id number] Radiology Page 1 of 1COPY us Joann Ayoub MD IMG CT ORDERABLES Final Resu lt documented in this encounter Visit Diagnoses Diagnosis Coronary artery disease involving [place] coronary artery of [place] heart with unstable angina pectoris (HCC)- Primary Coronary artery disease involving [place] heart, angina presence unspecified, unspecified vessel or lesion type Coronary artery disease involving [place] coronary artery of [place] heart with unstable angina pectoris (HCC) Coronary artery disease involving [place] heart, angina presence unspecified, unspecified vessel or lesion type Atypical chest pain Other chest pain documented in this encounter Care Teams Grinder Set Up Operator Centerless Relationship Specialty Start Date End Date Julio Samayoa APRN [address] [place] [address] PCP - General Family Practice 01/20/17 01/19/18 Tiffanie Avery MD [address] [place] [address] PCP - General Family Medicine 01/20/18 10/28/23 Tiffanie Avery MD [address] [place] [address] PCP - General Family Medicine 12/22/23 Stew Hankins III, MD Gastroenterology 10/25/10 Kirby Kaur MD [address] [place] [address] [place] [address] Family Medicine 12/23/11 Nicholas Cristobal MD [address] [place] [address] [address] [place] [address] Gastroenterology 08/08/14 Charlie Ayala, PA-C [address] [place] [address] [address] [place] [address] Physician Ton Cylinder Inspector 02/05/15 Sully Castillo LPN 02/22/15 Florin Vicente MD [address] [facility] [address] [address] Pulmonary Disease 01/19/18 Sindi Mcfarland MA 09/22/18 Mao Powell MD [address] [place] [address] [address] Orthopedic Surgery 05/22/21 Jeff [place] MD [address] [place] [address] Orthopedic Surgery 07/18/21 documented as of this encounter
--- OUTSIDE RECORDS SUMMARY | 2024-12-28 10:38 | XMS_ITS | Encounter Summary ---
Author Organization [facility] Address [address] [place] [address] Care Team Providers Care Industrial Robotics Mechanic Name Role Phone Abhi Ruiz MD Primary Care Provider Unavailabl Rikki Stone DO Primary Care Provider [phone] Nhi AZUL MD, Morris Wilson Unavailable Haven Louie Pace MD Primary Care Provider Kirby Kaur MD Unavailable [phone] Maricruz Burris APRN Primary Care Provide r Nicholas Cristobal MD Unavailable Doctor, No Primary Care Provider UnavailCharlie Greenberg PA-C Unavailable Sully Castillo LPN Unavailable Unavailable Julio Samayoa APRN Primary Care Provider [phone] Julio Samayoa APRN Primary Care Provider [phone] Florin Vicente MD Unavailable Tiffanie Avery MD Primary Care Provider Sindi Mcfarland MA Unavailable Unavailable Mao Powell MD Unavailable [phone] Jeff Douglas MD Unavailable [phone] Tiffanie Avery MD Primary Care Provider Encounter [...] Upcoming Encounters Date Type Department Care Team ([facility] st Contact Info) Description 06/12/2025 9:30 AM EST Office Visit [facility] [address], [address] [place] [address] Marcos Santana APRN [address] [place] [address],[address] [place], [place] [id number] documented as of this encounter Visit Diagnoses Not on filedocumented in this encounter Care Teams Industrial Robotics Mechanic Relationship Specialty Start Date End Date Abhi Ruiz MD PCP - General 12/29/07 10/04/09 Rikki Painter DO [address] [place] [address] PCP - General Family Medicine 10/05/09 06/12/11 Louie Purdy MD [address] [place] [address] PCP - General Family Medicine 06/13/11 07/05/14 Maricruz Burris, STATISTICS TUTOR [address] [place] [address] PCP - General Nurse Practitioner 07/06/14 11/29/14 Otilia Abreu [place] PCP - General Family Medicine 11/30/14 04/25/15 Julio Samayoa APRN [address] [place] [address] PCP - General nurse practitioner adult care 04/26/15 01/19/17 Julio Samayoa APRN [address] [place] [address] PCP - General Family Practice 01/20/17 01/19/18 Tiffanie Avery MD [address] [place] [address] [place] [address] PCP - General Family Medicine 01/20/18 10/28/23 Tiffanie Avery MD [address] [place] [address] [place] [address] PCP - General Family Medicine 12/22/23 Stew Hankins III, MD Gastroenterology 10/25/10 Kirby Kaur MD [address] [place] [address] [address] Family Medicine 12/23/11 Nicholas Cristobal MD [address] [place] [address] [address] [place] [address] Gastroenterology 08/08/14 Charlie Ayala, PA-C [address] [place] [address] [address] [place] [address] Physician Truck Driver Teamster 02/05/15 Sully Castillo LPN 02/22/15 [place] [address] [place] [address] [address] Pulmonary Disease 01/19/18 Sindi Mcfarland MA 09/22/18 Mao Powell MD [address] [place] [address] [address] Orthopedic Surgery 05/22/21 Jeff Douglas MD 613 [facility] [address] [place] [address] Orthopedic Surgery 07/18/21 documented as of this encounter
--- OUTSIDE RECORDS SUMMARY | 2024-12-28 10:38 | XMS_ITS | Encounter Summary ---
Author Organization [facility] Address [address] [place] [address] Care Team Providers Care Roaster Helper Name Role Phone Nhi AZUL MD, Morris Wilson Unavailable Haven lisailable Louie Purdy MD Primary Care Provider [phone] Kirby Kaur MD Unavailable [phone] Maricruz Burris APRN Primary Care Provide r Nicholas Cristobal MD Unavailable Doctor, No Primary Care Provider UnavailCharlie Greenberg PA-C Unavailable Sully Castillo LPN Unavailable Unavailable Julio Samayoa APRN Primary Care Provider [phone] Julio Samayoa APRN Primary Care Provider [phone] Florin Vicente MD Unavailable Tiffanie Avery MD Primary Care Provider [phone] Sindi Mcfarland MA Unavailable Unavailable Mao Powell MD Unavailable [phone] Jeff Douglas MD Unavailable [phone] Tiffanie Avery MD Primary Care Provider [phone] Reason for Visit * Reason Onset Date Comments Medications Refill 03/25/2014 Encounter Details Date Type Department Care Team (Late st Contact Info) Description 03/25/2014 Refill [facility] [address] [place] [address] Mora Costa LPN Neural foraminal stenosis of [...] 9:30 AM EST Office Visit [facility] [address], [address] [place] [address] Marcos Santana APRN [address] [place] [address],[address] [place] [address] documented as of this encounter Visit Diagnoses Diagnosis 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 Spinal stenosis, lumbar region, without neurogenic claudication Lumbar radiculopathy Thoracic or lumbosacral neuritis or radiculitis, unspecified Chronic pain Other chronic pain documented in this encounter Care Teams Roaster Helper Relationship Specialty Start Date End Date Louie Purdy MD [address] [place] [address] PCP - General Family Medicine 06/13/11 07/05/14 Maricruz Burris, MAINTAINER [employer] [address] [place] [address] PCP - General Nurse Practitioner 07/06/14 11/29/14 Otilia Abreu [place] PCP - General Family Medicine 11/30/14 04/25/15 Julio Samayoa APRN [address] [place] [address] PCP - General nurse practitioner adult care 04/26/15 01/19/17 Julio Samayoa APRN [address] [place] [id number] PCP - General Family Practice 01/20/17 01/19/18 Tiffanie Avery MD [address] [place] [address] PCP - General Family Medicine 01/20/18 10/28/23 Tiffanie Avery MD [address] [place] [address] PCP - General Family Medicine 12/22/23 Stew Hankins III, MD Gastroenterology 10/25/10 Kirby Kaur MD [address] [place] [address] Family Medicine 12/23/11 Nicholas Cristobal MD [address] [place] [address] Gastroenterology 08/08/14 Charlie Ayala, PA-C [address] [place] [address] Physician Publicity Manager 02/05/15 Sully Castillo LPN 02/22/15 Florin Vicente MD [address] [place] [address] [place] [address] Pulmonary Disease 01/19/18 Sindi Mcfarland MA 09/22/18 Mao Powell MD [address] [place] [address] Orthopedic Surgery 05/22/21 Jeff Douglas MD 613 23[facility] [address] [address] Orthopedic Surgery 07/18/21 documented as of this encounter
--- OUTSIDE RECORDS SUMMARY | 2024-12-28 10:38 | XMS_ITS | Encounter Summary ---
Author Organization [facility] Address [address] [place] [address] Care Team Providers Care Construction Job Cost Estimator Name Role Phone Abhi Ruiz MD Primary Care Provider Unavailabl Rikki Stone DO Primary Care Provider [phone] Nhi AZUL MD, Morris Wilson Unavailable Haven Louie Pace MD Primary Care Provider Kirby Kaur MD Unavailable [phone] Maricruz Burris APRN Primary Care Provide r Nicholas Cristobal MD Unavailable Doctor, No Primary Care Provider UnavailCharlie Greenberg PA-C Unavailable Sully Castillo LPN Unavailable Unavailable Julio Samayoa APRN Primary Care Provider [phone] Julio Samayoa APRN Primary Care Provider [phone] Florin Vicente MD Unavailable Tiffanie Avery MD Primary Care Provider [phone] Sindi Mcfarland MA Unavailable Unavailable Mao Powell MD Unavailable [phone] Jeff oDuglas MD Unavailable [phone] Tiffanie Avery MD Primary Care Provider Encounter [...] Upcoming Encounters Date Type Department Care Team ([facility] st Contact Info) Description 06/12/2025 9:30 AM EST Office Visit [facility] [address], [address] [place] [address] Marcos Santana APRN [address] [place] [address],[address] [place] [address] documented as of this encounter Visit Diagnoses Not on filedocumented in this encounter Care Teams Construction Job Cost Estimator Relationship Specialty Start Date End Date Abhi Ruiz MD PCP - General 12/29/07 10/04/09 Rikki Painter DO [address] [place] [address] PCP - General Family Medicine 10/05/09 06/12/11 Louie Purdy MD [address] [place] [address] PCP - General Family Medicine 06/13/11 07/05/14 Maricruz Burris APRN [address] [place] [address] PCP - General Nurse Practitioner 07/06/14 11/29/14 Otilia Abreu [place] PCP - General Family Medicine 11/30/14 04/25/15 Julio Samayoa APRN [address] [place] [address] PCP - General nurse practitioner adult care 04/26/15 01/19/17 Julio Samayoa APRN [address] [place] [place] [address] PCP - General Family Practice 01/20/17 01/19/18 Tiffanie Avery MD [address] [place] [address] [place] [address] PCP - General Family Medicine 01/20/18 10/28/23 Tiffanie Avery MD [address] [place] [address] PCP - General Family Medicine 12/22/23 Stew Hankins III, MD Gastroenterology 10/25/10 Kirby Kaur MD [address] [place] [address] Family Medicine 12/23/11 Nicholas Cristobal MD [address] [place] [address] [address] [place] [address] Gastroenterology 08/08/14 Charlie Ayala, PA-C [address] [place] [address] [address] [place] [address] Physician Film Cleaner 02/05/15 Sully Castillo LPN 02/22/15 [place] [address] [place] [address] [address] Pulmonary Disease 01/19/18 Sindi Mcfarland MA 09/22/18 Mao Powell MD [address] [place] [address] [address] Orthopedic Surgery 05/22/21 Jeff Douglas MD 613 23[facility] [address] [place] [address] Orthopedic Surgery 07/18/21 documented as of this encounter
--- OUTSIDE RECORDS SUMMARY | 2024-12-28 10:38 | XMS_ITS | Encounter Summary ---
Author Organization [facility] Address [address] [place] [address] Care Team Providers Care Statistical Consultant Name Role Phone Nhi AZUL MD, Morris Wilson Unavailable Haven vailable Louie Purdy MD Primary Care Provider [phone] Kirby Kaur MD Unavailable [phone] Maricruz Burris APRN Primary Care Provide r Nicholas Cristobal MD Unavailable Doctor, No Primary Care Provider UnavailCharlie Greenberg PA-C Unavailable [phone] Sully Castillo LPN Unavailable Unavailable Julio Samayoa APRN Primary Care Provider [phone] Julio Samayoa APRN Primary Care Provider [phone] Florin Vicente MD Unavailable Tiffanie Avery MD Primary Care Provider [phone] Sindi Mcfarland MA Unavailable Unavailable Mao Powell MD Unavailable [phone] Jeff Douglas MD Unavailable [phone] Tiffanie Avery MD Primary Care Provider [phone] Encounter Details Date Type Department Care Team (Late st Contact Info) Description 03/25/2014 Orders Only [facility] [address] [place] [address] Louie Purdy MD [address] [place] [address] Neural foraminal stenosis of lumbar [...] 9:30 AM EST Office Visit [facility] [address] [place] [address] Marcos Santana APRN [address] [place], [place] [address] [place] [address] documented as of this encounter Visit Diagnoses Diagnosis 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 Spinal stenosis, lumbar region, without neurogenic claudication DM (diabetes mellitus) ([facility]) Type II or unspecified type diabetes mellitus without mention of complication, not stated as uncontrolled Lumbar radiculopathy Thoracic or lumbosacral neuritis or radiculitis, unspecified Chronic pain Other chronic pain MDD (major depressive disorder) Major depressive disorder, single episode, unspecified Insomnia Insomnia, unspecified CAD (coronary artery disease) Coronary atherosclerosis of unspecified type of vessel, chehalis or graft LC (generalized anxiety disorder) Generalized anxiety disorder Stressful life event affecting family Other family disruption documented in this encounter Care Teams Statistical Consultant Relationship Specialty Start Date End Date Louie Purdy MD [address] [place] [address] PCP - General Family Medicine 06/13/11 07/05/14 Maricruz Burris, DICER OPERATOR [address] [place] [address] PCP - General Nurse Practitioner 07/06/14 11/29/14 Otilia Abreu [place] PCP - General Family Medicine 11/30/14 04/25/15 Julio Samayoa APRN [address] [place] [address] PCP - General nurse practitioner adult care 04/26/15 01/19/17 Julio Samayoa APRN [address] [place] [address] PCP - General Family Practice 01/20/17 01/19/18 Tiffanie Avery MD [address] [place] [address] [id number] PCP - General Family Medicine 01/20/18 10/28/23 Tiffanie Avery MD [address] [place] [address] PCP - General Family Medicine 12/22/23 Stew Hankins III, MD Gastroenterology 10/25/10 Kirby Kaur MD [address] [place] [address] Family Medicine 12/23/11 Nicholas Cristobal MD [address] [address] Gastroenterology 08/08/14 Charlie Ayala, ALKA [address] 0[address] Physician Mason Tender 02/05/15 Sully Castillo LPN 02/22/15 Florin Vicente MD [address] [facility] [place] [address] Pulmonary Disease 01/19/18 Sindi Mcfarland MA 09/22/18 Mao Powell MD [address] [place] [address] [place] [address] Orthopedic Surgery 05/22/21 Jeff Douglas MD [address] [place] [address] [place] [address] Orthopedic Surgery 07/18/21 documented as of this encounter
--- OUTSIDE RECORDS SUMMARY | 2024-12-28 10:38 | XMS_ITS | Encounter Summary ---
Author Organization [facility] Address [address] [place] [address] Care Team Providers Care Operations Management Trainee Name Role Phone Abhi Ruiz MD Primary Care Provider Unavailabl Rikki Stone DO Primary Care Provider [phone] Nhi AZUL MD, Morris Wilson Unavailable Haven Louie Pace MD Primary Care Provider [phone] Kirby Kaur MD Unavailable [phone] Maricruz Burris APRN Primary Care Provide r Nicholas Cristobal MD Unavailable Doctor, No Primary Care Provider UnavailCharlie Greenberg PA-C Unavailable Sully Castillo LPN Unavailable Unavailable Julio Samayoa APRN Primary Care Provider [phone] Julio Samayoa APRN Primary Care Provider [phone] Florin Vicente MD Unavailable Tiffanie Avery MD Primary Care Provider [phone] Sindi Mcfarland MA Unavailable Unavailable Mao Powell MD Unavailable [phone] Jeff Douglas MD Unavailable [phone] Tiffanie Avery MD Primary Care Provider [phone] Encounter Details Date Type Department Care Team [...] ([facility] st Contact Info) Description 06/12/2025 9:30 AM EST Office Visit [facility] [address], [address] [place] [address] Marcos Santana APRN [address] [place] [address],[address] [place], [place] [id number] documented as of this encounter Visit Diagnoses Not on filedocumented in this encounter Care Teams Operations Management Trainee Relationship Specialty Start Date End Date Abhi Ruiz MD PCP - General 12/29/07 10/04/09 Rikki Painter DO [address] [place] [address] PCP - General Family Medicine 10/05/09 06/12/11 Louie Purdy MD [address] [place] [address] PCP - General Family Medicine 06/13/11 07/05/14 Maricruz Burris, FIRE FIGHTER [employer] [address] [place] [address] PCP - General Nurse Practitioner 07/06/14 11/29/14 Otilia Abreu [place] PCP - General Family Medicine 11/30/14 04/25/15 Julio Samayoa APRN [address] [place] [address] PCP - General nurse practitioner adult care 04/26/15 01/19/17 Julio Samayoa APRN [address] [place] [address] PCP - General Family Practice 01/20/17 01/19/18 Tiffanie Avery MD [address] [place] [address] [place] [address] PCP - General Family Medicine 01/20/18 10/28/23 Tiffanie Avery MD [address] [place] [address] [place] [address] PCP - General Family Medicine 12/22/23 Stew Hankins III, MD Gastroenterology 10/25/10 Kirby Kaur MD [address] [place] [address] [address] Family Medicine 12/23/11 Nicholas Cristobal MD [address] [place] [address] [address] [place] [address] Gastroenterology 08/08/14 Charlie Ayala, PA-C [address] [place] [address] [address] [place] [address] Physician Jig And Fixture Builder 02/05/15 Sully Castillo LPN 02/22/15 [place] [address] [place] [address] [address] Pulmonary Disease 01/19/18 Sindi Mcfarland MA 09/22/18 Mao Powell MD [address] [place] [address] [address] Orthopedic Surgery 05/22/21 Jeff Douglas MD [address] [address] [place] [address] Orthopedic Surgery 07/18/21 documented as of this encounter
--- OUTSIDE RECORDS SUMMARY | 2024-12-28 10:38 | XMS_ITS | Encounter Summary ---
Author Organization [facility] Address [address] [place] [address] Care Team Providers Care Carbide Tool Maker Name Role Phone Nhi AZUL MD, Morris Wilson Unavailable Haven lisailable Kirby Kaur MD Unavailable [phone] Nicholas Cristobal MD Unavailable Charlie Ayala PA-C Unavailable Sully Castillo LPN Unavailable Unavailable Julio Samayoa APRN Primary Care Provider [phone] Florin Vicente MD Unavailable Tiffanie Avery MD Primary Care Provider [phone] Sindi Mcfarland MA Unavailable Unavailable Mao Powell MD Unavailable Jeff Douglas MD Unavailable [phone] Tiffanie Avery MD Primary Care Provider [phone] Encounter Details Date Type Department Care Team (Late st Contact Info) Description 04/03/2017 Telephone [facility] [address] [place] [address], [address] [place] [address] Joann Ayoub MD [address] [place] [address] [address] [place] [address] Social History Tobacco Use Types [...] AM EST Office Visit [facility] [address] [place] [address] Marcos Santana APRN [address] [place], [place] [address] [address] [place] [address] documented as of this encounter Visit Diagnoses Not on filedocumented in this encounter Care Teams Carbide Tool Maker Relationship Specialty Start Date End Date Julio Samayoa APRN [address] [place] [address] PCP - General Family Practice 01/20/17 01/19/18 Tiffanie Avery MD [address] [place] [address] PCP - General Family Medicine 01/20/18 10/28/23 Tiffanie Avery MD [address] [place] [address] PCP - General Family Medicine 12/22/23 Stew Hankins III, MD Gastroenterology 10/25/10 Kirby Kaur MD [address] [place] [address] [address] [place] [address] Family Medicine 12/23/11 Nicholas Cristobal MD [address] [place] [address] Gastroenterology 08/08/14 Charlie Ayala PA-C [address] [place] [address] Physician Environmental Assistant 02/05/15 Sully Castillo LPN 02/22/15 [place] [address] [place] [address] [place] [address] Pulmonary Disease 01/19/18 Sindi Mcfarland MA 09/22/18 Mao Powell MD [address] [place] [address] Orthopedic Surgery 05/22/21 Jeff Douglas MD [address] [place] [address] Orthopedic Surgery 07/18/21 documented as of this encounter
--- OUTSIDE RECORDS SUMMARY | 2024-12-28 10:38 | XMS_ITS | Encounter Summary ---
Author Organization [facility] Address [address] [place] [address] Care Team Providers Care Japanese Professor Name Role Phone Nhi AZUL MD, Morris Wilson Unavailable Haven lisailaKirby Woods MD Unavailable [phone] Nicholas Cristobal MD Unavailable Charlie Ayala PA-C Unavailable [phone] Sully Castillo LPN Unavailable Unavailable Florin Vicente MD Unavailable Tiffanie Avery MD Primary Care Provider [phone] Sindi Mcfarland MA Unavailable Unavailable Mao Powell MD Unavailable [phone] Jeff Douglas MD Unavailable [phone] Tiffanie Avery MD Primary Care Provider [phone] Encounter Details Date Type Department Care Team (Late st Contact Info) Description 06/04/2018 Telephone [facility] [address], [address] [place] [address] Joann Ayoub MD [address] [place] [address] Social History Tobacco Use Types Packs/Day [...] 9:30 AM EST Office Visit [facility] [address], [address] [place] [address] Marcos Santana APRN [address] [place], [place] [address] [place], [place] [address] documented as of this encounter Visit Diagnoses Not on filedocumented in this encounter Additional Health Concerns Assessment Noted Time PHQ-9 Depression Total Score: 0 12/25/19 18 10:45 AM EDT documented as of this encounter Care Teams Japanese Professor Relationship Specialty Start Date End Date Tiffanie Avery MD [address] [place] [address] PCP - General Family Medicine 01/20/18 10/28/23 Tiffanie Avery MD [address] [place] [address] PCP - General Family Medicine 12/22/23 Stew Hankins III, MD Gastroenterology 10/25/10 Kirby Kaur MD [address] [place] [address] Family Medicine 12/23/11 Nicholas Cristobal MD [address] [place] [address] Gastroenterology 08/08/14 Charlie Ayala PA-C [address] [place] [address] Physician Director Of Fundraising 02/05/15 Sully Castillo LPN 02/22/15 [place] [address] [place] [address] [address] Pulmonary Disease 01/19/18 Sindi Mcfarland MA 09/22/18 Mao Powell MD [address] [place] [address] [place] [address] Orthopedic Surgery 05/22/21 Jeff Douglas MD [address] [place] [address] [address] Orthopedic Surgery 07/18/21 documented as of this encounter
--- OUTSIDE RECORDS SUMMARY | 2024-12-28 10:38 | XMS_ITS | Encounter Summary ---
Author Organization [facility] Address [address] [place] [address] Care Team Providers Care Interior Mechanic Name Role Phone Abhi Ruiz MD Primary Care Provider Unavailabl Rikki Stone DO Primary Care Provider [phone] Nhi AZUL MD, Morris Wilson Unavailable Haven Louie Pace MD Primary Care Provider Kirby Kaur MD Unavailable [phone] Maricruz Burris APRN Primary Care Provide r Nicholas Cristobal MD Unavailable Doctor, No Primary Care Provider UnavailCharlie Greenberg PA-C Unavailable Sully Castillo LPN Unavailable Unavailable Julio Samayoa APRN Primary Care Provider [phone] Julio Samayoa APRN Primary Care Provider [phone] Florin Vicente MD Unavailable Tiffanie Avery MD Primary Care Provider Sindi Mcfarland MA Unavailable Unavailable Mao Powell MD Unavailable [phone] Jeff Douglas MD Unavailable [phone] Tiffanie Avery MD Primary Care Provider [phone] Encounter Details Date Type Department Care Team [...] Date Type Department Care Team ([facility] st Contact Info) Description 06/12/2025 9:30 AM EST Office Visit [facility] [address], [address] [place] [address] Marcos Santana APRN [address] [place] [address],[address] [place], [place] [id number] documented as of this encounter Visit Diagnoses Not on filedocumented in this encounter Care Teams Interior Mechanic Relationship Specialty Start Date End Date Abhi Ruiz MD PCP - General 12/29/07 10/04/09 Rikki Painter DO [address] [place] [address] PCP - General Family Medicine 10/05/09 06/12/11 Louie Purdy MD [address] [place] [address] PCP - General Family Medicine 06/13/11 07/05/14 Maricruz Burris, RIPENING ROOM OPERATOR [address] [place] [address] PCP - General Nurse Practitioner 07/06/14 11/29/14 Otilia Abreu [place] PCP - General Family Medicine 11/30/14 04/25/15 Julio Samayoa APRN [address] [place] [address] PCP - General nurse practitioner adult care 04/26/15 01/19/17 Julio Samayoa APRN [address] [place] [address] PCP - General Family Practice 01/20/17 01/19/18 Tiffanie Avery MD [address] [place] [address] [place] [address] PCP - General Family Medicine 01/20/18 10/28/23 Tiffanie Avery MD [address] [place] [address] [place] [address] PCP - General Family Medicine 12/22/23 Stew Hankins III, MD Gastroenterology 10/25/10 Kirby Kaur MD [address] [place] [address] [address] Family Medicine 12/23/11 Nicholas Cristobal MD [address] [place] [address] [address] [place] [address] Gastroenterology 08/08/14 Charlie Ayala, PA-C [address] [place] [address] [address] [place] [address] Physician Medical Lab Specialist 02/05/15 Sully Castillo LPN 02/22/15 [place] [address] [place] [address] [address] Pulmonary Disease 01/19/18 Sindi Mcfarland MA 09/22/18 Mao Powell MD [address] [place] [address] [address] Orthopedic Surgery 05/22/21 Jeff Douglas MD [address] [address] [place] [address] Orthopedic Surgery 07/18/21 documented as of this encounter
--- OUTSIDE RECORDS SUMMARY | 2024-12-28 10:38 | XMS_ITS | Encounter Summary ---
Author Organization [facility] Address [address] [place] [address] Care Team Providers Care Supervisor Extrusion Name Role Phone Abhi Ruiz MD Primary Care Provider Unavailabl Rikki Stone DO Primary Care Provider [phone] Nhi AZUL MD, Morris Wilson Unavailable Haven Louie Pace MD Primary Care Provider Kirby Kaur MD Unavailable [phone] Maricruz Burris APRN Primary Care Provide r Nicholas Cristobal MD Unavailable Doctor, No Primary Care Provider UnavailCharlie Greenberg PA-C Unavailable Sully Castillo LPN Unavailable Unavailable Julio Samayoa APRN Primary Care Provider [phone] Julio Samayoa APRN Primary Care Provider [phone] Florin Vicente MD Unavailable Tiffanie Avery MD Primary Care Provider [phone] Sindi Mcfarland MA Unavailable Unavailable Mao Powell MD Unavailable [phone] Jeff Douglas MD Unavailable [phone] Tiffanie Avery MD Primary Care Provider [phone] Encounter Details Date Type Department Care Team [...] Upcoming Encounters Date Type Department Care Team ([facility] st Contact Info) Description 06/12/2025 9:30 AM EST Office Visit [facility] [address], [address] [place] [address] Marcos Santana APRN [address] [place] [address],[address] [place], [place] [address] documented as of this encounter Visit Diagnoses Not on filedocumented in this encounter Care Teams Supervisor Extrusion Relationship Specialty Start Date End Date Abhi Ruiz MD PCP - General 12/29/07 10/04/09 Rikki Painter DO [address] [place] [address] PCP - General Family Medicine 10/05/09 06/12/11 Louie Purdy MD [address] [place] [address] PCP - General Family Medicine 06/13/11 07/05/14 Maricruz Burris, MOLDING MACHINE SETTER [address] [place] [address] PCP - General Nurse Practitioner 07/06/14 11/29/14 Otilia Abreu [place] PCP - General Family Medicine 11/30/14 04/25/15 Julio Samayoa APRN [address] [place] [address] PCP - General nurse practitioner adult care 04/26/15 01/19/17 Julio Samayoa APRN [address] [place] [address] PCP - General Family Practice 01/20/17 01/19/18 Tiffanie Avery MD [address] [place] [address] [place] [address] PCP - General Family Medicine 01/20/18 10/28/23 Tiffanie Avery MD [address] [place] [address] [place] [address] PCP - General Family Medicine 12/22/23 Stew Hankins III, MD Gastroenterology 10/25/10 Kirby Kaur MD [address] [place] [address] [address] Family Medicine 12/23/11 Nicholas Cristobal MD [address] [place] [address] [address] [place] [address] Gastroenterology 08/08/14 Charlie Ayala, PA-C [address] [place] [address] [address] [place] [address] Physician Sonography Technician 02/05/15 Sully Castillo LPN 02/22/15 [place] [address] [place] [address] [address] Pulmonary Disease 01/19/18 Sindi Mcfarland MA 09/22/18 Mao Powell MD [address] [place] [address] [address] Orthopedic Surgery 05/22/21 Jeff Douglas MD 613 [address] [address] [place] [address] Orthopedic Surgery 07/18/21 documented as of this encounter
--- OUTSIDE RECORDS SUMMARY | 2024-12-28 10:38 | XMS_ITS | Encounter Summary ---
Author Organization [facility] Address [address] [place] [address] Care Team Providers Care Certifier Name Role Phone Abhi Ruiz MD Primary Care Provider Unavailabl Rikki Stone DO Primary Care Provider [phone] Nhi AZUL MD, Morris Wilson Unavailable Haven Louie Pace MD Primary Care Provider [phone] Kirby Kaur MD Unavailable [phone] Maricruz Burris APRN Primary Care Provide r Nicholas Cristobal MD Unavailable Doctor, No Primary Care Provider UnavailCharlie Greenberg-Lobito Unavailable [phone] Sully Castillo LPN Unavailable Unavailable Julio Samayoa APRN Primary Care Provider [phone] Julio Samayoa APRN Primary Care Provider [phone] Florin Vicente MD Unavailable Tiffanie Avery MD Primary Care Provider [phone] Sindi Mcfarland MA Unavailable Unavailable Mao Powell MD Unavailable [phone] Jeff Douglas MD Unavailable [phone] Tiffanie Avery MD Primary Care Provider Encounter Details Date Type Department Care Team (Late st Contact Info) Description 03/09/2003 Historical Encounter Global Julio Gutierres MD [address] [place] [address] [address] [place] [address] Social History Tobacco Use Types Packs/Day Years [...] 9:30 AM EST Office Visit [facility] [address], [address] [place] [address] Marcos Santana APRN [address] [place] [address],[address] [place] [address] documented as of this encounter Visit Diagnoses Not on filedocumented in this encounter Care Teams Certifier Relationship Specialty Start Date End Date Abhi Ruiz MD PCP - General 12/29/07 10/04/09 Rikki Painter DO [address] [facility] [place] [address] PCP - General Family Medicine 10/05/09 06/12/11 Louie Purdy MD [address] [place] [address] PCP - General Family Medicine 06/13/11 07/05/14 Maricruz Burris, TOWNSHIP SUPERVISOR [address] [place] [address] PCP - General Nurse Practitioner 07/06/14 11/29/14 Otilia Abreu MD PCP - General Family Medicine 11/30/14 04/25/15 Julio Samayoa, YANNICK [address] [place] [address] PCP - General nurse practitioner adult care 04/26/15 01/19/17 Julio Samayoa APRN [address] [place] [id number] PCP - General Family Practice 01/20/17 01/19/18 Tiffanie Avery MD [address] [place] [address] PCP - General Family Medicine 01/20/18 10/28/23 Tiffanie Avery MD [address] [place] [address] PCP - General Family Medicine 12/22/23 Stew Hankins III, MD Gastroenterology 10/25/10 Kirby Kaur MD [address] [place] [address] Family Medicine 12/23/11 Nicholas Cristobal MD [address] [place] [address] Gastroenterology 08/08/14 Charlie Ayala, PA-C [address] [place] [address] Physician Railroad Car Cleaning Supervisor 02/05/15 Sully Castillo LPN 02/22/15 Florin Vicente MD [address] [place] [address] [place] [address] Pulmonary Disease 01/19/18 Sindi Mcfarland MA 09/22/18 Mao Powell MD [address] [place] [address] Orthopedic Surgery 05/22/21 Jeff Douglas MD [address] [address] [address] Orthopedic Surgery 07/18/21 documented as of this encounter
--- OUTSIDE RECORDS SUMMARY | 2024-12-28 10:38 | XMS_ITS | Encounter Summary ---
Author Organization [facility] Address [address] [place] [address] Care Team Providers Care Skate Maker Name Role Phone Abhi Ruiz MD Primary Care Provider Unavailabl Rikki Stone DO Primary Care Provider [phone] Nhi AZUL MD, Morris Wilson Unavailable Haven Louie Pace MD Primary Care Provider Kirby Kaur MD Unavailable [phone] Maricruz Burris APRN Primary Care Provide r Nicholas Cristobal MD Unavailable Doctor, No Primary Care Provider UnavailCharlie Greenberg PA-C Unavailable Sully Castillo LPN Unavailable Unavailable Julio Samayoa APRN Primary Care Provider [phone] Julio Samayoa APRN Primary Care Provider [phone] Florin Vicente MD Unavailable Tiffanie Avery MD Primary Care Provider Sindi Mcfarland MA Unavailable Unavailable Mao Powell MD Unavailable [phone] Jeff Douglas MD Unavailable [phone] Tiffanie Avery MD Primary Care Provider Encounter [...] Upcoming Encounters Date Type Department Care Team ([facility] st Contact Info) Description 06/12/2025 9:30 AM EST Office Visit [facility] [address], [address] [place] [address] Marcos Santana APRN [address] [place] [address],[address] [place], [place] [id number] documented as of this encounter Visit Diagnoses Not on filedocumented in this encounter Care Teams Skate Maker Relationship Specialty Start Date End Date Abhi Ruiz MD PCP - General 12/29/07 10/04/09 Rikki Painter DO [address] [place] [address] PCP - General Family Medicine 10/05/09 06/12/11 Louie Purdy MD [address] [place] [address] PCP - General Family Medicine 06/13/11 07/05/14 Maricruz Burris, DIE ATTACHING MACHINE TENDER [address] [place] [address] PCP - General Nurse Practitioner 07/06/14 11/29/14 Otilia Abreu [place] PCP - General Family Medicine 11/30/14 04/25/15 Julio Samayoa APRN [address] [place] [address] PCP - General nurse practitioner adult care 04/26/15 01/19/17 Julio Samayoa APRN [address] [place] [address] PCP - General Family Practice 01/20/17 01/19/18 Tiffanie Avery MD [address] [place] [address] [place] [address] PCP - General Family Medicine 01/20/18 10/28/23 Tiffanie Avery MD [address] [place] [address] [place] [address] PCP - General Family Medicine 12/22/23 Stew Hankins III, MD Gastroenterology 10/25/10 Kirby Kaur MD [address] [place] [address] [address] Family Medicine 12/23/11 Nicholas Cristobal MD [address] [place] [address] [address] [place] [address] Gastroenterology 08/08/14 Charlie Ayala, PA-C [address] [place] [address] [address] [place] [address] Physician Investor 02/05/15 Sully Castillo LPN 02/22/15 [place] [address] [place] [address] [address] Pulmonary Disease 01/19/18 Sindi Mcfarland MA 09/22/18 Mao Powell MD [address] [place] [address] [address] Orthopedic Surgery 05/22/21 Jeff Douglas MD 613 [address] [address] [place] [address] Orthopedic Surgery 07/18/21 documented as of this encounter
--- OUTSIDE RECORDS SUMMARY | 2024-12-28 10:38 | XMS_ITS | Encounter Summary ---
Author Organization [facility] Address [address] [place] [address] Care Team Providers Care Health Safety Coordinator Name Role Phone Abhi Ruiz MD Primary Care Provider Unavailabl Rikki Stone DO Primary Care Provider [phone] Nhi AZUL MD, Morris Wilson Unavailable Haven Louie Pace MD Primary Care Provider Kirby Kaur MD Unavailable [phone] Maricruz Burris APRN Primary Care Provide r Nicholas Cristobal MD Unavailable Doctor, No Primary Care Provider UnavailCharlie Greenberg PA-C Unavailable [phone] Sully Castillo LPN Unavailable Unavailable Julio Samayoa APRN Primary Care Provider [phone] Julio Samayoa APRN Primary Care Provider [phone] Florin Vicente MD Unavailable Tiffanie Avery MD Primary Care Provider Sindi Mcfarland MA Unavailable Unavailable Mao Powell MD Unavailable [phone] Jeff Douglas MD Unavailable [phone] Tiffanie Avery MD Primary Care Provider Encounter [...] Upcoming Encounters Date Type Department Care Team ([facility] st Contact Info) Description 06/12/2025 9:30 AM EST Office Visit [facility] [address], [address] [place] [address] Marcos Santana APRN [address] [place] [address],[address] [place], [place] [id number] documented as of this encounter Visit Diagnoses Not on filedocumented in this encounter Care Teams Health Safety Coordinator Relationship Specialty Start Date End Date Abhi Ruiz MD PCP - General 12/29/07 10/04/09 Rikki Painter DO [address] [place] [address] PCP - General Family Medicine 10/05/09 06/12/11 Louie Purdy MD [address] [place] [address] PCP - General Family Medicine 06/13/11 07/05/14 Maricruz Burris, SOFTWARE DEVELOPER [address] [place] [address] PCP - General Nurse Practitioner 07/06/14 11/29/14 Otilia Abreu [place], [place] PCP - General Family Medicine 11/30/14 04/25/15 Julio Samayoa APRN [address] [place] [address] PCP - General nurse practitioner adult care 04/26/15 01/19/17 Julio Samayoa APRN [address] [place] [address] PCP - General Family Practice 01/20/17 01/19/18 Tiffanie Avery MD [address] [place] [address] [place] [address] PCP - General Family Medicine 01/20/18 10/28/23 Tiffanie Avery MD [address] [place] [address] [place] [address] PCP - General Family Medicine 12/22/23 Stew Hankins III, MD Gastroenterology 10/25/10 Kirby Kaur MD [address] [place] [address] [address] Family Medicine 12/23/11 Nicholas Cristobal MD [address] [place] [address] [address] [place] [address] Gastroenterology 08/08/14 Charlie Ayala, PA-C [address] [place] [address] [address] [place] [address] Physician Loadmaster 02/05/15 Sully Castillo LPN 02/22/15 [place] [address] [place] [address] [address] Pulmonary Disease 01/19/18 Sindi Mcfarland MA 09/22/18 Mao Powell MD [address] [place] [address] [address] Orthopedic Surgery 05/22/21 Jeff Douglas MD 613 [address] [address] [place] [address] Orthopedic Surgery 07/18/21 documented as of this encounter
--- OUTSIDE RECORDS SUMMARY | 2024-12-28 10:38 | XMS_ITS | Encounter Summary ---
Author Organization [facility] Address [address] [place] [address] Care Team Providers Care Director Instructional Material Name Role Phone Abhi Ruiz MD Primary Care Provider Unavailabl Rikki Stone DO Primary Care Provider [phone] Nhi AZUL MD, Morris Wilson Unavailable Haven Louie Pace MD Primary Care Provider Kirby Kaur MD Unavailable [phone] Maricruz Burris APRN Primary Care Provide r Nicholas Cristobal MD Unavailable Doctor, No Primary Care Provider UnavailCharlie Greenberg PA-C Unavailable Sully Castillo LPN Unavailable Unavailable Julio Samayoa APRN Primary Care Provider [phone] Julio Samayoa APRN Primary Care Provider [phone] Florin Vicente MD Unavailable Tiffanie Avery MD Primary Care Provider [phone] Sindi Mcfarland MA Unavailable Unavailable Mao Powell MD Unavailable [phone] Jeff Douglas MD Unavailable [phone] Tiffanie Avery MD Primary Care Provider Encounter [...] Upcoming Encounters Date Type Department Care Team ([facility] st Contact Info) Description 06/12/2025 9:30 AM EST Office Visit [facility] [address], [address] [place] [address] Marcos Santana APRN [address] [place] [address],[address] [place], [place] [id number] documented as of this encounter Visit Diagnoses Not on filedocumented in this encounter Care Teams Director Instructional Material Relationship Specialty Start Date End Date Abhi Ruiz MD PCP - General 12/29/07 10/04/09 Rikki Painter DO [address] [place] [address] PCP - General Family Medicine 10/05/09 06/12/11 Louie Purdy MD [address] [place] [address] PCP - General Family Medicine 06/13/11 07/05/14 Maricruz Burris, QUALITY IMPROVEMENT COORDINATOR (RN) [address] [place] [address] PCP - General Nurse Practitioner 07/06/14 11/29/14 Otilia Abreu [place] PCP - General Family Medicine 11/30/14 04/25/15 Julio Samayoa APRN [address] [place] [address] PCP - General nurse practitioner adult care 04/26/15 01/19/17 Julio Samayoa APRN [address] [place] [address] PCP - General Family Practice 01/20/17 01/19/18 Tiffanie Avery MD [address] [place] [address] [place] [address] PCP - General Family Medicine 01/20/18 10/28/23 Tiffanie Avery MD [address] [place] [address] [place] [address] PCP - General Family Medicine 12/22/23 Stew Hankins III, MD Gastroenterology 10/25/10 Kirby Kaur MD [address] [place] [address] [address] Family Medicine 12/23/11 Nicholas Cristobal MD [address] [place] [address] [address] [place] [address] Gastroenterology 08/08/14 Charlie Ayala, PA-C [address] [place] [address] [address] [place] [address] Physician Gang Pusher 02/05/15 Sully Castillo LPN 02/22/15 [place] [address] [place] [address] [address] Pulmonary Disease 01/19/18 Sindi Mcfarland MA 09/22/18 Mao Powell MD [address] [place] [address] [address] Orthopedic Surgery 05/22/21 Jeff [place] MD 613 [address] [address] [place] [address] Orthopedic Surgery 07/18/21 documented as of this encounter
--- OUTSIDE RECORDS SUMMARY | 2024-12-28 10:38 | XMS_ITS | Encounter Summary ---
Author Organization [facility] Address [address] [place] [address] Care Team Providers Care Embossing Unit Operator Name Role Phone Abhi Ruiz MD Primary Care Provider Unavailabl Rikki Stone DO Primary Care Provider [phone] Nhi AZUL MD, Morris Wilson Unavailable Haven Louie Pace MD Primary Care Provider Kirby Kaur MD Unavailable [phone] Maricruz Burris APRN Primary Care Provide r Nicholas Cristobal MD Unavailable Doctor, No Primary Care Provider UnavailCharlie Greenberg PA-C Unavailable Sully Castillo LPN Unavailable Unavailable Julio Samayoa APRN Primary Care Provider [phone] Julio Samayoa APRN Primary Care Provider [phone] Florin Vicente MD Unavailable Tiffanie Avery MD Primary Care Provider [phone] Sindi Mcfarland MA Unavailable Unavailable Mao Powell MD Unavailable [phone] Jeff Douglas MD Unavailable [phone] Tiffanie Avery MD Primary Care Provider Encounter [...] Upcoming Encounters Date Type Department Care Team ([facility] st Contact Info) Description 06/12/2025 9:30 AM EST Office Visit [facility] [address], [address] [place] [address] Marcos Santana APRN [address] [place] [address],[address] [place], [place] [id number] documented as of this encounter Visit Diagnoses Not on filedocumented in this encounter Care Teams Embossing Unit Operator Relationship Specialty Start Date End Date Abhi Ruiz MD PCP - General 12/29/07 10/04/09 Rikki Painter DO [address] [place] [address] PCP - General Family Medicine 10/05/09 06/12/11 Louie Purdy MD [address] [place] [address] PCP - General Family Medicine 06/13/11 07/05/14 Maricruz Burris, ANTICHECKING IRON WORKER [address] [place] [address] PCP - General Nurse Practitioner 07/06/14 11/29/14 Otilia Abreu [place] PCP - General Family Medicine 11/30/14 04/25/15 Julio Samayoa APRN [address] [place] [address] PCP - General nurse practitioner adult care 04/26/15 01/19/17 Julio Samayoa APRN [address] [place] [address] PCP - General Family Practice 01/20/17 01/19/18 Tiffanie Avery MD [address] [place] [address] [place] [address] PCP - General Family Medicine 01/20/18 10/28/23 Tiffanie Avery MD [address] [place] [address] [place] [address] PCP - General Family Medicine 12/22/23 Stew Hankins III, MD Gastroenterology 10/25/10 Kirby Kaur MD [address] [place] [address] [address] Family Medicine 12/23/11 Nicholas Cristobal MD [address] [place] [address] [address] [place] [address] Gastroenterology 08/08/14 Charlie Ayala, PA-C [address] [place] [address] [address] [place] [address] Physician News Librarian 02/05/15 Sully Castillo LPN 02/22/15 [place] [address] [place] [address] [address] Pulmonary Disease 01/19/18 Sindi Mcfarland MA 09/22/18 Mao Powell MD [address] [place] [address] [address] Orthopedic Surgery 05/22/21 Jeff Douglas MD 613 [address] [address] [place] [address] Orthopedic Surgery 07/18/21 documented as of this encounter
--- OUTSIDE RECORDS SUMMARY | 2024-12-28 10:38 | XMS_ITS | Encounter Summary ---
Author Organization [facility] Address [address] [place] [address] Care Team Providers Care Floor Cleaner Name Role Phone Nhi AZUL MD, Morris Wilson Unavailable Haven lisailaKirby Woods MD Unavailable Nicholas Cristobal MD Unavailable Charlie Ayala PA-C Unavailable Sully Castillo LPN Unavailable Unavailable Florin Vicente MD Unavailable Tiffanie Avery MD Primary Care Provider [phone] Sindi Mcfarland MA Unavailable Unavailable Mao Powell MD Unavailable Jeff Douglas MD Unavailable Tiffanie Avery MD Primary Care Provider [phone] Encounter Details Date Type Department Care Team (Late st Contact Info) Description 07/12/2021 Orders Only Lab [address] [place] [address] Jessie Ogden, NURSING CLINICAL DIRECTOR [address] [place] [address] Pre-operative laboratory examination (Primary Dx) Social History [...] Description 06/12/2025 9:30 AM EST Office Visit [facility] [address], [address] [place] [address] Marcos Santana, YANNICK [address] [place] [address],[address] [place], [place] [id number] documented as of this encounter Results * SARS-CoV-2, QL, PCR (Routine/Outpatient) (07/26/2021 2:06 PM EST) SARS-CoV-2 RNA Undetected 07/26/2021 6:46 PM EST [facility] Comment: Testing was performed using the [employer] Direct. Fact sheets for this Emergency Use Authorization (EUA) assay can be found at the following links: For Healthcare Providers: https://www.fda.gov/media/935539/download For Patients: https://www.fda.gov/media/723826/download Test Performed by: [facility],[address] [place] [address], Equipment Operat0R: Ashley Gonzalez D.O.; CLIA#: [id number] Throat (Throat) 07/26/2021 2 :06 PM EST 07/26/2021 4:17 PM EST Narrative [facility] - 07/26/2021 6:46 PM EST Symptomatic?->No Indications (select all that apply)->Pre-op/ planned procedure Was specimen collected by a [facility] field marketing team leader?->Yes NO KNOWN ALLERGIES us Jessie Ogden NURSING CLINICAL DIRECTOR MICROBIOLOGY - GENERAL ORDER ANTHONY Final Result [facility] [address] [place] [address] [place] [address], [place] [address] documented in this encounter Visit Diagnoses Diagnosis Pre-operative laboratory examination- Primary Pre-procedural laboratory examination documented in this encounter Additional Health Concerns Assessment Noted Time PHQ-9 Depression Total Score: 0 04/01/20 19 2:31 PM EST documented as of this encounter Care Teams Floor Cleaner Relationship Specialty Start Date End Date Tiffanie Avery MD [address] [place] [address] PCP - General Family Medicine 01/20/18 10/28/23 Tiffanie Avery MD [address] [place] [address] PCP - General Family Medicine 12/22/23 Stew Hankins III, MD Gastroenterology 10/25/10 Kirby Kaur MD [address] [place] [address] Family Medicine 12/23/11 Nicholas Cristobal MD [address] [place] [address] Gastroenterology 08/08/14 Charlie Ayala, TORIC [address] [place] [address] Physician Rinkman 02/05/15 Sully Castillo LPN 02/22/15 Florin Vicente MD [address] [facility] [place] [address] Pulmonary Disease 01/19/18 Sindi Mcfarland MA 09/22/18 Mao Powell MD [address] [place] [address] [place] [address] Orthopedic Surgery 05/22/21 Jeff Douglas MD [address] [place] [address] Orthopedic Surgery 07/18/21 documented as of this encounter
--- OUTSIDE RECORDS SUMMARY | 2024-12-28 10:38 | XMS_ITS | Encounter Summary ---
Author Organization [facility] Address [address] [place] [address] Care Team Providers Care Seed Laboratory Assistant Name Role Phone Nhi AZUL MD, Morris Wilson Unavailable Haven lisailaKirby Woods MD Unavailable Nicholas Cristobal MD Unavailable Charlie Ayala PA-C Unavailable Sully Castillo LPN Unavailable Unavailable Florin Vicente MD Unavailable Tiffanie Avery MD Primary Care Provider [phone] Sindi Mcfarland MA Unavailable Unavailable Mao Powell MD Unavailable [phone] Jeff Douglas MD Unavailable [phone] Tiffanie Avery MD Primary Care Provider [phone] Encounter Details Date Type Department Care Team (Late st Contact Info) Description 11/15/2020 Telephone [facility] [address], [address] [place] [address] Chago Ventura Social History Tobacco [...] Office Visit [facility] [address] [place] [address] Marcos Santana APRN [address] [place], [place] [address] [place] [address] documented as of this encounter Visit Diagnoses Not on filedocumented in this encounter Additional Health Concerns Assessment Noted Time PHQ-9 Depression Total Score: 0 04/01/20 19 2:31 PM EST documented as of this encounter Care Teams Seed Laboratory Assistant Relationship Specialty Start Date End Date Tiffanie Avery MD [address] [place] [address] PCP - General Family Medicine 01/20/18 10/28/23 Tiffanie Avery MD [address] [place] [address] PCP - General Family Medicine 12/22/23 Stew Hankins III, MD Gastroenterology 10/25/10 Kirby Kaur MD [address] [place] [address] [place] [address] Family Medicine 12/23/11 Nicholas Cristobal MD [address] [place] [address] Gastroenterology 08/08/14 Charlie Ayala, TORIC [address] [place] [address] Physician Piping Engineer 02/05/15 Sully Castillo LPN 02/22/15 [place] [address] [place] [address] [place] [address] Pulmonary Disease 01/19/18 Sindi Mcfarland MA 09/22/18 Mao Powell MD [address] [place] [address] [place] [address] Orthopedic Surgery 05/22/21 Jeff Douglas MD [address] [place] [address] Orthopedic Surgery 07/18/21 documented as of this encounter
--- OUTSIDE RECORDS SUMMARY | 2024-12-28 10:38 | XMS_ITS | Encounter Summary ---
Author Organization [facility] Address [address] [place] [address] Care Team Providers Care Auction Assistant Name Role Phone Abhi Ruiz MD Primary Care Provider Unavailabl Rikki Stone DO Primary Care Provider [phone] Nhi AZUL MD, Morris Wilson Unavailable Haven Louie Pace MD Primary Care Provider Kirby Kaur MD Unavailable [phone] Maricruz Burris APRN Primary Care Provide r Nicholas Cristobal MD Unavailable Doctor, No Primary Care Provider UnavailCharlie Greenberg PA-C Unavailable Sully Castillo LPN Unavailable Unavailable Julio Samayoa APRN Primary Care Provider [phone] Julio Samayoa APRN Primary Care Provider [phone] Florin Vicente MD Unavailable Tiffanie Avery MD Primary Care Provider Sindi Mcfarland MA Unavailable Unavailable Mao Powell MD Unavailable [phone] Jeff Douglas MD Unavailable [phone] Tiffanie Avery MD Primary Care Provider [phone] Encounter Details Date Type Department Care Team [...] Upcoming Encounters Date Type Department Care Team ([facility] st Contact Info) Description 06/12/2025 9:30 AM EST Office Visit [facility] [address], [address] [place] [address] Marcos Santana APRN [address] [place] [address],[address] [place], [place] [address] documented as of this encounter Visit Diagnoses Not on filedocumented in this encounter Care Teams Auction Assistant Relationship Specialty Start Date End Date Abhi Ruiz MD PCP - General 12/29/07 10/04/09 Rikki Painter DO [address] [place] [address] PCP - General Family Medicine 10/05/09 06/12/11 Louie Purdy MD [address] [place] [address] PCP - General Family Medicine 06/13/11 07/05/14 Maricruz Burris, KNUCKLE BENDER [address] [place] [address] PCP - General Nurse Practitioner 07/06/14 11/29/14 Otilia Abreu [place], [place] PCP - General Family Medicine 11/30/14 04/25/15 Julio Samayoa APRN [address] [place] [address] PCP - General nurse practitioner adult care 04/26/15 01/19/17 Julio Samayoa APRN [address] [place] [address] PCP - General Family Practice 01/20/17 01/19/18 Tiffanie Avery MD [address] [place] [address] [place] [address] PCP - General Family Medicine 01/20/18 10/28/23 Tiffanie Avery MD [address] [place] [address] [place] [address] PCP - General Family Medicine 12/22/23 Stew Hankins III, MD Gastroenterology 10/25/10 Kirby Kaur MD [address] [place] [address] [address] Family Medicine 12/23/11 Nicholas Cristobal MD [address] [place] [address] [address] [place] [address] Gastroenterology 08/08/14 Charlie Ayala, PA-C [address] [place] [address] [address] [place] [address] Physician Ammonia Refrigeration Worker 02/05/15 Sully Castillo LPN 02/22/15 [place] [address] [place] [address] [address] Pulmonary Disease 01/19/18 Sindi Mcfarland MA 09/22/18 Mao Powell MD [address] [place] [address] [address] Orthopedic Surgery 05/22/21 Jeff Douglas MD 613 [address] [address] [place] [address] Orthopedic Surgery 07/18/21 documented as of this encounter
--- OUTSIDE RECORDS SUMMARY | 2024-12-28 10:38 | XMS_ITS | Encounter Summary ---
Author Organization [facility] Address [address] [place] [address] Care Team Providers Care Camp Assistant Name Role Phone Nhi AZUL MD, Morris Wilson Unavailable Haven Louie Pace MD Primary Care Provider [phone] Kirby Kaur MD Unavailable [phone] Maricruz Burris APRN Primary Care Provide r Nicholas Cristobal MD Unavailable Doctor, No Primary Care Provider UnavailCharlie Greenberg PA-C Unavailable [phone] Sully Castillo LPN Unavailable Unavailable Julio Samayoa APRN Primary Care Provider [phone] Julio Samayoa APRN Primary Care Provider [phone] Florin Vicente MD Unavailable Tiffanie Avery MD Primary Care Provider [phone] Sindi Mcfarland MA Unavailable Unavailable Mao Powell MD Unavailable [phone] Jeff Douglsa MD Unavailable [phone] Tiffanie Avery MD Primary Care Provider [phone] Encounter Details Date Type Department Care Team (Late st Contact Info) Description 11/07/2013 Telephone [facility] [address] [place] [address] Remedios Yousif, RN Social History Tobacco Use [...] 9:30 AM EST Office Visit [facility] [address], [address] [place] [address] Marcos Santana APRN [address] [place] [address],[address] [place] [address] documented as of this encounter Visit Diagnoses Not on filedocumented in this encounter Care Teams Camp Assistant Relationship Specialty Start Date End Date Louie Purdy MD [address] [place] [address] PCP - General Family Medicine 06/13/11 07/05/14 Maricruz Burris APRN [address] [place] [address] PCP - General Nurse Practitioner 07/06/14 11/29/14 Otilia Abreu [place] PCP - General Family Medicine 11/30/14 04/25/15 Julio Samayoa APRN [address] [place] [address] PCP - General nurse practitioner adult care 04/26/15 01/19/17 Julio Samayoa APRN [address] [place] [address] PCP - General Family Practice 01/20/17 01/19/18 Tiffanie Avery MD [address] [place] [address] [place] [address] PCP - General Family Medicine 01/20/18 10/28/23 Tiffanie Avery MD [address] [place] [address] [place] [address] PCP - General Family Medicine 12/22/23 Stew Hankins III, MD Gastroenterology 10/25/10 Kirby Kaur MD [address] [place] [address] [place] [address] Family Medicine 12/23/11 Nicholas Cristobal MD [address] [place] [address] [address] [facility] [place] [address] Gastroenterology 08/08/14 Charlie Ayala PA-C [address] [place] [address] [address] [facility] [place] [address] Physician Break Out Man 02/05/15 Sully Castillo LPN 02/22/15 Florin Vicente MD [address] [facility] [address] [address] Pulmonary Disease 01/19/18 Sindi Mcfarland MA 09/22/18 Mao Powell MD [address] [place] [address] [id number] Orthopedic Surgery 05/22/21 Jeff Douglas MD [address] [place] [address] [address] Orthopedic Surgery 07/18/21 documented as of this encounter
--- OUTSIDE RECORDS SUMMARY | 2024-12-28 10:38 | XMS_ITS | Encounter Summary ---
Author Organization [facility] Address [address] [place] [address] Care Team Providers Care Absorption Plant Operator Helper Name Role Phone Abhi Ruiz MD Primary Care Provider Unavailabl Rikki Stone DO Primary Care Provider [phone] Nhi AZUL MD, Morris Wilson Unavailable Haven Louie Pace MD Primary Care Provider Kirby Kaur MD Unavailable [phone] Maricruz Burris APRN Primary Care Provide r Nicholas Cristobal MD Unavailable Doctor, No Primary Care Provider UnavailCharlie Greenberg PA-C Unavailable Sully Castillo LPN Unavailable Unavailable Julio Samayoa APRN Primary Care Provider [phone] Julio Samayoa APRN Primary Care Provider [phone] Florin Vicente MD Unavailable Tiffanie Avery MD Primary Care Provider Sindi Mcfarland MA Unavailable Unavailable Mao Powell MD Unavailable [phone] Jeff Douglas MD Unavailable [phone] Tiffanie Avery MD Primary Care Provider [phone] Encounter Details Date Type Department Care Team [...] 9:30 AM EST Office Visit [facility] [address], [address] [place] [address] Marcos Santana APRN [address] [place] [address],[address] [place] [address] documented as of this encounter Visit Diagnoses Not on filedocumented in this encounter Care Teams Absorption Plant Operator Helper Relationship Specialty Start Date End Date Abhi Ruiz MD PCP - General 12/29/07 10/04/09 Rikki Painter DO [address] [place] [address] PCP - General Family Medicine 10/05/09 06/12/11 Louie Purdy MD [address] [place] [address] PCP - General Family Medicine 06/13/11 07/05/14 Maricruz Burris APRN [address] [place] [address] PCP - General Nurse Practitioner 07/06/14 11/29/14 Otilia Abreu [place] PCP - General Family Medicine 11/30/14 04/25/15 Julio Samayoa APRN [address] [place] [address] PCP - General nurse practitioner adult care 04/26/15 01/19/17 Julio Samayoa APRN [address] [facility] [address] PCP - General Family Practice 01/20/17 01/19/18 Tiffanie Avery MD [address] [place] [address] [place] [address] PCP - General Family Medicine 01/20/18 10/28/23 Tiffanie Avery MD [address] [place] [address] PCP - General Family Medicine 12/22/23 Stew Hankins III, MD Gastroenterology 10/25/10 Kirby Kaur MD [address] [place] [address] Family Medicine 12/23/11 Nicholas Cristobal MD [address] [place] [address] [address] [place] [address] Gastroenterology 08/08/14 Charlie Ayala, PA-C [address] [place] [address] [address] [place] [address] Physician Casino Cage Manager 02/05/15 Sully Castillo LPN 02/22/15 [place] [address] [place] [address] [address] Pulmonary Disease 01/19/18 Sindi Mcfarland MA 09/22/18 Mao Powell MD [address] [place] [address] [address] Orthopedic Surgery 05/22/21 Jeff Douglas MD [address] [address] [place] [id number] Orthopedic Surgery 07/18/21 documented as of this encounter
--- OUTSIDE RECORDS SUMMARY | 2024-12-28 10:38 | XMS_ITS | Encounter Summary ---
Author Organization [facility] Address [address] [place] [address] Care Team Providers Care Consumer Insight Analyst Name Role Phone Abhi Ruiz MD Primary Care Provider Unavailabl Rikki Stone DO Primary Care Provider [phone] Nhi AZUL MD, Morris Wilson Unavailable Haven Louie Pace MD Primary Care Provider Kirby Kaur MD Unavailable [phone] Maricruz Burris APRN Primary Care Provide r Nicholas Cristobal MD Unavailable Doctor, No Primary Care Provider UnavailCharlie Greenberg PA-C Unavailable Sully Castillo LPN Unavailable Unavailable Julio Samayoa APRN Primary Care Provider [phone] Julio Samayoa APRN Primary Care Provider [phone] Florin Vicente MD Unavailable Tiffanie Avery MD Primary Care Provider [phone] Sindi Mcfarland MA Unavailable Unavailable Mao Powell MD Unavailable [phone] Jeff Douglas MD Unavailable [phone] Tiffanie Avery MD Primary Care Provider [phone] Encounter Details Date Type Department Care Team [...] Upcoming Encounters Date Type Department Care Team ([facility] st Contact Info) Description 06/12/2025 9:30 AM EST Office Visit [facility] [address], [address] [place] [address] Marcos Santana APRN [address] [place] [address],[address] [place], [place] [address] documented as of this encounter Visit Diagnoses Not on filedocumented in this encounter Care Teams Consumer Insight Analyst Relationship Specialty Start Date End Date Abhi Ruiz MD PCP - General 12/29/07 10/04/09 Rikki Painter DO [address] [place] [address] PCP - General Family Medicine 10/05/09 06/12/11 Louie Purdy MD [address] [place] [address] PCP - General Family Medicine 06/13/11 07/05/14 Maricruz Burris, EGG FACTORY WORKER [address] [place] [address] PCP - General Nurse Practitioner 07/06/14 11/29/14 Otilia Abreu [place] PCP - General Family Medicine 11/30/14 04/25/15 Julio Samayoa APRN [address] [place] [address] PCP - General nurse practitioner adult care 04/26/15 01/19/17 Julio Samayoa APRN [address] [place] [address] PCP - General Family Practice 01/20/17 01/19/18 Tiffanie Avery MD [address] [place] [address] [place] [address] PCP - General Family Medicine 01/20/18 10/28/23 Tiffanie Avery MD [address] [place] [address] [place] [address] PCP - General Family Medicine 12/22/23 Stew Hankins III, MD Gastroenterology 10/25/10 Kirby Kaur MD [address] [place] [address] [address] Family Medicine 12/23/11 Nicholas Cristobal MD [address] [place] [address] [address] [place] [address] Gastroenterology 08/08/14 Charlie Ayala, PA-C [address] [place] [address] [address] [place] [address] Physician Armored Cable Machine Operator 02/05/15 Sully Castillo LPN 02/22/15 [place] [address] [place] [address] [address] Pulmonary Disease 01/19/18 Sindi Mcfarland MA 09/22/18 Mao Powell MD [address] [place] [address] [address] Orthopedic Surgery 05/22/21 Jeff Douglas MD 613 [address] [address] [place] [address] Orthopedic Surgery 07/18/21 documented as of this encounter
--- OUTSIDE RECORDS SUMMARY | 2024-12-28 10:38 | XMS_ITS | Encounter Summary ---
Author Organization [facility] Address [address] [place] [address] Care Team Providers Care Ic Design Manager Name Role Phone Abhi Ruiz MD Primary Care Provider Unavailabl Rikki Stone DO Primary Care Provider [phone] Nhi AZUL MD, Morris Wilson Unavailable Haven Louie Pace MD Primary Care Provider Kirby Kaur MD Unavailable [phone] Maricruz Burris APRN Primary Care Provide r Nicholas Cristobal MD Unavailable Doctor, No Primary Care Provider UnavailCharlie Greenberg PA-C Unavailable Sully Castillo LPN Unavailable Unavailable Julio Samayoa APRN Primary Care Provider [phone] Julio Samayoa APRN Primary Care Provider [phone] Florin Vicente MD Unavailable Tiffanie Avery MD Primary Care Provider Sindi Mcfarland MA Unavailable Unavailable Mao Powell MD Unavailable [phone] Jeff Douglas MD Unavailable [phone] Tiffanie Avery MD Primary Care Provider [phone] Encounter Details Date Type Department Care Team [...] Upcoming Encounters Date Type Department Care Team ([facility] st Contact Info) Description 06/12/2025 9:30 AM EST Office Visit [facility] [address], [address] [place] [address] Marcos Santana APRN [address] [place] [address],[address] [place], [place] [address] documented as of this encounter Visit Diagnoses Not on filedocumented in this encounter Care Teams Ic Design Manager Relationship Specialty Start Date End Date Abhi Ruiz MD PCP - General 12/29/07 10/04/09 Rikki Painter DO [address] [place] [address] PCP - General Family Medicine 10/05/09 06/12/11 Louie Purdy MD [address] [place] [address] PCP - General Family Medicine 06/13/11 07/05/14 Maricruz Burris, [employer] [address] [place] [address] PCP - General Nurse Practitioner 07/06/14 11/29/14 Otilia Abreu [place] PCP - General Family Medicine 11/30/14 04/25/15 Julio Samayoa APRN [address] [place] [address] PCP - General nurse practitioner adult care 04/26/15 01/19/17 Julio Samayoa APRN [address] [place] [address] PCP - General Family Practice 01/20/17 01/19/18 Tiffanie Avery MD [address] [place] [address] [place] [address] PCP - General Family Medicine 01/20/18 10/28/23 Tiffanie Avery MD [address] [place] [address] [place] [address] PCP - General Family Medicine 12/22/23 Stew Hankins III, MD Gastroenterology 10/25/10 Kirby Kaur MD [address] [place] [address] [address] Family Medicine 12/23/11 Nicholas Cristobal MD [address] [place] [address] [address] [place] [address] Gastroenterology 08/08/14 Charlie Ayala, PA-C [address] [place] [address] [address] [place] [address] Physician Spray Gun Sizer 02/05/15 Sully Castillo LPN 02/22/15 [place] [address] [place] [address] [address] Pulmonary Disease 01/19/18 Sindi Mcfarland MA 09/22/18 Mao Powell MD [address] [place] [address] [address] Orthopedic Surgery 05/22/21 Jeff Douglas MD 613 [address] [address] [place] [address] Orthopedic Surgery 07/18/21 documented as of this encounter
--- OUTSIDE RECORDS SUMMARY | 2024-12-28 10:38 | XMS_ITS | Encounter Summary ---
Author Organization [facility] Address [address] [place] [address] Care Team Providers Care Cabinet Maker Name Role Phone Abhi Ruiz MD Primary Care Provider Unavailabl Rikki Stone DO Primary Care Provider [phone] Nhi AZUL MD, Morris Wilson Unavailable Haven Louie Pace MD Primary Care Provider Kirby Kaur MD Unavailable [phone] Maricruz Burris APRN Primary Care Provide r Nicholas Cristobal MD Unavailable Doctor, No Primary Care Provider UnavailCharlie Greenberg-Lobito Unavailable Sully Castillo LPN Unavailable Unavailable Julio Samayoa APRN Primary Care Provider [phone] Julio Samayoa APRN Primary Care Provider [phone] Florin Vicente MD Unavailable Tiffanie Avery MD Primary Care Provider Sindi Mcfarland MA Unavailable Unavailable Mao Powell MD Unavailable [phone] Jeff Douglas MD Unavailable [phone] Tiffanie Avery MD Primary Care Provider Encounter Details Date Type Department Care Team (Late st Contact Info) Description 04/13/2003 Historical Encounter Global Julio Gutierres MD [address] [place] [address] [address] [place] [address] Social History Tobacco Use Types Packs/Day Years [...] AM EST Office Visit [facility] [address], [address] [place] [address] Marcos Santana APRN [address] [place] [address],[address] [place] [address] documented as of this encounter Visit Diagnoses Not on filedocumented in this encounter Care Teams Cabinet Maker Relationship Specialty Start Date End Date Abhi Ruiz MD PCP - General 12/29/07 10/04/09 Rikki Painter DO [address] [facility] [place] [address] PCP - General Family Medicine 10/05/09 06/12/11 Louie Purdy MD [address] [place] [address] PCP - General Family Medicine 06/13/11 07/05/14 Maricruz Burris, DATA ENTRY [address] [place] [address] PCP - General Nurse Practitioner 07/06/14 11/29/14 Otilia Abreu [place] PCP - General Family Medicine 11/30/14 04/25/15 Julio Samayoa, YANNICK [address] [place] [address] PCP - General nurse practitioner adult care 04/26/15 01/19/17 Julio Samayoa APRN [address] [place] [id number] PCP - General Family Practice 01/20/17 01/19/18 Tiffanie Avery MD [address] [place] [address] PCP - General Family Medicine 01/20/18 10/28/23 Tiffanie Avery MD [address] [place] [address] PCP - General Family Medicine 12/22/23 Stew Hankins III, MD Gastroenterology 10/25/10 Kirby Kaur MD [address] [place] [address] Family Medicine 12/23/11 Nicholas Cristobal MD [address] [place] [address] Gastroenterology 08/08/14 Charlie Ayala, PA-C [address] [place] [address] Physician Label Operator 02/05/15 Sully Castillo LPN 02/22/15 Florin Vicente MD [address] [place] [address] [place] [address] Pulmonary Disease 01/19/18 Sindi Mcfarland MA 09/22/18 Mao Powell MD [address] [place] [address] Orthopedic Surgery 05/22/21 Jeff Douglas MD [address] [address] [address] Orthopedic Surgery 07/18/21 documented as of this encounter
--- OUTSIDE RECORDS SUMMARY | 2024-12-28 10:38 | XMS_ITS | Encounter Summary ---
Author Organization [facility] Address [address] [place] [address] Care Team Providers Care Negotiator Name Role Phone Abhi Ruiz MD Primary Care Provider Unavailabl Rikki Stone DO Primary Care Provider [phone] Nhi AZUL MD, Morris Wilson Unavailable Haven Louie Pace MD Primary Care Provider [phone] Kirby Kaur MD Unavailable [phone] Maricruz Burris APRN Primary Care Provide r Nicholas Cristobal MD Unavailable Doctor, No Primary Care Provider UnavailCharlie Greenberg PA-C Unavailable Sully Castillo LPN Unavailable Unavailable Julio Samayoa APRN Primary Care Provider [phone] Julio Samayoa APRN Primary Care Provider [phone] Florin Vicente MD Unavailable Tiffanie Avery MD Primary Care Provider Sindi Mcfarland MA Unavailable Unavailable Mao Powell MD Unavailable [phone] Jeff Douglas MD Unavailable [phone] Tiffanie Avery MD Primary Care Provider [phone] Encounter Details Date Type Department Care Team (Late st Contact Info) Description 02/17/2003 Historical Encounter Global Sima Medley APRN [address] [facility] [address] [place] [address] Social History Tobacco Use Types Packs/Day Years [...] 9:30 AM EST Office Visit [facility] [address], [address] [place] [address] Marcos Santana, AUDIO VISUAL TECHNICIAN [address] [place] [address],[address] [place] [address] documented as of this encounter Visit Diagnoses Not on filedocumented in this encounter Care Teams Negotiator Relationship Specialty Start Date End Date Abhi Ruiz MD PCP - General 12/29/07 10/04/09 Rikki Painter DO [address] [facility] [place] [address] PCP - General Family Medicine 10/05/09 06/12/11 Louie Purdy MD [address] [place] [address] PCP - General Family Medicine 06/13/11 07/05/14 Maricruz Burris, AUDIO VISUAL TECHNICIAN [address] [facility] [place] [address] PCP - General Nurse Practitioner 07/06/14 11/29/14 Otilia Abreu [place] PCP - General Family Medicine 11/30/14 04/25/15 Julio Samayoa, AUDIO VISUAL TECHNICIAN [address] [facility] [place] [address] PCP - General nurse practitioner adult care 04/26/15 01/19/17 Julio Samayoa APRN [address] [place] [address] PCP - General Family Practice 01/20/17 01/19/18 Tiffanie Avery MD [address] [place] [address] PCP - General Family Medicine 01/20/18 10/28/23 Tiffanie Avery MD [address] [place] [address] PCP - General Family Medicine 12/22/23 Stew Hankins III, MD Gastroenterology 10/25/10 Kirby Kaur MD [address] [place] [address] Family Medicine 12/23/11 Nicholas Cristobal MD [address] [place] [address] Gastroenterology 08/08/14 Charlie Ayala, PA-C [address] [place] [address] Physician Brim Pouncer Machine Operator 02/05/15 Sully Castillo LPN 02/22/15 Florin Vicente MD [address] [place] [address] [place] [address] Pulmonary Disease 01/19/18 Sindi Mcfarland MA 09/22/18 Mao Powell MD [address] [place] [address] Orthopedic Surgery 05/22/21 Jeff Douglas MD [address] [place] [address] Orthopedic Surgery 07/18/21 documented as of this encounter
--- OUTSIDE RECORDS SUMMARY | 2024-12-28 10:38 | XMS_ITS | Encounter Summary ---
Author Organization [facility] Address [address] [place] [address] Care Team Providers Care Embedded Software Test Engineer Name Role Phone Abhi Ruiz MD Primary Care Provider Unavailabl Rikki Stone DO Primary Care Provider [phone] Nhi AZUL MD, Morris Wilson Unavailable Haven Louie Pace MD Primary Care Provider Kirby Kaur MD Unavailable [phone] Maricruz Burris APRN Primary Care Provide r Nicholas Cristobal MD Unavailable Doctor, No Primary Care Provider UnavailCharlie Greenberg PA-C Unavailable Sully Castillo LPN Unavailable Unavailable Julio Samayoa APRN Primary Care Provider [phone] Julio Samayoa APRN Primary Care Provider [phone] Florin Vicente MD Unavailable Tiffanie Avery MD Primary Care Provider Sindi Mcfarland MA Unavailable Unavailable Mao Powell MD Unavailable [phone] Jeff Douglas MD Unavailable [phone] Tiffanie Avery MD Primary Care Provider Encounter [...] Upcoming Encounters Date Type Department Care Team ([facility] st Contact Info) Description 06/12/2025 9:30 AM EST Office Visit [facility] [address], [address] [place] [address] Marcos Santana APRN [address] [place] [address],[address] [place], [place] [address] documented as of this encounter Visit Diagnoses Not on filedocumented in this encounter Care Teams Embedded Software Test Engineer Relationship Specialty Start Date End Date Abhi Ruiz MD PCP - General 12/29/07 10/04/09 Rikki Painter DO [address] [place] [address] PCP - General Family Medicine 10/05/09 06/12/11 Louie Purdy MD [address] [place] [address] PCP - General Family Medicine 06/13/11 07/05/14 Maricruz Burris, CRYOGENIC TRANSPORT DRIVER [address] [place] [address] PCP - General Nurse Practitioner 07/06/14 11/29/14 Otilia Abreu [place] PCP - General Family Medicine 11/30/14 04/25/15 Julio Samayoa APRN [address] [place] [address] PCP - General nurse practitioner adult care 04/26/15 01/19/17 Julio Samayoa APRN [address] [place] [address] PCP - General Family Practice 01/20/17 01/19/18 Tiffanie Avery MD [address] [place] [address] [place] [address] PCP - General Family Medicine 01/20/18 10/28/23 Tiffanie Avery MD [address] [place] [address] [place] [address] PCP - General Family Medicine 12/22/23 Stew Hankins III, MD Gastroenterology 10/25/10 Kirby Kaur MD [address] [place] [address] [address] Family Medicine 12/23/11 Nicholas Cristobal MD [address] [place] [address] [address] [place] [address] Gastroenterology 08/08/14 Charlie Ayala, PA-C [address] [place] [address] [address] [place] [address] Physician Farm Tractor Operator 02/05/15 Sully Castillo LPN 02/22/15 [place] [address] [place] [place] [address] [address] Pulmonary Disease 01/19/18 Sindi Mcfarland MA 09/22/18 Mao Powell MD [address] [place] [address] [address] Orthopedic Surgery 05/22/21 Jeff Douglas MD 613 [address] [address] [place] [address] Orthopedic Surgery 07/18/21 documented as of this encounter
--- OUTSIDE RECORDS SUMMARY | 2024-12-28 10:38 | XMS_ITS | Encounter Summary ---
Author Organization [facility] Address [address] [place] [address] Care Team Providers Care Gun Tester Name Role Phone Abhi Ruiz MD Primary Care Provider Unavailabl Rikki Stone DO Primary Care Provider [phone] Nhi AZUL MD, Morris Wilson Unavailable Haven Louie Pace MD Primary Care Provider Kirby Kaur MD Unavailable [phone] Maricruz Burris APRN Primary Care Provide r Nicholas Cristobal MD Unavailable Doctor, No Primary Care Provider UnavailCharlie Greenberg PA-C Unavailable Sully Castillo LPN Unavailable Unavailable Julio Samayoa APRN Primary Care Provider [phone] Julio Samayoa APRN Primary Care Provider [phone] Florin Vicente MD Unavailable Tiffanie Avery MD Primary Care Provider Sindi Mcfarland MA Unavailable Unavailable Mao Powell MD Unavailable [phone] Jeff Douglas MD Unavailable [phone] Tiffanie Avery MD Primary Care Provider Encounter [...] Encounters Date Type Department Care Team ([facility] st Contact Info) Description 06/12/2025 9:30 AM EST Office Visit [facility] [address], [address] [place] [address] Marcos Santana APRN [address] [place] [address],[address] [place] [address] documented as of this encounter Visit Diagnoses Not on filedocumented in this encounter Care Teams Gun Tester Relationship Specialty Start Date End Date Abhi Ruiz MD PCP - General 12/29/07 10/04/09 Rikki Painter DO [address] [place] [address] PCP - General Family Medicine 10/05/09 06/12/11 Louie Purdy MD [address] [place] [address] PCP - General Family Medicine 06/13/11 07/05/14 Maricruz Burris APRN [address] [place] [address] PCP - General Nurse Practitioner 07/06/14 11/29/14 Otilia Abreu [place] PCP - General Family Medicine 11/30/14 04/25/15 Julio Samayoa APRN [address] [place] [address] PCP - General nurse practitioner adult care 04/26/15 01/19/17 Julio Samayoa APRN [address] [place] [address] PCP - General Family Practice 01/20/17 01/19/18 Tiffanie Avery MD [address] [place] [address] [place] [address] PCP - General Family Medicine 01/20/18 10/28/23 Tiffanie Avery MD [address] [place] [address] PCP - General Family Medicine 12/22/23 Stew Hankins III, MD Gastroenterology 10/25/10 Kirby Kuar MD [address] [place] [address] Family Medicine 12/23/11 Nicholas Cristobal MD [address] [place] [address] [address] [place] [address] Gastroenterology 08/08/14 Charlie Ayala, PA-C [address] [place] [address] [address] [place] [address] Physician Superintendent Refuse Disposal 02/05/15 Sully Castillo LPN 02/22/15 [place] [address] [place] [address] [address] Pulmonary Disease 01/19/18 Sindi Mcfarland MA 09/22/18 Mao Powell MD [address] [place] [address] [address] Orthopedic Surgery 05/22/21 Jeff Douglas MD 613 [address] [address] [place] [address] Orthopedic Surgery 07/18/21 documented as of this encounter
--- OUTSIDE RECORDS SUMMARY | 2024-12-28 10:38 | XMS_ITS | Encounter Summary ---
Author Organization [facility] Address [address] [place] [address] Care Team Providers Care Journalists And Other Writers Name Role Phone Nhi AZUL MD, Morris Wilson Unavailable Haven lisailable Kirby Kaur MD Unavailable [phone] Nicholas Cristobal MD Unavailable Charlie Ayala PA-C Unavailable [phone] Sully Castillo LPN Unavailable Unavailable Florin Vicente MD Unavailable Tiffanie Avery MD Primary Care Provider [phone] Sindi Mcfarland MA Unavailable Unavailable Mao Powell MD Unavailable [phone] Jeff Douglas MD Unavailable [phone] Tiffnaie Avery MD Primary Care Provider [phone] Reason for Visit * Reason Onset Date Comments Other 07/19/2021 new medication Encounter Details Date Type Department Care Team (Late st Contact Info) Description 07/19/2021 Telephone [facility] [address] [place] [address] [place] [address] Tiffanie Avery MD [address] [place] [address] Other (new medication) Social History Tobacco [...] 9:30 AM EST Office Visit [facility] [address], [address] [place] [address] Marcos Santana, YANNICK [address] [place] [address],[address] [place] [address] documented as of this encounter Visit Diagnoses Not on filedocumented in this encounter Additional Health Concerns Assessment Noted Time PHQ-9 Depression Total Score: 0 04/01/20 19 2:31 PM EST documented as of this encounter Care Teams Journalists And Other Writers Relationship Specialty Start Date End Date Tiffanie Avery MD [address] [place] [id number] PCP - General Family Medicine 01/20/18 10/28/23 Tiffanie Avery MD [address] [place] [address] PCP - General Family Medicine 12/22/23 Stew Hankins III, MD Gastroenterology 10/25/10 Kirby Kaur MD [address] [place] [address] Family Medicine 12/23/11 Nicholas Cristobal MD [address] [place] [address] Gastroenterology 08/08/14 Charlie Ayala, TORIC [address] [place] [address] Physician Marine Insulator 02/05/15 Sully Castillo LPN 02/22/15 [place] [address] [place] [address] [address] Pulmonary Disease 01/19/18 Sindi Mcfarland MA 09/22/18 Mao Powell MD [address] [place] [address] [place] [address] Orthopedic Surgery 05/22/21 Jeff Douglas MD [address] [place] [address] [address] Orthopedic Surgery 07/18/21 documented as of this encounter
--- OUTSIDE RECORDS SUMMARY | 2024-12-28 10:38 | XMS_ITS | Encounter Summary ---
Author Organization [facility] Address [address] [place] [address] Care Team Providers Care Mortgage Originator Name Role Phone Nhi AZUL MD, Morris Wilson Unavailable Haven lisailable Kirby Kaur MD Unavailable [phone] Nicholas Cristobal MD Unavailable Charlie Ayala PA-C Unavailable Sully Castillo LPN Unavailable Unavailable Florin Vicente MD Unavailable Tiffanie Avery MD Primary Care Provider [phone] Sindi Mcfarland MA Unavailable Unavailable Mao Powell MD Unavailable [phone] Jeff Douglas MD Unavailable [phone] Tiffanie Avery MD Primary Care Provider [phone] Encounter Details Date Type Department Care Team (Late st Contact Info) Description 01/31/2021 Telephone [facility] [address] [place] [address] [place] [address] Tiffanie Avery MD [address] [place] [address] Social History Tobacco Use Types Packs/Day Years [...] 9:30 AM EST Office Visit [facility] [address], [address] [place] [address] Marcos Santana APRN [address] [place], [place] [address] [place] [address] documented as of this encounter Visit Diagnoses Not on filedocumented in this encounter Additional Health Concerns Assessment Noted Time PHQ-9 Depression Total Score: 0 04/01/20 19 2:31 PM EST documented as of this encounter Care Teams Mortgage Originator Relationship Specialty Start Date End Date Tiffanie Avery MD [address] [place] [address] PCP - General Family Medicine 01/20/18 10/28/23 Tiffanie Avery MD [address] [place] [address] PCP - General Family Medicine 12/22/23 Stew Hankins III, MD Gastroenterology 10/25/10 Kirby Kaur MD [address] [place] [address] [address] [place], [place] [address] Family Medicine 12/23/11 Nicholas Cristobal MD [address] [place] [address] 430 [facility] [place], [place] [address] Gastroenterology 08/08/14 Charlie Ayala PA-C [address] [place] [address] [address] [place] [address] Physician Sandblaster Glass 02/05/15 Sully Castillo LPN 02/22/15 Florin Vicente MD [address] [facility] [place] [address] Pulmonary Disease 01/19/18 Sindi Mcfarland MA 09/22/18 Mao Powell MD [address] [place] [address] [place] [address] Orthopedic Surgery 05/22/21 Jeff Douglas MD [address] [place] [address] [place] [address] Orthopedic Surgery 07/18/21 documented as of this encounter
--- OUTSIDE RECORDS SUMMARY | 2024-12-28 10:38 | XMS_ITS | Encounter Summary ---
Author Organization [facility] Address [address] [place] [address] Care Team Providers Care Batch Mixing Truck Driver Name Role Phone Abhi Ruiz MD Primary Care Provider Unavailabl Rikki Stone DO Primary Care Provider [phone] hNi AZUL MD, Morris Wilson Unavailable Haven Louie Pace MD Primary Care Provider [phone] Kirby Kaur MD Unavailable [phone] Maricruz Burris APRN Primary Care Provide r Nicholas Cristobal MD Unavailable Doctor, No Primary Care Provider UnavailCharlie Greenberg PA-C Unavailable Sully Castillo LPN Unavailable Unavailable Julio Samayoa APRN Primary Care Provider [phone] Julio Samayoa APRN Primary Care Provider [phone] Florin Vicente MD Unavailable Tiffanie Avery MD Primary Care Provider [phone] Sindi Mcfarland MA Unavailable Unavailable Mao Pwoell MD Unavailable [phone] Jeff Douglas MD Unavailable [phone] Tiffanie Avery MD Primary Care Provider [phone] Encounter Details Date Type Department Care Team [...] Upcoming Encounters Date Type Department Care Team ([facility] st Contact Info) Description 06/12/2025 9:30 AM EST Office Visit [facility] [address], [address] [place] [address] Marcos Santana APRN [address] [place] [address],[address] [place], [place] [address] documented as of this encounter Visit Diagnoses Not on filedocumented in this encounter Care Teams Batch Mixing Truck Driver Relationship Specialty Start Date End Date Abhi Ruiz MD PCP - General 12/29/07 10/04/09 Rikki Painter DO [address] [place] [address] PCP - General Family Medicine 10/05/09 06/12/11 Louie Purdy MD [address] [place] [address] PCP - General Family Medicine 06/13/11 07/05/14 Maricruz Burris, CLIENT SERVICES ADMINISTRATOR [address] [place] [address] PCP - General Nurse Practitioner 07/06/14 11/29/14 Otilia Abreu [place] PCP - General Family Medicine 11/30/14 04/25/15 Julio Samayoa APRN [address] [place] [address] PCP - General nurse practitioner adult care 04/26/15 01/19/17 Julio Samayoa APRN [address] [place] [address] PCP - General Family Practice 01/20/17 01/19/18 Tiffanie Avery MD [address] [place] [address] [place] [address] PCP - General Family Medicine 01/20/18 10/28/23 Tiffanie Avery MD [address] [place] [address] [place] [address] PCP - General Family Medicine 12/22/23 Stew Hankins III, MD Gastroenterology 10/25/10 Kirby Kaur MD [address] [place] [address] [address] Family Medicine 12/23/11 Nicholas Cristobal MD [address] [place] [address] [address] [place] [address] Gastroenterology 08/08/14 Charlie Ayala, PA-C [address] [place] [address] [address] [place] [address] Physician Window Unit Air Conditioning Mechanic 02/05/15 Sully Castillo LPN 02/22/15 [place] [address] [place] [address] [address] Pulmonary Disease 01/19/18 Sindi Mcfarland MA 09/22/18 Mao Powell MD [address] [place] [address] [address] Orthopedic Surgery 05/22/21 Jeff Douglas MD 613 [address] [address] [place] [address] Orthopedic Surgery 07/18/21 documented as of this encounter
--- OUTSIDE RECORDS SUMMARY | 2024-12-28 10:38 | XMS_ITS | Encounter Summary ---
Author Organization [facility] Address [address] [place] [address] Care Team Providers Care Veneer Measurer Name Role Phone Abhi Ruiz MD Primary Care Provider Unavailabl Rikki Stone DO Primary Care Provider [phone] Nhi AZUL MD, Morris Wilson Unavailable Haven Louie Pace MD Primary Care Provider [phone] Kirby Kaur MD Unavailable [phone] Maricruz Burris APRN Primary Care Provide r Nicholas Cristobal MD Unavailable Doctor, No Primary Care Provider UnavailCharlie Greenberg PA-C Unavailable [phone] Sully Castillo LPN Unavailable Unavailable Julio Samayoa APRN Primary Care Provider [phone] Julio Samayoa APRN Primary Care Provider [phone] Florin Vicente MD Unavailable Tiffanie Avery MD Primary Care Provider [phone] Sindi Mcfarland MA Unavailable Unavailable Mao Powell MD Unavailable [phone] Jeff Douglas MD Unavailable [phone] Tiffanie Avery MD Primary Care Provider [phone] Encounter Details Date Type Department Care Team [...] Upcoming Encounters Date Type Department Care Team ([facility] st Contact Info) Description 06/12/2025 9:30 AM EST Office Visit [facility] [address], [address] [place] [address] Marcos Santana APRN [address] [place] [address],[address] [place] [address] documented as of this encounter Visit Diagnoses Not on filedocumented in this encounter Care Teams Veneer Measurer Relationship Specialty Start Date End Date Abhi Ruiz MD PCP - General 12/29/07 10/04/09 Rikki Painter DO [address] [place] [address] PCP - General Family Medicine 10/05/09 06/12/11 Louie Purdy MD [address] [place] [address] PCP - General Family Medicine 06/13/11 07/05/14 Maricruz Burris APRN [address] [place] [address] PCP - General Nurse Practitioner 07/06/14 11/29/14 Otilia Abreu [place] PCP - General Family Medicine 11/30/14 04/25/15 Julio Samayoa APRN [address] [place] [address] PCP - General nurse practitioner adult care 04/26/15 01/19/17 Julio Samayoa APRN [address] [place] [address] PCP - General Family Practice 01/20/17 01/19/18 Tiffanie Avery MD [address] [place] [address] [place] [address] PCP - General Family Medicine 01/20/18 10/28/23 Tiffanie Avery MD [address] [place] [address] PCP - General Family Medicine 12/22/23 Stew Hankins III, MD Gastroenterology 10/25/10 Kirby Kaur MD [address] [place] [address] Family Medicine 12/23/11 Nicholas Cristobal MD [address] [place] [address] [address] [place] [address] Gastroenterology 08/08/14 Charlie Ayala, PA-C [address] [place] [address] 430 [place] [address] Physician Mentally Impaired Teacher 02/05/15 Sully Castillo LPN 02/22/15 [place] [address] [place] [address] [address] Pulmonary Disease 01/19/18 Sindi Mcfarland MA 09/22/18 Mao Powell MD [address] [place] [address] [address] Orthopedic Surgery 05/22/21 Jeff Douglas MD 613 [address] [address] [place] [address] Orthopedic Surgery 07/18/21 documented as of this encounter
--- OUTSIDE RECORDS SUMMARY | 2024-12-28 10:39 | XMS_ITS | Encounter Summary ---
Author Organization [facility] Address [address] [place] [address] Care Team Providers Care Ore Dressing Engineer Name Role Phone Abhi Ruiz MD Primary Care Provider Unavailabl Rikki Stone DO Primary Care Provider [phone] Nhi AZUL MD, Morris Wilson Unavailable Haven Louie Pace MD Primary Care Provider Kirby Kaur MD Unavailable [phone] Maricruz Burris APRN Primary Care Provide r Nicholas Cristobal MD Unavailable Doctor, No Primary Care Provider UnavailCharlie Greenberg PA-C Unavailable Sully Castillo LPN Unavailable Unavailable Julio Samayoa APRN Primary Care Provider [phone] Julio Samayoa APRN Primary Care Provider [phone] Florin Vicente MD Unavailable Tiffanie Avery MD Primary Care Provider Sindi Mcfarland MA Unavailable Unavailable Mao Powell MD Unavailable [phone] Jeff Douglas MD Unavailable [phone] Tiffanie Avery MD Primary Care Provider Encounter [...] Upcoming Encounters Date Type Department Care Team ([facility] st Contact Info) Description 06/12/2025 9:30 AM EST Office Visit [facility] [address], [address] [place] [address] Marcos Santana APRN [address] [place] [address],[address] [place], [place] [address] documented as of this encounter Visit Diagnoses Not on filedocumented in this encounter Care Teams Ore Dressing Engineer Relationship Specialty Start Date End Date Abhi Ruiz MD PCP - General 12/29/07 10/04/09 Rikki Painter DO [address] [place] [address] PCP - General Family Medicine 10/05/09 06/12/11 Louie Purdy MD [address] [place] [address] PCP - General Family Medicine 06/13/11 07/05/14 Maricruz Burris, NEMATOLOGIST [address] [place] [address] PCP - General Nurse Practitioner 07/06/14 11/29/14 Otilia Abreu [place] PCP - General Family Medicine 11/30/14 04/25/15 Julio Samayoa APRN [address] [place] [address] PCP - General nurse practitioner adult care 04/26/15 01/19/17 Julio Samayoa APRN [address] [place] [address] PCP - General Family Practice 01/20/17 01/19/18 Tiffanie Avery MD [address] [place] [address] [place] [address] PCP - General Family Medicine 01/20/18 10/28/23 Tiffanie Avery MD [address] [place] [address] [place] [address] PCP - General Family Medicine 12/22/23 Stew Hankins III, MD Gastroenterology 10/25/10 Kirby Kaur MD [address] [place] [address] [address] Family Medicine 12/23/11 Nicholas Cristobal MD [address] [place] [address] [address] [place] [address] Gastroenterology 08/08/14 Charlie Ayala, PA-C [address] [place] [address] [address] [place] [address] Physician Apartment Locator 02/05/15 Sully Castillo LPN 02/22/15 [place] [address] [place] [address] [address] Pulmonary Disease 01/19/18 Sindi Mcfarland MA 09/22/18 Mao Powell MD [address] [place] [address] [address] Orthopedic Surgery 05/22/21 Jeff Douglas MD 613 [address] [address] [place] [address] Orthopedic Surgery 07/18/21 documented as of this encounter
--- OUTSIDE RECORDS SUMMARY | 2024-12-28 10:39 | XMS_ITS | Encounter Summary ---
Author Organization [facility] Address [address] [place] [address] Care Team Providers Care Ramp Boss Name Role Phone Nhi AZUL MD, Morris Wilson Unavailable Haven vailaKirby Woods MD Unavailable [phone] Nicholas Cristobal MD Unavailable Doctor, No Primary Care Provider UnavailCharlie Greenberg PA-C Unavailable Sully Castillo LPN Unavailable Unavailable Julio Samayoa APRN Primary Care Provider [phone] Julio Samayoa APRN Primary Care Provider [phone] Florin Vicente MD Unavailable Tifafnie Avery MD Primary Care Provider [phone] Sindi Mcfarland MA Unavailable Unavailable Mao Powell MD Unavailable Jeff Douglas MD Unavailable [phone] Tiffanie Avery MD Primary Care Provider [phone] Encounter Details Date Type Department Care Team (Late st Contact Info) Description 03/16/2015 Orders Only [facility] [address] [place] [address] Fatemeh Le LPN Social History [...] 9:30 AM EST Office Visit [facility] [place] [address] [place] [address] [address] [place] [address] Marcos Santana APRN [address] [place] [address],[address] [place] [address] documented as of this encounter Visit Diagnoses Not on filedocumented in this encounter Care Teams Ramp Boss Relationship Specialty Start Date End Date Otilia Abre[place] PCP - General Family Medicine 11/30/14 04/25/15 Julio Samayoa APRN [address] [place] [address] PCP - General nurse practitioner adult care 04/26/15 01/19/17 Julio Samayoa APRN [address] [place] [address] PCP - General Family Practice 01/20/17 01/19/18 Tiffanie Avery MD [address] [place] [address] PCP - General Family Medicine 01/20/18 10/28/23 Tiffanie Avery MD [address] [place] [address] PCP - General Family Medicine 12/22/23 Stew Hankins III, MD Gastroenterology 10/25/10 Kirby Kaur MD [address] [place] [address] [address] Family Medicine 12/23/11 Nicholas Cristobal MD [address] [place] [address] [place] [address] Gastroenterology 08/08/14 Charlie Ayala, TORIC [address] [place] [address] [place] [address] Physician Box Stapler 02/05/15 Sully Castillo LPN 02/22/15 [place] [address] [place] [address] [address] Pulmonary Disease 01/19/18 Sindi Mcfarland MA 09/22/18 Moa Powell MD [address] [place] [address] [address] Orthopedic Surgery 05/22/21 Jeff Douglas MD [address] [place] [address] Orthopedic Surgery 07/18/21 documented as of this encounter
--- OUTSIDE RECORDS SUMMARY | 2024-12-28 10:39 | XMS_ITS | Encounter Summary ---
Author Organization [facility] Address [address] [place] [address] Care Team Providers Care Project Drilling Engineer Name Role Phone Abhi Ruiz MD Primary Care Provider Unavailabl Rikki Stone DO Primary Care Provider [phone] Nhi AZUL MD, Morris Wilson Unavailable Haven Louie Pace MD Primary Care Provider [phone] Kirby Kaur MD Unavailable [phone] Maricruz Burris APRN Primary Care Provide r Nicholas Cristobal MD Unavailable Doctor, No Primary Care Provider UnavailCharlie Greenberg PA-C Unavailable Sully Castillo LPN Unavailable Unavailable Julio Samayoa APRN Primary Care Provider [phone] Julio Samayoa APRN Primary Care Provider [phone] Florin Vicente MD Unavailable Tiffanie Avery MD Primary Care Provider Sindi Mcfarland MA Unavailable Unavailable Mao Powell MD Unavailable [phone] Jeff Douglas MD Unavailable [phone] Tiffanie Avery MD Primary Care Provider Encounter [...] Encounters Date Type Department Care Team ([facility] st Contact Info) Description 06/12/2025 9:30 AM EST Office Visit [facility] [address], [address] [place] [address] Marcos Santana APRN [address] [place] [address],[address] [place], [place] [address] documented as of this encounter Visit Diagnoses Not on filedocumented in this encounter Care Teams Project Drilling Engineer Relationship Specialty Start Date End Date Abhi Ruiz MD PCP - General 12/29/07 10/04/09 Rikki Painter DO [address] [place] [address] PCP - General Family Medicine 10/05/09 06/12/11 Louie Purdy MD [address] [place] [address] PCP - General Family Medicine 06/13/11 07/05/14 Maricruz Burris, BODY FORMER [address] [place] [address] PCP - General Nurse Practitioner 07/06/14 11/29/14 Otilia Abreu [place] PCP - General Family Medicine 11/30/14 04/25/15 Julio Samayoa APRN [address] [place] [address] PCP - General nurse practitioner adult care 04/26/15 01/19/17 Julio Samayoa APRN [address] [place] [address] PCP - General Family Practice 01/20/17 01/19/18 Tiffanie Avery MD [address] [place] [address] [place] [address] PCP - General Family Medicine 01/20/18 10/28/23 Tiffanie Avery MD [address] [place] [address] [place] [address] PCP - General Family Medicine 12/22/23 Stew Hankins III, MD Gastroenterology 10/25/10 Kirby Kaur MD [address] [place] [address] [address] Family Medicine 12/23/11 Nicholas Cristobal MD [address] [place] [address] [address] [place] [address] Gastroenterology 08/08/14 Charlie Ayala, PA-C [address] [place] [address] [address] [place] [address] Physician Roller Staker 02/05/15 Sully Castillo LPN 02/22/15 [place] [address] [place] [address] [address] Pulmonary Disease 01/19/18 Sindi Mcfarland MA 09/22/18 Mao Powell MD [address] [place] [address] [address] Orthopedic Surgery 05/22/21 Jeff Douglas MD 613 [address] [address] [place] [address] Orthopedic Surgery 07/18/21 documented as of this encounter
--- OUTSIDE RECORDS SUMMARY | 2024-12-28 10:39 | XMS_ITS | Encounter Summary ---
Author Organization [facility] Address [address] [id number] Care Team Providers Care Patrol Mother Name Role Phone Nhi AZUL MD, Morris Wilson Unavailable Haven vailable Kirby Kaur MD Unavailable [phone] Nicholas Cristobal MD Unavailable Doctor, No Primary Care Provider UnavailCharlie Greenberg PA-C Unavailable Sully Castillo LPN Unavailable Unavailable Julio Samayoa APRN Primary Care Provider Julio Samayoa APRN Primary Care Provider Florin Vicente MD Unavailable Tiffanie Avery MD Primary Care Provider [phone] Sindi Mcfarland MA Unavailable Unavailable Mao Powell MD Unavailable [phone] Jeff Douglas MD Unavailable Tiffanie Avery MD Primary Care Provider [phone] Reason for Referral * Consultation (Urgent) - Canceled Specialty Diagnoses / Procedures Referred By Esperanza de Referred To Contact Gastroenterology Diagnoses Anemia, unspecified anemia type Blood in stool Hanny Hartley APRN [address] [place] [address] Phone: tel: fax: Referral ID Status Reason Start Date Expiration Date V isits Requested Visits Authorized [id number] Canceled 02/02/2015 1 1 Encounter Details Date Type Department Care Team (Late st Contact Info) Description 02/02/2015 Orders Only [facility] [address] [place] [phone] Hanny Hartley APRN [address] [place] [address] Anemia, unspecified anemia type (Primary [...] 9:30 AM EST Office Visit [facility] [address] [place] [address] Marcos Santana APRN [address] [place], [place] [address] [place], [place] [id number] Scheduled Referrals Name Type Priority Associated Diagnoses Order Schedule Ambulatory referral to Gastroenterology Outpatient Referral Routine Anemia, unspecified anemia type Blood in stool Ordered: 02/02/2015 documented as of this encounter Visit Diagnoses Diagnosis Anemia, unspecified anemia type- Primary Blood in stool documented in this encounter Care Teams Patrol Mother Relationship Specialty Start Date End Date Otilia Abreu [place] PCP - General Family Medicine 11/30/14 04/25/15 Julio Samayoa APRN [address] [place] [address] PCP - General nurse practitioner adult care 04/26/15 01/19/17 Julio Samayoa APRN [address] [facility] [place] [address] PCP - General Family Practice 01/20/17 01/19/18 Tiffanie Avery MD [address] [place] [id number] PCP - General Family Medicine 01/20/18 10/28/23 Tiffanie Avery MD [address] [place] [address] [id number] PCP - General Family Medicine 12/22/23 Stew Hankins III, MD Gastroenterology 10/25/10 Kirby Kaur MD [address] [place] [address] Family Medicine 12/23/11 Nicholas Cristobal MD [address] [place] [address] Gastroenterology 08/08/14 Charlie Ayala, PAMindiC [address] [place] [address] Physician Straight Line Edger 02/05/15 Sully Castillo LPN 02/22/15 Florin Vicente MD [address] [place] [address] [address] Pulmonary Disease 01/19/18 Sindi Mcfarland MA 09/22/18 Mao Powell MD [address] [place] [address] Orthopedic Surgery 05/22/21 Jeff Douglas MD [address] [place] [address] Orthopedic Surgery 07/18/21 documented as of this encounter
--- OUTSIDE RECORDS SUMMARY | 2024-12-28 10:39 | XMS_ITS | Encounter Summary ---
Author Organization [facility] Address [address] [place] [address] Care Team Providers Care Engine Specialist Name Role Phone Abhi Ruiz MD Primary Care Provider Unavailabl Rikki Stone DO Primary Care Provider [phone] Nhi AZUL MD, Morris Wilson Unavailable Haven Louie Pace MD Primary Care Provider Kirby Kaur MD Unavailable [phone] Maricruz Burris APRN Primary Care Provide r Nicholas Cristobal MD Unavailable Doctor, No Primary Care Provider UnavailCharlie Greenberg PA-C Unavailable Sully Castillo LPN Unavailable Unavailable Julio Samayoa APRN Primary Care Provider [phone] Julio Samayoa APRN Primary Care Provider [phone] Florin Vicente MD Unavailable Tiffanie Avery MD Primary Care Provider Sindi Mcfarland MA Unavailable Unavailable Mao Powell MD Unavailable [phone] Jeff Douglas MD Unavailable [phone] Tiffanie Avery MD Primary Care Provider [phone] Encounter Details Date Type Department Care Team [...] Upcoming Encounters Date Type Department Care Team ([facility] st Contact Info) Description 06/12/2025 9:30 AM EST Office Visit [facility] [address], [address] [place] [address] Marcos Santana APRN [address] [place] [address],[address] [place] [address] documented as of this encounter Visit Diagnoses Not on filedocumented in this encounter Care Teams Engine Specialist Relationship Specialty Start Date End Date Abhi Ruiz MD PCP - General 12/29/07 10/04/09 Rikki Painter DO [address] [place] [address] PCP - General Family Medicine 10/05/09 06/12/11 Louie Purdy MD [address] [place] [address] PCP - General Family Medicine 06/13/11 07/05/14 Maricruz Burris APRN [address] [place] [address] PCP - General Nurse Practitioner 07/06/14 11/29/14 Otilia Abreu [place] PCP - General Family Medicine 11/30/14 04/25/15 Julio Samayoa APRN [address] [place] [address] PCP - General nurse practitioner adult care 04/26/15 01/19/17 Julio Samayoa APRN [address] [place] [facility] [place] [address] PCP - General Family Practice 01/20/17 01/19/18 Tiffanie Avery MD [address] [place] [address] [place] [address] PCP - General Family Medicine 01/20/18 10/28/23 Tiffanie Avery MD [address] [place] [address] PCP - General Family Medicine 12/22/23 Stew Hankins III, MD Gastroenterology 10/25/10 Kirby Kaur MD [address] [place] [address] Family Medicine 12/23/11 Nicholas Cristobal MD [address] [place] [address] [address] [place] [address] Gastroenterology 08/08/14 Charlie Ayala, PA-C [address] [place] [address] [address] [place] [address] Physician Pcu Rn 02/05/15 Sully Castillo LPN 02/22/15 [place] [address] [place] [address] [address] Pulmonary Disease 01/19/18 Sindi Mcafrland MA 09/22/18 Mao Powell MD [address] [place] [address] [address] Orthopedic Surgery 05/22/21 Jeff Douglas MD [address] [address] [place] [id number] Orthopedic Surgery 07/18/21 documented as of this encounter
--- OUTSIDE RECORDS SUMMARY | 2024-12-28 10:39 | XMS_ITS | Encounter Summary ---
Author Organization [facility] Address [address] [place] [address] Care Team Providers Care Rag Cutting Machine Operator Name Role Phone Abhi Ruiz MD Primary Care Provider Unavailabl Rikki Stone DO Primary Care Provider [phone] Nhi AZUL MD, Morris Wilson Unavailable Haven Louie Pace MD Primary Care Provider Kirby Kaur MD Unavailable [phone] Maricruz Burris APRN Primary Care Provide r Nicholas Cristobal MD Unavailable Doctor, No Primary Care Provider UnavailCharlie Greenberg PA-C Unavailable [phone] Sully Castillo LPN Unavailable Unavailable Julio Samayoa APRN Primary Care Provider [phone] Julio Samayoa APRN Primary Care Provider [phone] Florin Vicente MD Unavailable Tiffanie Avery MD Primary Care Provider Sindi Mcfarland MA Unavailable Unavailable Mao Powell MD Unavailable [phone] Jeff Douglas MD Unavailable [phone] Tiffanie Avery MD Primary Care Provider [phone] Encounter Details Date Type Department Care Team [...] 9:30 AM EST Office Visit [facility] [address], [address] [place] [address] Marcos Santana APRN [address] [place] [address],[address] [place], [place] [id number] documented as of this encounter Visit Diagnoses Not on filedocumented in this encounter Care Teams Rag Cutting Machine Operator Relationship Specialty Start Date End Date Abhi Ruiz MD PCP - General 12/29/07 10/04/09 Rikki Painter DO [address] [place] [address] PCP - General Family Medicine 10/05/09 06/12/11 Louie Purdy MD [address] [place] [address] PCP - General Family Medicine 06/13/11 07/05/14 Maricruz Burris, LIME KILN OPERATOR [address] [place] [address] PCP - General Nurse Practitioner 07/06/14 11/29/14 Otilia Abreu [place] PCP - General Family Medicine 11/30/14 04/25/15 Julio Samayoa APRN [address] [place] [address] PCP - General nurse practitioner adult care 04/26/15 01/19/17 Julio Samayoa APRN [address] [place] [address] PCP - General Family Practice 01/20/17 01/19/18 Tiffanie Avery MD [address] [place] [address] [place] [address] PCP - General Family Medicine 01/20/18 10/28/23 Tiffanie Avery MD [address] [place] [address] [place] [address] PCP - General Family Medicine 12/22/23 Stew Hankins III, MD Gastroenterology 10/25/10 Kirby Kaur MD [address] [place] [address] [address] Family Medicine 12/23/11 Nicholas Cristobal MD [address] [place] [address] [address] [place] [address] Gastroenterology 08/08/14 Charlie Ayala, PA-C [address] [place] [address] [address] [place] [address] Physician Director Of Channel Marketing 02/05/15 Sully Castillo LPN 02/22/15 [place] [address] [place] [address] [address] Pulmonary Disease 01/19/18 Sindi Mcfarland MA 09/22/18 Mao Powell MD [address] [place] [address] [address] Orthopedic Surgery 05/22/21 Jeff Douglas MD 613 [address] [address] [place] [address] Orthopedic Surgery 07/18/21 documented as of this encounter
--- OUTSIDE RECORDS SUMMARY | 2024-12-28 10:39 | XMS_ITS | Encounter Summary ---
Author Organization [facility] Address [address] [place] [address] Care Team Providers Care Certified Vehicle Fire Investigator Name Role Phone Nhi AZUL MD, Morris Wilson Unavailable Haven vailable Kirby Kaur MD Unavailable [phone] Nicholas Cristobal MD Unavailable Doctor, No Primary Care Provider UnavailCharlie Greenberg PA-C Unavailable Sully Castillo LPN Unavailable Unavailable Julio Samayoa APRN Primary Care Provider [phone] Julio Samayoa APRN Primary Care Provider [phone] Florin Vicente MD Unavailable Tiffanie Avery MD Primary Care Provider [phone] Sindi Mcfarland MA Unavailable Unavailable Mao Powell MD Unavailable Jeff Douglas MD Unavailable Tiffanie Avery MD Primary Care Provider Encounter Details Date Type Department Care Team (Late st Contact Info) Description 02/27/2015 Telephone [facility] [address] [place] [address] [address] [place] [address] Charlie Ayala PA-C [address] [place] [address] Social History Tobacco Use Types [...] 9:30 AM EST Office Visit [facility] [address], [address] [place] [address] Marcos Santana APRN [address] [place] [address],[address] [place] [address] documented as of this encounter Visit Diagnoses Not on filedocumented in this encounter Care Teams Certified Vehicle Fire Investigator Relationship Specialty Start Date End Date Doctor, SHADI Loomis PCP - General Family Medicine 11/30/14 04/25/15 Julio Samayoa APRN [address] [place] [address] PCP - General nurse practitioner adult care 04/26/15 01/19/17 Julio Samayoa APRN [address] [place] [address] PCP - General Family Practice 01/20/17 01/19/18 Tiffanie Avery MD [address] [place] [address] PCP - General Family Medicine 01/20/18 10/28/23 Tiffanie Avery MD [address] [place] [address] PCP - General Family Medicine 12/22/23 Stew Hankins III, MD Gastroenterology 10/25/10 Kirby Kaur MD [address] [address] [place] [address] Family Medicine 12/23/11 Nicholas Cristobal MD [address] [place] [address] Gastroenterology 08/08/14 Charlie Ayala PA-C [address] [place] [address] Physician Precipitator Operator 02/05/15 Sully Castillo LPN 02/22/15 Florin Vicente MD [address] [facility] [address] [place] [address] Pulmonary Disease 01/19/18 Sindi Mcfarland MA 09/22/18 Mao Powell MD [address] [place] [address] [address] Orthopedic Surgery 05/22/21 Jeff Douglas MD [address] [place] [address] [address] Orthopedic Surgery 07/18/21 documented as of this encounter
--- OUTSIDE RECORDS SUMMARY | 2024-12-28 10:39 | XMS_ITS | Encounter Summary ---
Author Organization [facility] Address [address] [place] [address] Care Team Providers Care Shank Sander Name Role Phone Nhi AZUL MD, Morris Wilson Unavailable Haven lisailable Kirby Kaur MD Unavailable Nicholas Cristobal MD Unavailable Charlie Ayala PA-C Unavailable Sully Castillo LPN Unavailable Unavailable Florin Vicente MD Unavailable Tiffanie Avery MD Primary Care Provider [phone] Sindi Mcfarland MA Unavailable Unavailable Mao Powell MD Unavailable [phone] Jeff Douglas MD Unavailable [phone] Tiffanie Avery MD Primary Care Provider [phone] Encounter Details Date Type Department Care Team (Late st Contact Info) Description 01/21/2021 Telephone [facility] [address] [place] [address] [place] [address] Tiffanie Avery MD [address] [place] [address] Social History Tobacco Use Types Packs/Day Years [...] Description 06/12/2025 9:30 AM EST Office Visit [facility] [address], [address] [place] [id number] Marcos Santana, FIELD CROP FARMING SUPERVISOR [address] [place] [address],[address] [place], [place] [id number] documented as of this encounter Visit Diagnoses Diagnosis Gout, unspecified cause, unspecified chronicity, unspecified site- Primary documented in this encounter Additional Health Concerns Assessment Noted Time PHQ-9 Depression Total Score: 0 04/01/20 19 2:31 PM EST documented as of this encounter Care Teams Shank Sander Relationship Specialty Start Date End Date Tiffanie Avery MD [address] [place] [address] PCP - General Family Medicine 01/20/18 10/28/23 Tiffanie Avery MD [address] [place] [address] PCP - General Family Medicine 12/22/23 Stew Hankins III, MD Gastroenterology 10/25/10 Kirby Kaur MD [email or web address] [address] [place] [address] Family Medicine 12/23/11 Nicholas Cristobal MD [address] [place] [address] Gastroenterology 08/08/14 Charlie Ayala PA-C [address] [place] [address] Physician Chlorination Operator 02/05/15 Sully Castillo LPN 02/22/15 Florin Vicente MD [address] [facility] [address] [place] [address] Pulmonary Disease 01/19/18 Sindi Mcfarland MA 09/22/18 Mao Powell MD [address] [place] [address] [address] Orthopedic Surgery 05/22/21 Jeff Douglas MD [address] [place] [address] [address] Orthopedic Surgery 07/18/21 documented as of this encounter
--- OUTSIDE RECORDS SUMMARY | 2024-12-28 10:39 | XMS_ITS | Encounter Summary ---
Author Organization [facility] Address [address] [place] [address] Care Team Providers Care Belt Loop Machine Operator Name Role Phone Nhi AZUL MD, Morris Wilson Unavailable Haven vailable Kirby Kaur MD Unavailable [phone] Nicholas Cristobal MD Unavailable Doctor, No Primary Care Provider UnavailCharlie Greenberg PA-C Unavailable Sully Castillo LPN Unavailable Unavailable Julio Samayoa APRN Primary Care Provider [phone] Julio Samayoa APRN Primary Care Provider Florin Vicente MD Unavailable Tiffanie Avery MD Primary Care Provider [phone] Sindi Mcfarland MA Unavailable Unavailable Mao Powell MD Unavailable Jeff Douglas MD Unavailable Tiffanie Avery MD Primary Care Provider [phone] Encounter Details Date Type Department Care Team (Late st Contact Info) Description 02/21/2015 Telephone [facility] [address] [place] [address] [address] [place] [address] Nicholas Cristobal MD [address] [place], [place] [address] Social History Tobacco Use Types Packs/Day Years [...] Upcoming Encounters Date Type Department Care Team ([facility] st Contact Info) Description 06/12/2025 9:30 AM EST Office Visit [facility] [address], [address] [place] [address] Marcos Santana APRN [address] [place] [address],[address] [place], [place] [address] documented as of this encounter Visit Diagnoses Not on filedocumented in this encounter Care Teams Belt Loop Machine Operator Relationship Specialty Start Date End Date Doctor, SHADI Loomis PCP - General Family Medicine 11/30/14 04/25/15 Julio Samayoa APRN [address] [place] [address] PCP - General nurse practitioner adult care 04/26/15 01/19/17 Julio Samayoa APRN [address] [place] [address] PCP - General Family Practice 01/20/17 01/19/18 Tiffanie Avery MD [address] [place] [id number] PCP - General Family Medicine 01/20/18 10/28/23 Tiffanie Avery MD [address] [place] [address] PCP - General Family Medicine 12/22/23 Stew Hankins III, MD Gastroenterology 10/25/10 Kirby Kaur MD [address] [address] [place] [address] Family Medicine 12/23/11 Nicholas Cristobal MD [address] [place] [address] Gastroenterology 08/08/14 Charlie Ayala PA-C [address] [place] [address] Physician Cylinder Grinder 02/05/15 Sully Castillo, PRINCESS 02/22/15 Florin Vicente MD [address] [facility] [address] [place], [place] [address] Pulmonary Disease 01/19/18 Sindi Mcfarland MA 09/22/18 Mao Powell MD [address] [place] [address] Orthopedic Surgery 05/22/21 Jeff Douglas MD [address] [place] [address] Orthopedic Surgery 07/18/21 documented as of this encounter
--- OUTSIDE RECORDS SUMMARY | 2024-12-28 10:39 | XMS_ITS | Encounter Summary ---
Author Organization [facility] Address [address] [place] [address] Care Team Providers Care Instrumental Teacher Name Role Phone Nhi AZUL MD, Morris Wilson Unavailable Haven karenble Louie Purdy MD Primary Care Provider [phone] Kirby Kaur MD Unavailable [phone] Maricruz Burris APRN Primary Care Provide r Nicholas Cristobal MD Unavailable Doctor, No Primary Care Provider UnavailCharlie Greenberg PA-C Unavailable Sully Castillo LPN Unavailable Unavailable Julio Samayoa APRN Primary Care Provider [phone] Julio Samayoa APRN Primary Care Provider [phone] Florin Vicente MD Unavailable Tiffanie Avery MD Primary Care Provider [phone] Sindi Mcfarland MA Unavailable Unavailable Mao Powell MD Unavailable [phone] Jeff Douglas MD Unavailable [phone] Tiffanie Avery MD Primary Care Provider [phone] Reason for Visit * Reason Onset Date Comments Medications Refill 10/17/2011 Encounter Details Date Type Department Care Team (Late st Contact Info) Description 10/17/[address] [facility] [address] [place] [id number] Louie Purdy MD [address] [place] [address] Chronic pain (Primary Dx) Social History Tobacco [...] AM EST Office Visit [facility] [address] [place] [address] Marcos Santana APRN [address] [place] [address],[address] [place] [address] documented as of this encounter Visit Diagnoses Diagnosis Chronic pain- Primary Other chronic pain documented in this encounter Care Teams Instrumental Teacher Relationship Specialty Start Date End Date Louie Purdy MD [address] [place] [address] PCP - General Family Medicine 06/13/11 07/05/14 Maricruz Burris, LOG OPERATIONS COORDINATOR [address] [place] [address] PCP - General Nurse Practitioner 07/06/14 11/29/14 [facility] [place] PCP - General Family Medicine 11/30/14 04/25/15 Julio Samayoa APRN [address] [place] [address] PCP - General nurse practitioner adult care 04/26/15 01/19/17 Julio Samayoa APRN [address] [place] [address] PCP - General Family Practice 01/20/17 01/19/18 Tiffanie Avery MD [address] [place] [id number] PCP - General Family Medicine 01/20/18 10/28/23 Tiffanie Avery MD [address] [place] [address] [id number] PCP - General Family Medicine 12/22/23 Stew Hankins III, MD Gastroenterology 10/25/10 Kirby Kaur MD [address] [place] [address] [address] [place] [address] Family Medicine 12/23/11 Nicholas Cristobal MD [address] [place] [address] Gastroenterology 08/08/14 Charlie Ayala PA-C [address] [place], [place] [address] Physician Plant Maintenance Manager 02/05/15 Sully Castillo LPN 02/22/15 Florin Vicente MD [address] [facility] [address] [place], [place] [phone] Pulmonary Disease 01/19/18 Sindi Mcfarland MA 09/22/18 Mao Powell MD [address] [place] [address] Orthopedic Surgery 05/22/21 Jeff Douglas MD [address] [place] [address] Orthopedic Surgery 07/18/21 documented as of this encounter
--- OUTSIDE RECORDS SUMMARY | 2024-12-28 10:39 | XMS_ITS | Encounter Summary ---
Author Organization [facility] Address [address] [place] [address] Care Team Providers Care Green Marketing Specialist Name Role Phone Abhi Ruiz MD Primary Care Provider Unavailabl Rikki Stone DO Primary Care Provider [phone] Nhi AZUL MD, Morris Wilson Unavailable Haven Louie Pace MD Primary Care Provider Kirby Kaur MD Unavailable [phone] Maricruz Burris APRN Primary Care Provide r Nicholas Cristobal MD Unavailable Doctor, No Primary Care Provider UnavailCharlie Greenberg PA-C Unavailable [phone] Sully Castillo LPN Unavailable Unavailable Julio Samayoa APRN Primary Care Provider [phone] Julio Samayoa APRN Primary Care Provider [phone] Florin Vicente MD Unavailable Tiffanie Avery MD Primary Care Provider [phone] Sindi Mcfarland MA Unavailable Unavailable Mao Powell MD Unavailable [phone] Jeff Douglas MD Unavailable [phone] Tiffanie Avery MD Primary Care Provider [phone] Encounter Details Date Type Department Care Team [...] Upcoming Encounters Date Type Department Care Team ([facility] st Contact Info) Description 06/12/2025 9:30 AM EST Office Visit [facility] [address], [address] [place] [address] Marcos Santana APRN [address] [place] [address],[address] [place], [place] [id number] documented as of this encounter Visit Diagnoses Not on filedocumented in this encounter Care Teams Green Marketing Specialist Relationship Specialty Start Date End Date Abhi Ruiz MD PCP - General 12/29/07 10/04/09 Rikki Painter DO [address] [place] [address] PCP - General Family Medicine 10/05/09 06/12/11 Louie Purdy MD [address] [place] [address] PCP - General Family Medicine 06/13/11 07/05/14 Maricruz Burris, SHREDDER OPERATOR [address] [place] [address] PCP - General Nurse Practitioner 07/06/14 11/29/14 Otilia Abreu [place], [place] PCP - General Family Medicine 11/30/14 04/25/15 Julio Samayoa APRN [address] [place] [address] PCP - General nurse practitioner adult care 04/26/15 01/19/17 Julio Samayoa APRN [address] [place] [address] PCP - General Family Practice 01/20/17 01/19/18 Tiffanie Avery MD [address] [place] [address] [place] [address] PCP - General Family Medicine 01/20/18 10/28/23 Tiffanie Avery MD [address] [place] [address] [place] [address] PCP - General Family Medicine 12/22/23 Stew Hankins III, MD Gastroenterology 10/25/10 Kirby Kaur MD [address] [place] [address] [address] Family Medicine 12/23/11 Nicholas Cristobal MD [address] [place] [address] [address] [place] [address] Gastroenterology 08/08/14 Charlie Ayala, PA-C [address] [place] [address] [address] [place] [address] Physician Auto Camp Attendant 02/05/15 Sully Castillo LPN 02/22/15 [place] [address] [place] [address] [address] Pulmonary Disease 01/19/18 Sindi Mcfarland MA 09/22/18 Mao Powell MD [address] [place] [address] [address] Orthopedic Surgery 05/22/21 Jeff Douglas MD 613 23[facility] [address] [place] [address] Orthopedic Surgery 07/18/21 documented as of this encounter
--- OUTSIDE RECORDS SUMMARY | 2024-12-28 10:39 | XMS_ITS | Encounter Summary ---
Author Organization [facility] Address [address] [place] [address] Care Team Providers Care Hide Selector Name Role Phone Nhi AZUL MD, Morris Wilson Unavailable Haven lisailable Kirby Kaur MD Unavailable [phone] Nicholas Cristobal MD Unavailable Charlie Ayala PA-C Unavailable Sully Castillo LPN Unavailable Unavailable Florin Vicente MD Unavailable Tiffanie Avery MD Primary Care Provider [phone] Sindi Mcfarland MA Unavailable Unavailable Mao Powell MD Unavailable [phone] Jeff Douglas MD Unavailable [phone] Tiffanie Avery MD Primary Care Provider [phone] Reason for Visit * Reason Onset Date Comments Medications Refill 10/21/2018 Encounter Details Date Type Department Care Team (Late st Contact Info) Description 10/21/2018 Refill [facility] [address], [address] [place] [address] Joann Ayoub MD [address] [place] [address] [address] [place] [address] Medications Refill Social History Tobacco [...] encounter Miscellaneous Notes * Telephone Encounter - Dequan oGnzalesa - 10/21/2018 10:50 AM EDT The patient says [facility] never received the prescription of his Norvasc that was sent on 10/11. Please resend. documented in this encounter Plan of Treatment Upcoming Encounters Date Type Department Care Team ([facility] st Contact Info) Description 06/12/2025 9:30 AM EST Office Visit [facility] [address] [address] Marcos Santana APRN [address] [place], [place] [address] [place] [address] documented as of this encounter Visit Diagnoses Diagnosis Coronary artery disease involving [place] coronary artery, angina presence unspecified, unspecified whether [place] or transplanted heart Hypertension, unspecified type Shortness of breath documented in this encounter Additional Health Concerns Assessment Noted Time PHQ-9 Depression Total Score: 0 12/25/19 18 10:45 AM EDT documented as of this encounter Care Teams Hide Selector Relationship Specialty Start Date End Date Tiffanie Avery MD [address] [place] [address] PCP - General Family Medicine 01/20/18 10/28/23 Tiffanie Avery MD [address] [place] [address] PCP - General Family Medicine 12/22/23 Stew Hankins III, MD Gastroenterology 10/25/10 Kirby Kaur MD [address] [place] [address], [place] [address] Family Medicine 12/23/11 Nicholas Cristobal MD [address] [place] [address] Gastroenterology 08/08/14 Charlie Ayala, TORIC [address] [place] [address] Physician Director Life Sciences 02/05/15 Sully Castillo LPN 02/22/15 [place] [address] [place] [address] [address] Pulmonary Disease 01/19/18 Sindi Mcfarland MA 09/22/18 Mao Powell MD [address] [place] [address] [address] Orthopedic Surgery 05/22/21 Jeff Douglas MD [address] [place] [address] Orthopedic Surgery 07/18/21 documented as of this encounter
--- OUTSIDE RECORDS SUMMARY | 2024-12-28 10:39 | XMS_ITS | Encounter Summary ---
Author Organization [facility] Address [address] [place] [address] Care Team Providers Care Host Name Role Phone Abhi Ruiz MD Primary Care Provider Unavailabl Rikki Stone DO Primary Care Provider [phone] Nhi AZUL MD, Morris Wilson Unavailable Haven Louie Pace MD Primary Care Provider Kirby Kaur MD Unavailable [phone] Maricruz Burris APRN Primary Care Provide r Nicholas Cristobal MD Unavailable Doctor, No Primary Care Provider UnavailCharlie Greenberg PA-C Unavailable Sully Castillo LPN Unavailable Unavailable Julio Samayoa APRN Primary Care Provider [phone] Julio Samayoa APRN Primary Care Provider [phone] Florin Vicente MD Unavailable Tiffanie Avery MD Primary Care Provider Sindi Mcfarland MA Unavailable Unavailable Mao Powell MD Unavailable [phone] Jeff Douglas MD Unavailable [phone] Tiffanie Avery MD Primary Care Provider [phone] Encounter Details Date Type Department Care Team [...] Upcoming Encounters Date Type Department Care Team ([facility] st Contact Info) Description 06/12/2025 9:30 AM EST Office Visit [facility] [address], [address] [place] [address] Marcos Santana APRN [address] [place] [address],[address] [place], [place] [address] documented as of this encounter Visit Diagnoses Not on filedocumented in this encounter Care Teams Host Relationship Specialty Start Date End Date Abhi Ruiz MD PCP - General 12/29/07 10/04/09 Rikki Painter DO [address] [place] [address] PCP - General Family Medicine 10/05/09 06/12/11 Louie Purdy MD [address] [place] [address] PCP - General Family Medicine 06/13/11 07/05/14 Maricruz Burris, UNDERGROUND MINE MACHINERY MECHANIC [address] [place] [address] PCP - General Nurse Practitioner 07/06/14 11/29/14 Otilia Abreu [place], [place] PCP - General Family Medicine 11/30/14 04/25/15 Julio Samayoa APRN [address] [place] [address] PCP - General nurse practitioner adult care 04/26/15 01/19/17 Julio Samayoa APRN [address] [place] [address] PCP - General Family Practice 01/20/17 01/19/18 Tiffanie Avery MD [address] [place] [address] [place] [address] PCP - General Family Medicine 01/20/18 10/28/23 Tiffanie Avery MD [address] [place] [address] [place] [address] PCP - General Family Medicine 12/22/23 Stew Hankins III, MD Gastroenterology 10/25/10 Kirby Kaur MD [address] [place] [address] [address] Family Medicine 12/23/11 Nicholas Cristobal MD [address] [place] [address] [address] [place] [address] Gastroenterology 08/08/14 Charlie Ayala, PA-C [address] [place] [address] [address] [place] [address] Physician Audit Manager 02/05/15 Sully Castillo LPN 02/22/15 [place] [address] [place] [address] [address] Pulmonary Disease 01/19/18 Sindi Mcfarland MA 09/22/18 Mao Powell MD [address] [place] [address] [address] Orthopedic Surgery 05/22/21 Jeff Douglas MD 613 23[facility] [address] [place] [address] Orthopedic Surgery 07/18/21 documented as of this encounter
--- OUTSIDE RECORDS SUMMARY | 2024-12-28 10:39 | XMS_ITS | Encounter Summary ---
Author Organization [facility] Address [address] [place] [address] Care Team Providers Care Bench Molder Apprentice Name Role Phone Rikki Painter DO Primary Care Provider [phone] Nhi AZUL MD, Morris Wilson Unavailable Haven lisailaLouie Cui MD Primary Care Provider Kirby Kaur MD Unavailable [phone] Maricruz Burris APRN Primary Care Provide r Nicholas Cristobal MD Unavailable Doctor, No Primary Care Provider UnavailCharlie Greenberg PA-C Unavailable Sully Castillo LPN Unavailable Unavailable Julio Samayoa APRN Primary Care Provider [phone] Julio Samayoa APRN Primary Care Provider [phone] Florin Vicente MD Unavailable Tiffanie Avery MD Primary Care Provider [phone] Sindi Mcfarland MA Unavailable Unavailable Mao Powell MD Unavailable [phone] Jeff Douglas MD Unavailable [phone] Tiffanie Avery MD Primary Care Provider [phone] Reason for Visit * Reason Onset Date Comments Results - Lab 12/24/2009 Encounter Details Date Type Department Care Team (Late st Contact Info) Description 12/24/2009 Telephone [facility] [address] [place] [address] Rikki Painter DO [address] [place] [address] Results - Lab Social History Tobacco Use [...] lab results as soon as possible at [phone],Thank you documented in this encounter Plan of Treatment Upcoming Encounters Date Type Department Care Team (Late st Contact Info) Description 06/12/2025 9:30 AM EST Office Visit [facility] [address], [address] [place] [address] Marcos Santana, YANNICK [address] [place] [address],[address] [place] [address] documented as of this encounter Visit Diagnoses Not on filedocumented in this encounter Care Teams Bench Molder Apprentice Relationship Specialty Start Date End Date Rikki Painter DO [address] [place] [address] PCP - General Family Medicine 10/05/09 06/12/11 Louie Purdy MD [address] [place] [address] PCP - General Family Medicine 06/13/11 07/05/14 Maricruz Burris APRN [address] [place] [address] PCP - General Nurse Practitioner 07/06/14 11/29/14 [facility]CP - General Family Medicine 11/30/14 04/25/15 Julio Samayoa APRN [address] [place] [address] PCP - General nurse practitioner adult care 04/26/15 01/19/17 Julio Samayoa APRN [address] [place] [address] PCP - General Family Practice 01/20/17 01/19/18 Tiffanie Avery MD [address] [place] [address] PCP - General Family Medicine 01/20/18 10/28/23 Tiffanie Avery MD [address] [place] [address] PCP - General Family Medicine 12/22/23 Stew Hankins III, MD Gastroenterology 10/25/10 Kirby Kaur MD [address] [place] [address] Family Medicine 12/23/11 Nicholas Cristobal MD [address] [place] [address] Gastroenterology 08/08/14 Charlie Ayala PA-C [address] [place] [address] [address] [place] [address] Physician Content Production Specialist 02/05/15 Sully Castillo LPN 02/22/15 Florin Vicente MD [address] [place] [address] [place] [address] Pulmonary Disease 01/19/18 Sindi Mcfarland MA 09/22/18 Mao Powell MD [address] [place] [address] [place] [address] Orthopedic Surgery 05/22/21 Jeff Douglas MD [address] [place] [address] [place] [address] Orthopedic Surgery 07/18/21 documented as of this encounter
--- OUTSIDE RECORDS SUMMARY | 2024-12-28 10:39 | XMS_ITS | Encounter Summary ---
Author Organization [facility] Address [address] [place] [address] Care Team Providers Care Grating Machine Operator Name Role Phone Nhi AZUL MD, Morris Wilson Unavailable Haven lisailaKirby Woods MD Unavailable [phone] Maricruz Burris APRN Primary Care Provide r Nicholas Cristobal MD Unavailable Doctor, No Primary Care Provider UnavailCharlie Greenberg PA-C Unavailable Sully Castillo LPN Unavailable Unavailable Julio Samayoa APRN Primary Care Provider [phone] Julio Samayoa APRN Primary Care Provider Florin Vicente MD Unavailable Tiffanie Avery MD Primary Care Provider [phone] Sindi Mcfarland MA Unavailable Unavailable Mao Powell MD Unavailable [phone] Jeff Douglas MD Unavailable [phone] Tiffanie Avery MD Primary Care Provider [phone] Reason for Visit * Reason Onset Date Comments Phone Advice For Symptoms 08/08/2014 please call Lambert from [facility] primary care to schedule pt for colon screening [phone] Encounter Details Date Type Department Care Team (Late st Contact Info) Description 08/08/2014 Telephone [facility] [address] [place] [address] [address] [place] [address] Nicholas Cristobal MD [address] [place] [address] [address] [place], [place] [address] Phone Advice For Symptoms (please call Lambert from [facility] primary care to schedule pt for colon screening [phone]) Social History Tobacco Use Types Packs/Day Years [...] 9:30 AM EST Office Visit [facility] [address], [address] [place] [address] Marcos Santana APRN [address] [place] [address],[address] [place], [place] [id number] documented as of this encounter Visit Diagnoses Not on filedocumented in this encounter Care Teams Grating Machine Operator Relationship Specialty Start Date End Date Maricruz Burris CHIEF DOG LICENSE INSPECTOR [address] [place] [address] PCP - General Nurse Practitioner 07/06/14 11/29/14 Otilia Abreu [place] PCP - General Family Medicine 11/30/14 04/25/15 Julio Samayoa APRN [address] [place] [address] PCP - General nurse practitioner adult care 04/26/15 01/19/17 Julio Samayoa APRN [address] [place] [address] PCP - General Family Practice 01/20/17 01/19/18 Tiffanie Avery MD [address] [place] [address] PCP - General Family Medicine 01/20/18 10/28/23 Tiffanie Avery MD [address] [place] [address] PCP - General Family Medicine 12/22/23 Stew Hankins III, MD Gastroenterology 10/25/10 Kirby Kaur MD 613 [address] [address] [place] [address] Family Medicine 12/23/11 Nicholas Cristobal MD [address] [place] [address] Gastroenterology 08/08/14 Charlie Ayala PA-C [address] [place] [address] Physician Pilates Coordinator 02/05/15 Sully Castillo LPN 02/22/15 Florin Vicente MD [address] [facility] [address] [place] [address] Pulmonary Disease 01/19/18 Sindi Mcfarland MA 09/22/18 Mao Powell MD [address] [place] [address] [address] Orthopedic Surgery 05/22/21 Jeff Douglas MD [address] [place] [address] Orthopedic Surgery 07/18/21 documented as of this encounter
--- OUTSIDE RECORDS SUMMARY | 2024-12-28 10:39 | XMS_ITS | Encounter Summary ---
Author Organization [facility] Address [address] [place] [address] Care Team Providers Care Metal Spray Operator Name Role Phone Nhi AZUL MD, Morris Wilson Unavailable Haven vailaKirby Woods MD Unavailable [phone] Nicholas Cristobal MD Unavailable Doctor, No Primary Care Provider UnavailCharlie Greenberg PA-C Unavailable [phone] Sully Castillo LPN Unavailable Unavailable Julio Samayoa APRN Primary Care Provider Julio Samayoa APRN Primary Care Provider Florin Vicente MD Unavailable Tiffanie Avery MD Primary Care Provider [phone] Sindi Mcfarland MA Unavailable Unavailable Mao Powell MD Unavailable Jeff Douglas MD Unavailable Tiffanie Avery MD Primary Care Provider [phone] Reason for Visit * Reason Onset Date Comments Results - Test 02/22/2015 Encounter Details Date Type Department Care Team (Late st Contact Info) Description 02/22/2015 Telephone [facility] [address] [place] [address] [address] [place] [address] Sully Castillo LPN Results - [...] Upcoming Encounters Date Type Department Care Team ([facility] Contact Info) Description 06/12/2025 9:30 AM EST Office Visit [facility] [address], [address] [place] [address] Marcos Santana APRN [address] [place] [address],[address] [place] [address] documented as of this encounter Visit Diagnoses Not on filedocumented in this encounter Care Teams Metal Spray Operator Relationship Specialty Start Date End Date DoctorOtilia [place] PCP - General Family Medicine 11/30/14 04/25/15 Julio Samayoa APRN [address] [place] [address] PCP - General nurse practitioner adult care 04/26/15 01/19/17 Julio Samayoa APRN [address] [place] [address] PCP - General Family Practice 01/20/17 01/19/18 Tiffanei Avery MD [address] [place] [address] PCP - General Family Medicine 01/20/18 10/28/23 Tiffanie Avery MD [address] [facility] [place] [address] PCP - General Family Medicine 12/22/23 Stew Hankins III, MD Gastroenterology 10/25/10 Kirby Kaur MD [address] [place] [address] [place] [address] Family Medicine 12/23/11 Nicholas Cristobal MD [address] [place] [address] [place] [address] Gastroenterology 08/08/14 Charlie Ayala, TORIC [address] [place] [address] Physician Schedule Checker 02/05/15 Sully Castillo LPN 02/22/15 [place] [address] [place] [address] [place] [address] Pulmonary Disease 01/19/18 Sindi Mcfarland MA 09/22/18 Mao Powell MD [address] [place] [address] [place] [address] Orthopedic Surgery 05/22/21 Jeff Douglas MD [address] [place] [address] [address] Orthopedic Surgery 07/18/21 documented as of this encounter
--- OUTSIDE RECORDS SUMMARY | 2024-12-28 10:39 | XMS_ITS | Encounter Summary ---
Author Organization [facility] Address [address] [place] [address] Care Team Providers Care Cellular Biologist Name Role Phone Abhi Ruiz MD Primary Care Provider Unavailabl Rikki Stone DO Primary Care Provider [phone] Nhi AZUL MD, Morris Wilson Unavailable Haven Louie Pace MD Primary Care Provider Kirby Kaur MD Unavailable [phone] Maricruz Burris APRN Primary Care Provide r Nicholas Cristobal MD Unavailable Doctor, No Primary Care Provider UnavailCharlie Greenberg PA-C Unavailable Sully Castillo LPN Unavailable Unavailable Julio Samayoa APRN Primary Care Provider [phone] Julio Samayoa APRN Primary Care Provider [phone] Florin Vicente MD Unavailable Tiffanie Avery MD Primary Care Provider Sindi Mcfarland MA Unavailable Unavailable Mao Powell MD Unavailable [phone] Jeff Douglas MD Unavailable [phone] Tiffanie Avery MD Primary Care Provider Encounter [...] Upcoming Encounters Date Type Department Care Team ([facility] st Contact Info) Description 06/12/2025 9:30 AM EST Office Visit [facility] [address], [address] [place] [address] Marcos Santana APRN [address] [place] [address],[address] [place] [address] documented as of this encounter Visit Diagnoses Not on filedocumented in this encounter Care Teams Cellular Biologist Relationship Specialty Start Date End Date Abhi Ruiz MD PCP - General 12/29/07 10/04/09 Rikki Painter DO [address] [place] [address] PCP - General Family Medicine 10/05/09 06/12/11 Louie Purdy MD [address] [place] [address] PCP - General Family Medicine 06/13/11 07/05/14 Maricruz Burris APRN [address] [place] [address] PCP - General Nurse Practitioner 07/06/14 11/29/14 Otilia Abreu [place] PCP - General Family Medicine 11/30/14 04/25/15 Julio Samayoa APRN [address] [place] [address] PCP - General nurse practitioner adult care 04/26/15 01/19/17 Julio Samayoa APRN [address] [place] [address] PCP - General Family Practice 01/20/17 01/19/18 Tiffanie Avery MD [address] [place] [address] [place] [address] PCP - General Family Medicine 01/20/18 10/28/23 Tiffanie Avery MD [address] [place] [address] PCP - General Family Medicine 12/22/23 Stew Hankins III, MD Gastroenterology 10/25/10 Kirby Kaur MD [address] [place] [address] Family Medicine 12/23/11 Nicholas Cristobal MD [address] [place] [address] [address] [place] [address] Gastroenterology 08/08/14 Charlie Ayala, PA-C [address] [place] [address] [address] [place] [address] Physician Convenience Store Clerk 02/05/15 Sully Castillo LPN 02/22/15 [place] [address] [place] [address] [address] Pulmonary Disease 01/19/18 Sindi Mcfarland MA 09/22/18 Mao Powell MD [address] [place] [address] [address] Orthopedic Surgery 05/22/21 Jeff Douglas MD 613 [address] [address] [place] [address] Orthopedic Surgery 07/18/21 documented as of this encounter
--- OUTSIDE RECORDS SUMMARY | 2024-12-28 10:39 | XMS_ITS | Encounter Summary ---
Author Organization [facility] Address [address] [place] [address] Care Team Providers Care Farm Contractor Buyer Name Role Phone Rikki Painter DO Primary Care Provider [phone] Nhi AZUL MD, Morris Wilson Unavailable Haven lisailable Louie Purdy MD Primary Care Provider Kirby Kaur MD Unavailable [phone] Maricruz Burris APRN Primary Care Provide r Nicholas Cristobal MD Unavailable Doctor, No Primary Care Provider UnavailCharlie Greenberg PA-C Unavailable Sully Castillo LPN Unavailable Unavailable Julio Smaayoa APRN Primary Care Provider [phone] Julio Samayoa APRN Primary Care Provider [phone] Florin Vicente MD Unavailable Tiffanie Avery MD Primary Care Provider Sindi Mcfarland MA Unavailable Unavailable Mao Powell MD Unavailable [phone] Jeff Douglas MD Unavailable [phone] Tiffanie Avery MD Primary Care Provider Encounter Details Date Type Department Care Team (Late st Contact Info) Description 09/30/2010 Telephone [facility] [address] [place] [id number] Neelam Capone, RN Social History Tobacco Use [...] for his diabetes called to [facility]. He states that you said after the labs were resulted that you would send his medicine in for this. documented in this encounter Plan of Treatment Upcoming Encounters Date Type Department Care Team (Late st Contact Info) Description 06/12/2025 9:30 AM EST Office Visit [facility] [address] [place] [address] Marcos Santana, YANNICK [address] [place] [address],[address] [place] [address] documented as of this encounter Visit Diagnoses Diagnosis DM (diabetes mellitus) (HCC)- Primary Type II or unspecified type diabetes mellitus without mention of complication, not stated as uncontrolled documented in this encounter Care Teams Farm Contractor Buyer Relationship Specialty Start Date End Date Rikki Painter DO [address] [place] [address] PCP - General Family Medicine 10/05/09 06/12/11 Louie Purdy MD [address] [place] [address] PCP - General Family Medicine 06/13/11 07/05/14 Maricruz Burris APRN [address] [place] [address] PCP - General Nurse Practitioner 07/06/14 11/29/14 Otilia Abreu [place] PCP - General Family Medicine 11/30/14 04/25/15 Julio Samayoa APRN [address] [place] [address] PCP - General nurse practitioner adult care 04/26/15 01/19/17 Julio Samayoa APRN [address] [place] [address] PCP - General Family Practice 01/20/17 01/19/18 Tiffanie Avery MD [address] [place] [address] PCP - General Family Medicine 01/20/18 10/28/23 Tiffanie Avery MD [address] [place] [address] PCP - General Family Medicine 12/22/23 Stew Hankins III, MD Gastroenterology 10/25/10 Kirby Kaur MD [address] [place] [address] Family Medicine 12/23/11 Nicholas Cristobal MD [address] [place] [address] Gastroenterology 08/08/14 Charlie Ayala PA-C [address] [place] [address] [address] [place] [address] Physician Hl7 Developer 02/05/15 Sully Castillo LPN 02/22/15 Florin Vicente MD [address] [place] [address] [place] [address] Pulmonary Disease 01/19/18 Sindi Mcfarland MA 09/22/18 Mao Powell MD [address] [place] [address] [place] [address] Orthopedic Surgery 05/22/21 Jeff Douglas MD [address] [place] [address] [place] [address] Orthopedic Surgery 07/18/21 documented as of this encounter
--- OUTSIDE RECORDS SUMMARY | 2024-12-28 10:39 | XMS_ITS | Encounter Summary ---
Author Organization [facility] Address [address] [place] [address] Care Team Providers Care Family Resource Coordinator Name Role Phone Abhi Ruiz MD Primary Care Provider Unavailabl Rikki Stone DO Primary Care Provider [phone] Nhi AZUL MD, Morris Wilson Unavailable Haven Louie Pace MD Primary Care Provider Kirby Kaur MD Unavailable [phone] Maricruz Burris APRN Primary Care Provide r Nicholas Cristobal MD Unavailable Doctor, No Primary Care Provider UnavailCharlie Greenberg PA-C Unavailable Sully Castillo LPN Unavailable Unavailable Julio Samayoa APRN Primary Care Provider [phone] Julio Samayoa APRN Primary Care Provider [phone] Florin Vicente MD Unavailable Tiffanie Avery MD Primary Care Provider Sindi Mcfarland MA Unavailable Unavailable Mao Powell MD Unavailable [phone] Jeff Douglas MD Unavailable [phone] Tiffanie Avery MD Primary Care Provider Encounter [...] Upcoming Encounters Date Type Department Care Team ([facility] st Contact Info) Description 06/12/2025 9:30 AM EST Office Visit [facility] [address], [address] [place] [address] Marcos Santana APRN [address] [place] [address],[address] [place] [address] documented as of this encounter Visit Diagnoses Not on filedocumented in this encounter Care Teams Family Resource Coordinator Relationship Specialty Start Date End Date Abhi Ruiz MD PCP - General 12/29/07 10/04/09 Rikki Painter DO [address] [place] [address] PCP - General Family Medicine 10/05/09 06/12/11 Louie Purdy MD [address] [place] [address] PCP - General Family Medicine 06/13/11 07/05/14 Maricruz Burris APRN [address] [place] [address] PCP - General Nurse Practitioner 07/06/14 11/29/14 Otilia Abreu [place] PCP - General Family Medicine 11/30/14 04/25/15 Julio Samayoa APRN [address] [place] [address] PCP - General nurse practitioner adult care 04/26/15 01/19/17 Julio Samayoa APRN [address] [place] [facility] [place] [address] PCP - General Family Practice 01/20/17 01/19/18 Tiffanie Avery MD [address] [place] [address] [place] [address] PCP - General Family Medicine 01/20/18 10/28/23 Tiffanie Avery MD [address] [place] [address] PCP - General Family Medicine 12/22/23 Stew Hankins III, MD Gastroenterology 10/25/10 Kirby Kaur MD [address] [place] [address] Family Medicine 12/23/11 Nicholas Cristobal MD [address] [place] [address] [address] [place] [address] Gastroenterology 08/08/14 Charlie Ayala, PA-C [address] [place] [address] [address] [place] [address] Physician Pan Devulcanizer Helper 02/05/15 Sully Castillo LPN 02/22/15 [place] [address] [place] [address] [address] Pulmonary Disease 01/19/18 Sindi Mcfarland MA 09/22/18 Mao Powell MD [address] [place] [address] [address] Orthopedic Surgery 05/22/21 Jeff Douglas MD [address] [address] [place] [id number] Orthopedic Surgery 07/18/21 documented as of this encounter
--- OUTSIDE RECORDS SUMMARY | 2024-12-28 10:39 | XMS_ITS | Encounter Summary ---
Author Organization [facility] Address [address] [place] [address] Care Team Providers Care Material Distributor Name Role Phone Nhi AZUL MD, Morris Wilson Unavailable Haven lisailaKirby Woods MD Unavailable Nicholas Cristobal MD Unavailable Charlie Ayala PA-C Unavailable Sully Castillo LPN Unavailable Unavailable Florin Vicente MD Unavailable Tiffanie Avery MD Primary Care Provider [phone] Sindi Mcfarland MA Unavailable Unavailable Mao Powell MD Unavailable [phone] Jeff Douglas MD Unavailable [phone] Tiffanie Avery MD Primary Care Provider [phone] Encounter Details Date Type Department Care Team (Late st Contact Info) Description 09/22/2018 Orders Only [facility] [address] [facility] [facility] [address] [place] [address] Sindi Mcfarland MA JEAN-BAPTISTE (dyspnea [...] 9:30 AM EST Office Visit [facility] [place] [address] [place] [address], [address] [place] [address] Marcos Santana APRN [address] [place], [place] [address] [place], [place] [address] documented as of this encounter Visit Diagnoses Diagnosis JEAN-BAPTISTE (dyspnea on exertion) Other dyspnea and respiratory abnormality documented in this encounter Additional Health Concerns Assessment Noted Time PHQ-9 Depression Total Score: 0 12/25/19 10:45 AM EDT documented as of this encounter Care Teams Material Distributor Relationship Specialty Start Date End Date Tiffanie Avery MD [address] [place] [address] PCP - General Family Medicine 01/20/18 10/28/23 Tiffanie Avery MD [address] [place] [address] PCP - General Family Medicine 12/22/23 Stew Hankins III, MD Gastroenterology 10/25/10 Kirby Kaur MD [address] [place] [address] [address] [place] [address] Family Medicine 12/23/11 Nicholas Cristobal MD [address] [place] [address] Gastroenterology 08/08/14 Charlie Ayala PA-C [address] [place] [address] [address] [place] [address] Physician Track Patrol 02/05/15 Sully Castillo LPN 02/22/15 Florin Vicente MD [address] [facility] [address] [place] [id number] Pulmonary Disease 01/19/18 Sindi Mcfarland MA 09/22/18 Mao Powell MD [address] [place] [address] [place] [address] Orthopedic Surgery 05/22/21 Jeff Douglas MD [address] [place] [address] [address] Orthopedic Surgery 07/18/21 documented as of this encounter
--- OUTSIDE RECORDS SUMMARY | 2024-12-28 10:39 | XMS_ITS | Encounter Summary ---
Author Organization [facility] Address [address] [place] [address] Care Team Providers Care Senior Trial Attorney Name Role Phone Abhi Ruiz MD Primary Care Provider Unavailabl Rikki Stone DO Primary Care Provider [phone] Nhi AZUL MD, Morris Wilson Unavailable Haven Louie Pace MD Primary Care Provider Kirby Kaur MD Unavailable [phone] Maricruz Burris APRN Primary Care Provide r Nicholas Cristobla MD Unavailable Doctor, No Primary Care Provider UnavailCharlie Greenberg PA-C Unavailable Sully Castillo LPN Unavailable Unavailable Julio Samayoa APRN Primary Care Provider [phone] Julio Samayoa APRN Primary Care Provider [phone] Florin Vicente MD Unavailable Tiffanie Avery MD Primary Care Provider Sindi Mcfarland MA Unavailable Unavailable Mao Powell MD Unavailable [phone] Jeff Douglas MD Unavailable [phone] Tiffanie Avery MD Primary Care Provider Encounter [...] Upcoming Encounters Date Type Department Care Team ([facility] st Contact Info) Description 06/12/2025 9:30 AM EST Office Visit [facility] [address], [address] [place] [address] Marcos Santana APRN [address] [place] [address],[address] [place], [place] [id number] documented as of this encounter Visit Diagnoses Not on filedocumented in this encounter Care Teams Senior Trial Attorney Relationship Specialty Start Date End Date Abhi Ruiz MD PCP - General 12/29/07 10/04/09 Rikki Painter DO [address] [place] [address] PCP - General Family Medicine 10/05/09 06/12/11 Louie Purdy MD [address] [place] [address] PCP - General Family Medicine 06/13/11 07/05/14 Maricruz Burris, EXTRUSION DIE TEMPLATE MAKER [address] [place] [address] PCP - General Nurse Practitioner 07/06/14 11/29/14 Otilia Abreu [place] PCP - General Family Medicine 11/30/14 04/25/15 Julio Samayoa APRN [address] [place] [address] PCP - General nurse practitioner adult care 04/26/15 01/19/17 Julio Samayoa APRN [address] [place] [address] PCP - General Family Practice 01/20/17 01/19/18 Tiffanie Avery MD [address] [place] [address] [place] [address] PCP - General Family Medicine 01/20/18 10/28/23 Tiffanie Avery MD [address] [place] [address] [place] [address] PCP - General Family Medicine 12/22/23 Stew Hankins III, MD Gastroenterology 10/25/10 Kirby Kaur MD [address] [place] [address] [address] Family Medicine 12/23/11 Nicholas Cristobal MD [address] [place] [address] [address] [place] [address] Gastroenterology 08/08/14 Charlie Ayala, PA-C [address] [place] [address] [address] [place] [address] Physician Sanitation Worker Cleaning Machinery 02/05/15 Sully Castillo LPN 02/22/15 [place] [address] [place] [address] [address] Pulmonary Disease 01/19/18 Sindi Mcfarland MA 09/22/18 Mao Powell MD [address] [place] [address] [address] Orthopedic Surgery 05/22/21 Jeff Douglas MD 613 [address] [address] [place] [address] Orthopedic Surgery 07/18/21 documented as of this encounter
--- OUTSIDE RECORDS SUMMARY | 2024-12-28 10:39 | XMS_ITS | Encounter Summary ---
Author Organization [facility] Address [address] [place] [address] Care Team Providers Care Data Architect Name Role Phone Abhi Ruiz MD Primary Care Provider Unavailabl Rikki Stone DO Primary Care Provider [phone] Nhi AZUL MD, Morris Wilson Unavailable Haven Louie Pace MD Primary Care Provider Kirby Kaur MD Unavailable [phone] Maricruz Burris APRN Primary Care Provide r Nicholas Cristobal MD Unavailable Doctor, No Primary Care Provider UnavailCharlie Greenberg PA-C Unavailable [phone] Sully Castillo LPN Unavailable Unavailable Julio Samayoa APRN Primary Care Provider [phone] Julio Samayoa APRN Primary Care Provider [phone] Florin Vicente MD Unavailable Tiffanie Avery MD Primary Care Provider Sindi Mcfarland MA Unavailable Unavailable Mao Powell MD Unavailable [phone] Jeff Douglas MD Unavailable [phone] Tiffanie Avery MD Primary Care Provider Encounter [...] Upcoming Encounters Date Type Department Care Team ([facility] st Contact Info) Description 06/12/2025 9:30 AM EST Office Visit [facility] [address], [address] [place] [address] Marcos Santana APRN [address] [place] [address],[address] [place], [place] [id number] documented as of this encounter Visit Diagnoses Not on filedocumented in this encounter Care Teams Data Architect Relationship Specialty Start Date End Date Abhi Ruiz MD PCP - General 12/29/07 10/04/09 Rikki Painter DO [address] [place] [address] PCP - General Family Medicine 10/05/09 06/12/11 Louie Purdy MD [address] [place] [address] PCP - General Family Medicine 06/13/11 07/05/14 Maricruz Burris, CMA [address] [place] [address] PCP - General Nurse Practitioner 07/06/14 11/29/14 Otilia Abreu [place] PCP - General Family Medicine 11/30/14 04/25/15 Julio Samayoa APRN [address] [place] [address] PCP - General nurse practitioner adult care 04/26/15 01/19/17 Julio Samayoa APRN [address] [place] [address] PCP - General Family Practice 01/20/17 01/19/18 Tiffanie Avery MD [address] [place] [address] [place] [id number] PCP - General Family Medicine 01/20/18 10/28/23 Tiffanie Avery MD [address] [place] [address] [place] [id number] PCP - General Family Medicine 12/22/23 Stew Hankins III, MD Gastroenterology 10/25/10 Kirby Kaur MD [address] [place] [address] [address] Family Medicine 12/23/11 Nicholas Cristobal MD [address] [place] [address] [address] [place] [address] Gastroenterology 08/08/14 Charlie Ayala, PA-C [address] [place] [address] [address] [place] [address] Physician Fountain Attendant 02/05/15 Sully Castillo LPN 02/22/15 [place] [address] [place] [address] [address] Pulmonary Disease 01/19/18 Sindi Mcfarland MA 09/22/18 Mao Powell MD [address] [place] [address] [address] Orthopedic Surgery 05/22/21 Jeff Douglas MD [address] [address] [place] [address] Orthopedic Surgery 07/18/21 documented as of this encounter
--- OUTSIDE RECORDS SUMMARY | 2024-12-28 10:39 | XMS_ITS | Encounter Summary ---
Author Organization [facility] Address [address] [place] [address] Care Team Providers Care Residence Leasing Agent Name Role Phone Nhi AZUL MD, Morris Wilson Unavailable Haven vailable Kirby Kaur MD Unavailable [phone] Nicholas Cristobal MD Unavailable Doctor, No Primary Care Provider UnavailCharlie Greenberg PA-C Unavailable Sully Castillo LPN Unavailable Unavailable Julio Samayoa APRN Primary Care Provider [phone] Julio Samayoa APRN Primary Care Provider Florin Vicente MD Unavailable Tiffanie Avery MD Primary Care Provider [phone] Sindi Mcfarland MA Unavailable Unavailable Mao Powell MD Unavailable [phone] Jeff Douglas MD Unavailable [phone] Tiffanie Avery MD Primary Care Provider [phone] Reason for Visit * Reason Onset Date Comments Medication Clarification 03/15/2015 NEXT O/ V 03/19/15 Encounter Details Date Type Department Care Team (Late st Contact Info) Description 03/15/2015 Telephone [facility] [address] [place] [address] [address] [place] [address] Nicholas Cristobal MD [address] [place] [address] [address] [place] [address] Medication Clarification (NEXT O/V 03/19/15) Social History [...] AM EST Office Visit [facility] [address], [address] [place] [address] Marcos Santana APRN [address] [place] [address],[address] [place], [place] [address] documented as of this encounter Visit Diagnoses Diagnosis Diarrhea- Primary documented in this encounter Care Teams Residence Leasing Agent Relationship Specialty Start Date End Date Doctor, SHADI Loomis PCP - General Family Medicine 11/30/14 04/25/15 Julio Samayoa APRN [address] [place] [address] PCP - General nurse practitioner adult care 04/26/15 01/19/17 Julio Samayoa APRN [facility] [address] [place], [place] [address] PCP - General Family Practice 01/20/17 01/19/18 Tiffanie Avery MD [address] [place] [address] PCP - General Family Medicine 01/20/18 10/28/23 Tiffanie Avery MD [address] [place] [address] PCP - General Family Medicine 12/22/23 Stew Hankins III, MD Gastroenterology 10/25/10 Kirby Kaur MD [address] [place], [place] [address] [place] [address] Family Medicine 12/23/11 Nicholas Cristobal MD [address] [place] [address] [address] [place] [address] Gastroenterology 08/08/14 Charlie Ayala, PAMindiC [address] [place] [address] Physician Getter Operator 02/05/15 Sully Castillo LPN 02/22/15 Florin Vicente MD [address] [place] [address] [address] [place] [address] Pulmonary Disease 01/19/18 Sindi Mcfarland MA 09/22/18 Mao Powell MD [address] [place] [address] Orthopedic Surgery 05/22/21 Jeff Douglas MD [address] [place] [address] Orthopedic Surgery 07/18/21 documented as of this encounter
--- OUTSIDE RECORDS SUMMARY | 2024-12-28 10:39 | XMS_ITS | Encounter Summary ---
Author Organization [facility] Address [address] [place] [address] Care Team Providers Care Production Posting Clerk Name Role Phone Nhi AZUL MD, Morris Wilson Unavailable Haven lisailable Kirby Kaur MD Unavailable [phone] Nicholas Cristobal MD Unavailable Charlie Ayala PA-C Unavailable Sully Castillo LPN Unavailable Unavailable Florin Vicente MD Unavailable Tiffanie Avery MD Primary Care Provider [phone] Sindi Mcfarland MA Unavailable Unavailable Mao Powell MD Unavailable [phone] Jeff Douglas MD Unavailable [phone] Tiffanie Avery MD Primary Care Provider [phone] Reason for Visit * Reason Onset Date Comments Other 08/12/2021 med request Encounter Details Date Type Department Care Team (Late st Contact Info) Description 08/12/2021 Telephone [facility] [address] [place] [address] [place] [address] Tiffanie Avery MD [address] [place] [address] Other (med request) Social History Tobacco [...] supposed to have a new script to pickle cutter at [facility]. He says from last . Please advise. Thank you. documented in this encounter Plan of Treatment Upcoming Encounters Date Type Department Care Team (Late st Contact Info) Description 06/12/2025 9:30 AM EST Office Visit [facility] [address] [place] [address] Marcos Santana, YANNICK [address] [place] [address],[address] [place] [address] documented as of this encounter Visit Diagnoses Not on filedocumented in this encounter Additional Health Concerns Assessment Noted Time PHQ-9 Depression Total Score: 0 04/01/20 19 2:31 PM EST documented as of this encounter Care Teams Production Posting Clerk Relationship Specialty Start Date End Date Tiffanie Avery MD [address] [place] [address] PCP - General Family Medicine 01/20/18 10/28/23 Tiffanie Avery MD [address] [place] [address] PCP - General Family Medicine 12/22/23 Stew Hankins III, MD Gastroenterology 10/25/10 Kirby Kaur MD [address] [place] [address] [place] [address] Family Medicine 12/23/11 Nicholas Cristobal MD [address] [place] [address] [place] [address] Gastroenterology 08/08/14 Charlie Ayala PA-C [address] [place] [address] [place] [address] Physician Lab Rep 02/05/15 Sully Castillo LPN 02/22/15 [place] [address] [place] [address] [place] [address] Pulmonary Disease 01/19/18 Sindi Mcfarland MA 09/22/18 Mao Powell MD [address] [place] [address] [place] [address] Orthopedic Surgery 05/22/21 Jeff Douglas MD [address] [place] [address] [place] [address] Orthopedic Surgery 07/18/21 documented as of this encounter
--- OUTSIDE RECORDS SUMMARY | 2024-12-28 10:39 | XMS_ITS | Encounter Summary ---
Author Organization [facility] Address [address] [place] [address] Care Team Providers Care Linotype Machinist Apprentice Name Role Phone Nhi AZUL MD, Morris Wilson Unavailable Haven vailable Louie Purdy MD Primary Care Provider [phone] Kirby Kaur MD Unavailable [phone] Maricruz Burris APRN Primary Care Provide r Nicholas Cristobal MD Unavailable Doctor, No Primary Care Provider UnavailCharlie Greenberg PA-C Unavailable Sully Castillo LPN Unavailable Unavailable Julio Samayoa APRN Primary Care Provider [phone] Julio Samayoa APRN Primary Care Provider [phone] Florin Vicente MD Unavailable Tiffanie Avery MD Primary Care Provider Sindi Mcfarland MA Unavailable Unavailable Mao Powell MD Unavailable [phone] Jeff Douglas MD Unavailable [phone] Tiffanie Avery MD Primary Care Provider Encounter Details Date Type Department Care Team (Latest Contact Info) Description 04/07/2014 Transcribe Orders [facility] [address] [place] [address] Louie Purdy MD [address] [place] [address] Diabetes mellitus (Primary Dx); Weight loss; Abdominal [...] AM EST Office Visit [facility] [address], [address] [place] [address] Marcos Santana, YANNICK [address] [place], [place] [address] [place] [address] documented as of this encounter Procedures [...] Anorexia documented in this encounter Care Teams Linotype Machinist Apprentice Relationship Specialty Start Date End Date Louie Purdy MD [address] [place] [address] PCP - General Family Medicine 06/13/11 07/05/14 Maricruz Burris APRN [address] [place] [address] PCP - General Nurse Practitioner 07/06/14 11/29/14 Otilia Abreu [place] PCP - General Family Medicine 11/30/14 04/25/15 Julio Samayoa APRN [address] [place] [address] PCP - General nurse practitioner adult care 04/26/15 01/19/17 Julio Samayoa APRN [address] [place] [address] PCP - General Family Practice 01/20/17 01/19/18 Tiffanie Avery MD [address] [place] [address] PCP - General Family Medicine 01/20/18 10/28/23 Tiffanie Avery MD [address] [place] [address] PCP - General Family Medicine 12/22/23 Stew Hankins III, MD Gastroenterology 10/25/10 Kirby Kaur MD [address] [place] [address] [address] [place] [address] Family Medicine 12/23/11 Nicholas Cristobal MD [address] [place] [address] Gastroenterology 08/08/14 Charlie Ayala PA-C [address] [place] [address] [address] [place] [address] Physician Block Cuber 02/05/15 Sully Castillo LPN 02/22/15 Florin Vicente MD [address] [place] [address] [place] [address] Pulmonary Disease 01/19/18 Sindi Mcfarland MA 09/22/18 Mao Powell MD [address] [place] [address] [place] [address] Orthopedic Surgery 05/22/21 Jeff Douglas MD [address] [place] [address] [place] [address] Orthopedic Surgery 07/18/21 documented as of this encounter
--- OUTSIDE RECORDS SUMMARY | 2024-12-28 10:39 | XMS_ITS | Encounter Summary ---
Author Organization [facility] Address [address] [place] [address] Care Team Providers Care Lap Maker Name Role Phone Nhi AZUL MD, Morris Wilson Unavailable Haven liasilaKirby Woods MD Unavailable Nicholas Cristobal MD Unavailable Charlie Ayala PA-C Unavailable Sully Castillo LPN Unavailable Unavailable Florin Vicente MD Unavailable Tiffanie Avery MD Primary Care Provider [phone] Sindi Mcfarland MA Unavailable Unavailable Mao [place] MD Unavailable [phone] Jeff Douglas MD Unavailable [phone] Tiffanie Avery MD Primary Care Provider [phone] Reason for Visit * Reason Onset Date Comments Other 06/21/2018 Encounter Details Date Type Department Care Team (Late st Contact Info) Description 06/21/2018 Telephone [facility] [address] [place] [address] Tiffanie Avery MD [address] [place] [address] Other Social History Tobacco Use Types [...] AM EST Office Visit [facility] [address] [place] [address] Marcos Santana APRN [address] [place] [address],[address] [place] [id number] documented as of this encounter Visit Diagnoses Diagnosis Vitamin D deficiency- Primary Unspecified vitamin D deficiency documented in this encounter Additional Health Concerns Assessment Noted Time PHQ-9 Depression Total Score: 0 12/25/19 18 10:45 AM EDT documented as of this encounter Care Teams Lap Maker Relationship Specialty Start Date End Date Tiffanie Avery MD [address] [place] [address] PCP - General Family Medicine 01/20/18 10/28/23 Tiffanie Avery MD [address] [place] [address] PCP - General Family Medicine 12/22/23 Stew Hankins III, MD Gastroenterology 10/25/10 Kirby Kaur MD [address] [place] [address] [address] [place] [address] Family Medicine 12/23/11 Nicholas Cristobal MD [address] [place] [address] [place] [address] Gastroenterology 08/08/14 Charlie Ayala PA-C [address] [place] [address] [place] [address] Physician Hotel Operation Manager 02/05/15 Sully Castillo LPN 02/22/15 Florin Vicente MD [address] [facility] [place] [address] Pulmonary Disease 01/19/18 Sindi Mcfarland MA 09/22/18 Mao Powell MD [address] [place] [address] [place] [address] Orthopedic Surgery 05/22/21 Jeff Douglas MD [address] [place] [address] [address] Orthopedic Surgery 07/18/21 documented as of this encounter
--- OUTSIDE RECORDS SUMMARY | 2024-12-28 10:39 | XMS_ITS | Encounter Summary ---
Author Organization [facility] Address [address] [place] [id number] Care Team Providers Care Longwall Shearer Operator Name Role Phone Nhi AZUL MD, Morris Wilson Unavailable Haven vailaKirby Woods MD Unavailable [phone] Nicholas Cristobal MD Unavailable Doctor, No Primary Care Provider UnavailCharlie Greenberg PA-C Unavailable [phone] Sully Castillo LPN Unavailable Unavailable Julio Samayoa APRN Primary Care Provider Julio Samayoa APRN Primary Care Provider [phone] Florin Vicente MD Unavailable Tiffanie Avery MD Primary Care Provider Sindi Mcfarland MA Unavailable Unavailable Mao Powell MD Unavailable [phone] Jeff Douglas MD Unavailable [phone] Tiffanie Avery MD Primary Care Provider [phone] Reason for Visit * Reason Onset Date Comments Results - Lab 03/23/2015 Encounter Details Date Type Department Care Team (Late st Contact Info) Description 03/23/2015 Telephone [facility] [address] [place] [address] Elva Hsieh RN Results - Lab Social History Tobacco [...] . Ferrous sulfate 325mg called to sunny puente. * Telephone Encounter - Ervin Ayala - [...] 9:30 AM EST Office Visit [facility] [address], [address] [place] [address] Marcos Santana APRN [address] [place] [address] [place], [place] [id number] documented as of this encounter Visit Diagnoses Not on filedocumented in this encounter Care Teams Longwall Shearer Operator Relationship Specialty Start Date End Date Doctor, SHADI Loomis PCP - General Family Medicine 11/30/14 04/25/15 Julio Samayoa APRN [address] [facility] [place] [address] PCP - General nurse practitioner adult care 04/26/15 01/19/17 Julio Samayoa APRN [address] [place] [address] PCP - General Family Practice 01/20/17 01/19/18 Tiffanie Avery MD [address] [place] [id number] PCP - General Family Medicine 01/20/18 10/28/23 Tiffanie Avery MD [address] [place] [address] PCP - General Family Medicine 12/22/23 Stew Hankins III, MD Gastroenterology 10/25/10 Kirby Kaur MD [address] [address] [place] [address] Family Medicine 12/23/11 Nicholas Cristobal MD [address] [place] [address] Gastroenterology 08/08/14 Charlie Ayala PA-C [address] [place], [place] [address] Physician Workplace Relations Adviser 02/05/15 Sully Castillo LPN 02/22/15 Florin Vicente MD [address] [facility] [address] [place], [place] [address] Pulmonary Disease 01/19/18 Sindi Mcfarland MA 09/22/18 Mao Powell MD [address] [place] [address] Orthopedic Surgery 05/22/21 Jeff Douglas MD [address] [place] [address] Orthopedic Surgery 07/18/21 documented as of this encounter
--- OUTSIDE RECORDS SUMMARY | 2024-12-28 10:39 | XMS_ITS | Encounter Summary ---
Author Organization [facility] Address [address] [place] [address] Care Team Providers Care Bottom Stainer Name Role Phone Abhi Ruiz MD Primary Care Provider Unavailabl Rikki Stone DO Primary Care Provider [phone] Nhi AZUL MD, Morris Wilson Unavailable Haven Louie Pace MD Primary Care Provider Kirby Kaur MD Unavailable [phone] Maricruz Burris APRN Primary Care Provide r Nicholas Cristobal MD Unavailable Doctor, No Primary Care Provider UnavailCharlie Greenberg PA-C Unavailable Sully Castillo LPN Unavailable Unavailable Julio Samayoa APRN Primary Care Provider [phone] Julio Samayoa APRN Primary Care Provider [phone] Florin Vicente MD Unavailable Tiffanie Avery MD Primary Care Provider Sindi Mcfarland MA Unavailable Unavailable Mao [place] MD Unavailable [phone] Jeff Douglas MD Unavailable [phone] Tiffanie Avery MD Primary Care Provider Encounter [...] AM EST Office Visit [facility] [address], [address] [place] [address] Marcos Santana APRN [address] [place] [address],[address] [place], [place] [id number] documented as of this encounter Visit Diagnoses Not on filedocumented in this encounter Care Teams Bottom Stainer Relationship Specialty Start Date End Date Abhi Ruiz MD PCP - General 12/29/07 10/04/09 Rikki Painter DO [address] [place] [address] PCP - General Family Medicine 10/05/09 06/12/11 Louie Purdy MD [address] [place] [address] PCP - General Family Medicine 06/13/11 07/05/14 Maricruz Burris, TECHNOLOGY PROGRAM MANAGER [address] [place] [address] PCP - General Nurse Practitioner 07/06/14 11/29/14 Otilia Abreu [place], [place] PCP - General Family Medicine 11/30/14 04/25/15 Julio Samayoa APRN [address] [place] [address] PCP - General nurse practitioner adult care 04/26/15 01/19/17 Julio Samayoa APRN [address] [place] [address] PCP - General Family Practice 01/20/17 01/19/18 Tiffanie Avery MD [address] [place] [address] [place] [id number] PCP - General Family Medicine 01/20/18 10/28/23 Tiffanie Avery MD [address] [place] [address] [place] [id number] PCP - General Family Medicine 12/22/23 Stew Hankins III, MD Gastroenterology 10/25/10 Kirby Kaur MD [address] [place] [address] [address] Family Medicine 12/23/11 Nicholas Cristobal MD [address] [place] [address] [address] [place] [address] Gastroenterology 08/08/14 Charlie Ayala, PA-C [address] [place] [address] [address] [place] [address] Physician Steward/Stewardess Night 02/05/15 Sully Castillo LPN 02/22/15 [place] [address] [place] [address] [address] Pulmonary Disease 01/19/18 Sindi Mcfarland MA 09/22/18 Mao Powell MD [address] [place] [address] [address] Orthopedic Surgery 05/22/21 Jeff Douglas MD 613 [address] [address] [place] [address] Orthopedic Surgery 07/18/21 documented as of this encounter
--- OUTSIDE RECORDS SUMMARY | 2024-12-28 10:39 | XMS_ITS | Encounter Summary ---
Author Organization [facility] Address [address] [place] [address] Care Team Providers Care Wood Carving Machine Operator Name Role Phone Abhi Ruiz MD Primary Care Provider Unavailabl Rikki Stone DO Primary Care Provider [phone] Nhi AZUL MD, Morris Wilson Unavailable Haven Louie Pace MD Primary Care Provider Kirby Kaur MD Unavailable [phone] Maricruz Burris APRN Primary Care Provide r Nicholas Cristobal MD Unavailable Doctor, No Primary Care Provider UnavailCharlie Greenberg PA-C Unavailable Sully Castillo LPN Unavailable Unavailable Julio Samayoa APRN Primary Care Provider [phone] Julio Samayoa APRN Primary Care Provider [phone] Florin Vicente MD Unavailable Tiffanie Avery MD Primary Care Provider Sindi Mcfarland MA Unavailable Unavailable Mao Powell MD Unavailable [phone] Jeff Douglas MD Unavailable [phone] Tiffanie Avery MD Primary Care Provider [phone] Encounter Details Date Type Department Care Team [...] AM EST Office Visit [facility] [address], [address] [place] [address] Marcos Santana APRN [address] [place] [address],[address] [place], [place] [id number] documented as of this encounter Visit Diagnoses Not on filedocumented in this encounter Care Teams Wood Carving Machine Operator Relationship Specialty Start Date End Date Abhi Ruiz MD PCP - General 12/29/07 10/04/09 Rikki Painter DO [address] [place] [address] PCP - General Family Medicine 10/05/09 06/12/11 Louie Purdy MD [address] [place] [address] PCP - General Family Medicine 06/13/11 07/05/14 Maricruz Burris, RUBY ON RAILS CONSULTANT [address] [place] [address] PCP - General Nurse Practitioner 07/06/14 11/29/14 Otilia Abreu [place], [place] PCP - General Family Medicine 11/30/14 04/25/15 Julio Samayoa APRN [address] [place] [address] PCP - General nurse practitioner adult care 04/26/15 01/19/17 Julio Samayoa APRN [address] [place] [address] PCP - General Family Practice 01/20/17 01/19/18 Tiffanie Avery MD [address] [place] [address] [place] [address] PCP - General Family Medicine 01/20/18 10/28/23 Tiffanie Avery MD [address] [place] [address] [place] [address] PCP - General Family Medicine 12/22/23 Stew Hankins III, MD Gastroenterology 10/25/10 Kirby Kaur MD [address] [place] [address] [address] Family Medicine 12/23/11 Nicholas Cristobal MD [address] [place] [address] [address] [place] [address] Gastroenterology 08/08/14 Charlie Ayala, PA-C [address] [place] [address] [address] [place] [address] Physician Seam Checker 02/05/15 Sully Castillo LPN 02/22/15 [place] [address] [place] [address] [address] Pulmonary Disease 01/19/18 Sindi Mcfarland MA 09/22/18 Mao Powell MD [address] [place] [address] [address] Orthopedic Surgery 05/22/21 Jeff Douglas MD 613 [address] [address] [place] [address] Orthopedic Surgery 07/18/21 documented as of this encounter
--- OUTSIDE RECORDS SUMMARY | 2024-12-28 10:39 | XMS_ITS | Encounter Summary ---
Author Organization [facility] Address [address] [place] [address] Care Team Providers Care Senior Biostatistician Name Role Phone Abhi Ruiz MD Primary Care Provider Unavailabl Rikki Stone DO Primary Care Provider [phone] Nhi AZUL MD, Morris Wilson Unavailable Haven Louie Pace MD Primary Care Provider Kirby Kaur MD Unavailable [phone] Maricruz Burris APRN Primary Care Provide r Nicholas Cristobal MD Unavailable Doctor, No Primary Care Provider UnavailCharlie Greenberg PA-C Unavailable Sully Castillo LPN Unavailable Unavailable Julio Samayoa APRN Primary Care Provider [phone] Julio Samayoa APRN Primary Care Provider [phone] Florin Vicente MD Unavailable Tiffanie Avery MD Primary Care Provider Sindi Mcfarland MA Unavailable Unavailable Mao Powell MD Unavailable [phone] Jeff Douglas MD Unavailable [phone] Tiffanie Avery MD Primary Care Provider Encounter [...] [facility] Contact Info) Description 06/12/2025 9:30 AM EST Office Visit [facility] [address], [address] [place] [address] Marcos Santana APRN [address] [place] [address],[address] [place], [place] [id number] documented as of this encounter Visit Diagnoses Not on filedocumented in this encounter Care Teams Senior Biostatistician Relationship Specialty Start Date End Date Abhi Ruiz MD PCP - General 12/29/07 10/04/09 Rikki Painter DO [address] [place] [address] PCP - General Family Medicine 10/05/09 06/12/11 Louie Purdy MD [address] [place] [address] PCP - General Family Medicine 06/13/11 07/05/14 Maricruz Burris, CURTAIN CUTTER [address] [place] [address] PCP - General Nurse Practitioner 07/06/14 11/29/14 Otilia Abreu [place], [place] PCP - General Family Medicine 11/30/14 04/25/15 Julio Samayoa APRN [address] [place] [address] PCP - General nurse practitioner adult care 04/26/15 01/19/17 Julio Samayoa APRN [address] [place] [address] PCP - General Family Practice 01/20/17 01/19/18 Tiffanie Avery MD [address] [place] [address] [place] [address] PCP - General Family Medicine 01/20/18 10/28/23 Tiffanie Avery MD [address] [place] [address] [place] [address] PCP - General Family Medicine 12/22/23 Stew Hankins III, MD Gastroenterology 10/25/10 Kirby Kaur MD [address] [place] [address] [address] Family Medicine 12/23/11 Nicholas Cristobal MD [address] [place] [address] [address] [place] [address] Gastroenterology 08/08/14 Charlie Ayala, PA-C [address] [place] [address] [address] [place] [address] Physician Cane Cutter 02/05/15 Sully Castillo LPN 02/22/15 [place] [address] [place] [address] [address] Pulmonary Disease 01/19/18 Sindi Mcfarland MA 09/22/18 Mao Pwoell MD [address] [place] [address] [address] Orthopedic Surgery 05/22/21 eJff Douglas MD 613 [address] [address] [place] [address] Orthopedic Surgery 07/18/21 documented as of this encounter
--- OUTSIDE RECORDS SUMMARY | 2024-12-28 10:39 | XMS_ITS | Encounter Summary ---
Author Organization [facility] Address [address] [place] [address] Care Team Providers Care Oncology Technician Name Role Phone Abhi Ruiz MD Primary Care Provider Unavailabl Rikki Stone DO Primary Care Provider [phone] Nhi AZUL MD, Morris Wilson Unavailable Haven Louie Pace MD Primary Care Provider [phone] Kirby Kaur MD Unavailable [phone] Maricruz Burris APRN Primary Care Provide r Nicholas Cristobal MD Unavailable Doctor, No Primary Care Provider UnavailCharlie Greenberg PA-C Unavailable Sully Castillo LPN Unavailable Unavailable Julio Samayoa APRN Primary Care Provider [phone] Julio Samayoa APRN Primary Care Provider [phone] Florin Vicente MD Unavailable Tiffanie Avery MD Primary Care Provider Sindi Mcfarland MA Unavailable Unavailable Mao Powell MD Unavailable [phone] Jeff Douglas MD Unavailable [phone] Tiffanie Avery MD Primary Care Provider [phone] Encounter Details Date Type Department Care Team [...] Upcoming Encounters Date Type Department Care Team ([facility] st Contact Info) Description 06/12/2025 9:30 AM EST Office Visit [facility] [address], [address] [place] [address] Marcos Santana APRN [address] [place] [address],[address] [place], [place] [id number] documented as of this encounter Visit Diagnoses Not on filedocumented in this encounter Care Teams Oncology Technician Relationship Specialty Start Date End Date Abhi Ruiz MD PCP - General 12/29/07 10/04/09 Rikki Painter DO [address] [place] [address] PCP - General Family Medicine 10/05/09 06/12/11 Louie Purdy MD [address] [place] [address] PCP - General Family Medicine 06/13/11 07/05/14 Maricruz Burris, FREIGHT DELIVERY DRIVER [address] [place] [address] PCP - General Nurse Practitioner 07/06/14 11/29/14 Otilia Abreu [place], [place] PCP - General Family Medicine 11/30/14 04/25/15 Julio Samayoa APRN [address] [place] [address] PCP - General nurse practitioner adult care 04/26/15 01/19/17 Julio Samayoa APRN [address] [place] [address] PCP - General Family Practice 01/20/17 01/19/18 Tiffanie Avery MD [address] [place] [address] [place] [address] PCP - General Family Medicine 01/20/18 10/28/23 Tiffanie Avery MD [address] [place] [address] [place] [address] PCP - General Family Medicine 12/22/23 Stew Hankins III, MD Gastroenterology 10/25/10 Kirby Kaur MD [address] [place] [address] [address] Family Medicine 12/23/11 Nicholas Crsitobal MD [address] [place] [address] [address] [place] [address] Gastroenterology 08/08/14 Charlie Ayala, PA-C [address] [place] [address] [address] [place] [address] Physician Customer Experience Analyst 02/05/15 Sully Castillo LPN 02/22/15 [place] [address] [place] [address] [address] Pulmonary Disease 01/19/18 Sindi Mcfarland MA 09/22/18 Mao Powell MD [address] [place] [address] [address] Orthopedic Surgery 05/22/21 Jeff Douglas MD 613 [address] [address] [place] [address] Orthopedic Surgery 07/18/21 documented as of this encounter
--- OUTSIDE RECORDS SUMMARY | 2024-12-28 10:39 | XMS_ITS | Encounter Summary ---
Author Organization [facility] Address [address] [place] [address] Care Team Providers Care Traffic I Manager Name Role Phone Nhi AZUL MD, Morris Wilson Unavailable Haven vailable Kirby Kaur MD Unavailable [phone] Nicholas Cristobal MD Unavailable Doctor, No Primary Care Provider UnavailCharlie Greenberg PA-C Unavailable Sully Castillo LPN Unavailable Unavailable Julio Samayoa APRN Primary Care Provider [phone] Julio Samayoa APRN Primary Care Provider Florin Vicente MD Unavailable Tiffanie Avery MD Primary Care Provider [phone] Sindi Mcfarland MA Unavailable Unavailable Mao Powell MD Unavailable Jeff Douglas MD Unavailable Tiffanie Avery MD Primary Care Provider [phone] Encounter Details Date Type Department Care Team (Late st Contact Info) Description 03/16/2015 Orders Only [facility] [address] [place] [address] Debbie Urias LPN Occult blood [...] 9:30 AM EST Office Visit [facility] [address], [address] [place] [address] Marcos Santana APRN [address] [place] [address],[address] [place] [address] documented as of this encounter Visit Diagnoses Diagnosis Occult blood positive stool- Primary Nonspecific abnormal finding in stool contents documented in this encounter Care Teams Traffic I Manager Relationship Specialty Start Date End Date Doctor, [place], [place] PCP - General Family Medicine 11/30/14 04/25/15 Julio Samayoa APRN [address] [place] [address] PCP - General nurse practitioner adult care 04/26/15 01/19/17 Julio Samayoa APRN [address] [place] [address] PCP - General Family Practice 01/20/17 01/19/18 Tiffanie Avery MD [address] [place] [address] PCP - General Family Medicine 01/20/18 10/28/23 Tiffanie Avery MD [address] [place] [address] PCP - General Family Medicine 12/22/23 Stew Hankins III, MD Gastroenterology 10/25/10 Kirby Kaur MD [address] [place] [address] [address] Family Medicine 12/23/11 Nicholas Cristobal MD [address] [place] [address] [address] [place] [address] Gastroenterology 08/08/14 Charlie Ayala PA-C [address] [place] [address] [address] [place] [address] Physician Emergency Medical Tech 02/05/15 Sully Castillo LPN 02/22/15 [place] [address] [place] [address] [address] Pulmonary Disease 01/19/18 Sindi Mcfarland MA 09/22/18 Mao Powell MD [address] [place] [address] [address] Orthopedic Surgery 05/22/21 Jeff Douglas MD [address] [place] [address] [address] Orthopedic Surgery 07/18/21 documented as of this encounter
--- OUTSIDE RECORDS SUMMARY | 2024-12-28 10:39 | XMS_ITS | Encounter Summary ---
Author Organization [facility] Address [address] [place] [address] Care Team Providers Care Taper And Floater Name Role Phone Abhi Ruiz MD Primary Care Provider Unavailabl Rikki Stone DO Primary Care Provider [phone] Nhi AZUL MD, Morris Wilson Unavailable Haven Louie Pace MD Primary Care Provider Kirby Kaur MD Unavailable [phone] Maricruz Burris APRN Primary Care Provide r Nicholas Cristobal MD Unavailable Doctor, No Primary Care Provider UnavailCharlie Greenberg PA-C Unavailable Sully Castillo LPN Unavailable Unavailable Julio Samayoa APRN Primary Care Provider [phone] Julio Samayoa APRN Primary Care Provider [phone] Florin Vicente MD Unavailable Tiffanie Avery MD Primary Care Provider [phone] Sindi Mcfarland MA Unavailable Unavailable Mao Powell MD Unavailable [phone] Jeff Douglas MD Unavailable [phone] Tiffanie Avery MD Primary Care Provider Encounter [...] Encounters Date Type Department Care Team ([facility] st Contact Info) Description 06/12/2025 9:30 AM EST Office Visit [facility] [address], [address] [place] [address] Marcos Santana APRN [address] [place] [address],[address] [place], [place] [id number] documented as of this encounter Visit Diagnoses Not on filedocumented in this encounter Care Teams Taper And Floater Relationship Specialty Start Date End Date Abhi Ruiz MD PCP - General 12/29/07 10/04/09 Rikki Painter DO [address] [place] [address] PCP - General Family Medicine 10/05/09 06/12/11 Louie Purdy MD [address] [place] [address] PCP - General Family Medicine 06/13/11 07/05/14 Maricruz Burris, FISH SALTER [address] [place] [address] PCP - General Nurse Practitioner 07/06/14 11/29/14 Otilia Abreu [place], [place] PCP - General Family Medicine 11/30/14 04/25/15 Julio Samayoa APRN [address] [place] [address] PCP - General nurse practitioner adult care 04/26/15 01/19/17 Julio Samayoa APRN [address] [place] [address] PCP - General Family Practice 01/20/17 01/19/18 Tiffanie Avery MD [address] [place] [address] [place] [address] PCP - General Family Medicine 01/20/18 10/28/23 Tiffanie Avery MD [address] [place] [address] [place] [address] PCP - General Family Medicine 12/22/23 Stew Hankins III, MD Gastroenterology 10/25/10 Kirby Kaur MD [address] [place] [address] [address] Family Medicine 12/23/11 Nicholas Cristobal MD [address] [place] [address] [address] [place] [address] Gastroenterology 08/08/14 Charlie Ayala, PA-C [address] [place] [address] [address] [place] [address] Physician Financial Systems Director 02/05/15 Sully Castillo LPN 02/22/15 [place] [address] [place] [address] [address] Pulmonary Disease 01/19/18 Sindi Mcfarland MA 09/22/18 Mao Powell MD [address] [place] [address] [address] Orthopedic Surgery 05/22/21 Jeff Douglas MD 613 [address] [address] [place] [address] Orthopedic Surgery 07/18/21 documented as of this encounter
--- OUTSIDE RECORDS SUMMARY | 2024-12-28 10:39 | XMS_ITS | Encounter Summary ---
Author Organization [facility] Address [address] [place] [address] Care Team Providers Care Customer Service Consultant Name Role Phone Abhi Ruiz MD Primary Care Provider Unavailabl Rikki Stone DO Primary Care Provider [phone] Nhi AZUL MD, Morris Wilson Unavailable Haven Louie Pace MD Primary Care Provider Kirby Kaur MD Unavailable [phone] Maricruz Burris APRN Primary Care Provide r Nicholas Cristobal MD Unavailable Doctor, No Primary Care Provider UnavailCharlie Greenberg PA-C Unavailable Sully Castillo LPN Unavailable Unavailable Julio Samayoa APRN Primary Care Provider [phone] Julio Samayoa APRN Primary Care Provider [phone] Florin Vicente MD Unavailable Tiffanie Avery MD Primary Care Provider [phone] Sindi Mcfarland MA Unavailable Unavailable Mao Powell MD Unavailable [phone] Jeff Douglas MD Unavailable [phone] Tiffanie Avery MD Primary Care Provider Encounter [...] AM EST Office Visit [facility] [address], [address] [place] [address] Marcos Santana APRN [address] [place] [address],[address] [place], [place] [id number] documented as of this encounter Visit Diagnoses Not on filedocumented in this encounter Care Teams Customer Service Consultant Relationship Specialty Start Date End Date Abhi Ruiz MD PCP - General 12/29/07 10/04/09 Rikki Painter DO [address] [place] [address] PCP - General Family Medicine 10/05/09 06/12/11 Louie Purdy MD [address] [place] [address] PCP - General Family Medicine 06/13/11 07/05/14 Maricruz Burris, ENT CONSULTANT [address] [place] [address] PCP - General Nurse Practitioner 07/06/14 11/29/14 Otilia Abreu [place], [place] PCP - General Family Medicine 11/30/14 04/25/15 Julio Samayoa APRN [address] [place] [address] PCP - General nurse practitioner adult care 04/26/15 01/19/17 Julio Samayoa APRN [address] [place] [address] PCP - General Family Practice 01/20/17 01/19/18 Tiffanie Avery MD [address] [place] [address] [place] [address] PCP - General Family Medicine 01/20/18 10/28/23 Tiffanie Avery MD [address] [place] [address] [place] [address] PCP - General Family Medicine 12/22/23 Stew Hankins III, MD Gastroenterology 10/25/10 Kirby Kaur MD [address] [place] [address] [address] Family Medicine 12/23/11 Nicholas Cristobal MD [address] [place] [address] [address] [place] [address] Gastroenterology 08/08/14 Charlie Ayala, PA-C [address] [place] [address] [address] [place] [address] Physician Wheel Cutter 02/05/15 Sully Castillo LPN 02/22/15 [place] [address] [place] [address] [address] Pulmonary Disease 01/19/18 Sindi Mcfarland MA 09/22/18 Mao Powell MD [address] [place] [address] [address] Orthopedic Surgery 05/22/21 Jeff [place] MD 613 [address] [address] [place] [address] Orthopedic Surgery 07/18/21 documented as of this encounter
--- OUTSIDE RECORDS SUMMARY | 2024-12-28 10:39 | XMS_ITS | Encounter Summary ---
Author Organization [facility] Address [address] [place] [address] Care Team Providers Care Mine Development Engineer Name Role Phone Abhi Ruiz MD Primary Care Provider Unavailabl Rikki Stone DO Primary Care Provider [phone] Nhi AZUL MD, Morris Wilson Unavailable Haven Louie Pace MD Primary Care Provider [phone] Kirby Kaur MD Unavailable [phone] Maricruz Burris APRN Primary Care Provide r Nicholas Cristobal MD Unavailable Doctor, No Primary Care Provider UnavailCharlie Greenberg PA-C Unavailable Sully Castillo LPN Unavailable Unavailable Julio Samayoa APRN Primary Care Provider [phone] Julio Samayoa APRN Primary Care Provider [phone] Florin Vicente MD Unavailable Tiffanie Avery MD Primary Care Provider Sindi Mcfarland MA Unavailable Unavailable Mao Powell MD Unavailable [phone] Jeff Douglas MD Unavailable [phone] Tiffanie Avery MD Primary Care Provider Encounter [...] AM EST Office Visit [facility] [address], [address] [place] [address] Marcos Santana APRN [address] [place] [address],[address] [place] [address] documented as of this encounter Visit Diagnoses Not on filedocumented in this encounter Care Teams Mine Development Engineer Relationship Specialty Start Date End Date Abhi Ruiz MD PCP - General 12/29/07 10/04/09 Rikki Painter DO [address] [place] [address] PCP - General Family Medicine 10/05/09 06/12/11 Louie Purdy MD [address] [place] [address] PCP - General Family Medicine 06/13/11 07/05/14 Maricruz Burris APRN [address] [place] [address] PCP - General Nurse Practitioner 07/06/14 11/29/14 Otilia Abreu [place], [place] PCP - General Family Medicine 11/30/14 04/25/15 Julio Samayoa APRN [address] [place] [address] PCP - General nurse practitioner adult care 04/26/15 01/19/17 Julio Samayoa APRN [address] [facility] [place] [address] PCP - General Family Practice 01/20/17 01/19/18 Tiffanie Avery MD [address] [place] [address] [place] [address] PCP - General Family Medicine 01/20/18 10/28/23 Tiffanie Avery MD [address] [place] [address] PCP - General Family Medicine 12/22/23 Stew Hankins III, MD Gastroenterology 10/25/10 Kirby Kaur MD [address] [place] [address] Family Medicine 12/23/11 Nicholas Cristobal MD [address] [place] [address] [address] [place] [address] Gastroenterology 08/08/14 Charlie Ayala, PA-C [address] [place] [address] [address] [place] [address] Physician Graduate Advisor 02/05/15 Sully Castillo LPN 02/22/15 [place] [address] [place] [address] [address] Pulmonary Disease 01/19/18 Sindi Mcfarland MA 09/22/18 Mao Powell MD [address] [place] [address] [address] Orthopedic Surgery 05/22/21 Jeff Douglas MD 613 [address] [address] [place] [id number] Orthopedic Surgery 07/18/21 documented as of this encounter
--- OUTSIDE RECORDS SUMMARY | 2024-12-28 10:39 | XMS_ITS | Encounter Summary ---
Author Organization [facility] Address [address] [place] [address] Care Team Providers Care Line Director Name Role Phone Nhi AZUL MD, Morris Wilson Unavailable Haven lisailaKirby Woods MD Unavailable Nicholas Cristobal MD Unavailable Charlie Ayala PA-C Unavailable [phone] Sully Castillo LPN Unavailable Unavailable Florin Vicente MD Unavailable Tiffanie Avery MD Primary Care Provider [phone] Sindi Mcfarland MA Unavailable Unavailable Mao Powell MD Unavailable [phone] Jeff Douglas MD Unavailable [phone] Tiffanie Avery MD Primary Care Provider [phone] Encounter Details Date Type Department Care Team (Late st Contact Info) Description 06/15/2018 Telephone [facility] [address] [place] [address] Julio Samayoa APRN [address] [place] [address] Social History Tobacco Use Types [...] cath done on Thursday. Please call at [phone]. Thank you. documented in this encounter Plan of Treatment Upcoming Encounters Date Type Department Care Team (Late st Contact Info) Description 06/12/2025 9:30 AM EST Office Visit [facility] [address], [address] [place] [address] Marcos Santana APRN [address] [place] [address],[address] [place] [id number] documented as of this encounter Visit Diagnoses Not on filedocumented in this encounter Additional Health Concerns Assessment Noted Time PHQ-9 Depression Total Score: 0 12/25/19 18 10:45 AM EDT documented as of this encounter Care Teams Line Director Relationship Specialty Start Date End Date Tiffanie Avery MD [address] [place] [address] PCP - General Family Medicine 01/20/18 10/28/23 Tiffanie Avery MD [address] [place] [address] PCP - General Family Medicine 12/22/23 Stew Hankins III, MD Gastroenterology 10/25/10 Kirby Kaur MD [address] [place] [address] [address] [place] [address] Family Medicine 12/23/11 Nicholas Cristobal MD [address] [place] [address] [address] [place] [address] Gastroenterology 08/08/14 Charlie Ayala PA-C [address] [place] [address] [place] [address] Physician Perch Machine Inspector 02/05/15 Sully Castillo LPN 02/22/15 Florin Vicente MD [address] [facility] [place] [address] Pulmonary Disease 01/19/18 Sindi Mcfarland MA 09/22/18 Mao Powell MD [address] [place] [address] [place] [address] Orthopedic Surgery 05/22/21 Jeff Dogulas MD [address] [place] [address] [address] Orthopedic Surgery 07/18/21 documented as of this encounter
--- OUTSIDE RECORDS SUMMARY | 2024-12-28 10:40 | XMS_ITS | Encounter Summary ---
Author Organization [facility] Address [address] [place] [address] Care Team Providers Care Human Resources Representative Name Role Phone Abhi Ruiz MD Primary Care Provider Unavailabl Rikki Stone DO Primary Care Provider [phone] Nhi AZUL MD, Morris Wilson Unavailable Haven Louie Pace MD Primary Care Provider Kirby Kaur MD Unavailable [phone] Maricruz Burris APRN Primary Care Provide r Nicholas Cristobal MD Unavailable Doctor, No Primary Care Provider UnavailCharlie Greenberg PA-C Unavailable [phone] Sully Castillo LPN Unavailable Unavailable Julio Samayoa APRN Primary Care Provider [phone] Julio Samayoa APRN Primary Care Provider [phone] Florin Vicente MD Unavailable Tiffanie Avery MD Primary Care Provider [phone] Sindi Mcfarland MA Unavailable Unavailable Mao Powell MD Unavailable [phone] Jeff Douglas MD Unavailable [phone] Tiffanie Avery MD Primary Care Provider Encounter Details Date Type Department Care Team (Late st Contact Info) Description 10/29/2001 Historical Encounter [place], [place] Social History Tobacco Use Types Packs/Day [...] 9:30 AM EST Office Visit [facility] [address], [address] [place] [address] Marcos Santana APRN [address] [place] [address],[address] [place] [address] documented as of this encounter Visit Diagnoses Not on filedocumented in this encounter Care Teams Human Resources Representative Relationship Specialty Start Date End Date Abhi Ruiz MD PCP - General 12/29/07 10/04/09 Rikki Painter DO [address] [place] [address] PCP - General Family Medicine 10/05/09 06/12/11 Louie Purdy MD [address] [place] [address] PCP - General Family Medicine 06/13/11 07/05/14 Maricruz Burris APRN [address] [place] [address] PCP - General Nurse Practitioner 07/06/14 11/29/14 Otilia Abreu [place], [place] PCP - General Family Medicine 11/30/14 04/25/15 Julio Samayoa APRN [address] [place] [address] PCP - General nurse practitioner adult care 04/26/15 01/19/17 Julio Samayoa APRN [address] [place] [address] PCP - General Family Practice 01/20/17 01/19/18 Tiffanie Avery MD [address] [place] [address] PCP - General Family Medicine 01/20/18 10/28/23 Tiffanie Avery MD [address] [place] [address] PCP - General Family Medicine 12/22/23 Stew Hankins III, MD Gastroenterology 10/25/10 Kirby Kaur MD [address] [place] [address] [address] Family Medicine 12/23/11 Nicholas Cristobal MD [address] [place] [address] [address] [place] [address] Gastroenterology 08/08/14 Charlie Ayala, PAMindiC [address] [place] [address] [address] [place] [address] Physician Veneer Stock Grader 02/05/15 Sully Castillo LPN 02/22/15 Florin Vicente MD [address] [facility] [address] [address] Pulmonary Disease 01/19/18 Sindi Mcfarland MA 09/22/18 Mao Powell MD [address] [place] [address] [address] Orthopedic Surgery 05/22/21 Jeff Douglas MD 613 23[address] [facility] [address] [place] [address] Orthopedic Surgery 07/18/21 documented as of this encounter
--- OUTSIDE RECORDS SUMMARY | 2024-12-28 10:40 | XMS_ITS | Encounter Summary ---
Author Organization [facility] Address [address] [place] [address] Care Team Providers Care Supervisor Bottle House Cleaners Name Role Phone Abhi Ruiz MD Primary Care Provider Unavailabl Rikki Stone DO Primary Care Provider [phone] Nhi AZUL MD, Morris Wilson Unavailable Haven Louie Pace MD Primary Care Provider Kirby Kaur MD Unavailable [phone] Maricruz Burris APRN Primary Care Provide r Nicholas Cristobal MD Unavailable Doctor, No Primary Care Provider UnavailCharlie Greenberg PA-C Unavailable Sully Castillo LPN Unavailable Unavailable Julio Samayoa APRN Primary Care Provider [phone] Julio Samayoa APRN Primary Care Provider [phone] Florin Vicente MD Unavailable Tiffanie Avery MD Primary Care Provider [phone] Sindi Mcfarland MA Unavailable Unavailable Mao Powell MD Unavailable [phone] Jeff Douglas MD Unavailable [phone] Tiffanie Avery MD Primary Care Provider [phone] Encounter Details Date Type Department Care Team [...] Upcoming Encounters Date Type Department Care Team ([facility] st Contact Info) Description 06/12/2025 9:30 AM EST Office Visit [facility] [address], [address] [place] [address] Marcos Santana APRN [address] [place] [address],[address] [place], [place] [id number] documented as of this encounter Visit Diagnoses Not on filedocumented in this encounter Care Teams Supervisor Bottle House Cleaners Relationship Specialty Start Date End Date Abhi Ruiz MD PCP - General 12/29/07 10/04/09 Rikki Painter DO [address] [place] [address] PCP - General Family Medicine 10/05/09 06/12/11 Louie Purdy MD [address] [place] [address] PCP - General Family Medicine 06/13/11 07/05/14 Maricruz Burris, MOUNTING MACHINE OPERATOR [address] [place] [address] PCP - General Nurse Practitioner 07/06/14 11/29/14 Otilia Abreu [place], [place] PCP - General Family Medicine 11/30/14 04/25/15 Julio Samayoa APRN [address] [place] [address] PCP - General nurse practitioner adult care 04/26/15 01/19/17 Julio Samayoa APRN [address] [place] [address] PCP - General Family Practice 01/20/17 01/19/18 Tiffanie Avery MD [address] [place] [address] [place] [address] PCP - General Family Medicine 01/20/18 10/28/23 Tiffanie Avery MD [address] [place] [address] [place] [address] PCP - General Family Medicine 12/22/23 Stew Hankins III, MD Gastroenterology 10/25/10 Kirby Kaur MD [address] [place] [address] [address] Family Medicine 12/23/11 Nicholas Cristobal MD [address] [place] [address] [address] [place] [address] Gastroenterology 08/08/14 Charlie Ayala, PA-C [address] [place] [address] [address] [place] [address] Physician Mill Feeder 02/05/15 Sully Castillo LPN 02/22/15 [place] [address] [place] [address] [address] Pulmonary Disease 01/19/18 Sindi Mcfarland MA 09/22/18 Mao Powell MD [address] [place] [address] [address] Orthopedic Surgery 05/22/21 Jeff Douglas MD 613 23[facility] [address] [place] [address] Orthopedic Surgery 07/18/21 documented as of this encounter
--- OUTSIDE RECORDS SUMMARY | 2024-12-28 10:40 | XMS_ITS | Encounter Summary ---
Author Organization [facility] Address [address] [place] [address] Care Team Providers Care Litigation Claim Representative Name Role Phone Abhi Ruiz MD Primary Care Provider Unavailabl Rikki Stone DO Primary Care Provider [phone] Nhi AZUL MD, Morris Wilson Unavailable Haven Louie Pace MD Primary Care Provider [phone] Kirby Kaur MD Unavailable [phone] Maricruz Burris APRN Primary Care Provide r Nicholas Cristobal MD Unavailable Doctor, No Primary Care Provider UnavailCharlie Greenberg PA-C Unavailable Sully Castillo LPN Unavailable Unavailable Julio Samayoa APRN Primary Care Provider [phone] Julio Samayoa APRN Primary Care Provider [phone] Florin Vicente MD Unavailable Tiffanie Avery MD Primary Care Provider Sindi Mcfarland MA Unavailable Unavailable Mao Powell MD Unavailable [phone] Jeff Douglas MD Unavailable [phone] Tiffanie Avery MD Primary Care Provider Encounter [...] Upcoming Encounters Date Type Department Care Team ([facility] st Contact Info) Description 06/12/2025 9:30 AM EST Office Visit [facility] [address], [address] [place] [address] Marcos Satnana APRN [address] [place] [address],[address] [place] [address] documented as of this encounter Visit Diagnoses Not on filedocumented in this encounter Care Teams Litigation Claim Representative Relationship Specialty Start Date End Date Abhi Ruiz MD PCP - General 12/29/07 10/04/09 Rikki Painter DO [address] [place] [address] PCP - General Family Medicine 10/05/09 06/12/11 Louie Purdy MD [address] [place] [address] PCP - General Family Medicine 06/13/11 07/05/14 Maricruz Burris APRN [address] [place] [address] PCP - General Nurse Practitioner 07/06/14 11/29/14 Otilia Abreu [place], [place] PCP - General Family Medicine 11/30/14 04/25/15 Julio Samayoa APRN [address] [place] [address] PCP - General nurse practitioner adult care 04/26/15 01/19/17 Julio Samayoa APRN [address] [place] [place] [address] PCP - General Family Practice 01/20/17 01/19/18 Tiffanie Avery MD [address] [place] [address] [place] [address] PCP - General Family Medicine 01/20/18 10/28/23 Tiffanie Avery MD [address] [place] [address] PCP - General Family Medicine 12/22/23 Stew Hankins III, MD Gastroenterology 10/25/10 Kirby Kaur MD [address] [place] [address] Family Medicine 12/23/11 Nicholas Cristobal MD [address] [place] [address] [address] [place] [address] Gastroenterology 08/08/14 Charlie Ayala, PA-C [address] [place] [address] [address] [place] [address] Physician Patent Counsel 02/05/15 Sully Castillo LPN 02/22/15 [place] [address] [place] [address] [address] Pulmonary Disease 01/19/18 Sindi Mcfarland MA 09/22/18 Mao Powell MD [address] [place] [address] [address] Orthopedic Surgery 05/22/21 Jeff Douglas MD 613 23[facility] [address] [place] [id number] Orthopedic Surgery 07/18/21 documented as of this encounter
--- OUTSIDE RECORDS SUMMARY | 2024-12-28 10:40 | XMS_ITS | Encounter Summary ---
Author Organization [facility] Address [address] [place] [address] Care Team Providers Care Mobility Architect Name Role Phone Rikki Painter DO Primary Care Provider [phone] Nhi AZUL MD, Morris Wilson Unavailable Haven lisailable Louie Purdy MD Primary Care Provider [phone] Kirby Kaur MD Unavailable [phone] Maricruz Burris APRN Primary Care Provide r Nicholas Cristobal MD Unavailable Doctor, No Primary Care Provider UnavailCharlie Greenberg PA-C Unavailable Sully Castillo LPN Unavailable Unavailable Julio Samayoa APRN Primary Care Provider [phone] Julio Samayoa APRN Primary Care Provider [phone] Florin Vicente MD Unavailable Tiffanie Avery MD Primary Care Provider [phone] Sindi Mcfarland MA Unavailable Unavailable Mao Powell MD Unavailable [phone] Jeff Douglas MD Unavailable [phone] Tiffanie Avery MD Primary Care Provider Encounter Details Date Type Department Care Team (Late st Contact Info) Description 01/29/2011 Orders Only [facility] [address] [place] [id number] Rikki Painter DO [address] [place] [address] Anxiety (Primary Dx) Social History Tobacco Use [...] Encounters Date Type Department Care Team ([facility] st Contact Info) Description 06/12/2025 9:30 AM EST Office Visit [facility] [address], [address] [place] [address] Marcos Santana APRN [address] [place], [place] [address] [place] [address] documented as of this encounter Visit Diagnoses Diagnosis Anxiety- Primary Anxiety state, unspecified documented in this encounter Care Teams Mobility Architect Relationship Specialty Start Date End Date Rikki Painter DO [address] [place] [address] PCP - General Family Medicine 10/05/09 06/12/11 Louie Purdy MD [address] [place] [address] PCP - General Family Medicine 06/13/11 07/05/14 Maricruz Burris BUSINESS CONTINUITY STRATEGY DIRECTOR [address] [place] [address] PCP - General Nurse Practitioner 07/06/14 11/29/14 Otilia Abreu [place] PCP - General Family Medicine 11/30/14 04/25/15 Julio Samayoa APRN [address] [place], [place] [address] PCP - General nurse practitioner adult care 04/26/15 01/19/17 Julio Samayoa APRN [address] [place], [place] [address] PCP - General Family Practice 01/20/17 01/19/18 Tiffanie Avery MD [address] [place] [address] PCP - General Family Medicine 01/20/18 10/28/23 Tiffanie Avery MD [address] [place] [address] PCP - General Family Medicine 12/22/23 Stew Hankins III, MD Gastroenterology 10/25/10 Kirby Kaur MD [address] [place] [address] [address] [place] [address] Family Medicine 12/23/11 Nicholas Cristobal MD [address] [place] [address] [address] [place] [address] Gastroenterology 08/08/14 Charlie Ayala PA-C [address] [place] [address] [address] [place] [address] Physician Product Safety Coordinator 02/05/15 Sully Castillo LPN 02/22/15 [place] [address] [place] [address] [address] [place] [address] Pulmonary Disease 01/19/18 Sindi Mcfarland MA 09/22/18 Mao Powell MD [address] [place] [address] Orthopedic Surgery 05/22/21 Jeff Douglas MD [address] [place] [address] Orthopedic Surgery 07/18/21 documented as of this encounter
--- OUTSIDE RECORDS SUMMARY | 2024-12-28 10:40 | XMS_ITS | Encounter Summary ---
Author Organization [facility] Address [address] [place] [address] Care Team Providers Care Catering Cook Name Role Phone Abhi Ruiz MD Primary Care Provider Unavailabl Rikki Stone DO Primary Care Provider [phone] Nhi AZUL MD, Morris Wilson Unavailable Haven Louie Pace MD Primary Care Provider [phone] Kirby Kaur MD Unavailable [phone] Maricruz Burris APRN Primary Care Provide r Nicholas Cristobal MD Unavailable Doctor, No Primary Care Provider UnavailCharlie Greenberg PA-C Unavailable Sully Castillo LPN Unavailable Unavailable Julio Samayoa APRN Primary Care Provider [phone] Julio Samayoa APRN Primary Care Provider [phone] Florin Vicente MD Unavailable Tiffanie Avery MD Primary Care Provider Sindi Mcfarland MA Unavailable Unavailable Mao Powell MD Unavailable [phone] Jeff Douglas MD Unavailable [phone] Tiffanie Avery MD Primary Care Provider Encounter [...] Upcoming Encounters Date Type Department Care Team ([facility] st Contact Info) Description 06/12/2025 9:30 AM EST Office Visit [facility] [address], [address] [place] [address] Marcos Santana APRN [address] [place] [address],[address] [place] [address] documented as of this encounter Visit Diagnoses Not on filedocumented in this encounter Care Teams Catering Cook Relationship Specialty Start Date End Date Abhi Ruiz MD PCP - General 12/29/07 10/04/09 Rikki Painter DO [address] [place] [address] PCP - General Family Medicine 10/05/09 06/12/11 Louie Purdy MD [address] [place] [address] PCP - General Family Medicine 06/13/11 07/05/14 Maricruz Burris APRN [address] [place] [address] PCP - General Nurse Practitioner 07/06/14 11/29/14 Otilia Abreu [place], [place] PCP - General Family Medicine 11/30/14 04/25/15 Julio Samayoa APRN [address] [place] [address] PCP - General nurse practitioner adult care 04/26/15 01/19/17 Julio Samayoa APRN [address] [place] [facility] [place] [address] PCP - General Family Practice 01/20/17 01/19/18 Tiffanie Avery MD [address] [place] [address] [place] [address] PCP - General Family Medicine 01/20/18 10/28/23 Tiffanie Avery MD [address] [place] [address] PCP - General Family Medicine 12/22/23 Stew Hankins III, MD Gastroenterology 10/25/10 Kirby Kaur MD [address] [place] [address] Family Medicine 12/23/11 Nicholas Cristobal MD [address] [place] [address] [address] [place] [address] Gastroenterology 08/08/14 Charlie Ayala, PA-C [address] [place] [address] 430 [place] [address] Physician Autocad Draftsman 02/05/15 Sully Castillo LPN 02/22/15 [place] [address] [place] [address] [address] Pulmonary Disease 01/19/18 Sindi Mcfarland MA 09/22/18 Mao Powell MD [address] [place] [address] [address] Orthopedic Surgery 05/22/21 Jeff Douglas MD 613 [address] [address] [place] [id number] Orthopedic Surgery 07/18/21 documented as of this encounter
--- OUTSIDE RECORDS SUMMARY | 2024-12-28 10:40 | XMS_ITS | Encounter Summary ---
Author Organization [facility] Address [address] [place] [address] Care Team Providers Care Medical Data Analyst Name Role Phone Nhi AZUL MD, Morris Wilson Unavailable Haven vailable Kirby Kaur MD Unavailable [phone] Nicholas Cristobal MD Unavailable Charlie Ayala PA-C Unavailable Sully Castillo LPN Unavailable Unavailable Julio Samayoa APRN Primary Care Provider [phone] Julio Samayoa APRN Primary Care Provider Florin Vicente MD Unavailable Tiffanie Avery MD Primary Care Provider [phone] Sindi Mcfarland MA Unavailable Unavailable Mao Powell MD Unavailable [phone] Jeff Douglas MD Unavailable [phone] Tiffanie Avery MD Primary Care Provider [phone] Encounter Details Date Type Department Care Team (Late st Contact Info) Description 05/15/2015 Telephone [facility] [address] [place] [address] [address] [place] [address] Charlie Ayala PA-C [address] [facility] [place] [address] Social History Tobacco Use Types Packs/Day Years [...] Description 06/12/2025 9:30 AM EST Office Visit [facility] CARDIOLOG[facility] [address], [address] [place] [address] Marcos Santana, PROFILER [address] [place] [address],[address] [place], [place] [address] documented as of this encounter Results * Lipid Panel (05/22/2015 8:50 AM EST) [facility] CHOLESTEROL 184 10 - 200 mg/dL 05/22/2015 12:53 PM EST [facility] TRIGLYCERIDE 87 46 - 236 mg/dL 05/22/2015 12:53 PM EST [facility] HDL 56.0 27.0 - 67.0 mg/dL 05/22/2015 12:53 PM EST [facility] VLDL 17.4 mg/dL 05/22/2015 12:53 PM EST [facility] LDL 110.6 mg/dL 05/22/2015 12:53 PM EST [facility] Comment: CAP STANDARDIZED LDL-CHOLESTEROL VALUES <130-DESIRABLE 130-159 BORDERLINE/HIGH RISK >160-HIGH RISK RISK 1, MALE 3.29 05/22/2015 12:53 PM EST [facility] Comment: TOTAL CHOL/HDL 1/2 AVERAGE 3.43 AVERAGE 4.97 2 X AVERAGE 9.55 3 X AVERAGE 23.39 RISK 2, MALE 1.98 05/22/2015 12:53 PM EST [facility] Comment: LDL/HDL 1/2 AVERAGE 1.00 AVERAGE 3.55 2 X AVERAGE 6.25 3 X AVERAGE 7.99 RISK 1, FEMALE 3.29 05/22/2015 12:53 PM EST [facility] Comment: TOTAL CHOL/HDL 1/2 AVERAGE 3.27 AVERAGE 4.44 2 X AVERAGE 7.05 3 X AVERAGE 11.04 RISK 2, FEMALE 1.98 05/22/2015 12:53 PM EST [facility] Comment: LDL/HDL 1/2 AVERAGE 1.47 AVERAGE 3.22 2 X AVERAGE 5.03 3 X AVERAGE 6.14 05/22/2015 8:50 AM EST 05/22/2015 12:27 PM EST Charlie Ayala PA-C CHEMISTRY ORDERABLES Final Result Performing Organization Address City/State/[facility] de Phone Number [facility] [address] [place] [address] documented in this encounter Visit Diagnoses Diagnosis HLD (hyperlipidemia)- Primary Other and unspecified hyperlipidemia documented in this encounter Care Teams Medical Data Analyst Relationship Specialty Start Date End Date Julio Samayoa APRN [address] [place] [address] PCP - General nurse practitioner adult care 04/26/15 01/19/17 Julio Samayoa APRN [address] [place] [address] PCP - General Family Practice 01/20/17 01/19/18 Tiffanie Avery MD [address] [place] [address] PCP - General Family Medicine 01/20/18 10/28/23 Tiffanie Avery MD [address] [place] [address] PCP - General Family Medicine 12/22/23 Stew Hankins III, MD Gastroenterology 10/25/10 Kirby Kaur MD [address] [place] [address] Family Medicine 12/23/11 Nicholas Cristobal MD [address] [place] [address] Gastroenterology 08/08/14 Charlie Ayala, TORIC [address] [place] [address] Physician Fitness Assistant 02/05/15 Sully Castillo, PRINCESS 02/22/15 Florin Vicente MD [address] [place] [address] [place] [address] Pulmonary Disease 01/19/18 Sindi Mcfarland MA 09/22/18 Mao Powell MD [address] [place] [address] Orthopedic Surgery 05/22/21 Jeff Douglas MD [address] [place] [address] Orthopedic Surgery 07/18/21 documented as of this encounter
--- OUTSIDE RECORDS SUMMARY | 2024-12-28 10:40 | XMS_ITS | Encounter Summary ---
Author Organization [facility] Address [address] [place] [address] Care Team Providers Care Test Tube Maker Name Role Phone Nhi AZUL MD, Morris Wilson Unavailable Haven lisailaKirby Woods MD Unavailable [phone] Nicholas Cristobal MD Unavailable Charlie Ayala PA-C Unavailable [phone] Sully Castillo LPN Unavailable Unavailable Florin Vicente MD Unavailable Sindi Mcfarland MA Unavailable Unavailable Mao Powell MD Unavailable Jeff Douglas MD Unavailable Tiffanie Avery MD Primary Care Provider [phone] Reason for Visit * Reason Onset Date Comments Other 12/03/2023 Med Request Encounter Details Date Type Department Care Team (Late st Contact Info) Description 12/03/2023 Telephone [facility] [place] [facility] [address] [place] [address] Nila Gregory MD [address] [facility] [place] [address] Other (Med Request) Social History Tobacco [...] Description 06/12/2025 9:30 AM EST Office Visit [facility] CARDIOLOG[facility] [address] [place] [address] Marcos Santana APRN [address] [place], [place] [address] [place] [id number] documented as of this encounter Visit Diagnoses Not on filedocumented in this encounter Additional Health Concerns Assessment Noted Time PHQ-9 Depression Total Score: 0 04/01/20 19 2:31 PM EST documented as of this encounter Care Teams Test Tube Maker Relationship Specialty Start Date End Date Tiffanie Avery MD [address] [place] [address] PCP - General Family Medicine 12/22/23 Stew Hankins III, MD Gastroenterology 10/25/10 Kirby Kaur MD [address] [place] [address] [place] [address] Family Medicine 12/23/11 Nicholas Cristobal MD [address] [place] [address] Gastroenterology 08/08/14 Charlie Ayala, TORIC [address] [place] [address] Physician Metrology Technician 02/05/15 Sully Castillo LPN 02/22/15 [place] [address] [place] [address] [place] [address] Pulmonary Disease 01/19/18 Sindi Mcfarland MA 09/22/18 Mao Powell MD [address] [place] [address] Orthopedic Surgery 05/22/21 Jeff Douglas MD [address] [place] [address] [place] [address] Orthopedic Surgery 07/18/21 documented as of this encounter
--- OUTSIDE RECORDS SUMMARY | 2024-12-28 10:40 | XMS_ITS | Encounter Summary ---
Author Organization [facility] Address [address] [place] [address] Care Team Providers Care Application Packaging Specialist Name Role Phone Nhi AZUL MD, Morris Wilson Unavailable Haven lisailable Kirby Kaur MD Unavailable [phone] Nicholas Cristobal MD Unavailable Charlie Ayala PA-C Unavailable [phone] Sully Castillo LPN Unavailable Unavailable Julio Samayoa APRN Primary Care Provider [phone] Julio Samayoa APRN Primary Care Provider Florin Vicente MD Unavailable Tiffanie Avery MD Primary Care Provider [phone] Sindi Mcfarland MA Unavailable Unavailable Mao Powell MD Unavailable [phone] Jeff Douglas MD Unavailable [phone] Tiffanie Avery MD Primary Care Provider [phone] Reason for Visit * Reason Onset Date Comments Other 07/04/2015 Medicare annual physical Encounter Details Date Type Department Care Team (Late st Contact Info) Description 07/04/2015 Telephone [facility] [address] [place] [address] Julio Samayoa APRN [address] [place] [address] Other (Medicare annual physical) Social [...] 9:30 AM EST Office Visit [facility] [address], [address] [place] [address] Marcos Santana APRN [address] [place] [address],[address] [place] [address] documented as of this encounter Visit Diagnoses Not on filedocumented in this encounter Care Teams Application Packaging Specialist Relationship Specialty Start Date End Date Julio Samayoa APRN [address] [place] [address] PCP - General nurse practitioner adult care 04/26/15 01/19/17 Julio Samayoa APRN [address] [place] [address] PCP - General Family Practice 01/20/17 01/19/18 Tiffanie Avery MD [address] [place] [address] PCP - General Family Medicine 01/20/18 10/28/23 Tiffanie Avery MD [address] [facility] [place] [address] PCP - General Family Medicine 12/22/23 Stew Hankins III, MD Gastroenterology 10/25/10 Kirby Kaur MD [address] [place] [address] Family Medicine 12/23/11 Nicholas Cristobal MD [address] [place] [address] Gastroenterology 08/08/14 Charlie Ayala PA-C [address] [place] [address] Physician Experimental Rocket Sled Mechanic 02/05/15 Sully Castillo LPN 02/22/15 [place] [address] [place] [address] [place] [address] Pulmonary Disease 01/19/18 Sindi Mcfarland MA 09/22/18 Mao Powell MD [address] [place] [address] Orthopedic Surgery 05/22/21 Jeff Douglas MD [address] [place] [address] Orthopedic Surgery 07/18/21 documented as of this encounter
--- OUTSIDE RECORDS SUMMARY | 2024-12-28 10:40 | XMS_ITS | Encounter Summary ---
Author Organization [facility] Address [address] [place] [address] Care Team Providers Care Operations General Agent Name Role Phone Rikki Painter DO Primary Care Provider [phone] Nhi AZUL MD, Morris Wilson Unavailable Haven lisailaLouie Cui MD Primary Care Provider Kirby Kaur MD Unavailable [phone] Maricruz Burris APRN Primary Care Provide r Nicholas Cristobal MD Unavailable Doctor, No Primary Care Provider UnavailCharlie Greenberg PA-C Unavailable Sully Castillo LPN Unavailable Unavailable Julio Samayoa APRN Primary Care Provider [phone] Julio Samayoa APRN Primary Care Provider [phone] Florin Vicente MD Unavailable Tiffanie Avery MD Primary Care Provider [phone] Sindi Mcfarland MA Unavailable Unavailable Mao Powell MD Unavailable [phone] Jeff Douglas MD Unavailable [phone] Tiffanie Avery MD Primary Care Provider [phone] Reason for Visit * Reason Onset Date Comments Medications Refill 04/04/2011 Encounter Details Date Type Department Care Team (Late st Contact Info) Description 04/04/2011 [facility] [address] [place] [address] Rikki Painter DO [address] [place] [address] DM (diabetes mellitus) (Primary Dx) [...] Upcoming Encounters Date Type Department Care Team ([facility] Contact Info) Description 06/12/2025 9:30 AM EST Office Visit [facility] C[facility] [address] [place] [address] Marcos Santana APRN [address] [place] [address],[address] [place] [address] documented as of this encounter Visit Diagnoses Diagnosis DM (diabetes mellitus) (HCC)- Primary Type II or unspecified type diabetes mellitus without mention of complication, not stated as uncontrolled documented in this encounter Care Teams Operations General Agent Relationship Specialty Start Date End Date Rikki Painter DO [address] [place] [address] PCP - General Family Medicine 10/05/09 06/12/11 Louie Purdy MD [address] [place], [place] [address] PCP - General Family Medicine 06/13/11 07/05/14 Maricruz Burris, STEREO EQUIPMENT SALESPERSON [address] [place], [place] [address] PCP - General Nurse Practitioner 07/06/14 11/29/14 Otilia Abreu [place] PCP - General Family Medicine 11/30/14 04/25/15 Julio Samayoa APRN [address] [place], [place] [address] PCP - General nurse practitioner adult care 04/26/15 01/19/17 Julio Samayoa APRN [address] [place] [address] PCP - General Family Practice 01/20/17 01/19/18 Tiffanie Avery MD [address] [place] [address] PCP - General Family Medicine 01/20/18 10/28/23 Tiffanie Avery MD [address] [place] [address] PCP - General Family Medicine 12/22/23 Stew Hankins III, MD Gastroenterology 10/25/10 Kirby Kaur MD [address] [place] [address] [place] [address] Family Medicine 12/23/11 Nicholas Cristobal MD [address] [place] [address] Gastroenterology 08/08/14 Charlie Ayala PA-C [address] [place] [address] Physician Shipping Lead Person 02/05/15 Sully Castillo LPN 02/22/15 Florin Vicente MD [address] [place] [address] [address] [place], [place] [id number] Pulmonary Disease 01/19/18 Sindi Mcfarland MA 09/22/18 Mao Powell MD [address] [place] [address] Orthopedic Surgery 05/22/21 Jeff Douglas MD [address] [place] [address] Orthopedic Surgery 07/18/21 documented as of this encounter
--- OUTSIDE RECORDS SUMMARY | 2024-12-28 10:40 | XMS_ITS | Encounter Summary ---
Author Organization [facility] Address [address] [place] [address] Care Team Providers Care Casting Director Name Role Phone Abhi Ruiz MD Primary Care Provider Unavailabl Rikki Stone DO Primary Care Provider [phone] Nhi AZUL MD, Morris Wilson Unavailable Haven Louie Pace MD Primary Care Provider Kirby Kaur MD Unavailable [phone] Maricruz Burris APRN Primary Care Provide r Nicholas Cristobal MD Unavailable Doctor, No Primary Care Provider UnavailCharlie Greenberg PA-C Unavailable Sully Castillo LPN Unavailable Unavailable Julio Samayoa APRN Primary Care Provider [phone] Julio Samayoa APRN Primary Care Provider [phone] Florin Vicente MD Unavailable Tiffanie Avery MD Primary Care Provider Sindi Mcfarland MA Unavailable Unavailable Mao Powell MD Unavailable [phone] Jeff Douglas MD Unavailable [phone] Tiffanie Avery MD Primary Care Provider Encounter [...] AM EST Office Visit [facility] [address], [address] [place] [address] Marcos Santana APRN [address] [place] [address],[address] [place] [address] documented as of this encounter Visit Diagnoses Not on filedocumented in this encounter Care Teams Casting Director Relationship Specialty Start Date End Date Abhi Ruiz MD PCP - General 12/29/07 10/04/09 Rikki Painter DO [address] [place] [address] PCP - General Family Medicine 10/05/09 06/12/11 Louie Purdy MD [address] [place] [address] PCP - General Family Medicine 06/13/11 07/05/14 Maricruz Burris APRN [address] [place] [address] PCP - General Nurse Practitioner 07/06/14 11/29/14 Otilia Abreu [place] PCP - General Family Medicine 11/30/14 04/25/15 Julio Samayoa APRN [address] [place] [address] PCP - General nurse practitioner adult care 04/26/15 01/19/17 Julio Samayoa APRN [address] [facility] [place] [address] PCP - General Family Practice 01/20/17 01/19/18 Tiffanie Avery MD [address] [place] [address] [place] [address] PCP - General Family Medicine 01/20/18 10/28/23 Tiffanie Avery MD [address] [place] [address] PCP - General Family Medicine 12/22/23 Stew Hankins III, MD Gastroenterology 10/25/10 Kirby Kaur MD [address] [place] [address] Family Medicine 12/23/11 Nicholas Cristobal MD [address] [place] [address] [address] [place] [address] Gastroenterology 08/08/14 Charlie Ayala, PA-C [address] [place] [address] [address] [place] [address] Physician Glaze Handler 02/05/15 Sully Castillo LPN 02/22/15 [place] [address] [place] [address] [address] Pulmonary Disease 01/19/18 Sindi Mcfarland MA 09/22/18 Mao Powell MD [address] [place] [address] [address] Orthopedic Surgery 05/22/21 Jfef Douglas MD [address] [address] [place] [id number] Orthopedic Surgery 07/18/21 documented as of this encounter
--- OUTSIDE RECORDS SUMMARY | 2024-12-28 10:40 | XMS_ITS | Encounter Summary ---
Author Organization [facility] Address [address] [place] [address] Care Team Providers Care Roentgenologist Name Role Phone Nhi AZUL MD, Morris Wilson Unavailable Haven lisailaKirby Woods MD Unavailable Nicholas Cristobal MD Unavailable Charlie Ayala PA-C Unavailable [phone] Sully Castillo LPN Unavailable Unavailable Florin Vicente MD Unavailable Sindi Mcfarland MA Unavailable Unavailable Mao Powell MD Unavailable Jeff Douglas MD Unavailable Tiffanie Avery MD Primary Care Provider [phone] Encounter Details Date Type Department Care Team (Late st Contact Info) Description 01/15/2024 Orders Only [facility] [address], [address] [place] [address] Marcos Santana, CAN TOP SETTER [address] [place] [address],[address] [place] [address] Status post coronary artery stent placement Social History Tobacco Use Types Packs/Day Years Used Date Smoking Tobacco: Former Cigarettes 1 20 1 - 03/15/1986 Smokeless Tobacco: Never Alcohol Use Standard Drinks/Week Comments No 0 (1 standard drink = 0.6 oz pur e alcohol) [facility] Utilities Answer Date Recorded In the [...] place to sleep or slept in a custodial (including now)? No 12/29/2023 Sex and Gender Information Value Date Recorded Sex Assigned at Not on file Legal Sex Male 9:36 PM EST Gender Identity Not on file Sexual Orientation Not on file documented as of this encounter Plan of Treatment Upcoming Encounters Date Type Department Care Team (Late st Contact Info) Description 06/12/2025 9:30 AM EST Office Visit [facility] [address], [address] [place] [address] Marcos Santana APRN [address] [place] [address],[address] [place] [address] documented as of this encounter Visit Diagnoses Diagnosis Status post coronary artery stent placement Postsurgical percutaneous transluminal coronary angioplasty status documented in this encounter Additional Health Concerns Assessment Noted Time PHQ-9 Depression Total Score: 0 04/01/20 19 2:31 PM EST documented as of this encounter Care Teams Roentgenologist Relationship Specialty Start Date End Date Tiffanie Avery MD [address] [place] [address] PCP - General Family Medicine 12/22/23 Stew Hankins III, MD Gastroenterology 10/25/10 Kirby Kaur MD [address] [place] [address] [address] Family Medicine 12/23/11 Nicholas Cristobal MD [address] [place] [address] [address] [place] [address] Gastroenterology 08/08/14 Charlie Ayala PA-C [address] [place] [address] [address] [place] [address] Physician Exercise Physiologist 02/05/15 Sully Castillo LPN 02/22/15 Florin Vicente MD [address] [facility] [address] [address] Pulmonary Disease 01/19/18 Sindi Mcfarland MA 09/22/18 Mao Powell MD [address] [place] [address] [address] Orthopedic Surgery 05/22/21 Jeff Douglas MD [address] [place] [address] [address] Orthopedic Surgery 07/18/21 documented as of this encounter
--- OUTSIDE RECORDS SUMMARY | 2024-12-28 10:40 | XMS_ITS | Encounter Summary ---
Author Organization [facility] Address [address] [place] [address] Care Team Providers Care Service Dismantler Name Role Phone Nhi AZUL MD, Morris Wilson Unavailable Haven lisailaKirby Woods MD Unavailable Nicholas Cristobal MD Unavailable Charlie Ayala PA-C Unavailable Sully Castillo LPN Unavailable Unavailable Florin Vicente MD Unavailable Sindi Mcfarland MA Unavailable Unavailable Mao Powell MD Unavailable Jeff Douglas MD Unavailable Tiffanie Avery MD Primary Care Provider [phone] Encounter Details Date Type Department Care Team (Late st Contact Info) Description 11/17/2023 Telephone [facility] [address], [address] [place] [address] Joann Ayoub MD [address] [place] [address] [address] [place] [address] Social History Tobacco Use Types [...] AM EST Office Visit [facility] [address] [place] [address] Marcos Santana APRN [address] [place] [address],[address] [place], [place] [address] documented as of this encounter Visit Diagnoses Not on filedocumented in this encounter Additional Health Concerns Assessment Noted Time PHQ-9 Depression Total Score: 0 04/01/20 19 2:31 PM EST documented as of this encounter Care Teams Service Dismantler Relationship Specialty Start Date End Date Tiffanie Avery MD [facility] [place] [address] PCP - General Family Medicine 12/22/23 Stew Hankins III, MD Gastroenterology 10/25/10 Kirby Kaur MD [address] [place] [address] [address] [place] [address] Family Medicine 12/23/11 Nicholas Cristobal MD [address] [place] [address] Gastroenterology 08/08/14 Charlie Ayala PA-C [address] [place] [address] Physician Woodworking Machine Offbearer 02/05/15 Sully Castillo LPN 02/22/15 [place] [address] [place] [address] [place] [address] Pulmonary Disease 01/19/18 Sindi Mcfarland MA 09/22/18 Mao Powell MD [address] [place] [address] Orthopedic Surgery 05/22/21 Jeff Douglas MD [address] [place] [address] Orthopedic Surgery 07/18/21 documented as of this encounter
--- OUTSIDE RECORDS SUMMARY | 2024-12-28 10:40 | XMS_ITS | Encounter Summary ---
Author Organization [facility] Address [address] [place] [address] Care Team Providers Care Police Academy Instructor Name Role Phone Abhi Ruiz MD Primary Care Provider Unavailabl Rikki Stone DO Primary Care Provider [phone] Nhi AZUL MD, Morris Wilson Unavailable Haven Louie Pace MD Primary Care Provider Kirby Kaur MD Unavailable [phone] Marircuz Burris APRN Primary Care Provide r Nicholas Cristobal MD Unavailable Doctor, No Primary Care Provider UnavailCharlie Greenberg PA-C Unavailable [phone] Sully Castillo LPN Unavailable Unavailable Julio Samayoa APRN Primary Care Provider [phone] Julio Samayoa APRN Primary Care Provider [phone] Florin Vicente MD Unavailable Tiffanie Avery MD Primary Care Provider [phone] Sindi Mcfarland MA Unavailable Unavailable Mao Powell MD Unavailable [phone] Jeff Douglas MD Unavailable [phone] Tiffanie Avery MD Primary Care Provider [phone] Encounter Details Date Type Department Care Team [...] 9:30 AM EST Office Visit [facility] [address], [address] [place] [address] Marcos Santana APRN [address] [place] [address],[address] [place] [address] documented as of this encounter Visit Diagnoses Not on filedocumented in this encounter Care Teams Police Academy Instructor Relationship Specialty Start Date End Date Abhi Ruiz MD PCP - General 12/29/07 10/04/09 Rikki Painter DO [address] [place] [address] PCP - General Family Medicine 10/05/09 06/12/11 Louie Purdy MD [address] [place] [address] PCP - General Family Medicine 06/13/11 07/05/14 Maricruz Burris APRN [address] [place] [address] PCP - General Nurse Practitioner 07/06/14 11/29/14 Otilia Abreu [place] PCP - General Family Medicine 11/30/14 04/25/15 Julio Samayoa APRN [address] [place] [address] PCP - General nurse practitioner adult care 04/26/15 01/19/17 Julio Samayoa APRN [address] [place] [facility] [place] [address] PCP - General Family Practice 01/20/17 01/19/18 Tiffanie Avery MD [address] [place] [address] [place] [address] PCP - General Family Medicine 01/20/18 10/28/23 Tiffanie Avery MD [address] [place] [address] PCP - General Family Medicine 12/22/23 Stew Hankins III, MD Gastroenterology 10/25/10 Kirby Kaur MD [address] [place] [address] Family Medicine 12/23/11 Nicholas Cristobal MD [address] [place] [address] [address] [place] [address] Gastroenterology 08/08/14 Charlie Ayala, PA-C [address] [place] [address] [address] [place] [address] Physician Industrial Eng 02/05/15 Sully Castillo LPN 02/22/15 [place] [address] [place] [address] [address] Pulmonary Disease 01/19/18 Sindi Mcfarland MA 09/22/18 Mao Powell MD [address] [place] [address] [address] Orthopedic Surgery 05/22/21 Jeff [place] MD [address] [address] [place] [id number] Orthopedic Surgery 07/18/21 documented as of this encounter
--- OUTSIDE RECORDS SUMMARY | 2024-12-28 10:40 | XMS_ITS | Encounter Summary ---
Author Organization [facility] Address [address] [place] [address] Care Team Providers Care Credit Rating Inspector Name Role Phone Abhi Ruiz MD Primary Care Provider Unavailabl Rikki Stone DO Primary Care Provider [phone] Nhi AZUL MD, Morris Wilson Unavailable Haven Louie Pace MD Primary Care Provider [phone] Kirby Kaur MD Unavailable [phone] Maricruz Burris APRN Primary Care Provide r Nicholas Cristobal MD Unavailable Doctor, No Primary Care Provider UnavailCharlie Greenberg PA-C Unavailable [phone] Sully Castillo LPN Unavailable Unavailable Julio Samayoa APRN Primary Care Provider [phone] Julio Samayoa APRN Primary Care Provider [phone] Florni Vicente MD Unavailable Tiffanie Avery MD Primary Care Provider Sindi Mcfarland MA Unavailable Unavailable Mao Powell MD Unavailable [phone] Jeff Douglas MD Unavailable [phone] Tiffanie Avery MD Primary Care Provider [phone] Encounter Details Date Type Department Care Team [...] 9:30 AM EST Office Visit [facility] [address], [address] [place] [address] Marcos Santana APRN [address] [place] [address],[address] [place] [address] documented as of this encounter Visit Diagnoses Not on filedocumented in this encounter Care Teams Credit Rating Inspector Relationship Specialty Start Date End Date Abhi Ruiz MD PCP - General 12/29/07 10/04/09 Rikki Painter DO [address] [place] [address] PCP - General Family Medicine 10/05/09 06/12/11 Louie Purdy MD [address] [place] [address] PCP - General Family Medicine 06/13/11 07/05/14 Maricruz Burris APRN [address] [place] [address] PCP - General Nurse Practitioner 07/06/14 11/29/14 Otilia Abreu [place], [place] PCP - General Family Medicine 11/30/14 04/25/15 Julio Samayoa APRN [address] [place] [address] PCP - General nurse practitioner adult care 04/26/15 01/19/17 Julio Samayoa APRN [address] [facility] [address] PCP - General Family Practice 01/20/17 01/19/18 Tiffanie Avery MD [address] [place] [address] [place] [address] PCP - General Family Medicine 01/20/18 10/28/23 Tiffanie Avery MD [address] [place] [address] PCP - General Family Medicine 12/22/23 Stew Hankins III, MD Gastroenterology 10/25/10 Kirby Kaur MD [address] [place] [address] Family Medicine 12/23/11 Nicholas Cristobal MD [address] [place] [address] [address] [place] [address] Gastroenterology 08/08/14 Charlie Ayala, PA-C [address] [place] [address] [address] [place] [address] Physician Director Of Speech Pathology 02/05/15 Sully Castillo LPN 02/22/15 [place] [address] [place] [address] [address] Pulmonary Disease 01/19/18 Sindi Mcfarland MA 09/22/18 Mao Powell MD [address] [place] [address] [address] Orthopedic Surgery 05/22/21 Jeff [place] MD [address] [address] [place] [id number] Orthopedic Surgery 07/18/21 documented as of this encounter
--- OUTSIDE RECORDS SUMMARY | 2024-12-28 10:40 | XMS_ITS | Encounter Summary ---
Author Organization [facility] Address [address] [place] [address] Care Team Providers Care Blender / Cook Name Role Phone Abhi Ruiz MD Primary Care Provider Unavailabl Rikki Stone DO Primary Care Provider [phone] Nhi AZUL MD, Morris Wilson Unavailable Haven Louie Pace MD Primary Care Provider Kirby Kaur MD Unavailable [phone] Maricruz Burris APRN Primary Care Provide r Nicholas Cristobal MD Unavailable Doctor, No Primary Care Provider UnavailCharlie Greenberg PA-C Unavailable Sully Castillo LPN Unavailable Unavailable Julio Samayoa APRN Primary Care Provider [phone] Julio Samayoa APRN Primary Care Provider [phone] Florin Vicente MD Unavailable Tiffanie Avery MD Primary Care Provider [phone] Sindi Mcfarland MA Unavailable Unavailable Mao Powell MD Unavailable [phone] Jeff Douglas MD Unavailable [phone] Tiffanie Avery MD Primary Care Provider Encounter [...] Upcoming Encounters Date Type Department Care Team ([facility] st Contact Info) Description 06/12/2025 9:30 AM EST Office Visit [facility] [address], [address] [place] [address] Marcos Santana APRN [address] [place] [address],[address] [place] [address] documented as of this encounter Visit Diagnoses Not on filedocumented in this encounter Care Teams Blender / Cook Relationship Specialty Start Date End Date Abhi Ruiz MD PCP - General 12/29/07 10/04/09 Rikki Painter DO [address] [place] [address] PCP - General Family Medicine 10/05/09 06/12/11 Louie Purdy MD [address] [place] [address] PCP - General Family Medicine 06/13/11 07/05/14 Maricruz Burris APRN [address] [place] [address] PCP - General Nurse Practitioner 07/06/14 11/29/14 Otilia Abreu [place] PCP - General Family Medicine 11/30/14 04/25/15 Julio Samayoa APRN [address] [place] [address] PCP - General nurse practitioner adult care 04/26/15 01/19/17 Julio Samayoa APRN [address] [place] [address] PCP - General Family Practice 01/20/17 01/19/18 Tiffanie Avery MD [address] [place] [address] [place] [address] PCP - General Family Medicine 01/20/18 10/28/23 Tiffanie Avery MD [address] [place] [address] PCP - General Family Medicine 12/22/23 Stew Hankins III, MD Gastroenterology 10/25/10 Kirby Kaur MD [address] [place] [address] Family Medicine 12/23/11 Nicholas Cristobal MD [address] [place] [address] [address] [place] [address] Gastroenterology 08/08/14 Charlie Ayala, PA-C [address] [place] [address] 430 [place] [address] Physician Electrical Equipment Tester 02/05/15 Sully Castillo LPN 02/22/15 [place] [address] [place] [address] [address] Pulmonary Disease 01/19/18 Sindi Mcfarland MA 09/22/18 Mao Powell MD [address] [place] [address] [address] Orthopedic Surgery 05/22/21 Jeff [place] MD 613 [address] [address] [place] [address] Orthopedic Surgery 07/18/21 documented as of this encounter
--- OUTSIDE RECORDS SUMMARY | 2024-12-28 10:40 | XMS_ITS | Encounter Summary ---
Author Organization [facility] Address [address] [place] [address] Care Team Providers Care Systems Designer Name Role Phone Abhi Ruiz MD Primary Care Provider Unavailabl Rikki Stone DO Primary Care Provider [phone] Nhi AZUL MD, Morris Wilson Unavailable Haven Louie Pace MD Primary Care Provider Kirby Kaur MD Unavailable [phone] Maricruz Burris APRN Primary Care Provide r Nicholas Cristobal MD Unavailable Doctor, No Primary Care Provider UnavailCharlie Greenberg PA-C Unavailable [phone] Sully Castillo LPN Unavailable Unavailable Julio Samayoa APRN Primary Care Provider [phone] Julio Samayoa APRN Primary Care Provider [phone] Florin Vicente MD Unavailable Tiffanie Avery MD Primary Care Provider [phone] Sindi Mcfarland MA Unavailable Unavailable Mao Powell MD Unavailable [phone] Jeff Douglas MD Unavailable [phone] Tiffanie Avery MD Primary Care Provider [phone] Encounter Details Date Type Department Care Team (Late st Contact Info) Description 02/23/2000 Historical Encounter [employer] Blu Ruiz Social History [...] [facility] st Contact Info) Description 06/12/2025 9:30 AM EST Office Visit [facility] [address], [address] [place] [address] Marcos Santana APRN [address] [place] [address],[address] [place] [address] documented as of this encounter Visit Diagnoses Not on filedocumented in this encounter Care Teams Systems Designer Relationship Specialty Start Date End Date Abhi Ruiz MD PCP - General 12/29/07 10/04/09 Rikki Painter DO [address] [place] [address] PCP - General Family Medicine 10/05/09 06/12/11 Louie Purdy MD [address] [place] [address] PCP - General Family Medicine 06/13/11 07/05/14 Maricruz Burris APRN [address] [place] [address] PCP - General Nurse Practitioner 07/06/14 11/29/14 Otilia Abreu [place] PCP - General Family Medicine 11/30/14 04/25/15 Julio Samayoa APRN [address] [place] [address] PCP - General nurse practitioner adult care 04/26/15 01/19/17 Julio Samayoa APRN [address] [facility] [place] [address] PCP - General Family Practice 01/20/17 01/19/18 Tiffanie Avery MD [address] [place] [address] [place] [address] PCP - General Family Medicine 01/20/18 10/28/23 Tiffanie Aveyr MD [address] [place] [address] PCP - General Family Medicine 12/22/23 Stew Hankins III, MD Gastroenterology 10/25/10 Kirby Kaur MD [address] [place] [address] Family Medicine 12/23/11 Nicholas Cristobal MD [address] [place] [address] [address] [place] [address] Gastroenterology 08/08/14 Charlie Ayala, PA-C [address] [place] [address] [address] [place] [address] Physician Devulcanizer Charger 02/05/15 Sully Castillo LPN 02/22/15 [place] [address] [place] [address] [address] Pulmonary Disease 01/19/18 Sindi Mcfarland MA 09/22/18 Mao Powell MD [address] [place] [address] [address] Orthopedic Surgery 05/22/21 Jeff [place] MD 613 [address] [address] [place] [id number] Orthopedic Surgery 07/18/21 documented as of this encounter
--- OUTSIDE RECORDS SUMMARY | 2024-12-28 10:40 | XMS_ITS | Encounter Summary ---
Author Organization [facility] Address [address] [place] [address] Care Team Providers Care Gynecologist Name Role Phone Nhi AZUL MD, Morris Wilson Unavailable Haven vailable Kirby Kaur MD Unavailable [phone] Nicholas Cristobal MD Unavailable Doctor, No Primary Care Provider UnavailCharlie Greenberg PA-C Unavailable [phone] Sully Castillo LPN Unavailable Unavailable Julio Samayoa APRN Primary Care Provider [phone] Julio Samayoa APRN Primary Care Provider Florin Vicente MD Unavailable Tiffanie Avery MD Primary Care Provider [phone] Sindi Mcfarland MA Unavailable Unavailable Mao Powell MD Unavailable Jeff Douglas MD Unavailable Tiffanie Avery MD Primary Care Provider Encounter Details Date Type Department Care Team (Late st Contact Info) Description 04/09/2015 Telephone [facility] [address] [place] [address] [address] [place] [address] Charlie Ayala PA-C [address] [place] [address] Social History Tobacco Use Types [...] 9:30 AM EST Office Visit [facility] [address], [address] [place] [address] Marcos Santana APRN [address] [place] [address],[address] [place] [address] documented as of this encounter Visit Diagnoses Not on filedocumented in this encounter Care Teams Gynecologist Relationship Specialty Start Date End Date DoctorOtilia [place] PCP - General Family Medicine 11/30/14 04/25/15 Julio Samayoa APRN [address] [place], [place] [address] PCP - General nurse practitioner adult care 04/26/15 01/19/17 Julio Samayoa APRN [address] [place], [place] [address] PCP - General Family Practice 01/20/17 01/19/18 Tiffanie Avery MD [address] [place] [address] PCP - General Family Medicine 01/20/18 10/28/23 Tiffaine Avery MD [address] [place] [address] PCP - General Family Medicine 12/22/23 Stew Hankins III, MD Gastroenterology 10/25/10 Kirby Kaur MD [address] [place] [address] Family Medicine 12/23/11 Nicholas Cristobal MD [address] [place] [address] Gastroenterology 08/08/14 Charlie Ayala, TORIC [address] [place] [address] Physician Cardiograph Operator 02/05/15 Sully Castillo LPN 02/22/15 Florin Vicente MD [address] [place] [address] [address] [place] [id number] Pulmonary Disease 01/19/18 Sindi Mcfarland MA 09/22/18 Mao Powell MD [address] [place] [address] [place] [address] Orthopedic Surgery 05/22/21 Jeff Douglas MD [address] [place] [address] [address] Orthopedic Surgery 07/18/21 documented as of this encounter
--- OUTSIDE RECORDS SUMMARY | 2024-12-28 10:40 | XMS_ITS | Encounter Summary ---
Author Organization [facility] Address [address] [place] [address] Care Team Providers Care Topology Professor Name Role Phone Abhi Ruiz MD Primary Care Provider Unavailabl Rikki Stone DO Primary Care Provider [phone] Nhi AZUL MD, Morris Wilson Unavailable Haven Louie Pace MD Primary Care Provider [phone] Kirby Kaur MD Unavailable [phone] Maricruz Burris APRN Primary Care Provide r Nicholas Cristobal MD Unavailable Doctor, No Primary Care Provider UnavailCharlie Greenberg PA-C Unavailable Sully Castillo LPN Unavailable Unavailable Julio Samayoa APRN Primary Care Provider [phone] Julio Samayoa APRN Primary Care Provider [phone] Florin Vicente MD Unavailable Tiffanie Avery MD Primary Care Provider Sindi Mcfarland MA Unavailable Unavailable Mao Powell MD Unavailable [phone] Jeff Douglas MD Unavailable [phone] Tiffanie Avery MD Primary Care Provider Encounter Details Date Type Department Care Team (Late st Contact Info) Description 08/11/1991 Historical Encounter [place], [place] Social History Tobacco Use Types Packs/Day [...] AM EST Office Visit [facility] [address], [address] [place] [address] Marcos Santana APRN [address] [place] [address],[address] [place] [address] documented as of this encounter Visit Diagnoses Not on filedocumented in this encounter Care Teams Topology Professor Relationship Specialty Start Date End Date Abhi Ruiz MD PCP - General 12/29/07 10/04/09 Rikki Painter DO [address] [place] [address] PCP - General Family Medicine 10/05/09 06/12/11 Louie Purdy MD [address] [place] [address] PCP - General Family Medicine 06/13/11 07/05/14 Maricruz Burris APRN [address] [place] [address] PCP - General Nurse Practitioner 07/06/14 11/29/14 Otilia Abreu [place] PCP - General Family Medicine 11/30/14 04/25/15 Julio Samayoa APRN [address] [place] [address] PCP - General nurse practitioner adult care 04/26/15 01/19/17 Julio Samayoa APRN [address] [place] [address] PCP - General Family Practice 01/20/17 01/19/18 Tiffanie Avery MD [address] [place] [address] PCP - General Family Medicine 01/20/18 10/28/23 Tiffanie Avery MD [address] [place] [address] PCP - General Family Medicine 12/22/23 Stew Hankins III, MD Gastroenterology 10/25/10 Kirby Kaur MD [address] [place] [address] [address] Family Medicine 12/23/11 Nicholas Cristobal MD [address] [place] [address] [address] [place] [address] Gastroenterology 08/08/14 Charlie Ayala, PAMindiC [address] [place] [address] [address] [place] [address] Physician Heel Stainer 02/05/15 Sully Castillo LPN 02/22/15 Florin Vicente MD [address] [facility] [address] [address] Pulmonary Disease 01/19/18 Sindi Mcfarland MA 09/22/18 Mao Powell MD [address] [place] [address] [address] Orthopedic Surgery 05/22/21 Jeff [place] MD 613 [address] [facility] [address] [place] [address] Orthopedic Surgery 07/18/21 documented as of this encounter
--- OUTSIDE RECORDS SUMMARY | 2024-12-28 10:40 | XMS_ITS | Encounter Summary ---
Author Organization [facility] Address [address] [place] [address] Care Team Providers Care Functional Tester Typewriters Name Role Phone Abhi Ruiz MD Primary Care Provider Unavailabl Rikki Stone DO Primary Care Provider [phone] Nhi AZUL MD, Morris Wilson Unavailable Haven Louie Pace MD Primary Care Provider Kirby Kaur MD Unavailable [phone] Maricruz Burris APRN Primary Care Provide r Nicholas Cristobal MD Unavailable Doctor, No Primary Care Provider UnavailCharlie Greenberg PA-C Unavailable Sully Castillo LPN Unavailable Unavailable Julio Samayoa APRN Primary Care Provider [phone] Julio Samayoa APRN Primary Care Provider [phone] Florin Vicente MD Unavailable Tiffanie Avery MD Primary Care Provider Sindi Mcfarland MA Unavailable Unavailable Mao Powell MD Unavailable [phone] Jeff Douglas MD Unavailable [phone] Tiffanie Avery MD Primary Care Provider Encounter [...] Encounters Date Type Department Care Team ([facility] st Contact Info) Description 06/12/2025 9:30 AM EST Office Visit [facility] [address], [address] [place] [address] Marcos Santana APRN [address] [place] [address],[address] [place] [address] documented as of this encounter Visit Diagnoses Not on filedocumented in this encounter Care Teams Functional Tester Typewriters Relationship Specialty Start Date End Date Abhi Ruiz MD PCP - General 12/29/07 10/04/09 Rikki Painter DO [address] [place] [address] PCP - General Family Medicine 10/05/09 06/12/11 Louie Purdy MD [address] [place] [address] PCP - General Family Medicine 06/13/11 07/05/14 Maricruz Burris APRN [address] [place] [address] PCP - General Nurse Practitioner 07/06/14 11/29/14 Otilia Abreu [place] PCP - General Family Medicine 11/30/14 04/25/15 Julio Samayoa APRN [address] [place] [address] PCP - General nurse practitioner adult care 04/26/15 01/19/17 Julio Samayoa APRN [address] [place] [facility] [place] [address] PCP - General Family Practice 01/20/17 01/19/18 Tiffanie Avery MD [address] [place] [address] [place] [address] PCP - General Family Medicine 01/20/18 10/28/23 Tiffanie Avery MD [address] [place] [address] PCP - General Family Medicine 12/22/23 Stew Hankins III, MD Gastroenterology 10/25/10 Kirby Kaur MD [address] [place] [address] Family Medicine 12/23/11 Nicholas Cristobal MD [address] [place] [address] [address] [place] [address] Gastroenterology 08/08/14 Charlie Ayala, PA-C [address] [place] [address] [address] [place] [address] Physician Cork Floor Installer 02/05/15 Sully Castillo LPN 02/22/15 [place] [address] [place] [address] [address] Pulmonary Disease 01/19/18 Sindi Mcfarland MA 09/22/18 Mao Powell MD [address] [place] [address] [address] Orthopedic Surgery 05/22/21 Jeff Douglas MD 613 [address] [address] [place] [id number] Orthopedic Surgery 07/18/21 documented as of this encounter
--- OUTSIDE RECORDS SUMMARY | 2024-12-28 10:40 | XMS_ITS | Encounter Summary ---
Author Organization [facility] Address [address] [place] [address] Care Team Providers Care Senior Systems Developer Name Role Phone Nhi AZUL MD, Morris Wilson Unavailable Haven lisailaKirby Woods MD Unavailable Nicholas Cristobal MD Unavailable Charlie Ayala PA-C Unavailable Sully Castillo LPN Unavailable Unavailable Florin Vicente MD Unavailable Sindi Mcfarland MA Unavailable Unavailable Mao Powell MD Unavailable [phone] Jeff Douglas MD Unavailable [phone] Tiffanie Avery MD Primary Care Provider [phone] Reason for Visit * Reason Onset Date Comments Medications Refill 06/22/2024 Encounter Details Date Type Department Care Team (Late st Contact Info) Description 06/22/2024 Refill [facility] [address] [place] [address] Julio Samayoa APRN [address] [place] [address] Stable angina pectoris; 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 No 12/29/2023 Housing Stability Vital [...] time in the past 12 m [facility], were you homeless or living in a half-way (including now)? 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, without long-term current use of insulin (HCC) Essential hypertension Unspecified essential hypertension documented in this encounter Additional Health Concerns Assessment Noted Time PHQ-9 Depression Total Score: 0 04/01/20 19 2:31 PM EST documented as of this encounter Care Teams Senior Systems Developer Relationship Specialty Start Date End Date Tiffanie Avery MD [facility] [place] [address] PCP - General Family Medicine 12/22/23 Stew Hankins III, MD Gastroenterology 10/25/10 Kirby Kaur MD [address] [place] [address] [address] [place] [address] Family Medicine 12/23/11 Nicholas Cristobal MD [address] [place] [address] [place] [address] Gastroenterology 08/08/14 Charlie Ayala, ALKA [address] [place] [address] [place] [address] Physician Ribbon Weaver 02/05/15 Sully Castillo LPN 02/22/15 [place] [address] [place] [address] [place] [address] Pulmonary Disease 01/19/18 Sindi Mcfarland MA 09/22/18 Mao Powell MD [address] [place] [address] [place] [address] Orthopedic Surgery 05/22/21 Jeff Douglas MD [address] [place] [address] Orthopedic Surgery 07/18/21 documented as of this encounter
--- OUTSIDE RECORDS SUMMARY | 2024-12-28 10:40 | XMS_ITS | Encounter Summary ---
Author Organization [facility] Address [address] [place] [address] Care Team Providers Care Employment Agency Manager Name Role Phone Nhi AZUL MD, Morris Wilson Unavailable Haven lisailable Louie Purdy MD Primary Care Provider [phone] Kirby Kaur MD Unavailable [phone] Maricruz Burris APRN Primary Care Provide r Nicholas Cristobal MD Unavailable Doctor, No Primary Care Provider UnavailCharlie Greenberg PA-C Unavailable Sully Castillo LPN Unavailable Unavailable Julio Samayoa APRN Primary Care Provider [phone] Julio Samayoa APRN Primary Care Provider [phone] Florin Vicente MD Unavailable Tiffanie Avery MD Primary Care Provider [phone] Sindi Mcfarland MA Unavailable Unavailable Mao Powell MD Unavailable [phone] Jeff Douglas MD Unavailable [phone] Tiffanie Avery MD Primary Care Provider [phone] Reason for Visit * Reason Onset Date Comments Medications Refill 09/02/2011 Encounter Details Date Type Department Care Team (Late st Contact Info) Description 09/02/2011 Refill [facility] [address] [place] [address] Louie Purdy MD [address] [place] [address] DM (diabetes mellitus) Social History Tobacco Use [...] AM EST Office Visit [facility] [address] [place] [address] Marcos Santana APRN [address] [place], [place] [address] [place] [address] documented as of this encounter Visit Diagnoses Diagnosis DM (diabetes mellitus) (HCC) Type II or unspecified type diabetes mellitus without mention of complication, not stated as uncontrolled documented in this encounter Care Teams Employment Agency Manager Relationship Specialty Start Date End Date Louie Purdy MD [address] [place] [address] PCP - General Family Medicine 06/13/11 07/05/14 Maricruz Burris, FINANCIAL SERVICE PROFESSIONAL [address] [place] [address] PCP - General Nurse Practitioner 07/06/14 11/29/14 [facility] [place] PCP - General Family Medicine 11/30/14 04/25/15 Julio Samayoa APRN [address] [place] [address] PCP - General nurse practitioner adult care 04/26/15 01/19/17 Julio Samayoa APRN [address] [place] [address] PCP - General Family Practice 01/20/17 01/19/18 Tiffanie Avery MD [address] [place] [id number] PCP - General Family Medicine 01/20/18 10/28/23 Tiffanie Avery MD [address] [place] [address] PCP - General Family Medicine 12/22/23 Stew Hankisn III, MD Gastroenterology 10/25/10 Kirby Kaur MD [address] [place] [address] [address] [place] [address] Family Medicine 12/23/11 Nicholas Cristobal MD [address] [place] [address] Gastroenterology 08/08/14 Charlie Ayala, TORIC [address] [place], [place] [address] Physician Control Clerk Food And Beverage 02/05/15 Sully Castillo LPN 02/22/15 Florin Vicente MD [address] [facility] [address] [place], [place] [address] Pulmonary Disease 01/19/18 Sindi Mcfarland MA 09/22/18 Mao Powell MD [address] [place] [address] Orthopedic Surgery 05/22/21 Jeff Douglas MD [address] [place] [address] Orthopedic Surgery 07/18/21 documented as of this encounter
--- OUTSIDE RECORDS SUMMARY | 2024-12-28 10:40 | XMS_ITS | Encounter Summary ---
Author Organization [facility] Address [address] [place] [address] Care Team Providers Care Radiation Physicist Name Role Phone Abhi Ruiz MD Primary Care Provider Unavailabl Rikki Stone DO Primary Care Provider [phone] Nhi AZUL MD, Morris Wilson Unavailable Haven Louie Pace MD Primary Care Provider Kirby Kaur MD Unavailable [phone] Maricruz Burris APRN Primary Care Provide r Nicholas Cristobal MD Unavailable Doctor, No Primary Care Provider UnavailCharlie Greenberg PA-C Unavailable Sully Castillo LPN Unavailable Unavailable Julio Samayoa APRN Primary Care Provider [phone] Julio Samayoa APRN Primary Care Provider [phone] Florin Vicente MD Unavailable Tiffanie Avery MD Primary Care Provider [phone] Sindi Mcfarland MA Unavailable Unavailable Mao Powell MD Unavailable [phone] Jeff Douglas MD Unavailable [phone] Tiffanie Avery MD Primary Care Provider Encounter [...] ([facility] st Contact Info) Description 06/12/2025 9:30 AM EST Office Visit [facility] [address], [address] [place] [address] Marcos Santana APRN [address] [place] [address],[address] [place] [address] documented as of this encounter Visit Diagnoses Not on filedocumented in this encounter Care Teams Radiation Physicist Relationship Specialty Start Date End Date Abhi Ruiz MD PCP - General 12/29/07 10/04/09 Rikki Painter DO [address] [place] [address] PCP - General Family Medicine 10/05/09 06/12/11 Louie Purdy MD [address] [place] [address] PCP - General Family Medicine 06/13/11 07/05/14 Maricruz Burris APRN [address] [place] [address] PCP - General Nurse Practitioner 07/06/14 11/29/14 Otilia Abreu [place] PCP - General Family Medicine 11/30/14 04/25/15 Julio Samayoa APRN [address] [place] [address] PCP - General nurse practitioner adult care 04/26/15 01/19/17 Julio Samayoa APRN [address] [place] [place] [address] PCP - General Family Practice 01/20/17 01/19/18 Tiffanie Avery MD [address] [place] [address] [place] [address] PCP - General Family Medicine 01/20/18 10/28/23 Tiffanie Avery MD [address] [place] [address] PCP - General Family Medicine 12/22/23 Stew Hankins III, MD Gastroenterology 10/25/10 Kirby Kaur MD [address] [place] [address] Family Medicine 12/23/11 Nicholas Cristobal MD [address] [place] [address] [address] [place] [address] Gastroenterology 08/08/14 Charlie Ayala, PA-C [address] [place] [address] [address] [place] [address] Physician Development Representative 02/05/15 Sully Castillo LPN 02/22/15 [place] [address] [place] [address] [address] Pulmonary Disease 01/19/18 Sindi Mcfarland MA 09/22/18 Mao Powell MD [address] [place] [address] [address] Orthopedic Surgery 05/22/21 Jeff Douglas MD 613 [address] [address] [place] [id number] Orthopedic Surgery 07/18/21 documented as of this encounter
--- OUTSIDE RECORDS SUMMARY | 2024-12-28 10:40 | XMS_ITS | Encounter Summary ---
Author Organization [facility] Address [address] [place] [address] Care Team Providers Care Salon Supervisor Name Role Phone Abhi Ruiz MD Primary Care Provider Unavailabl Rikki Stone DO Primary Care Provider [phone] Nhi AZUL MD, Morris Wilson Unavailable Haven Louie Pace MD Primary Care Provider Kirby Kaur MD Unavailable [phone] Maricruz Burris APRN Primary Care Provide r Nicholas Cristobal MD Unavailable Doctor, No Primary Care Provider UnavailCharlie Greenberg PA-C Unavailable Sully Castillo LPN Unavailable Unavailable Julio Samayoa APRN Primary Care Provider [phone] Julio Samayoa APRN Primary Care Provider [phone] Florin Vicente MD Unavailable Tiffanie Avery MD Primary Care Provider Sindi Mcfarland MA Unavailable Unavailable Mao Powell MD Unavailable [phone] Jeff Douglas MD Unavailable [phone] Tiffanie Avery MD Primary Care Provider [phone] Encounter Details Date Type Department Care Team [...] 9:30 AM EST Office Visit [facility] [address], [address] [place] [address] Marcos Santana APRN [address] [place] [address],[address] [place] [address] documented as of this encounter Visit Diagnoses Not on filedocumented in this encounter Care Teams Salon Supervisor Relationship Specialty Start Date End Date Abhi Ruiz MD PCP - General 12/29/07 10/04/09 Rikki Painter DO [address] [place] [address] PCP - General Family Medicine 10/05/09 06/12/11 Louie Purdy MD [address] [place] [address] PCP - General Family Medicine 06/13/11 07/05/14 Maricruz Burris APRN [address] [place] [address] PCP - General Nurse Practitioner 07/06/14 11/29/14 Otilia Abreu [place], [place] PCP - General Family Medicine 11/30/14 04/25/15 Julio Samayoa APRN [address] [place] [address] PCP - General nurse practitioner adult care 04/26/15 01/19/17 Julio Samayoa APRN [address] [place] [facility] [place] [address] PCP - General Family Practice 01/20/17 01/19/18 Tiffanie Avery MD [address] [place] [address] [place] [address] PCP - General Family Medicine 01/20/18 10/28/23 Tiffanie Avery MD [address] [place] [address] PCP - General Family Medicine 12/22/23 Stew Hankins III, MD Gastroenterology 10/25/10 Kirby Kaur MD [address] [place] [address] Family Medicine 12/23/11 Nicholas Cristobal MD [address] [place] [address] [address] [place] [address] Gastroenterology 08/08/14 Charlie Ayala, PA-C [address] [place] [address] [address] [place] [address] Physician History Department Chair 02/05/15 Sully Castillo LPN 02/22/15 [place] [address] [place] [address] [address] Pulmonary Disease 01/19/18 Sindi Mcfarland MA 09/22/18 Mao Powell MD [address] [place] [address] [address] Orthopedic Surgery 05/22/21 Jeff Douglas MD 613 23[facility] [address] [place] [id number] Orthopedic Surgery 07/18/21 documented as of this encounter
--- OUTSIDE RECORDS SUMMARY | 2024-12-28 10:40 | XMS_ITS | Encounter Summary ---
Author Organization [facility] Address [address] [place] [address] Care Team Providers Care Forming And Assembling Supervisor Name Role Phone Nhi AZUL MD, Morris Wilson Unavailable Haven lisailaKirby Woods MD Unavailable [phone] Nicholas Cristobal MD Unavailable Charlie Ayala PA-C Unavailable [phone] Sully Castillo LPN Unavailable Unavailable Florin Vicente MD Unavailable Sindi Mcfarland MA Unavailable Unavailable Mao Powell MD Unavailable Jeff Douglas MD Unavailable Tiffanie Avery MD Primary Care Provider [phone] Encounter Details Date Type Department Care Team (Late st Contact Info) Description 05/10/2024 Orders Only [facility] [address] [place] [address] Julio Samayoa APRN [address] [place] [address] 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 No 12/29/2023 Housing Stability Vital [...] time in the past 12 m [facility], were you homeless or living in a snf (including now)? 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 Type 2 diabetes mellitus without complication, unspecified whether meterman insulin use (HCC) documented in this encounter Additional Health Concerns Assessment Noted Time PHQ-9 Depression Total Score: 0 04/01/20 19 2:31 PM EST documented as of this encounter Care Teams Forming And Assembling Supervisor Relationship Specialty Start Date End Date Tiffanie Avery MD [address] [place] [address] PCP - General Family Medicine 12/22/23 Stew Hankins III, MD Gastroenterology 10/25/10 Kirby Kaur MD [address] [place] [address] [address] [place] [address] Family Medicine 12/23/11 Nicholas Cristobal MD [address] [place] [address] [address] [facility] [place] [address] Gastroenterology 08/08/14 Charlie Ayala, PAMindiC [address] [place] [address] [address] [place] [address] Physician Irrigation Equipment Mechanic 02/05/15 Sully Castillo LPN 02/22/15 Florin Vicente MD [address] [facility] [address] [place] [address] Pulmonary Disease 01/19/18 Sindi Mcfarland MA 09/22/18 Mao Powell MD [address] [place] [address] [place] [address] Orthopedic Surgery 05/22/21 Jeff Douglas MD [address] [place] [address] [address] Orthopedic Surgery 07/18/21 documented as of this encounter
--- OUTSIDE RECORDS SUMMARY | 2024-12-28 10:40 | XMS_ITS | Encounter Summary ---
Author Organization [facility] Address [address] [place] [address] Care Team Providers Care Oil Painter Name Role Phone Nhi AZUL MD, Morris Wilson Unavailable Haven vailable Kirby Kaur MD Unavailable Nicholas Cristobal MD Unavailable Doctor, No Primary Care Provider UnavailCharlie Greenberg PA-C Unavailable Sully Castillo LPN Unavailable Unavailable Julio Samayoa APRN Primary Care Provider [phone] Julio Samayoa APRN Primary Care Provider [phone] Florin Vicente MD Unavailable Tiffanie Avery MD Primary Care Provider [phone] Sindi Mcfarland MA Unavailable Unavailable Mao Powell MD Unavailable Jeff Douglas MD Unavailable Tiffanie Avery MD Primary Care Provider Encounter Details Date Type Department Care Team (Late st Contact Info) Description 04/17/2015 Orders Only [facility] [address] [address] [place] [address] Clem Westbrook MD [address] [place] [address] Erectile dysfunction, unspecified erectile dysfunction [...] Upcoming Encounters Date Type Department Care Team ([facility] Contact Info) Description 06/12/2025 9:30 AM EST Office Visit [facility] [address], [address] [place] [address] Marcos Santana APRN [address] [place] [address],[address] [place] [address] documented as of this encounter Visit Diagnoses Diagnosis Erectile dysfunction, unspecified erectile dysfunction type- Primary documented in this encounter Care Teams Oil Painter Relationship Specialty Start Date End Date Doctor, Otilia [place] PCP - General Family Medicine 11/30/14 04/25/15 Julio Samayoa APRN [address] [place] [address] PCP - General nurse practitioner adult care 04/26/15 01/19/17 Julio Samayoa APRN [address] [place] [address] PCP - General Family Practice 01/20/17 01/19/18 Tiffanie Avery MD [address] [place] [address] PCP - General Family Medicine 01/20/18 10/28/23 Tiffanie Avery MD [address] [place] [address] PCP - General Family Medicine 12/22/23 Stew Hankins III, MD Gastroenterology 10/25/10 Kirby Kaur MD [address] [place] [address] Family Medicine 12/23/11 Nicholas Cristobal MD [address] [place] [address] Gastroenterology 08/08/14 Charlie Ayala, TORIC [address] [place] [address] Physician Acid Tender 02/05/15 Sully Castillo, PRINCESS 02/22/15 Florin Vicente MD [address] [place] [address] [place] [address] Pulmonary Disease 01/19/18 Sindi Mcfarland MA 09/22/18 Mao Powell MD [address] [place] [address] Orthopedic Surgery 05/22/21 Jeff Douglas MD [address] [place] [address] Orthopedic Surgery 07/18/21 documented as of this encounter
--- OUTSIDE RECORDS SUMMARY | 2024-12-28 10:40 | XMS_ITS | Encounter Summary ---
Author Organization [facility] Address [address] [place] [address] Care Team Providers Care Vacuum Cleaner Operator Name Role Phone Nhi AZUL MD, Morris Wilson Unavailable Haven lisailaKirby Woosd MD Unavailable [phone] Nicholas Cristobal MD Unavailable Charlie Ayala PA-C Unavailable Sully Castillo LPN Unavailable Unavailable Florin Vicente MD Unavailable Sindi Mcfarland MA Unavailable Unavailable Mao Powell MD Unavailable Jeff Douglas MD Unavailable [phone] Tiffanie Avery MD Primary Care Provider [phone] Reason for Visit * Reason Onset Date Comments Medications Refill 11/10/2024 Encounter Details Date Type Department Care Team (Late st Contact Info) Description 11/10/2024 Refill [facility] [address] [place] [address] [place] [address] Tiffanie Avery MD [address] [place] [address] Coronary artery disease involving port lions coronary artery of port lions heart without angina pectoris; Palpitations; Shortness of breath Social History Tobacco Use Types Packs/Day Years Used Date Smoking Tobacco: Former Cigarettes 1 20 1 - 03/15/1986 Smokeless Tobacco: Never Alcohol Use Standard Drinks/Week Comments No 0 (1 standard drink = 0.6 oz pur e alcohol) [facility] Utilities Answer Date Recorded In [...] place to sleep or slept in a mcc (including now)? No 12/29/2023 Housing Stability Vital Sign Answer [place] e Recorded In the last 12 months, was t here a time when you were not able to pay the mortgage or rent on time? No 05/10/2024 In the past 12 months, how m any times have you moved where you were living? 0 05/10/2024 At any time in the past 12 m [place], were you homeless or living in a mcc (including now)? No 05/10/2024 Sex and Gender [...] Description 06/12/2025 9:30 AM EST Office Visit [facility] [address] [place] [address] Marcos Santana APRN [address] [place], [place] [address] [place] [address] documented as of this encounter Visit Diagnoses Diagnosis Coronary artery disease involving port lions coronary artery of port lions heart without angina pectoris Palpitations Shortness of breath documented in this encounter Additional Health Concerns Assessment Noted Time PHQ-9 Depression Total Score: 0 04/01/20 19 2:31 PM EST documented as of this encounter Care Teams Vacuum Cleaner Operator Relationship Specialty Start Date End Date Tiffanie Avery MD [address] [place] [address] PCP - General Family Medicine 12/22/23 Stew Hankins III, MD Gastroenterology 10/25/10 Kirby Kaur MD [address] [place] [address] [place] [address] Family Medicine 12/23/11 Nicholas Cristobal MD [address] [place] [address] Gastroenterology 08/08/14 Charlie Ayala PA-C [address] [place] [address] Physician Entry Level Buyer 02/05/15 Sully Castillo LPN 02/22/15 [place] [address] [place] [address] [address] Pulmonary Disease 01/19/18 Sindi Mcfarland MA 09/22/18 Mao Powell MD [address] [place] [address] [address] Orthopedic Surgery 05/22/21 Jeff Douglas MD [address] [place] [address] Orthopedic Surgery 07/18/21 documented as of this encounter
--- OUTSIDE RECORDS SUMMARY | 2024-12-28 10:40 | XMS_ITS | Encounter Summary ---
Author Organization [facility] Address [address] [place] [address] Care Team Providers Care Preschool Head Teacher Name Role Phone Nhi AZUL MD, Morris Wilson Unavailable Haven vailable Kirby Kaur MD Unavailable [phone] Nicholas Cristobal MD Unavailable Doctor, No Primary Care Provider UnavailCharlie Greenberg PA-C Unavailable Sully Castillo LPN Unavailable Unavailable Julio Samayoa APRN Primary Care Provider [phone] Julio Samayoa APRN Primary Care Provider [phone] Florin Vicente MD Unavailable Tiffanie Avery MD Primary Care Provider [phone] Sindi Mcfarland MA Unavailable Unavailable Mao Powell MD Unavailable [phone] Jeff Douglas MD Unavailable [phone] Tiffanie Avery MD Primary Care Provider [phone] Reason for Visit * Reason Onset Date Comments Phone Advice For Symptoms 04/03/2015 pt nee ds labs to check anemia Encounter Details Date Type Department Care Team (Late st Contact Info) Description 04/03/2015 Telephone [facility] [address] [place] [address] [address] [place] [address] Charlie Ayala PA-C [address] [place] [address] Phone Advice For Symptoms (pt needs labs [...] AM EST Office Visit [facility] [address], [address] [place] [address] Marcos Santana, SEAT MENDER [address] [place], [place] [address] [place] [address] documented as of this encounter Results * [...] - 31.1 pg 04/05/2015 4:22 PM EST [facility] MCHC 32.8 32.6 - 34.9 g/dL 04/05/2015 4:22 PM EST [facility] RDW 13.4 11.5 - 14.5 % 04/05/2015 4:22 PM EST [facility] MPV 8.5 6.9 - 9.9 fL 04/05/2015 4:22 PM EST [facility] Platelet Cnt 233 146 - 374 10*3/uL 04/05/2015 4:22 PM EST [facility] Neutrophils 60.4 48.8 - 75.9 % 04/05/2015 4:22 PM EST [facility] Lymphocytes 30.3 16.3 - 43.9 % 04/05/2015 4:22 PM EST [facility] Monocytes 6.1 2.1 - 13.3 % 04/05/2015 4:22 PM EST [facility] Eosinophils 2.9 0.3 - 5.0 % 04/05/2015 4:22 PM EST [facility] Basophils 0.3 0.0 - 1.1 % 04/05/2015 4:22 PM EST [facility] Neutrophils Abs 4.3 1.6 - 8.5 10*3/uL 04/05/2015 4:22 PM EST [facility] Lymphocytes Abs 2.2 0.6 - 4.9 10*3/uL 04/05/2015 4:22 PM EST [facility] Monocytes Abs 0.4 0.0 - 1.4 10*3/uL 04/05/2015 4:22 PM EST [facility] Eosinophils Abs 0.2 0.0 - 0.5 10*3/uL 04/05/2015 4:22 PM EST [facility] Basophils Abs 0.0 0.0 - 0.1 10*3/uL 04/05/2015 4:22 PM EST [facility] 04/05/2015 12:0 3 PM EST 04/05/2015 4:13 PM EST us Charlie Ayala PA-C HEMATOLOGY ORDERABLES Final Result [facility] [address] [place] [address] documented in this encounter Visit Diagnoses Diagnosis Iron deficiency- Primary Other disorders of iron metabolism documented in this encounter Care Teams Preschool Head Teacher Relationship Specialty Start Date End Date Doctor, [facility] [place] PCP - General Family Medicine 11/30/14 04/25/15 Julio Samayoa APRN [address] [place], [place] [id number] PCP - General nurse practitioner adult care 04/26/15 01/19/17 Julio Samayoa APRN [address] [facility] [place] [address] PCP - General Family Practice 01/20/17 01/19/18 Tiffanie Avery MD [address] [place] [id number] PCP - General Family Medicine 01/20/18 10/28/23 Tiffanie Avery MD [address] [place] [address] PCP - General Family Medicine 12/22/23 Stew Hankins III, MD Gastroenterology 10/25/10 Kirby Kaur MD [address] [place], [place] [address] [place] [address] Family Medicine 12/23/11 Nicholas Cristobal MD [address] [place] [address] Gastroenterology 08/08/14 Charlie Ayala, PA-C [address] [place] [address] Physician Deputy County Attorney 02/05/15 Sully Castillo LPN 02/22/15 Florin Vicente MD [address] [place] [address] [address] Pulmonary Disease 01/19/18 Sindi Mcfarland MA 09/22/18 Mao Powell MD [address] [place] [address] [address] Orthopedic Surgery 05/22/21 Jeff Douglas MD [address] [place] [address] [address] Orthopedic Surgery 07/18/21 documented as of this encounter
--- OUTSIDE RECORDS SUMMARY | 2024-12-28 10:40 | XMS_ITS | Encounter Summary ---
Author Organization [facility] Address [address] [place] [address] Care Team Providers Care Vp Legal Affairs Name Role Phone Nhi AZUL MD, Morris Wilson Unavailable Haven vailable Kirby Kaur MD Unavailable [phone] Nicholas Cristobal MD Unavailable Doctor, [place] Primary Care Provider UnavailCharlie Greenberg PA-C Unavailable [phone] Sully Castillo LPN Unavailable Unavailable Julio Samayoa APRN Primary Care Provider [phone] Julio Samayoa APRN Primary Care Provider [phone] Florin Vicente MD Unavailable Tiffanie Avery MD Primary Care Provider [phone] Sindi Mcfarland MA Unavailable Unavailable Mao Powell MD Unavailable [phone] Jeff Douglas MD Unavailable [phone] Tiffanie Avery MD Primary Care Provider [phone] Reason for Visit * Reason Onset Date Comments Medication Not Covered by Insurance 04/17/2015 Encounter Details Date Type Department Care Team (Late st Contact Info) Description 04/17/2015 Telephone [facility] [place] [address] [facility] [address] [place] [address] Doctor, [place], [place] Medication Not Covered by Insurance Social [...] you will send him a prescription to [facility]. documented in this encounter Plan of Treatment Upcoming Encounters Date Type Department Care Team ([facility] Contact Info) Description 06/12/2025 9:30 AM EST Office Visit [facility] [address], [address] [place] [address] Marcos Santana APRN [address] [place] [address],[address] [place] [address] documented as of this encounter Visit Diagnoses Not on filedocumented in this encounter Care Teams Vp Legal Affairs Relationship Specialty Start Date End Date Doctor, [place] [facility] [place] PCP - General Family Medicine 11/30/14 04/25/15 Julio Samayoa APRN [address] [place] [address] PCP - General nurse practitioner adult care 04/26/15 01/19/17 Julio Samayoa APRN [address] [place] [address] PCP - General Family Practice 01/20/17 01/19/18 Tiffanie Avery MD [address] [place] [address], [place] [address] PCP - General Family Medicine 01/20/18 10/28/23 Tiffanie Avery MD [address] [place] [address] [place] [address] PCP - General Family Medicine 12/22/23 Stew Hankins III, MD Gastroenterology 10/25/10 Kirby Kaur MD [address] [place] [address] [address] Family Medicine 12/23/11 Nicholas Cristobal MD [address] [place] [address] [address] [place] [address] Gastroenterology 08/08/14 Charlie Ayala PA-C [address] [place] [address] [address] [place] [address] Physician Porcelain Slusher 02/05/15 Sully Castillo LPN 02/22/15 [place] [address] [place] [address] [address] Pulmonary Disease 01/19/18 Sindi Mcfarland [place] 09/22/18 Mao Powell MD [address] [place] [address] [address] Orthopedic Surgery 05/22/21 Jeff Douglas MD [address] [place] [address] [address] Orthopedic Surgery 07/18/21 documented as of this encounter
--- OUTSIDE RECORDS SUMMARY | 2024-12-28 10:40 | XMS_ITS | Encounter Summary ---
Author Organization [facility] Address [address] [place] [address] Care Team Providers Care Child Care Supervisor Name Role Phone Abhi Ruiz MD Primary Care Provider Unavailabl Rikki Stone DO Primary Care Provider [phone] Nhi AZUL MD, Morris Wilson Unavailable Haven Louie Pace MD Primary Care Provider Kirby Kaur MD Unavailable [phone] Maricruz Burris APRN Primary Care Provide r Nicholas Cristobal MD Unavailable Doctor, No Primary Care Provider UnavailCharlie Greenberg PA-C Unavailable Sully Castillo LPN Unavailable Unavailable Julio Samayoa APRN Primary Care Provider [phone] Julio Samayoa APRN Primary Care Provider [phone] Florin Vicente MD Unavailable Tiffanie Avery MD Primary Care Provider Sindi Mcfarland MA Unavailable Unavailable Mao Powell MD Unavailable [phone] Jeff Douglas MD Unavailable [phone] Tiffanie Avery MD Primary Care Provider [phone] Encounter Details Date Type Department Care Team [...] 9:30 AM EST Office Visit [facility] [address], [address] [place] [address] Marcos Santana APRN [address] [place] [address],[address] [place] [address] documented as of this encounter Visit Diagnoses Not on filedocumented in this encounter Care Teams Child Care Supervisor Relationship Specialty Start Date End Date Abhi Ruiz MD PCP - General 12/29/07 10/04/09 Rikki Painter DO [address] [place] [address] PCP - General Family Medicine 10/05/09 06/12/11 Louie Purdy MD [address] [place] [address] PCP - General Family Medicine 06/13/11 07/05/14 Maricruz Burris APRN [address] [place] [address] PCP - General Nurse Practitioner 07/06/14 11/29/14 Otilia Abreu [place], [place] PCP - General Family Medicine 11/30/14 04/25/15 Julio Samayoa APRN [address] [place] [address] PCP - General nurse practitioner adult care 04/26/15 01/19/17 Julio Samayoa APRN [address] [place] [place] [address] PCP - General Family Practice 01/20/17 01/19/18 Tiffanie Avery MD [address] [place] [address] [place] [address] PCP - General Family Medicine 01/20/18 10/28/23 Tiffanie Avery MD [address] [place] [address] PCP - General Family Medicine 12/22/23 Stew Hankins III, MD Gastroenterology 10/25/10 Kirby Kaur MD [address] [place] [address] Family Medicine 12/23/11 Nicholas Cristobal MD [address] [place] [address] [address] [place] [address] Gastroenterology 08/08/14 Charlie Ayala, PA-C [address] [place] [address] [address] [place] [address] Physician Transport Operations Inspector 02/05/15 Sully Castillo LPN 02/22/15 [place] [address] [place] [address] [address] Pulmonary Disease 01/19/18 Sindi Mcfarland MA 09/22/18 Mao Powell MD [address] [place] [address] [address] Orthopedic Surgery 05/22/21 Jeff Douglas MD 613 [address] [address] [place] [id number] Orthopedic Surgery 07/18/21 documented as of this encounter
--- OUTSIDE RECORDS SUMMARY | 2024-12-28 10:40 | XMS_ITS | Encounter Summary ---
Author Organization [facility] Address [address] [place] [address] Care Team Providers Care Funeral Location Manager Name Role Phone Nhi AZUL MD, Morris Wilson Unavailable Haven lisailaKirby Woods MD Unavailable [phone] Nicholas Cristobal MD Unavailable Charlie Ayala PA-C Unavailable Sully Castillo LPN Unavailable Unavailable Florin Vicente MD Unavailable Sindi Mcfarland MA Unavailable Unavailable Mao Powell MD Unavailable Jeff Douglas MD Unavailable Tiffanie Avery MD Primary Care Provider [phone] Reason for Visit * Reason Onset Date Comments Other 12/10/2023 Encounter Details Date Type Department Care Team (Late st Contact Info) Description 12/10/2023 Telephone [facility] [address], [address] [place] [address] Joann Ayoub MD [address] [place] [address] [place] [address] Other Social History Tobacco Use Types [...] to do a peer to peer at [phone] ref [id number]. documented in this encounter Plan of Treatment Upcoming Encounters Date Type Department Care Team (Late st Contact Info) Description 06/12/2025 9:30 AM EST Office Visit [facility] [address], [address] [place] [address] Marcos Santana APRN [address] [place] [address],[address] [place], [place] [address] documented as of this encounter Visit Diagnoses Not on filedocumented in this encounter Additional Health Concerns Assessment Noted Time PHQ-9 Depression Total Score: 0 04/01/20 19 2:31 PM EST documented as of this encounter Care Teams Funeral Location Manager Relationship Specialty Start Date End Date Tiffanie Avery MD [address] [place] [address] PCP - General Family Medicine 12/22/23 Stew Hankins III, MD Gastroenterology 10/25/10 Kirby Kaur MD [address] [place] [address] [address] [place] [address] Family Medicine 12/23/11 Nicholas Cristobal MD [address] [place] [address] [address] [place] [address] Gastroenterology 08/08/14 Charlie Ayala PA-C [address] [place] [address] [address] [place] [address] Physician French Professor 02/05/15 Sully Castillo LPN 02/22/15 Florin Vicente MD [address] [place] [address] [address] Pulmonary Disease 01/19/18 Sindi Mcfarland MA 09/22/18 Mao Powell MD [address] [place] [address] [place] [address] Orthopedic Surgery 05/22/21 Jeff Douglas MD [address] [place] [address] [address] Orthopedic Surgery 07/18/21 documented as of this encounter
--- OUTSIDE RECORDS SUMMARY | 2024-12-28 10:40 | XMS_ITS | Encounter Summary ---
Author Organization [facility] Address [address] [place] [address] Care Team Providers Care Sorter Laundry Articles Name Role Phone Abhi Ruiz MD Primary Care Provider Unavailabl Rikki Stone DO Primary Care Provider [phone] Nhi AZUL MD, Morris Wilson Unavailable Haven Louie Pace MD Primary Care Provider Kirby Kaur MD Unavailable [phone] Maricruz Burris APRN Primary Care Provide r Nicholas Cristobal MD Unavailable Doctor, No Primary Care Provider UnavailCharlie Greenberg-Lobito Unavailable Sully Castillo LPN Unavailable Unavailable Julio Samayoa APRN Primary Care Provider [phone] Julio Samayoa APRN Primary Care Provider [phone] Florin Vicente MD Unavailable Tiffanie Avery MD Primary Care Provider Sindi Mcfarland MA Unavailable Unavailable Mao Powell MD Unavailable [phone] Jeff Douglas MD Unavailable [phone] Tiffanie Avery MD Primary Care Provider Encounter Details Date Type Department Care Team (Late st Contact Info) Description 08/30/2002 Historical Encounter Global Rikki Collier [address] [place] [address] Social History Tobacco Use Types Packs/Day Years [...] AM EST Office Visit [facility] [address], [address] [place] [address] Marcos Santana APRN [address] [place] [address],[address] [place] [address] documented as of this encounter Visit Diagnoses Not on filedocumented in this encounter Care Teams Sorter Laundry Articles Relationship Specialty Start Date End Date Abhi Ruiz MD PCP - General 12/29/07 10/04/09 Rikki Painter DO [address] [place] [address] PCP - General Family Medicine 10/05/09 06/12/11 Louie Purdy MD [address] [place] [address] PCP - General Family Medicine 06/13/11 07/05/14 Maricruz Burris PHYSIOLOGICAL CHEMIST [address] [place] [address] PCP - General Nurse Practitioner 07/06/14 11/29/14 Otilia Abreu [place] PCP - General Family Medicine 11/30/14 04/25/15 Julio Samayoa APRN [address] [place] [address] PCP - General nurse practitioner adult care 04/26/15 01/19/17 Julio Samayoa APRN [address] [place] [address] PCP - General Family Practice 01/20/17 01/19/18 Tiffanie Avery MD [address] [place] [address] PCP - General Family Medicine 01/20/18 10/28/23 Tiffanie Avery MD [address] [place] [address] PCP - General Family Medicine 12/22/23 Stew Hankins III, MD Gastroenterology 10/25/10 Kirby Kaur MD [address] [place] [address] [place] [address] Family Medicine 12/23/11 Nicholas Cristobal MD [address] [place] [address] [address] [place] [address] Gastroenterology 08/08/14 Charlie Ayala, PAMindiC [address] [place] [address] [address] [place] [address] Physician Trouble Dispatcher 02/05/15 Sully Castillo LPN 02/22/15 [place] [address] [place] [address] [address] Pulmonary Disease 01/19/18 Sindi Mcfarland MA 09/22/18 Mao Powell MD [address] [place] [address] [address] Orthopedic Surgery 05/22/21 Jeff Douglas MD [address] [place] [address] Orthopedic Surgery 07/18/21 documented as of this encounter
--- OUTSIDE RECORDS SUMMARY | 2024-12-28 10:40 | XMS_ITS | Encounter Summary ---
Author Organization [facility] Address [address] [place] [address] Care Team Providers Care Women'S Soccer Coach Name Role Phone Abhi Ruiz MD Primary Care Provider Unavailabl Rikki Stone DO Primary Care Provider [phone] Nhi AZUL MD, Morris Wilson Unavailable Haven Louie Pace MD Primary Care Provider [phone] Kirby Kaur MD Unavailable [phone] Maricruz Burris APRN Primary Care Provide r Nicholas Cristobal MD Unavailable Doctor, No Primary Care Provider UnavailCharlie Greenberg PA-C Unavailable Sully Castillo LPN Unavailable Unavailable Julio Samayoa APRN Primary Care Provider [phone] Julio Samayoa APRN Primary Care Provider [phone] Florin Vicente MD Unavailable Tiffanie Avery MD Primary Care Provider [phone] Sindi Mcfarland MA Unavailable Unavailable Mao Powell MD Unavailable [phone] Jeff Douglas MD Unavailable [phone] Tiffanie Avery MD Primary Care Provider Encounter [...] AM EST Office Visit [facility] [address], [address] [place] [address] Marcos Santana APRN [address] [place] [address],[address] [place] [address] documented as of this encounter Visit Diagnoses Not on filedocumented in this encounter Care Teams Women'S Soccer Coach Relationship Specialty Start Date End Date Abhi Ruiz MD PCP - General 12/29/07 10/04/09 Rikki Painter DO [address] [place] [address] PCP - General Family Medicine 10/05/09 06/12/11 Louie Purdy MD [address] [place] [address] PCP - General Family Medicine 06/13/11 07/05/14 Maricruz Burris APRN [address] [place] [address] PCP - General Nurse Practitioner 07/06/14 11/29/14 Otilia Abreu [place] PCP - General Family Medicine 11/30/14 04/25/15 Julio Samayoa APRN [address] [place] [address] PCP - General nurse practitioner adult care 04/26/15 01/19/17 Julio Samayoa APRN [address] [facility] [place] [address] PCP - General Family Practice 01/20/17 01/19/18 Tiffanie Avery MD [address] [place] [address] [place] [address] PCP - General Family Medicine 01/20/18 10/28/23 Tiffanie Avery MD [address] [place] [address] PCP - General Family Medicine 12/22/23 Stew Hankins III, MD Gastroenterology 10/25/10 Kirby Kaur MD [address] [place] [address] Family Medicine 12/23/11 Nicholas Cristobal MD [address] [place] [address] [address] [place] [address] Gastroenterology 08/08/14 Charlie Ayala, PA-C [address] [place] [address] 430 [place] [address] Physician Music Intern 02/05/15 Sully Castillo LPN 02/22/15 [place] [address] [place] [address] [address] Pulmonary Disease 01/19/18 Sindi Mcfarland MA 09/22/18 Mao Powell MD [address] [place] [address] [address] Orthopedic Surgery 05/22/21 Jeff Douglas MD 613 [address] [address] [place] [id number] Orthopedic Surgery 07/18/21 documented as of this encounter
--- OUTSIDE RECORDS SUMMARY | 2024-12-28 10:40 | XMS_ITS | Encounter Summary ---
Author Organization [facility] Address [address] [place] [address] Care Team Providers Care Beef Pluck Trimmer Name Role Phone Abhi Ruiz MD Primary Care Provider Unavailabl Rikki Stone DO Primary Care Provider [phone] Nhi AZUL MD, Morris Wilson Unavailable Haven Louie Pace MD Primary Care Provider Kirby Kaur MD Unavailable [phone] Maricruz Burris APRN Primary Care Provide r Nicholas Cristobal MD Unavailable Doctor, No Primary Care Provider UnavailCharlie Greenberg PA-C Unavailable Sully Castillo LPN Unavailable Unavailable Julio Samayoa APRN Primary Care Provider [phone] Julio Samayoa APRN Primary Care Provider [phone] Florin Vicente MD Unavailable Tiffanie Avery MD Primary Care Provider [phone] Sindi Mcfarland MA Unavailable Unavailable Mao Powell MD Unavailable [phone] Jeff Douglas MD Unavailable [phone] Tiffanie Avery MD Primary Care Provider [phone] Encounter Details Date Type Department Care Team [...] AM EST Office Visit [facility] [address], [address] [place] [address] Marcos Santana APRN [address] [place] [address],[address] [place] [address] documented as of this encounter Visit Diagnoses Not on filedocumented in this encounter Care Teams Beef Pluck Trimmer Relationship Specialty Start Date End Date Abhi Ruiz MD PCP - General 12/29/07 10/04/09 Rikki Painter DO [address] [place] [address] PCP - General Family Medicine 10/05/09 06/12/11 Louie Purdy MD [address] [place] [address] PCP - General Family Medicine 06/13/11 07/05/14 Maricruz Burris APRN [address] [place] [address] PCP - General Nurse Practitioner 07/06/14 11/29/14 Otilia Abreu [place] PCP - General Family Medicine 11/30/14 04/25/15 Julio Samayoa APRN [address] [place] [address] PCP - General nurse practitioner adult care 04/26/15 01/19/17 Julio Samayoa APRN [address] [place] [address] PCP - General Family Practice 01/20/17 01/19/18 Tiffanie Avery MD [address] [place] [address] [place] [address] PCP - General Family Medicine 01/20/18 10/28/23 Tiffanie Avery MD [address] [place] [address] PCP - General Family Medicine 12/22/23 Stew Hankins III, MD Gastroenterology 10/25/10 Kirby Kaur MD [address] [place] [address] Family Medicine 12/23/11 Nicholas Cristobal MD [address] [place] [address] [address] [place] [address] Gastroenterology 08/08/14 Charlie Ayala, PA-C [address] [place] [address] [address] [place] [address] Physician Traveling Nurse 02/05/15 Sully Castillo LPN 02/22/15 [place] [address] [place] [address] [address] Pulmonary Disease 01/19/18 Sindi Mcfarland MA 09/22/18 Mao Powell MD [address] [place] [address] [address] Orthopedic Surgery 05/22/21 Jeff Douglas MD [address] [address] [place] [id number] Orthopedic Surgery 07/18/21 documented as of this encounter
[2024-12-28 10:51] VITALS: BP 103/56; PULSE 63; RESP 14; O2SAT 100; BMI 14.8
--- NOTE | 2024-12-28 10:51 | EXP.PAIN.SOA ---
[facility] Disclaimer: The information contained in this section may have been updated after the patient was seen, as this information can be updated by other users. Medical History Hypertension Social History Smoking Status: Unknown if ever smoked alcohol intake: never substance use type: denies use current occupational status: other Travel in the last 8 weeks?: None PM Subjective & Objective Subjective Subjective:: Patient is a pleasant 79-year-old male who presents today for medication refill and follow-up. He rates his pain today a 4 out of 10 and states it is just they are at his low back but has been radiating down into his right upper thigh. Patient denies any new falls. He is currently managed with oxycodone 10 mg 4 times a day. He denies any side effects or changes to his pharmacy. His Nirmal has been reviewed and is appropriate. Review of Systems: General: No recent weight changes, no fever, no sleep disturbances Respiratory: No cough, no shortness of air, no recurring pulmonary infections Cardiovascular/peripheral vascular: No chest pain, no palpitations, no edema, no shortness of breath Gastrointestinal: No new onset incontinence, normal bowel movements reported Genitourinary: No new onset incontinence Musculoskeletal: Low back pain, right hip pain Psychiatric: [Normal mood/affect] Neurological: [Denies weakness in extremities], [denies balance issues] Pain at rest (0-10 scale): 4 Objective Objective:: Physical Exam: General: Alert and oriented x3, no acute distress, pleasant and cooperative Lungs: Respirations even and unlabored, symmetrical chest expansion Eyes: PERRL Musculoskeletal: Flexion and extension of lumbar [spine] somewhat guarded secondary to pain, [antalgic gait noted] Neurological: Speech clear, no gross sensory deficit Has patient had previous pain injection?: No Conservative treatment options previously tried: Prescription medications Length of treatment: Longer than 12 weeks Meds Home Medications and Allergies Home Medications ?Medication ?Instructions ?Recorded ?Confirmed ?Type amlodipine 2.5 mg tablet 2.5 mg PO DAILY blood pressure 12/12/20 11/28/24 History atorvastatin 40 mg tablet 40 mg PO HS Cholesterol 12/12/20 11/28/24 History dapagliflozin propanediol 5 mg 5 mg PO DAILY Diabetes 12/12/20 11/28/24 History tablet isosorbide mononitrate 30 mg 30 mg PO DAILY blood pressure 12/12/20 11/28/24 History tablet,extended release 24 hr lisinopril 10 mg tablet 10 mg PO DAILY blood pressure 12/12/20 11/28/24 History metformin 1,000 mg tablet 1,000 mg PO BID Diabetes 12/12/20 11/28/24 History metoprolol succinate 50 mg 50 mg PO DAILY blood pressure 12/12/20 11/28/24 History tablet,extended release 24 hr omeprazole 20 mg tablet,delayed 20 mg PO DAILY GERD 12/12/20 11/28/24 History release sitagliptin phosphate 50 1 each PO BID Diabetes 12/12/20 11/28/24 History mg-metformin 1,000 mg tablet ticagrelor 90 mg tablet 90 mg PO BID Blood thinner 12/12/20 11/28/24 History zolpidem 10 mg tablet 10 mg PO HS sleep aid 01/09/22 11/28/24 History meloxicam 15 mg tablet 15 mg PO DAILY Pain #30 tabs 08/06/22 11/28/24 Rx tizanidine 4 mg tablet (Zanaflex) 4 mg PO HS Pain 12/05/22 11/28/24 History prednisone 20 mg tablet 20 mg PO BID #10 tabs 04/29/23 11/28/24 Rx baclofen 10 mg tablet 10 mg PO HS #14 tabs 10/26/23 11/28/24 Rx oxycodone 10 mg tablet 10 mg PO QID PRN pain #16 tabs 11/03/24 11/28/24 Rx oxycodone 10 mg tablet 10 mg PO QID PRN pain #120 tabs 11/28/24 Rx New Prescriptions to Start Prescriptions: Allergies Allergy/AdvReac Type Severity Reaction Status Date / Time No Known Drug Allergies Allergy Verified 04/17/21 11:51 Assessment and Plan *Assessment and plan (1) Degenerative disc disease, lumbar: Status: Acute Category: Medical Code(s): M51.369 - Other intervertebral disc degeneration, lumbar region without mention of lumbar back pain or lower extremity pain Plan I did discuss with patient in future that we can always do some injections if the pain does not improve and continues to worsen. Patient will be followed up regarding this at upcoming appointments. We will refill his oxycodone and provide a 1 month supply of this medication. Patient will return to clinic in 1 month. Risks and benefits of the medication have been explained in detail to the patient. The patient does understand the risk of dependence on the medication when given over a prolonged period. Patient has been advised of risks of oversedation with the prescribed medication. Narcan has been offered to the paitent in the event of oversedation. Patient has been advised that a family member should also be educated regarding administration of Narcan. The patient has been advised to consult with his/her primary care provider and pharmacist regarding drug-drug interaction of medications currently prescribed. Patient has been prescribed a controlled substance after being counseled on the medication, medication safety, and possible side effects. Opioid contract was reviewed and signed by the patient, and that they have agreed to all of the terms set forth by our compliance program. A UDS is needed to verify patient's compliance with our office pain contract. This is ordered based off specific treatments related to chronic pain with the potential to abuse certain medications. Patient has been instructed to contact the clinic with any concerns before the next appointment. Dr. Oleary has reviewed this note and agrees with this plan of care. This note was dictated using voice recognition software and make contain errors or omissions.
== END 2024-12-28 23:59 | disposition home or self-care (01) ==
PROVIDERS: Visit Provider Nurse Practitioner Family
DX: M51.360 Other intervertebral disc degeneration, lumbar region with discogenic back pain only (principal); Z79.891 Long term (current) use of opiate analgesic
CPT/HCPCS: 99212; G0463